=== PATIENT | female | born 1950 | race Caucasian/White ===

== ENCOUNTER 2020-01-17 14:19 | Outpatient (REF) | payer MEDICARE, SELFPAY ==
--- NOTE | 2020-01-17 15:36 | XR_ITS ---
EXAMINATION: XR CHEST CLINICAL INFORMATION: Other specified symptoms and signs involving the circulatory and respiratory systems; R09.89 COMPARISON: Chest radiographs 05/10/2014, 06/09/2013 TECHNIQUE: 2 frontal views and a lateral projection are obtained for a total of 3 views. FINDINGS: The heart is normal in size. The costophrenic sulci are clear. There is even distribution pulmonary vascularity which may suggest some elevated pulmonary venous pressures. There is coarsening of the bronchiolar markings. There is no lobar segmental airspace consolidation or groundglass opacity. The hilar and mediastinal contours and visualized bony structures show no acute abnormality. XR/XR chest 2V IMPRESSION: 1. Even distribution pulmonary vascularity which may suggest mild elevated pulmonary venous pressures. 2. Coarsening bronchiolar markings. No airspace consolidation or effusion.
[2020-01-17 16:37] LABS: MANUAL DIFF FLAG NO
[2020-01-17 16:42] LABS: Basophils Absolute Auto 0.1 X10*3/uL (0.0-0.2); Basophils Percent Auto 0.7 % (0-2); Eosinophils Absolute Auto 0.1 X10*3/uL (0.0-0.4); Eosinophils Percent Auto 0.9 % (0-4); Hematocrit 40.1 % (37-47); Hemoglobin 12.9 g/dl (12.0-16.0); Imm Gran Abs Auto 0.03 X10*3/uL (0.00-0.03); Imm Gran Pct Auto 0.4 % (0.0-0.4); Mean Corpuscular HGB Conc 32.2 g/dl (31.0-35.0); Mean Corpuscular Hemoglobin 31.4 pg (27.0-33.0); Mean Corpuscular Volume 97.6 fL (80-98); Mean Platelet Volume 11.7 fL (9.4-12.3); Monocytes Absolute Auto 0.5 X10*3/uL (0.1-1.2); Monocytes Percent Auto 6.1 % (2-11); Neutrophils Absolute Auto 3.8 X10*3/uL (2.0-8.3); Neutrophils Percent Auto 51.9 % (45-73); Platelet Count 264 X10*3/uL (160-400); Red Blood Count 4.11 X10*6/uL (4.20-5.50); Red Cell Distribution Width 12.8 % (11.0-16.0); White Blood Count 7.4 X10*3/uL (4.8-10.8)
[2020-01-17 16:52] LABS: D Dimer 200 NG/ML
[2020-01-17 17:04] LABS: Anion Gap 14 (12-20); Blood Urea Nitrogen 14 mg/dL (9-16); Calcium 9.6 mg/dL (8.4-10.2); Carbon Dioxide 30 mmol/L (22-29); Chloride 102 mmol/L (96-108); Estimated Glomerular Filt Rate > 60; Glucose Random 90 mg/dL (60-115); Potassium 4.2 mmol/l (3.3-5.1); Sodium 142 mmol/L (135-145)
[2020-01-17 17:29] LABS: Erythrocyte Sedimentation Rate 36 MM/HR (0-20)
[2020-01-18 12:32] LABS: Scleroderma 70 Antibody <1.0 NEG AI (<1.0 NEG)
[2020-01-19 13:56] LABS: Anti Nuclear Antibody Screen NEGATIVE (NEGATIVE)
[2020-01-21 20:31] LABS: Angiotensin Converting Enzyme 30 U/L (9-67)
== END 2020-01-17 14:20 | disposition home or self-care (01) ==
LOC: HO.LAB 14:19
PROVIDERS: PCP Emergency Medicine; Visit Provider Hospitalist
DX: I27.21 Secondary pulmonary arterial hypertension (principal); R09.89 Other specified symptoms and signs involving the circulatory and respiratory systems; R06.00 Dyspnea, unspecified; G47.33 Obstructive sleep apnea (adult) (pediatric); G47.00 Insomnia, unspecified; Z79.899 Other long term (current) drug therapy; Z79.82 Long term (current) use of aspirin
CPT/HCPCS: 36415; 71046; 80048; 82164; 85025; 85379; 85652; 86038; 86039; 86235; 99204; 99212

== ENCOUNTER → 2020-01-24 10:57 | Outpatient (REF) | payer MEDICARE, SELFPAY ==
[2020-01-24 12:28] LABS: Estimated Average Glucose 123 mg/dL; Hemoglobin A1c % 5.9 %
[2020-01-24 12:45] LABS: Alanine Aminotransferase 20 U/L (0-31); Albumin Level 4.2 g/dL (3.5-5.0); Alkaline Phosphatase 75 U/L (39-117); Anion Gap 14 (12-20); Aspartate Amino Transferase 17 U/L (5-31); Bilirubin Total 0.4 mg/dL (0.0-1.0); Blood Urea Nitrogen 15 mg/dL (9-16); Calcium 8.7 mg/dL (8.4-10.2); Carbon Dioxide 30 mmol/L (22-29); Chloride 102 mmol/L (96-108); Cholesterol 140 mg/dL; Estimated Glomerular Filt Rate > 60; Glucose Random 134 mg/dL (60-115); HDL Cholesterol 48 mg/dL; LDL Cholesterol Calculated 75 mg/dl; Potassium 4.2 mmol/l (3.3-5.1); Sodium 142 mmol/L (135-145); Total Protein 7.5 g/dL (6.5-8.0); Triglycerides 85 mg/dL
== END ==
LOC: HO.SL 10:57
PROVIDERS: PCP Emergency Medicine; Visit Provider Hospitalist
DX: E11.9 Type 2 diabetes mellitus without complications (principal); E78.2 Mixed hyperlipidemia; I11.0 Hypertensive heart disease with heart failure; I50.32 Chronic diastolic (congestive) heart failure; G47.33 Obstructive sleep apnea (adult) (pediatric)
CPT/HCPCS: 80053; 80061; 83036; 95806

== ENCOUNTER → 2020-03-21 14:26 | Outpatient (BNVA) | payer MEDICARE, SELFPAY | PROVIDERS: PCP Emergency Medicine; Visit Provider Hospitalist | DX: I27.21 Secondary pulmonary arterial hypertension (principal); G47.33 Obstructive sleep apnea (adult) (pediatric); R09.89 Other specified symptoms and signs involving the circulatory and respiratory systems; R06.00 Dyspnea, unspecified | CPT/HCPCS: 99212 ==

== ENCOUNTER 2020-03-29 10:11 | Outpatient (REF) | payer MEDICARE, SELFPAY | END 2020-03-29 10:12 | disposition home or self-care (01) | LOC: HO.LAB 10:11 | PROVIDERS: Visit Provider Internal Medicine | DX: Z20.828 Contact with and (suspected) exposure to other viral communicable diseases (principal) | CPT/HCPCS: 36415; C9803; U0003 ==

== ENCOUNTER → 2020-05-19 14:05 | Outpatient (BNVA) | payer MEDICARE, SELFPAY | PROVIDERS: Visit Provider Hospitalist | DX: G47.33 Obstructive sleep apnea (adult) (pediatric) (principal); I27.21 Secondary pulmonary arterial hypertension | CPT/HCPCS: 99212 ==

== ENCOUNTER 2020-07-11 10:36 | Outpatient (REF) | payer MEDICARE, SELFPAY ==
--- NOTE | 2020-07-11 16:46 | PFT_ITS ---
FLOWS: FEV1 of 59% of predicted at 1.16 L. FVC 46% of predicted at 1.19 L. FEV1 to FVC ratio of 0.98. No bronchodilator response. LUNG VOLUMES: Total lung capacity 49% of predicted at 2.20 L. Residual volume 47% of predicted at 0.93 L. Slow vital capacity 50% of predicted at 1.27 L. Expiratory reserve volume 35% of predicted at 0.20 L. Diffusion capacity is moderately decreased, diffusion capacity adjust to normal after correction for alveolar ventilation. IMPRESSION: Moderate to severe restrictive ventilatory defect with no bronchodilator response. Cirilo Steiner MD AP/MODL / [id number]
== END 2020-07-11 10:37 | disposition home or self-care (01) ==
LOC: HO.RESP 10:36
PROVIDERS: Visit Provider Hospitalist
DX: R06.00 Dyspnea, unspecified (principal)
CPT/HCPCS: 94060; 94727; 94729

== ENCOUNTER 2020-07-18 08:44 | Outpatient (REF) | payer MEDICARE, SELFPAY ==
--- NOTE | ~2020-07-18 | US_ITS ---
EXAMINATION: US ABDOMEN LIMITED CLINICAL INFORMATION: Fatty change of liver. COMPARISON: Ultrasound abdomen 08/12/2019. Ultrasound renals 03/29/2019. X-ray KUB 09/09/2018. CT abdomen pelvis 09/08/2018. Exam is limited due to patient body habitus. TECHNIQUE: Real-time imaging of the right upper quadrant abdominal viscera. FINDINGS: PANCREAS: Normal. LIVER: The liver is normal in size. The liver contour is normal. Liver echotexture is increased. No focal hepatic lesion. There is no intrahepatic biliary duct dilatation seen. GALLBLADDER: Surgically absent. COMMON BILE DUCT: The common bile duct is slightly dilated and measures 1.2 cm in diameter. This may be normal postcholecystectomy. This is unchanged from previous exam. RIGHT KIDNEY: There is a 1 x 0.7 x 0.9 cm cyst in the upper pole. No hydronephrosis or renal calculi. The kidney measures 13.0 cm in maximum dimension. FREE FLUID: None. US/US abdomen limited IMPRESSION: Limited exam. Slightly echogenic liver probably representing fatty infiltration. Postcholecystectomy. Slightly dilated common bile duct similar to previous exam. This may be normal postcholecystectomy. Small right renal cyst.
== END 2020-07-18 08:45 | disposition home or self-care (01) ==
LOC: HO.US 08:44
PROVIDERS: Visit Provider Nurse Practitioner
DX: K76.0 Fatty (change of) liver, not elsewhere classified (principal)
CPT/HCPCS: 76705

== ENCOUNTER → 2020-07-24 09:01 | Outpatient (BNVA) | payer MEDICARE, SELFPAY | PROVIDERS: Visit Provider Nurse Practitioner | DX: Z13.89 Encounter for screening for other disorder (principal) | CPT/HCPCS: Q3014 ==

== ENCOUNTER 2020-10-19 13:20 | Outpatient (REF) | payer MEDICARE, SELFPAY ==
--- NOTE | ~2020-10-19 | US_ITS ---
EXAMINATION: US RETROPERITONEAL LIMITED (RENAL ONLY) CLINICAL INFORMATION: Renal stone. COMPARISON: Ultrasound abdomen limited dated 07/18/2020. Ultrasound abdomen complete dated 08/12/2019. KUB dated 09/09/2018. CT abdomen and pelvis without contrast dated 09/08/2018. TECHNIQUE: Real-time imaging of the kidneys. FINDINGS: RIGHT KIDNEY: 12.9 x 5.2 x 5.7 cm (SAG x AP x TRV). The kidney is normal in size, contour, and echogenicity. Renal cortical thickness is normal. No renal calculi or hydronephrosis. There is an anechoic midpole cyst measuring 0.9 x 0.9 x 1.1 cm. LEFT KIDNEY: 12.4 x 4.8 x 4.5 cm (SAG x AP x TRV). The kidney is normal in size, contour, and echogenicity. Renal cortical thickness is normal. No renal calculi or hydronephrosis. There is an anechoic midpole cyst measuring 1.5 x 1.0 x 0.9 cm. US/US renal BI IMPRESSION: Bilateral renal cysts. Bilateral renal cysts were visualized on the previous ultrasound exam 08/12/2019. No echogenic stones or hydronephrosis.
== END 2020-10-19 13:21 | disposition home or self-care (01) ==
LOC: HO.US 13:20
PROVIDERS: Visit Provider Urology
DX: N20.0 Calculus of kidney (principal)
CPT/HCPCS: 76775

== ENCOUNTER 2020-10-30 06:33 | Day surgery (SDC) | payer MEDICARE, SELFPAY ==
[2020-10-23 12:35] VITALS: BMI 35.9
[2020-10-30 06:53] VITALS: BP 148/57; PULSE 67; RESP 16; TEMP 36.4; O2SAT 95
--- NOTE | 2020-10-30 07:08 | MHC.SHP ---
Pre-Procedural Eval Section A Date of Service: 10/30/20 The patient is an INPATIENT: No The History & Physical has been completed within 30 days and I have reviewed it.: No Section B Chief Complaint: colon cancer screening, GERD Details of Present Illness: Colon cancer screening, diarrhea, constipation, abdominal, GERD Relevant Family History (Specify if Yes): No Relevant Social History: None Present Medications: see Short Stay Collaborative assessment Medical History: Significant History (Bibasilar crackles Dyspnea Insomnia JAREK (obstructive sleep apnea) Pulmonary arterial hypertension) History of Previous Operations: Relevant previous surgery/procedure and date(s) (H/O esophagogastroduodenoscopy History of colonoscopy History of hernia repair) Allergies: Allergies Allergy/AdvReac Type Severity Reaction Status Date / Time morphine [MORPHINE] Allergy Mild NAUSEA, Verified 07/24/20 09:01 VOMITING, DIZZINESS, HOT FLASHES lactose Allergy Mild GI Upset Uncoded 05/19/20 14:45 Review of Systems Sugical H&P ROS: Negative: Constitution, Cardiovascular and Respiratory and Yes, Specify: Gastrointestinal (diarrhea and constipation) Exam Surgical H&P Exam: Normal: Heart, Normal: Lungs, Normal: Extremities and Normal: Abdomen Plan Diagnosis/Plan: Unchanged I have reviewed the history and physical and performed a pertinent physical examination on my patient. No changes have occurred unless specified.
[2020-10-30 07:10] LABS: Glucose, Whole Blood 154 mg/dL (60-115)
--- NOTE | 2020-10-30 07:15 | P.CONAN_ITS ---
[facility] Active Problems Active Problems: All Active Problems (Updated 10/23/20 @ 12:33 by Enedina warner) Hepatic steatosis (Acute) GERD (gastroesophageal reflux disease) (Acute) Abdominal bloating (Acute) Colon cancer screening (Acute) JAREK (obstructive sleep apnea) (Acute) Insomnia (Acute) JAREK (obstructive sleep apnea) (Acute) Pulmonary arterial hypertension (Acute) Bibasilar crackles (Acute) Dyspnea (Acute) Past Medical History Medical History Bibasilar crackles Diabetes Dyspnea History of postoperative nausea and vomiting Insomnia JAREK (obstructive sleep apnea) Pulmonary arterial hypertension Family History Family History Father Hx of diabetes insipidus Mother Hx of diabetes insipidus Surgical History Surgical History H/O esophagogastroduodenoscopy History of colonoscopy History of hernia repair History of Problems with Anesthesia: No Social History Social History Alcohol intake: never Patient Tobacco Use Status: Never used Tobacco Advance Directives Information Provided: No Meds Allergies Allergy/AdvReac Type Severity Reaction Status Date / Time morphine [MORPHINE] Allergy Mild NAUSEA, Verified 07/24/20 09:01 VOMITING, DIZZINESS, HOT FLASHES lactose Allergy Mild GI Upset Uncoded 05/19/20 14:45 Home Medications Medication Instructions Recorded Confirmed Last Taken Type albuterol sulfate 90 mcg/actuation 2 puff INHALATION Q4-6H PRN 01/17/20 10/23/20 Unknown History aerosol inhaler amlodipine 10 mg tablet 10 mg PO DAILY 01/17/20 10/23/20 10/30/20 History aspirin 81 mg tablet,delayed 81 mg PO DAILY 01/17/20 10/23/20 Unknown History release atorvastatin 40 mg tablet 40 mg PO BEDTIME 01/17/20 10/23/20 Unknown History cholecalciferol (vitamin D3) 50 50 mcg PO DAILY 01/17/20 10/23/20 Unknown History mcg (2,000 unit) tablet cyanocobalamin (vitamin B-12) 1,000 mcg PO DAILY 01/17/20 10/23/20 Unknown History 1,000 mcg tablet flu vacc [id number](65yr up)-PF 240 ml IM 01/17/20 05/19/20 Unknown History mcg/0.7 mL intramuscular syringe furosemide 20 mg tablet 20 mg PO DAILY 01/17/20 10/23/20 Unknown History losartan 100 mg tablet 100 mg PO DAILY 01/17/20 10/23/20 Unknown History melatonin 5 mg tablet 10 mg PO BEDTIME 01/17/20 10/23/20 Unknown History metoprolol succinate 200 mg 200 mg PO DAILY 01/17/20 10/23/20 10/30/20 History tablet,extended release 24 hr oxycodone-acetaminophen 5 mg-325 1 tab PO TID PRN 01/17/20 10/23/20 Unknown History mg tablet sitagliptin 50 mg tablet 50 mg PO QAM 01/17/20 10/23/20 Unknown History blood sugar diagnostic #10 ea 07/24/20 Unknown History lancets 33 gauge #100 ea 07/24/20 Unknown History metformin 500 mg tablet,extended 1,000 mg PO BID 07/24/20 10/23/20 Unknown History release 24 hr Exam Exam Date and Time: October 30, 2020 0715 Height,Weight and Vital Signs: Height 5 ft Weight 83.461 kg Last Vital Signs Temp 97.5 F 10/30/20 06:53 Pulse 67 10/30/20 06:53 Resp 16 10/30/20 06:53 BP 148/57 H 10/30/20 06:53 Pulse Ox 95 10/30/20 06:53 Pertinent Lab Results Pertinent Lab Results: Laboratory Tests 10/30/20 06:59 POC Glucose 154 H Airway Mallampati Class: II TM Dist: >3cm Neck ROM: Full Loose/Missing/Broken Teeth: No Heart: RRR Lungs: bibasilar cerackles Assessment and Plan Assessment Anesthesia Assessment: Anesthesia Plan Discussed and Chart Reviewed Final Anesthetic Review History of Problems with Anesthesia: No NPO: Yes ASA Class: III Final Preanesthetic Review: Meds/Allgs Chart Reviewed, Consent Obtained/Reviewed and Anes Risks/Benef Reviewed Patient Risk: Intermediate Procedure Risk: Low Anesthetic Plan Anesthetic Plan: MAC: Disposition: Standard PACU
--- NOTE | 2020-10-30 07:40 | P.BOP_ITS ---
Brief Operative Note Date of Service: 10/30/20 Pre-op diagnosis: Colon cancer screening, abdominal pain, diarrhea, constipation Post-op diagnosis: other (Colon polyps, diverticulosis) Procedure: COLONOSCOPY TILL CECUM WITH BIOPSIES AND SNARE POLYPECTOMY Consent: Indications for the procedure and potential complications of bleeding, perforation, reaction to medications and missed diagnosis were discussed with the patient and informed consent was obtained. Instrument: Olympus CF HQ 190 L variable stiffness adult colonoscope Monitoring: Vital signs and clinical assessment, intermittent blood pressure monitoring, continuous EKG monitoring, Pulse oximetry and Carbon Dioxide monitoring were done throughout the procedure. Colon withdrawl time was 16 minutes. Procedure: The patient was placed in the left lateral decubitis position and pre-procedure medications were administered. After a digital rectal examination of the ano-rectum, the video colonoscope was inserted into the rectum and advanced through the colon to the cecum. The colonoscope was slowly withdrawn in a retrograde panoramic fashion and the colon mucosa was carefully examined including a retroflexed view of the rectum. Findings and interventions are described below. Procedure Difficulty: LLQ pressure applied to intubate the cecum Findings: Terminal Ileum: Not evaluated Cecum: Normal Ascending Colon: A 3-4 mm sessile polyp removed with a cold bx Transverse Colon: Two 10-12 mm sessile polyps removed with a cold snare Descending Colon: Moderate diverticulosis Sigmoid Colon: Severe diverticulosis Rectum: Normal Ano-rectum: Moderate internal hemorrhoids Colon preparation: Good Impression and Post Procedure Diagnosis: Colonoscopy Findings: Three small to medium sized polyps removed Moderate to severe diverticulosis seen in the left colon Plan: Await pathology results Patient has an appointment on 11/13/20 in the GI Clinic with Jeannine Rendon NP . Repeat Colonoscopy interval based on path results - in 3-5 years if polyps are adenomatous and 10 years if polyps are hyperplastic. Above findings were reviewed with the patient and colon polyps and diverticulosis handouts were given in the discharge area Surgeon: Pooja Irving MD Anesthesia: MAC (Leora Johnson CRNA) Was an Freight Forwarder used for this Procedure?: Yes Freight Forwarder: Gil Valadez Estimated blood loss (mL): 0 Pathology: other (A- ACSENDING COLON POLYP B- RANDOM COLON BXS R/O MICROSCOPIC COLITIS. C- POLYPS TRANSVERSE COLON) Condition: stable Disposition: PACU
[2020-10-30] MEDS: Lactated Ringers 1,000 ML 50 ML IVCONT (07:56)
[2020-10-30 08:29] VITALS: BP 97/51; PULSE 78; RESP 14; TEMP 36.2; O2SAT 96
[2020-10-30 08:44] VITALS: BP 118/64; PULSE 70; RESP 16; TEMP 36.2; O2SAT 97
--- NOTE | 2020-11-02 18:55 | P.OP_ITS ---
Operative Note Operative Note Date of Service: 10/30/20 Narrative: Pre-op diagnosis:?Colon cancer screening, abdominal pain, diarrhea, constipation Post-op diagnosis:?other (Colon polyps, diverticulosis) Procedure:? COLONOSCOPY TILL CECUM WITH BIOPSIES AND SNARE POLYPECTOMY Consent: Indications for the procedure and potential complications of bleeding, perforation, reaction to medications and missed diagnosis were discussed with the patient and informed consent was obtained. Instrument: Olympus CF HQ 190 L variable stiffness adult colonoscope Monitoring: Vital signs and clinical assessment, intermittent blood pressure monitoring, continuous EKG monitoring, Pulse oximetry and Carbon Dioxide monitoring were done throughout the procedure. Colon withdrawl time was 16 minutes. Procedure: The patient was placed in the left lateral decubitis position and pre-procedure medications were administered. After a digital rectal examination of the ano-rectum, the video colonoscope was inserted into the rectum and advanced through the colon to the cecum. The colonoscope was slowly withdrawn in a retrograde panoramic fashion and the colon mucosa was carefully examined including a retroflexed view of the rectum. Findings and interventions are described below. Procedure Difficulty:? LLQ pressure applied to intubate the cecum Findings: Terminal Ileum: Not evaluated Cecum:? Normal Ascending Colon:? A 3-4 mm sessile polyp removed with a cold bx Transverse Colon:? Two 10-12 mm sessile polyps removed with a cold snare Descending Colon:? Moderate diverticulosis Sigmoid Colon:? Severe diverticulosis Rectum:? Normal Ano-rectum:? Moderate internal hemorrhoids Colon preparation:? Good? Impression and Post Procedure Diagnosis: Colonoscopy Findings: Three small to medium sized polyps removed Moderate to severe diverticulosis seen in the left colon Plan: Await pathology results Patient has an appointment on 11/13/20 in the GI Clinic with? Jeannine Rendon NP . Repeat Colonoscopy interval based on path results - in 3-5 years if polyps are adenomatous and 10 years if polyps are hyperplastic. Above findings were reviewed with the patient and colon polyps and diverticulosis handouts were given in the discharge area Surgeon:?Pooja Irving MD Anesthesia:?MAC (Leora Johnson CRNA) Was an Washing Machine Repairer used for this Procedure?:?Yes Washing Machine Repairer:?Gil Valadez Estimated blood loss (mL):?0 Pathology:?other (A- ACSENDING COLON POLYP? B- RANDOM COLON BXS ? R/O MICROSCOPIC COLITIS.? C- POLYPS TRANSVERSE COLON) Condition:?stable Disposition:?PACU
== END 2020-10-30 09:36 ==
PROVIDERS: Visit Provider Internal Medicine Gastroenterology
PROC: 0DJD8ZZ Inspection of Lower Intestinal Tract, Via Natural or Artificial Opening Endoscopic (ICD-10-PCS; CPT 45378; principal; 2020-10-30 07:30)
DX: Z12.11 Encounter for screening for malignant neoplasm of colon (principal); D12.2 Benign neoplasm of ascending colon; D12.3 Benign neoplasm of transverse colon; K57.30 Diverticulosis of large intestine without perforation or abscess without bleeding; K52.9 Noninfective gastroenteritis and colitis, unspecified; K21.9 Gastro-esophageal reflux disease without esophagitis; E11.9 Type 2 diabetes mellitus without complications; I27.21 Secondary pulmonary arterial hypertension; G47.33 Obstructive sleep apnea (adult) (pediatric); Z79.84 Long term (current) use of oral hypoglycemic drugs; Z79.82 Long term (current) use of aspirin; Z79.899 Other long term (current) drug therapy; Z88.8 Allergy status to other drugs, medicaments and biological substances
CPT/HCPCS: 45385; 45380; 82947; 88305

== ENCOUNTER → 2020-11-03 09:45 | Outpatient (BNVA) | payer MEDICARE, SELFPAY | DX: N32.81 Overactive bladder (principal); N28.1 Cyst of kidney, acquired | CPT/HCPCS: 99212 ==

== ENCOUNTER 2020-11-13 10:44 | Outpatient (REF) | payer MEDICARE, SELFPAY ==
--- NOTE | ~2020-11-13 | XR_ITS ---
EXAMINATION: XR THORACOLUMBAR SPINE CLINICAL INFORMATION: Radicular pain. COMPARISON: Chest x-ray January 17, 2020 TECHNIQUE: 2 views FINDINGS: Thoracic vertebrae have normal height and alignment. No fracture or bone destruction. There is multilevel degenerative spondylosis. There is [id number] multilevel disc height narrowing and bridging and nonbridging endplate spurs of the vertebrae. No paraspinal mass. XR/XR thoracic spine 2V IMPRESSION: Moderate to marked multilevel degenerative spondylosis of the spine. There is no acute abnormality of the spine.
[2020-11-13 11:52] LABS: MANUAL DIFF FLAG NO
[2020-11-13 12:01] LABS: Basophils Percent Auto 0.6 % (0-2); Eosinophils Absolute Auto 0.1 X10*3/uL (0.0-0.4); Eosinophils Percent Auto 1.2 % (0-4); Hemoglobin 12.7 g/dl (12.0-16.0); Imm Gran Abs Auto 0.02 X10*3/uL (0.00-0.03); Imm Gran Pct Auto 0.3 % (0.0-0.4); Lymphocytes Percent Auto 31.4 % (20-40); Mean Corpuscular HGB Conc 32.6 g/dl (31.0-35.0); Mean Corpuscular Hemoglobin 31.4 pg (27.0-33.0); Mean Corpuscular Volume 96.3 fL (80-98); Mean Platelet Volume 12.1 fL (9.4-12.3); Monocytes Absolute Auto 0.3 X10*3/uL (0.1-1.2); Monocytes Percent Auto 5.3 % (2-11); Neutrophils Absolute Auto 3.9 X10*3/uL (2.0-8.3); Neutrophils Percent Auto 61.2 % (45-73); Platelet Count 196 X10*3/uL (160-400); Red Blood Count 4.05 X10*6/uL (4.20-5.50); Red Cell Distribution Width 12.6 % (11.0-16.0); White Blood Count 6.4 X10*3/uL (4.8-10.8)
[2020-11-13 12:26] LABS: Alanine Aminotransferase 23 U/L (0-31); Albumin Level 4.2 g/dL (3.5-5.0); Alkaline Phosphatase 86 U/L (39-117); Anion Gap 10 (12-20); Aspartate Amino Transferase 18 U/L (5-31); Bilirubin Total 0.5 mg/dL (0.0-1.0); Blood Urea Nitrogen 14 mg/dL (9-16); Calcium 9.5 mg/dL (8.4-10.2); Carbon Dioxide 32 mmol/L (22-29); Chloride 102 mmol/L (96-108); Estimated Glomerular Filt Rate > 60; Glucose Random 223 mg/dL (60-115); Potassium 4.3 mmol/L (3.3-5.1); Sodium 140 mmol/L (135-145); Total Protein 7.5 g/dL (6.5-8.0)
[2020-11-15 11:48] LABS: Alpha Fetoprotein 1.9 ng/mL
== END 2020-11-13 10:45 | disposition home or self-care (01) ==
LOC: HO.LAB 10:44
PROVIDERS: Visit Provider Nurse Practitioner
DX: R10.9 Unspecified abdominal pain (principal); G89.29 Other chronic pain; K21.9 Gastro-esophageal reflux disease without esophagitis; K76.0 Fatty (change of) liver, not elsewhere classified; I27.21 Secondary pulmonary arterial hypertension
CPT/HCPCS: 36415; 72070; 80053; 82105; 85025; 99212

== ENCOUNTER → 2020-11-24 09:15 | Outpatient (BNVA) | payer MEDICARE, SELFPAY | CPT/HCPCS: Q3014 ==

== ENCOUNTER → 2021-02-13 13:33 | Outpatient (BNVA) | payer MEDICARE, SELFPAY | PROVIDERS: Visit Provider Nurse Practitioner | DX: K21.9 Gastro-esophageal reflux disease without esophagitis (principal); M47.814 Spondylosis without myelopathy or radiculopathy, thoracic region; R14.0 Abdominal distension (gaseous) | CPT/HCPCS: 99212 ==

== ENCOUNTER 2021-08-14 13:06 | Outpatient (REF) | payer OTHER, SELFPAY ==
--- NOTE | ~2021-08-14 | MM_ITS ---
EXAMINATION: MM SCREENING DIGITAL BREAST TOMOSYNTHESIS, BILATERAL CLINICAL INFORMATION: Screening. Asymptomatic. The lifetime risk of breast cancer based on the Tyrer-Cuzick Model is 3%. COMPARISON: Mammography: 01/20/2019, 09/16/2016, 05/15/2015 TECHNIQUE: Digital breast tomosynthesis is performed in both the craniocaudal and mediolateral oblique views along with computer-aided detection (CAD). Synthesized 2D images are generated from the tomosynthesis. FINDINGS: There are scattered areas of fibroglandular density (ACR BI-RADS breast composition Category b). There are no significant masses, abnormal calcifications, or other abnormalities. No developing density or architectural abnormality. The axilla are unremarkable. MM/MM tomosynthesis screening BI IMPRESSION: No mammographic evidence of malignancy. ASSESSMENT: BI-RADS 1: Negative RECOMMENDATION: Routine annual mammography screening. This patient's information was entered into a reminder system with a target due date for their next mammogram.
== END 2021-08-14 13:07 | disposition home or self-care (01) ==
LOC: HO.MAMMO 13:06
PROVIDERS: PCP General Practice; Visit Provider General Practice
DX: Z12.31 Encounter for screening mammogram for malignant neoplasm of breast (principal)
CPT/HCPCS: 77063; 77067

== ENCOUNTER → 2021-08-16 13:15 | Outpatient (BNVA) | payer OTHER, SELFPAY | PROVIDERS: PCP General Practice; Referring Provider General Practice; Visit Provider Nurse Practitioner | DX: K21.9 Gastro-esophageal reflux disease without esophagitis (principal); R14.0 Abdominal distension (gaseous); R10.30 Lower abdominal pain, unspecified; M47.814 Spondylosis without myelopathy or radiculopathy, thoracic region | CPT/HCPCS: 99212 ==

== ENCOUNTER 2021-09-25 08:59 | Outpatient (REF) | payer OTHER, SELFPAY ==
--- NOTE | ~2021-09-25 | CT_ITS ---
EXAMINATION: CT ABDOMEN AND PELVIS WITHOUT CONTRAST CLINICAL INFORMATION: Lower abdominal pain COMPARISON: Previous CT of the abdomen and pelvis August 2018, abdominal ultrasound June 2020 TECHNIQUE: Multidetector volumetric imaging was performed from the superior aspect of the liver through the pubic symphysis. Sagittal and coronal reformatted images were obtained on the technologist's workstation. This CT examination was performed using dose optimization techniques as appropriate, variously including the following: *Automated exposure control *Adjustment of mA and/or kV according to patient size (this includes techniques or standardized protocols for targeted exams where dose is matched to indication/reason for exam; i.e. extremities or head) *Use of iterative reconstruction technique DLP: 720 mGy-cm FINDINGS: LUNG BASES: The visualized lung bases are unremarkable. LIVER, GALLBLADDER, AND BILIARY TREE: The liver is normal in size, shape, and attenuation. No focal hepatic lesion. The gallbladder is not seen and has presumably been removed. There is no intrahepatic biliary duct dilatation. There is mild dilatation of the common bile duct measuring up to 1 cm. This may be normal postcholecystectomy and is similar to previous exam. PANCREAS: There is fatty filtration of the pancreas. SPLEEN: Unremarkable. ADRENAL GLANDS: Unremarkable. KIDNEYS AND URETERS: The kidneys are normal in size, shape, and attenuation. No hydronephrosis, hydroureter, or calculi seen. No perinephric stranding. BLADDER: Not optimally distended. GASTROINTESTINAL TRACT: There is mild diverticulosis of the colon. No evidence of diverticulitis is seen. There is mild wall thickening of the distal duodenum and proximal jejunum. Small and large bowel is otherwise normal. The appendix is unremarkable. There is abnormal appearance of the distal stomach questionable for ulcer for example axial image 19 and coronal reconstructed image 66 and sagittal reconstructed image 121. ABDOMINAL WALL: Postsurgical changes to the abdominal wall. LYMPH NODES: Normal. VASCULAR: Unremarkable. PELVIC VISCERA: The uterus appears to have been removed. No pelvic mass. OSSEOUS STRUCTURES: Degenerative changes of the spine. CT/CT abdomen pelvis wo con IMPRESSION: Abnormal appearance to the distal stomach questionable for ulcer. Correlation with endoscopy recommended. Mild wall thickening of the distal duodenum and proximal jejunum. Mild diverticulosis of the colon. No evidence of diverticulitis. Fleischner guidelines were followed.
== END 2021-09-25 09:00 | disposition home or self-care (01) ==
LOC: HO.CT 08:59
PROVIDERS: Visit Provider Nurse Practitioner
DX: R10.30 Lower abdominal pain, unspecified (principal)
CPT/HCPCS: 74176

== ENCOUNTER 2021-10-16 12:47 | Outpatient (REF) | payer OTHER, SELFPAY ==
--- NOTE | ~2021-10-16 | US_ITS ---
EXAMINATION: US RETROPERITONEAL LIMITED (RENAL ONLY) CLINICAL INFORMATION: Cyst of kidney, acquired. COMPARISON: CT abdomen and pelvis 09/25/2021. Renal ultrasound 10/19/2020. Limited abdominal ultrasound 07/18/2020. X-ray abdomen KUB 09/09/2018. TECHNIQUE: Real-time imaging of the kidneys. FINDINGS: RIGHT KIDNEY: 12.2 x 4.9 x 5.1 cm (SAG x AP x TRV). The kidney is normal in size, contour, and echogenicity. Renal cortical thickness is normal. No renal calculi or hydronephrosis. There is a midpole 0.9 cm simple cyst. No follow-up imaging recommended. LEFT KIDNEY: 12.8 x 4.2 x 4.1 cm (SAG x AP x TRV). The kidney is normal in size, contour, and echogenicity. Renal cortical thickness is normal. No renal calculi or hydronephrosis. There is a 1 cm midpole simple cyst. No follow-up imaging recommended. US/US renal BI IMPRESSION: Small simple cysts of the kidneys, similar to previous. No follow-up imaging is recommended. No suspicious findings.
== END 2021-10-16 12:48 | disposition home or self-care (01) ==
LOC: HO.US 12:47
DX: N28.1 Cyst of kidney, acquired (principal)
CPT/HCPCS: 76775

== ENCOUNTER → 2021-10-26 11:31 | Outpatient (BNVA) | payer OTHER, SELFPAY | PROVIDERS: PCP General Practice; Visit Provider Nurse Practitioner | DX: R10.30 Lower abdominal pain, unspecified (principal); K21.9 Gastro-esophageal reflux disease without esophagitis; R14.0 Abdominal distension (gaseous) | CPT/HCPCS: 99212 ==

== ENCOUNTER 2021-11-02 13:54 | Outpatient (REF) | payer OTHER, SELFPAY ==
--- NOTE | ~2021-11-02 | XR_ITS ---
EXAMINATION: XR CHEST CLINICAL INFORMATION: Other specified symptoms and signs involving the circulatory and respiratory systems COMPARISON: Previous chest x-ray December 2019 TECHNIQUE: 2 views of the chest FINDINGS: The cardiac and mediastinal contours are unremarkable. The lung volumes are low. There are coarse lung markings. There is no pleural effusion or pneumothorax. There are degenerative changes of the spine. XR/XR chest 2V IMPRESSION: Low lung volumes and coarse lung markings.
== END 2021-11-02 13:55 | disposition home or self-care (01) ==
LOC: HO.XRAY 13:54
PROVIDERS: Visit Provider Hospitalist
DX: I27.21 Secondary pulmonary arterial hypertension (principal); J44.9 Chronic obstructive pulmonary disease, unspecified; R09.89 Other specified symptoms and signs involving the circulatory and respiratory systems
CPT/HCPCS: 71046; 99212

== ENCOUNTER → 2021-12-24 13:29 | Outpatient (BNVA) | payer OTHER, SELFPAY | PROVIDERS: PCP General Practice; Visit Provider Hospitalist | DX: J44.9 Chronic obstructive pulmonary disease, unspecified (principal); I27.21 Secondary pulmonary arterial hypertension; J84.9 Interstitial pulmonary disease, unspecified; R41.3 Other amnesia; R93.89 Abnormal findings on diagnostic imaging of other specified body structures; G47.33 Obstructive sleep apnea (adult) (pediatric) | CPT/HCPCS: 99212 ==

== ENCOUNTER 2022-01-04 14:54 | Outpatient (REF) | payer OTHER, SELFPAY ==
--- NOTE | ~2022-01-04 | CT_ITS ---
EXAMINATION: CT CHEST WITHOUT CONTRAST CLINICAL INFORMATION: Interstitial lung disease COMPARISON: Previous chest x-ray most recent October 2021 TECHNIQUE: Multidetector volumetric CT imaging of the chest was done. Axial MIP volume rendering provided. Sagittal and coronal reformatted images were obtained. This CT examination was performed using dose optimization techniques as appropriate, variously including the following: *Automated exposure control *Adjustment of mA and/or kV according to patient size (this includes techniques or standardized protocols for targeted exams where dose is matched to indication/reason for exam; i.e. extremities or head) *Use of iterative reconstruction technique DLP: 160 mGy-cm FINDINGS: FORK TRUCK DRIVER: Low lung volumes and increased interstitial markings. LUNGS: The lung volumes are low. There are are increased peripheral or subpleural reticular markings and some increased groundglass attenuation. This is seen diffusely throughout the lungs but greatest at the lung bases. There is mild traction bronchiolectasis in the right lower lobe. No honeycombing. No pulmonary nodule. No endobronchial or endotracheal lesion. MEDIASTINUM: The mediastinum is normal. CORONARY ARTERY CALCIFICATION: Moderate. PLEURA: There is no pleural effusion. No pleural mass or thickening. AXILLA: No lymphadenopathy. UPPER ABDOMEN: Unremarkable. OSSEOUS STRUCTURES: There are degenerative changes of the spine. CT/CT chest wo IV con IMPRESSION: Low lung volumes and increased peripheral reticular markings and groundglass attenuation. Findings are suggestive of interstitial lung disease. Findings are nonspecific but would be consistent with IPF/UIP. Coronary artery calcification. Fleischner guidelines were followed.
== END 2022-01-04 14:55 | disposition home or self-care (01) ==
LOC: HO.CT 14:54
PROVIDERS: Visit Provider Hospitalist
DX: J44.9 Chronic obstructive pulmonary disease, unspecified (principal); J84.9 Interstitial pulmonary disease, unspecified; R93.89 Abnormal findings on diagnostic imaging of other specified body structures
CPT/HCPCS: 71250

== ENCOUNTER 2022-01-18 12:55 | Outpatient (REF) | payer OTHER, SELFPAY ==
--- NOTE | 2022-01-18 15:00 | PFT_ITS ---
Forced vital capacity 48%, FEV1 of 60%, FEV1/FVC ratio is 96, FEF 25-75 is 173%, and MVV 86%. Post bronchodilator therapy, there is no change. Total lung capacity 49%. Residual volume 47%, and diffusion capacity is 56%. CONCLUSION: Severe restrictive pulmonary disorder. No evidence of obstructive airway disorder. No response to bronchodilator therapy. Nadine Vergara MD MSMaira/MODL / [phone]
== END 2022-01-18 12:56 | disposition home or self-care (01) ==
LOC: HO.RESP 12:55
PROVIDERS: PCP General Practice; Visit Provider Hospitalist
DX: J44.9 Chronic obstructive pulmonary disease, unspecified (principal); J84.9 Interstitial pulmonary disease, unspecified; R93.89 Abnormal findings on diagnostic imaging of other specified body structures
CPT/HCPCS: 94060; 94727; 94729

== ENCOUNTER → 2022-02-25 13:19 | Outpatient (BNVA) | payer OTHER, SELFPAY | PROVIDERS: PCP General Practice; Visit Provider Hospitalist | DX: I27.21 Secondary pulmonary arterial hypertension (principal); J44.9 Chronic obstructive pulmonary disease, unspecified; J84.9 Interstitial pulmonary disease, unspecified | CPT/HCPCS: 99212 ==

== ENCOUNTER 2022-04-07 16:07 | Emergency (ER) | payer OTHER, SELFPAY ==
--- NOTE | ~2022-04-07 | XR_ITS ---
EXAMINATION: XR CHEST CLINICAL INFORMATION: Right-sided chest pain. Pneumonia. COMPARISON: CT chest 01/04/2022. Chest radiograph 11/02/2021. TECHNIQUE: 2 views of the chest were obtained. FINDINGS: Low lung volumes are noted with the fourth anterior rib segments terminating projection with the lung bases. The cardiac silhouette is normal in size. No effusions or pneumothoraces identified. Biapical chronic appearing pleural parenchymal scarring of the lungs is noted. No focal pulmonary consolidation identified. Making allowances for low lung volumes, a grossly normal pattern of pulmonary vasculature is visualized. XR/XR chest 2V IMPRESSION: Low lung volumes; otherwise, no acute cardiopulmonary abnormalities identified. If clinical concern is present regarding possible right-sided pneumonia, consider repeat chest radiographs with deep inspiratory effort or CT of the thorax as clinically indicated which may better visualize acute right lung abnormalities.
[2022-04-07 16:12] VITALS: BP 133/97; PULSE 105; RESP 18; TEMP 36.8; O2SAT 97; BMI 29.2
--- NOTE | 2022-04-07 16:15 | ECG_ITS ---
Test Reason : CHEST PAIN Blood Pressure : / mmHG Vent. Rate : 102 BPM Atrial Rate : 102 BPM P-R Int : 136 ms QRS Dur : 074 ms QT Int : 334 ms P-R-T Axes : 046 001 022 degrees QTc Int : 435 ms Sinus tachycardia with occasional Premature ventricular complexes Otherwise normal ECG When compared with ECG of 09-SEP-2018 16:57, Nonspecific T wave abnormality, improved in Inferior leads Referred By: Talha Izaguirre Electronically Signed By:TERESA LEE MD
--- NOTE | 2022-04-07 16:17 | ED.CHESTPAIN ---
HPI - Chest Pain General Chief Complaint: Chest Pain <VLAD Vallejo - Last Filed: 04/07/22 20:03> Stated Complaint: chest pain/sob <VLAD Vallejo - Last Filed: 04/07/22 20:03> Time Seen by Provider: 04/07/22 17:55 <VLAD Vallejo - Last Filed: 04/07/22 20:03> Source: patient <Mitchel Cleaning MD - Last Filed: 04/07/22 20:07> Mode of arrival: ambulatory <Mitchel Cleaning MD - Last Filed: 04/07/22 20:07> Limitations: no limitations <Mitchel Cleaning MD - Last Filed: 04/07/22 20:07> History of Present Illness HPI narrative: Patient is 71 years old with history of COPD, interstitial lung fibrosis, pulmonary arterial hypertension, hypertension comes here for cough with bilateral chest pain for last 1 week patient been coughing with mucoid phlegm no fever no chills no palpitation leg swelling <Mitchel Cleaning MD - Last Filed: 04/07/22 20:07> Related Data Home Medications: Home Medications Medication Instructions Recorded Confirmed albuterol sulfate 90 mcg/actuation 2 puff inhalation Q4-6H PRN 01/17/20 11/24/20 aerosol inhaler Wheezing amlodipine 10 mg tablet 10 mg PO DAILY 01/17/20 11/24/20 aspirin 81 mg tablet,delayed 81 mg PO DAILY 01/17/20 11/24/20 release atorvastatin 40 mg tablet 40 mg PO BEDTIME 01/17/20 11/24/20 cholecalciferol (vitamin D3) 50 50 mcg PO DAILY 01/17/20 11/24/20 mcg (2,000 unit) tablet cyanocobalamin (vitamin B-12) 1,000 mcg PO DAILY 01/17/20 11/24/20 1,000 mcg tablet flu vacc [id number](65yr up)-PF 240 ml IM 01/17/20 11/24/20 mcg/0.7 mL intramuscular syringe furosemide 20 mg tablet 20 mg PO DAILY 01/17/20 11/24/20 losartan 100 mg tablet 100 mg PO DAILY 01/17/20 11/24/20 melatonin 5 mg tablet 10 mg PO BEDTIME 01/17/20 11/24/20 metoprolol succinate 200 mg 200 mg PO DAILY 01/17/20 11/24/20 tablet,extended release 24 hr oxycodone-acetaminophen 5 mg-325 1 tab PO TID PRN Pain 01/17/20 11/24/20 mg tablet sitagliptin phosphate 50 mg tablet 50 mg PO QAM 01/17/20 11/24/20 blood sugar diagnostic #10 ea 07/24/20 11/24/20 lancets 33 gauge #100 ea 07/24/20 11/24/20 metformin 500 mg tablet,extended 1,000 mg PO BID 07/24/20 11/24/20 release 24 hr alcohol swabs (Alcohol Prep Pads) 0 pad topical 11/03/20 11/24/20 Previous Rx's Medication Instructions Recorded budesonide-formoterol HFA 160 2 puff inhalation BID 30 days 11/02/21 mcg-4.5 mcg/actuation aerosol #10.2 grams inhaler (Symbicort) simethicone 180 mg capsule 180 mg PO BID #60 caps 12/17/21 oxybutynin chloride 10 mg 10 mg PO DAILY OAB 90 days #90 tabs 12/25/21 tablet,extended release 24 hr trazodone 50 mg tablet 100 mg PO BEDTIME #60 tabs 01/14/22 [id number] 1 cap PO QID 30 days #120 caps 03/22/22 24,000-76,000-120,000 unit capsule,delayed rel (Creon) omeprazole 20 mg capsule,delayed 20 mg PO BID #60 caps 03/22/22 release <VLAD Vallejo - Last Filed: 04/07/22 20:03> Allergies/Adverse Reactions: Allergies Allergy/AdvReac Type Severity Reaction Status Date / Time morphine [MORPHINE] Allergy Mild NAUSEA, Verified 04/07/22 16:11 VOMITING, DIZZINESS, HOT FLASHES lactose Allergy Mild GI Upset Uncoded 02/25/22 13:34 <VLAD Vallejo - Last Filed: 04/07/22 20:03> Review of Systems Review of Systems: Yes all other systems are reviewed and are negative <Mitchel Cleaning MD - Last Filed: 04/07/22 20:07> [facility] Past Medical History Medical History: Medical History (Updated 04/07/22 @ 20:00 by Mitchel Cleaning MD) Abnormal chest x-ray Bibasilar crackles COPD (chronic obstructive pulmonary disease) Diabetes Dyspnea History of postoperative nausea and vomiting ILD (interstitial lung disease) Insomnia Memory loss OAB (overactive bladder) JAREK (obstructive sleep apnea) Pulmonary arterial hypertension Renal cyst <VLAD Vallejo - Last Filed: 04/07/22 20:03> Surgical History: Surgical History H/O esophagogastroduodenoscopy History of colonoscopy History of hernia repair <VLAD Vallejo - Last Filed: 04/07/22 20:03> Family History Family History: Family History Father Hx of diabetes insipidus Mother Hx of diabetes insipidus <VLAD Vallejo - Last Filed: 04/07/22 20:03> Social History Social History: Social History Alcohol intake: never Patient Tobacco Use Status: Never used Tobacco Smoked in Last 30 Days: No Use of substances other than those prescribed or required for medical reasons: No Advance Directives: No Advance Directives Information Provided: Yes <VLAD Vallejo - Last Filed: 04/07/22 20:03> Physical Exam Vital Signs: Vital Signs: Last Vital Signs Temp 98.3 F 04/07/22 17:52 Pulse 94 04/07/22 18:40 Resp 18 04/07/22 18:40 BP 176/95 H 04/07/22 17:52 Pulse Ox 97 04/07/22 17:52 O2 Del Method 04/07/22 17:52 BMI result Body Mass Index 29.2 <VLAD Vallejo - Last Filed: 04/07/22 20:03> Vital Signs: Last Vital Signs Temp 98.3 F 04/07/22 17:52 Pulse 94 04/07/22 18:40 Resp 18 04/07/22 18:40 BP 176/95 H 04/07/22 17:52 Pulse Ox 97 04/07/22 17:52 O2 Del Method 04/07/22 17:52 BMI result Body Mass Index 29.2 <Mitchel Cleaning MD - Last Filed: 04/07/22 20:07> Appearance: Alert. Oriented X3. No acute distress. Eyes: PERRLA, No Nystagmus ENT: Pharynx normal. Oral Mucosa moist Neck: Normal inspection. Neck supple. CVS: Normal heart rate and rhythm. Pulses normal. Respiratory: No respiratory distress. Equal air entry bilateral, bilateral fine crackles at the bases Abdomen: Soft and nontender. Bowel sounds are present, no mass palpable, no CVA tenderness Skin: Skin warm and dry. Normal skin color. Normal skin turgor. Extremities: No lower extremity edema. No calf tenderness Neuro: Oriented X 3. No motor deficit. <Mitchel Cleaning MD - Last Filed: 04/07/22 20:07> Course Course Course Narrative: RME: Patient presents to the ED for coughing, chills, right sided chest pain, SoB and fatigue for the past 4 days. patient denies pleurisy or legs swelling labs and chest xray ordered <VLAD Vallejo - Last Filed: 04/07/22 20:03> Medications Administered Discontinued Medications Generic Name Dose Route Start Last Admin Trade Name Freq PRN Reason Stop Dose Admin Albuterol Sulfate 2.5 mg/ 5 mg 04/07/22 18:28 04/07/22 18:39 Albuterol Sulfate 2.5 mg INHALE 04/07/22 18:29 5 mg ONCE ONE Administration Albuterol Sulfate 2.5 mg/ 0 mg 04/07/22 18:28 04/07/22 18:39 Ipratropium [place] 0.5 mg INHALE 04/07/22 18:29 1 each ONCE ONE Administration Dexamethasone 10 mg 04/07/22 18:37 04/07/22 18:44 Dexamethasone 2 Mg Tablet PO 04/07/22 18:38 10 mg ONCE ONE Administration <VLAD Vallejo - Last Filed: 04/07/22 20:03> Medications Administered Discontinued Medications Generic Name Dose Route Start Last Admin Trade Name Freq PRN Reason Stop Dose Admin Albuterol Sulfate 2.5 mg/ 5 mg 04/07/22 18:28 04/07/22 18:39 Albuterol Sulfate 2.5 mg INHALE 04/07/22 18:29 5 mg ONCE ONE Administration Albuterol Sulfate 2.5 mg/ 0 mg 04/07/22 18:28 04/07/22 18:39 Ipratropium [place] 0.5 mg INHALE 04/07/22 18:29 1 each ONCE ONE Administration Dexamethasone 10 mg 04/07/22 18:37 04/07/22 18:44 Dexamethasone 2 Mg Tablet PO 04/07/22 18:38 10 mg ONCE ONE Administration <Mitchel Cleaning MD - Last Filed: 04/07/22 20:07> Medical Decision Making Medical Decision Making [facility] Narrative: Patient chronic lung disease with pulmonary fibrosis workup negative for any acute discharge patient on prednisone advised to continue inhaler 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 <Mitchel Cleaning MD - Last Filed: 04/07/22 20:07> Result Diagrams: 04/07/22 16:27 04/07/22 16:27 <VLAD Vallejo - Last Filed: 04/07/22 20:03> Labs: Lab Results 04/07/22 04/07/22 04/07/22 Range/Units 16:27 16:27 16:27 WBC 6.6 (4.8-10.8) X10*3/uL RBC 4.13 L (4.20-5.50) X10*6/uL Hgb 12.9 (12.0-16.0) g/dl Hct 39.6 (37.0-47.0) % MCV 95.9 (80.0-98.0) fL MCH 31.2 (27.0-33.0) pg MCHC 32.6 (31.0-35.0) g/dl RDW 12.3 (11.0-16.0) % Plt Count 262 (160-400) X10*3/uL MPV 10.9 (9.4-12.3) fL Immature Gran % (Auto) 0.3 (0.0-0.4) % Neut % (Auto) 59.4 (45-73) % Lymph % (Auto) 32.8 (20-40) % Clay % (Auto) 5.7 (2-11) % Eos % (Auto) 1.2 (0-4) % Baso % (Auto) 0.6 (0-2) % Lymph # (Auto) 2.2 (1.2-4.9) X10*3/uL Clay # (Auto) 0.4 (0.1-1.2) X10*3/uL Eos # (Auto) 0.1 (0.0-0.4) X10*3/uL Baso # (Auto) 0.0 (0.0-0.2) X10*3/uL Abs Immat Gran (auto) 0.02 (0.00-0.03) X10*3/uL Absolute Neuts (auto) 3.9 (2.0-8.3) x10*3/uL Absolute Nucleated RBC 0.000 (0.0-0.012) X10*3/uL Nucleated RBC % (auto) 0.0 (0.0-0.2) /100WBC PT 11.7 (10.0-13.1) SEC INR 1.0 (0.9-1.1) APTT 28.6 (26.0-36.4) SEC Sodium 141 (135-145) mmol/L Potassium 4.0 (3.3-5.1) mmol/L Chloride 104 (96-108) mmol/L Carbon Dioxide 26 (22-29) mmol/L Anion Gap 15 (12-20) BUN 13 (9-16) mg/dL Creatinine 0.75 (0.5-1.4) mg/dL Estim Creat Clear Calc 60.9 Estimated GFR > 60 Random Glucose 242 H (60-115) mg/dL Calcium 9.1 (8.4-10.2) mg/dL Total Bilirubin 0.4 (0.0-1.0) mg/dL AST 15 (5-31) U/L ALT 15 (0-31) U/L Alkaline Phosphatase 91 (39-117) U/L Troponin I High Sens (<3.5-17.0) ng/L B-Natriuretic Peptide (<100) pg/mL Total Protein 7.3 (6.5-8.0) g/dL Albumin 3.9 (3.5-5.0) g/dL Influenza Type A (PCR) (Negative) Influenza Type B (PCR) (Negative) RSV RNA Qual (PCR) (Negative) SARS-CoV-2 RNA (RT-PCR) (Negative) 04/07/22 04/07/22 04/07/22 Range/Units 16:27 16:27 16:27 WBC (4.8-10.8) X10*3/uL RBC (4.20-5.50) X10*6/uL Hgb (12.0-16.0) g/dl Hct (37.0-47.0) % MCV (80.0-98.0) fL MCH (27.0-33.0) pg MCHC (31.0-35.0) g/dl RDW (11.0-16.0) % Plt Count (160-400) X10*3/uL MPV (9.4-12.3) fL Immature Gran % (Auto) (0.0-0.4) % Neut % (Auto) (45-73) % Lymph % (Auto) (20-40) % Clay % (Auto) (2-11) % Eos % (Auto) (0-4) % Baso % (Auto) (0-2) % Lymph # (Auto) (1.2-4.9) X10*3/uL Clay # (Auto) (0.1-1.2) X10*3/uL Eos # (Auto) (0.0-0.4) X10*3/uL Baso # (Auto) (0.0-0.2) X10*3/uL Abs Immat Gran (auto) (0.00-0.03) X10*3/uL Absolute Neuts (auto) (2.0-8.3) x10*3/uL Absolute Nucleated RBC (0.0-0.012) X10*3/uL Nucleated RBC % (auto) (0.0-0.2) /100WBC PT (10.0-13.1) SEC INR (0.9-1.1) APTT (26.0-36.4) SEC Sodium (135-145) mmol/L Potassium (3.3-5.1) mmol/L Chloride (96-108) mmol/L Carbon Dioxide (22-29) mmol/L Anion Gap (12-20) BUN (9-16) mg/dL Creatinine (0.5-1.4) mg/dL Estim Creat Clear Calc Estimated GFR Random Glucose (60-115) mg/dL Calcium (8.4-10.2) mg/dL Total Bilirubin (0.0-1.0) mg/dL AST (5-31) U/L ALT (0-31) U/L Alkaline Phosphatase (39-117) U/L Troponin I High Sens < 3.5 (<3.5-17.0) ng/L B-Natriuretic Peptide 14 (<100) pg/mL Total Protein (6.5-8.0) g/dL Albumin (3.5-5.0) g/dL Influenza Type A (PCR) NEGATIVE (Negative) Influenza Type B (PCR) NEGATIVE (Negative) RSV RNA Qual (PCR) NEGATIVE (Negative) SARS-CoV-2 RNA (RT-PCR) NEGATIVE (Negative) <VLAD Vallejo - Last Filed: 04/07/22 20:03> Lab Results 04/07/22 04/07/22 04/07/22 Range/Units 16:27 16:27 16:27 WBC 6.6 (4.8-10.8) X10*3/uL RBC 4.13 L (4.20-5.50) X10*6/uL Hgb 12.9 (12.0-16.0) g/dl Hct 39.6 (37.0-47.0) % MCV 95.9 (80.0-98.0) fL MCH 31.2 (27.0-33.0) pg MCHC 32.6 (31.0-35.0) g/dl RDW 12.3 (11.0-16.0) % Plt Count 262 (160-400) X10*3/uL MPV 10.9 (9.4-12.3) fL Immature Gran % (Auto) 0.3 (0.0-0.4) % Neut % (Auto) 59.4 (45-73) % Lymph % (Auto) 32.8 (20-40) % Clay % (Auto) 5.7 (2-11) % Eos % (Auto) 1.2 (0-4) % Baso % (Auto) 0.6 (0-2) % Lymph # (Auto) 2.2 (1.2-4.9) X10*3/uL Clay # (Auto) 0.4 (0.1-1.2) X10*3/uL Eos # (Auto) 0.1 (0.0-0.4) X10*3/uL Baso # (Auto) 0.0 (0.0-0.2) X10*3/uL Abs Immat Gran (auto) 0.02 (0.00-0.03) X10*3/uL Absolute Neuts (auto) 3.9 (2.0-8.3) x10*3/uL Absolute Nucleated RBC 0.000 (0.0-0.012) X10*3/uL Nucleated RBC % (auto) 0.0 (0.0-0.2) /100WBC PT 11.7 (10.0-13.1) SEC INR 1.0 (0.9-1.1) APTT 28.6 (26.0-36.4) SEC Sodium 141 (135-145) mmol/L Potassium 4.0 (3.3-5.1) mmol/L Chloride 104 (96-108) mmol/L Carbon Dioxide 26 (22-29) mmol/L Anion Gap 15 (12-20) BUN 13 (9-16) mg/dL Creatinine 0.75 (0.5-1.4) mg/dL Estim Creat Clear Calc 60.9 Estimated GFR > 60 Random Glucose 242 H (60-115) mg/dL Calcium 9.1 (8.4-10.2) mg/dL Total Bilirubin 0.4 (0.0-1.0) mg/dL AST 15 (5-31) U/L ALT 15 (0-31) U/L Alkaline Phosphatase 91 (39-117) U/L Troponin I High Sens (<3.5-17.0) ng/L B-Natriuretic Peptide (<100) pg/mL Total Protein 7.3 (6.5-8.0) g/dL Albumin 3.9 (3.5-5.0) g/dL Influenza Type A (PCR) (Negative) Influenza Type B (PCR) (Negative) RSV RNA Qual (PCR) (Negative) SARS-CoV-2 RNA (RT-PCR) (Negative) 04/07/22 04/07/22 04/07/22 Range/Units 16:27 16:27 16:27 WBC (4.8-10.8) X10*3/uL RBC (4.20-5.50) X10*6/uL Hgb (12.0-16.0) g/dl Hct (37.0-47.0) % MCV (80.0-98.0) fL MCH (27.0-33.0) pg MCHC (31.0-35.0) g/dl RDW (11.0-16.0) % Plt Count (160-400) X10*3/uL MPV (9.4-12.3) fL Immature Gran % (Auto) (0.0-0.4) % Neut % (Auto) (45-73) % Lymph % (Auto) (20-40) % Clay % (Auto) (2-11) % Eos % (Auto) (0-4) % Baso % (Auto) (0-2) % Lymph # (Auto) (1.2-4.9) X10*3/uL Clay # (Auto) (0.1-1.2) X10*3/uL Eos # (Auto) (0.0-0.4) X10*3/uL Baso # (Auto) (0.0-0.2) X10*3/uL Abs Immat Gran (auto) (0.00-0.03) X10*3/uL Absolute Neuts (auto) (2.0-8.3) x10*3/uL Absolute Nucleated RBC (0.0-0.012) X10*3/uL Nucleated RBC % (auto) (0.0-0.2) /100WBC PT (10.0-13.1) SEC INR (0.9-1.1) APTT (26.0-36.4) SEC Sodium (135-145) mmol/L Potassium (3.3-5.1) mmol/L Chloride (96-108) mmol/L Carbon Dioxide (22-29) mmol/L Anion Gap (12-20) BUN (9-16) mg/dL Creatinine (0.5-1.4) mg/dL Estim Creat Clear Calc Estimated GFR Random Glucose (60-115) mg/dL Calcium (8.4-10.2) mg/dL Total Bilirubin (0.0-1.0) mg/dL AST (5-31) U/L ALT (0-31) U/L Alkaline Phosphatase (39-117) U/L Troponin I High Sens < 3.5 (<3.5-17.0) ng/L B-Natriuretic Peptide 14 (<100) pg/mL Total Protein (6.5-8.0) g/dL Albumin (3.5-5.0) g/dL Influenza Type A (PCR) NEGATIVE (Negative) Influenza Type B (PCR) NEGATIVE (Negative) RSV RNA Qual (PCR) NEGATIVE (Negative) SARS-CoV-2 RNA (RT-PCR) NEGATIVE (Negative) <Mitchel Cleaning MD - Last Filed: 04/07/22 20:07> Independent Interpretation I performed an independent interpretation of an: EKG <Mitchel Cleaning MD - Last Filed: 04/07/22 20:07> Interpretation: Sinus tachycardia with heart rate 102 beats per minute occasional unifocal PVC no acute ST-T changes no acute ischemia <Mitchel Cleaning MD - Last Filed: 04/07/22 20:07> Discharge Plan Discharge Clinical Impression: Chronic lung disease <VLAD Vallejo - Last Filed: 04/07/22 20:03> Patient Disposition: Home, Self-Care <VLAD Vallejo - Last Filed: 04/07/22 20:03> Instructions: Pulmonary Fibrosis (ED) <VLAD Vallejo - Last Filed: 04/07/22 20:03> Additional Instructions: Use inhaler as advised Cough drops as prescribed Prednisone as prescribed Follow with lung specialist <VLAD Vallejo - Last Filed: 04/07/22 20:03> Prescriptions: No Action simethicone 180 mg capsule 180 mg PO BID Qty: 60 3RF oxybutynin chloride 10 mg tablet extended release 24hr 10 mg PO DAILY 90 Days Qty: 90 0RF trazodone 50 mg tablet 100 mg PO BEDTIME Qty: 60 11RF Creon 24,000-76,000 -120,000 unit capsule,delayed release(DR/EC) 1 cap PO QID 30 Days Qty: 120 1RF Rx Instructions: administer with meals and/or snacks omeprazole 20 mg capsule,delayed release(DR/EC) 20 mg PO BID Qty: 60 1RF oxycodone-acetaminophen 5-325 mg tablet 1 tab PO TID PRN (Reason: Pain) flu vacc [id number](65yr up)-PF 240 mcg/0.7 mL syringe IM metoprolol succinate 200 mg tablet extended release 24 hr 200 mg PO DAILY losartan 100 mg tablet 100 mg PO DAILY sitagliptin phosphate 50 mg tablet 50 mg PO QAM cholecalciferol (vitamin D3) 50 mcg (2,000 unit) tablet 50 mcg PO DAILY furosemide 20 mg tablet 20 mg PO DAILY cyanocobalamin (vitamin B-12) 1,000 mcg tablet 1,000 mcg PO DAILY atorvastatin 40 mg tablet 40 mg PO BEDTIME aspirin 81 mg tablet,delayed release (DR/EC) 81 mg PO DAILY amlodipine 10 mg tablet 10 mg PO DAILY melatonin 5 mg tablet 10 mg PO BEDTIME albuterol sulfate 90 mcg/actuation HFA aerosol inhaler 2 puff inhalation Q4-6H PRN (Reason: Wheezing) metformin 500 mg tablet extended release 24 hr 1,000 mg PO BID (DME) blood sugar diagnostic Strip See Rx Instructions Not Applicable BID Qty: 10 Rx Instructions: As directed (DME) lancets 33 gauge misc See Rx Instructions .ROUTE .MEDSUPPLY Qty: 100 Rx Instructions: As directed alcohol swabs [Alcohol Prep Pads] Pads, Medicated 0 pad topical budesonide-formoterol [Symbicort] 160-4.5 mcg/actuation HFA aerosol inhaler 2 puff inhalation BID 30 Days Qty: 10.2 11RF <VLAD Vallejo - Last Filed: 04/07/22 20:03>
[2022-04-07 16:34] LABS: MANUAL DIFF FLAG NO
[2022-04-07 16:37] LABS: Basophils Percent Auto 0.6 % (0-2); Eosinophils Absolute Auto 0.1 X10*3/uL (0.0-0.4); Eosinophils Percent Auto 1.2 % (0-4); Hematocrit 39.6 % (37.0-47.0); Hemoglobin 12.9 g/dl (12.0-16.0); Imm Gran Abs Auto 0.02 X10*3/uL (0.00-0.03); Imm Gran Pct Auto 0.3 % (0.0-0.4); Lymphocytes Absolute Auto 2.2 X10*3/uL (1.2-4.9); Lymphocytes Percent Auto 32.8 % (20-40); Mean Corpuscular HGB Conc 32.6 g/dl (31.0-35.0); Mean Corpuscular Hemoglobin 31.2 pg (27.0-33.0); Mean Corpuscular Volume 95.9 fL (80.0-98.0); Mean Platelet Volume 10.9 fL (9.4-12.3); Monocytes Absolute Auto 0.4 X10*3/uL (0.1-1.2); Monocytes Percent Auto 5.7 % (2-11); Neutrophils Absolute Auto 3.9 x10*3/uL (2.0-8.3); Neutrophils Percent Auto 59.4 % (45-73); Platelet Count 262 X10*3/uL (160-400); Red Blood Count 4.13 X10*6/uL (4.20-5.50); Red Cell Distribution Width 12.3 % (11.0-16.0); White Blood Count 6.6 X10*3/uL (4.8-10.8)
[2022-04-07 16:43] LABS: Prothrombin Time 11.7 SEC (10.0-13.1)
[2022-04-07 16:46] LABS: Partial Thromboplastin Time 28.6 SEC (26.0-36.4)
[2022-04-07 16:56] LABS: Alanine Aminotransferase 15 U/L (0-31); Albumin Level 3.9 g/dL (3.5-5.0); Alkaline Phosphatase 91 U/L (39-117); Anion Gap 15 (12-20); Aspartate Amino Transferase 15 U/L (5-31); Bilirubin Total 0.4 mg/dL (0.0-1.0); Blood Urea Nitrogen 13 mg/dL (9-16); Calcium 9.1 mg/dL (8.4-10.2); Carbon Dioxide 26 mmol/L (22-29); Chloride 104 mmol/L (96-108); Creatinine Clr Calc Pharmacy 60.9; Estimated Glomerular Filt Rate > 60; Glucose Random 242 mg/dL (60-115); Sodium 141 mmol/L (135-145); Total Protein 7.3 g/dL (6.5-8.0)
[2022-04-07 17:01] LABS: B Type Natriuretic Peptide 14 pg/mL (<100)
[2022-04-07 17:06] LABS: Troponin-I High Sensitivity < 3.5 ng/L (<3.5-17.0)
[2022-04-07 17:14] LABS: Influenza A PCR NEGATIVE (Negative); Influenza B PCR NEGATIVE (Negative); Resp Syncy Virus RNA Qual PCR NEGATIVE (Negative); SARS COV2 PCR INHOUSE NEGATIVE (Negative)
[2022-04-07 17:52] VITALS: BP 176/95; PULSE 108; RESP 20; TEMP 36.8; O2SAT 97
--- NOTE | 2022-04-07 18:02 | PC.NURSE ---
patient a&ox3, vss, pt c/o mid-sternal chest pain with coughing only, lungs are diminished in the upper, crackles bilateral bases, labs drawn, ekg performed, swab obtained, will continue to monitor.
[2022-04-07] MEDS: Albuterol Sulfate 2.5 MG, Albuterol Sulfate (0.083%) 2.5 MG 5 MG INHALE (18:39)
[2022-04-07 18:40] VITALS: PULSE 94; RESP 18; O2SAT 97
[2022-04-07] MEDS: dexAMETHasone 2 MG TABLET 10 MG PO (18:44)
--- NOTE | 2022-04-07 18:44 | PC.NURSE ---
pt medicated per order, rt at bedside doing updraft
[2022-04-07 20:00] VITALS: BP 107/70; PULSE 120; RESP 16; TEMP 36.9; O2SAT 98
== END 2022-04-07 20:55 | disposition home or self-care (01) ==
PROVIDERS: Physician Assistant; Emergency Provider Internal Medicine; PCP General Practice
DX: J98.4 Other disorders of lung (principal); R06.02 Shortness of breath; I10 Essential (primary) hypertension; Z20.828 Contact with and (suspected) exposure to other viral communicable diseases; Z20.822 Contact with and (suspected) exposure to COVID-19; Z79.899 Other long term (current) drug therapy
CPT/HCPCS: 0241U; 36415; 71046; 80053; 83880; 84484; 85025; 85610; 85730; 93005; 94640; 94664; 96374; 99285; J8540

== ENCOUNTER → 2022-04-16 11:49 | Outpatient (BNVA) | payer OTHER, SELFPAY | PROVIDERS: PCP General Practice; Referring Provider General Practice; Visit Provider Nurse Practitioner | DX: K21.9 Gastro-esophageal reflux disease without esophagitis (principal); R14.0 Abdominal distension (gaseous); Z79.899 Other long term (current) drug therapy | CPT/HCPCS: 99212 ==

== ENCOUNTER → 2022-04-29 15:32 | Outpatient (BNVA) | payer OTHER, SELFPAY | PROVIDERS: PCP General Practice; Visit Provider Hospitalist | DX: I27.21 Secondary pulmonary arterial hypertension (principal); J84.9 Interstitial pulmonary disease, unspecified; J20.9 Acute bronchitis, unspecified | CPT/HCPCS: 99212 ==

== ENCOUNTER 2022-05-09 14:14 | Outpatient (REF) | payer OTHER, SELFPAY ==
[2022-05-09 14:31] LABS: MANUAL DIFF FLAG NO
[2022-05-09 14:38] LABS: Basophils Absolute Auto 0.1 X10*3/uL (0.0-0.2); Basophils Percent Auto 0.5 % (0-2); Eosinophils Absolute Auto 0.1 X10*3/uL (0.0-0.4); Eosinophils Percent Auto 0.8 % (0-4); Hematocrit 40.7 % (37.0-47.0); Hemoglobin 13.3 g/dl (12.0-16.0); Imm Gran Abs Auto 0.03 X10*3/uL (0.00-0.03); Imm Gran Pct Auto 0.3 % (0.0-0.4); Lymphocytes Percent Auto 32.8 % (20-40); Mean Corpuscular HGB Conc 32.7 g/dl (31.0-35.0); Mean Corpuscular Hemoglobin 31.7 pg (27.0-33.0); Mean Corpuscular Volume 97.1 fL (80.0-98.0); Monocytes Absolute Auto 0.5 X10*3/uL (0.1-1.2); Neutrophils Absolute Auto 5.6 x10*3/uL (2.0-8.3); Neutrophils Percent Auto 60.6 % (45-73); Platelet Count 303 X10*3/uL (160-400); Red Blood Count 4.19 X10*6/uL (4.20-5.50); Red Cell Distribution Width 12.7 % (11.0-16.0); White Blood Count 9.3 X10*3/uL (4.8-10.8)
[2022-05-09 18:31] LABS: Erythrocyte Sedimentation Rate 34 MM/HR (0-20)
[2022-05-11 02:43] LABS: Immunoglobulin E 67 kU/L (<OR=114)
[2022-05-12 14:53] LABS: Anti Nuclear Antibody Screen NEGATIVE (NEGATIVE)
[2022-05-13 14:03] LABS: Antibody to SS-A Antigen <1.0 NEG AI (<1.0 NEG); Antibody to SS-B Antigen <1.0 NEG AI (<1.0 NEG); Myeloperoxidase Antibody <1.0 AI; Proteinase 3 PR3 Antibodies <1.0 AI; Scleroderma 70 Antibody <1.0 NEG AI (<1.0 NEG)
[2022-05-14 06:48] LABS: Angiotensin Converting Enzyme 24.7 U/L (9-67)
[2022-05-14 13:09] LABS: Cyclic Citrullinated Peptide <16 UNITS
[2022-05-17 15:23] LABS: Asperg fumigatus Precip Abs NEGATIVE (NEGATIVE); Micropoly faeni Abs NEGATIVE (NEGATIVE); Pigeon serum Abs NEGATIVE (NEGATIVE); Saccharo pora viridis Abs NEGATIVE (NEGATIVE); Thermo candidus Abs NEGATIVE (NEGATIVE); Thermoa vulgaris #1 NEGATIVE (NEGATIVE)
== END 2022-05-09 14:15 | disposition home or self-care (01) ==
LOC: HO.LAB 14:14
PROVIDERS: PCP General Practice; Visit Provider Hospitalist
DX: J84.9 Interstitial pulmonary disease, unspecified (principal); R91.8 Other nonspecific abnormal finding of lung field
CPT/HCPCS: 36415; 82164; 82785; 85025; 85652; 86021; 86038; 86039; 86200; 86235; 86331; 86606; 86609

== ENCOUNTER → 2022-05-20 13:25 | Outpatient (BNVA) | payer OTHER, SELFPAY | PROVIDERS: PCP General Practice; Visit Provider Hospitalist | DX: I27.21 Secondary pulmonary arterial hypertension (principal); J84.9 Interstitial pulmonary disease, unspecified; J84.10 Pulmonary fibrosis, unspecified; J44.9 Chronic obstructive pulmonary disease, unspecified; Z79.52 Long term (current) use of systemic steroids | CPT/HCPCS: 99212 ==

== ENCOUNTER → 2022-06-18 12:55 | Outpatient (BNVA) | payer OTHER, SELFPAY | PROVIDERS: PCP General Practice; Visit Provider Hospitalist | DX: I27.21 Secondary pulmonary arterial hypertension (principal); J44.9 Chronic obstructive pulmonary disease, unspecified; J84.9 Interstitial pulmonary disease, unspecified; J98.4 Other disorders of lung | CPT/HCPCS: 99212 ==

== ENCOUNTER 2022-07-16 08:39 | Outpatient (REF) | payer OTHER, SELFPAY ==
--- NOTE | ~2022-07-16 | CT_ITS ---
EXAMINATION: CT CHEST WITHOUT CONTRAST CLINICAL INFORMATION: Interstitial pulmonary disease. COMPARISON: CT chest 01/04/2022. TECHNIQUE: Multidetector volumetric CT imaging of the chest was done. Axial MIP volume rendering provided. Sagittal and coronal reformatted images were obtained. This CT examination was performed using dose optimization techniques as appropriate, variously including the following: *Automated exposure control *Adjustment of mA and/or kV according to patient size (this includes techniques or standardized protocols for targeted exams where dose is matched to indication/reason for exam; i.e. extremities or head) *Use of iterative reconstruction technique DLP: 154 mGy-cm FINDINGS: GAMES DEALER: Well-expanded lungs. LUNGS: There is diffuse ground-glass attenuation and mild interstitial thickening throughout both lungs. Patchy ground-glass like consolidation is seen in the right middle lobe axial image 1/4. Mild traction bronchiectasis right lower lobe without bronchial debris or peribronchial wall thickening. Mild subpleural ground-glass attenuation is seen in the right middle lobe and posterior basal dependent segments of lower lobes, similar to previous study There is no honeycombing, pulmonary nodule, mass or calcification seen. The lungs are hypoexpanded. MEDIASTINUM: Heart size and the great vessels are normal caliber. There is no pericardial effusion. There is calcification of mitral valve. No abnormal-sized mediastinal or hilar lymph nodes. The central trachea and the bronchi are widely patent. The thyroid lobes are symmetrical. CORONARY ARTERY CALCIFICATION: Mild coronary artery calcifications are present. PLEURA: There is no pleural effusion. No pleural mass or thickening. AXILLA: No abnormal axillary lymph node seen. UPPER ABDOMEN: Visualized liver, spleen, pancreas and bilateral adrenal glands are unremarkable. OSSEOUS STRUCTURES: No aggressive lytic or sclerotic process seen. CT/CT chest wo IV con IMPRESSION: Hypoexpanded lungs with increased interstitial peripheral markings with ground-glass attenuation and minimal bronchiectasis right lower lobe. These above findings are similar to previous study. 01/04/2022. No abnormal mediastinal or hilar lymphadenopathy. Fleischner guidelines were followed.
== END 2022-07-16 08:40 | disposition home or self-care (01) ==
LOC: HO.CT 08:39
PROVIDERS: PCP General Practice; Visit Provider Hospitalist
DX: J84.9 Interstitial pulmonary disease, unspecified (principal)
CPT/HCPCS: 71250

== ENCOUNTER → 2022-07-29 14:09 | Outpatient (BNVA) | payer OTHER, SELFPAY | PROVIDERS: PCP General Practice; Visit Provider Hospitalist | DX: J44.9 Chronic obstructive pulmonary disease, unspecified (principal); J84.9 Interstitial pulmonary disease, unspecified; J98.4 Other disorders of lung; I27.21 Secondary pulmonary arterial hypertension; Z79.52 Long term (current) use of systemic steroids; Z79.899 Other long term (current) drug therapy | CPT/HCPCS: 99212 ==

== ENCOUNTER 2022-10-04 11:44 | Outpatient (REF) | payer OTHER, SELFPAY ==
--- NOTE | ~2022-10-04 | MM_ITS ---
EXAMINATION: MM SCREENING DIGITAL BREAST TOMOSYNTHESIS, BILATERAL CLINICAL INFORMATION: Screening. Asymptomatic. The lifetime risk of breast cancer based on the Tyrer-Cuzick Model is 5.0%. COMPARISON: Mammography: This study is compared with prior exams dating back to 2017. TECHNIQUE: Digital breast tomosynthesis is performed in both the craniocaudal and mediolateral oblique views along with computer-aided detection (CAD). Synthesized 2D images are generated from the tomosynthesis. FINDINGS: There are scattered areas of fibroglandular density (ACR BI-RADS breast composition Category b). There are no significant masses, abnormal calcifications, or other abnormalities. MM/MM tomosynthesis screening BI IMPRESSION: No mammographic evidence of malignancy. ASSESSMENT: BI-RADS BI-RADS 1 - Negative RECOMMENDATION: Routine annual mammography screening. 1 year F/U This examination should not preclude the clinical evaluation of a suspicious palpable abnormality. This patient's information was entered into a reminder system with a target due date for their next mammogram.
== END 2022-10-04 11:45 | disposition home or self-care (01) ==
LOC: HO.MAMMO 11:44
PROVIDERS: PCP General Practice; Visit Provider General Practice
DX: Z12.31 Encounter for screening mammogram for malignant neoplasm of breast (principal)
CPT/HCPCS: 77063; 77067

== ENCOUNTER → 2022-10-04 12:00 | Outpatient (BNV) | payer OTHER, SELFPAY | PROVIDERS: PCP General Practice; Visit Provider Radiology Diagnostic Radiology | DX: Z12.31 Encounter for screening mammogram for malignant neoplasm of breast (principal) | CPT/HCPCS: 77063; 77067 ==

== ENCOUNTER 2022-10-08 11:38 | Outpatient (AMB) | payer OTHER, SELFPAY ==
--- NOTE | 2022-10-08 11:40 | A.OFFVIS_ITS ---
Intake Vital Signs 10/08/22 11:42 Height 5 ft 1 in Weight 175 lb 0.752 oz BMI 33.1 BP 151/68 H Blood Pressure Location Lt brachial Position Sitting Pulse 68 Intake Visit Reasons: 6 month follow up Intake Note: Patient presents to in office visit today in 6 months follow up of GERD. Patient cc: Patient reports she is not taking Creon any longer because she feels is too much. She reports doing better from GERD. Denies any other GI issues. Secondary Connector Armature Required: Yes Accompanied by: Self / Same As Patient Allergies morphine [MORPHINE] Allergy (Mild, Verified 10/29/22 14:30) NAUSEA, VOMITING, DIZZINESS, HOT FLASHES lactose Allergy (Mild, Uncoded 10/29/22 14:30) GI Upset HPI 6 month follow up HPI Details Assessment & Plan (1) GERD (gastroesophageal reflux disease): ?Code(s): K21.9 - Gastro-esophageal reflux disease without esophagitis ?Plan: Indian #jennifer She has been ill with pneumonia!SHe is being treated with a cephalosporin and benzazonate and just completed a course of prednisone. Her GI sx seem to be stable however. She continues on omeprazole 20mg bid, simethicone and creon. ROV 6 mos (2) Abdominal bloating: ?Code(s): R14.0 - Abdominal distension (gaseous) ? ? ? Medications: Refilled simethicone 180 mg PO BID 60 c aps 3RF R14.0 - Abdominal distension (gaseou s) ? omeprazole 20 mg PO BID 60 ca ps 6RF K21.9 - Gastro-eso phageal reflux dis ease without esoph agitis ? wwnjfn-ovlipcvo-ax ylase 24,000-76,00 0 -120,000 unit (C reon) ?? administe r with meals and/o r snacks 1 cap PO QID 120 c aps 1RF 30 days K58.9 - Irritable bowel syndrome wit hout diarrhea ? TODAY'S VISIT Indian #Xiao Live She continues to do well, and has recovered well from her pneumonia. She continues on omeprazole 20mg bid, simethicone and creon. ROV 6 mos. [facility] Medical History (Updated 07/30/22 @ 09:07 by Van Hill MD) Abnormal chest x-ray Bibasilar crackles Chronic restrictive lung disease COPD (chronic obstructive pulmonary disease) Diabetes Dyspnea History of postoperative nausea and vomiting ILD (interstitial lung disease) Insomnia Memory loss OAB (overactive bladder) JAREK (obstructive sleep apnea) Pulmonary arterial hypertension Renal cyst Surgical History H/O esophagogastroduodenoscopy History of colonoscopy History of hernia repair Family History Father Hx of diabetes insipidus Mother Hx of diabetes insipidus Social History Household Members: Family Alcohol intake: never Patient Tobacco Use Status: Never used Tobacco Years Smoked: 1yr Second Hand Smoke Exposure: No Review of Systems Const Denies fatigue, Denies fever(s), Denies night sweats, Denies poor appetite and Denies weight loss Eyes Details: glasses Reports requires corrective lenses ENT Reports Normal hearing present, Denies dental pain, Denies dysphagia, Denies hearing loss, Denies mouth pain, Denies odynophagia, Denies throat swelling, Denies tongue swelling and Reports other (Dentition adequate) Card Reports no additional complaints Resp Reports no additional complaints GI Denies abdominal pain, Denies melena, Reports bloating, Denies hematochezia, Denies constipation, Denies GI cramping, Denies dysphagia, Denies excessive flatus, Denies early satiety, Reports heartburn, Denies diarrhea, Denies nausea, Denies odynophagia, Denies vomiting and Denies hematemesis Skin/Breast Denies pruritus, Denies lesions, Denies rash and Denies jaundice Neuro Reports Normal hearing present and Denies Abnormal speech present Endo Denies fatigue Aller/Immun Denies throat swelling and Denies tongue swelling Physical Exam Vital Signs: Last Vital Signs Pulse 68 10/08/22 11:42 BP 151/68 H 10/08/22 11:42 BMI result Body Mass Index 33.1 Const General: cooperative, no acute distress, well developed and well groomed Nutritional Appearance: well nourished and obese Orientation/consciousness: oriented to person, oriented to place and oriented to time Limitations: language barrier HEENT Head: Yes normocephalic and Yes atraumatic Eyes General: appearance normal, both eyes and all related structures Pupils: Equal, round and reactive pupils present Neck Neck: Yes normal visual inspection and Yes no lymphadenopathy Thyroid: Thyroid normal Resp Effort & Inspection: normal respiratory effort and able to speak in complete sentences Auscultation: clear to auscultation bilaterally Cardio Rate: regular rate Rhythm: regular rhythm Heart sounds: Normal, physiologic split S2 sound present Peripheral pulses: radial pulses present and posterior tibial pulses present GI Inspection: No distended, No Abdominal panniculus present and Yes obesity Palpation (GI): Soft to palpation, nontender, no guarding, not rigid and No hepatosplenomegaly present Percussion: Yes normal to percussion Auscultation: normal bowel sounds Rectal Exam - Female: deferred Skin General skin exam: no rashes or lesions noted, turgor normal, skin not dry, no jaundice, No spider nevi and no striae Rashes: no rashes Nails: normal Neuro General: oriented to person, oriented to place and oriented to time Cranial nerves: Yes Equal, round and reactive pupils present and Yes Normal hearing present Speech: No Abnormal speech present Extrem General: Yes normal to inspection, No clubbing, No cyanosis and No edema Psych Appearance: grossly normal and well kempt Mental Status: mental status grossly normal Speech and movement: Normal speech and movement present Affect: normal affect Attitude: cooperative Thought process: Normal thought process present and not confabulating Thought content: Normal thought content present Insight: Limited insight present (Psych) Judgement: Limited judgement present (Psych) Assessment & Plan Assessment & Plan (1) GERD (gastroesophageal reflux disease): Code(s): K21.9 - Gastro-esophageal reflux disease without esophagitis Plan: Indian #Xiao Live She continues to do well, and has recovered well from her pneumonia. She continues on omeprazole 20mg bid, simethicone and creon. ROV 6 mos. (2) Abdominal bloating: Code(s): R14.0 - Abdominal distension (gaseous) Medications: Refilled rxvxdc-zqduslly-mfpplpc 24,000-76,000 -120,000 unit (Creon) administer with meals and/or snacks 1 cap PO QID 120 caps 6RF 30 days K58.9 - Irritable bowel syndrome without diarrhea omeprazole 20 mg PO BID 60 caps 6RF K21.9 - Gastro-esophageal reflux disease without esophagitis simethicone 180 mg PO BID 60 caps 6RF R14.0 - Abdominal distension (gaseous) Coding Level of Care Code Est Pt Level 3 (70431) Diagnoses GERD (gastroesophageal reflux disease) K21.9 Abdominal bloating R14.0
[2022-10-08 11:42] VITALS: BP 151/68; PULSE 68; BMI 33.1
== END 2022-10-08 13:48 | disposition home or self-care (01) ==
PROVIDERS: Visit Provider Nurse Practitioner
DX: K21.9 Gastro-esophageal reflux disease without esophagitis (principal); R14.0 Abdominal distension (gaseous)
CPT/HCPCS: 99213

== ENCOUNTER → 2022-10-08 11:38 | Outpatient (BNVA) | payer OTHER, SELFPAY | PROVIDERS: Visit Provider Nurse Practitioner | DX: K21.9 Gastro-esophageal reflux disease without esophagitis (principal); R14.0 Abdominal distension (gaseous) | CPT/HCPCS: 99212 ==

== ENCOUNTER 2022-10-29 14:11 | Outpatient (AMB) | payer OTHER, SELFPAY ==
--- NOTE | 2022-10-29 14:28 | MHC.OFFVIS ---
Intake Vital Signs 10/29/22 14:29 Height 5 ft Weight 176 lb BMI 34.4 Pulse 62 Pulse Source Pulse Oximeter Pulse Oximetry (%) 95 Oxygen Delivery Method Room Air Intake Visit Reasons: pulmonary hypertension Screen Making Supervisor Required: No Allergies morphine [MORPHINE] Allergy (Mild, Verified 10/29/22 14:30) NAUSEA, VOMITING, DIZZINESS, HOT FLASHES lactose Allergy (Mild, Uncoded 10/29/22 14:30) GI Upset HPI HPI Comments History of Present Illness Details The patient is a 72-year-old woman with known pulmonary hypertension. She also has obstructive airway disease and has been on short-acting beta agonist. She has been having increasing shortness of breath. And she has been using her rescue inhaler with partial response. At this point will start her on a maintenance inhaler. In addition to that in view of her pulmonary hypertension will go ahead and request an overnight oximetry to assess her for nocturnal hypoxia. She does have any evidence of any nocturnal hypoxia will be imperative to start her on oxygen supplementation to treat her underlying pulmonary hypertension. 12/24/2021 the patient is here for a pulmonary follow-up visit. 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 She also did not have her blood work done. We did arrange for her to have an overnight oximetry but not clear, but she did not have it done. At this point the patient has been having issues with memory lapse. She states that she woke up this morning known she had an appointment then she went to the bank and she forget totally about the appointment. Explained to her that untreated sleep apnea can result in issues with memory loss. We did review her sleep study from 2019 demonstrating severe sleep apnea with an AHI of 27 events per hour. She also has significant desaturations. Therefore I did explain to her the importance of going back on PAP therapy. I will request an in-lab study in view of her hypoxia and significant daytime drowsiness. Her Arthur score is elevated 12/24. The patient also has cardiovascular risk factors including pulmonary hypertension in addition to that she did have her chest x-ray demonstrating coarse interstitial markings suggesting pulmonary fibrosis. Her examination also consistent with bilateral crackles which is concerning for pulmonary fibrosis. Will go ahead and request a CT scan at this time. The patient also on a PFTs. We did go over the Symbicort inhaler with her enough office. I also gave her a spacer. She was able to use admission mouth 2 is she feels more comfortable using it now will start using it. She does have diabetes starting her on prednisone will be very difficult. Will see how she response to the Symbicort and if she has any issues she always knows to call the office. At the end of the office visit we did go for brief Stroll and her oxygen maintain between 93-94% with activity. Her heart rate did increase to about 115-120. The patient does not qualify for oxygen at this time. However, if she has further progression of her underlying interstitial lung disease then this may become more likely. 02/25/2022 the patient is here for pulmonary follow-up visit. The patient continues to complaint of cough and shortness of breath. Gcmh-un-ulflbnif severity. We did review her CT scan of the chest demonstrating reticular changes primarily at the periphery and also at the bases. this consistent with pulmonary fibrosis and interstitial lung disease. Will go ahead and request blood work assessing for connective tissue conditions and inflammatory conditions that can result in this picture. Ultimately, we have to make sure followed closely to make sure it is not progressive in nature. If it is progressive then UIP pattern needs to be considered. Pulmonary function studies also suggestive of a moderate restriction consistent with significant restrictive lung disease secondary to the pulmonary fibrosis. At this point will go ahead and await her sleep study. She continues to have daytime drowsiness and also has an elevated Arthur score of 11/24. The patient also has underlying pulmonary hypertension. Therefore she undergo blood work and also undergo her sleep study and will follow-up in the next couple months. 04/29/2022 the patient is here for a pulmonary follow-up visit. Recently she went to the ER because of worsening respiratory symptoms and cough. There she had a chest x-ray without any significant changes show she does have the reticulonodular opacities her interstitial lung disease. Since we last spoke the patient was supposed to undergo blood work and she has not done as of yet. In addition to that the patient did not feel healthy enough to have a sleep study. Therefore she did not have that either. The patient is frustrated that she is no better. Although she also did not follow through with the recommendations. She was provided with prednisone in the hospital and did help her symptoms. She has completed the course at this time. She also finished a course of antibiotics. Again, she has significant interstitial lung disease. Her total lung capacity is decreased consistent with chronic restrictive lung disease from the interstitial lung disease. The etiologies still is unclear. Patient understands the blood work to help try to clear up the etiology of the fibrosis. Indeed, if this fibrosis is progressive then anti fibrotic agents will be warranted. Since the patient is developing significant cough and shortness of breath we did taken for brief walking oximetry in the patient was able to maintain a pulse ox in the low 90s. Therefore the patient does not qualify for oxygen. based on her ongoing symptoms will go ahead and put her on a small dose of prednisone to see if we can stabilize her condition as we move further. The patient understands the importance of the blood work that she needs to get prior to the next visit. In addition to that we briefly spoke about lung biopsies. The patient is reluctant to undergo any invasive or semi-invasive interventions at this time. 05/20/2022 the patient is here for a pulmonary follow-up visit. Overall the patient has been feeling a little better. She is tolerating the prednisone. We did review all her blood work. No evidence of any connective tissue conditions or hyper sensitivity reaction to we can identify. Therefore, no clear etiology for her interstitial lung disease. We talked about diagnostic interventions which is biopsies. However, explained to the patient that this may not necessarily change the overall treatment plan. Therefore will continue to assess the response to prednisone. I am hopeful that she response. we can better assess this will be repeating her imaging studies. In the meantime she continues to cough. The benzo night work great for her cough. Although the not covered. We did look for different alternatives including going with good Rx to see if she can get him on a lower walker. These probably be the best option. Also, we did talk about the if there is any evidence of any progression of her pulmonary fibrosis to suggest progressive idiopathic pulmonary fibrosis then we can consider antifibrotic therapies at that time. 06/18/2022 the patient is here for a pulmonary follow-up visit. The patient overall is feeling better. She is is bonding well to the prednisone. Only taking 10 mg. Her prescription for the Benzonate is with still that [employer] and she did take a very low walker which she is happy about. Her sugars are reasonable staying in the normal range. We did talk about if there is any worsening of the interstitial lung disease suggesting progressive pulmonary fibrosis then we will start Ofev. While give her some reading material in order for her to read up on it. I do believe that she will benefit from the medication if there is any evidence of progression of disease. She does continue to have issues with her sleep. She does wake up tired with headaches. Will perform an overnight oximetry to make sure that she does not need oxygen supplementation. In the meantime she continues with respiratory therapy with good effect. She does continue the Bentson eyes again with very good response improving her cough overall. 07/29/2022 the patient is here for pulmonary follow-up visit. She is feeling a little better on the prednisone and also continues on the Bentson eyes with good effect. Her cough is overall better. She still has some dyspnea on exertion with activity which is mild severity. We did review her last CT scan of the chest that she had in June 2022 demonstrating interval worsening of the interstitial lung disease as well as evidence of scarring and some evidence of ground-glass opacities. She therefore, based on the worsening disease I am concerned that she continued to have progressive symptoms. At the basilar progressive interstitial lung disease with pulmonary fibrosis I do believe that she will be a good candidate for Ofev. Will go ahead and request a prior approval from her insurance company. She is in the meantime she continues on the prednisone. She is concerned about the side effects of prednisone but I do believe that she needs additional anti-inflammatory effect due to her ongoing symptoms and findings. Therefore, will go ahead and start him on CellCept. We did talk about potential biopsy. The patient is going to think about it. Will try these medication changes at this time. However, if the patient is no better or there is any worsening of disease then will have to further consider a biopsy. If the patient does need a biopsy and wedge biopsy will be passed 10/29/2022 the patient is here for pulmonary follow-up visit. She continues to have cough and also shortness of breath with activity. I did had sent her prescription for mycophenolate when she was last here. 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 He has been now about 3 months. Explained to her that it appears that she has interval worsening of her interstitial lung disease. She also has diabetes was difficult to increase her prednisone. Mycophenolate will be a very good option in order to decrease the inflammation and hopefully decrease the risk of further scarring. The patient also reviewed the CT scan with me. I did show her the CT scan she had back in 2021 and a CAT scan of 2022 demonstrating worsening of disease. The patient will start the mycophenolate at this time. I did write it down for her so she can start with 1 daily and then increase it to twice a day. In November she is going to come in and get x-rays and also blood work and will follow-up with her at that time. Will plan to repeat her PFTs sometime in February. Also we talked about Ofev. This is a medication we have sent to the pharmacy. We did send a script but not clear what happened as far as the process. I did reach out to our staff in the office to try to get an update of what occurred with the medication Request. Again I reviewed the blood work that we did with her. No evidence of any connective tissue disease. No evidence of any hypersensitivity pneumonitis. Her scarring is primarily at the base suggesting the possibility of UIP versus I fibrotic NSIP. Will see her response to therapy. If the patient does not have any significant response to the therapy then will consider surgical biopsy. [facility] Medical History (Updated 07/30/22 @ 09:07 by Van Hill MD) Abnormal chest x-ray Bibasilar crackles Chronic restrictive lung disease COPD (chronic obstructive pulmonary disease) Diabetes Dyspnea History of postoperative nausea and vomiting ILD (interstitial lung disease) Insomnia Memory loss OAB (overactive bladder) JAREK (obstructive sleep apnea) Pulmonary arterial hypertension Renal cyst Surgical History H/O esophagogastroduodenoscopy History of colonoscopy History of hernia repair Family History Father Hx of diabetes insipidus Mother Hx of diabetes insipidus Social History Household Members: Family Alcohol intake: never Patient Tobacco Use Status: Never used Tobacco Years Smoked: 1yr Second Hand Smoke Exposure: No Review of Systems Const Denies fatigue, Denies fever(s), Denies night sweats, Denies poor appetite and Denies weight loss Eyes Details: glasses Reports requires corrective lenses ENT Reports Normal hearing present, Denies dental pain, Denies dysphagia, Denies hearing loss, Denies mouth pain, Denies odynophagia, Denies throat swelling, Denies tongue swelling and Reports other (Dentition adequate) Card Reports dyspnea on exertion Resp Reports cough and Reports dyspnea on exertion GI Denies abdominal pain, Denies melena, Denies bloating, Denies hematochezia, Denies constipation, Denies GI cramping, Denies dysphagia, Denies excessive flatus, Denies early satiety, Denies heartburn, Denies diarrhea, Denies nausea, Denies odynophagia, Denies vomiting and Denies hematemesis Skin/Breast Denies pruritus, Denies lesions, Denies rash and Denies jaundice Neuro Reports Normal hearing present and Denies Abnormal speech present Endo Denies fatigue Aller/Immun Denies throat swelling and Denies tongue swelling Physical Exam Vital Signs: Last Vital Signs Pulse 62 10/29/22 14:29 Pulse Ox 95 10/29/22 14:29 Oxygen Delivery Method Room Air 10/29/22 14:29 BMI result Body Mass Index 34.4 Const General: alert HEENT General nose exam: Abnormal external nose present and Nasal discharge present Neck Neck: Yes normal visual inspection, Yes full ROM and Yes no lymphadenopathy Chest Chest palpation & inspection: normal inspection of the chest Resp Auscultation: rales bilateral and diminished lung sounds Cardio Rate: regular rate Rhythm: regular rhythm Heart sounds: S1 normal heart sound present and S2 normal heart sound present GI Palpation (GI): Soft to palpation and nontender Auscultation: normal bowel sounds General: Yes no CVA tenderness Back/Spine/Pelvis Back: no CVA tenderness Skin General skin exam: rashes and/or lesions noted Neuro Cranial nerves: Yes Normal hearing present Speech: No Abnormal speech present Extrem General: No clubbing, No cyanosis and Yes edema Assessment & Plan Assessment & Plan (1) Pulmonary arterial hypertension: Comment: secondary Code(s): I27.21 - Secondary pulmonary arterial hypertension (2) COPD (chronic obstructive pulmonary disease): Code(s): J44.9 - Chronic obstructive pulmonary disease, unspecified (3) ILD (interstitial lung disease): Comment: progressively worsening based on CT chest Code(s): J84.9 - Interstitial pulmonary disease, unspecified (4) Chronic restrictive lung disease: Code(s): J98.4 - Other disorders of lung Plan continue symbicort WILFRIDO as needed continue Prednisone 10mg daily start cellcept, steroid sparring agent, will need to check labs while on medicine start OFEV for progressive fibrosis, not responding to prednisone cough medication: benzonates, rx with goodrx repeat CT chest to assess progression of disease 06/2022 PFTs 02/2022 Sleep with HOB elevated Additiional lasix x 3 days for her worsening LE edema F/U 2 months with CXR and labs Orders: Orders Basic Metabolic Panel Today J84.9 - Interstitial pulmonary disease, unspecified Liver Panel Today J84.9 - Interstitial pulmonary disease, unspecified Complete Blood Count Auto Diff Today J84.9 - Interstitial pulmonary disease, unspecified Erythrocyte Sedimentation Rate Today J84.9 - Interstitial pulmonary disease, unspecified XR chest 2V Today J98.4 - Other disorders of lung Medications: New furosemide (Lasix) 20 mg PO DAILY 30 days PRN 14 tabs 0RF edema Coding Level of Care Code Est Pt Level 4 (81906) Diagnoses Pulmonary arterial hypertension I27.21 COPD (chronic obstructive pulmonary disease) J44.9 ILD (interstitial lung disease) J84.9 Chronic restrictive lung disease J98.4 Time Spent (min) 20
[2022-10-29 14:29] VITALS: PULSE 62; O2SAT 95; BMI 34.4
== END 2022-10-29 14:53 | disposition home or self-care (01) ==
PROVIDERS: PCP General Practice; Visit Provider Hospitalist
DX: I27.21 Secondary pulmonary arterial hypertension (principal); J44.9 Chronic obstructive pulmonary disease, unspecified; J84.9 Interstitial pulmonary disease, unspecified; J98.4 Other disorders of lung
CPT/HCPCS: 99214

== ENCOUNTER → 2022-10-29 14:11 | Outpatient (BNVA) | payer OTHER, SELFPAY | PROVIDERS: PCP General Practice; Visit Provider Hospitalist | DX: I27.21 Secondary pulmonary arterial hypertension (principal); J44.9 Chronic obstructive pulmonary disease, unspecified; J84.9 Interstitial pulmonary disease, unspecified; J98.4 Other disorders of lung | CPT/HCPCS: 99212 ==

== ENCOUNTER 2022-11-13 08:44 | Outpatient (REF) | payer OTHER, SELFPAY ==
--- NOTE | ~2022-11-13 | US_ITS ---
EXAMINATION: US RETROPERITONEAL LIMITED (RENAL ONLY) CLINICAL INFORMATION: Cyst of kidney, acquired. COMPARISON: Renal ultrasound 10/16/2021 and 10/19/2020. CT abdomen and pelvis 09/25/2021. X-ray KUB 09/09/2018. TECHNIQUE: Real-time imaging of the kidneys. FINDINGS: RIGHT KIDNEY: 12.2 x 5.4 x 5.7 cm (SAG x AP x TRV). The kidney is normal in size, contour, and echogenicity. Renal cortical thickness is normal. No renal calculi. There is pelviectasis, without luis hydronephrosis. At the interpolar aspect laterally, an 8 mm benign, simple cyst is seen, for which no imaging follow-up is recommended. LEFT KIDNEY: 12.0 x 4.9 x 4.4 cm (SAG x AP x TRV). The kidney is normal in size, contour, and echogenicity. Renal cortical thickness is normal. No calculi or focal parenchymal lesions. No hydronephrosis. US/US renal BI IMPRESSION: Unremarkable examination. A previously seen left renal cyst is not presently identified. A benign, simple right renal cyst is seen, for which no imaging follow-up is recommended.
== END 2022-11-13 08:45 | disposition home or self-care (01) ==
LOC: HO.US 08:44
PROVIDERS: PCP General Practice; Visit Provider Urology
DX: N28.1 Cyst of kidney, acquired (principal)
CPT/HCPCS: 76775

== ENCOUNTER 2022-12-02 07:49 | Outpatient (REF) | payer OTHER, SELFPAY ==
--- NOTE | ~2022-12-02 | XR_ITS ---
EXAMINATION: XR CHEST CLINICAL INFORMATION: Reason for Exam J98.4 - Other disorders of lung COMPARISON: Chest radiograph 04/07/2022, CT chest 07/16/2022 TECHNIQUE: 2 views of the chest FINDINGS: Lines and tubes: None. Low lung volumes with similar background of increased reticular opacities which may reflect a degree of pulmonary fibrosis. No pleural effusion. No pneumothorax. Normal cardiomediastinal silhouette. XR/XR chest 2V IMPRESSION: Low lung volumes with similar background of increased reticular opacities which may reflect a degree of pulmonary fibrosis.
[2022-12-02 09:42] LABS: Basophils Absolute Auto 0.1 X10*3/uL (0.0-0.2); Basophils Percent Auto 0.8 % (0-2); Eosinophils Absolute Auto 0.1 X10*3/uL (0.0-0.4); Eosinophils Percent Auto 1.2 % (0-4); Hematocrit 38.8 % (37.0-47.0); Hemoglobin 12.7 g/dl (12.0-16.0); Imm Gran Abs Auto 0.01 X10*3/uL (0.00-0.03); Imm Gran Pct Auto 0.2 % (0.0-0.4); Lymphocytes Absolute Auto 2.1 X10*3/uL (1.2-4.9); Lymphocytes Percent Auto 31.8 % (20-40); MANUAL DIFF FLAG NO; Mean Corpuscular HGB Conc 32.7 g/dl (31.0-35.0); Mean Corpuscular Hemoglobin 31.7 pg (27.0-33.0); Mean Corpuscular Volume 96.8 fL (80.0-98.0); Mean Platelet Volume 11.8 fL (9.4-12.3); Monocytes Absolute Auto 0.4 X10*3/uL (0.1-1.2); Monocytes Percent Auto 6.2 % (2-11); Neutrophils Absolute Auto 3.9 x10*3/uL (2.0-8.3); Neutrophils Percent Auto 59.8 % (45-73); Platelet Count 220 X10*3/uL (160-400); Red Blood Count 4.01 X10*6/uL (4.20-5.50); Red Cell Distribution Width 12.5 % (11.0-16.0); White Blood Count 6.4 X10*3/uL (4.8-10.8)
[2022-12-02 10:39] LABS: Erythrocyte Sedimentation Rate 30 MM/HR (0-20)
[2022-12-02 11:36] LABS: Alanine Aminotransferase 11 U/L (0-31); Albumin Level 3.8 g/dL (3.5-5.0); Alkaline Phosphatase 60 U/L (39-117); Anion Gap 13 (12-20); Aspartate Amino Transferase 14 U/L (5-31); Bilirubin Direct 0.2 mg/dL (0.0-0.5); Bilirubin Total 0.5 mg/dL (0.0-1.0); Blood Urea Nitrogen 13 mg/dL (9-16); Calcium 9.7 mg/dL (8.4-10.2); Carbon Dioxide 30 mmol/L (22-29); Chloride 105 mmol/L (96-108); Estimated Glomerular Filt Rate > 60; Glucose Random 150 mg/dL (60-115); Potassium 4.5 mmol/L (3.3-5.1); Sodium 143 mmol/L (135-145); Total Protein 7.1 g/dL (6.5-8.0)
== END 2022-12-02 07:50 | disposition home or self-care (01) ==
LOC: HO.XRAY 07:49
PROVIDERS: PCP General Practice; Visit Provider Hospitalist
DX: J84.9 Interstitial pulmonary disease, unspecified (principal); J98.4 Other disorders of lung
CPT/HCPCS: 36415; 71046; 80048; 80076; 85025; 85652

== ENCOUNTER 2022-12-05 13:19 | Outpatient (AMB) | payer OTHER, SELFPAY ==
--- NOTE | 2022-12-05 13:20 | MHC.OFFVIS ---
Intake Intake Visit Reasons: US results(set) Intake Note: Patient presents for follow up renal cyst/OAB/ultrasound (imaging 11/13/22) Urology Medications: Oxybutynin Blood Thinner: Aspirin PVR: 0ml's Business Law Instructor Required: Yes Business Law Instructor Name: RL Accompanied by: Self / Same As Patient Allergies morphine [MORPHINE] Allergy (Mild, Verified 12/06/22 12:01) NAUSEA, VOMITING, DIZZINESS, HOT FLASHES lactose Allergy (Mild, Uncoded 12/06/22 12:01) GI Upset Medication List - Last Reconciled 12/06/22 by LIAT Jeffers- albuterol sulfate 90 mcg/actuation (ProAir HFA) 2 puffs inhalation Q4-6H PRN amlodipine 10 mg PO DAILY aspirin 81 mg PO DAILY atorvastatin 40 mg PO BEDTIME benzonatate 200 mg PO BID blood sugar diagnostic As directed budesonide-formoterol 160-4.5 mcg/actuation (Symbicort) 2 puffs PO BID cholecalciferol (vitamin D3) (Vitamin D3) 50 mcg PO DAILY cyanocobalamin (vitamin B-12) 1,000 mcg PO DAILY furosemide (Lasix) 20 mg PO DAILY PRN 30 days gabapentin 0 mg PO glipizide ER 5 mg PO QAM lancets As directed ilkusd-fkcwfqhj-uznbkgk 24,000-76,000 -120,000 unit (Creon) 1 cap PO QID 30 days losartan 100 mg PO DAILY melatonin 10 mg PO BEDTIME metformin ER 1,000 mg PO BID metoprolol succinate ER 100 mg PO DAILY mycophenolate mofetil TAKE 1 TABLET BY MOUTH TWICE A DAY nintedanib (Ofev) 150 mg PO Q12H 30 days omeprazole 20 mg PO BID oxybutynin chloride ER 10 mg PO DAILY 90 days oxycodone-acetaminophen 5-325 mg 1 tab PO TID PRN prednisone 10 mg PO DAILY 30 days simethicone 180 mg PO BID sitagliptin phosphate 50 mg PO QAM trazodone 100 mg (2 x 50 mg) PO BEDTIME HPI HPI Comments History of Present Illness Details Snehal is a very pleasant 72-year-old Swedish-speaking female patient of . She has a PMH of chronic restrictive lung disease, interstitial lung disease, memory loss, COPD, overactive bladder, renal cyst, insomnia, obstructive sleep apnea, and pulmonary arterial hypertension. She presents to the office today for follow-up of her renal cysts and lower urinary tract symptoms. In discussion with the patient today she reports to be doing and feeling well. Recent renal imaging results reviewed with the patient today. At the inter pole aspect laterally and 8 mm benign right renal cyst is seen. For which no imaging follow-up is recommended per radiology report. Left kidney with no calculi, lesions or hydronephrosis. When asked patient reports she continues with overactive bladder symptoms of urinary urgency, urinary frequency and episodes of incontinence if not near a bathroom however did not feel oxybutynin was working and has since stopped taking this medication. She otherwise denies hematuria, dysuria, foul smelling urine, changes to urinary stream, flank pain, fever, and or chills. Discussed at length importance of managing diabetes for improvement in lower urinary tract symptoms as well as overall health and well-being. Discussed trial of other overactive bladder medications as well as importance of pelvic floor therapy. In office urinalysis results reviewed with the patient today. PVR 0 mL. PFS Medical History Chronic restrictive lung disease Abnormal chest x-ray ILD (interstitial lung disease) Memory loss COPD (chronic obstructive pulmonary disease) OAB (overactive bladder) Renal cyst History of postoperative nausea and vomiting Diabetes Insomnia JAREK (obstructive sleep apnea) Pulmonary arterial hypertension Bibasilar crackles Dyspnea Surgical History H/O esophagogastroduodenoscopy History of hernia repair History of colonoscopy Family History Father Hx of diabetes insipidus Mother Hx of diabetes insipidus Social History Household Members: Family Alcohol intake: never Patient Tobacco Use Status: Never used Tobacco Years Smoked: 1yr Second Hand Smoke Exposure: No Review of Systems Const Reports as per HPI Eyes Reports no additional complaints ENT Reports as per HPI Card Reports as per HPI Resp Reports as per HPI GI Reports no additional complaints Reports as per HPI Musc Reports no additional complaints Neuro Reports no additional complaints Psych Reports no additional complaints Endo Reports as per HPI Geronimo/Lymph Reports no additional complaints Aller/Immun Reports no additional complaints Physical Exam Const General: cooperative, healthy appearing, comfortable, no acute distress, well developed, alert and awake Orientation/consciousness: patient oriented x3 Limitations: no limitations HEENT Head: Yes normal to inspection, Yes normocephalic and Yes atraumatic Ears: hearing grossly normal bilaterally Eyes General: appearance normal, both eyes and all related structures Neck Neck: Yes normal visual inspection and Yes trachea midline Chest Chest palpation & inspection: normal inspection of the chest Resp Effort & Inspection: normal respiratory effort and able to speak in complete sentences Cardio Rate: regular rate GI Inspection: Yes normal to inspection General: Yes no CVA tenderness Back/Spine/Pelvis Back: no CVA tenderness Skin General skin exam: no rashes or lesions noted Neuro General: patient oriented x3 Extrem General: Yes normal to inspection Psych Appearance: grossly normal and well kempt Mental Status: mental status grossly normal Speech and movement: Normal speech and movement present and Clear speech present Affect: normal affect Attitude: cooperative Thought process: Normal thought process present Thought content: Normal thought content present Insight: Good insight present (Psych) Judgement: Good judgement present (Psych) Office Procedures Post Void Residual Post Residual Void Post Void Residual (PVR): 0 [id number] Void Residual by ultrasound Results AMB Urinalysis, Automated UA Leukoctes 0 Gabriela/uL Last Edit by [employer] on 12/05/22 13:45 UA Nitrite Last Edit by [employer] on 12/05/22 13:45 UA Urobilinogen 0.2 mg/dL Last Edit by [employer] on 12/05/22 13:45 UA Protein 15 mg/dL Last Edit by [employer] on 12/05/22 13:45 UA pH 5.5 Last Edit by [employer] on 12/05/22 13:45 UA Blood 0 Neno/uL Last Edit by [employer] on 12/05/22 13:45 UA Specific Henderson 1.030 Last Edit by [employer] on 12/05/22 13:45 UA Ketone Positive Last Edit by [employer] on 12/05/22 13:45 UA Bilirubin 1 mg/dL Last Edit by [employer] on 12/05/22 13:45 UA Glucose 0 mg/dL Last Edit by [employer] on 12/05/22 13:45 Results Reviewed Results Reviewed: Laboratory Last Values Urine pH (Auto) 5.5 12/05/22 13:42 Specific Henderson (Auto) 1.030 12/05/22 13:42 Urine Protein (Auto) 15 mg/dL 12/05/22 13:42 Glucose (UA)(Auto) 0 mg/dL 12/05/22 13:42 Urine Ketones (Auto) Positive 12/05/22 13:42 Urine Blood (Auto) 0 Neno/uL 12/05/22 13:42 Urine Bilirubin (Auto) 1 mg/dL 12/05/22 13:42 Urine Urobilinogen (Auto) 0.2 mg/dL 12/05/22 13:42 Leukocyte Esterase (Auto) 0 Gabriela/uL 12/05/22 13:42 Date of Service: 11/13/22 EXAMINATION: US RETROPERITONEAL LIMITED (RENAL ONLY) FINDINGS: RIGHT KIDNEY: 12.2 x 5.4 x 5.7 cm (SAG x AP x TRV). The kidney is normal in size, contour, and echogenicity. Renal cortical thickness is normal. No renal calculi. There is pelviectasis, without luis hydronephrosis. At the interpolar aspect laterally, an 8 mm benign, simple cyst is seen, for which no imaging follow-up is recommended. LEFT KIDNEY: 12.0 x 4.9 x 4.4 cm (SAG x AP x TRV). The kidney is normal in size, contour, and echogenicity. Renal cortical thickness is normal. No calculi or focal parenchymal lesions. No hydronephrosis. IMPRESSION: Unremarkable examination. A previously seen left renal cyst is not presently identified. A benign, simple right renal cyst is seen, for which no imaging follow-up is recommended. Assessment & Plan Assessment & Plan (1) Renal cyst: Code(s): N28.1 - Cyst of kidney, acquired (2) OAB (overactive bladder): Code(s): N32.81 - Overactive bladder Plan In office urinalysis results reviewed with the patient today. Recent renal imaging results reviewed with the patient today; as noted above. Stop oxybutynin Start Myrbetriq as discussed and prescribed. Discussed at length importance of managing diabetes for improvement in lower urinary tract symptoms as well as for overall health and well-being. Discussed near future in office cystoscopy if symptoms persist and/or worsen. Discussed pelvic floor therapy Discussed, educated, encouraged to continue drinking plenty of water daily. Follow-up in 6 weeks with PVR; or sooner with any issues, concerns, and or questions. Orders: Orders AMB Urinalysis Automated 12/05/22 Z13.9 - Encounter for screening, unspecified AMB Post Void Residual by ultrasound 12/05/22 N32.81 - Overactive bladder Medications: New mirabegron ER (Myrbetriq) 25 mg PO DAILY 30 tabs 1RF 30 days N30.10 - Interstitial cystitis (chronic) without hematuria, N32.81 - Overactive bladder, R35.1 - Nocturia, R39.15 - Urgency of urination Patient Instructions: The patient had an opportunity to ask questions regarding the treatment plan. All questions were answered. Physical exam, labs, and imaging were discussed and reviewed in detail. As well as risks, benefits, and discussion of treatment choices. No major barriers to understanding were identified. The patient expressed understanding and agreement with the above treatment plan. The patient was made aware they should contact our office by phone for worsening of their current condition, the appearance of new symptoms, or with any questions or concerns. Compliance is encouraged with any medications and follow up testing that is ordered. It is a privilege to be allowed the opportunity to participate in? your urological care.? Again, if you have any questions or concerns If you have any questions or concerns please do not hesitate to contact me. The office is [phone]. This note is constructed using voice recognition software. While every effort has been made to ensure accuracy grain elevator clerk errors may have been included. Yours sincerely, ACE Jeffers Coding Level of Care Code Est Pt Level 4 (30467) Diagnoses Renal cyst N28.1 OAB (overactive bladder) N32.81 CPT Codes Post Residual Void - PVR CPT Code: 65064-Vlkl Void Residual by ultrasound ([id number])
== END 2022-12-05 14:04 | disposition home or self-care (01) ==
PROVIDERS: PCP General Practice; Visit Provider Nurse Practitioner Family
DX: N28.1 Cyst of kidney, acquired (principal); N32.81 Overactive bladder
CPT/HCPCS: 99214

== ENCOUNTER → 2022-12-05 13:19 | Outpatient (BNVA) | payer OTHER, SELFPAY | PROVIDERS: PCP General Practice; Visit Provider Nurse Practitioner Family | DX: N32.81 Overactive bladder (principal); N28.1 Cyst of kidney, acquired | CPT/HCPCS: 51798; 81003; 99212 ==

== ENCOUNTER 2022-12-20 14:03 | Outpatient (AMB) | payer OTHER, SELFPAY ==
[2022-12-20 14:08] VITALS: PULSE 73; O2SAT 95; BMI 34.4
--- NOTE | 2022-12-20 14:08 | A.OFFVIS_ITS ---
Intake Vital Signs 12/20/22 14:08 Height 5 ft Weight 176 lb BMI 34.4 Pulse 73 Pulse Source Pulse Oximeter Pulse Oximetry (%) 95 Oxygen Delivery Method Room Air Intake Visit Reasons: pulmonary hypertension Teleprinter Installer Required: No Allergies morphine [MORPHINE] Allergy (Mild, Verified 12/20/22 14:09) NAUSEA, VOMITING, DIZZINESS, HOT FLASHES lactose Allergy (Mild, Uncoded 12/20/22 14:09) GI Upset HPI HPI Comments History of Present Illness Details The patient is a 72-year-old woman with known pulmonary hypertension. She also has obstructive airway disease and has been on short-acting beta agonist. She has been having increasing shortness of breath. And she has been using her rescue inhaler with partial response. At this point will start her on a maintenance inhaler. In addition to that in view of her pulmonary hypertension will go ahead and request an overnight oximetry to assess her for nocturnal hypoxia. She does have any evidence of any nocturnal hypoxia will be imperative to start her on oxygen supplementation to treat her underlying pulmonary hypertension. 12/24/2021 the patient is here for a pulm onary follow-up visit. Since we last spoke the patient did picker and sorter load and unload the Symbicort inhaler but she has not used it. She also did not have her blood work done. We did arrange for her to have an overnight oximetry but not clear, but she did not have it done. At this point the patient has been having issues with memory lapse. She states that she woke up this morning known she had an appointment then she went to the bank and she forget totally about the appointment. Explained to her that untreated sleep apnea can result in issues with memory loss. We did review her sleep study from 2019 demonstrating severe sleep apnea with an AHI of 27 events per hour. She also has significant desaturations. Therefore I did explain to her the importance of going back on PAP therapy. I will request an in-lab study in view of her hypoxia and significant daytime drowsiness. Her Victor score is elevated 1224. The patient also has cardiovascular risk factors including pulmonary hypertension in addition to that she did have her chest x-ray demonstrating coarse interstitial markings suggesting pulmonary fibrosis. Her examination also consistent with bilateral crackles which is concerning for pulmonary fibrosis. Will go ahead and request a CT scan at this time. The patient also on a PFTs. We did go over the Symbicort inhaler with her enough office. I also gave her a spacer. She was able to use admission mouth 2 is she feels more comfortable using it now will start using it. She does have diabetes starting her on prednisone will be very difficult. Will see how she response to the Symbicort and if she has any issues she always knows to call the office. At the end of the office visit we did go for brief Stroll and her oxygen maintain between 93-94% with activity. Her heart rate did increase to about 115-120. The patient does not qualify for oxygen at this time. However, if she has further progression of her underlying interstitial lung disease then this may become more likely. 02/25/2022 the patient is here for pulmonary follow-up visit. The patient continues to complaint of cough and shortness of breath. Tfuk-dw-wlcwdbal altaf rity. We did review her CT scan of the chest demonstrating reticular changes primarily at the periphery and also at the bases. this consistent with pulmonary fibrosis and interstitial lung disease. Will go ahead and request blood work assessing for connective tissue conditions and inflammatory conditions that can result in this picture. Ultimately, we have to make sure followed closely to make sure it is not progressive in nature. If it is progressive then UIP pattern needs to be considered. Pulmonary function studies also suggestive of a moderate restriction consistent with significant restrictive lung disease secondary to the pulmonary fibrosis. At this point will go ahead and await her sleep study. She continues to have daytime drowsiness and also has an elevated Victor score of 11/24. The patient also has underlying pulmonary hypertension. Therefore she undergo blood work and also undergo her sleep study and will follow-up in the next couple months. 04/29/2022 the patient is here for a pulmonary follow-up visit. Recently she went to the ER because of worsening respiratory symptoms and cough. There she had a chest x-ray without any significant changes show she does have the reticulonodular opacities her interstitial lung disease. Since we last spoke the patient was supposed to undergo blood work and she has not done as of yet. In addition to that the patient did not feel healthy enough to have a sleep study. Therefore she did not have that either. The patient is frustrated that she is no better. Although she also did not follow through with the recom mendations. She was provided with prednisone in the hospital and did help her symptoms. She has completed the course at this time. She also finished a course of antibiotics. Again, she has significant interstitial lung disease. Her total lung capacity is decreased consistent with chronic restrictive lung disease from the interstitial lung disease. The etiologies still is unclear. Patient understands the blood work to help try to clear up the etiology of the fibrosis. Indeed, if this fibrosis is progressive then anti fibrotic agents will be warranted. Since the patient is developing significant cough and shortness of breath we did taken for brief walking oximetry in the patient was able to maintain a pulse ox in the low 90s. Therefore the patient does not qualify for oxygen. based on her ongoing symptoms will go ahead and put her on a small dose of prednisone to see if we can stabilize her condition as we move further. The patient understands the importance of the blood work that she needs to get prior to the next visit. In addition to that we briefly spoke about lung biopsies. The patient is reluctant to undergo any invasive or semi- invasive interventions at this time. 05/20/2022 the patient is here for a pulmonary follow-up visit. Overall the patient has been feeling a little better. She is tolerating the prednisone. We did review all her blood work. No evidence of any connective tissue conditions or hyper sensitivity reaction to we can identify. Therefore, no clear etiology for her interstitial lung disease. We talked about diagnostic interventions which is biopsies. However, explained to the patient that this may not necessarily change the overall treatment plan. Therefore will continue to assess the response to prednisone. I am hopeful that she response. we can better assess this will be repeating her imaging studies. In the meantime she continues to cough. The benzo night work great for her cough. Although the not covered. We did look for different alternatives including going with good Rx to see if she can get him on a lower walker. These probably be the best option. Also, we did talk about the if there is any evidence of any progression of her pulmonary fibrosis to suggest progressive idiopathic pulmonary fibrosis then we can consider antifibrotic therapies at that time. 06/18/2022 the patient is here for a pulm onary follow-up visit. The patient overall is feeling better. She is is bonding well to the prednisone. Only taking 10 mg. Her prescription for the Benzonate is with still that [employer] and she did take a very low walker which she is happy about. Her sugars are reasonable staying in the normal range. We did talk about if there is any worsening of the interstitial lung disease suggesting progressive pulmonary fibrosis then we will start Ofev. While give her some reading material in order for her to read up on it. I do believe that she will benefit from the medication if there is any evidence of progression of disease. She does continue to have issues with her sleep. She does wake up tired with headaches. Will perform an overnight oximetry to make sure that she does not need oxygen supplementation. In the meantime she continues with respiratory therapy with good effect. She does continue the Bentson eyes again with very good response improving her cough overall. 07/29/2022 the patient is here for pulmona ry follow-up visit. She is feeling a little better on the prednisone and also continues on the Bentson eyes with good effect. Her cough is overall better. She still has some dyspnea on exertion with activity which is mild severity. We did review her last CT scan of the chest that she had in June 2022 demonstrating interval worsening of the interstitial lung disease as well as evidence of scarring and some evidence of ground-glass opacities. She therefore, based on the worsening disease I am concerned that she continued to have progressive symptoms. At the caro centerssive interstitial lung disease with pulmonary fibrosis I do believe that she will be a good candidate for Ofev. Will go ahead and request a prior approval from her insurance company. She is in the meantime she continues on the prednisone. She is concerned about the side effects of prednisone but I do believe that she needs additional anti-inflammatory effect due to her ongoing symptoms and findings. Therefore, will go ahead and start him on CellCept. We did talk about potential biopsy. The patient is going to think about it. Will try these medication changes at this time. However, if the patient is no better or there is any worsening of disease then will have to further consider a biopsy. If the patient does need a biopsy and wedge biopsy will be passed 10/29/2022 the patient is here for pulmonary follow-up visit. She continues to have cough and also shortness of breath with activity. I did had sent her prescription for mycophenolate when she was last here. She did picker and sorter load and unload the medication but she has not taking it as of yet. He has been now about 3 months. Explained to her that it appears that she has interval worsening of her interstitial lung disease. She also has diabetes was difficult to increase her prednisone. Mycophenolate will be a very good option in order to decrease the inflammation and hopefully decrease the risk of further scarring. The patient also reviewed the CT scan with me. I did show her the CT scan she had back in 2021 and a CAT scan of 2022 demonstrating worsening of disease. The patient will start the mycophenolate at this time. I did write it down for her so she can start with 1 daily and then increase it to twice a day. In November she is going to come in and get x-rays and also blood work and will follow-up with her at that time. Will plan to repeat her PFTs sometime in February. Also we talked about Ofev. This is a medication we have sent to the pharmacy. We did send a script but not clear what happened as far as the process. I did reach out to our staff in the office to try to get an update of what occurred with the medication Request. Again I reviewed the blood work that we did with her. No evidence of any connective tissue disease. No evidence of any hypersensitivity pneumonitis. Her scarring is primarily at the base suggesting the possibility of UIP versus I fibrotic NSIP. Will see her response to therapy. If the patient does not have any significant response to the therapy then will consider surgical biopsy. 12/20/2022 the patient is here for a pulmonary follow-up visit. The patient c ontinues to be about the same. She does have the frequent constant cough. It is nonproductive in nature. Responds well to the current medications. She also has shortness of breath with activity. Does not feel like she is getting any worse from the last visit. The patient did have a repeat chest x-ray demonstrating some interval worsening though. Therefore she understands that this interstitial lung disease may indeed be progressive which is a concern. She has been on mycophenolate although she is only taking 1 tablet daily with which she was supposed to be taking more. Therefore I did write down the instructions on how she is to take the mycophenolate. She is going to titrate up to hopefully 2 tablets b.i.d.. Blood work was reassuring without any evidence of any organ toxicity. When she reaches she is the 2 g a day does she will go ahead and have additional blood work. When she is on 2 g the patient will also cut down on the prednisone. We did talk about Ofev has good option for her specially if indeed this appears to be a per aggressive interstitial fibrosis. Therefore, will see how she responds to this current increase medications she will have a repeat chest x-ray and if there is any worsening of symptoms and or imaging studies then will go ahead and start Ofev. [facility] Medical History Chronic restrictive lung disease Abnormal chest x-ray ILD (interstitial lung disease) Memory loss COPD (chronic obstructive pulmonary disease) OAB (overactive bladder) Renal cyst History of postoperative nausea and vomiting Diabetes Insomnia JAREK (obstructive sleep apnea) Pulmonary arterial hypertension Bibasilar crackles Dyspnea Surgical History H/O esophagogastroduodenoscopy History of hernia repair History of colonoscopy Family History Father Hx of diabetes insipidus Mother Hx of diabetes insipidus Social History Household Members: Family Alcohol intake: never Patient Tobacco Use Status: Never used Tobacco Years Smoked: 1yr Second Hand Smoke Exposure: No Review of Systems Const Denies fatigue, Denies fever(s), Denies night sweats, Denies poor appetite and Denies weight loss Eyes Details: glasses Reports requires corrective lenses ENT Reports Normal hearing present, Denies dental pain, Denies dysphagia, Denies hearing loss, Denies mouth pain, Denies odynophagia, Denies throat swelling, Denies tongue swelling and Reports other (Dentition adequate) Card Reports dyspnea on exertion Resp Reports cough and Reports dyspnea on exertion GI Denies abdominal pain, Denies melena, Denies bloating, Denies hematochezia, Denies constipation, Denies GI cramping, Denies dysphagia, Denies excessive flatus, Denies early satiety, Denies heartburn, Denies diarrhea, Denies nausea, Denies odynophagia, Denies vomiting and Denies hematemesis Skin/Breast Denies pruritus, Denies lesions, Denies rash and Denies jaundice Neuro Reports Normal hearing present and Denies Abnormal speech present Endo Denies fatigue Aller/Immun Denies throat swelling and Denies tongue swelling Physical Exam Vital Signs: Last Vital Signs Pulse 73 12/20/22 14:08 Pulse Ox 95 12/20/22 14:08 Oxygen Delivery Method Room Air 12/20/22 14:08 BMI result Body Mass Index 34.4 Const General: alert HEENT General nose exam: Abnormal external nose present and Nasal discharge present Neck Neck: Yes normal visual inspection, Yes full ROM and Yes no lymphadenopathy Chest Chest palpation & inspection: normal inspection of the chest Resp Auscultation: rales bilateral and diminished lung sounds Cardio Rate: regular rate Rhythm: regular rhythm Heart sounds: S1 normal heart sound present and S2 normal heart sound present GI Palpation (GI): Soft to palpation and nontender Auscultation: normal bowel sounds General: Yes no CVA tenderness Back/Spine/Pelvis Back: no CVA tenderness Skin General skin exam: rashes and/or lesions noted Neuro Cranial nerves: Yes Normal hearing present Speech: No Abnormal speech present Extrem General: No clubbing, No cyanosis and Yes edema Immunizations pneumoc 20-ida conj-dip cr(PF) 0.5 mL IM syringe Performing Provider: Van Hill MD Per[place] [facility] Administered by: Cat Craig LPN on 12/20/22 14:44 Dose Route Admin Location Dispensed Lot Number Expiration Date NDC [employer] Trainee 0.5 mL IM Left Deltoid 0.5 mL [id number] 01/22/24 [id number] [employer] VIS Given Date VIS Provided VIS Publication Date 12/20/22 Single Vaccine 22 Eligibility Eligibility Date Funding Source Not [facility] Eligible 12/20/22 Private Assessment & Plan Assessment & Plan (1) Pulmonary arterial hypertension: Comment: secondary Code(s): I27.21 - Secondary pulmonary arterial hypertension (2) COPD (chronic obstructive pulmonary disease): Code(s): J44.9 - Chronic obstructive pulmonary disease, unspecified Qualifiers: COPD type: chronic bronchitis Chronic bronchitis type: simple Qualified Code(s): J41.0 - Simple chronic bronchitis (3) ILD (interstitial lung disease): Comment: progressively worsening based on CT chest Code(s): J84.9 - Interstitial pulmonary disease, unspecified (4) Chronic restrictive lung disease: Code(s): J98.4 - Other disorders of lung Plan continue symbicort WILFRIDO as needed continue Prednisone 10mg daily, will decrease to 7.5mg daily once on 2gm of mycophenalate increase cellcept, up to 2gm/day start OFEV for progressive fibrosis, not responding to prednisone/mycophenalate. cough medication: benzonates, rx with goodrx CXR prior to next visit repeat CT chest to assess progression of disease 06/2022 Sleep with HOB elevated F/U 2 months with CXR and labs Orders: Orders Pneumococcal 20 Immunization 12/20/22 J44.9 - Chronic obstructive pulmonary disease, unspecified, J84.9 - Interstitial pulmonary disease, unspecified Complete Blood Count Auto Diff 12/20/22 J84.9 - Interstitial pulmonary disease, unspecified Liver Panel 12/20/22 J84.9 - Interstitial pulmonary disease, unspecified XR chest 2V 12/20/22 J84.9 - Interstitial pulmonary disease, unspecified Basic Metabolic Panel 12/20/22 J84.9 - Interstitial pulmonary disease, unspecified Erythrocyte Sedimentation Rate 12/20/22 J84.9 - Interstitial pulmonary disease, unspecified Medications: Changed From mycophenolate mofetil TAKE 1 TABLET BY MOUTH TWICE A DAY 60 tabs 6RF J84.9 - Interstitial pulmonary disease, unspecified To mycophenolate mofetil (2 x 500 mg) 1,000 mg; 30 days 60 tabs 6RF J84.9 - Interstitial pulmonary disease, unspecified Refilled albuterol sulfate 90 mcg/actuation (ProAir HFA) 2 puffs inhalation Q4-6H PRN 8.5 grams 6RF shortness of breath or wheezing Coding Level of Care Code Est Pt Level 4 (72495) Diagnoses Pulmonary arterial hypertension I27.21 Simple chronic bronchitis J41.0 COPD type: chronic bronchitis Chronic bronchitis type: simple ILD (interstitial lung disease) J84.9 Chronic restrictive lung disease J98.4 Time Spent (min) 18
== END 2022-12-20 14:31 | disposition home or self-care (01) ==
PROVIDERS: PCP General Practice; Visit Provider Hospitalist
DX: I27.21 Secondary pulmonary arterial hypertension (principal); J41.0 Simple chronic bronchitis; J84.9 Interstitial pulmonary disease, unspecified; J98.4 Other disorders of lung
CPT/HCPCS: 99214

== ENCOUNTER → 2022-12-20 14:03 | Outpatient (BNVA) | payer OTHER, SELFPAY | PROVIDERS: PCP General Practice; Visit Provider Hospitalist | DX: Z23 Encounter for immunization (principal); J84.9 Interstitial pulmonary disease, unspecified; J98.4 Other disorders of lung; I27.21 Secondary pulmonary arterial hypertension; J41.0 Simple chronic bronchitis | CPT/HCPCS: 90471; 90677; 99212 ==

== ENCOUNTER 2023-01-14 11:46 | Outpatient (AMB) | payer OTHER, SELFPAY ==
--- NOTE | 2023-01-14 11:50 | MHC.OFFVIS ---
Intake Intake Visit Reasons: 6w/PVR Intake Note: Patient presents for follow up OAB/renal cyst Urology Medications: D/C Oxybutynin, myrbetriq Blood Thinner: Aspirin PVR: 24ml's Distance Learning Coordinator Required: Yes Accompanied by: Self / Same As Patient Allergies morphine [MORPHINE] Allergy (Mild, Verified 01/14/23 12:12) NAUSEA, VOMITING, DIZZINESS, HOT FLASHES lactose Allergy (Mild, Uncoded 01/14/23 12:12) GI Upset Medication List - Last Reconciled 01/14/23 by LIAT Jeffers- albuterol sulfate 90 mcg/actuation (ProAir HFA) 2 puffs inhalation Q4-6H PRN amlodipine 10 mg PO DAILY aspirin 81 mg PO DAILY atorvastatin 40 mg PO BEDTIME benzonatate 200 mg PO BID blood sugar diagnostic As directed budesonide-formoterol 160-4.5 mcg/actuation (Symbicort) 2 puffs PO BID cholecalciferol (vitamin D3) (Vitamin D3) 50 mcg PO DAILY cyanocobalamin (vitamin B-12) 1,000 mcg PO DAILY furosemide (Lasix) 20 mg PO DAILY PRN 30 days gabapentin 0 mg PO glipizide ER 5 mg PO QAM lancets As directed ibbueq-bdcajuls-rvctupe 24,000-76,000 -120,000 unit (Creon) 1 cap PO QID 30 days losartan 100 mg PO DAILY melatonin 10 mg PO BEDTIME metformin ER 1,000 mg PO BID metoprolol succinate ER 100 mg PO DAILY mirabegron ER (Myrbetriq) 25 mg PO DAILY 90 days mycophenolate mofetil 1,000 mg; 30 days nintedanib (Ofev) 150 mg PO Q12H 30 days omeprazole 20 mg PO BID oxycodone-acetaminophen 5-325 mg 1 tab PO TID PRN prednisone 10 mg PO DAILY 30 days simethicone 180 mg PO BID sitagliptin phosphate 50 mg PO QAM trazodone 100 mg (2 x 50 mg) PO BEDTIME HPI HPI Comments History of Present Illness Details Snehal is a very pleasant 72-year-old Vietnamese-speaking female patient of Dr. Thacker. She has a PMH of chronic restrictive lung disease, interstitial lung disease, memory loss, COPD, overactive bladder, renal cyst, insomnia, obstructive sleep apnea, and pulmonary arterial hypertension. She presents to the office today for follow-up of her renal cyst and lower urinary tract symptoms. In discussion with the patient today she reports to be doing and feeling well. Of note, patient was seen approximately 6 weeks ago at which time she was started on Myrbetriq 25 mg daily for her reports of urinary urgency, urinary frequency, and episodes of incontinence if not near a bathroom. When asked she reports to be happy with current voiding parameters on Myrbetriq 25 mg daily and wishes to continue. She had previously trialed oxybutynin in did not feel this worked. Previous workup has included a renal ultrasound showing at the inter pole aspect laterally and 8 mm benign right renal cyst is seen. For which no imaging follow-up is recommended per radiology report. Left kidney with no calculi, lesions or hydronephrosis. When asked she denies hematuria, dysuria, foul smelling urine, changes to urinary stream, flank pain, fever, and or chills. Discussed at length importance of managing diabetes for improvement in lower urinary tract symptoms as well as overall health and well-being. In office urinalysis results reviewed with the patient today. PVR 24 mL. [facility] Medical History Chronic restrictive lung disease Abnormal chest x-ray ILD (interstitial lung disease) Memory loss COPD (chronic obstructive pulmonary disease) OAB (overactive bladder) Renal cyst History of postoperative nausea and vomiting Diabetes Insomnia JAREK (obstructive sleep apnea) Pulmonary arterial hypertension Bibasilar crackles Dyspnea Surgical History H/O esophagogastroduodenoscopy History of hernia repair History of colonoscopy Family History Father Hx of diabetes insipidus Mother Hx of diabetes insipidus Social History Household Members: Family Alcohol intake: never Patient Tobacco Use Status: Never used Tobacco Years Smoked: 1yr Second Hand Smoke Exposure: No Review of Systems Const Reports as per HPI Eyes Reports no additional complaints ENT Reports as per HPI Card Reports as per HPI Resp Reports as per HPI GI Reports no additional complaints Reports as per HPI Musc Reports no additional complaints Neuro Reports no additional complaints Psych Reports no additional complaints Endo Reports as per HPI Geronimo/Lymph Reports no additional complaints Aller/Immun Reports no additional complaints Physical Exam Const General: cooperative, healthy appearing, comfortable, no acute distress, well developed, alert and awake Orientation/consciousness: patient oriented x3 Limitations: no limitations HEENT Head: Yes normal to inspection, Yes normocephalic and Yes atraumatic Ears: hearing grossly normal bilaterally Eyes General: appearance normal, both eyes and all related structures Neck Neck: Yes normal visual inspection and Yes trachea midline Chest Chest palpation & inspection: normal inspection of the chest Resp Effort & Inspection: normal respiratory effort and able to speak in complete sentences Cardio Rate: regular rate GI Inspection: Yes normal to inspection General: Yes no CVA tenderness Back/Spine/Pelvis Back: no CVA tenderness Skin General skin exam: no rashes or lesions noted Neuro General: patient oriented x3 Extrem General: Yes normal to inspection Psych Appearance: grossly normal and well kempt Mental Status: mental status grossly normal Speech and movement: Normal speech and movement present and Clear speech present Affect: normal affect Attitude: cooperative Thought process: Normal thought process present Thought content: Normal thought content present Insight: Good insight present (Psych) Judgement: Good judgement present (Psych) Office Procedures Post Void Residual Post Residual Void Post Void Residual (PVR): 24 [id number] Void Residual by ultrasound Results AMB Urinalysis, Automated UA Leukoctes 0 Gabriela/uL Last Edit by [employer] on 01/14/23 12:08 UA Nitrite Negative Last Edit by [employer] on 01/14/23 12:08 UA Urobilinogen 0.2 mg/dL Last Edit by [employer] on 01/14/23 12:08 UA Protein 15 mg/dL Last Edit by [employer] on 01/14/23 12:08 UA pH 6.0 Last Edit by [employer] on 01/14/23 12:08 UA Blood 0 Neno/uL Last Edit by [employer] on 01/14/23 12:08 UA Specific [place] 1.030 Last Edit by [employer] on 01/14/23 12:08 UA Ketone Negative Last Edit by [employer] on 01/14/23 12:08 UA Bilirubin 2 mg/dL Last Edit by [employer] on 01/14/23 12:08 UA Glucose 0 mg/dL Last Edit by Oumou Campos on 01/14/23 12:08 Results Reviewed Results Reviewed: Laboratory Last Values Urine pH (Auto) 6.0 01/14/23 11:56 Specific [place] (Auto) 1.030 01/14/23 11:56 Urine Protein (Auto) 15 mg/dL 01/14/23 11:56 Glucose (UA)(Auto) 0 mg/dL 01/14/23 11:56 Urine Ketones (Auto) Negative 01/14/23 11:56 Urine Blood (Auto) 0 Neno/uL 01/14/23 11:56 Urine Nitrite (Auto) Negative 01/14/23 11:56 Urine Bilirubin (Auto) 2 mg/dL 01/14/23 11:56 Urine Urobilinogen (Auto) 0.2 mg/dL 01/14/23 11:56 Leukocyte Esterase (Auto) 0 Gabriela/uL 01/14/23 11:56 Assessment & Plan Assessment & Plan (1) Renal cyst: Code(s): N28.1 - Cyst of kidney, acquired (2) OAB (overactive bladder): Code(s): N32.81 - Overactive bladder Plan In office urinalysis results reviewed with the patient today; as noted above. PVR 24 mL. Patient reports be happy with current voiding parameters on 25 mg of Myrbetriq daily; will continue; refill provided. Discussed and stressed the importance of managing diabetes for improvement lower urinary tract symptoms as well as overall health and well-being. Discussed importance of continuing with pelvic floor exercises Educated, encouraged, in stressed the importance of drinking plenty of water daily. Will continue with surveillance monitoring of renal cyst Follow-up in 6 months with PVR; or sooner with any issues, concerns, and or questions. Orders: Orders AMB Urinalysis Automated Today Z13.9 - Encounter for screening, unspecified AMB Post Void Residual by ultrasound Today N32.81 - Overactive bladder Medications: Changed From mirabegron ER (Myrbetriq) 25 mg PO DAILY 30 days 30 tabs 1RF N30.10 - Interstitial cystitis (chronic) without hematuria, N32.81 - Overactive bladder, R35.1 - Nocturia, R39.15 - Urgency of urination To mirabegron ER (Myrbetriq) 25 mg PO DAILY 90 days 90 tabs 4RF N30.10 - Interstitial cystitis (chronic) without hematuria, N32.81 - Overactive bladder, R35.1 - Nocturia, R39.15 - Urgency of urination Patient Instructions: The patient had an opportunity to ask questions regarding the treatment plan. All questions were answered. Physical exam, labs, and imaging were discussed and reviewed in detail. As well as risks, benefits, and discussion of treatment choices. No major barriers to understanding were identified. The patient expressed understanding and agreement with the above treatment plan. The patient was made aware they should contact our office by phone for worsening of their current condition, the appearance of new symptoms, or with any questions or concerns. Compliance is encouraged with any medications and follow up testing that is ordered. It is a privilege to be allowed the opportunity to participate in? your urological care.? Again, if you have any questions or concerns If you have any questions or concerns please do not hesitate to contact me. The office is [phone]. This note is constructed using voice recognition software. While every effort has been made to ensure accuracy deputy district customs director errors may have been included. Yours sincerely, ACE Jeffers Coding Level of Care Code Est Pt Level 3 (32605) Diagnoses Renal cyst N28.1 OAB (overactive bladder) N32.81 CPT Codes Post Residual Void - PVR CPT Code: 43892-[place] Void Residual by ultrasound ([id number])
== END 2023-01-14 12:14 | disposition home or self-care (01) ==
PROVIDERS: PCP General Practice; Visit Provider Nurse Practitioner Family
DX: N28.1 Cyst of kidney, acquired (principal); N32.81 Overactive bladder; Z13.9 Encounter for screening, unspecified
CPT/HCPCS: 99213

== ENCOUNTER → 2023-01-14 11:46 | Outpatient (BNVA) | payer OTHER, SELFPAY | PROVIDERS: PCP General Practice; Visit Provider Nurse Practitioner Family | DX: N28.1 Cyst of kidney, acquired (principal); N32.81 Overactive bladder | CPT/HCPCS: 51798; 81003; 99212 ==

== ENCOUNTER 2023-02-07 10:53 | Outpatient (REF) | payer OTHER, SELFPAY ==
--- NOTE | ~2023-02-07 | MM_ITS ---
EXAMINATION: BONE DENSITOMETRY CLINICAL INDICATION: Menopause. Long-term use of systemic steroids. COMPARISON: This is the patient's baseline examination. TECHNIQUE: Using a Viewpoint DXA System (software version: 13.1) manufactured by [employer], dual-energy x-ray absorptiometry was performed of the lumbar spine and left hip. The images are of good technical quality. Summary results are attached. FINDINGS: LEFT FEMUR, NECK: BMD 0.830 g/cm2, Z-score 0.0, T-score -1.5, osteopenia. LEFT FEMUR, TOTAL: BMD 0.891 g/cm2, Z-score 0.4, T-score -0.9, normal. AP SPINE L1-L4: BMD 1.008 g/cm2, Z-score -0.1, T-score -1.4, osteopenia. IDENTIFIED RISK FACTORS: Menopause, hysterectomy, height loss, glucocorticoids (chronic), anticonvulsant, bilateral oophorectomy. HISTORY OF FRACTURE: None listed. MEDICATIONS: Vitamin D. MM/XR DEXA axial skeleton IMPRESSION: 1. DIAGNOSIS: Osteopenia based on the lowest T-score value of -1.5 in the femoral neck applying World Health Organization criteria. 2. 10-YEAR FRACTURE RISK PREDICTION, FRAX: Major osteoporotic fracture (clinical spine, forearm, hip or shoulder) 8.7%. Hip fracture 1.4%. 3. Treatment Recommendations: NOF guidelines recommend consideration for treatment in postmenopausal women and men age 50 and older presenting with the following: -A hip or vertebral (clinical or morphometric) fracture. -T-score less than or equal to -2.5 at the femoral neck or spine after appropriate evaluation to exclude secondary causes. -Low bone mass at the hip or spine and a 10-year fracture probability by FRAX of greater than or equal to 3% for hip fracture or greater than or equal to 20% for major osteoporotic fracture based on the [place] adapted WHO algorithm. 4. Other Recommendations: All treatment decisions require clinical judgment and consideration of individual patient factors, including patient preferences, comorbidities, previous drug use, risk factors not captured in the FRAX model (e.g. frailty, falls, vitamin D deficiency, increased bone turnover, interval significant decline in bone density) and possible under or overestimation of fracture risk by FRAX. Additional medical evaluation for secondary cause of low bone mineral density may be appropriate. FUTURE SCAN RECOMMENDATION: People with diagnosed cases of osteoporosis or at high risk for fracture should have regular bone mineral density tests. For patients eligible for Medicare, routine testing is allowed once every 2 years. The testing frequency can be increased to one year for patients who have rapidly progressing disease, those who are receiving or discontinuing medical therapy to restore bone mass, or have additional risk factors.
== END 2023-02-07 10:54 | disposition home or self-care (01) ==
LOC: HO.MAMMO 10:53
PROVIDERS: PCP General Practice; Visit Provider General Practice
DX: Z13.820 Encounter for screening for osteoporosis (principal); Z78.0 Asymptomatic menopausal state; Z79.52 Long term (current) use of systemic steroids
CPT/HCPCS: 77080

== ENCOUNTER 2023-03-14 10:51 | Outpatient (REF) | payer OTHER, SELFPAY ==
[2023-03-14 11:05] LABS: MANUAL DIFF FLAG NO
[2023-03-14 11:11] LABS: Basophils Absolute Auto 0.1 X10*3/uL (0.0-0.2); Basophils Percent Auto 0.6 % (0-2); Eosinophils Absolute Auto 0.1 X10*3/uL (0.0-0.4); Hematocrit 39.7 % (37.0-47.0); Imm Gran Abs Auto 0.04 X10*3/uL (0.00-0.03); Imm Gran Pct Auto 0.4 % (0.0-0.4); Lymphocytes Absolute Auto 2.6 X10*3/uL (1.2-4.9); Lymphocytes Percent Auto 27.7 % (20-40); Mean Corpuscular HGB Conc 32.7 g/dl (31.0-35.0); Mean Corpuscular Hemoglobin 32.4 pg (27.0-33.0); Mean Platelet Volume 11.4 fL (9.4-12.3); Monocytes Absolute Auto 0.6 X10*3/uL (0.1-1.2); Monocytes Percent Auto 6.3 % (2-11); Platelet Count 233 X10*3/uL (160-400); Red Blood Count 4.01 X10*6/uL (4.20-5.50); Red Cell Distribution Width 12.8 % (11.0-16.0); White Blood Count 9.4 X10*3/uL (4.8-10.8)
[2023-03-14 11:49] LABS: Erythrocyte Sedimentation Rate 16 MM/HR (0-20)
[2023-03-14 11:54] LABS: Alanine Aminotransferase 13 U/L (0-31); Alkaline Phosphatase 64 U/L (39-117); Anion Gap 12 (12-20); Aspartate Amino Transferase 16 U/L (5-31); Bilirubin Direct 0.2 mg/dL (0.0-0.5); Bilirubin Total 0.4 mg/dL (0.0-1.0); Blood Urea Nitrogen 16 mg/dL (9-16); Calcium 9.7 mg/dL (8.4-10.2); Carbon Dioxide 33 mmol/L (22-29); Chloride 102 mmol/L (96-108); Estimated Glomerular Filt Rate > 60; Glucose Random 120 mg/dL (60-115); Potassium 4.1 mmol/L (3.3-5.1); Sodium 143 mmol/L (135-145); Total Protein 7.2 g/dL (6.5-8.0)
== END 2023-03-14 10:52 | disposition home or self-care (01) ==
LOC: HO.XRAY 10:51
PROVIDERS: PCP General Practice; Visit Provider Hospitalist
DX: J84.9 Interstitial pulmonary disease, unspecified (principal)
CPT/HCPCS: 36415; 71046; 80048; 80076; 85025; 85652

== ENCOUNTER 2023-03-18 11:01 | Outpatient (AMB) | payer OTHER, SELFPAY ==
--- NOTE | 2023-03-18 11:17 | A.OFFVIS_ITS ---
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 She also has obstructive airway disease and has been on short-acting beta agonist. She has been having increasing shortness of breath. And she has been using her rescue inhaler with partial response. At this point will start her on a maintenance inhaler. In addition to that in view of her pulmonary hypertension will go ahead and request an overnight oximetry to assess her for nocturnal hypoxia. She does have any evidence of any nocturnal hypoxia will be imperative to start her on oxygen supplementation to treat her underlying pulmonary hypertension. 12/24/2021 the patient is here for a pulm onary follow-up visit. 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 She also did not have her blood work done. We did arrange for her to have an overnight oximetry but not clear, but she did not have it done. At this point the patient has been having issues with memory lapse. She states that she woke up this morning known she had an appointment then she went to the bank and she forget totally about the appointment. Explained to her that untreated sleep apnea can result in issues with memory loss. We did review her sleep study from 2018 demonstrating severe sleep apnea with an AHI of 27 events per hour. She also has significant desaturations. Therefore I did explain to her the importance of going back on PAP therapy. I will request an in-lab study in view of her hypoxia and significant daytime drowsiness. Her [place] score is elevated 03/16. The patient also has cardiovascular risk factors including pulmonary hypertension in addition to that she did have her chest x-ray demonstrating coarse interstitial markings suggesting pulmonary fibrosis. Her examination also consistent with bilateral crackles which is concerning for pulmonary fibrosis. Will go ahead and request a CT scan at this time. The patient also on a PFTs. We did go over the Symbicort inhaler with her enough office. I also gave her a spacer. She was able to use admission mouth 2 is she feels more comfortable using it now will start using it. She does have diabetes starting her on prednisone will be very difficult. Will see how she response to the Symbicort and if she has any issues she always knows to call the office. At the end of the office visit we did go for brief Stroll and her oxygen maintain between 93-94% with activity. Her heart rate did increase to about 115-120. The patient does not qualify for oxygen at this time. However, if she has further progression of her underlying interstitial lung disease then this may become more likely. 02/25/2022 the patient is here for pulmonary follow-up visit. The patient continues to complaint of cough and shortness of breath. [id number] altaf rity. We did review her CT scan of the chest demonstrating reticular changes primarily at the periphery and also at the bases. this consistent with pulmonary fibrosis and interstitial lung disease. Will go ahead and request blood work assessing for connective tissue conditions and inflammatory conditions that can result in this picture. Ultimately, we have to make sure followed closely to make sure it is not progressive in nature. If it is progressive then UIP pattern needs to be considered. Pulmonary function studies also suggestive of a moderate restriction consistent with significant restrictive lung disease secondary to the pulmonary fibrosis. At this point will go ahead and await her sleep study. She continues to have daytime drowsiness and also has an elevated [place] score of 11/24. The patient also has underlying pulmonary hypertension. Therefore she undergo blood work and also undergo her sleep study and will follow-up in the next couple months. 04/29/2022 the patient is here for a pulmonary follow-up visit. Recently she went to the ER because of worsening respiratory symptoms and cough. There she had a chest x-ray without any significant changes show she does have the reticulonodular opacities her interstitial lung disease. Since we last spoke the patient was supposed to undergo blood work and she has not done as of yet. In addition to that the patient did not feel healthy enough to have a sleep study. Therefore she did not have that either. The patient is frustrated that she is no better. Although she also did not follow through with the recom mendations. She was provided with prednisone in the hospital and did help her symptoms. She has completed the course at this time. She also finished a course of antibiotics. Again, she has significant interstitial lung disease. Her total lung capacity is decreased consistent with chronic restrictive lung disease from the interstitial lung disease. The etiologies still is unclear. Patient understands the blood work to help try to clear up the etiology of the fibrosis. Indeed, if this fibrosis is progressive then anti fibrotic agents will be warranted. Since the patient is developing significant cough and shortness of breath we did taken for brief walking oximetry in the patient was able to maintain a pulse ox in the low 90s. Therefore the patient does not qualify for oxygen. based on her ongoing symptoms will go ahead and put her on a small dose of prednisone to see if we can stabilize her condition as we move further. The patient understands the importance of the blood work that she needs to get prior to the next visit. In addition to that we briefly spoke about lung biopsies. The patient is reluctant to undergo any invasive or semi- invasive interventions at this time. 05/20/2022 the patient is here for a pulmonary follow-up visit. Overall the patient has been feeling a little better. She is tolerating the prednisone. We did review all her blood work. No evidence of any connective tissue conditions or hyper sensitivity reaction to we can identify. Therefore, no clear etiology for her interstitial lung disease. We talked about diagnostic interventions which is biopsies. However, explained to the patient that this may not necessarily change the overall treatment plan. Therefore will continue to assess the response to prednisone. I am hopeful that she response. we can better assess this will be repeating her imaging studies. In the meantime she continues to cough. The benzo night work great for her cough. Although the not covered. We did look for different alternatives including going with good Rx to see if she can get him on a lower walker. These probably be the best option. Also, we did talk about the if there is any evidence of any progression of her pulmonary fibrosis to suggest progressive idiopathic pulmonary fibrosis then we can consider antifibrotic therapies at that time. 06/18/2022 the patient is here for a pulm onary follow-up visit. The patient overall is feeling better. She is is bonding well to the prednisone. Only taking 10 mg. Her prescription for the Benzonate is with still that [employer] and she did take a very low walker which she is happy about. Her sugars are reasonable staying in the normal range. We did talk about if there is any worsening of the interstitial lung disease suggesting progressive pulmonary fibrosis then we will start Ofev. While give her some reading material in order for her to read up on it. I do believe that she will benefit from the medication if there is any evidence of progression of disease. She does continue to have issues with her sleep. She does wake up tired with headaches. Will perform an overnight oximetry to make sure that she does not need oxygen supplementation. In the meantime she continues with respiratory therapy with good effect. She does continue the Bentson eyes again with very good response improving her cough overall. 07/29/2022 the patient is here for pulmona ry follow-up visit. She is feeling a little better on the prednisone and also continues on the Bentson eyes with good effect. Her cough is overall better. She still has some dyspnea on exertion with activity which is mild severity. We did review her last CT scan of the chest that she had in June 2022 demonstrating interval worsening of the interstitial lung disease as well as evidence of scarring and some evidence of ground-glass opacities. She therefore, based on the worsening disease I am concerned that she continued to have progressive symptoms. At the [facility] health systemssive interstitial lung disease with pulmonary fibrosis I do believe that she will be a good candidate for Ofev. Will go ahead and request a prior approval from her insurance company. She is in the meantime she continues on the prednisone. She is concerned about the side effects of prednisone but I do believe that she needs additional anti-inflammatory effect due to her ongoing symptoms and findings. Therefore, will go ahead and start him on CellCept. We did talk about potential biopsy. The patient is going to think about it. Will try these medication changes at this time. However, if the patient is no better or there is any worsening of disease then will have to further consider a biopsy. If the patient does need a biopsy and wedge biopsy will be passed 10/29/2022 the patient is here for pulmonary follow-up visit. She continues to have cough and also shortness of breath with activity. I did had sent her prescription for mycophenolate when she was last here. 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 He has been now about 3 months. Explained to her that it appears that she has interval worsening of her interstitial lung disease. She also has diabetes was difficult to increase her prednisone. Mycophenolate will be a very good option in order to decrease the inflammation and hopefully decrease the risk of further scarring. The patient also reviewed the CT scan with me. I did show her the CT scan she had back in 2021 and a CAT scan of 2022 demonstrating worsening of disease. The patient will start the mycophenolate at this time. I did write it down for her so she can start with 1 daily and then increase it to twice a day. In November she is going to come in and get x-rays and also blood work and will follow-up with her at that time. Will plan to repeat her PFTs sometime in February. Also we talked about Ofev. This is a medication we have sent to the pharmacy. We did send a script but not clear what happened as far as the process. I did reach out to our staff in the office to try to get an update of what occurred with the medication Request. Again I reviewed the blood work that we did with her. No evidence of any connective tissue disease. No evidence of any hypersensitivity pneumonitis. Her scarring is primarily at the base suggesting the possibility of UIP versus I fibrotic NSIP. Will see her response to therapy. If the patient does not have any significant response to the therapy then will consider surgical biopsy. 12/20/2022 the patient is here for a pulmonary follow-up visit. The patient c ontinues to be about the same. She does have the frequent constant cough. It is nonproductive in nature. Responds well to the current medications. She also has shortness of breath with activity. Does not feel like she is getting any worse from the last visit. The patient did have a repeat chest x-ray demonstrating some interval worsening though. Therefore she understands that this interstitial lung disease may indeed be progressive which is a concern. She has been on mycophenolate although she is only taking 1 tablet daily with which she was supposed to be taking more. Therefore I did write down the instructions on how she is to take the mycophenolate. She is going to titrate up to hopefully 2 tablets b.i.d.. Blood work was reassuring without any evidence of any organ toxicity. When she reaches she is the 2 g a day does she will go ahead and have additional blood work. When she is on 2 g the patient will also cut down on the prednisone. We did talk about Ofev has good option for her specially if indeed this appears to be a per aggressive interstitial fibrosis. Therefore, will see how she responds to this current increase medications she will have a repeat chest x-ray and if there is any worsening of symptoms and or imaging studies then will go ahead and start Ofev. 03/18/2023 the patient is here for a pul monary follow-up visit. Overall the patient has been doing well. Her cough is overall better. She still has dyspnea on exertion mild in severity. She continues to take the prednisone 10 mg daily and also was able to increase the mycophenolate now taking 1000 mg in the morning and 500 mg at nighttime. She did have a chest x-ray which I personally reviewed. I will see any significant changes although which still waiting for the final read. The patient has not started the also bibasilar yet. I am unsure if it was not approved by the insurance. At this point will do is we will go ahead and maximize her mycophenolate to 1000 mg twice a day and also she can decrease the prednisone some because of her history of diabetes. Will plan to repeat a CT scan in June closer to her last CT scan to see if there is any progression of the interstitial lung disease. If there is any progression of the eye LD then starting her on Ofev will be very important. If the patient has any worsening symptoms prior to the next visit she will call the office for an earlier assessment. Otherwise will follow-up then. [facility] Medical History (Reviewed 01/14/23 @ 20:[address] [facility] [place]) Chronic restrictive lung disease Abnormal chest x-ray ILD (interstitial lung disease) Memory loss COPD (chronic obstructive pulmonary disease) OAB (overactive bladder) Renal cyst History of postoperative nausea and vomiting Diabetes Insomnia JAREK (obstructive sleep apnea) Pulmonary arterial hypertension Bibasilar crackles Dyspnea Surgical History H/O esophagogastroduodenoscopy History of hernia repair History of colonoscopy Family History Father Hx of diabetes insipidus Mother Hx of diabetes insipidus Social History Household Members: Family Alcohol intake: never Patient Tobacco Use Status: Never used Tobacco Years Smoked: 1yr Second Hand Smoke Exposure: No Review of Systems Const Denies fatigue, Denies fever(s), Denies night sweats, Denies poor appetite and Denies weight loss Eyes Details: glasses Reports requires corrective lenses ENT Reports Normal hearing present, Denies dental pain, Denies dysphagia, Denies hearing loss, Denies mouth pain, Denies odynophagia, Denies throat swelling, Denies tongue swelling and Reports other (Dentition adequate) Card Reports dyspnea on exertion Resp Reports cough and Reports dyspnea on exertion GI Denies abdominal pain, Denies melena, Denies bloating, Denies hematochezia, Denies constipation, Denies GI cramping, Denies dysphagia, Denies excessive flatus, Denies early satiety, Denies heartburn, Denies diarrhea, Denies nausea, Denies odynophagia, Denies vomiting and Denies hematemesis Skin/Breast Denies pruritus, Denies lesions, Denies rash and Denies jaundice Neuro Reports Normal hearing present and Denies Abnormal speech present Endo Denies fatigue Aller/Immun Denies throat swelling and Denies tongue swelling Physical Exam Vital Signs: Last Vital Signs Pulse 80 03/18/23 11:19 Pulse Ox 95 03/18/23 11:19 Oxygen Delivery Method Room Air 03/18/23 11:19 BMI result Body Mass Index 32.2 Const General: alert HEENT General nose exam: Abnormal external nose present and Nasal discharge present Neck Neck: Yes normal visual inspection, Yes full ROM and Yes no lymphadenopathy Chest Chest palpation & inspection: normal inspection of the chest Resp Auscultation: rales bilateral and diminished lung sounds Cardio Rate: regular rate Rhythm: regular rhythm Heart sounds: S1 normal heart sound present and S2 normal heart sound present GI Palpation (GI): Soft to palpation and nontender Auscultation: normal bowel sounds General: Yes no CVA tenderness Back/Spine/Pelvis Back: no CVA tenderness Skin General skin exam: rashes and/or lesions noted Neuro Cranial nerves: Yes Normal hearing present Speech: No Abnormal speech present Extrem General: No clubbing, No cyanosis and Yes edema Assessment & Plan Assessment & Plan (1) Pulmonary arterial hypertension: Comment: secondary Code(s): I27.21 - Secondary pulmonary arterial hypertension (2) COPD (chronic obstructive pulmonary disease): Code(s): J44.9 - Chronic obstructive pulmonary disease, unspecified Qualifiers: COPD type: chronic bronchitis Chronic bronchitis type: simple Qualified Code(s): J41.0 - Simple chronic bronchitis (3) ILD (interstitial lung disease): Comment: progressively worsening based on CT chest Code(s): J84.9 - Interstitial pulmonary disease, unspecified (4) Chronic restrictive lung disease: Code(s): J98.4 - Other disorders of lung Plan continue symbicort WILFRIDO as needed change Prednisone 10mg every other day increase cellcept, up to 2gm/day re-evaluate OFEV for progressive fibrosis, should start if worsening fibrosis on repeat CT chest cough medication: benzonates, rx with [facility]rx repeat CT chest to assess progression of disease 06/2022 Sleep with HOB elevated F/U 2 months with CXR and labs Orders: Orders CT chest wo IV con 06/20/23 J84.9 - Interstitial pulmonary disease, unspecified Coding Level of Care Code Est Pt Level 4 (89712) Diagnoses Pulmonary arterial hypertension I27.21 Simple chronic bronchitis J41.0 COPD type: chronic bronchitis Chronic bronchitis type: simple ILD (interstitial lung disease) J84.9 Chronic restrictive lung disease J98.4 Time Spent (min) 17
[2023-03-18 11:19] VITALS: PULSE 80; O2SAT 95; BMI 32.2
== END 2023-03-18 11:44 | disposition home or self-care (01) ==
PROVIDERS: PCP General Practice; Visit Provider Hospitalist
DX: I27.21 Secondary pulmonary arterial hypertension (principal); J41.0 Simple chronic bronchitis; J84.9 Interstitial pulmonary disease, unspecified; J98.4 Other disorders of lung
CPT/HCPCS: 99214

== ENCOUNTER → 2023-03-18 11:01 | Outpatient (BNVA) | payer OTHER, SELFPAY | PROVIDERS: PCP General Practice; Visit Provider Hospitalist | DX: J84.9 Interstitial pulmonary disease, unspecified (principal); J98.4 Other disorders of lung; J41.0 Simple chronic bronchitis; I27.21 Secondary pulmonary arterial hypertension | CPT/HCPCS: 99212 ==

== ENCOUNTER 2023-04-10 10:24 | Outpatient (AMB) | payer OTHER, SELFPAY ==
[2023-04-10 10:30] VITALS: BP 148/67; PULSE 72; BMI 33.6
--- NOTE | 2023-04-10 10:30 | MHC.OFFVIS ---
Intake Vital Signs 04/10/23 10:30 Height 5 ft Weight 171 lb 15.369 oz BMI 33.6 BP 148/67 H Blood Pressure Location Lt brachial Position Sitting Pulse 72 Intake Visit Reasons: 6 month follow up Intake Note: Patient presents to in office visit today in 6 months follow up abdominal pain. CC: Patient c/o diarrhea for about a week, left sided abdominal pain with radiation to her back. Denies other GI symptoms. 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 She continues on omeprazole 20mg bid, simethicone and creon. ROV 6 mos. (2) Abdominal bloating: Code(s): R14.0 - Abdominal distension (gaseous) Medications: Refilled wqgdel-byoqofma-qg ylase 24,000-76,00 0 -120,000 unit (C reon) administe r with meals and/o r snacks 1 cap PO QID 120 c aps 6RF 30 days K58.9 - Irritable bowel syndrome wit hout diarrhea omeprazole 20 mg PO BID 60 ca ps 6RF K21.9 - Gastro-eso phageal reflux dis ease without esoph agitis simethicone 180 mg PO BID 60 c aps 6RF R14.0 - Abdominal distension (gaseou s) TODAY'S VISIT Erich Beltran She tells me that she has been ?so-so. ? I ask her what is not going so well and she tells me that she has had frequent episodes of diarrhea. She has especially had diarrhea for the past week with pain that tends to start under the left ribcage radiates to the back and down the left side of the abdomen. I ask if this is a new onset of diarrhea with any fevers chills nausea vomiting and she denies this. She says she has had diarrhea ?ever since I had my gallbladder out. ? This is news to me! We did not have this anywhere in her medical history that she was status post cholecystectomy! With this I ask her if she still taking her Creon and she says ?sometimes. ? apparently the difficulty lives in the 4 times a day dosing regimen. I advised her that study showed that it can be just as effective taking 2 tablets twice a day and she agrees that this would work better for her. Because she is probably over producing bile will also add 1 Carafate at noon to isolate from her other medications. We can titrate the Carafate as needed. She continues on her omeprazole twice a day with good control of her GERD. She does admit to me that she likes to drink grapefruit juice usually 1 glass in the morning and ask if this is a problem. I explained to her that grapefruit juice has many good health benefits despite its high acidity. If she is tolerating it I do not have her problem with this. I would rather see patients cut out drinks that are high in citric acid that have no nutritional value such as soda and coffee. She does not drink soda and she only drinks 1 cup of coffee in the morning. I want to see her back in 2 weeks and if her diarrhea is not resolving then will consider stool studies for infectious etiology, but the patient does not feel that this is any different from the diarrhea she is experienced over the past 20 years. This is how long it has been since her gallbladder was removed. Return office visit in 2 weeks. [facility] Medical History (Updated 04/10/23 @ 10:52 by ERIC Ma) Chronic restrictive lung disease Abnormal chest x-ray ILD (interstitial lung disease) Memory loss COPD (chronic obstructive pulmonary disease) OAB (overactive bladder) Renal cyst History of postoperative nausea and vomiting Diabetes Insomnia JAREK (obstructive sleep apnea) Pulmonary arterial hypertension Bibasilar crackles Dyspnea Surgical History (Updated 04/10/23 @ 10:52 by ERIC Ma) History of cholecystectomy H/O esophagogastroduodenoscopy History of hernia repair History of colonoscopy Family History Father Hx of diabetes insipidus Mother Hx of diabetes insipidus Social History Household Members: Family Alcohol intake: never Patient Tobacco Use Status: Never used Tobacco Years Smoked: 1yr Second Hand Smoke Exposure: No Review of Systems Const Denies fatigue, Denies fever(s), Denies night sweats, Denies poor appetite and Denies weight loss Eyes Details: glasses Reports requires corrective lenses ENT Reports Normal hearing present, Denies dysphagia, Denies odynophagia, Denies throat swelling and Denies tongue swelling Card Reports no additional complaints Resp Reports no additional complaints GI Reports abdominal pain, Denies melena, Denies bloating, Denies hematochezia, Denies constipation, Reports GI cramping, Denies dysphagia, Denies excessive flatus, Denies early satiety, Reports heartburn, Reports diarrhea, Denies nausea, Denies odynophagia, Denies vomiting and Denies hematemesis Reports flank pain Musc Reports back pain Skin/Breast Denies pruritus, Denies lesions, Denies rash and Denies jaundice Neuro Reports Normal hearing present and Denies Abnormal speech present Endo Denies fatigue Aller/Immun Denies throat swelling and Denies tongue swelling Physical Exam Vital Signs: Last Vital Signs Pulse 72 04/10/23 10:30 BP 148/67 H 04/10/23 10:30 BMI result Body Mass Index 33.6 Const General: cooperative, no acute distress, well developed and well groomed Nutritional Appearance: well nourished and obese Orientation/consciousness: oriented to person, oriented to place and oriented to time Limitations: language barrier HEENT Head: Yes normocephalic and Yes atraumatic Eyes General: appearance normal, both eyes and all related structures Pupils: Equal, round and reactive pupils present Neck Neck: Yes normal visual inspection and Yes no lymphadenopathy Thyroid: Thyroid normal Resp Effort & Inspection: normal respiratory effort and able to speak in complete sentences Auscultation: clear to auscultation bilaterally Cardio Rate: regular rate Rhythm: regular rhythm Heart sounds: Normal, physiologic split S2 sound present Peripheral pulses: radial pulses present and posterior tibial pulses present GI Inspection: No distended, Yes Abdominal panniculus present and Yes obesity Palpation (GI): Soft to palpation, nontender, no guarding, not rigid and No hepatosplenomegaly present Percussion: Yes normal to percussion Auscultation: normal bowel sounds Rectal Exam - Female: deferred Skin General skin exam: no rashes or lesions noted, turgor normal, skin not dry, no jaundice, No spider nevi and no striae Rashes: no rashes Nails: normal Neuro General: oriented to person, oriented to place and oriented to time Cranial nerves: Yes Equal, round and reactive pupils present and Yes Normal hearing present Speech: No Abnormal speech present Extrem General: Yes normal to inspection, No clubbing, No cyanosis and No edema Psych Appearance: grossly normal and well kempt Mental Status: mental status grossly normal Speech and movement: Normal speech and movement present Affect: normal affect Attitude: cooperative Thought process: Normal thought process present and not confabulating Thought content: Normal thought content present Insight: Limited insight present (Psych) Judgement: Limited judgement present (Psych) Assessment & Plan Assessment & Plan (1) Post-cholecystectomy syndrome: 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 (2) GERD (gastroesophageal reflux disease): Code(s): K21.9 - Gastro-esophageal reflux disease without esophagitis Plan [place] #Grisel Live She tells me that she has been ?so-so. ? I ask her what is not going so well and she tells me that she has had frequent episodes of diarrhea. She has especially had diarrhea for the past week with pain that tends to start under the left ribcage radiates to the back and down the left side of the abdomen. I ask if this is a new onset of diarrhea with any fevers chills nausea vomiting and she denies this. She says she has had diarrhea ?ever since I had my gallbladder out. ? This is news to me! We did not have this anywhere in her medical history that she was status post cholecystectomy! With this I ask her if she still taking her Creon and she says ?sometimes. ? apparently the difficulty lives in the 4 times a day dosing regimen. I advised her that study showed that it can be just as effective taking 2 tablets twice a day and she agrees that this would work better for her. Because she is probably over producing bile will also add 1 Carafate at noon to isolate from her other medications. We can titrate the Carafate as needed. She continues on her omeprazole twice a day with good control of her GERD. She does admit to me that she likes to drink grapefruit juice usually 1 glass in the morning and ask if this is a problem. I explained to her that grapefruit juice has many good health benefits despite its high acidity. If she is tolerating it I do not have her problem with this. I would rather see patients cut out drinks that are high in citric acid that have no nutritional value such as soda and coffee. She does not drink soda and she only drinks 1 cup of coffee in the morning. I want to see her back in 2 weeks and if her diarrhea is not resolving then will consider stool studies for infectious etiology, but the patient does not feel that this is any different from the diarrhea she is experienced over the past 20 years. This is how long it has been since her gallbladder was removed. Return office visit in 2 week Medications: New sucralfate (Carafate) 1 g PO QNOON 30 tabs 6RF K21.9 - Gastro-esophageal reflux disease without esophagitis, K91.5 - Postcholecystectomy syndrome, Z90.49 - Acquired absence of other specified parts of digestive tract Changed From pdixuz-pvurrpjs-myrstuw 24,000-76,000 -120,000 unit (Creon) administer with meals and/or snacks 1 cap PO QID 30 days 120 caps 6RF K58.9 - Irritable bowel syndrome without diarrhea To axkzpl-ltfqbnfn-uctrfbi 24,000-76,000 -120,000 unit (Creon) administer with meals and/or snacks 2 caps PO BID 30 days 120 caps 6RF K58.9 - Irritable bowel syndrome without diarrhea Refilled omeprazole 20 mg PO BID 60 caps 6RF K21.9 - Gastro-esophageal reflux disease without esophagitis simethicone 180 mg PO BID 60 caps 6RF R14.0 - Abdominal distension (gaseous) Coding Level of Care Code Est Pt Level 3 (99727) Diagnoses Post-cholecystectomy syndrome K91.5 GERD (gastroesophageal reflux disease) K21.9
== END 2023-04-10 10:58 | disposition home or self-care (01) ==
PROVIDERS: PCP General Practice; Visit Provider Nurse Practitioner
DX: K91.5 Postcholecystectomy syndrome (principal); K21.9 Gastro-esophageal reflux disease without esophagitis
CPT/HCPCS: 99213

== ENCOUNTER → 2023-04-10 10:24 | Outpatient (BNVA) | payer OTHER, SELFPAY | PROVIDERS: PCP General Practice; Visit Provider Nurse Practitioner | DX: K91.5 Postcholecystectomy syndrome (principal); K21.9 Gastro-esophageal reflux disease without esophagitis | CPT/HCPCS: 99212 ==

== ENCOUNTER 2023-05-15 08:58 | Outpatient (REF) | payer OTHER, SELFPAY ==
--- NOTE | ~2023-05-15 | XR_ITS ---
EXAMINATION: XR THORACOLUMBAR SPINE CLINICAL INFORMATION: Pain COMPARISON: 11/13/2020 TECHNIQUE: 2 views of the thoracic spine FINDINGS: No acute fracture or dislocation. Vertebral body heights are preserved. Flowing anterior vertebral body osteophytes may reflect diffuse idiopathic skeletal hyperostosis. XR/XR thoracic spine 2V IMPRESSION: Flowing anterior vertebral body osteophytes may reflect diffuse idiopathic skeletal hyperostosis.
--- NOTE | ~2023-05-15 | XR_ITS ---
EXAMINATION: XR chest 2V CLINICAL INFORMATION: Reason for Exam M54.6 - Pain in thoracic spine COMPARISON: Chest radiograph 03/14/2023 TECHNIQUE: 2 views of the chest FINDINGS: Clear lungs. No pneumothorax or pleural effusion. Unchanged cardiomediastinal silhouette. Asymmetric elevation of the right hemidiaphragm, similar to prior study. XR/XR chest 2V Impression: Asymmetric elevation of the right hemidiaphragm, similar to prior study.
[2023-05-15 11:39] LABS: Appearance Urine Clear; Color Urine Dark Yellow; Glucose Urine UA Negative (Negative); Leukocyte Esterase Urine Negative (Negative); Nitrite Urine Negative (Negative); PH 5.5 (5.0-9.0); Specific Gravity - Urine 1.025 (1.005-1.025); Urine Blood Negative (Negative); Urine Ketones Trace mg/dL (Negative); Urine Protein Negative (Neg-Trace)
== END 2023-05-15 08:59 | disposition home or self-care (01) ==
LOC: HO.XRAY 08:58
PROVIDERS: PCP General Practice; Visit Provider Nurse Practitioner
DX: R10.32 Left lower quadrant pain (principal); R07.9 Chest pain, unspecified; M54.6 Pain in thoracic spine; K91.5 Postcholecystectomy syndrome; K21.9 Gastro-esophageal reflux disease without esophagitis; R14.0 Abdominal distension (gaseous)
CPT/HCPCS: 71046; 72070; 81003; 99212

== ENCOUNTER 2023-05-15 08:58 | Outpatient (AMB) | payer OTHER, SELFPAY ==
--- NOTE | 2023-05-15 09:27 | A.OFFVIS_ITS ---
Intake Vital Signs 05/15/23 09:35 Height 5 ft Weight 169 lb 5 oz BMI 33.1 BP 144/74 H Blood Pressure Location Lt brachial Position Sitting Pulse 84 Intake Visit Reasons: 2 Weeks Follow up Intake Note: Patient follow for abdominal pain. Patient cc: LLQ pain with bloating. Denies any other GI issues. Top Ironer Required: Yes Top Ironer Name: [facility] [place] Accompanied by: Self / Same As Patient Allergies morphine [MORPHINE] Allergy (Mild, Verified 05/30/23 10:13) NAUSEA, VOMITING, DIZZINESS, HOT FLASHES lactose Adverse Reaction (Unknown, Verified 05/30/23 10:13) GI upset HPI 2 Weeks Follow up HPI Details Assessment & Plan (1) Post-cholecystectomy syndrome: 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 (2) GERD (gastroesophageal reflux diseas e): Code(s): K21.9 - Gastro-esophageal reflux disease without esophagitis Plan [place] #Grisel Live She tells me that she has been ?so-so. ? I ask her what is not going so well and she tells me that she has had frequent episodes of diarrhea. She has especially had diarrhea for the past week with pain that tends to start under t he left ribcage radiates to the back and down the left side of the abdomen. I ask if this is a new onset of diarrhea with any fevers chills nausea vomiting and she denies this. She says she has had diarrhea ?ever since I had my gallbladder out. ? This is news to me! We did not have this anywhere in her medical history that she was status post cholecystectomy! With this I ask her if she still taking her Creon and she says ?sometimes. ? apparently the difficulty lives in the 4 times a day dosing regimen. I advised her that study showed that it can be just as effective taking 2 tablets twice a day and she agrees that this would work better for her. Because she is probably over producing bile will also add 1 Carafate at noon to isolate from her other medications. We can titrate the Carafate as needed. She continues on her omeprazole twice a day with good control of her GERD. She does admit to me that she likes to drink grapefruit juice usually 1 glass in the morning and ask if this is a problem. I explained to her that grapefruit juice has many good health benefits despite its high acidity. If she is tolerating it I do not have her problem with this. I would rather see patients cut out drinks that are high in citric acid that have no nutritional value such as soda and coffee. She does not drink soda and she only drinks 1 cup of coffee in the morning. I want to see her back in 2 weeks and if her diarrhea is not resolving then will consider stool studies for infectious etiology, but the patient does not feel that this is any different from the diarrhea she is experienced over the past 20 years. This is how long it has been since her gallbladder was removed. Return office visit in 2 week Medications: New sucralfate (Carafa te) 1 g PO QNOON 30 t abs 6RF K21.9 - Gastro-eso phageal reflux dis ease without esoph agitis, K91.5 - Po stcholecystectomy syndrome, Z90.49 - Acquired absence of other specified parts of digestiv e tract Changed From qmwkmv-hiuzthaa-eo ylase 24,000-76,00 0 -120,000 unit (Nic gallardo) administe r with meals and/o r snacks 1 cap PO QID 30 d ays 120 caps 6RF K58.9 - Irritable bowel syndrome wit hout diarrhea To vxnkqg-jfuxgyqd-tx ylase 24,000-76,00 0 -120,000 unit (C reon) administe r with meals and/o r snacks 2 caps PO BID 30 days 120 caps 6RF K58.9 - Irritable bowel syndrome wit hout diarrhea Refilled omeprazole 20 mg PO BID 60 c aps 6RF K21.9 - Gastro-eso phageal reflux dis ease without esoph agitis simethicone 180 mg PO BID 60 caps 6RF R14.0 - Abdominal distension (gaseou s) . TODAY'S VISIT [place] #Xiao Live She and her whole household had COVID, Her diarrhea is improved but she still has pain that tends to start under the left ribcage radiates to the back and down the left side of the abdomen. This is more effected by movement and the pain is sharp when she moves certain ways. It does not seem to be r/t eating or BM's. Given her recent COVID, I think CXR is prudent to r/o any occult lung infections and XR of thoracic spine. UA to try to see if renal calculus is a possibility as her sx don't correlate well with GI causes. So she is currently taking Carafate, omeprazole, and simethicone. ROV 2 weeks. [facility] Medical History (Updated 05/30/23 @ 10:45 by ERIC Ma) Left flank pain Thoracic spine pain Abnormal chest x-ray Lower abdominal pain Renal cyst JAREK (obstructive sleep apnea) Colon cancer screening Hepatic steatosis JAREK (obstructive sleep apnea) Bibasilar crackles Dyspnea Chronic restrictive lung disease ILD (interstitial lung disease) Memory loss COPD (chronic obstructive pulmonary disease) OAB (overactive bladder) History of postoperative nausea and vomiting Diabetes Insomnia Pulmonary arterial hypertension Surgical History History of cholecystectomy H/O esophagogastroduodenoscopy History of hernia repair History of colonoscopy Family History Father Hx of diabetes insipidus Mother Hx of diabetes insipidus Social History Household Members: Family Alcohol intake: never Patient Tobacco Use Status: Never used Tobacco Years Smoked: 1yr Second Hand Smoke Exposure: No Review of Systems Const Denies fatigue, Denies fever(s), Denies night sweats, Denies poor appetite and Denies weight loss Eyes Details: glasses Reports requires corrective lenses ENT Reports Normal hearing present, Denies dental pain, Denies dysphagia, Denies hearing loss, Denies mouth pain, Denies odynophagia, Denies throat swelling, Denies tongue swelling and Reports other (Dentition adequate) Card Reports no additional complaints Resp Reports no additional complaints GI Details: Reports abdominal pain, Denies melena, Reports bloating, Denies hematochezia, Denies constipation, Denies GI cramping, Denies dysphagia, Denies excessive flatus, Denies early satiety, Reports heartburn, Reports diarrhea, Denies nausea, Denies odynophagia, Denies vomiting and Denies hematemesis Musc Reports back pain Skin/Breast Denies pruritus, Denies lesions, Denies rash and Denies jaundice Neuro Reports Normal hearing present and Denies Abnormal speech present Endo Denies fatigue Aller/Immun Denies throat swelling and Denies tongue swelling Physical Exam Vital Signs: Last Vital Signs Pulse 84 05/15/23 09:35 BP 144/74 H 05/15/23 09:35 BMI result Body Mass Index 33.1 Const General: cooperative, no acute distress, well developed and well groomed Nutritional Appearance: well nourished and obese Orientation/consciousness: oriented to person, oriented to place and oriented to time Limitations: language barrier HEENT Head: Yes normocephalic and Yes atraumatic Eyes General: appearance normal, both eyes and all related structures Pupils: Equal, round and reactive pupils present Neck Neck: Yes normal visual inspection and Yes no lymphadenopathy Thyroid: Thyroid normal Resp Effort & Inspection: normal respiratory effort and able to speak in complete sentences Auscultation: clear to auscultation bilaterally Cardio Rate: regular rate Rhythm: regular rhythm Heart sounds: Normal, physiologic split S2 sound present Peripheral pulses: radial pulses present and posterior tibial pulses present GI Inspection: No distended, No Abdominal panniculus present and Yes obesity Palpation (GI): Soft to palpation, nontender, no guarding, not rigid and No hepatosplenomegaly present Percussion: Yes normal to percussion Auscultation: normal bowel sounds Rectal Exam - Female: deferred Skin General skin exam: no rashes or lesions noted, turgor normal, skin not dry, no jaundice, No spider nevi and no striae Rashes: no rashes Nails: normal Neuro General: oriented to person, oriented to place and oriented to time Cranial nerves: Yes Equal, round and reactive pupils present and Yes Normal hearing present Speech: No Abnormal speech present Extrem General: Yes normal to inspection, No clubbing, No cyanosis and No edema Psych Appearance: grossly normal and well kempt Mental Status: mental status grossly normal Speech and movement: Normal speech and movement present Affect: normal affect Attitude: cooperative Thought process: Normal thought process present and not confabulating Thought content: Normal thought content present Insight: Limited insight present (Psych) Judgement: Limited judgement present (Psych) Assessment & Plan Assessment & Plan (1) Post-cholecystectomy syndrome: 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 (2) GERD (gastroesophageal reflux disease): Code(s): K21.9 - Gastro-esophageal reflux disease without esophagitis (3) Abdominal bloating: Code(s): R14.0 - Abdominal distension (gaseous) (4) Thoracic spine pain: Code(s): M54.6 - Pain in thoracic spine (5) Left-sided chest pain: Code(s): R07.9 - Chest pain, unspecified (6) Left flank pain: Code(s): R10.9 - Unspecified abdominal pain Plan [place] #[employer] She and her whole household had COVID, Her diarrhea is improved but she still has pain that tends to start under the left ribcage radiates to the back and down the left side of the abdomen. This is more effected by movement and the pain is sharp when she moves certain ways. It does not seem to be r/t eating or BM's. Given her recent COVID, I think CXR is prudent to r/o any occult lung infections and XR of thoracic spine. UA to try to see if renal calculus is a possibility as her sx don't correlate well with GI causes. So she is currently taking Carafate, omeprazole, and simethicone. ROV 2 weeks. Orders: Orders XR chest 2V 05/15/23 M54.6 - Pain in thoracic spine, R07.9 - Chest pain, unspecified XR thoracic spine 2V 05/15/23 M54.6 - Pain in thoracic spine, R07.9 - Chest pain, unspecified UA CC w/rflx Micro + Cult 05/15/23 R10.9 - Unspecified abdominal pain Coding Level of Care Code Est Pt Level 3 (21833) Diagnoses Post-cholecystectomy syndrome K91.5 GERD (gastroesophageal reflux disease) K21.9 Abdominal bloating R14.0 Thoracic spine pain M54.6 Left-sided chest pain R07.9 Left flank pain R10.9
[2023-05-15 09:35] VITALS: BP 144/74; PULSE 84; BMI 33.1
== END 2023-05-15 10:00 | disposition home or self-care (01) ==
PROVIDERS: PCP General Practice; Visit Provider Nurse Practitioner
DX: K91.5 Postcholecystectomy syndrome (principal); K21.9 Gastro-esophageal reflux disease without esophagitis; R14.0 Abdominal distension (gaseous); M54.6 Pain in thoracic spine; R07.9 Chest pain, unspecified; R10.9 Unspecified abdominal pain
CPT/HCPCS: 99213

== ENCOUNTER 2023-05-30 10:02 | Outpatient (AMB) | payer OTHER, SELFPAY ==
--- NOTE | 2023-05-30 10:12 | A.OFFVIS_ITS ---
Intake Vital Signs 05/30/23 10:15 Height 5 ft Weight 167 lb 15.876 oz BMI 32.8 BP 114/73 Blood Pressure Location Lt brachial Position Sitting Pulse 73 Intake Visit Reasons: 2 week follow up left flank pain Intake Note: Snehal returns in follow up of left flank pain to discuss X-rays and UA results. CC: Patient c/o left flank pain with radiation to her back. Patient reports having heartburn recently after eating a [place] the day before. 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 ? I ask her what is not going so well and she tells me that she has had frequent episodes of diarrhea. She has especially had diarrhea for the past week with pain that tends to start under the left ribcage radiates to the back and down the left side of the abdomen. I ask if this is a new onset of diarrhea with any fevers chills nausea vomiting and she denies this. She says she has had diarrhea ?ever since I had my gallbladder out. ? This is news to me! We did not have this anywhere in her medical history that she was status post cholecystectomy! With this I ask her if she still taking her Creon and she says ?sometimes. ? apparently the difficulty lives in the 4 times a day dosing regimen. I advised her that study showed that it can be just as effective taking 2 tablets twice a day and she agrees that this would work better for her. Because she is probably over producing bile will also add 1 Carafate at noon to isolate from her other medications. We can titrate the Carafate as needed. She continues on her omeprazole twice a day with good control of her GERD. She does admit to me that she likes to drink grapefruit juice usually 1 glass in the morning and ask if this is a problem. I explained to her that grapefruit juice has many good health benefits despite its high acidity. If she is tolerating it I do not have her problem with this. I would rather see patients cut out drinks that are high in citric acid that have no nutritional value such as soda and coffee. She does not drink soda and she only drinks 1 cup of coffee in the morning. I want to see her back in 2 weeks and if her diarrhea is not resolving then will consider stool studies for infectious etiology, but the patient does not feel that this is any different from the diarrhea she is experienced over the past 20 years. This is how long it has been since her gallbladder was removed. Return office visit in 2 week Medications: New sucralfate (Carafate) 1 g PO QNOON 30 tabs 6RF K21.9 - Gastro-esophageal reflux disease without esophagitis, K91.5 - Postcholecystectomy syndrome, Z90.49 - Acquired absence of other specified parts of digestive tract Changed From ovcvuw-bhwgzrea-cptwshc 24,000-76,000 -120,000 unit (Creon) administer with meals and/or snacks 1 cap PO QID 30 days 120 caps 6RF K58.9 - Irritable bowel syndrome without diarrhea To hvbvlq-gwryibcb-uguqslb 24,000-76,000 -120,000 unit (Creon) administer with meals and/or snacks 2 caps PO BID 30 days 120 caps 6RF K58.9 - Irritable bowel syndrome without diarrhea Refilled omeprazole 20 mg PO BID 60 caps 6RF K21.9 - Gastro-esophageal reflux disease without esophagitis simethicone 180 mg PO BID 60 caps 6RF R14.0 - Abdominal distension (gaseous) THORACIC SPINE XRAY 05/16/23 IMPRESSION: Flowing anterior vertebral body osteophytes may reflect diffuse idiopathic skeletal hyperostosis. TODAY'S VISIT [place] Citizen #Kim Live She is taking 1 carafate a day but still has intermittent diarrhea. She is also taking the creon 2 tabs bid. We will increase the Carafate to 2 a day. She continues on her omeprazole with good control of her GERD. She complains that her left sided pain is still there. I do not know if this is of colon origin via spasm or from radicular back pain from her rather advanced thoracic spondylosis that may be DISH. She really should see a associate director of sales about this. She has severe back stiffness and pain katelyn in the am getting oob. She will be seeing her PCP next month and will consult with her about this. ROV 3 weeks. [facility] Medical History (Updated 05/30/23 @ 10:45 by ERIC Ma) Left flank pain Thoracic spine pain Abnormal chest x-ray Lower abdominal pain Renal cyst JAREK (obstructive sleep apnea) Colon cancer screening Hepatic steatosis JAREK (obstructive sleep apnea) Bibasilar crackles Dyspnea Chronic restrictive lung disease ILD (interstitial lung disease) Memory loss COPD (chronic obstructive pulmonary disease) OAB (overactive bladder) History of postoperative nausea and vomiting Diabetes Insomnia Pulmonary arterial hypertension Surgical History History of cholecystectomy H/O esophagogastroduodenoscopy History of hernia repair History of colonoscopy Family History Father Hx of diabetes insipidus Mother Hx of diabetes insipidus Social History Household Members: Family Alcohol intake: never Patient Tobacco Use Status: Never used Tobacco Years Smoked: 1yr Second Hand Smoke Exposure: No Review of Systems Const Denies fatigue, Denies fever(s), Denies night sweats, Denies poor appetite and Denies weight loss Eyes Details: glasses Reports requires corrective lenses ENT Reports Normal hearing present, Denies dental pain, Denies dysphagia, Denies hearing loss, Denies mouth pain, Denies odynophagia, Denies throat swelling, Denies tongue swelling and Reports other (Dentition adequate) Card Reports no additional complaints Resp Reports no additional complaints GI Details: Reports abdominal pain, Denies melena, Denies bloating, Denies hematochezia, Denies constipation, Denies GI cramping, Denies dysphagia, Denies excessive flatus, Denies early satiety, Reports heartburn, Reports diarrhea, Denies nausea, Denies odynophagia, Denies vomiting and Denies hematemesis Musc Reports back pain and Reports stiffness Skin/Breast Denies pruritus, Denies lesions, Denies rash and Denies jaundice Neuro Reports Normal hearing present and Denies Abnormal speech present Endo Denies fatigue Aller/Immun Denies throat swelling and Denies tongue swelling Physical Exam Vital Signs: Last Vital Signs Pulse 73 05/30/23 10:15 BP 114/73 05/30/23 10:15 BMI result Body Mass Index 32.8 Const General: cooperative, no acute distress, well developed and well groomed Nutritional Appearance: well nourished and obese Orientation/consciousness: oriented to person, oriented to place and oriented to time Limitations: language barrier HEENT Head: Yes normocephalic and Yes atraumatic Eyes General: appearance normal, both eyes and all related structures Pupils: Equal, round and reactive pupils present Neck Neck: Yes normal visual inspection and Yes no lymphadenopathy Thyroid: Thyroid normal Resp Effort & Inspection: normal respiratory effort and able to speak in complete sentences Auscultation: clear to auscultation bilaterally Cardio Rate: regular rate Rhythm: regular rhythm Heart sounds: Normal, physiologic split S2 sound present Peripheral pulses: radial pulses present and posterior tibial pulses present GI Inspection: No distended, No Abdominal panniculus present and Yes obesity Palpation (GI): Soft to palpation, nontender, no guarding, not rigid and No hepatosplenomegaly present Percussion: Yes normal to percussion Auscultation: normal bowel sounds Rectal Exam - Female: deferred Skin General skin exam: no rashes or lesions noted, turgor normal, skin not dry, no jaundice, No spider nevi and no striae Rashes: no rashes Nails: normal Neuro General: oriented to person, oriented to place and oriented to time Cranial nerves: Yes Equal, round and reactive pupils present and Yes Normal hearing present Speech: No Abnormal speech present Extrem General: Yes normal to inspection, No clubbing, No cyanosis and No edema Psych Appearance: grossly normal and well kempt Mental Status: mental status grossly normal Speech and movement: Normal speech and movement present Affect: normal affect Attitude: cooperative Thought process: Normal thought process present and not confabulating Thought content: Normal thought content present Insight: Fair insight present (Psych) Judgement: Fair judgement present (Psych) Assessment & Plan Assessment & Plan (1) GERD (gastroesophageal reflux disease): Code(s): K21.9 - Gastro-esophageal reflux disease without esophagitis (2) Abdominal bloating: Code(s): R14.0 - Abdominal distension (gaseous) (3) Post-cholecystectomy syndrome: 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 (4) DISH (diffuse idiopathic skeletal hyperostosis): Comment: of thoracic spine Code(s): M48.10 - Ankylosing hyperostosis [[place]st[place]], site unspecified Plan [place] Citizen #Kim Live She is taking 1 carafate a day but still has intermittent diarrhea. She is also taking the creon 2 tabs bid. We will increase the Carafate to 2 a day. She continues on her omeprazole with good control of her GERD. She complains that her left sided pain is still there. I do not know if this is of colon origin via spasm or from radicular back pain from her rather advanced thoracic spondylosis that may be DISH. She really should see a associate director of sales about this. She has severe back stiffness and pain katelyn in the am getting oob. She will be seeing her PCP next month and will consult with her about this. ROV 3 weeks. Medications: Changed From sucralfate (Carafate) 1 g PO QNOON 30 tabs 6RF K21.9 - Gastro-esophageal reflux disease without esophagitis, K91.5 - Postcholecystectomy syndrome, Z90.49 - Acquired absence of other specified parts of digestive tract To sucralfate (Carafate) 2 grams (2 x 1 gram) PO QNOON 30 tabs 6RF K21.9 - Gastro-esophageal reflux disease without esophagitis, K91.5 - Postcholecystectomy syndrome, Z90.49 - Acquired absence of other specified parts of digestive tract Coding Level of Care Code Est Pt Level 3 (51287) Diagnoses GERD (gastroesophageal reflux disease) K21.9 Abdominal bloating R14.0 Post-cholecystectomy syndrome K91.5 DISH (diffuse idiopathic skeletal hyperostosis) M48.10
[2023-05-30 10:15] VITALS: BP 114/73; PULSE 73; BMI 32.8
== END 2023-05-30 10:56 | disposition home or self-care (01) ==
PROVIDERS: PCP General Practice; Visit Provider Nurse Practitioner
DX: K21.9 Gastro-esophageal reflux disease without esophagitis (principal); R14.0 Abdominal distension (gaseous); K91.5 Postcholecystectomy syndrome; M48.10 Ankylosing hyperostosis [Forestier], site unspecified
CPT/HCPCS: 99213

== ENCOUNTER → 2023-05-30 10:02 | Outpatient (BNVA) | payer OTHER, SELFPAY | PROVIDERS: PCP General Practice; Visit Provider Nurse Practitioner | DX: K21.9 Gastro-esophageal reflux disease without esophagitis (principal); K91.5 Postcholecystectomy syndrome; R14.0 Abdominal distension (gaseous); M48.10 Ankylosing hyperostosis [Forestier], site unspecified | CPT/HCPCS: 99212 ==

== ENCOUNTER 2023-06-18 10:32 | Outpatient (AMB) | payer OTHER, SELFPAY ==
[2023-06-18 10:34] VITALS: BP 106/60; PULSE 72; BMI 32.7
--- NOTE | 2023-06-18 10:34 | MHC.OFFVIS ---
Intake Vital Signs 06/18/23 10:34 Height 5 ft Weight 167 lb 8.821 oz BMI 32.7 BP 106/60 Blood Pressure Location Lt brachial Position Sitting Pulse 72 Intake Visit Reasons: Follow up left flank pain Intake Note: Snehal returns in follow up of left flank pain. CC: Patient c/o left flank pain with radiation to her back. Patient reports that she continues feeling the same. 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 Accompanied by: Self / Same As Patient Allergies morphine [MORPHINE] Allergy (Mild, Verified 06/18/23 10:43) NAUSEA, VOMITING, DIZZINESS, HOT FLASHES lactose Adverse Reaction (Unknown, Verified 06/18/23 10:43) GI upset HPI Follow up left flank pain HPI Details Assessment & Plan (1) GERD (gastroesophageal reflux disease): Code(s): K21.9 - Gastro-esophageal reflux disease without esophagitis (2) Abdominal bloating: Code(s): R14.0 - Abdominal distension (gaseous) (3) Post-cholecystectomy syndrome: 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 (4) DISH (diffuse idiopathic skeletal hyperostosis): Comment: of thoracic spine Code(s): M48.10 - Ankylosing hyperostosis [[place]st[place]], site unspecified Plan [place] #Kim Live She is taking 1 carafate a day but still has intermittent diarrhea. She is also taking the creon 2 tabs bid. We will increase the Carafate to 2 a day. She continues on her omeprazole with good control of her GERD. She complains that her left sided pain is still there. I do not know if this is of colon origin via spasm or from radicular back pain from her rather advanced thoracic spondylosis that may be DISH. She really should see a energy conservation technician about this. She has severe back stiffness and pain katelyn in the am getting oob. She will be seeing her PCP next month and will consult with her about this. ROV 3 weeks. Medications: Changed From sucralfate (Carafa te) 1 g PO QNOON 30 t abs 6RF K21.9 - Gastro-eso phageal reflux dis ease without esoph agitis, K91.5 - Po stcholecystectomy syndrome, Z90.49 - Acquired absence of other specified parts of digestiv e tract To sucralfate (Carafa te) 2 grams (2 x 1 gra m) PO QNOON 30 tab s 6RF K21.9 - Gastro-eso phageal reflux dis ease without esoph agitis, K91.5 - Po stcholecystectomy syndrome, Z90.49 - Acquired absence of other specified parts of digestiv e tract TODAY'S VISIT [place] #Kim Live She continues with her carafate 2 tabs a day and her creon, yet she still has diarrhea at times, she feels this is r/t her metformin. She still has left sided pain that seems to start in her back and radiate to the abdomen, for which we have found not pathology so this is likely r/t her severe thoracic back problems. The pain is worse with lifting her left leg, like when she drives, so this is a big clue. She also continues on her omeprazole for her GERD. ROV 6 mos. PFSH Medical History Left flank pain Thoracic spine pain Abnormal chest x-ray Lower abdominal pain Renal cyst JAREK (obstructive sleep apnea) Colon cancer screening Hepatic steatosis JAREK (obstructive sleep apnea) Bibasilar crackles Dyspnea Chronic restrictive lung disease ILD (interstitial lung disease) Memory loss COPD (chronic obstructive pulmonary disease) OAB (overactive bladder) History of postoperative nausea and vomiting Diabetes Insomnia Pulmonary arterial hypertension Surgical History History of cholecystectomy H/O esophagogastroduodenoscopy History of hernia repair History of colonoscopy Family History Father Hx of diabetes insipidus Mother Hx of diabetes insipidus Social History Household Members: Family Alcohol intake: never Patient Tobacco Use Status: Never used Tobacco Years Smoked: 1yr Second Hand Smoke Exposure: No Review of Systems Const Denies fatigue, Denies fever(s), Denies night sweats, Denies poor appetite and Denies weight loss Eyes Details: glasses Reports requires corrective lenses ENT Reports Normal hearing present, Denies dental pain, Denies dysphagia, Denies hearing loss, Denies mouth pain, Denies odynophagia, Denies throat swelling, Denies tongue swelling and Reports other (Dentition adequate) Card Reports no additional complaints Resp Reports no additional complaints GI Details: Reports abdominal pain, Denies melena, Denies bloating, Denies hematochezia, Denies constipation, Denies GI cramping, Denies dysphagia, Denies excessive flatus, Denies early satiety, Reports heartburn, Reports diarrhea, Denies nausea, Denies odynophagia, Denies vomiting and Denies hematemesis Musc Reports back pain, Reports muscle weakness, Reports radiating pain into limb and Reports stiffness Skin/Breast Denies pruritus, Denies lesions, Denies rash and Denies jaundice Neuro Reports Normal hearing present and Denies Abnormal speech present Endo Denies fatigue Aller/Immun Denies throat swelling and Denies tongue swelling Physical Exam Vital Signs: Last Vital Signs Pulse 72 06/18/23 10:34 BP 106/60 06/18/23 10:34 BMI result Body Mass Index 32.7 Const General: cooperative, no acute distress, well developed and well groomed Nutritional Appearance: well nourished and obese Orientation/consciousness: oriented to person, oriented to place and oriented to time Limitations: language barrier HEENT Head: Yes normocephalic and Yes atraumatic Eyes General: appearance normal, both eyes and all related structures Pupils: Equal, round and reactive pupils present Neck Neck: Yes normal visual inspection and Yes no lymphadenopathy Thyroid: Thyroid normal Resp Effort & Inspection: normal respiratory effort and able to speak in complete sentences Auscultation: clear to auscultation bilaterally Cardio Rate: regular rate Rhythm: regular rhythm Heart sounds: Normal, physiologic split S2 sound present Peripheral pulses: radial pulses present and posterior tibial pulses present GI Inspection: No distended, Yes Abdominal panniculus present and Yes obesity Palpation (GI): Soft to palpation, nontender, no guarding, not rigid and No hepatosplenomegaly present Percussion: Yes normal to percussion Auscultation: normal bowel sounds Rectal Exam - Female: deferred Skin General skin exam: no rashes or lesions noted, turgor normal, skin not dry, no jaundice, No spider nevi and no striae Rashes: no rashes Nails: normal Neuro General: oriented to person, oriented to place and oriented to time Cranial nerves: Yes Equal, round and reactive pupils present and Yes Normal hearing present Speech: No Abnormal speech present Extrem General: Yes normal to inspection, No clubbing, No cyanosis and No edema Psych Appearance: grossly normal and well kempt Mental Status: mental status grossly normal Speech and movement: Normal speech and movement present Affect: normal affect Attitude: cooperative Thought process: Normal thought process present and not confabulating Thought content: Normal thought content present Insight: Limited insight present (Psych) Judgement: Limited judgement present (Psych) Assessment & Plan Assessment & Plan (1) Post-cholecystectomy syndrome: 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 (2) GERD (gastroesophageal reflux disease): Code(s): K21.9 - Gastro-esophageal reflux disease without esophagitis (3) Abdominal bloating: Code(s): R14.0 - Abdominal distension (gaseous) (4) DISH (diffuse idiopathic skeletal hyperostosis): Comment: of thoracic spine Code(s): M48.10 - Ankylosing hyperostosis [[place]stier], site unspecified Plan [place] #Kim Live She continues with her carafate 2 tabs a day and her creon, yet she still has diarrhea at times, she feels this is r/t her metformin. She still has left sided pain that seems to start in her back and radiate to the abdomen, for which we have found not pathology so this is likely r/t her severe thoracic back problems. The pain is worse with lifting her left leg, like when she drives, so this is a big clue. She also continues on her omeprazole for her GERD. ROV 6 mos. Coding Level of Care Code Est Pt Level 3 (76599) Diagnoses Post-cholecystectomy syndrome K91.5 GERD (gastroesophageal reflux disease) K21.9 Abdominal bloating R14.0 DISH (diffuse idiopathic skeletal hyperostosis) M48.10
== END 2023-06-18 11:04 | disposition home or self-care (01) ==
PROVIDERS: PCP General Practice; Visit Provider Nurse Practitioner
DX: K91.5 Postcholecystectomy syndrome (principal); K21.9 Gastro-esophageal reflux disease without esophagitis; R14.0 Abdominal distension (gaseous); M48.10 Ankylosing hyperostosis [Forestier], site unspecified
CPT/HCPCS: 99213

== ENCOUNTER → 2023-06-18 10:32 | Outpatient (BNVA) | payer OTHER, SELFPAY | PROVIDERS: PCP General Practice; Visit Provider Nurse Practitioner | DX: K21.9 Gastro-esophageal reflux disease without esophagitis (principal); R14.0 Abdominal distension (gaseous); K91.5 Postcholecystectomy syndrome; M48.10 Ankylosing hyperostosis [Forestier], site unspecified | CPT/HCPCS: 99212 ==

== ENCOUNTER 2023-06-23 08:50 | Outpatient (REF) | payer OTHER, SELFPAY ==
--- NOTE | ~2023-06-23 | CT_ITS ---
EXAMINATION: CT CHEST WITHOUT CONTRAST CLINICAL INFORMATION: Interstitial pulmonary disease. COMPARISON: CT chest 07/16/2022. TECHNIQUE: Multidetector volumetric CT imaging of the chest was done. Axial MIP volume rendering provided. Sagittal and coronal reformatted images were obtained. This CT examination was performed using dose optimization techniques as appropriate, variously including the following: *Automated exposure control *Adjustment of mA and/or kV according to patient size (this includes techniques or standardized protocols for targeted exams where dose is matched to indication/reason for exam; i.e. extremities or head) *Use of iterative reconstruction technique DLP: 118 mGy-cm FINDINGS: LUNGS: Again seen are changes of interstitial disease with subpleural reticulation. No gross honeycombing is seen. Some mild traction bronchiectasis is present at the lung bases. No suspicious lung mass is seen. Some scattered areas of ground-glass attenuation are present and similar to prior. MEDIASTINUM: The mediastinum is normal. CORONARY ARTERY CALCIFICATION: Present PLEURA: There is no pleural effusion. No pleural mass or thickening. AXILLA: No lymphadenopathy. UPPER ABDOMEN: Unremarkable. OSSEOUS STRUCTURES: Mild degenerative changes are present in the spine. CT/CT chest wo IV con IMPRESSION: Interstitial lung disease with subpleural reticulation and mild traction bronchiectasis. No gross honeycombing is seen. 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 Fleischner guidelines were followed.
== END 2023-06-23 08:51 | disposition home or self-care (01) ==
LOC: HO.CT 08:50
PROVIDERS: PCP General Practice; Visit Provider Hospitalist
DX: J84.9 Interstitial pulmonary disease, unspecified (principal)
CPT/HCPCS: 71250

== ENCOUNTER 2023-07-03 11:57 | Outpatient (REF) | payer OTHER, SELFPAY ==
[2023-07-03 13:53] LABS: Alanine Aminotransferase 17 U/L (0-31); Albumin Level 4.1 g/dL (3.5-5.0); Alkaline Phosphatase 81 U/L (39-117); Anion Gap 11 (12-20); Aspartate Amino Transferase 17 U/L (5-31); Bilirubin Total 0.4 mg/dL (0.0-1.0); Blood Urea Nitrogen 15 mg/dL (9-16); Calcium 9.3 mg/dL (8.4-10.2); Carbon Dioxide 30 mmol/L (22-29); Chloride 105 mmol/L (96-108); Cholesterol 146 mg/dL (<200); Estimated Glomerular Filt Rate > 60; Glucose Random 117 mg/dL (60-115); HDL Cholesterol 50 mg/dL (>40); LDL Cholesterol Calculated 80 mg/dL (<100); Potassium 3.8 mmol/L (3.3-5.1); Sodium 142 mmol/L (135-145); Total Protein 7.5 g/dL (6.5-8.0); Triglycerides 82 mg/dL (<150)
[2023-07-03 14:03] LABS: Creatinine Urine 29.87 mg/dL; Microalbumin Urine < 5.0 mg/L
[2023-07-04 03:43] LABS: ~Hepatitis C Antibody Nonreactive (Nonreactive)
== END 2023-07-03 11:58 | disposition home or self-care (01) ==
LOC: HO.HHCL 11:57
PROVIDERS: Visit Provider General Practice
DX: E11.65 Type 2 diabetes mellitus with hyperglycemia (principal)
CPT/HCPCS: 36415; 80053; 80061; 82043; 82570; 86803

== ENCOUNTER 2023-07-16 10:35 | Outpatient (AMB) | payer OTHER, SELFPAY ==
--- NOTE | 2023-07-16 10:47 | MHC.OFFVIS ---
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 Accompanied by: Self / Same As Patient Allergies morphine [MORPHINE] Allergy (Mild, Verified 07/16/23 14:57) NAUSEA, VOMITING, DIZZINESS, HOT FLASHES lactose Adverse Reaction (Unknown, Verified 07/16/23 14:57) GI upset Medication List - Last Reconciled 07/16/23 by LIAT Jeffers-KELLIE albuterol sulfate 90 mcg/actuation (ProAir HFA) 2 puffs inhalation Q4-6H PRN amlodipine 10 mg PO DAILY aspirin 81 mg PO DAILY atorvastatin 40 mg PO BEDTIME benzonatate 200 mg PO BID blood sugar diagnostic As directed budesonide-formoterol 160-4.5 mcg/actuation (Symbicort) 2 puffs PO BID cholecalciferol (vitamin D3) (Vitamin D3) 50 mcg PO DAILY cyanocobalamin (vitamin B-12) 1,000 mcg PO DAILY furosemide (Lasix) 20 mg PO DAILY PRN 30 days gabapentin 100 mg PO BID glipizide ER 5 mg PO QAM lancets As directed [id number]-[id number] 24,000-76,000 -120,000 unit (Creon) 2 caps PO BID 30 days losartan 100 mg PO DAILY melatonin 10 mg PO BEDTIME metformin ER 1,000 mg PO BID metoprolol succinate ER 100 mg PO DAILY mirabegron ER (Myrbetriq) 25 mg PO DAILY 90 days mycophenolate mofetil 1,000 mg PO BID omeprazole 20 mg PO BID oxycodone-acetaminophen 5-325 mg 1 tab PO TID PRN prednisone 10 mg PO DAILY simethicone 180 mg PO BID sitagliptin phosphate 50 mg PO QAM sucralfate (Carafate) 2 grams (2 x 1 gram) PO QNOON trazodone 100 mg (2 x 50 mg) PO BEDTIME HPI Comments Details: Snehal is a very pleasant 73-year-old Armenian-speaking female patient of Dr. Thacker. She has a PMH of chronic restrictive lung disease, interstitial lung disease, memory loss, COPD, overactive bladder, renal cyst, insomnia, obstructive sleep apnea, and pulmonary arterial hypertension. She presents to the office today for follow-up of her renal cyst and lower urinary tract symptoms. In discussion with the patient today she reports to be doing and feeling well. She reports having followed up with her PCP for ongoing abdominal pain she has been experiencing. She does report feeling at times it radiates to her flank area. No CVA tenderness noted bilaterally on exam today. When asked she reports be happy with current voiding parameters on 25 mg of Myrbetriq daily. In office urinalysis results reviewed with the patient today. PVR 16ml's. She had previously trialed oxybutynin in did not feel this was helpful. Previous workup has included a renal ultrasound showing at the inter pole aspect laterally and 8 mm benign right renal cyst is seen. For which no imaging follow-up is recommended per radiology report. Left kidney with no calculi, lesions or hydronephrosis. When asked she denies hematuria, dysuria, foul smelling urine, changes to urinary stream, flank pain, fever, and or chills. Discussed at length importance of managing diabetes for improvement in lower urinary tract symptoms as well as overall health and well-being. [facility] Medical History (Updated 07/16/23 @ 20:49 by Shireen Joiner [facility]) Renal cyst Left flank pain Thoracic spine pain Abnormal chest x-ray Lower abdominal pain JAREK (obstructive sleep apnea) Colon cancer screening Hepatic steatosis JAREK (obstructive sleep apnea) Bibasilar crackles Dyspnea Chronic restrictive lung disease ILD (interstitial lung disease) Memory loss COPD (chronic obstructive pulmonary disease) OAB (overactive bladder) History of postoperative nausea and vomiting Diabetes Insomnia Pulmonary arterial hypertension Surgical History History of cholecystectomy H/O esophagogastroduodenoscopy History of hernia repair History of colonoscopy Family History Father Hx of diabetes insipidus Mother Hx of diabetes insipidus Social History Household Members: Family Alcohol intake: never Patient Tobacco Use Status: Never used Tobacco Years Smoked: 1yr Second Hand Smoke Exposure: No Review of Systems Const Reports as per HPI Eyes Reports no additional complaints ENT Reports as per HPI Card Reports as per HPI Resp Reports as per HPI GI Reports no additional complaints Reports as per HPI Musc Reports no additional complaints Neuro Reports no additional complaints Psych Reports no additional complaints Endo Reports as per HPI Geronimo/Lymph Reports no additional complaints Aller/Immun Reports no additional complaints Physical Exam Const General: cooperative, healthy appearing, comfortable, no acute distress, well developed, alert and awake Orientation/consciousness: patient oriented x3 Limitations: no limitations HEENT Head: Yes normal to inspection, Yes normocephalic and Yes atraumatic Ears: hearing grossly normal bilaterally Eyes General: appearance normal, both eyes and all related structures Neck Neck: Yes normal visual inspection and Yes trachea midline Chest Chest palpation & inspection: normal inspection of the chest Resp Effort & Inspection: normal respiratory effort and able to speak in complete sentences Cardio Rate: regular rate GI Inspection: Yes normal to inspection General: Yes no CVA tenderness Back/Spine/Pelvis Back: no CVA tenderness Skin General skin exam: no rashes or lesions noted Neuro General: patient oriented x3 Extrem General: Yes normal to inspection Psych Appearance: grossly normal and well kempt Mental Status: mental status grossly normal Speech and movement: Normal speech and movement present and Clear speech present Affect: normal affect Attitude: cooperative Thought process: Normal thought process present Thought content: Normal thought content present Insight: Good insight present (Psych) Judgement: Good judgement present (Psych) Office Procedures Post Void Residual Post Residual Void Post Void Residual (PVR): 16 [id number] Void Residual by ultrasound Results AMB Urinalysis, Automated UA Leukoctes 0 Gabriela/uL Last Edit by [employer] on 07/16/23 11:04 UA Nitrite Negative Last Edit by [employer] on 07/16/23 11:04 UA Urobilinogen 0.2 mg/dL Last Edit by [employer] on 07/16/23 11:04 UA Protein 0 mg/dL Last Edit by [employer] on 07/16/23 11:04 UA pH 5.5 Last Edit by [employer] on 07/16/23 11:04 UA Blood 0 Neno/uL Last Edit by [employer] on 07/16/23 11:04 UA Specific [place] 1.025 Last Edit by [employer] on 07/16/23 11:04 UA Ketone Negative Last Edit by [employer] on 07/16/23 11:04 UA Bilirubin 0 mg/dL Last Edit by [employer] on 07/16/23 11:04 UA Glucose 0 mg/dL Last Edit by [employer] on 07/16/23 11:04 Results Reviewed Results Reviewed: Laboratory Last Values Urine pH (Auto) 5.5 07/16/23 10:51 Specific [place] (Auto) 1.025 07/16/23 10:51 Urine Protein (Auto) 0 mg/dL 07/16/23 10:51 Glucose (UA)(Auto) 0 mg/dL 07/16/23 10:51 Urine Ketones (Auto) Negative 07/16/23 10:51 Urine Blood (Auto) 0 Neno/uL 07/16/23 10:51 Urine Nitrite (Auto) Negative 07/16/23 10:51 Urine Bilirubin (Auto) 0 mg/dL 07/16/23 10:51 Urine Urobilinogen (Auto) 0.2 mg/dL 07/16/23 10:51 Leukocyte Esterase (Auto) 0 Gabriela/uL 07/16/23 10:51 Assessment & Plan Assessment & Plan (1) OAB (overactive bladder): Code(s): N32.81 - Overactive bladder Category: Medical (2) Renal cyst: Code(s): N28.1 - Cyst of kidney, acquired Category: Medical (3) Flank pain: Code(s): R10.9 - Unspecified abdominal pain Category: Medical Plan In office urinalysis results reviewed with the patient today; as noted above. PVR 16 mLs. Continue Myrbetriq 25 mg daily as discussed and prescribed; refill provided. Will obtain retroperitoneal ultrasound for further assessment evaluation. Discussed, educated, and stressed the importance of drinking water daily. Discussed and stressed the importance of managing diabetes for improvement in lower urinary tract symptoms as well as overall health and well-being. Follow-up in 1-3 months with imaging to be completed prior; or sooner with any issues, concerns, and or questions. Orders: Orders AMB Urinalysis Automated Today Z13.9 - Encounter for screening, unspecified AMB Post Void Residual by ultrasound Today N32.81 - Overactive bladder US retroperitoneal comp Today N32.81 - Overactive bladder Medications: Refilled mirabegron ER (Myrbetriq) 25 mg PO DAILY 90 days 90 tabs 4RF N30.10 - Interstitial cystitis (chronic) without hematuria, N32.81 - Overactive bladder, R35.1 - Nocturia, R39.15 - Urgency of urination Patient Instructions: The patient had an opportunity to ask questions regarding the treatment plan. All questions were answered. Physical exam, labs, and imaging were discussed and reviewed in detail. As well as risks, benefits, and discussion of treatment choices. No major barriers to understanding were identified. The patient expressed understanding and agreement with the above treatment plan. The patient was made aware they should contact our office by phone for worsening of their current condition, the appearance of new symptoms, or with any questions or concerns. Compliance is encouraged with any medications and follow up testing that is ordered. It is a privilege to be allowed the opportunity to participate in? your urological care.? Again, if you have any questions or concerns If you have any questions or concerns please do not hesitate to contact me. The office is [phone]. This note is constructed using voice recognition software. While every effort has been made to ensure accuracy hybrid corn breeder errors may have been included. Yours sincerely, ACE Jeffers Coding Level of Care Code Est Pt Level 3 (73008) Diagnoses OAB (overactive bladder) N32.81 Renal cyst N28.1 Flank pain R10.9 CPT Codes Post Residual Void - PVR CPT Code: 94615-Aumz Void Residual by ultrasound ([id number])
== END 2023-07-16 11:19 | disposition home or self-care (01) ==
PROVIDERS: PCP General Practice; Visit Provider Nurse Practitioner Family
DX: N32.81 Overactive bladder (principal); N28.1 Cyst of kidney, acquired; R10.9 Unspecified abdominal pain
CPT/HCPCS: 99213

== ENCOUNTER → 2023-07-16 10:35 | Outpatient (BNVA) | payer OTHER, SELFPAY | PROVIDERS: PCP General Practice; Visit Provider Nurse Practitioner Family | DX: N32.81 Overactive bladder (principal); N28.1 Cyst of kidney, acquired; R10.9 Unspecified abdominal pain | CPT/HCPCS: 51798; 81003; 99212 ==

== ENCOUNTER 2023-07-21 11:05 | Outpatient (AMB) | payer OTHER, SELFPAY ==
[2023-07-21 11:14] VITALS: BP 110/60; PULSE 67; O2SAT 96; BMI 33.8
--- NOTE | 2023-07-21 11:14 | A.OFFVIS_ITS ---
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 Chocolate Temperer: Chocolate Temperer offered & declined Accompanied by: Self / Same As Patient Allergies morphine [MORPHINE] Allergy (Mild, Verified 07/21/23 11:20) NAUSEA, VOMITING, DIZZINESS, HOT FLASHES lactose Adverse Reaction (Unknown, Verified 07/21/23 11:20) GI upset Medication List - Last Reconciled 07/21/23 by Cat Craig LPN albuterol sulfate 90 mcg/actuation (ProAir HFA) 2 puffs inhalation Q4-6H PRN amlodipine 10 mg PO DAILY aspirin 81 mg PO DAILY atorvastatin 40 mg PO BEDTIME benzonatate 200 mg PO BID blood sugar diagnostic As directed budesonide-formoterol 160-4.5 mcg/actuation (Symbicort) 2 puffs PO BID cholecalciferol (vitamin D3) (Vitamin D3) 50 mcg PO DAILY cyanocobalamin (vitamin B-12) 1,000 mcg PO DAILY furosemide (Lasix) 20 mg PO DAILY PRN 30 days gabapentin 100 mg PO BID glipizide ER 5 mg PO QAM lancets As directed [id number]-[id number] 24,000-76,000 -120,000 unit (Creon) 2 caps PO BID 30 days losartan 100 mg PO DAILY melatonin 10 mg PO BEDTIME metformin ER 1,000 mg PO BID metoprolol succinate ER 100 mg PO DAILY mirabegron ER (Myrbetriq) 25 mg PO DAILY 90 days mycophenolate mofetil 1,000 mg PO BID omeprazole 20 mg PO BID prednisone 10 mg PO DAILY simethicone 180 mg PO BID sitagliptin phosphate 50 mg PO QAM sucralfate (Carafate) 2 grams (2 x 1 gram) PO QNOON trazodone 100 mg (2 x 50 mg) PO BEDTIME HPI Comments Details: The patient is a 73-year-old woman with known pulmonary hypertension. She also has obstructive airway disease and has been on short-acting beta agonist. She has been having increasing shortness of breath. And she has been using her rescue inhaler with partial response. At this point will start her on a jessica ntenance inhaler. In addition to that in view of her pulmonary hypertension will go ahead and request an overnight oximetry to assess her for nocturnal hypoxia. She does have any evidence of any nocturnal hypoxia will be imperative to start her on oxygen supplementation to treat her underlying pulmonary hypertension. 04/29/2022 the patient is here for a pulmonary follow-up visit. Recently she went to the ER because of worsening respiratory symptoms and cough. There she had a chest x-ray without any significant changes show she does have the reticulonodular opacities her interstitial lung disease. Since we last spoke the patient was supposed to undergo blood work and she has not done as of yet. In addition to that the patient did not feel healthy enough to have a sleep study. Therefore she did not have that either. The patient is frustrated that she is no better. Although she also did not follow through with the recommendations. She was provided with prednisone in the hospital and did help her symptoms. She has completed the course at this time. She also finished a course of antibiotics. Again, she has significant interstitial lung disease. Her total lung capacity is decreased consistent with chronic restrictive lung disease from the interstitial lung disease. The etiologies still is unclear. Patient understands the blood work to help try to clear up the etiology of the fibrosis. Indeed, if this fibrosis is progressive then anti fibrotic agents will be warranted. Since the patient is developing significant cough and shortness of breath we did taken for brief walking oximetry in the patient was able to maintain a pulse ox in the low 90s. Therefore the patient does not qualify for oxygen. based on her ongoing symptoms will go ahead and put her on a small dose of prednisone to see if we can stabilize her condition as we move further. The patient understands the importance of the blood work that she needs to get prior to the next visit. In addition to that we briefly spoke about lung biopsies. The patient is reluctant to undergo any invasive or semi- invasive interventions at this time. 05/20/2022 the patient is here for a pulmonary follow-up visit. Overall the patient has been feeling a little better. She is tolerating the prednisone. We did review all her blood work. No evidence of any connective tissue conditions or hyper sensitivity reaction to we can identify. Therefore, no clear etiology for her interstitial lung disease. We talked about diagnostic interventions which is biopsies. However, explained to the patient that this may not necessarily change the overall treatment plan. Therefore will continue to assess the response to prednisone. I am hopeful that she response. we can better assess this will be repeating her imaging studies. In the meantime she continues to cough. The benzo night work great for her cough. Although the not covered. We did look for different alternatives including going with good Rx to see if she can get him on a lower walker. These probably be the best option. Also, we did talk about the if there is any evidence of any progression of her pulmonary fibrosis to suggest progressive idiopathic pulmonary fibrosis then we can consider antifibrotic therapies at that time. 06/18/2022 the patient is here for a pulmonary follow-up visit. The patient overall is feeling better. She is is bonding well to the prednisone. Only taking 10 mg. Her prescription for the Benzonate is with still that [employer] and she did take a very low walker which she is happy about. Her sugars are re asonable staying in the normal range. We did talk about if there is any worsening of the interstitial lung disease suggesting progressive pulmonary fibrosis then we will start Ofev. While give her some reading material in order for her to read up on it. I do believe that she will benefit from the medication if there is any evidence of progression of disease. She does continue to have issues with her sleep. She does wake up tired with headaches. Will perform an overnight oximetry to make sure that she does not need oxygen supplementation. In the meantime she continues with respiratory therapy with good effect. She does continue the Bentson eyes again with very good response improving her cough overall. 07/29/2022 the patient is here for pulmonary follow-up visit. She is feeling a li ttle better on the prednisone and also continues on the Bentson eyes with good effect. Her cough is overall better. She still has some dyspnea on exertion with activity which is mild severity. We did review her last CT scan of the chest that she had in June 2022 demonstrating interval worsening of the interstitial lung disease as well as evidence of scarring and some evidence of ground-glass opacities. She therefore, based on the worsening disease I am concerned that she continued to have progressive symptoms. At the basilar progressive interstitial lung disease with pulmonary fibrosis I do believe that she will be a good candidate for Ofev. Will go ahead and request a prior approval from her insurance company. She is in the meantime she continues on the prednisone. She is concerned about the side effects of prednisone but I do believe that she needs additional anti-inflammatory effect due to her ongoing symptoms and findings. Therefore, will go ahead and start him on CellCept. We did talk about potential biopsy. The patient is going to think about it. Will try these medication changes at this time. However, if the patient is no better or there is any worsening of disease then will have to further consider a biopsy. If the patient does need a biopsy and wedge biopsy will be passed 10/29/2022 the patient is here for pulmonary follow-up visit. She continues to have cough and also shortness of breath with activity. I did had sent her prescription for mycophenolate when she was last here. 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 He has been now about 3 months. Explained to her that it appears that she has interval worsening of her interstitial lung disease. She also has diabetes was difficult to increase her prednisone. Mycophenolate will be a very good option in order to decrease the inflammation and hopefully decrease the risk of further scarring. The patient also reviewed the CT scan with me. I did show her the CT scan she had back in 2021 and a CAT scan of 2022 demonstrating worsening of disease. The patient will start the mycophenolate at this time. I did write it down for her so she can start with 1 daily and then increase it to twice a day. In November she is going to come in and get x-rays and also blood work and will follow-up with her at that time. Will plan to repeat her PFTs sometime in February. Also we talked about Ofev. This is a medication we have sent to the pharmacy. We did send a script but not clear what happened as far as the process. I did reach out to our staff in the office to try to get an update of what occurred with the medication Request. Again I reviewed the blood work that we did with her. No evidence of any connective tissue disease. No evidence of any hypersensitivity pneumonitis. Her scarring is primarily at the base suggesting the possibility of UIP versus I fibrotic NSIP. Will see her response to therapy. If the patient does not have any significant response to the therapy then will consider surgical biopsy. 12/20/2022 the patient is here for a pulmonary follow-up visit. The patient continues to be about the same. She does have the frequent constant cough. It is nonproductive in nature. Responds well to the current medications. She also has shortness of breath with activity. Does not feel like she is getting any worse from the last visit. The patient did have a repeat chest x-ray demonstrating some interval worsening though. Therefore she understands that this interstitial lung disease may indeed be progressive which is a concern. She has been on mycophenolate although she is only taking 1 tablet daily with which she was supposed to be taking more. Therefore I did write down the instructions on how she is to take the mycophenolate. She is going to titrate up to hopefully 2 tablets b.i.d.. Blood work was reassuring without any evidence of any organ toxicity. When she reaches she is the 2 g a day does she will go ahead and have additional blood work. When she is on 2 g the patient will also cut down on the prednisone. We did talk about Ofev has good option for her specially if indeed this appears to be a per aggressive interstitial fibrosis. Therefore, will see how she responds to this current increase medications she will have a repeat chest x-ray and if there is any worsening of symptoms and or imaging studies then will go ahead and start Ofev. 03/18/2023 the patient is here for a pulmonary follow-up visit. Overall the patient has been doing well. Her cough is overall better. She still has dyspn ea on exertion mild in severity. She continues to take the prednisone 10 mg daily and also was able to increase the mycophenolate now taking 1000 mg in the morning and 500 mg at nighttime. She did have a chest x-ray which I personally reviewed. I will see any significant changes although which still waiting for the final read. The patient has not started the also bibasilar yet. I am unsure if it was not approved by the insurance. At this point will do is we will go ahead and maximize her mycophenolate to 1000 mg twice a day and also she can decrease the prednisone some because of her history of diabetes. Will plan to repeat a CT scan in June closer to her last CT scan to see if there is any progression of the interstitial lung disease. If there is any progression of the eye LD then starting her on Ofev will be very important. If the patient has any worsening symptoms prior to the next visit she will call the office for an earlier assessment. Otherwise will follow-up then. 07/21/2023 the patient is here for a pulmonary follow-up visit. She has been tolerating mycophenolate well. She is now up to 2 g a day. She is off the prednisone altogether which is reassuring. She continues shortness of breath with activities about the same. She is also complaining of left-sided flank discomfort. The etiology discomfort still not clear though is bothersome to her. She did have a CT scan of the chest beginning of the month June 2023 which I personally reviewed with her. She does have the evidence of the reticular changes primarily in the periphery of the bases which is very suspicious for UIP pattern or IPF. She has been on the mycophenolate and seems to be helping. She is off the prednisone which is reassuring. Still an antifibrotic agent will be helpful in decreasing the degree of progression. We did look at previous CT scans from 2019 to 2022 in 2023. Seems to be some slight progression from 2021 to now. Therefore will go ahead and request Ofev at this time. She understands about the side effects. In addition to that she will undergo blood work to make sure she is tolerating the medicine. Send try Lidoderm patch to the affected area regarding the abdominal discomfort. [facility] Medical History (Updated 07/21/23 @ 12:57 by Van Hill MD) Renal cyst Left flank pain Thoracic spine pain Abnormal chest x-ray Lower abdominal pain JAREK (obstructive sleep apnea) Colon cancer screening Hepatic steatosis JAREK (obstructive sleep apnea) Bibasilar crackles Dyspnea Chronic restrictive lung disease ILD (interstitial lung disease) Memory loss COPD (chronic obstructive pulmonary disease) OAB (overactive bladder) History of postoperative nausea and vomiting Diabetes Insomnia Pulmonary arterial hypertension Surgical History History of cholecystectomy H/O esophagogastroduodenoscopy History of hernia repair History of colonoscopy Family History Father Hx of diabetes insipidus Mother Hx of diabetes insipidus Social History (Updated 07/21/23 @ 11:22 by Cat Craig LPN) Household Members: Family Alcohol intake: never Patient Tobacco Use Status: Never used Tobacco Years Smoked: 1yr Second Hand Smoke Exposure: No Review of Systems Const Denies fatigue, Denies fever(s), Denies night sweats, Denies poor appetite and Denies weight loss Eyes Details: glasses Reports requires corrective lenses ENT Reports Normal hearing present, Denies dental pain, Denies dysphagia, Denies hearing loss, Denies mouth pain, Denies odynophagia, Denies throat swelling, Denies tongue swelling and Reports other (Dentition adequate) Card Reports dyspnea on exertion Resp Reports cough and Reports dyspnea on exertion GI Reports abdominal pain, Denies melena, Denies bloating, Denies hematochezia, Denies constipation, Denies GI cramping, Denies dysphagia, Denies excessive flatus, Denies early satiety, Denies heartburn, Reports diarrhea, Denies nausea, Denies odynophagia, Denies vomiting and Denies hematemesis Skin/Breast Denies pruritus, Denies lesions, Denies rash and Denies jaundice Neuro Reports Normal hearing present and Denies Abnormal speech present Endo Denies fatigue Aller/Immun Denies throat swelling and Denies tongue swelling Physical Exam Vital Signs: Last Vital Signs Pulse 67 07/21/23 11:14 BP 110/60 07/21/23 11:14 Pulse Ox 96 07/21/23 11:14 Oxygen Delivery Method Room Air 07/21/23 11:14 BMI result Body Mass Index 33.8 Const General: alert HEENT General nose exam: Abnormal external nose present and Nasal discharge present Neck Neck: Yes normal visual inspection, Yes full ROM and Yes no lymphadenopathy Chest Chest palpation & inspection: normal inspection of the chest Resp Auscultation: rales bilateral and diminished lung sounds Cardio Rate: regular rate Rhythm: regular rhythm Heart sounds: S1 normal heart sound present and S2 normal heart sound present GI Palpation (GI): Soft to palpation and nontender Auscultation: normal bowel sounds General: Yes no CVA tenderness Back/Spine/Pelvis Back: no CVA tenderness Skin General skin exam: rashes and/or lesions noted Neuro Cranial nerves: Yes Normal hearing present Speech: No Abnormal speech present Extrem General: No clubbing, No cyanosis and Yes edema Assessment & Plan Assessment & Plan (1) Pulmonary arterial hypertension: Comment: secondary Code(s): I27.21 - Secondary pulmonary arterial hypertension Category: Medical (2) COPD (chronic obstructive pulmonary disease): Code(s): J44.9 - Chronic obstructive pulmonary disease, unspecified Category: Medical Qualifiers: COPD type: chronic bronchitis Chronic bronchitis type: simple Qualified Code(s): J41.0 - Simple chronic bronchitis (3) ILD (interstitial lung disease): Comment: progressively worsening based on CT chest Code(s): J84.9 - Interstitial pulmonary disease, unspecified Category: Medical (4) Chronic restrictive lung disease: Code(s): J98.4 - Other disorders of lung Category: Medical Plan continue symbicort WILFRIDO as needed continue cellcept, up to 2gm/day bloodwork start OFEV for progressive fibrosis cough medication: benzonates, rx with goodrx repeat CT chest to assess progression of disease 06/2024 Sleep with HOB elevated F/U 4-6 months with PFTs Orders: Orders PFT pulmonary function test 4 Months J84.9 - Interstitial pulmonary disease, unspecified Medications: New lidocaine 5% (Lidoderm) leave on most painful area for up to 12 hrs 1 patch topical DAILY 30 days 30 ea 4RF B02.29 - Other postherpetic nervous system involvement Coding Level of Care Code Est Pt Level 4 (60215) Diagnoses Pulmonary arterial hypertension I27.21 Simple chronic bronchitis J41.0 COPD type: chronic bronchitis Chronic bronchitis type: simple ILD (interstitial lung disease) J84.9 Chronic restrictive lung disease J98.4 Time Spent (min) 18
== END 2023-07-21 11:48 | disposition home or self-care (01) ==
PROVIDERS: PCP General Practice; Visit Provider Hospitalist
DX: I27.21 Secondary pulmonary arterial hypertension (principal); J41.0 Simple chronic bronchitis; J84.9 Interstitial pulmonary disease, unspecified; J98.4 Other disorders of lung
CPT/HCPCS: 99214

== ENCOUNTER → 2023-07-21 11:05 | Outpatient (BNVA) | payer OTHER, SELFPAY | PROVIDERS: PCP General Practice; Visit Provider Hospitalist | DX: J84.9 Interstitial pulmonary disease, unspecified (principal); J98.4 Other disorders of lung; J41.0 Simple chronic bronchitis; I27.21 Secondary pulmonary arterial hypertension; B02.29 Other postherpetic nervous system involvement | CPT/HCPCS: 99212 ==

== ENCOUNTER 2023-08-01 08:24 | Outpatient (REF) | payer OTHER, SELFPAY ==
--- NOTE | ~2023-08-01 | US_ITS ---
EXAMINATION: US ABDOMEN COMPLETE CLINICAL INFORMATION: Cirrhosis screening. Left upper quadrant pain. Fatty liver. COMPARISON: Renal ultrasound 11/13/2022. CT abdomen and pelvis 09/25/2021. Limited abdominal ultrasound 07/18/2020. TECHNIQUE: Real-time imaging of the abdominal viscera. FINDINGS: PANCREAS: Normal. ABDOMINAL AORTA: The proximal, mid, and distal segments are normal in caliber. INFERIOR VENA CAVA: Visualized portions are normal. LIVER: The liver is normal in size. The liver contour is normal. Mildly increased hepatic echogenicity which can be seen in the setting of hepatic steatosis or underlying liver disease. No focal hepatic lesion. There is no intrahepatic biliary duct dilatation seen. GALLBLADDER: Surgically absent. COMMON BILE DUCT: Normal in caliber measuring 1.2 cm in diameter. RIGHT KIDNEY: No hydronephrosis or renal calculi. The kidney measures 12.3 cm in maximum dimension. Subcentimeter benign-appearing renal cyst, no follow-up imaging recommended. LEFT KIDNEY: Normal. No hydronephrosis. No renal calculi or focal parenchymal lesions. The kidney measures 12.8 cm in maximum dimension. SPLEEN: Normal. The spleen measures 10.6 cm in maximum dimension. FREE FLUID: None. US/US abdomen complete IMPRESSION: Mildly increased hepatic echogenicity which can be seen in the setting of hepatic steatosis or underlying liver disease. No discrete liver lesion.
== END 2023-08-01 08:25 | disposition home or self-care (01) ==
LOC: HO.US 08:24
PROVIDERS: PCP General Practice; Visit Provider General Practice
DX: K76.0 Fatty (change of) liver, not elsewhere classified (principal)
CPT/HCPCS: 76700

== ENCOUNTER 2023-09-03 09:54 | Outpatient (REF) | payer OTHER, SELFPAY ==
--- NOTE | ~2023-09-03 | US_ITS ---
EXAMINATION: US RETROPERITONEAL COMPLETE (RENAL) CLINICAL INFORMATION: Overactive bladder. COMPARISON: Ultrasound abdomen complete 08/01/2023. Renal ultrasound 11/13/2022. CT abdomen and pelvis 09/25/2021. X-ray abdomen KUB 09/09/2018. TECHNIQUE: Real-time imaging of the kidneys and bladder. FINDINGS: RIGHT KIDNEY: 13.3 x 5.9 x 5.1 cm (SAG x AP x TRV). The kidney is normal in size, contour, and echogenicity. Renal cortical thickness is normal. No renal calculi or hydronephrosis. A benign small 0.8 cm Bosniak class I mid renal cyst is noted which requires no additional imaging or follow up. No solid renal masses are seen. LEFT KIDNEY: 12.5 x 5.6 x 3.7 cm (SAG x AP x TRV). The kidney is normal in size, contour, and echogenicity. Renal cortical thickness is normal. No calculi or focal parenchymal lesions. No hydronephrosis. BLADDER: Well distended and normal. Bilateral ureteral jets are demonstrated. Prevoid bladder volume is 286 mL. Postvoid bladder volume is 70.7 mL. US/US retroperitoneal comp IMPRESSION: 1. Normal-appearing kidneys. 2. 70.7 mL postvoid residual.
== END 2023-09-03 09:55 | disposition home or self-care (01) ==
LOC: HO.US 09:54
PROVIDERS: PCP General Practice; Visit Provider Nurse Practitioner Family
DX: N32.81 Overactive bladder (principal)
CPT/HCPCS: 76770

== ENCOUNTER 2023-09-04 10:22 | Outpatient (REF) | payer OTHER, SELFPAY ==
--- NOTE | ~2023-09-04 | XR_ITS ---
EXAMINATION: XR LUMBAR SPINE XR SACROILIAC JOINTS XR HIP, BILATERAL CLINICAL INDICATION: Back pain, low back pain. COMPARISON: X-ray thoracic spine 05/15/2023, left hip 03/28/2016, CT abdomen and pelvis 09/25/2021. TECHNIQUE: 3 views of the sacroiliac joints. AP view of the pelvis as well as AP and lateral views of each hip. 3 views of the lumbar spine. FINDINGS: LUMBAR SPINE: Diffuse demineralization. Facet arthritis in the lower lumbar spine. Mild multilevel lumbar spondylosis. BILATERAL SACROILIAC JOINTS: Diffuse demineralization. Moderate degenerative changes in the bilateral sacroiliac joints with joint space narrowing and hypertrophic change. BILATERAL HIPS: Diffuse demineralization. Pubic symphysis maintained. Mild degenerative changes in the bilateral hips with joint space narrowing and hypertrophic change. Bilateral hip alignment preserved. Extensive vascular calcifications. XR/XR hips ADRIEN min 3V IMPRESSION: 1. Mild multilevel lumbar spondylosis. 2. Moderate degenerative changes bilateral sacroiliac joints. 3. Mild degenerative changes bilateral hips. 4. Diffuse demineralization. Additional imaging with CT scan or MRI should be considered for further evaluation if there is clinical concern for fracture or other underlying pathology..
--- NOTE | ~2023-09-04 | XR_ITS ---
EXAMINATION: XR LUMBAR SPINE XR SACROILIAC JOINTS XR HIP, BILATERAL CLINICAL INDICATION: Back pain, low back pain. COMPARISON: X-ray thoracic spine 05/15/2023, left hip 03/28/2016, CT abdomen and pelvis 09/25/2021. TECHNIQUE: 3 views of the sacroiliac joints. AP view of the pelvis as well as AP and lateral views of each hip. 3 views of the lumbar spine. FINDINGS: LUMBAR SPINE: Diffuse demineralization. Facet arthritis in the lower lumbar spine. Mild multilevel lumbar spondylosis. BILATERAL SACROILIAC JOINTS: Diffuse demineralization. Moderate degenerative changes in the bilateral sacroiliac joints with joint space narrowing and hypertrophic change. BILATERAL HIPS: Diffuse demineralization. Pubic symphysis maintained. Mild degenerative changes in the bilateral hips with joint space narrowing and hypertrophic change. Bilateral hip alignment preserved. Extensive vascular calcifications. XR/XR lumbar spine 2-3V IMPRESSION: 1. Mild multilevel lumbar spondylosis. 2. Moderate degenerative changes bilateral sacroiliac joints. 3. Mild degenerative changes bilateral hips. 4. Diffuse demineralization. Additional imaging with CT scan or MRI should be considered for further evaluation if there is clinical concern for fracture or other underlying pathology..
--- NOTE | ~2023-09-04 | XR_ITS ---
EXAMINATION: XR LUMBAR SPINE XR SACROILIAC JOINTS XR HIP, BILATERAL CLINICAL INDICATION: Back pain, low back pain. COMPARISON: X-ray thoracic spine 05/15/2023, left hip 03/28/2016, CT abdomen and pelvis 09/25/2021. TECHNIQUE: 3 views of the sacroiliac joints. AP view of the pelvis as well as AP and lateral views of each hip. 3 views of the lumbar spine. FINDINGS: LUMBAR SPINE: Diffuse demineralization. Facet arthritis in the lower lumbar spine. Mild multilevel lumbar spondylosis. BILATERAL SACROILIAC JOINTS: Diffuse demineralization. Moderate degenerative changes in the bilateral sacroiliac joints with joint space narrowing and hypertrophic change. BILATERAL HIPS: Diffuse demineralization. Pubic symphysis maintained. Mild degenerative changes in the bilateral hips with joint space narrowing and hypertrophic change. Bilateral hip alignment preserved. Extensive vascular calcifications. XR/XR sacroiliac joint min 3V IMPRESSION: 1. Mild multilevel lumbar spondylosis. 2. Moderate degenerative changes bilateral sacroiliac joints. 3. Mild degenerative changes bilateral hips. 4. Diffuse demineralization. Additional imaging with CT scan or MRI should be considered for further evaluation if there is clinical concern for fracture or other underlying pathology..
== END 2023-09-04 10:23 | disposition home or self-care (01) ==
LOC: HO.HOSX 10:22
PROVIDERS: PCP General Practice; Visit Provider Physical Medicine & Rehabilitation
DX: M54.50 Low back pain, unspecified (principal); R10.2 Pelvic and perineal pain
CPT/HCPCS: 72100; 72202; 73522; 99202

== ENCOUNTER 2023-09-04 10:22 | Outpatient (AMB) | payer OTHER, SELFPAY ==
[2023-09-04 10:26] VITALS: BMI 33.8
--- NOTE | 2023-09-04 10:26 | A.OFFVIS_ITS ---
Vital Signs 09/04/23 10:26 Height 5 ft Weight 173 lb BMI 33.8 Intake Visit Reasons: N/P T-spine pain Intake Note: Snehal is a 73 year old female who presents today as a new patient with complaints of thoracic back pain. She was referred by her PCP Dr Aarti Thacker. She was newly diagnosis of DISH. Patient reports her pain begins in her groin area and radiates to her back. She has been having this pain for about 4-5 months. She has discomfort when she is sitting, laying down and has difficulty getting up from laying down due to her pain. Architectural Technologist Required: Yes Architectural Technologist Language: Confidential Secretary Name: [id number] Allergies morphine [MORPHINE] Allergy (Mild, Verified 09/04/23 10:33) NAUSEA, VOMITING, DIZZINESS, HOT FLASHES lactose Adverse Reaction (Unknown, Verified 09/04/23 10:33) GI upset Medication List - Last Reconciled 09/04/23 by Katie Diaz MD albuterol sulfate 90 mcg/actuation (ProAir HFA) 2 puffs inhalation Q4-6H PRN amlodipine 10 mg PO DAILY aspirin 81 mg PO DAILY atorvastatin 40 mg PO BEDTIME blood sugar diagnostic As directed budesonide-formoterol 160-4.5 mcg/actuation (Symbicort) 2 puffs PO BID cholecalciferol (vitamin D3) (Vitamin D3) 50 mcg PO DAILY cyanocobalamin (vitamin B-12) 1,000 mcg PO DAILY furosemide (Lasix) 20 mg PO DAILY PRN 30 days gabapentin 100 mg PO BID glipizide ER 5 mg PO QAM lancets As directed lidocaine 5% (Lidoderm) 1 patch topical DAILY 30 days [id number]-gpsuego 24,000-76,000 -120,000 unit (Creon) 2 caps PO BID 30 days losartan 100 mg PO DAILY melatonin 10 mg PO BEDTIME metformin ER 1,000 mg PO BID metoprolol succinate ER 100 mg PO DAILY mirabegron ER (Myrbetriq) 25 mg PO DAILY 90 days mycophenolate mofetil 1,000 mg PO BID nintedanib (Ofev) 100 mg PO Q12H 30 days omeprazole 20 mg PO BID ondansetron 4 mg PO Q8H PRN 30 days simethicone 180 mg PO BID sitagliptin phosphate 50 mg PO QAM sucralfate (Carafate) 2 grams (2 x 1 gram) PO QNOON trazodone 100 mg (2 x 50 mg) PO BEDTIME HPI Comments Details: History of ILD, memory loss, DM. Back pain only started 4 months ago. She denies inciting injuries. She does not think she was doing anything to provoke. She says this is new, affecting her left abdomen going around the back. Then she has a separate left sided back that goes to leg pain. When we confirmed history further, these abdominal and back pain came together. When she lays down, it is hard for her to get up again. 1 Reports numbness, she has history of DM neuropathy. Denies weakness. No PT yet. On chronic percocet for back pain - she says that she has chronic left sided back pain which is now worse. Apparently, based on records review, she had a thoracic xray which reported possible DISH, therefore referred to us. She says pain is lower back and abdominal, not thoracic though. [facility] Medical History (Updated 09/04/23 @ 10:56 by Katie Diaz MD) Renal cyst Left flank pain Thoracic spine pain Abnormal chest x-ray Lower abdominal pain JAREK (obstructive sleep apnea) Colon cancer screening Hepatic steatosis JAREK (obstructive sleep apnea) Bibasilar crackles Dyspnea Chronic restrictive lung disease ILD (interstitial lung disease) Memory loss COPD (chronic obstructive pulmonary disease) OAB (overactive bladder) History of postoperative nausea and vomiting Diabetes Insomnia Pulmonary arterial hypertension Surgical History History of cholecystectomy H/O esophagogastroduodenoscopy History of hernia repair History of colonoscopy Family History Father Hx of diabetes insipidus Mother Hx of diabetes insipidus Social History (Updated 09/04/23 @ 10:33 by Bev Hill) Household Members: Family Alcohol intake: never Patient Tobacco Use Status: Never used Tobacco Years Smoked: 1yr Second Hand Smoke Exposure: No Current occupational status: retired Review of Systems Const All systems reviewed & are unremarkable except as noted in HPI and below Physical Exam Vital Signs: BMI result Body Mass Index 33.8 Constitutional: Patient appears to be in no acute distress, well nourished and well developed. Patient was appropriately conversant and oriented. Good historian. MSK: No specific abnormalities found on inspection of the spine and all extremities. Mild tenderness over lumbar paraspinals, and SI, left only. No tenderness over right side. No tenderness over spinous processes or facets. No GT tenderness. Abdomen is soft, no palpable mass. Lumbar ROM was full. Noted hip weakness, difficulty getting up on bed. Straight-leg raising test negative. FABERE test positive left-sided back pain. Hip flexion bilateral 4/5. Rest of strength testing 5/5. Neurological: Lawson?s negative bilaterally. Babinski was down going bilaterally. Clonus was negative. Gait is non-antalgic without loss of balance. Results Reviewed Results Reviewed: I independently reviewed the results of the following: Thoracic x-ray did show anterior endplate spurs but not all of vertebral levels had it. Does not look like bamboo spine. Ordering Physician: Jeannine Rendon Date of Service: 05/15/23 Procedure(s): XR thoracic spine 2V Accession Number(s): [id number] cc: Jeannine Rendon; Aarti Thacker~ EXAMINATION: XR THORACOLUMBAR SPINE CLINICAL INFORMATION: Pain COMPARISON: 11/13/2020 TECHNIQUE: 2 views of the thoracic spine FINDINGS: No acute fracture or dislocation. Vertebral body heights are preserved. Flowing anterior vertebral body osteophytes may reflect diffuse idiopathic skeletal hyperostosis. XR/XR thoracic spine 2V IMPRESSION: Flowing anterior vertebral body osteophytes may reflect diffuse idiopathic skeletal hyperostosis. I reviewed records from the following: Pulmonary Rheumatology [facility] Assessment & Plan Assessment & Plan (1) Lumbar pain: Code(s): M54.50 - Low back pain, unspecified Category: Medical (2) Pelvic pain: Code(s): R10.2 - Pelvic and perineal pain Category: Medical Plan Chronic back pain with exacerbation last 4 months. Complaining more of left- sided pain that goes down to the leg and abdominal pain that wraps around towards the back. Investigate whether this is lumbar/pelvic/hip related. We will start with plain x-rays today. As for the question of DISH, we will send for labs to test ARPIT and RF. Patient denies any past history of rheumatoid arthritis. Assessment and plan discussed with patient, and patient was agreeable. All questions were answered thoroughly. Follow up after results. Katie Diaz MD, SULEMA Board Certified, [place] [employer] and Rehabilitation (ABPMR) Board Certified, [place] Board [employer] Electrodiagnostic Medicine (ABEM) Orders: Orders XR lumbar spine 2-3V Today M54.50 - Low back pain, unspecified, M54.9 - Dorsalgia, unspecified, R10.2 - Pelvic and perineal pain XR sacroiliac joint min 3V Today M54.50 - Low back pain, unspecified, R10.2 - Pelvic and perineal pain ARPIT Reflex Titer and Pattern Today M54.50 - Low back pain, unspecified, R10.2 - Pelvic and perineal pain XR hips ADRIEN min 3V Today M54.50 - Low back pain, unspecified, R10.2 - Pelvic and perineal pain Rheumatoid Factor Today M54.50 - Low back pain, unspecified, R10.2 - Pelvic and perineal pain Coding Level of Care Code New Pt Level 4 (20050) Diagnoses Lumbar pain M54.50 Pelvic pain R10.2
== END 2023-09-04 13:01 | disposition home or self-care (01) ==
PROVIDERS: PCP General Practice; Visit Provider Physical Medicine & Rehabilitation
DX: M54.50 Low back pain, unspecified (principal); R10.2 Pelvic and perineal pain
CPT/HCPCS: 99204

== ENCOUNTER 2023-09-12 10:45 | Outpatient (AMB) | payer OTHER, SELFPAY ==
--- NOTE | 2023-09-12 10:54 | A.OFFVIS_ITS ---
Intake Visit Reasons: 2m/US(set) Intake Note: Patient presents for follow up OAB, renal cyst, ultrasound results Imagin09/03/23 Urology Medications: myrbetriq Blood Thinner: Aspirin PVR: 48ml;s Force Dispatcher Required: Yes Force Dispatcher Name: Ghanshyam [id number] Accompanied by: Self / Same As Patient Allergies morphine [MORPHINE] Allergy (Mild, Verified 09/13/23 16:24) NAUSEA, VOMITING, DIZZINESS, HOT FLASHES lactose Adverse Reaction (Unknown, Verified 09/13/23 16:24) GI upset Medication List - Last Reconciled 09/13/23 by LIAT Jeffers- albuterol sulfate 90 mcg/actuation (ProAir HFA) 2 puffs inhalation Q4-6H PRN amlodipine 10 mg PO DAILY aspirin 81 mg PO DAILY atorvastatin 40 mg PO BEDTIME blood sugar diagnostic As directed budesonide-formoterol 160-4.5 mcg/actuation (Symbicort) 2 puffs PO BID cholecalciferol (vitamin D3) (Vitamin D3) 50 mcg PO DAILY cyanocobalamin (vitamin B-12) 1,000 mcg PO DAILY furosemide (Lasix) 20 mg PO DAILY PRN 30 days gabapentin 100 mg PO BID glipizide ER 5 mg PO QAM lancets As directed lidocaine 5% (Lidoderm) 1 patch topical DAILY 30 days hfnpwf-nvwzkdyz-lmlykuz 24,000-76,000 -120,000 unit (Creon) 2 caps PO BID 30 days losartan 100 mg PO DAILY melatonin 10 mg PO BEDTIME metformin ER 1,000 mg PO BID metoprolol succinate ER 100 mg PO DAILY mirabegron ER (Myrbetriq) 25 mg PO DAILY 90 days mycophenolate mofetil 1,000 mg PO BID nintedanib (Ofev) 100 mg PO Q12H 30 days omeprazole 20 mg PO BID ondansetron 4 mg PO Q8H PRN 30 days simethicone 180 mg PO BID sitagliptin phosphate 50 mg PO QAM sucralfate (Carafate) 2 grams (2 x 1 gram) PO QNOON trazodone 100 mg (2 x 50 mg) PO BEDTIME HPI Comments Details: Snehal is a very pleasant 73-year-old Chadian-speaking female patient of Dr. Thacker. She has a PMH of chronic restrictive lung disease, interstitial lung disease, memory loss, COPD, overactive bladder, renal cyst, insomnia, obstructive sleep apnea, and pulmonary arterial hypertension. She presents to the office today for follow-up of her renal cyst and lower urinary tract symptoms. In discussion with the patient today she reports to be doing and feeling well. She reports significant improvement in lower urinary tract symptoms she had been experiencing. She reports compliance with 25 mg of Myrbetriq daily. She reports be happy with current voiding parameters with Myrbetriq. Recent retroperitoneal ultrasound results reviewed with the patient today. Bilateral kidneys with no hydronephrosis or renal calculi. A benign small 0.8 right-sided Bosniak class 1 cyst is noted that requires no additional follow-up per radiology report. The bladder is well distended and normal. Bilateral jets are demonstrated. Pre void bladder volume is approximately 290 mL. Postvoid bladder volume is approximately 70 mL. In office urinalysis results reviewed with the patient today. PVR 48 mL. She otherwise denies any bothersome urinary issues or concerns. She denies hematuria, dysuria, foul smelling urine, changes to urinary stream, flank pain, fever, and or chills. Dis cussed at length importance of managing diabetes for improvement in lower urinary tract symptoms as well as overall health and well-being. [facility] Medical History Renal cyst Left flank pain Thoracic spine pain Abnormal chest x-ray Lower abdominal pain JAREK (obstructive sleep apnea) Colon cancer screening Hepatic steatosis JAREK (obstructive sleep apnea) Bibasilar crackles Dyspnea Chronic restrictive lung disease ILD (interstitial lung disease) Memory loss COPD (chronic obstructive pulmonary disease) OAB (overactive bladder) History of postoperative nausea and vomiting Diabetes Insomnia Pulmonary arterial hypertension Surgical History History of cholecystectomy H/O esophagogastroduodenoscopy History of hernia repair History of colonoscopy Family History Father Hx of diabetes insipidus Mother Hx of diabetes insipidus Social History Household Members: Family Alcohol intake: never Patient Tobacco Use Status: Never used Tobacco Years Smoked: 1yr Second Hand Smoke Exposure: No Current occupational status: retired Review of Systems Const Reports as per HPI Eyes Reports no additional complaints ENT Reports as per HPI Card Reports as per HPI Resp Reports as per HPI GI Reports no additional complaints Reports as per HPI Musc Reports no additional complaints Neuro Reports no additional complaints Psych Reports no additional complaints Endo Reports as per HPI Geronimo/Lymph Reports no additional complaints Aller/Immun Reports no additional complaints Physical Exam Const General: cooperative, healthy appearing, comfortable, no acute distress, well developed, alert and awake Orientation/consciousness: patient oriented x3 Limitations: no limitations HEENT Head: Yes normal to inspection, Yes normocephalic and Yes atraumatic Ears: hearing grossly normal bilaterally Eyes General: appearance normal, both eyes and all related structures Neck Neck: Yes normal visual inspection and Yes trachea midline Chest Chest palpation & inspection: normal inspection of the chest Resp Effort & Inspection: normal respiratory effort and able to speak in complete sentences Cardio Rate: regular rate GI Inspection: Yes normal to inspection General: Yes no CVA tenderness Back/Spine/Pelvis Back: no CVA tenderness Skin General skin exam: no rashes or lesions noted Neuro General: patient oriented x3 Extrem General: Yes normal to inspection Psych Appearance: grossly normal and well kempt Mental Status: mental status grossly normal Speech and movement: Normal speech and movement present and Clear speech present Affect: normal affect Attitude: cooperative Thought process: Normal thought process present Thought content: Normal thought content present Insight: Good insight present (Psych) Judgement: Good judgement present (Psych) Office Procedures Post Void Residual Post Residual Void Post Void Residual (PVR): 48 [id number] Void Residual by ultrasound Results AMB Urinalysis, Automated UA Leukoctes 0 Gabriela/uL Last Edit by Sportskeeda Beth on 09/12/23 11:32 UA Nitrite Negative Last Edit by Individual Digital on 09/12/23 11:32 UA Urobilinogen 0.2 mg/dL Last Edit by Individual Digital on 09/12/23 11:32 UA Protein 15 mg/dL Last Edit by Keegyclemente on 09/12/23 11:32 UA pH 8.0 Last Edit by Individual Digital on 09/12/23 11:32 UA Blood 0 Neno/uL Last Edit by Individual Digital on 09/12/23 11:32 UA Specific Randall 1.010 Last Edit by Individual Digital on 09/12/23 11:32 UA Ketone Negative Last Edit by Oumou Phillipsclemente on 09/12/23 11:32 UA Bilirubin 0 mg/dL Last Edit by Oumou Phillipsclemente on 09/12/23 11:32 UA Glucose 0 mg/dL Last Edit by Oumou Phillipsclemente on 09/12/23 11:32 Results Reviewed Results Reviewed: Laboratory Last Values Urine pH (Auto) 8.0 09/12/23 11:06 Specific Randall (Auto) 1.010 09/12/23 11:06 Urine Protein (Auto) 15 mg/dL 09/12/23 11:06 Glucose (UA)(Auto) 0 mg/dL 09/12/23 11:06 Urine Ketones (Auto) Negative 09/12/23 11:06 Urine Blood (Auto) 0 Neno/uL 09/12/23 11:06 Urine Nitrite (Auto) Negative 09/12/23 11:06 Urine Bilirubin (Auto) 0 mg/dL 09/12/23 11:06 Urine Urobilinogen (Auto) 0.2 mg/dL 09/12/23 11:06 Leukocyte Esterase (Auto) 0 Gabriela/uL 09/12/23 11:06 Date of Service: 09/03/23 EXAMINATION: US RETROPERITONEAL COMPLETE (RENAL) FINDINGS: RIGHT KIDNEY: 13.3 x 5.9 x 5.1 cm (SAG x AP x TRV). The kidney is normal in size, contour, and echogenicity. Renal cortical thickness is normal. No renal calculi or hydronephrosis. A benign small 0.8 cm Bosniak class I mid renal cyst is noted which requires no additional imaging or follow up. No solid renal masses are seen. LEFT KIDNEY: 12.5 x 5.6 x 3.7 cm (SAG x AP x TRV). The kidney is normal in size, contour, and echogenicity. Renal cortical thickness is normal. No calculi or focal parenchymal lesions. No hydronephrosis. BLADDER: Well distended and normal. Bilateral ureteral jets are demonstrated. Prevoid bladder volume is 286 mL. Postvoid bladder volume is 70.7 mL. IMPRESSION: 1. Normal-appearing kidneys. 2. 70.7 mL postvoid residual. Assessment & Plan Assessment & Plan (1) Renal cyst: Code(s): N28.1 - Cyst of kidney, acquired Category: Medical (2) OAB (overactive bladder): Code(s): N32.81 - Overactive bladder Category: Medical Plan In office urinalysis results reviewed with the patient today; as noted above. PVR 48 mL. Continue Myrbetriq as patient reports significant improvement in overactive bladder symptoms she had been experiencing since taking this medication; refill provided. Recent retroperitoneal ultrasound results reviewed with the patient today; as noted above. Discussed bladder triggers/irritants. Patient currently denies any bothersome urinary issues or concerns. Discussed importance of continuing to manage diabetes for improvement in lower urinary tract symptoms as well as for overall health and well-being. Follow-up 6 months with PVR; or sooner with any issues, concerns, and or questions. Orders: Orders AMB Urinalysis Automated 09/12/23 Z13.9 - Encounter for screening, unspecified AMB Post Void Residual by ultrasound 09/12/23 Z13.9 - Encounter for screening, unspecified Patient Instructions: The patient had an opportunity to ask questions regarding the treatment plan. All questions were answered. Physical exam, labs, and imaging were discussed and reviewed in detail. As well as risks, benefits, and discussion of treatment choices. No major barriers to understanding were identified. The patient expressed understanding and agreement with the above treatment plan. The patient was made aware they should contact our office by phone for worsening of their current condition, the appearance of new symptoms, or with any questions or concerns. Compliance is encouraged with any medications and follow up testing that is ordered. It is a privilege to be allowed the opportunity to participate in? your urological care.? Again, if you have any questions or concerns If you have any questions or concerns please do not hesitate to contact me. The office is [phone]. This note is constructed using voice recognition software. While every effort has been made to ensure accuracy financial assistance advisor errors may have been included. Yours sincerely, ACE Jeffers Coding Level of Care Code Est Pt Level 3 (39586) Diagnoses Renal cyst N28.1 OAB (overactive bladder) N32.81 CPT Codes Post Residual Void - PVR CPT Code: 70163-Isdp Void Residual by ultrasound ([id number])
== END 2023-09-12 11:35 | disposition home or self-care (01) ==
PROVIDERS: PCP General Practice; Visit Provider Nurse Practitioner Family
DX: N28.1 Cyst of kidney, acquired (principal); N32.81 Overactive bladder
CPT/HCPCS: 99213

== ENCOUNTER → 2023-09-12 10:45 | Outpatient (BNVA) | payer OTHER, SELFPAY | PROVIDERS: PCP General Practice; Visit Provider Nurse Practitioner Family | DX: N28.1 Cyst of kidney, acquired (principal); N32.81 Overactive bladder | CPT/HCPCS: 51798; 81003; 99212 ==

== ENCOUNTER 2023-09-23 11:37 | Outpatient (REF) | payer OTHER, SELFPAY ==
[2023-09-23 12:43] LABS: Rheumatoid Factor < 13.0 IU/mL (<15.0)
[2023-09-29 15:28] LABS: Anti Nuclear Antibody Screen NEGATIVE (NEGATIVE)
== END 2023-09-23 11:38 | disposition home or self-care (01) ==
LOC: HO.LAB 11:37
PROVIDERS: PCP General Practice; Visit Provider Physical Medicine & Rehabilitation
DX: M54.50 Low back pain, unspecified (principal); R10.2 Pelvic and perineal pain
CPT/HCPCS: 36415; 86038; 86431

== ENCOUNTER 2023-10-02 09:06 | Outpatient (AMB) | payer OTHER, SELFPAY ==
--- NOTE | 2023-10-02 09:07 | MHC.OFFVIS ---
Vital Signs 10/02/23 09:13 Height 5 ft Weight 173 lb BMI 33.8 Intake Visit Reasons: OV-T-spine pain-Review lab and Xray-next available Intake Note: Snehal is a 73 year old female who presents to the office today for a review of her labs and x-rays for her thoracic back pain. Patient expressing she is doing okay today with no complaints of back pain, she says her pain is mainly in her abdomen region and radiates into her back. She states she has been seeing multiple doctors and they are unable to help her figure out why her abdomen pain is radiating to her back. Apartment Leasing Specialist Required: Yes Apartment Leasing Specialist Language: Senior Grants Officer Name: [id number] Allergies morphine [MORPHINE] Allergy (Mild, Verified 10/02/23 09:13) NAUSEA, VOMITING, DIZZINESS, HOT FLASHES lactose Adverse Reaction (Unknown, Verified 10/02/23 09:13) GI upset Medication List - Last Reconciled 10/02/23 by Katie Diaz MD albuterol sulfate 90 mcg/actuation (ProAir HFA) 2 puffs inhalation Q4-6H PRN amlodipine 10 mg PO DAILY aspirin 81 mg PO DAILY atorvastatin 40 mg PO BEDTIME blood sugar diagnostic As directed budesonide-formoterol 160-4.5 mcg/actuation (Symbicort) 2 puffs PO BID cholecalciferol (vitamin D3) (Vitamin D3) 50 mcg PO DAILY cyanocobalamin (vitamin B-12) 1,000 mcg PO DAILY furosemide (Lasix) 20 mg PO DAILY PRN 30 days gabapentin 100 mg PO BID glipizide ER 5 mg PO QAM lancets As directed lidocaine 5% (Lidoderm) 1 patch topical DAILY 30 days lczxlo-wzodilrr-mkuwykn 24,000-76,000 -120,000 unit (Creon) 2 caps PO BID 30 days losartan 100 mg PO DAILY melatonin 10 mg PO BEDTIME metformin ER 1,000 mg PO BID metoprolol succinate ER 100 mg PO DAILY mirabegron ER (Myrbetriq) 25 mg PO DAILY 90 days mycophenolate mofetil 1,000 mg PO BID nintedanib (Ofev) 100 mg PO Q12H 30 days omeprazole 20 mg PO BID ondansetron 4 mg PO Q8H PRN 30 days simethicone 180 mg PO BID sitagliptin phosphate 50 mg PO QAM sucralfate 2 grams (2 x 1 gram) PO DAILY trazodone 100 mg (2 x 50 mg) PO BEDTIME HPI Comments Details: 09/04/23 History of ILD, memory loss, DM. Back pain only started 4 months ago. She denies inciting injuries. She does not think she was doing anything to provoke. She says this is new, affecting her left abdomen going around the back. Then she has a separate left sided back that goes to leg pain. When we confirmed history further, these abdominal and back pain came together. When she lays down, it is hard for her to get up again. 1 Reports numbness, she has history of DM neuropathy. Denies weakness. No PT yet. On chronic percocet for back pain - she says that she has chronic left sided back pain which is now worse. Apparently, based on records review, she had a thoracic xray which reported possible DISH, therefore referred to us. She says pain is lower back and abdominal, not thoracic though. RF and ARPIT were negative. Saw that she actually saw Rheumatology Griselda Marcelo in July, and has a follow up on 10/21/23 scheduled. Xrays showed degenerative changes as below. Today she is here alone, seen with language interpreter. Denies any pain. Denies back pain. Denies groin pain. She does have some pain going down to left leg and says she has arthritis on right ankle. She has not seen GI since May 2023. She still says pain on left abdominal area. [facility] Medical History Renal cyst Left flank pain Thoracic spine pain Abnormal chest x-ray Lower abdominal pain JAREK (obstructive sleep apnea) Colon cancer screening Hepatic steatosis JAREK (obstructive sleep apnea) Bibasilar crackles Dyspnea Chronic restrictive lung disease ILD (interstitial lung disease) Memory loss COPD (chronic obstructive pulmonary disease) OAB (overactive bladder) History of postoperative nausea and vomiting Diabetes Insomnia Pulmonary arterial hypertension Surgical History History of cholecystectomy H/O esophagogastroduodenoscopy History of hernia repair History of colonoscopy Family History Father Hx of diabetes insipidus Mother Hx of diabetes insipidus Social History Household Members: Family Alcohol intake: never Patient Tobacco Use Status: Never used Tobacco Years Smoked: 1yr Second Hand Smoke Exposure: No Current occupational status: retired Physical Exam Vital Signs: BMI result Body Mass Index 33.8 Constitutional: Patient appears to be in no acute distress, well nourished and well developed. Patient was appropriately conversant and oriented. MSK: No specific abnormalities found on inspection of the spine and all extremities. Mild tenderness over lumbar paraspinals, and SI, left only. No tenderness over right side. No tenderness over spinous processes or facets. No GT tenderness. Abdomen is soft, no palpable mass. Lumbar ROM was full. Noted hip weakness, Left worse than right. Straight-leg raising test negative. FABERE test positive left-sided back pain. Hip flexion bilateral 4/5. Rest of strength testing 5/5. Neurological: Lawson?s negative bilaterally. Babinski was down going bilaterally. Clonus was negative. Gait is non-antalgic without loss of balance. Results Reviewed Results Reviewed: Ordering Physician: Katie Charles Date of Service: 09/04/23 Procedure(s): XR sacroiliac joint min 3V Accession Number(s): [id number] cc: Aarti Thacker; Katie Charles EXAMINATION: XR LUMBAR SPINE XR SACROILIAC JOINTS XR HIP, BILATERAL CLINICAL INDICATION: Back pain, low back pain. COMPARISON: X-ray thoracic spine 05/15/2023, left hip 03/28/2016, CT abdomen and pelvis 09/25/2021. TECHNIQUE: 3 views of the sacroiliac joints. AP view of the pelvis as well as AP and lateral views of each hip. 3 views of the lumbar spine. FINDINGS: LUMBAR SPINE: Diffuse demineralization. Facet arthritis in the lower lumbar spine. Mild multilevel lumbar spondylosis. BILATERAL SACROILIAC JOINTS: Diffuse demineralization. Moderate degenerative changes in the bilateral sacroiliac joints with joint space narrowing and hypertrophic change. BILATERAL HIPS: Diffuse demineralization. Pubic symphysis maintained. Mild degenerative changes in the bilateral hips with joint space narrowing and hypertrophic change. Bilateral hip alignment preserved. Extensive vascular calcifications. XR/XR sacroiliac joint min 3V IMPRESSION: 1. Mild multilevel lumbar spondylosis. 2. Moderate degenerative changes bilateral sacroiliac joints. 3. Mild degenerative changes bilateral hips. 4. Diffuse demineralization. Additional imaging with CT scan or MRI should be considered for further evaluation if there is clinical concern for fracture or other underlying pathology.. Assessment & Plan Assessment & Plan (1) Left flank pain, chronic: Code(s): R10.9 - Unspecified abdominal pain; G89.29 - Other chronic pain Category: Medical (2) DISH (diffuse idiopathic skeletal hyperostosis): Comment: of thoracic spine Code(s): M48.10 - Ankylosing hyperostosis [[place]], site unspecified Category: Medical (3) Lumbar radiculopathy: Code(s): M54.16 - Radiculopathy, lumbar region Category: Medical Plan Chronic abdominal pain that wraps around towards lower thoracic/upper lumbar. There is also radiation down to the left leg. X-ray findings as above. She has already seen Rheumatology and GI. She has not yet done any PT. No lumbar MRI yet. Referring her to PT. Patient had undergone adequate conservative management including [PT] without improvement of condition. It would be reasonable to obtain further imaging such as MRI. An MRI would help rule out any serious condition, guide treatment and assess prognosis for recovery. Specifically ruling out left L3-4 or L4-5 disc herniation that would explain her symptoms. Assessment and plan discussed with patient, and patient was agreeable. All questions were answered thoroughly. Follow up after MRI. Katie Diaz MD, SULEMA Board Certified, [place] [employer] and [employer] (ABPMR) Board Certified, [place] [employer] Electro[employer] (ABEM) Orders: Orders PT Evaluation and Treatment Today G89.29 - Other chronic pain, M48.10 - Ankylosing hyperostosis [[place]], site unspecified, M54.16 - Radiculopathy, lumbar region, R10.9 - Unspecified abdominal pain MR lumbar spine wo con Today G89.29 - Other chronic pain, M48.10 - Ankylosing hyperostosis [[place]], site unspecified, M54.16 - Radiculopathy, lumbar region, R10.9 - Unspecified abdominal pain Coding Level of Care Code Est Pt Level 4 (58763) Diagnoses Left flank pain, chronic R10.9; G89.29 DISH (diffuse idiopathic skeletal hyperostosis) M48.10 Lumbar radiculopathy M54.16
[2023-10-02 09:13] VITALS: BMI 33.8
== END 2023-10-02 09:34 | disposition home or self-care (01) ==
PROVIDERS: PCP General Practice; Visit Provider Physical Medicine & Rehabilitation
DX: M54.16 Radiculopathy, lumbar region (principal); R10.9 Unspecified abdominal pain; G89.29 Other chronic pain; M48.10 Ankylosing hyperostosis [Forestier], site unspecified
CPT/HCPCS: 99214

== ENCOUNTER → 2023-10-02 09:06 | Outpatient (BNVA) | payer OTHER, SELFPAY | PROVIDERS: PCP General Practice; Visit Provider Physical Medicine & Rehabilitation | DX: M48.10 Ankylosing hyperostosis [Forestier], site unspecified (principal); M54.16 Radiculopathy, lumbar region; R10.9 Unspecified abdominal pain; G89.29 Other chronic pain | CPT/HCPCS: 99212 ==

== ENCOUNTER 2023-10-16 08:44 | Outpatient (REF) | payer OTHER, SELFPAY | END 2023-10-16 08:45 | disposition home or self-care (01) | LOC: HO.MAMMO 08:44 | PROVIDERS: PCP General Practice; Visit Provider General Practice | DX: Z12.31 Encounter for screening mammogram for malignant neoplasm of breast (principal) | CPT/HCPCS: 77063; 77067 ==

== ENCOUNTER → 2023-10-16 08:45 | Outpatient (BNV) | payer OTHER, SELFPAY | PROVIDERS: PCP General Practice; Visit Provider Radiology Diagnostic Radiology | DX: Z12.31 Encounter for screening mammogram for malignant neoplasm of breast (principal) | CPT/HCPCS: 77063; 77067 ==

== ENCOUNTER 2023-11-04 18:59 | Outpatient (REF) | payer OTHER, SELFPAY ==
--- NOTE | ~2023-11-04 | MR_ITS ---
EXAMINATION: MR LUMBAR SPINE WITHOUT CONTRAST CLINICAL INFORMATION: Ankylosing hyperostosis. COMPARISON: Plain films of the lumbar spine 09/04/2023. TECHNIQUE: MRI of the lumbar spine was obtained without contrast. FINDINGS: VERTEBRAL BODIES AND PARASPINAL STRUCTURES: There is a mild grade 1 anterolisthesis of L4 on L5. There is disc desiccation at the levels of L3-L4 and L4-L5. Intervertebral disc heights are maintained. The vertebral bodies have normal height and contour, and no fractures are demonstrated. There are mild degenerative endplate signal changes anteriorly at L3-L4 and at L5-S1 towards the left. Overall, marrow signal is homogenous. The visualized retroperitoneal and pelvic structures are unremarkable. CONUS MEDULLARIS AND CAUDA EQUINA: Normal, terminating at the level of L1. The lower thoracic spinal cord appears normal. The cauda equina nerve roots and filum terminale appear normal. SPINAL LEVELS: L1-L2: There is mild bilateral facet arthropathy. There is a shallow left-sided disc protrusion without significant mass effect and there is no central stenosis. The neural foramina are patent bilaterally. L2-L3: There is mild bilateral facet arthropathy. Disc contour is normal. There is no central stenosis or foraminal narrowing. L3-L4: There is mild to moderate bilateral facet arthropathy. There is a small left-sided disc protrusion without mass effect on the thecal sac and there is no central stenosis. The neural foramina are patent bilaterally. L4-L5: There is moderate to severe bilateral facet arthropathy with ligamenta flava hypertrophy and small facet joint effusions. There is mild unroofing of the disc as a result of the anterolisthesis and is pressing the ventral thecal sac. There is no central stenosis. There is a left foraminal disc protrusion impinging on the exiting left L4 nerve root. L5-S1: There is moderate right and mild left facet arthropathy. There is a shallow posterior disc protrusion which mildly effaces the ventral thecal sac with no central stenosis. There are small inferior foraminal protrusions without exiting nerve root impingement. MR/MR lumbar spine wo con IMPRESSION: 1. At L4-L5 there is moderate to severe facet arthropathy and there is a grade 1 anterolisthesis. There is no central stenosis. There is a left foraminal disc protrusion impinging on the exiting left L4 nerve root. 2. At L5-S1 there is facet arthropathy and there is a shallow posterior disc protrusion. There is no central stenosis. There are small inferior foraminal protrusions without exiting nerve root impingement. 3. Milder spondylitic and facet arthropathic changes are demonstrated at other levels as described above. Electronically signed by: Manuel Rowe MD 11/29/2023 03:08 PM EDT
== END 2023-11-04 19:00 | disposition home or self-care (01) ==
LOC: HO.MRI 18:59
PROVIDERS: PCP General Practice; Visit Provider Physical Medicine & Rehabilitation
DX: M48.10 Ankylosing hyperostosis [Forestier], site unspecified (principal); R10.9 Unspecified abdominal pain; G89.29 Other chronic pain; M54.16 Radiculopathy, lumbar region
CPT/HCPCS: 72148

== ENCOUNTER 2023-11-06 10:00 | Outpatient (RCR) | payer OTHER, SELFPAY ==
--- NOTE | 2023-10-13 16:09 | MHC.PT.EP ---
[facility] [place] Office [place] Office [place] Office [address] Lauren Barroso [address] [phone] F: [phone] F: [phone] F: [phone] F: [phone] Physical Therapy Plan of Care Date of Evaluation: 10/13/23 Date of Surgery: N/A Diagnosis: ankylosing hyperotosis (RL) Assessment: pt is a 73 y/o female presenting to physical therapy w/ referring diagnosis of ankylosing hyperostosis; unspecified abdominal pain. pt's RUQ pain that radiates to the flank does not seem to have a musculoskeletal component. I am concerned she may have liver involvement. She started taking a new medication for her ILD around the time she started to get this pain. Questionable side effect. pt's pain also does not follow a specific enough pattern to have true MSK component. Her ankylosing hyperostosis is going to be the main focus of our treatment session. I advised her to call the provider who gave her the Ofev to discuss potential side effects. pt verbalized understanding. Impairments include pain, decreased range of motion, decreased strength, impaired functional mobility, impaired postural awareness, and altered ambulation mechanics. pt is a fair candidate for skilled PT due to age, potential remediation of impairments, typical disease/condition progression and prognosis, comorbidities, and motivation. pt would benefit from skilled PT intervention to provide a tailored strengthening and stretching exercise program, functional training, gait training, postural re-training, neuromuscular re-education, modalities as needed for pain, equipment safety demonstration. Frequency and Duration: The patient will be seen 2x/wk for 3 wks Short Term Goals: pt will be I w/ HEP to promote self-management of condition. pt will demo proper sitting posture w/ lumbar roll to promote neutral spine w/ seated ADLs. Overcoiler Goals: pt will report a statistically significant improvement in self-reported outcome measure, Selena, to promote return to PLOF. pt will improve lumbar flexion to at least 75% to promote ease in lower body ADLs. Treatment Plan: Modalities to reduce pain, spasms and effusion. Manual therapy to restore motion and function. Therapeutic exercise to improve strength and flexibility. Neuromuscular re-education for posture and balance. Therapeutic activities to return to functional activities of daily living. Electronically signed by: Babs Cortes PT, DPT Please sign and return to therapist. Thank you for your referral.
--- NOTE | 2023-11-12 16:31 | MHC.PT.DC ---
[facility] [place] Office [place] Office [place] Office [address] Lauren Barroso [address] [phone] F: [phone] F: [phone] F: [phone] F: [phone] Physical Therapy Discharge Report Diagnosis: ankylosing hyperotosis (RL) Date of Surgery: N/A Date of Evaluation: 10/13/23 Date of Discharge: 11/12/23 Treatments to Date: 6 Cancellations to Date: 2 No Shows to Date: 0 Discharge Status: Improved Function Independent with HEP Discharge Summary: pt appreciates an overall improvement in her pain. HEP provided and reviewed. Pt verbalized and demonstrated an understanding of all exercises. Pt is d/c from this PT POC. Electronically signed by: Babs Wern, PT, DPT Please sign and return to therapist. Thank you for your referral.
== END 2023-11-12 16:32 | disposition home or self-care (01) ==
LOC: HO.PT 10:00
PROVIDERS: PCP General Practice; Visit Provider Physical Medicine & Rehabilitation
DX: M48.10 Ankylosing hyperostosis [Forestier], site unspecified (principal); R10.9 Unspecified abdominal pain; G89.29 Other chronic pain
CPT/HCPCS: 97110; 97163

== ENCOUNTER 2023-11-07 07:33 | Outpatient (REF) | payer OTHER, SELFPAY ==
[2023-11-07 07:48] LABS: MANUAL DIFF FLAG NO
[2023-11-07 08:01] LABS: Basophils Absolute Auto 0.1 X10*3/uL (0.0-0.2); Basophils Percent Auto 0.9 % (0-2); Eosinophils Absolute Auto 0.1 X10*3/uL (0.0-0.4); Eosinophils Percent Auto 1.6 % (0-4); Hematocrit 40.3 % (37.0-47.0); Hemoglobin 13.7 g/dl (12.0-16.0); Imm Gran Abs Auto 0.01 X10*3/uL (0.00-0.03); Imm Gran Pct Auto 0.2 % (0.0-0.4); Lymphocytes Absolute Auto 2.9 X10*3/uL (1.2-4.9); Lymphocytes Percent Auto 45.6 % (20-40); Mean Corpuscular Hemoglobin 32.5 pg (27.0-33.0); Mean Corpuscular Volume 95.7 fL (80.0-98.0); Mean Platelet Volume 11.2 fL (9.4-12.3); Monocytes Absolute Auto 0.4 X10*3/uL (0.1-1.2); Monocytes Percent Auto 6.5 % (2-11); Neutrophils Absolute Auto 2.9 x10*3/uL (2.0-8.3); Neutrophils Percent Auto 45.2 % (45-73); Platelet Count 232 X10*3/uL (160-400); Red Blood Count 4.21 X10*6/uL (4.20-5.50); White Blood Count 6.3 X10*3/uL (4.8-10.8)
[2023-11-07 08:36] LABS: Alanine Aminotransferase 19 U/L (0-31); Albumin Level 4.1 g/dL (3.5-5.0); Alkaline Phosphatase 78 U/L (39-117); Anion Gap 10 (12-20); Aspartate Amino Transferase 18 U/L (5-31); Bilirubin Direct 0.1 mg/dL (0.0-0.5); Bilirubin Total 0.5 mg/dL (0.0-1.0); Blood Urea Nitrogen 12 mg/dL (9-16); Calcium 9.9 mg/dL (8.4-10.2); Carbon Dioxide 33 mmol/L (22-29); Chloride 105 mmol/L (96-108); Estimated Glomerular Filt Rate > 60; Glucose Random 126 mg/dL (60-115); Potassium 4.3 mmol/L (3.3-5.1); Sodium 144 mmol/L (135-145); Total Protein 7.6 g/dL (6.5-8.0)
[2023-11-07 08:45] LABS: Erythrocyte Sedimentation Rate 27 MM/HR (0-20)
[2023-11-07 08:54] LABS: Vitamin B12 497 pg/mL (200-900)
[2023-11-11 16:43] LABS: Anti Nuclear Antibody Screen NEGATIVE (NEGATIVE)
[2023-11-12 11:34] LABS: SARS COV2 IgG Positive (Negative)
== END 2023-11-07 07:34 | disposition home or self-care (01) ==
LOC: HO.LAB 07:33
PROVIDERS: PCP General Practice; Visit Provider Hospitalist
DX: U09.9 Post COVID-19 condition, unspecified (principal); J84.9 Interstitial pulmonary disease, unspecified; E11.65 Type 2 diabetes mellitus with hyperglycemia
CPT/HCPCS: 36415; 80048; 80076; 82607; 85025; 85652; 86038; 86769

== ENCOUNTER 2023-12-01 10:39 | Outpatient (AMB) | payer OTHER, SELFPAY ==
[2023-12-01 10:43] VITALS: BP 120/60; PULSE 69; O2SAT 97; BMI 32.6
--- NOTE | 2023-12-01 10:43 | MHC.OFFVIS ---
Vital Signs 12/01/23 10:43 Height 5 ft Weight 167 lb BMI 32.6 BP 120/60 Blood Pressure Location Lt brachial Position Sitting Pulse 69 Pulse Source Pulse Oximeter Pulse Oximetry (%) 97 Oxygen Delivery Method Room Air Intake Visit Reasons: Pulmonary Hypertension [employer] Required: No Allergies morphine [MORPHINE] Allergy (Mild, Verified 12/01/23 10:45) NAUSEA, VOMITING, DIZZINESS, HOT FLASHES lactose Adverse Reaction (Unknown, Verified 12/01/23 10:45) GI upset HPI Comments Details: The patient is a 73-year-old woman with known pulmonary hypertension. She also has obstructive airway disease and has been on short-acting beta agonist. She has been having increasing shortness of breath. And she has been using her rescue inhaler with partial response. At this point will start her on a maintenance inhaler. In addition to that in view of her pulmonary hypertension will go ahead and request an overnight oximetry to assess her for nocturnal hypoxia. She does have any evidence of any nocturnal hypoxia will be imperative to start her on oxygen supplementation to treat her underlying pulmonary hypertension. 04/29/2022 the patient is here for a pulmonary follow-up visit. Recently she went to the ER because of worsening respiratory symptoms and cough. There she had a chest x-ray without any significant changes show she does have the reticulonodular opacities her interstitial lung disease. Since we last spoke the patient was supposed to undergo blood work and she has not done as of yet. In addition to that the patient did not feel healthy enough to have a sleep study. Therefore she did not have that either. The patient is frustrated that she is no better. Although she also did not follow through with the recommendations. She was provided with prednisone in the hospital and did help her symptoms. She has completed the course at this time. She also finished a course of antibiotics. Again, she has significant interstitial lung disease. Her total lung capacity is decreased consistent with chronic restrictive lung disease from the interstitial lung disease. The etiologies still is unclear. Patient understands the blood work to help try to clear up the etiology of the fibrosis. Indeed, if this fibrosis is progressive then anti fibrotic agents will be warranted. Since the patient is developing significant cough and shortness of breath we did taken for brief walking oximetry in the patient was able to maintain a pulse ox in the low 90s. Therefore the patient does not qualify for oxygen. based on her ongoing symptoms will go ahead and put her on a small dose of prednisone to see if we can stabilize her condition as we move further. The patient understands the importance of the blood work that she needs to get prior to the next visit. In addition to that we briefly spoke about lung biopsies. The patient is reluctant to undergo any invasive or semi-invasive interventions at this time. 05/20/2022 the patient is here for a pulmonary follow-up visit. Overall the patient has been feeling a little better. She is tolerating the prednisone. We did review all her blood work. No evidence of any connective tissue conditions or hyper sensitivity reaction to we can identify. Therefore, no clear etiology for her interstitial lung disease. We talked about diagnostic interventions which is biopsies. However, explained to the patient that this may not necessarily change the overall treatment plan. Therefore will continue to assess the response to prednisone. I am hopeful that she response. we can better assess this will be repeating her imaging studies. In the meantime she continues to cough. The benzo night work great for her cough. Although the not covered. We did look for different alternatives including going with good Rx to see if she can get him on a lower walker. These probably be the best option. Also, we did talk about the if there is any evidence of any progression of her pulmonary fibrosis to suggest progressive idiopathic pulmonary fibrosis then we can consider antifibrotic therapies at that time. 06/18/2022 the patient is here for a pulmonary follow-up visit. The patient overall is feeling better. She is is bonding well to the prednisone. Only taking 10 mg. Her prescription for the Benzonate is with still that [employer] and she did take a very low walker which she is happy about. Her sugars are reasonable staying in the normal range. We did talk about if there is any worsening of the interstitial lung disease suggesting progressive pulmonary fibrosis then we will start Ofev. While give her some reading material in order for her to read up on it. I do believe that she will benefit from the medication if there is any evidence of progression of disease. She does continue to have issues with her sleep. She does wake up tired with headaches. Will perform an overnight oximetry to make sure that she does not need oxygen supplementation. In the meantime she continues with respiratory therapy with good effect. She does continue the Bentson eyes again with very good response improving her cough overall. 07/29/2022 the patient is here for pulmonary follow-up visit. She is feeling a little better on the prednisone and also continues on the Bentson eyes with good effect. Her cough is overall better. She still has some dyspnea on exertion with activity which is mild severity. We did review her last CT scan of the chest that she had in June 2022 demonstrating interval worsening of the interstitial lung disease as well as evidence of scarring and some evidence of ground-glass opacities. She therefore, based on the worsening disease I am concerned that she continued to have progressive symptoms. At the [facility] progressive interstitial lung disease with pulmonary fibrosis I do believe that she will be a good candidate for Ofev. Will go ahead and request a prior approval from her insurance company. She is in the meantime she continues on the prednisone. She is concerned about the side effects of prednisone but I do believe that she needs additional anti-inflammatory effect due to her ongoing symptoms and findings. Therefore, will go ahead and start him on CellCept. We did talk about potential biopsy. The patient is going to think about it. Will try these medication changes at this time. However, if the patient is no better or there is any worsening of disease then will have to further consider a biopsy. If the patient does need a biopsy and wedge biopsy will be passed 10/29/2022 the patient is here for pulmonary follow-up visit. She continues to have cough and also shortness of breath with activity. I did had sent her prescription for mycophenolate when she was last here. 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 He has been now about 3 months. Explained to her that it appears that she has interval worsening of her interstitial lung disease. She also has diabetes was difficult to increase her prednisone. Mycophenolate will be a very good option in order to decrease the inflammation and hopefully decrease the risk of further scarring. The patient also reviewed the CT scan with me. I did show her the CT scan she had back in 2021 and a CAT scan of 2022 demonstrating worsening of disease. The patient will start the mycophenolate at this time. I did write it down for her so she can start with 1 daily and then increase it to twice a day. In November she is going to come in and get x-rays and also blood work and will follow-up with her at that time. Will plan to repeat her PFTs sometime in February. Also we talked about Ofev. This is a medication we have sent to the pharmacy. We did send a script but not clear what happened as far as the process. I did reach out to our staff in the office to try to get an update of what occurred with the medication Request. Again I reviewed the blood work that we did with her. No evidence of any connective tissue disease. No evidence of any hypersensitivity pneumonitis. Her scarring is primarily at the base suggesting the possibility of UIP versus I fibrotic NSIP. Will see her response to therapy. If the patient does not have any significant response to the therapy then will consider surgical biopsy. 12/20/2022 the patient is here for a pulmonary follow-up visit. The patient continues to be about the same. She does have the frequent constant cough. It is nonproductive in nature. Responds well to the current medications. She also has shortness of breath with activity. Does not feel like she is getting any worse from the last visit. The patient did have a repeat chest x-ray demonstrating some interval worsening though. Therefore she understands that this interstitial lung disease may indeed be progressive which is a concern. She has been on mycophenolate although she is only taking 1 tablet daily with which she was supposed to be taking more. Therefore I did write down the instructions on how she is to take the mycophenolate. She is going to titrate up to hopefully 2 tablets b.i.d.. Blood work was reassuring without any evidence of any organ toxicity. When she reaches she is the 2 g a day does she will go ahead and have additional blood work. When she is on 2 g the patient will also cut down on the prednisone. We did talk about Ofev has good option for her specially if indeed this appears to be a per aggressive interstitial fibrosis. Therefore, will see how she responds to this current increase medications she will have a repeat chest x-ray and if there is any worsening of symptoms and or imaging studies then will go ahead and start Ofev. 03/18/2023 the patient is here for a pulmonary follow-up visit. Overall the patient has been doing well. Her cough is overall better. She still has dyspnea on exertion mild in severity. She continues to take the prednisone 10 mg daily and also was able to increase the mycophenolate now taking 1000 mg in the morning and 500 mg at nighttime. She did have a chest x-ray which I personally reviewed. I will see any significant changes although which still waiting for the final read. The patient has not started the also bibasilar yet. I am unsure if it was not approved by the insurance. At this point will do is we will go ahead and maximize her mycophenolate to 1000 mg twice a day and also she can decrease the prednisone some because of her history of diabetes. Will plan to repeat a CT scan in June closer to her last CT scan to see if there is any progression of the interstitial lung disease. If there is any progression of the eye LD then starting her on Ofev will be very important. If the patient has any worsening symptoms prior to the next visit she will call the office for an earlier assessment. Otherwise will follow-up then. 07/21/2023 the patient is here for a pulmonary follow-up visit. She has been tolerating mycophenolate well. She is now up to 2 g a day. She is off the prednisone altogether which is reassuring. She continues shortness of breath with activities about the same. She is also complaining of left-sided flank discomfort. The etiology discomfort still not clear though is bothersome to her. She did have a CT scan of the chest beginning of the month June 2023 which I personally reviewed with her. She does have the evidence of the reticular changes primarily in the periphery of the bases which is very suspicious for UIP pattern or IPF. She has been on the mycophenolate and seems to be helping. She is off the prednisone which is reassuring. Still an antifibrotic agent will be helpful in decreasing the degree of progression. We did look at previous CT scans from 2019 to 2022 in 2023. Seems to be some slight progression from 2021 to now. Therefore will go ahead and request Ofev at this time. She understands about the side effects. In addition to that she will undergo blood work to make sure she is tolerating the medicine. Send try Lidoderm patch to the affected area regarding the abdominal discomfort. 12/01/2023 the patient is here for a pulmonary follow-up visit. The patient has been doing fairly well with the medications. She is taking 2 g of mycophenolate daily in addition to the Ofev 100 mg daily. Seems to be tolerating well without any significant GI effects. She did have issues with 150 mg dose. In the meantime she continues exercise regularly. She does have shortness of breath with activity but she is usually able to walk for about a now our. Sometimes she has to stop because of more fatigue of her legs. The patient does not use any oxygen which is reassuring. She has not had any imaging studies in June. Will go ahead and plan to repeat her PFTs and chest x-ray within the next 3 months and will review. Hopefully we can decrease her mycophenolate dose some. The patient also will get vaccines. She is going to get her flu and her COVID booster. She knows to stop her mycophenolate several days before and several days after. The patient will also get her RSV vaccine as well she would do the same protocol. She does have a respiratory inhalers. Right now she is stable. 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 Renal cyst Left flank pain Thoracic spine pain Abnormal chest x-ray Lower abdominal pain JAREK (obstructive sleep apnea) Colon cancer screening Hepatic steatosis JAREK (obstructive sleep apnea) Bibasilar crackles Dyspnea Chronic restrictive lung disease ILD (interstitial lung disease) Memory loss COPD (chronic obstructive pulmonary disease) OAB (overactive bladder) History of postoperative nausea and vomiting Diabetes Insomnia Pulmonary arterial hypertension Surgical History History of cholecystectomy H/O esophagogastroduodenoscopy History of hernia repair History of colonoscopy Family History Father Hx of diabetes insipidus Mother Hx of diabetes insipidus Social History Household Members: Family Alcohol intake: never Patient Tobacco Use Status: Never used Tobacco Years Smoked: 1yr Second Hand Smoke Exposure: No Current occupational status: retired Review of Systems Const Denies fatigue, Denies fever(s), Denies night sweats, Denies poor appetite and Denies weight loss Eyes Details: glasses Reports requires corrective lenses ENT Reports Normal hearing present, Denies dental pain, Denies dysphagia, Denies hearing loss, Denies mouth pain, Denies odynophagia, Denies throat swelling, Denies tongue swelling and Reports other (Dentition adequate) Card Reports dyspnea on exertion Resp Reports cough and Reports dyspnea on exertion GI Reports abdominal pain, Denies melena, Denies bloating, Denies hematochezia, Denies constipation, Denies GI cramping, Denies dysphagia, Denies excessive flatus, Denies early satiety, Denies heartburn, Reports diarrhea, Denies nausea, Denies odynophagia, Denies vomiting and Denies hematemesis Skin/Breast Denies pruritus, Denies lesions, Denies rash and Denies jaundice Neuro Reports Normal hearing present and Denies Abnormal speech present Endo Denies fatigue Aller/Immun Denies throat swelling and Denies tongue swelling Physical Exam Vital Signs: Last Vital Signs Pulse 69 12/01/23 10:43 BP 120/60 12/01/23 10:43 Pulse Ox 97 12/01/23 10:43 Oxygen Delivery Method Room Air 12/01/23 10:43 BMI result Body Mass Index 32.6 Const General: alert HEENT General nose exam: Abnormal external nose present and Nasal discharge present Neck Neck: Yes normal visual inspection, Yes full ROM and Yes no lymphadenopathy Chest Chest palpation & inspection: normal inspection of the chest Resp Auscultation: rales bilateral and diminished lung sounds Cardio Rate: regular rate Rhythm: regular rhythm Heart sounds: S1 normal heart sound present and S2 normal heart sound present GI Palpation (GI): Soft to palpation and nontender Auscultation: normal bowel sounds General: Yes no CVA tenderness Back/Spine/Pelvis Back: no CVA tenderness Skin General skin exam: rashes and/or lesions noted Neuro Cranial nerves: Yes Normal hearing present Speech: No Abnormal speech present Extrem General: No clubbing, No cyanosis and Yes edema Assessment & Plan Assessment & Plan (1) Pulmonary arterial hypertension: Comment: secondary Code(s): I27.21 - Secondary pulmonary arterial hypertension Category: Medical (2) COPD (chronic obstructive pulmonary disease): Code(s): J44.9 - Chronic obstructive pulmonary disease, unspecified Category: Medical Qualifiers: COPD type: chronic bronchitis Chronic bronchitis type: simple Qualified Code(s): J41.0 - Simple chronic bronchitis (3) ILD (interstitial lung disease): Comment: progressively worsening based on CT chest Code(s): J84.9 - Interstitial pulmonary disease, unspecified Category: Medical (4) Chronic restrictive lung disease: Code(s): J98.4 - Other disorders of lung Category: Medical Plan continue symbicort WILFRIDO as needed continue cellcept, up to 2gm/day bloodwork continue OFEV 100mg cough medication: benzonates, rx with goodrx PFTs/CXR repeat CT chest to assess progression of disease 06/2024 Sleep with HOB elevated F/U 3 months with PFTs Orders: Orders XR chest 2V Today J41.0 - Simple chronic bronchitis, J84.9 - Interstitial pulmonary disease, unspecified PFT pulmonary function test Today J41.0 - Simple chronic bronchitis, J84.9 - Interstitial pulmonary disease, unspecified Coding Level of Care Code Est Pt Level 4 (56003) Complex EM visit Add On G2211 Diagnoses Pulmonary arterial hypertension I27.21 Simple chronic bronchitis J41.0 COPD type: chronic bronchitis Chronic bronchitis type: simple ILD (interstitial lung disease) J84.9 Chronic restrictive lung disease J98.4 Time Spent (min) 17
== END 2023-12-01 11:07 | disposition home or self-care (01) ==
PROVIDERS: PCP General Practice; Visit Provider Hospitalist
DX: I27.21 Secondary pulmonary arterial hypertension (principal); J41.0 Simple chronic bronchitis; J84.9 Interstitial pulmonary disease, unspecified; J98.4 Other disorders of lung
CPT/HCPCS: 99214; G2211

== ENCOUNTER → 2023-12-01 10:39 | Outpatient (BNVA) | payer OTHER, SELFPAY | PROVIDERS: PCP General Practice; Visit Provider Hospitalist | DX: J84.9 Interstitial pulmonary disease, unspecified (principal); J98.4 Other disorders of lung; J41.0 Simple chronic bronchitis; I27.21 Secondary pulmonary arterial hypertension; Z79.899 Other long term (current) drug therapy | CPT/HCPCS: 99212 ==

== ENCOUNTER 2023-12-03 08:58 | Outpatient (AMB) | payer OTHER, SELFPAY ==
--- NOTE | 2023-12-03 08:59 | MHC.OFFVIS ---
Intake Visit Reasons: OV-T-spine pain-two month follow up Intake Note: Snehal is a 73 year old female who presents to the office today for a T spine pain 2 month follow up. Pt states when she takes the oxycodone her pain is much better but if she doesn't take it she will get a lot of pain. Pt states she has pain all the time without pain medication. Pt has started PT and states it has helped a little. Pt here for MRI review as well. Stockroom Selector Required: Yes Stockroom Selector Language: Central Office Supervisor Name: Charly ([id number]) Allergies morphine [MORPHINE] Allergy (Mild, Verified 12/03/23 08:59) NAUSEA, VOMITING, DIZZINESS, HOT FLASHES lactose Adverse Reaction (Unknown, Verified 12/03/23 08:59) GI upset HPI Comments Details: 09/04/23 History of ILD, memory loss, DM. Back pain only started 4 months ago (prior to September). She denies inciting injuries. She does not think she was doing anything to provoke. She says this is new, affecting her left abdomen going around the back. Then she has a separate left sided back that goes to leg pain. When we confirmed history further, these abdominal and back pain came together. When she lays down, it is hard for her to get up again. 1 Reports numbness, she has history of DM neuropathy. Denies weakness. On chronic percocet for back pain - she says that she has chronic left sided back pain which is now worse. Apparently, based on records review, she had a thoracic xray which reported possible DISH. RF and ARPIT were negative. Saw that she actually saw Rheumatology Griselda Marcelo in July. She has follow up next week. She has not seen GI since May 2023. She still says pain on left abdominal area. Last seen in September, complaining of pain wrapping around abdomen/thoracic and radiating to left leg. Says today that still going to left leg/foot but not wrapping around abdoment as much anymore. She has gone to PT since September. MRI done, here to discuss. 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 Renal cyst Left flank pain Thoracic spine pain Abnormal chest x-ray Lower abdominal pain JAREK (obstructive sleep apnea) Colon cancer screening Hepatic steatosis JAREK (obstructive sleep apnea) Bibasilar crackles Dyspnea Chronic restrictive lung disease ILD (interstitial lung disease) Memory loss COPD (chronic obstructive pulmonary disease) OAB (overactive bladder) History of postoperative nausea and vomiting Diabetes Insomnia Pulmonary arterial hypertension Surgical History History of cholecystectomy H/O esophagogastroduodenoscopy History of hernia repair History of colonoscopy Family History Father Hx of diabetes insipidus Mother Hx of diabetes insipidus Social History Household Members: Family Alcohol intake: never Patient Tobacco Use Status: Never used Tobacco Years Smoked: 1yr Second Hand Smoke Exposure: No Current occupational status: retired Physical Exam Constitutional: Patient appears to be in no acute distress, well nourished and well developed. Patient was appropriately conversant and oriented. MSK: No specific abnormalities found on inspection of the spine and all extremities. Lumbar ROM was full. Neurological: Lawson?s negative bilaterally. Babinski was down going bilaterally. Clonus was negative. Gait is non-antalgic without loss of balance. Results Reviewed Results Reviewed: MRI reviewed images - showed shallow disc bulge at L4-5, going more to left than right, without impinging nerve root. No significant spinal stenosis seen. Ordering Physician: Katie Charles Date of Service: 11/04/23 Procedure(s): MR lumbar spine con Accession Number(s): [id number] cc: Aarti Thacker; Katie Charles~ EXAMINATION: MR LUMBAR SPINE WITHOUT CONTRAST CLINICAL INFORMATION: Ankylosing hyperostosis. COMPARISON: Plain films of the lumbar spine 09/04/2023. TECHNIQUE: MRI of the lumbar spine was obtained without contrast. FINDINGS: VERTEBRAL BODIES AND PARASPINAL STRUCTURES: There is a mild grade 1 anterolisthesis of L4 on L5. There is disc desiccation at the levels of L3-L4 and L4-L5. Intervertebral disc heights are maintained. The vertebral bodies have normal height and contour, and no fractures are demonstrated. There are mild degenerative endplate signal changes anteriorly at L3-L4 and at L5-S1 towards the left. Overall, marrow signal is homogenous. The visualized retroperitoneal and pelvic structures are unremarkable. CONUS MEDULLARIS AND CAUDA EQUINA: Normal, terminating at the level of L1. The lower thoracic spinal cord appears normal. The cauda equina nerve roots and filum terminale appear normal. SPINAL LEVELS: L1-L2: There is mild bilateral facet arthropathy. There is a shallow left-sided disc protrusion without significant mass effect and there is no central stenosis. The neural foramina are patent bilaterally. L2-L3: There is mild bilateral facet arthropathy. Disc contour is normal. There is no central stenosis or foraminal narrowing. L3-L4: There is mild to moderate bilateral facet arthropathy. There is a small left-sided disc protrusion without mass effect on the thecal sac and there is no central stenosis. The neural foramina are patent bilaterally. L4-L5: There is moderate to severe bilateral facet arthropathy with ligamenta flava hypertrophy and small facet joint effusions. There is mild unroofing of the disc as a result of the anterolisthesis and is pressing the ventral thecal sac. There is no central stenosis. There is a left foraminal disc protrusion impinging on the exiting left L4 nerve root. L5-S1: There is moderate right and mild left facet arthropathy. There is a shallow posterior disc protrusion which mildly effaces the ventral thecal sac with no central stenosis. There are small inferior foraminal protrusions without exiting nerve root impingement. MR/MR lumbar spine wo con IMPRESSION: 1. At L4-L5 there is moderate to severe facet arthropathy and there is a grade 1 anterolisthesis. There is no central stenosis. There is a left foraminal disc protrusion impinging on the exiting left L4 nerve root. 2. At L5-S1 there is facet arthropathy and there is a shallow posterior disc protrusion. There is no central stenosis. There are small inferior foraminal protrusions without exiting nerve root impingement. 3. Milder spondylitic and facet arthropathic changes are demonstrated at other levels as described above. Electronically signed by: Manuel Rowe MD 11/29/2023 03:08 PM EDT RP Assessment & Plan Assessment & Plan (1) Lumbar radiculopathy: Code(s): M54.16 - Radiculopathy, lumbar region Category: Medical (2) Lumbar disc herniation: Code(s): M51.26 - Other intervertebral disc displacement, lumbar region Category: Medical (3) Lumbar facet arthropathy: Code(s): M47.816 - Spondylosis without myelopathy or radiculopathy, lumbar region Category: Medical Plan Discussed MRI (results above). Offered referral to Pain Management for epidural injection but she defers, she does not want to have any injections. Offered referral back to PT but she says it was not helping her a lot. She will instead do the home exercises and continue medication prescribed by PCP. Assessment and plan discussed with patient, and patient was agreeable. All questions were answered thoroughly. Follow up 3 months. Katie Diaz MD, SULEMA Board Certified, [place] Board of [employer] Medicine and Rehabilitation (ABPMR) Board Certified, [place] Board of Electrodiagnostic Medicine (ABEM) Coding Level of Care Code Est Pt Level 3 (53516) Diagnoses Lumbar radiculopathy M54.16 Lumbar disc herniation M51.26 Lumbar facet arthropathy M47.816
== END 2023-12-03 09:22 | disposition home or self-care (01) ==
PROVIDERS: PCP General Practice; Visit Provider Physical Medicine & Rehabilitation
DX: M54.16 Radiculopathy, lumbar region (principal); M51.26 Other intervertebral disc displacement, lumbar region; M47.816 Spondylosis without myelopathy or radiculopathy, lumbar region
CPT/HCPCS: 99213

== ENCOUNTER → 2023-12-03 08:58 | Outpatient (BNVA) | payer OTHER, SELFPAY | PROVIDERS: PCP General Practice; Visit Provider Physical Medicine & Rehabilitation | DX: M47.26 Other spondylosis with radiculopathy, lumbar region (principal); M51.26 Other intervertebral disc displacement, lumbar region; E11.40 Type 2 diabetes mellitus with diabetic neuropathy, unspecified | CPT/HCPCS: 99212 ==

== ENCOUNTER 2023-12-16 08:32 | Outpatient (AMB) | payer OTHER, SELFPAY ==
--- NOTE | 2023-12-16 08:33 | MHC.OFFVIS ---
Vital Signs 12/16/23 08:48 Height 5 ft Weight 165 lb 5.547 oz BMI 32.3 BP 140/78 H Blood Pressure Location Rt brachial Position Sitting Pulse 81 Pulse Source Pulse Oximeter Pulse Oximetry (%) 98 Oxygen Delivery Method Room Air Intake Visit Reasons: LBP Intake Note: Patient presents for LBP. My back hurts, hand and fingers. Feel lots of pain from my hip to feet. I been feeling this pain for 5 years. I take Oxycodone 5 mg. It works for short time. Director Of Casino Required: Yes Director Of Casino Language: Burial Vault Setter Services: Director Of Casino Present Director Of Casino Name: Marge [id number] Information Interpreted: non-clinical & clinical Allergies morphine [MORPHINE] Allergy (Mild, Verified 12/16/23 08:43) NAUSEA, VOMITING, DIZZINESS, HOT FLASHES lactose Adverse Reaction (Unknown, Verified 12/16/23 08:43) GI upset Medication List - Last Reconciled 12/16/23 by Vishal Lange MD albuterol sulfate 90 mcg/actuation (ProAir HFA) 2 puffs inhalation Q4-6H PRN amlodipine 10 mg PO DAILY aspirin 81 mg PO DAILY atorvastatin 40 mg PO BEDTIME blood sugar diagnostic As directed budesonide-formoterol 160-4.5 mcg/actuation (Symbicort) 2 puffs PO BID cholecalciferol (vitamin D3) (Vitamin D3) 50 mcg PO DAILY cyanocobalamin (vitamin B-12) 1,000 mcg PO DAILY furosemide (Lasix) 20 mg PO DAILY PRN 30 days gabapentin 100 mg PO BID glipizide ER 5 mg PO QAM lancets As directed lidocaine 5% (Lidoderm) 1 patch topical DAILY 30 days sdfylb-xowbnbxy-xtqlamh 24,000-76,000 -120,000 unit (Creon) TAKE 2 CAPSULES BY MOUTH TWICE DAILY WITH MEALS OR SNACKS losartan 100 mg PO DAILY melatonin 10 mg PO BEDTIME metformin ER 1,000 mg PO BID metoprolol succinate ER 100 mg PO DAILY mirabegron ER (Myrbetriq) 25 mg PO DAILY 90 days mycophenolate mofetil 1,000 mg (2 x 500 mg) PO BID 30 days nintedanib (Ofev) 100 mg PO Q12H 30 days omeprazole 20 mg PO DAILY ondansetron 4 mg PO Q8H PRN 30 days oxycodone-acetaminophen 5-325 mg 1 tab PO TID PRN simethicone 180 mg PO BID sitagliptin phosphate 50 mg PO QAM sucralfate 2 grams (2 x 1 gram) PO DAILY trazodone 100 mg (2 x 50 mg) PO BEDTIME HPI Comments Details: This is a 73-year-old female who presents for evaluation of DISH. Patient has a history of interstitial lung disease, managed by Dr. Hill, she is on CellCept and Ofev. She states that she has had this low back pain for about 5 years. The pain starts in the upper lumbar area and shoots laterally and down words to heard her buttocks. She takes oxycodone but it only provides short term relief. She denies any swollen joints. [facility] Medical History Lumbar facet arthropathy Lumbar disc herniation [id number] syndrome Renal cyst Left flank pain Thoracic spine pain Abnormal chest x-ray Lower abdominal pain JAREK (obstructive sleep apnea) Colon cancer screening Hepatic steatosis JAREK (obstructive sleep apnea) Bibasilar crackles Dyspnea Chronic restrictive lung disease ILD (interstitial lung disease) Memory loss COPD (chronic obstructive pulmonary disease) OAB (overactive bladder) History of postoperative nausea and vomiting Diabetes Insomnia Pulmonary arterial hypertension Surgical History History of cholecystectomy H/O esophagogastroduodenoscopy History of hernia repair History of colonoscopy Family History Father Hx of diabetes insipidus Mother Hx of diabetes insipidus Social History Household Members: Family Alcohol intake: never Patient Tobacco Use Status: Never used Tobacco Years Smoked: 1yr Second Hand Smoke Exposure: No Current occupational status: retired Review of Systems [facility] [place] pain, Reports arthralgias and Reports radiating pain into limb Physical Exam Vital Signs: Last Vital Signs Pulse 81 12/16/23 08:48 BP 140/78 H 12/16/23 08:48 Pulse Ox 98 12/16/23 08:48 Oxygen Delivery Method Room Air 12/16/23 08:48 BMI result Body Mass Index 32.3 Const General: cooperative, healthy appearing and comfortable Nutritional Appearance: obese Orientation/consciousness: patient oriented x3 Limitations: no limitations HEENT Head: Yes normocephalic and Yes atraumatic Mouth: moist mucous membranes Resp Effort & Inspection: normal respiratory effort and able to speak in complete sentences Auscultation: crackles on the right at the base and in the mid lung whaley and on the left in the lower lung whaley Cardio Rate: regular rate Rhythm: regular rhythm Neuro General: patient oriented x3 Extrem Other: Mild osteoarthritic changes of both hands with prominent Heberden's nodes on both little fingers No active synovitis Normal nailfold capillaroscopy Normal range of motion of hands, wrists, elbows and shoulders without pain Positive straight leg raise test bilaterally Assessment & Plan Assessment & Plan (1) DISH (diffuse idiopathic skeletal hyperostosis): Comment: of thoracic spine Code(s): M48.10 - Ankylosing hyperostosis [[place]st[place]], site unspecified Category: Medical Plan: 73-year-old female who presents evaluation of DISH. Upon evaluation I do not see any signs suggestive of an autoimmune rheumatic disease. Patient has done physical therapy without much relief. I suggested pain management evaluation. Patient is not interested. I suggested trying an pyff-xrx-uabosow Salonpas patch. Follow-up with PCP (2) ILD (interstitial lung disease): Comment: progressively worsening based on CT chest Code(s): J84.9 - Interstitial pulmonary disease, unspecified Category: Medical Plan: No signs suggestive of an underlying autoimmune rheumatic disease. Patient has negative serologies. No active synovitis on exam, normal nailfold capillaroscopy Continue to follow-up with Dr. Hill Plan I spent 30 minutes reviewing patient's chart, evaluating patient,, counseling patient and documenting in the chart Coding Level of Care Code New Pt Level 3 (59316) Diagnoses DISH (diffuse idiopathic skeletal hyperostosis) M48.10 ILD (interstitial lung disease) J84.9
[2023-12-16 08:48] VITALS: BP 140/78; PULSE 81; O2SAT 98; BMI 32.3
== END 2023-12-16 09:10 | disposition home or self-care (01) ==
PROVIDERS: PCP General Practice; Visit Provider Student in an Organized Health Care Education/Training Program
DX: M48.10 Ankylosing hyperostosis [Forestier], site unspecified (principal); J84.9 Interstitial pulmonary disease, unspecified
CPT/HCPCS: 99203

== ENCOUNTER → 2023-12-16 08:32 | Outpatient (BNVA) | payer OTHER, SELFPAY | PROVIDERS: PCP General Practice; Visit Provider Student in an Organized Health Care Education/Training Program | DX: M48.10 Ankylosing hyperostosis [Forestier], site unspecified (principal); J84.9 Interstitial pulmonary disease, unspecified | CPT/HCPCS: 99202 ==

== ENCOUNTER 2023-12-17 09:56 | Outpatient (AMB) | payer OTHER, SELFPAY ==
--- NOTE | 2023-12-17 10:09 | MHC.OFFVIS ---
Vital Signs 12/17/23 10:12 Height 5 ft Weight 167 lb 8.821 oz BMI 32.7 BP 119/63 Blood Pressure Location Lt brachial Position Sitting Pulse 63 Intake Visit Reasons: 6 month follow up Intake Note: Snehal presents in office today 6 months follow up of GERD. CC: Patient reports doing well and denies having any concerns. Street Photographer Required: Yes Street Photographer Name: edith Accompanied by: Self / Same As Patient Allergies morphine [MORPHINE] Allergy (Mild, Verified 12/16/23 08:43) NAUSEA, VOMITING, DIZZINESS, HOT FLASHES lactose Adverse Reaction (Unknown, Verified 12/16/23 08:43) GI upset HPI HPI 6 month follow up: Details: Assessment & Plan (1) Post-cholecystectomy syndrome: 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 (2) GERD (gastroesophageal reflux disease): Code(s): K21.9 - Gastro-esophageal reflux disease without esophagitis (3) Abdominal bloating: Code(s): R14.0 - Abdominal distension (gaseous) (4) DISH (diffuse idiopathic skeletal hyperostosis): Comment: of thoracic spine Code(s): M48.10 - Ankylosing hyperostosis [Forestier], site unspecified Plan [place] #Kim Live She continues with her carafate 2 tabs a day and her creon, yet she still has diarrhea at times, she feels this is r/t her metformin. She still has left sided pain that seems to start in her back and radiate to the abdomen, for which we have found not pathology so this is likely r/t her severe thoracic back problems. The pain is worse with lifting her left leg, like when she drives, so this is a big clue. She also continues on her omeprazole for her GERD. ROV 6 mos. TODAY'S VISIT [place] #Edith Live She is doing well with her stomach and her GI regimen. She continues on her Carafate and Creon and although her gas is greatly reduced she does complain of it ?slipping out? when she walks. This has been especially a problem when she walks them all. I have encouraged her to try walking a bit after each meal to try to mobilize the gas better so it will not buildup. Now she is struggling with left back and flank pain that has reilly dx'ed as spinal radicular pain. She recently had an MRI and she has a L1-L2 left disc protrusion. She declines injections, but takes oxycodone. Return office visit in 6 months [facility] Medical History Lumbar facet arthropathy Lumbar disc herniation [id number] syndrome Renal cyst Left flank pain Thoracic spine pain Abnormal chest x-ray Lower abdominal pain JAREK (obstructive sleep apnea) Colon cancer screening Hepatic steatosis JAREK (obstructive sleep apnea) Bibasilar crackles Dyspnea Chronic restrictive lung disease ILD (interstitial lung disease) Memory loss COPD (chronic obstructive pulmonary disease) OAB (overactive bladder) History of postoperative nausea and vomiting Diabetes Insomnia Pulmonary arterial hypertension Surgical History History of cholecystectomy H/O esophagogastroduodenoscopy History of hernia repair History of colonoscopy Family History Father Hx of diabetes insipidus Mother Hx of diabetes insipidus Social History Household Members: Family Alcohol intake: never Patient Tobacco Use Status: Never used Tobacco Years Smoked: 1yr Second Hand Smoke Exposure: No Current occupational status: retired Review of Systems Const Denies fatigue, Denies fever(s), Denies night sweats, Denies poor appetite and Denies weight loss Eyes Details: glasses Reports requires corrective lenses ENT Reports Normal hearing present, Denies dental pain, Denies dysphagia, Denies hearing loss, Denies mouth pain, Denies odynophagia, Denies throat swelling, Denies tongue swelling and Reports other (Dentition adequate) Card Reports no additional complaints Resp Reports no additional complaints GI Details: Denies abdominal pain, Denies melena, Reports bloating, Denies hematochezia, Denies constipation, Denies GI cramping, Denies dysphagia, Reports excessive flatus, Denies early satiety, Reports heartburn, Denies diarrhea, Reports loose stools, Denies nausea, Denies odynophagia, Denies vomiting and Denies hematemesis Skin/Breast Denies pruritus, Denies lesions, Denies rash and Denies jaundice Neuro Reports Normal hearing present and Denies Abnormal speech present Endo Denies fatigue Aller/Immun Denies throat swelling and Denies tongue swelling Physical Exam Vital Signs: Last Vital Signs Pulse 63 12/17/23 10:12 BP 119/63 12/17/23 10:12 BMI result Body Mass Index 32.7 Const General: cooperative, no acute distress, well developed and well groomed Nutritional Appearance: well nourished and obese Orientation/consciousness: oriented to person, oriented to place and oriented to time Limitations: language barrier HEENT Head: Yes normocephalic and Yes atraumatic Eyes General: appearance normal, both eyes and all related structures Pupils: Equal, round and reactive pupils present Neck Neck: Yes normal visual inspection and Yes no lymphadenopathy Thyroid: Thyroid normal Resp Effort & Inspection: normal respiratory effort and able to speak in complete sentences Auscultation: clear to auscultation bilaterally Cardio Rate: regular rate Rhythm: regular rhythm Heart sounds: Normal, physiologic split S2 sound present Peripheral pulses: radial pulses present and posterior tibial pulses present GI Inspection: No distended, No Abdominal panniculus present and Yes obesity Palpation (GI): Soft to palpation, nontender, no guarding, not rigid and No hepatosplenomegaly present Percussion: Yes normal to percussion Auscultation: normal bowel sounds Rectal Exam - Female: deferred Skin General skin exam: no rashes or lesions noted, turgor normal, skin not dry, no jaundice, No spider nevi and no striae Rashes: no rashes Nails: normal Neuro General: oriented to person, oriented to place and oriented to time Cranial nerves: Yes Equal, round and reactive pupils present and Yes Normal hearing present Speech: No Abnormal speech present Extrem General: Yes normal to inspection, No clubbing, No cyanosis and No edema Psych Appearance: grossly normal and well kempt Mental Status: mental status grossly normal Speech and movement: Normal speech and movement present Affect: normal affect Attitude: cooperative Thought process: Normal thought process present and not confabulating Thought content: Normal thought content present Insight: Fair insight present (Psych) Judgement: Fair judgement present (Psych) Assessment & Plan Assessment & Plan (1) Post-cholecystectomy syndrome: 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 Category: Medical (2) GERD (gastroesophageal reflux disease): Code(s): K21.9 - Gastro-esophageal reflux disease without esophagitis Category: Medical Plan [place] #Edith Live She is doing well with her stomach and her GI regimen. She continues on her Carafate, omeprazole and Creon and although her gas is greatly reduced she does complain of it ?slipping out? when she walks. This has been especially a problem when she walks them all. I have encouraged her to try walking a bit after each meal to try to mobilize the gas better so it will not buildup. Now she is struggling with left back and flank pain that has reilly dx'ed as spinal radicular pain. She recently had an MRI and she has a L1-L2 left disc protrusion. She declines injections, but takes oxycodone. Return office visit in 6 months Medications: Changed From ilhkxh-ihstefvt-nuepgle 24,000-76,000 -120,000 unit (Creon) TAKE 2 CAPSULES BY MOUTH TWICE DAILY WITH MEALS OR SNACKS 120 caps 6RF K58.9 - Irritable bowel syndrome without diarrhea To bcljnp-prpsqnne-rmeyfcc 24,000-76,000 -120,000 unit (Creon) 2 caps PO BID 360 caps 1RF K58.9 - Irritable bowel syndrome without diarrhea Refilled omeprazole 20 mg PO DAILY 60 caps 6RF K21.9 - Gastro-esophageal reflux disease without esophagitis sucralfate 2 grams (2 x 1 gram) PO DAILY 180 tabs 1RF K21.9 - Gastro-esophageal reflux disease without esophagitis, K91.5 - Postcholecystectomy syndrome, Z90.49 - Acquired absence of other specified parts of digestive tract simethicone 180 mg PO BID 180 caps 1RF R14.0 - Abdominal distension (gaseous) Coding Level of Care Code Est Pt Level 3 (52167) Diagnoses Post-cholecystectomy syndrome K91.5 GERD (gastroesophageal reflux disease) K21.9
[2023-12-17 10:12] VITALS: BP 119/63; PULSE 63; BMI 32.7
== END 2023-12-17 10:31 | disposition home or self-care (01) ==
PROVIDERS: PCP General Practice; Visit Provider Nurse Practitioner
DX: K91.5 Postcholecystectomy syndrome (principal); K21.9 Gastro-esophageal reflux disease without esophagitis
CPT/HCPCS: 99213

== ENCOUNTER → 2023-12-17 09:56 | Outpatient (BNVA) | payer OTHER, SELFPAY | PROVIDERS: PCP General Practice; Visit Provider Nurse Practitioner | DX: K91.5 Postcholecystectomy syndrome (principal); K21.9 Gastro-esophageal reflux disease without esophagitis | CPT/HCPCS: 99212 ==

== ENCOUNTER 2024-01-20 10:46 | Outpatient (REF) | payer OTHER, SELFPAY ==
[2024-01-20 10:17] VITALS: PULSE 82; RESP 16; O2SAT 97
--- NOTE | 2024-01-20 11:22 | PFT_ITS ---
Indication: Pulmonary fibrosis Spirometry [FEV1 to FVC 88% with an FEV1 1.34 L 71% predicted; FVC 1.51 L 63% predicted. Bronchodilators were not used. Maximum voluntary ventilation is 56% predicted] Lung Volumes [Total lung capacity 63% predicted] Diffusion Capacity [DLCO 62% predicted when corrected for hemoglobin.] Comparisons [Not available at this time] Interpretation [There is a restrictive ventilatory defect consistent with moderate restrictive lung disease consistent with a history of pulmonary fibrosis. No evidence of any obstructive ventilatory defects. Bronchodilators were not used. This is a moderate decrease in maximum voluntary ventilation secondary to likely deconditioning. The patient has a jnem-tv-nhjdjiaf diffusion impairment secondary to the interstitial lung disease. Clinical correlation warranted.] MTDD
== END 2024-01-20 10:47 | disposition home or self-care (01) ==
LOC: HO.RESP 10:46
PROVIDERS: PCP General Practice; Visit Provider Hospitalist
DX: J84.9 Interstitial pulmonary disease, unspecified (principal); J41.0 Simple chronic bronchitis
CPT/HCPCS: 94010; 94640; 94727; 94729

== ENCOUNTER → 2024-01-20 11:22 | Outpatient (BNV) | payer OTHER, SELFPAY | PROVIDERS: PCP General Practice; Visit Provider Hospitalist | DX: J84.10 Pulmonary fibrosis, unspecified (principal) | CPT/HCPCS: 94060; 94727; 94729 ==

== ENCOUNTER 2024-03-04 12:39 | Inpatient (IN) | payer OTHER, SELFPAY ==
--- NOTE | 2024-03-04 | ECG_ITS ---
Test Reason : L SIDE PAIN INTO CHEST Blood Pressure : / mmHG Vent. Rate : 076 BPM Atrial Rate : 076 BPM P-R Int : 130 ms QRS Dur : 072 ms QT Int : 374 ms P-R-T Axes : 076 056 062 degrees QTc Int : 420 ms Normal sinus rhythm Normal ECG When compared to the previous EKG of Premature ventricular complexes is no longer Present Referred By: Generic ED Physician Electronically Signed By:TERESA LEE MD
--- NOTE | ~2024-03-04 | MR_ITS ---
EXAMINATION: MR ABDOMEN WITHOUT AND WITH CONTRAST CLINICAL INFORMATION: Rule out pancreatic malignancy COMPARISON: CT abdomen and pelvis 03/04/2024 TECHNIQUE: MR abdomen was performed without and with use of 7 mL intravenous Gadavist gadolinium contrast. Postcontrast images are performed in multiphase dynamic sequences. Imaging was performed in 3 planes. FINDINGS: LUNG BASES: Trace bilateral pleural effusions. LIVER, GALLBLADDER, AND BILIARY TREE: Liver demonstrates normal size, signal intensity and surface contour. No hepatic steatosis. No focal hepatic lesion. The gallbladder is surgically absent. Mild prominence of the central intrahepatic bile ducts. The common bile duct is dilated measuring 1.1 cm in diameter, similar to prior ultrasound. No filling defects in the course of CBD to suggest choledocholithiasis. Trace perihepatic fluid. PANCREAS: Mild interstitial edema of the distal body of the pancreas, 8:24 with mild surrounding fat stranding better evaluated on recent CT. No suspicious pancreatic mass. No ductal dilation. SPLEEN: Normal in size. No enhancing focal lesion. ADRENAL GLANDS: Unremarkable. KIDNEYS AND URETERS: Symmetric nephrograms. No hydronephrosis. Simple cyst in the lateral midpole of the right kidney, for which no dedicated follow-up imaging is required. GASTROINTESTINAL TRACT: Included bowel loops are nondilated. ABDOMINAL WALL: No significant hernia is appreciated. LYMPH NODES: No enlarged abdominal lymph nodes. VASCULAR: The abdominal aorta is normal in caliber. OSSEOUS STRUCTURES: No acute or suspicious osseous abnormality. Degenerative changes of the thoracic spine. MR/MR abdomen wo/w con IMPRESSION: 1. Mild edema involving the distal body of the pancreas with surrounding fat stranding again concerning for acute pancreatitis in the appropriate clinical context. No suspicious pancreatic mass. No pancreatic ductal dilation. If there is persistent clinical concern for an underlying mass, follow-up imaging can be considered after resolution of acute episode of pancreatitis. 2. Status post cholecystectomy. Stable chronic dilatation of the common bile duct. No findings to suggest choledocholithiasis. 3. Trace bilateral pleural effusions. Electronically signed by: Wolfgang Mahajan MD 03/09/2024 01:36 PM [facility] [place], [place]
--- NOTE | ~2024-03-04 | XR_ITS ---
EXAMINATION: XR CHEST CLINICAL INFORMATION: pain COMPARISON: None available. TECHNIQUE: 2 views of the chest were obtained. FINDINGS: The cardiac, hilar, and mediastinal contours are normal. Elevated right hemidiaphragm again noted. Low lung volumes, diffusely prominent finding interstitial markings suggesting underlying interstitial lung disease. There is no pneumothorax or pleural effusion. There is no focal osseous or soft tissue abnormality. XR/XR chest 2V IMPRESSION: 1. Low lung volumes with diffuse prominence of the interstitial markings, consistent with interstitial lung disease. Unchanged appearance. 2. Elevated right hemidiaphragm, unchanged. 3. No active superimposed disease. Electronically signed by: Olegario Best MD 03/04/2024 03:21 PM EST
--- NOTE | ~2024-03-04 | CT_ITS ---
EXAMINATION: CT ABDOMEN AND PELVIS WITHOUT CONTRAST CLINICAL INFORMATION: Left-sided abdominal pain. COMPARISON: Abdominal ultrasound from 08/01/2023. CT abdomen and pelvis from 09/25/2021. TECHNIQUE: Multidetector volumetric imaging was performed from the lung bases to the pubic without contrast. Sagittal and coronal reformatted images were obtained on the technologist workstation. This CT examination was performed using dose optimization techniques as appropriate, variously including the following: *Automated exposure control. *Adjustment of mA and/or kV according to patient size (this includes techniques or standardized protocols for targeted exams where dose is matched to indication/reason for exam; i.e. extremities or head). *Use of iterative reconstruction technique. DLP: 585 mGy-cm FINDINGS: LUNG BASES: Mildly increased subpleural reticulation in the visualized lung bases. Otherwise, no abnormalities of the visualized lung bases. Moderate coronary artery calcifications. No demonstrated abnormalities of the visualized cardiac structures. ABDOMEN/PELVIS: Liver, Biliary Ducts, and Gallbladder: The unenhanced liver is normal in size and attenuation without focal hepatic lesions or biliary ductal dilatation. The gallbladder is physiologically distended without radiopaque gallstones, pericholecystic fluid, or significant gallbladder wall thickening. Pancreas: Moderate fatty atrophy of the pancreatic head. Moderate fat stranding surrounding the pancreatic body and tail. No overtly demonstrated discrete collection or soft tissue mass. Adrenal Glands: The adrenal glands are normal in appearance. Spleen: The spleen is normal in appearance. Kidneys and Ureters: The unenhanced kidneys are normal in size without evidence of nephrolithiasis or hydronephrosis. No ureterolithiasis or hydroureter. Urinary Bladder: The urinary bladder is partially distended without focal wall thickening. No bladder calculi are demonstrated. Gastrointestinal System: The stomach is decompressed and therefore not well evaluated on this exam. The small bowel is of normal caliber. Moderate sigmoid diverticulosis without evidence of diverticulitis. Otherwise, the colon is normal in appearance without focal wall thickening or pericolonic inflammatory change. Normal appendix. Genitourinary: No demonstrated adnexal soft tissue masses. Intra-abdominal and Retroperitoneal Spaces: Prior lower anterior abdominal wall surgery. No intra-abdominal free fluid collections or gas. No mesenteric, retroperitoneal, or inguinal lymphadenopathy. VASCULATURE: The abdominal aorta is of normal contour and caliber with moderate calcific atherosclerotic disease. MUSCULOSKELETAL: Mild to moderate multilevel degenerative changes of the spine. No lytic or sclerotic osseous lesions demonstrated. No soft tissue masses demonstrated. CT/CT abdomen pelvis wo IV con IMPRESSION: 1. Moderate fat stranding surrounding the pancreatic body and tail potentially indicating acute interstitial edematous pancreatitis. No demonstrated peripancreatic fluid collection. Recommend correlation with pancreatic serum markers. 2. Diverticulosis without evidence of diverticulitis. Electronically signed by: Liam Mi DO 03/05/2024 02:20 AM [facility]
[2024-03-04 13:18] VITALS: BP 168/74; PULSE 88; RESP 18; TEMP 36.5; O2SAT 95; BMI 31.4
--- NOTE | 2024-03-04 13:23 | ED_ITS ---
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 Patient reports her pain started last night. She reports that she has had this pain many times in the past. She states that she had 2 small bowel movements this morning that were nonbloody and did not have any diarrhea. She reports a history of cholecystectomy, section Denies any fevers, chills. Her pain is an 8/10. She reports her pain radiates up into her chest. Denies any cough or shortness a breath Related Data Home Medications ?Medication ?Instructions ?Recorded ?Confirmed amlodipine 10 mg tablet 10 mg PO DAILY 01/17/20 12/16/23 aspirin 81 mg tablet,delayed 81 mg PO DAILY 01/17/20 12/16/23 release atorvastatin 40 mg tablet 40 mg PO BEDTIME 01/17/20 12/16/23 cyanocobalamin (vitamin B-12) 1,000 mcg PO DAILY 01/17/20 12/16/23 1,000 mcg tablet losartan 100 mg tablet 100 mg PO DAILY 01/17/20 12/16/23 melatonin 5 mg tablet 10 mg PO BEDTIME 01/17/20 12/16/23 sitagliptin phosphate 50 mg tablet 50 mg PO QAM 01/17/20 12/16/23 blood sugar diagnostic #10 ea 07/24/20 12/16/23 lancets 33 gauge #100 ea 07/24/20 12/16/23 metformin 500 mg tablet,extended 1,000 mg PO BID 07/24/20 12/16/23 release 24 hr glipizide 5 mg tablet, extended 5 mg PO QAM 10/08/22 12/16/23 release 24 hr metoprolol succinate 100 mg 100 mg PO DAILY 10/08/22 12/16/23 tablet,extended release 24 hr cholecalciferol (vitamin D3) 50 50 mcg PO DAILY 12/05/22 12/16/23 mcg (2,000 unit) capsule (Vitamin D3) gabapentin 100 mg capsule 100 mg PO BID 04/10/23 12/16/23 oxycodone-acetaminophen 5 mg-325 1 tab PO TID PRN 12/03/23 12/16/23 mg tablet Previous Rx's ?Medication ?Instructions ?Recorded furosemide 20 mg tablet (Lasix) 20 mg PO DAILY PRN edema 30 days 10/29/22 #14 tabs albuterol sulfate 90 mcg/actuation 2 puff inhalation Q4-6H PRN 12/20/22 aerosol inhaler (ProAir HFA) shortness of breath or wheezing #8.5 grams mirabegron 25 mg tablet,extended 25 mg PO DAILY 90 days #90 tabs 07/16/23 release 24 hr (Myrbetriq) lidocaine 5 % topical patch 1 patch topical DAILY 30 days #30 07/21/23 (Lidoderm) ea budesonide-formoterol HFA 160 2 puff PO BID #10.2 grams 10/02/23 mcg-4.5 mcg/actuation aerosol inhaler (Symbicort) mycophenolate mofetil 500 mg tablet 1,000 mg (2 x 500 mg) PO BID 30 10/14/23 days #120 tabs ondansetron 4 mg disintegrating 4 mg PO Q8H PRN nausea and 10/14/23 tablet vomiting 30 days #20 tabs nintedanib 100 mg capsule (Ofev) 100 mg PO Q12H 30 days #60 caps 10/15/23 bpbqnr-[id number] 2 cap PO BID #360 caps 12/17/23 24,000-76,000-120,000 unit capsule,delayed rel (Creon) omeprazole 20 mg capsule,delayed 20 mg PO DAILY #60 caps 12/17/23 release simethicone 180 mg capsule 180 mg PO BID #180 caps 12/17/23 trazodone 50 mg tablet 100 mg (2 x 50 mg) PO BEDTIME #60 12/29/23 tabs sucralfate 1 gram tablet 1 g PO DAILY #90 tabs 12/31/23 Allergies Allergy/AdvReac Type Severity Reaction Status Date / Time morphine [MORPHINE] Allergy Mild NAUSEA, Verified 03/04/24 13:22 VOMITING, DIZZINESS, HOT FLASHES lactose AdvReac Unknown GI upset Verified 03/04/24 13:22 Review of Systems Constitutional: Denies body ache(s), Denies chills and Denies headache(s) Eyes: Denies blurry vision Denies vertigo, Denies dizziness and Denies headache(s) Cardiovascular: Reports chest pain Respiratory: Denies cough Gastrointestinal: Reports abdominal pain, Denies nausea and Denies vomiting Genitourinary: Denies hematuria and Denies dysuria Musculoskeletal: Reports back pain Skin/Breast: Denies rash Denies vertigo, Denies dizziness and Denies headache(s) Psychiatric: Denies anxiety PMFSH Past Medical History Medical History Lumbar facet arthropathy Lumbar disc herniation 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 Renal cyst Left flank pain Thoracic spine pain Abnormal chest x-ray Lower abdominal pain JAREK (obstructive sleep apnea) Colon cancer screening Hepatic steatosis JAREK (obstructive sleep apnea) Bibasilar crackles Dyspnea Chronic restrictive lung disease ILD (interstitial lung disease) Memory loss COPD (chronic obstructive pulmonary disease) OAB (overactive bladder) History of postoperative nausea and vomiting Diabetes Insomnia Pulmonary arterial hypertension Surgical History History of cholecystectomy H/O esophagogastroduodenoscopy History of hernia repair History of colonoscopy Family History Family History Father Hx of diabetes insipidus Mother Hx of diabetes insipidus Social History Social History Household Members: Family Alcohol intake: never Patient Tobacco Use Status: Never used Tobacco Years Smoked: 1yr Second Hand Smoke Exposure: No Advance Directives: No Advance Directives Information Provided: Yes Do you have a plan to hurt others: No Plan Current occupational status: retired Physical Exam ED Vital Signs: Vital Signs - 24 hr 03/04/24 13:18 03/04/24 16:00 03/04/24 19:11 Temperature 97.7 F 98.2 F 98.6 F Pulse Rate 88 74 74 Respiratory Rate 18 16 16 Blood Pressure 168/74 H 168/68 H 158/64 H Pulse Oximetry 95 94 95 Oxygen Delivery Method Room Air Room Air Room Air BMI result Body Mass Index 31.4 Const General: healthy appearing, comfortable, no acute distress, alert and awake Nutritional Appearance: well nourished Orientation/consciousness: patient oriented x3 HENMT Head: Yes normocephalic and Yes atraumatic Eyes Eyelids: Yes eyelids normal Conjunctivae: conjunctivae normal Sclerae: sclerae normal Corneas: corneas normal Pupils: Equal, round and reactive pupils present EOM: EOMs intact bilaterally Neck Neck: Yes full ROM Resp Effort & Inspection: normal respiratory effort, able to speak in complete sentences and not labored Cardio Rate: regular rate Rhythm: regular rhythm GI Inspection: No distended Palpation (GI): Soft to palpation, not firm, Tenderness to palpation present (GI) in the LLQ and in the LUQ; not in the RLQ, not in the RUQ and not at McBurney's point, no guarding and not rigid Back/Spine/Pelvis Other: Tenderness to the left lumbar paraspinous muscles Thoracic/Lumbar Spine: thoracic and lumbar spine normal to inspection Skin General skin exam: elasticity normal Neuro General: patient oriented x3 Cranial nerves: Yes Equal, round and reactive pupils present and Yes Bilaterally intact EOM present Cognition (Neuro): normal cognition Extrem Other: Moving all extremities well without any obvious deformities Course Course Course Narrative: This is a rapid medical exam performed by Enedina Davis PA-C. The patient is a 73-year-old female with a history of COPD, pulmonary hypertension, obesity, GERD, status post cholecystectomy, arthritis, presents with left upper quadrant pain since yesterday. Pain over left upper quadrant radiates to the chest. Associated nausea vomiting. On exam, patient has palpable pain across entire upper abdomen, left greater than right, no objective guarding. We will screen basic labs, lipase LFTs, EKG obtained, adding a troponin to rule out atypical presentation for ACS, and a chest x-ray. The patient is hemodynamically stable and can return to the waiting room pending her full assessment. Reevaluation(s) Reevaluation #1: Patient signed out to overnight staff pending CT imaging Time: 21:21 Medical Decision Making Medical Decision Making MDM Narrative: 73-year-old female presents for evaluation of left-sided abdominal pain. She reports that her pain radiates to her chest. She reports similar pains in the past. She had 2 bowel movements earlier this morning, I have a lower suspicion for obstruction. She reports the pain radiates into her chest in his worse with inspiration. A cardiac workup was ordered including labs, EKG, chest x-ray. Differential Diagnosis Differential Diagnoses: The differential diagnosis associated with the presentation includes Acute abdominal pain Left flank pain Obstructive uropathy Constipation ACS less likely Pneumonia Colitis Diverticulitis Lab Data MDM Lab Attestation statement: I reviewed the patient's lab results. Mild leukocytosis to 11.2 with a left shift. Very mild anemia with a hematocrit it was just below normal at 36.8 and a hemoglobin 12.8. The patient's chemistries have no significant abnormalities. AST is just above normal but remainder of LFTs within normal limits 03/04/24 13:50 03/04/24 13:50 Labs: Lab Results 03/04/24 03/04/24 Range/Units 13:50 14:46 WBC 11.2 H (4.8-10.8) X10*3/uL RBC 3.88 L (4.20-5.50) X10*6/uL Hgb 12.8 (12.0-16.0) g/dl Hct 36.8 L (37.0-47.0) % MCV 94.8 (80.0-98.0) fL MCH 33.0 (27.0-33.0) pg MCHC 34.8 (31.0-35.0) g/dl RDW 12.3 (11.0-16.0) % Plt Count 206 (160-400) X10*3/uL MPV 11.4 (9.4-12.3) fL Immature Gran % (Auto) 0.4 (0.0-0.4) % Neut % (Auto) 73.6 H (45-73) % Lymph % (Auto) 19.1 L (20-40) % [place] % (Auto) 6.1 (2-11) % Eos % (Auto) 0.4 (0-4) % Baso % (Auto) 0.4 (0-2) % Lymph # (Auto) 2.1 (1.2-4.9) X10*3/uL [place] # (Auto) 0.7 (0.1-1.2) X10*3/uL Eos # (Auto) 0.1 (0.0-0.4) X10*3/uL Baso # (Auto) 0.0 (0.0-0.2) X10*3/uL Abs Immat Gran (auto) 0.05 H (0.00-0.03) X10*3/uL Absolute Neuts (auto) 8.2 (2.0-8.3) x10*3/uL Absolute Nucleated RBC 0.000 (0.0-0.012) X10*3/uL Nucleated RBC % (auto) 0.0 (0.0-0.2) /100WBC Hold Blue Top SEE NOTE Sodium 140 (135-145) mmol/L Potassium 4.1 (3.3-5.1) mmol/L Chloride 108 (96-108) mmol/L Carbon Dioxide 26 (22-29) mmol/L Anion Gap 10 L (12-20) BUN 9 (9-16) mg/dL Creatinine 0.61 (0.5-1.4) mg/dL Estim Creat Clear Calc 75.4 Estimated GFR > 60 Random Glucose 132 H (60-115) mg/dL Calcium 9.3 D (8.4-10.2) mg/dL Magnesium 1.6 (1.6-2.6) mg/dL Total Bilirubin 0.5 (0.0-1.0) mg/dL AST 39 H (5-31) U/L ALT 13 (0-31) U/L Alkaline Phosphatase 73 (39-117) U/L Troponin I High Sens < 2.7 (<3.5-17.0) ng/L Total Protein 7.8 (6.5-8.0) g/dL Albumin 3.9 (3.5-5.0) g/dL Lipase 14 (8-78) U/L Urine Color Yellow Urine Appearance Cloudy Urine pH 7.0 (5.0-9.0) Ur Specific [place] 1.020 (1.005-1.025) Urine Protein Negative (Neg-Trace) mg/dL Urine Glucose (UA) Negative (Negative) mg/dL Urine Ketones 15 (Negative) mg/dL Urine Blood Negative (Negative) Urine Nitrite Negative (Negative) Ur Leukocyte Esterase Negative (Negative) Independent Interpretation I performed an independent interpretation of an: EKG (Normal sinus rhythm with a rate of [address] segment elevations or depressions) Medications Administered Discontinued Medications Generic Name Dose Route Start Last Admin Trade Name Freq PRN Reason Stop Dose Admin Fentanyl 50 mcg 03/04/24 19:53 03/04/24 20:00 Fentanyl Citrate/Pf 100 Mcg/2 Ml Vial IVPUSH 03/04/24 19:54 50 mcg ONCE ONE Administration Protocol Ketorolac Tromethamine 30 mg 03/04/24 13:55 03/04/24 14:15 Ketorolac Tromethamine 30 Mg/Ml Vial IVPUSH 03/04/24 13:56 30 mg ONCE ONE Administration Ondansetron HCl 4 mg 03/04/24 13:54 03/04/24 14:15 Ondansetron Hcl 4 Mg/2 Ml Vial IVPUSH 03/04/24 13:55 4 mg ONCE ONE Administration Discharge Plan Discharge Clinical Impression: Abdominal pain Patient Disposition: Still a Patient Prescriptions: No Action budesonide-formoterol [Symbicort] 160-4.5 mcg/actuation HFA aerosol inhaler 2 puff PO BID Qty: 10.2 11RF mycophenolate mofetil 500 mg tablet 1,000 mg PO BID 30 Days Qty: 120 6RF ondansetron 4 mg tablet,disintegrating 4 mg PO Q8H PRN (Reason: nausea and vomiting) 30 Days Qty: 20 0RF Ofev 100 mg capsule 100 mg PO Q12H 30 Days Qty: 60 6RF trazodone 50 mg tablet 100 mg PO BEDTIME Qty: 60 11RF sucralfate 1 gram tablet 1 g PO DAILY Qty: 90 2RF losartan 100 mg tablet 100 mg PO DAILY sitagliptin phosphate 50 mg tablet 50 mg PO QAM cyanocobalamin (vitamin B-12) 1,000 mcg tablet 1,000 mcg PO DAILY atorvastatin 40 mg tablet 40 mg PO BEDTIME aspirin 81 mg tablet,delayed release (DR/EC) 81 mg PO DAILY amlodipine 10 mg tablet 10 mg PO DAILY melatonin 5 mg tablet 10 mg PO BEDTIME metformin 500 mg tablet extended release 24 hr 1,000 mg PO BID (DME) blood sugar diagnostic Strip See Rx Instructions Not Applicable BID Qty: 10 Rx Instructions: As directed (DME) lancets 33 gauge misc See Rx Instructions .ROUTE .MEDSUPPLY Qty: 100 Rx Instructions: As directed metoprolol succinate 100 mg tablet extended release 24 hr 100 mg PO DAILY glipizide 5 mg tablet extended release 24hr 5 mg PO QAM gabapentin 100 mg capsule 100 mg PO BID furosemide [Lasix] 20 mg tablet 20 mg PO DAILY PRN (Reason: edema) 30 Days Qty: 14 0RF Myrbetriq 25 mg tablet extended release 24 hr 25 mg PO DAILY 90 Days Qty: 90 4RF lidocaine [Lidoderm] 5 % adhesive patch,medicated 1 patch topical DAILY 30 Days Qty: 30 4RF Rx Instructions: leave on most painful area for up to 12 hrs omeprazole 20 mg capsule,delayed release(DR/EC) 20 mg PO DAILY Qty: 60 6RF simethicone 180 mg capsule 180 mg PO BID Qty: 180 1RF Creon 24,000-76,000 -120,000 unit capsule,delayed release(DR/EC) 2 cap PO BID Qty: 360 1RF albuterol sulfate [ProAir HFA] 90 mcg/actuation HFA aerosol inhaler 2 puff inhalation Q4-6H PRN (Reason: shortness of breath or wheezing) Qty: 8.5 6RF cholecalciferol (vitamin D3) [Vitamin D3] 50 mcg (2,000 unit) capsule 50 mcg PO DAILY oxycodone-acetaminophen 5-325 mg tablet 1 tab PO TID PRN Print Language: Indonesian
[2024-03-04 14:02] LABS: MANUAL DIFF FLAG NO
[2024-03-04 14:09] LABS: Basophils Percent Auto 0.4 % (0-2); Eosinophils Absolute Auto 0.1 X10*3/uL (0.0-0.4); Eosinophils Percent Auto 0.4 % (0-4); Hematocrit 36.8 % (37.0-47.0); Hemoglobin 12.8 g/dl (12.0-16.0); Imm Gran Abs Auto 0.05 X10*3/uL (0.00-0.03); Imm Gran Pct Auto 0.4 % (0.0-0.4); Lymphocytes Absolute Auto 2.1 X10*3/uL (1.2-4.9); Lymphocytes Percent Auto 19.1 % (20-40); Mean Corpuscular HGB Conc 34.8 g/dl (31.0-35.0); Mean Corpuscular Volume 94.8 fL (80.0-98.0); Mean Platelet Volume 11.4 fL (9.4-12.3); Monocytes Absolute Auto 0.7 X10*3/uL (0.1-1.2); Monocytes Percent Auto 6.1 % (2-11); Neutrophils Absolute Auto 8.2 x10*3/uL (2.0-8.3); Neutrophils Percent Auto 73.6 % (45-73); Platelet Count 206 X10*3/uL (160-400); Red Blood Count 3.88 X10*6/uL (4.20-5.50); Red Cell Distribution Width 12.3 % (11.0-16.0); White Blood Count 11.2 X10*3/uL (4.8-10.8)
[2024-03-04] MEDS: ondansetron HCL 4 MG/2 ML VIAL IVPUSH (14:15)
[2024-03-04] MEDS: Ketorolac Tromethamine 30 MG/ML VIAL IVPUSH (14:15)
[2024-03-04 14:20] LABS: Anion Gap 10 (12-20); Aspartate Amino Transferase 39 U/L (5-31); Bilirubin Total 0.5 mg/dL (0.0-1.0); Blood Urea Nitrogen 9 mg/dL (9-16); Calcium 9.3 mg/dL (8.4-10.2); Carbon Dioxide 26 mmol/L (22-29); Chloride 108 mmol/L (96-108); Creatinine Clr Calc Pharmacy 75.4; Estimated Glomerular Filt Rate > 60; Glucose Random 132 mg/dL (60-115); Magnesium 1.6 mg/dL (1.6-2.6); Potassium 4.1 mmol/L (3.3-5.1); Sodium 140 mmol/L (135-145)
[2024-03-04 14:21] LABS: Alanine Aminotransferase 13 U/L (0-31); Albumin Level 3.9 g/dL (3.5-5.0); Alkaline Phosphatase 73 U/L (39-117); Lipase 14 U/L (8-78); Total Protein 7.8 g/dL (6.5-8.0)
[2024-03-04 14:26] LABS: Troponin-I High Sensitivity < 2.7 ng/L (<3.5-17.0)
[2024-03-04 14:57] LABS: Appearance Urine Cloudy; Color Urine Yellow; Glucose Urine UA Negative (Negative); Leukocyte Esterase Urine Negative (Negative); Nitrite Urine Negative (Negative); Urine Blood Negative (Negative); Urine Ketones 15 mg/dL (Negative); Urine Protein Negative (Neg-Trace)
[2024-03-04 16:00] VITALS: BP 168/68; PULSE 74; RESP 16; TEMP 36.8; O2SAT 94
--- NOTE | 2024-03-04 17:51 | PC.NURSE ---
This rn took over care for pt at 1500. pt has been caox and in no dsitress. pt has ambulated t restroom during this time with a brisk steady gait and n difficulty. she has denies discomfort and has remained in nsr on monitor. pt was reevaluated by pac orgady and a abd ct has been ordered and completed. results are pending and pt has been updated as to plan of care. pt continues to deny discomfort.
[2024-03-04 19:11] VITALS: BP 158/64; PULSE 74; RESP 16; TEMP 37; O2SAT 95
[2024-03-04] MEDS: fentaNYL citrate/PF 100 MCG/2 ML VIAL 50 MCG IVPUSH (20:00)
[2024-03-04 22:24] VITALS: BP 123/51; PULSE 72; RESP 16; TEMP 37.1; O2SAT 96
--- NOTE | 2024-03-04 23:12 | MHC.EDTECH ---
this tech assumed care @ 2300, at this time the pt was witnessed sleeping in their stretcher w/ equal chest rise and unlabored respirations present, pt appeared to be in no apparent distress and no needs made present at this time
[2024-03-05] VITALS (9 sets, daily range): BP systolic 121–163; BP diastolic 60–75; PULSE 64–90; RESP 12–20; TEMP 36.1–37.1; O2SAT 93–98
--- NOTE | 2024-03-05 00:45 | MHC.EDTECH ---
this tech took over care @1203
[2024-03-05] MEDS: fentaNYL citrate/PF 100 MCG/2 ML VIAL 25 MCG IVPUSH (03:06)
--- NOTE | 2024-03-05 03:10 | PC.NURSE ---
pt medicated for 8/10 abd pain. hospitalist at bedside at this time.
--- NOTE | 2024-03-05 03:21 | P.HPHOSP_ITS ---
History of Present Illness Date of Service: 03/05/24 Attending physician on admission: Brianna Mckay Chief Complaint: Abdominal pain Snehal Bob is a 73 years old woman with past medical history significant for GERD, IBS, type 2 diabetes mellitus, COPD essential hypertension and hyperlipidemia presents to the emergency department complaining of left lower quadrant pain that started Friday night associated with nausea. She described the pain as a colicky and radiates to the left mid back. Intensity is 10/10. Associated symptoms she reported nausea. Denied vomiting, constipation, diarrhea, fevers or chills. Last bowel movement was yesterday and was normal. Her last meal before symptoms was a piece of pizza. She denied any acute cardiopulmonary or genitourinary symptoms. She mentioned that she has had had this pain before but the cause has not been identified. She denied alcohol abuse. Surgical history significant for cholecystectomy and TAHBSO. It looked like she takes Creon for IBS In the ED, she was found to have stable vital signs. Blood workup showed mild leukocytosis of 11.2. Hemoglobin and platelets are normal. There are no electrolyte imbalances. Renal function is normal. LFTs are unremarkable except for slight elevation of AST. Lipase is normal, 14. Troponin is less than 2.7. Urinalysis showed no evidence of UTI. Abdomen and pelvis CT scan showed finding consistent with acute interstitial edematous pancreatitis. ED tx: Toradol 30 mg IV, fentanyl 50 mcg, Zofran 4 mg IV Review of Systems 2 Review of Systems: All 12 systems were reviewed and normal except as noted in HPI. 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 Renal cyst Left flank pain Thoracic spine pain Abnormal chest x-ray Lower abdominal pain JAREK (obstructive sleep apnea) Colon cancer screening Hepatic steatosis JAREK (obstructive sleep apnea) Bibasilar crackles Dyspnea Chronic restrictive lung disease ILD (interstitial lung disease) Memory loss COPD (chronic obstructive pulmonary disease) OAB (overactive bladder) History of postoperative nausea and vomiting Diabetes Insomnia Pulmonary arterial hypertension Family History Father Hx of diabetes insipidus Mother Hx of diabetes insipidus Surgical History History of cholecystectomy H/O esophagogastroduodenoscopy History of hernia repair History of colonoscopy Social History Household Members: Family Alcohol intake: never Patient Tobacco Use Status: Never used Tobacco Years Smoked: 1yr Second Hand Smoke Exposure: No Advance Directives: No Advance Directives Information Provided: Yes Do you have a plan to hurt others: No Plan Current occupational status: retired Meds Allergies Allergy/AdvReac Type Severity Reaction Status Date / Time morphine [MORPHINE] Allergy Mild NAUSEA, Verified 03/04/24 13:22 VOMITING, DIZZINESS, HOT FLASHES lactose AdvReac Unknown GI upset Verified 03/04/24 13:22 Home Medications ?Medication ?Instructions ?Recorded ?Confirmed ?Last Taken ?Type amlodipine 10 mg tablet 10 mg PO DAILY 01/17/20 12/16/23 10/30/20 History aspirin 81 mg tablet,delayed 81 mg PO DAILY 01/17/20 12/16/23 Unknown History release atorvastatin 40 mg tablet 40 mg PO BEDTIME 01/17/20 12/16/23 Unknown History cyanocobalamin (vitamin B-12) 1,000 mcg PO DAILY 01/17/20 12/16/23 Unknown History 1,000 mcg tablet losartan 100 mg tablet 100 mg PO DAILY 01/17/20 12/16/23 Unknown History melatonin 5 mg tablet 10 mg PO BEDTIME 01/17/20 12/16/23 Unknown History sitagliptin phosphate 50 mg tablet 50 mg PO QAM 01/17/20 12/16/23 Unknown History blood sugar diagnostic #10 ea 07/24/20 12/16/23 Unknown History lancets 33 gauge #100 ea 07/24/20 12/16/23 Unknown History metformin 500 mg tablet,extended 1,000 mg PO BID 07/24/20 12/16/23 Unknown History release 24 hr glipizide 5 mg tablet, extended 5 mg PO QAM 10/08/22 12/16/23 Unknown History release 24 hr metoprolol succinate 100 mg 100 mg PO DAILY 10/08/22 12/16/23 Unknown History tablet,extended release 24 hr cholecalciferol (vitamin D3) 50 50 mcg PO DAILY 12/05/22 12/16/23 Unknown History mcg (2,000 unit) capsule (Vitamin D3) gabapentin 100 mg capsule 100 mg PO BID 04/10/23 12/16/23 Unknown History oxycodone-acetaminophen 5 mg-325 1 tab PO TID PRN 12/03/23 12/16/23 Unknown History mg tablet Physical Exam 2 Vital Signs and Narrative: Vital Signs: Last Vital Signs Temp 98.5 F 03/05/24 02:47 Pulse 67 03/05/24 02:47 Resp 16 03/05/24 03:06 BP 133/62 03/05/24 02:47 Pulse Ox 95 03/05/24 02:47 O2 Del Method Room Air 03/05/24 02:47 BMI result Body Mass Index 31.4 Constitutional - Awake and Alert, looks uncomfortable due to pain. Cooperative. Pleasant. HEENT - PER, EOMI. Normal sclerae. Dry oral mucosa. Heart - S1S2, RRR, No edema Lungs - Normal lung expansion, Normal respiratory effort, No respiratory distress, CTA bilaterally Abdomen - Nondistended, LUQ tenderness to palpation without rebound or guarding. Increased bowel sounds. Infraumbilical midline surgical scar noted. - No CVA tenderness Extremities - no calf tenderness bilaterally, no swelling Musculoskeletal - Normal inspection, normal ROM Skin - Warm/Dry Neurological - Alert & oriented x3. No focal weakness grossly noted. Normal speech. Psychological - Appropriate affect Results Labs 03/04/24 13:50 03/04/24 13:50 Labs: Laboratory Results - last 24 hr 03/04/24 03/04/24 13:50 14:46 MCV 94.8 MCH 33.0 MCHC 34.8 RDW 12.3 Plt Count 206 MPV 11.4 Immature Gran % (Auto) 0.4 Neut % (Auto) 73.6 H Lymph % (Auto) 19.1 L [place] % (Auto) 6.1 Eos % (Auto) 0.4 Baso % (Auto) 0.4 Lymph # (Auto) 2.1 [place] # (Auto) 0.7 Eos # (Auto) 0.1 Baso # (Auto) 0.0 Abs Immat Gran (auto) 0.05 H Absolute Neuts (auto) 8.2 Absolute Nucleated RBC 0.000 Nucleated RBC % (auto) 0.0 Hold Blue Top SEE NOTE Anion Gap 10 L Estim Creat Clear Calc 75.4 Estimated GFR > 60 Random Glucose 132 H Calcium 9.3 D Magnesium 1.6 Total Bilirubin 0.5 AST 39 H ALT 13 Alkaline Phosphatase 73 Troponin I High Sens < 2.7 Total Protein 7.8 Albumin 3.9 Lipase 14 Urine Color Yellow Urine Appearance Cloudy Urine pH 7.[address] [place] 1.020 Urine Protein Negative Urine Glucose (UA) Negative Urine Ketones 15 Urine Blood Negative Urine Nitrite Negative Ur Leukocyte Esterase Negative Assessment and Plan (1) Acute pancreatitis: Qualifiers: Pancreatitis type: unspecified pancreatitis type Acute pancreatitis complication: no infection or necrosis Qualified Code(s): K85.90 - Acute pancreatitis without necrosis or infection, unspecified Status: Acute (2) Abdominal pain: Qualifiers: Abdominal location: left upper quadrant Qualified Code(s): R10.12 - Left upper quadrant pain Status: Acute Plan Snehal Bob is a 73 y/o woman admitted with: * Acute pancreatitis without necrosis, pt has 2 of 3 criteria: Abdominal pain consistent with disease and findings on abdominal imaging. Lipase is normal. Admit to hospitalist service. NPO. IV fluids. Pain control with Dilaudid IV. Check CRP and amylase. * Type 2 diabetes mellitus. Hold oral hypoglycemic agents due to NPO status. BG checks every 6 hours while NPO. Insulin sliding scale. * Hyperlipidemia. Continue statin. * Essential hypertension. Continue losartan. * COPD/lung disease. Continue home inhalers. On Ofev. * GERD. Continue PPI. DVT prophylaxis: Lovenox Code status: Full Patient will need hospitalization for at least 2 midnight for acute pancreatitis treatment with IV pain meds, NPO status and IV fluids. Quality Stroke Does the patient have a stroke diagnosis?: No VTE Prior VTE?: No VTE Risk Level:: Medical - moderate - high VTE Device Contraindication: Treatment Not Indicated VTE Drug Contraindication: N/A - Med Ordered
[2024-03-05 03:41] LABS: C Reactive Protein 1.17 mg/dL (< or = 0.50)
[2024-03-05 04:07] LABS: Amylase 51 U/L (28-100)
[2024-03-05] MEDS: Lactated Ringers 1,000 ML 100 ML IVCONT (05:18)
[2024-03-05 06:58] LABS: MANUAL DIFF FLAG NO
[2024-03-05 07:00] LABS: Basophils Percent Auto 0.4 % (0-2); Eosinophils Percent Auto 0.5 % (0-4); Hematocrit 33.8 % (37.0-47.0); Hemoglobin 11.9 g/dl (12.0-16.0); Imm Gran Abs Auto 0.03 X10*3/uL (0.00-0.03); Imm Gran Pct Auto 0.4 % (0.0-0.4); Lymphocytes Absolute Auto 2.1 X10*3/uL (1.2-4.9); Lymphocytes Percent Auto 27.9 % (20-40); Mean Corpuscular HGB Conc 35.2 g/dl (31.0-35.0); Mean Corpuscular Hemoglobin 33.7 pg (27.0-33.0); Mean Corpuscular Volume 95.8 fL (80.0-98.0); Mean Platelet Volume 10.8 fL (9.4-12.3); Monocytes Absolute Auto 0.4 X10*3/uL (0.1-1.2); Monocytes Percent Auto 5.8 % (2-11); Platelet Count 174 X10*3/uL (160-400); Red Blood Count 3.53 X10*6/uL (4.20-5.50); Red Cell Distribution Width 12.4 % (11.0-16.0); White Blood Count 7.6 X10*3/uL (4.8-10.8)
[2024-03-05 07:13] LABS: Lipase 14 U/L (8-78)
[2024-03-05 07:15] LABS: Glucose, Whole Blood 98 mg/dL (60-115)
[2024-03-05 07:17] LABS: Alanine Aminotransferase 12 U/L (0-31); Albumin Level 3.6 g/dL (3.5-5.0); Alkaline Phosphatase 61 U/L (39-117); Anion Gap 13 (12-20); Aspartate Amino Transferase 23 U/L (5-31); Bilirubin Total 0.7 mg/dL (0.0-1.0); Blood Urea Nitrogen 8 mg/dL (9-16); Calcium 8.8 mg/dL (8.4-10.2); Carbon Dioxide 28 mmol/L (22-29); Chloride 105 mmol/L (96-108); Estimated Glomerular Filt Rate > 60; Glucose Random 97 mg/dL (60-115); Potassium 3.7 mmol/L (3.3-5.1); Sodium 142 mmol/L (135-145); Total Protein 6.8 g/dL (6.5-8.0)
[2024-03-05] MEDS: Pantoprazole Sodium 40 MG/10 ML VIAL IVPUSH (08:39)
[2024-03-05] MEDS: HYDROmorphone HCl 1 MG/ML SYRINGE IVPUSH (08:45)
--- NOTE | 2024-03-05 08:59 | PHA.MEDREC ---
Addendum entered by Monserrat Reeves RPh 03/05/24 10:29: Patient said she takes symbicort as needed. Med rec was reviewed by MARYJANE. Original Note: Pharmacy Consult ? Medication Reconciliation Pharmacy has completed the medication reconciliation. Spoke to patient to confirm med list. Patient was able to confirm all her medications. Patient states she is no longer taking Lidocaine 5 % patch, and Ondansertron 4 mg. patent states she last took all her medications Friday03/04/24.
--- NOTE | 2024-03-05 09:52 | PC.NURSE ---
patient resting quietly in bed, resp even and unlabored. patient medicated per MAY, patient given prn Dilaudid for 7/10 abd pain. patient has LR running 100ml/hr
--- NOTE | 2024-03-05 11:31 | PM.EVENT ---
Event Note Date of Service: 03/05/24 Event Note: This patient is seen and examined patient has abd pain ,no vomiting no fevers Physical exam and assessment and plan coordinated in APCs note, Agree with the plan in addition: Acute pancreatitis without necrosis, pt has 2 of 3 criteria: Abdominal pain consistent with disease and findings on abdominal imaging. Lipase is normal. Admit to hospitalist service. NPO. IV fluids. Pain control with Dilaudid IV. Time Spent With Patient Time: Total time managing care of this patient today ____ minutes.
[2024-03-05 13:16] LABS: Glucose, Whole Blood 82 mg/dL (60-115)
[2024-03-05] MEDS: Cyanocobalamin (Vitamin B-12) 1,000 MCG TABLET 1000 MCG PO (13:16)
[2024-03-05] MEDS: Acetaminophen 325 MG TABLET 975 MG PO (13:16)
[2024-03-05] MEDS: oxyCODONE HCl Immed Release 5 MG TABLET PO (13:16)
[2024-03-05] MEDS: Lipase/Prot/Amylase 24/76/120K 1 CAP CAPSULE.DR 2 CAP PO ×2 (13:16→21:30)
[2024-03-05] MEDS: Metoprolol Succinate ER 50 MG TAB.ER.24H 150 MG PO (13:17)
[2024-03-05] MEDS: Sucralfate 1 GM TABLET 2 GM PO (13:17)
[2024-03-05] MEDS: mycophenolate mofetiL 250 MG CAPSULE 1000 MG PO ×2 (13:17→21:30)
[2024-03-05] MEDS: Gabapentin 100 MG CAPSULE 200 MG PO ×2 (13:17→21:30)
--- NOTE | 2024-03-05 15:11 | MHC.CM.PN ---
PT LIVES W/DGTER AND GRANDF SON HAS A JEWELRY RACKER AND RN VISITS MONTHLY THR [facility] SHE HAS A RIDE HOME DC PLAN HOMEW/FAMILY AND JEWELRY RACKER
[2024-03-05 16:49] LABS: Glucose, Whole Blood 66 mg/dL (60-115)
[2024-03-05] MEDS: Lactated Ringers 1,000 ML 80 ML IVCONT (16:56)
[2024-03-05 19:32] LABS: Glucose, Whole Blood 99 mg/dL (60-115)
[2024-03-05 20:54] LABS: Glucose, Whole Blood 131 mg/dL (60-115)
[2024-03-05] MEDS: NINTEDANIB 100 MG 100 EACH PO (21:28)
[2024-03-05] MEDS: Simethicone 80 MG TAB.CHEW 160 MG PO (21:29)
[2024-03-05] MEDS: Melatonin 3 MG TABLET 9 MG PO (21:29)
[2024-03-05] MEDS: traZODone HCL 100 MG TABLET PO (21:30)
[2024-03-05] MEDS: Atorvastatin Calcium 40 MG TABLET PO (21:30)
[2024-03-06 04:00] VITALS: BP 134/61; PULSE 56; RESP 18; TEMP 37.2; O2SAT 95
[2024-03-06] MEDS: Lactated Ringers 1,000 ML 80 ML IVCONT ×2 (06:23→18:28)
[2024-03-06] MEDS: NINTEDANIB 100 MG 100 EACH PO ×2 (07:11→18:27)
[2024-03-06 07:13] VITALS: BP 176/77; PULSE 64; RESP 16; TEMP 36.8; O2SAT 94
[2024-03-06 07:15] LABS: Glucose, Whole Blood 81 mg/dL (60-115)
[2024-03-06] MEDS: mycophenolate mofetiL 250 MG CAPSULE 1000 MG PO (07:22)
[2024-03-06] MEDS: Metoprolol Succinate ER 50 MG TAB.ER.24H 150 MG PO (07:22)
[2024-03-06] MEDS: amLODIPine Besylate 10 MG TABLET PO (07:23)
[2024-03-06] MEDS: Lipase/Prot/Amylase 24/76/120K 1 CAP CAPSULE.DR 2 CAP PO (07:23)
[2024-03-06] MEDS: Losartan Potassium 50 MG TABLET 100 MG PO (07:23)
[2024-03-06] MEDS: Simethicone 80 MG TAB.CHEW 160 MG PO (07:24)
[2024-03-06] MEDS: Aspirin Enteric Coated 81 MG TABLET.DR PO (07:24)
[2024-03-06] MEDS: Sucralfate 1 GM TABLET 2 GM PO (07:24)
[2024-03-06] MEDS: Cholecalciferol (Vitamin D3) 25 MCG TABLET 50 MCG PO (07:24)
[2024-03-06] MEDS: Cyanocobalamin (Vitamin B-12) 1,000 MCG TABLET 1000 MCG PO (07:24)
[2024-03-06] MEDS: Enoxaparin Sodium 40 MG/0.4 ML SYRINGE SUBCUT (07:25)
[2024-03-06] MEDS: Pantoprazole Sodium 40 MG/10 ML VIAL IVPUSH (07:25)
[2024-03-06] MEDS: 0.9 % Sodium Chloride Flush 3 ML SYRINGE IVFLUSH (07:25)
[2024-03-06] MEDS: Gabapentin 100 MG CAPSULE 200 MG PO (07:28)
[2024-03-06 09:01] LABS: Anion Gap 13 (12-20); Blood Urea Nitrogen 9 mg/dL (9-16); Calcium 8.9 mg/dL (8.4-10.2); Carbon Dioxide 30 mmol/L (22-29); Chloride 102 mmol/L (96-108); Creatinine Clr Calc Pharmacy 80.7; Estimated Glomerular Filt Rate > 60; Glucose Random 125 mg/dL (60-115); Potassium 3.7 mmol/L (3.3-5.1); Sodium 141 mmol/L (135-145); Triglycerides 68 mg/dL (<150)
[2024-03-06] MEDS: HYDROmorphone HCl 1 MG/ML SYRINGE IVPUSH (09:56)
[2024-03-06] MEDS: ondansetron HCL 4 MG/2 ML VIAL IVPUSH (10:57)
--- NOTE | 2024-03-06 11:13 | PM.GICN ---
History of Present Illness Data of Consult Service Date: 03/06/24 Requesting physician: Keyur Alfred Primary Care Provider: Aarti Thacker MD HPI Reason for consult: Pancreatitis of unclear etiology 73 years old [place]an speaking female with GERD, IBS, type 2 diabetes mellitus, COPD, essential hypertension and hyperlipidemia seen at [facility] ED on 03/05/24 with nausea and 10/10 LLQ abd pain x 2 days [employer]. Hx obatined with the help of an [facility] windows architect, [place]. Pt described the pain as a colicky and radiated to the left mid back. Pt denied vomiting, constipation, diarrhea, fevers or chills - she had a BM on which was normal. Her last meal before onset of symptoms was a piece of pizza. Pt reports having similar pain intermittently in the past and never this severe and a cause has not been identified. She denied fever, chills, sweating or a hx of alcohol abuse. Pt takes 2 meals a day and denies recent change in appetite or wt. She gives a hx of constipation alternating with diarrhea. Pt is followed in GI by Jeannine Rendon NP for IBS and bloating and was prescibed Creon for abdominal bloating Pt denied any acute cardiopulmonary or genitourinary symptoms. Pt reports she was started on Ofev 4 months ago for pulmonary fibrosis and denies starting any other new medications Surgical history significant for cholecystectomy > 20 yrs ago and TAHBSO. Pt denies known family history of pancreatic disease, colon polyps or GI malignancy In the ED, she was found to have stable vital signs. Labs showed mild leukocytosis of 11.2. Hemoglobin and platelets are normal. There are no electrolyte imbalances. Renal function is normal. LFTs are unremarkable except for slight elevation of AST. Lipase is normal, 14. Troponin is less than 2.7. Urinalysis showed no evidence of UTI. ED tx: Toradol 30 mg IV, fentanyl 50 mcg, Zofran 4 mg IV 03/05/[address] SCAN SHOWED: 1. Moderate fat stranding surrounding the pancreatic body and tail potentially indicating acute interstitial edematous pancreatitis. No demonstrated peripancreatic fluid collection. Recommend correlation with pancreatic serum markers. 2. Diverticulosis without evidence of diverticulitis. Review of Systems Review of Systems: Yes all other systems are reviewed and are negative PMFSH Past Medical History Medical History Lumbar facet arthropathy Lumbar disc herniation [id number] syndrome Renal cyst Left flank pain Thoracic spine pain Abnormal chest x-ray Lower abdominal pain JAREK (obstructive sleep apnea) Colon cancer screening Hepatic steatosis JAREK (obstructive sleep apnea) Bibasilar crackles Dyspnea Chronic restrictive lung disease ILD (interstitial lung disease) Memory loss COPD (chronic obstructive pulmonary disease) OAB (overactive bladder) History of postoperative nausea and vomiting Diabetes Insomnia Pulmonary arterial hypertension Family History Family History Father Hx of diabetes insipidus Mother Hx of diabetes insipidus Surgical History Surgical History History of cholecystectomy H/O esophagogastroduodenoscopy History of hernia repair History of colonoscopy Social History Social History Household Members: Family Housing: Apartment Do you presently have visiting nurse or other home services: Yes Alcohol intake: never Patient Tobacco Use Status: Never used Tobacco Years Smoked: 1yr Second Hand Smoke Exposure: No service: No Current occupational status: retired [employer] Allergies Allergy/AdvReac Type Severity Reaction Status Date / Time morphine [MORPHINE] Allergy Mild NAUSEA, Verified 03/04/24 13:22 VOMITING, DIZZINESS, HOT FLASHES lactose AdvReac Unknown GI upset Verified 03/04/24 13:22 Active Medications: Current Medications Acetaminophen (Acetaminophen 325 Mg Tablet) 975 mg PO Q6H PRN PRN Reason: Pain, Mild (Pain Scale 1-3), fever or headache Last Admin: 03/05/24 13:16 Dose: 975 mg Albuterol Sulfate (Albuterol Sulfate 90 Mcg 8 Gm Inhaler) 2 puff INHALE Q4H PRN PRN Reason: Shortness Of Breath Or Wheezing Amlodipine Besylate (Amlodipine Besylate 10 Mg Tablet) 10 mg PO DAILY [facility]; Protocol Last Admin: 03/06/24 07:23 Dose: 10 mg Lipase/Protease/Amylase (Lipase/Prot/Amylase 24/76/120k 1 Cap Capsule.) 2 cap PO BID ROSA Last Admin: 03/06/24 07:23 Dose: 2 cap Aspirin (Aspirin Enteric Coated 81 Mg Tablet.) 81 mg PO DAILY [facility] Last Admin: 03/06/24 07:24 Dose: 81 mg Atorvastatin Calcium (Atorvastatin Calcium 40 Mg Tablet) 40 mg PO BEDTIME [facility] Last Admin: 03/05/24 21:30 Dose: 40 mg Calcium Carbonate (Calcium Carbonate 750 Mg Tab.Chew) 750 mg PO Q4H PRN PRN Reason: Heartburn Cyanocobalamin (Cyanocobalamin (Vitamin B-12) 1,000 Mcg Tablet) 1,000 mcg PO DAILY [facility] Last Admin: 03/06/24 07:24 Dose: 1,000 mcg Enoxaparin Sodium (Enoxaparin Sodium 40 Mg/0.4 Ml Syringe) 40 mg SUBCUT Q24H [facility] Last Admin: 03/06/24 07:25 Dose: 40 mg Fluticasone/Vilanterol (Fluticasone/Vilanterol 200/25 Blst.W.Dev) 1 puff INHALE RDAILY PRN PRN Reason: Shortness Of Breath Or Wheezing Furosemide (Furosemide 20 Mg Tablet) 20 mg PO DAILY PRN; Protocol PRN Reason: edema Gabapentin (Gabapentin 100 Mg Capsule) 200 mg PO BID [facility] Last Admin: 03/06/24 07:28 Dose: 100 mg Glucose (Glucose Gel 15 Gm Gel..Gram.) 15 gm PO Q15M PRN; Protocol PRN Reason: per Hypoglycemia Standing Ord. Hydromorphone HCl (Hydromorphone Hcl 1 Mg/Ml Syringe) 1 mg IVPUSH Q4H PRN; Protocol PRN Reason: Pain, Severe (Pain Scale 7-10) Last Admin: 03/06/24 09:56 Dose: 1 mg Dextrose (D10) 250 mls @ 750 mls/hr IV Q15M PRN; Protocol PRN Reason: per Hypoglycemia Standing Ord. Lactated Ringer's (Lr) 1,000 mls @ 80 mls/hr IVCONT .[id number] [facility] Last Admin: 03/06/24 06:23 Dose: 80 mls/hr Insulin Human Lispro (Insulin Lispro 100 Unit/Ml 3 Ml Vial) 0 unit SUBCUT QIDACHS [facility]; Protocol Last Admin: 03/06/24 07:12 Dose: Not Given Losartan Potassium (Losartan Potassium 50 Mg Tablet) 100 mg PO DAILY [facility]; Protocol Last Admin: 03/06/24 07:23 Dose: 100 mg Melatonin (Melatonin 3 Mg Tablet) 9 mg PO BEDTIME [facility] Last Admin: 03/05/24 21:29 Dose: 9 mg Metoprolol Succinate (Metoprolol Succinate Er 50 Mg Tab.Er.24h) 150 mg PO DAILY [facility]; Protocol Last Admin: 03/06/24 07:22 Dose: 150 mg Mirabegron (Mirabegron 25 Mg Tab.Er.24h) 25 mg PO DAILY [facility] Last Admin: 03/06/24 09:56 Dose: Not Given Mycophenolate Mofetil (Mycophenolate Mofetil 250 Mg Capsule) 1,000 mg PO BID [facility] Last Admin: 03/06/24 07:22 Dose: 1,000 mg Pt Own (Nintedanib [ Ofev] 100 Mg Capsule ) 100 mg PO Q12H [facility] Last Admin: 03/06/24 07:11 Dose: 100 mg Ondansetron HCl (Ondansetron Hcl 4 Mg/2 Ml Vial) 4 mg IVPUSH Q6H PRN PRN Reason: Nausea and Vomiting Last Admin: 03/06/24 10:57 Dose: 4 mg Oxycodone HCl (Oxycodone Hcl Immed Release 5 Mg Tablet) 5 mg PO TID PRN PRN Reason: Pain Last Admin: 03/05/24 13:16 Dose: 5 mg Pantoprazole Sodium (Pantoprazole Sodium 40 Mg/10 Ml Vial) 40 mg IVPUSH DAILY [facility] Last Admin: 03/06/24 07:25 Dose: 40 mg Simethicone (Simethicone 80 Mg Tab.Chew) 160 mg PO BID [facility] Last Admin: 03/06/24 07:24 Dose: 160 mg Sodium Chloride (0.9 % Sodium Chloride Flush 3 Ml Syringe) 3 ml IVFLUSH QSHIFT [facility] Last Admin: 03/06/24 07:25 Dose: 3 ml Sucralfate (Sucralfate 1 Gm Tablet) 2 gm PO DAILY [facility] Last Admin: 03/06/24 07:24 Dose: 2 gm Trazodone HCl (Trazodone Hcl 100 Mg Tablet) 100 mg PO BEDTIME [facility] Last Admin: 03/05/24 21:30 Dose: 100 mg Vitamin D (Cholecalciferol (Vitamin D3) 25 Mcg Tablet) 50 mcg PO DAILY [facility] Last Admin: 03/06/24 07:24 Dose: 50 mcg Home Medications ?Medication ?Instructions ?Recorded ?Confirmed ?Last Taken ?Type amlodipine 10 mg tablet 10 mg PO DAILY 01/17/20 03/05/24 03/03/24 History aspirin 81 mg tablet,delayed 81 mg PO DAILY 01/17/20 03/05/24 03/03/24 History release atorvastatin 40 mg tablet 40 mg PO BEDTIME 01/17/20 03/05/24 03/03/24 History cyanocobalamin (vitamin B-12) 1,000 mcg PO DAILY 01/17/20 03/05/24 03/03/24 History 1,000 mcg tablet losartan 100 mg tablet 100 mg PO DAILY 01/17/20 03/05/24 03/03/24 History melatonin 5 mg tablet 10 mg PO BEDTIME 01/17/20 03/05/24 03/03/24 History blood sugar diagnostic #10 ea 07/24/20 12/16/23 Unknown History lancets 33 gauge #100 ea 07/24/20 12/16/23 Unknown History metformin 500 mg tablet,extended 1,000 mg PO BID 07/24/20 03/05/24 03/03/24 History release 24 hr glipizide 5 mg tablet, extended 5 mg PO DAILY 10/08/22 03/05/24 03/03/24 History release 24 hr metoprolol succinate 100 mg 150 mg PO DAILY 10/08/22 03/05/24 03/03/24 History tablet,extended release 24 hr oxycodone-acetaminophen 5 mg-325 1 tab PO TID PRN Pain 12/03/23 03/05/24 Unknown History mg tablet albuterol sulfate 90 mcg/actuation 2 inh inhalation Q4-6H PRN 03/05/24 03/05/24 Unknown History aerosol inhaler (Ventolin HFA) Shortness Of Breath Or Wheezing budesonide-formoterol HFA 160 2 puff inhalation BID PRN 03/05/24 03/05/24 03/03/24 History mcg-4.5 mcg/actuation aerosol Shortness Of Breath Or Wheezing inhaler (Symbicort) cholecalciferol (vitamin D3) 50 50 mcg PO DAILY 03/05/24 03/05/24 03/03/24 History mcg (2,000 unit) capsule (Vitamin D3) gabapentin 100 mg capsule 200 mg PO BID 03/05/24 03/05/24 03/03/24 History [id number] 2 cap PO BID 03/05/24 03/05/24 03/03/24 History 24,000-76,000-120,000 unit capsule,delayed rel (Creon) mirabegron 25 mg tablet,extended 25 mg PO DAILY 03/05/24 03/05/24 03/03/24 History release 24 hr (Myrbetriq) nintedanib 100 mg capsule (Ofev) 100 mg PO Q12H 03/05/24 03/05/24 03/03/24 History omeprazole 20 mg capsule,delayed 20 mg PO DAILY@0630 03/05/24 03/05/24 03/03/24 History release sitagliptin phosphate 50 mg tablet 50 mg PO DAILY 03/05/24 03/05/24 Unknown History (Shivani) sucralfate 1 gram tablet 2 g PO DAILY 03/05/24 03/05/24 03/03/24 History Physical Exam Vital Signs: Vital Signs: Last Vital Signs Temp 98.3 F 03/06/24 07:13 Pulse 64 03/06/24 07:13 Resp 16 03/06/24 07:13 BP 176/77 H 03/06/24 07:13 Pulse Ox 94 03/06/24 07:13 O2 Del Method Room Air 03/06/24 07:13 BMI result Body Mass Index 31.4 Const: General: healthy appearing and no acute distress Nutritional Appearance: obese Orientation/consciousness: patient oriented x3 Limitations: language barrier HEENT: Head: Yes normal to inspection Ears: hearing grossly normal bilaterally Mouth: Normal oral and palatal mucosa present Eyes: Sclerae: sclerae normal Pupils: Equal, round and reactive pupils present Neck: Neck: Yes normal visual inspection Chest: Chest palpation & inspection: normal inspection of the chest Resp: Effort & Inspection: normal respiratory effort Auscultation: clear to auscultation bilaterally Cardio: Palpation: normal PMI Rate: regular rate Rhythm: regular rhythm Heart sounds: S1 normal heart sound present, S2 normal heart sound present and no murmurs GI: Palpation (GI): Soft to palpation, Tenderness to palpation present (GI) (mild epigastric tenderness without rebound) and No hepatosplenomegaly present Auscultation: normal bowel sounds Rectal Exam - Female: deferred Skin: General skin exam: no rashes or lesions noted Neuro: General: patient oriented x3, gait normal and moves all extremities Cranial nerves: Yes Equal, round and reactive pupils present Psych: Appearance: grossly normal Mental Status: mental status grossly normal Results Labs 03/05/24 06:52 03/07/24 05:15 Labs: BMP 03/06/24 08:22 Sodium 141 Potassium 3.7 Chloride 102 Carbon Dioxide 30 H BUN 9 Creatinine 0.57 Calcium 8.9 Assessment and Plan (1) Acute pancreatitis: Qualifiers: Acute pancreatitis complication: no infection or necrosis Pancreatitis type: unspecified pancreatitis type Qualified Code(s): K85.90 - Acute pancreatitis without necrosis or infection, unspecified Status: Acute (2) GERD (gastroesophageal reflux disease): Status: Acute (3) Abdominal pain: Qualifiers: Abdominal location: left upper quadrant Qualified Code(s): R10.12 - Left upper quadrant pain Status: Acute Plan 73 years old [place] speaking female with GERD, IBS, type 2 diabetes mellitus, COPD, essential hypertension and hyperlipidemia seen at [facility] ED on 03/05/24 with nausea and 10/10 LLQ abd pain x 2 days [employer]. Pt reports having similar pain intermittently in the past and never this severe and a cause has not been identified. Pt is followed in GI by Jeannine Rendon NP for IBS and bloating and was prescibed Creon for abdominal bloating Surgical history significant for cholecystectomy > 20 yrs ago and TAHBSO. Labs showed mild leukocytosis of 11.2. Hemoglobin and platelets are normal. There are no electrolyte imbalances. Renal function is normal. LFTs are unremarkable except for slight elevation of AST. Lipase is normal, 14. Troponin is less than 2.7. 03/05/[address] SCAN SHOWED: 1. Moderate fat stranding surrounding the pancreatic body and tail potentially indicating acute interstitial edematous pancreatitis. No demonstrated peripancreatic fluid collection. Recommend correlation with pancreatic serum markers. 2. Diverticulosis without evidence of diverticulitis. Acute pancreatitis of unclear etiology. No obvious risk factors for pancreatits Pt reports she was started on Ofev 4 months ago for pulmonary fibrosis and denies starting any other new medications (Pancreatitis has been reported as a side effect of Ofev) RECOMMENDATIONS: 1. Agree with IV fluids, antiemetics and pain medications 2. MR abdomen to rule out occult pancreatic malignancy 3. Clear liquid diet and advance diet as tolerated 3. CEA and CA 19-9 with am labs Pt can FU with Jeannine Rendon NP after discharge (has an appt on 06/16/24) Procedures Date of Service Date of Service: 03/07/24
[2024-03-06 11:53] LABS: Glucose, Whole Blood 113 mg/dL (60-115)
--- NOTE | 2024-03-06 12:52 | P.PNIM_ITS ---
Subjective Subjective Date of Service: 03/06/24 Interval History: acute pancreatitis Review of Systems abd pain seems similar unable to tolerate po yet feels nauseated Physical Exam 2 Vital Signs: Vital Signs: Last Vital Signs Temp 98.3 F 03/06/24 07:13 Pulse 64 03/06/24 07:13 Resp 16 03/06/24 07:13 BP 176/77 H 03/06/24 07:13 Pulse Ox 94 03/06/24 07:13 O2 Del Method Room Air 03/06/24 07:13 BMI result Body Mass Index 31.4 Appearance: Alert.? Oriented X3.? cvs: rrr, [id number] , no murmur res: clear to auscultation ,no rhonchii or wheezing abd: no rebound or guarding ,llq pain, bs present. ext pulses present , no cyanosis . neuro: axo3 , nonfocal. Objective Data Active Medications Acetaminophen (Acetaminophen 325 Mg Tablet) 975 mg PO Q6H PRN PRN Reason: Pain, Mild (Pain Scale 1-3), fever or headache Last Admin: 03/05/24 13:16 Dose: 975 mg Documented By: JILLIAN Albuterol Sulfate (Albuterol Sulfate 90 Mcg 8 Gm Inhaler) 2 puff INHALE Q4H PRN PRN Reason: Shortness Of Breath Or Wheezing Amlodipine Besylate (Amlodipine Besylate 10 Mg Tablet) 10 mg PO DAILY [facility]; Protocol Last Admin: 03/06/24 07:23 Dose: 10 mg Documented By: NANY Lipase/Protease/Amylase (Lipase/Prot/Amylase 24/76/120k 1 Cap Capsule.) 2 cap PO BID [facility] Last Admin: 03/06/24 07:23 Dose: 2 cap Documented By: NANY Aspirin (Aspirin Enteric Coated 81 Mg Tablet.) 81 mg PO DAILY [facility] Last Admin: 03/06/24 07:24 Dose: 81 mg Documented By: NANY Atorvastatin Calcium (Atorvastatin Calcium 40 Mg Tablet) 40 mg PO BEDTIME [facility] Last Admin: 03/05/24 21:30 Dose: 40 mg Documented By: CASTILMary Calcium Carbonate (Calcium Carbonate 750 Mg Tab.Chew) 750 mg PO Q4H PRN PRN Reason: Heartburn Cyanocobalamin (Cyanocobalamin (Vitamin B-12) 1,000 Mcg Tablet) 1,000 mcg PO DAILY [facility] Last Admin: 03/06/24 07:24 Dose: 1,000 mcg Documented By: NANY Enoxaparin Sodium (Enoxaparin Sodium 40 Mg/0.4 Ml Syringe) 40 mg SUBCUT Q24H [facility] Last Admin: 03/06/24 07:25 Dose: 40 mg Documented By: NANY Fluticasone/Vilanterol (Fluticasone/Vilanterol 200/25 Blst.W.Dev) 1 puff INHALE RDAILY PRN PRN Reason: Shortness Of Breath Or Wheezing Furosemide (Furosemide 20 Mg Tablet) 20 mg PO DAILY PRN; Protocol PRN Reason: edema Gabapentin (Gabapentin 100 Mg Capsule) 200 mg PO BID [facility] Last Admin: 03/06/24 07:28 Dose: 100 mg Documented By: NANY Comments: pt requested 100mg because 200 is too much and this is how she takes it at home Glucose (Glucose Gel 15 Gm Gel..Gram.) 15 gm PO Q15M PRN; Protocol PRN Reason: per Hypoglycemia Standing Ord. Hydromorphone HCl (Hydromorphone Hcl 1 Mg/Ml Syringe) 1 mg IVPUSH Q4H PRN; Protocol PRN Reason: Pain, Severe (Pain Scale 7-10) Last Admin: 03/06/24 09:56 Dose: 1 mg Documented By: NANY Dextrose (D10) 250 mls @ 750 mls/hr IV Q15M PRN; Protocol PRN Reason: per Hypoglycemia Standing Ord. Lactated Ringer's (Lr) 1,000 mls @ 80 mls/hr IVCONT .[id number] [facility] Last Admin: 03/06/24 06:23 Dose: 80 mls/hr Documented By: CARI Insulin Human Lispro (Insulin Lispro 100 Unit/Ml 3 Ml Vial) 0 unit SUBCUT QIDACHS [facility]; Protocol Last Admin: 03/06/24 12:02 Dose: Not Given Documented By: NANY Non-Admin Reason: No Insulin Coverage Losartan Potassium (Losartan Potassium 50 Mg Tablet) 100 mg PO DAILY [facility]; Protocol Last Admin: 03/06/24 07:23 Dose: 100 mg Documented By: NANY Melatonin (Melatonin 3 Mg Tablet) 9 mg PO BEDTIME [facility] Last Admin: 12/13/24 21:29 Dose: 9 mg Documented By: CASTILMary Metoprolol Succinate (Metoprolol Succinate Er 50 Mg Tab.Er.24h) 150 mg PO DAILY [facility]; Protocol Last Admin: 03/06/24 07:22 Dose: 150 mg Documented By: NANY Mirabegron (Mirabegron 25 Mg Tab.Er.24h) 25 mg PO DAILY [facility] Last Admin: 03/06/24 09:56 Dose: Not Given Documented By: NANY Non-Admin Reason: Patient Refused Mycophenolate Mofetil (Mycophenolate Mofetil 250 Mg Capsule) 1,000 mg PO BID [facility] Last Admin: 03/06/24 07:22 Dose: 1,000 mg Documented By: NANY Pt Own (Nintedanib [ Ofev] 100 Mg Capsule ) 100 mg PO Q12H [facility] Last Admin: 03/06/24 07:11 Dose: 100 mg Documented By: NANY Ondansetron HCl (Ondansetron Hcl 4 Mg/2 Ml Vial) 4 mg IVPUSH Q6H PRN PRN Reason: Nausea and Vomiting Last Admin: 03/06/24 10:57 Dose: 4 mg Documented By: NANY Oxycodone HCl (Oxycodone Hcl Immed Release 5 Mg Tablet) 5 mg PO TID PRN PRN Reason: Pain Last Admin: 03/05/24 13:16 Dose: 5 mg Documented By: JILLIAN Pantoprazole Sodium (Pantoprazole Sodium 40 Mg/10 Ml Vial) 40 mg IVPUSH DAILY [facility] Last Admin: 03/06/24 07:25 Dose: 40 mg Documented By: NANY Simethicone (Simethicone 80 Mg Tab.Chew) 160 mg PO BID [facility] Last Admin: 03/06/24 07:24 Dose: 160 mg Documented By: NANY Sodium Chloride (0.9 % Sodium Chloride Flush 3 Ml Syringe) 3 ml IVFLUSH QSHIFT [facility] Last Admin: 03/06/24 07:25 Dose: 3 ml Documented By: NANY Sucralfate (Sucralfate 1 Gm Tablet) 2 gm PO DAILY [facility] Last Admin: 03/06/24 07:24 Dose: 2 gm Documented By: NANY Trazodone HCl (Trazodone Hcl 100 Mg Tablet) 100 mg PO BEDTIME [facility] Last Admin: 03/05/24 21:30 Dose: 100 mg Documented By: SCOTT Vitamin D (Cholecalciferol (Vitamin D3) 25 Mcg Tablet) 50 mcg PO DAILY [facility] Last Admin: 03/06/24 07:24 Dose: 50 mcg Documented By: NANY Labs 03/05/24 06:52 03/06/24 08:22 Labs: Laboratory Results - last 24 hr 03/05/24 03/05/24 03/05/24 13:13 16:44 19:28 Anion Gap Estim Creat Clear Calc Estimated GFR POC Glucose 82 66 99 Random Glucose Calcium Triglycerides 03/05/24 03/06/24 03/06/24 20:48 07:11 08:22 Anion Gap 13 Estim Creat Clear Calc 80.7 Estimated GFR > 60 POC Glucose 131 H 81 Random Glucose 125 H Calcium 8.9 Triglycerides 68 03/06/24 11:48 Anion Gap Estim Creat Clear Calc Estimated GFR POC Glucose 113 Random Glucose Calcium Triglycerides Assessment and Plan (1) Acute pancreatitis: Status: Acute Assessment and Plan: 73 y/o woman admitted with: Acute pancreatitis Abdominal pain consistent with disease and findings on abdominal imaging. Lipase is normal. NPO. IV fluids. Pain control with Dilaudid IV. Type 2 diabetes mellitus. continue ivf , fs with sliding scale coverage -avoid coverage below 200 mg/dl. Hyperlipidemia. Continue statin. Essential hypertension. Continue losartan. COPD/lung disease. Continue home inhalers. On Ofev. GERD. Continue PPI. DVT prophylaxis: Lovenox. Code status: Full ongoing need for hospitalization ffor acute pancreatitis treatment with IV pain meds, NPO status and IV fluids. Quality Stroke Does the patient have a stroke diagnosis?: No VTE Prior VTE?: No VTE Risk Level:: Medical - moderate - high VTE Device Contraindication: Treatment Not Indicated VTE Drug Contraindication: N/A - Med Ordered
[2024-03-06 16:00] VITALS: BP 163/72; PULSE 57; RESP 18; TEMP 36.8; O2SAT 95
[2024-03-06 16:28] LABS: Glucose, Whole Blood 111 mg/dL (60-115)
[2024-03-06 17:33] VITALS: BP 141/65; PULSE 61
--- NOTE | 2024-03-06 18:18 | PC.NURSE ---
Pt stated that she will need anxiety medication before MRCP tomorrow. MD alerted.
[2024-03-06 19:16] VITALS: BP 149/71; PULSE 61; RESP 18; TEMP 36.5; O2SAT 93
[2024-03-06] MEDS: Acetaminophen 325 MG TABLET 975 MG PO (19:59)
[2024-03-06 20:00] LABS: Glucose, Whole Blood 118 mg/dL (60-115)
--- NOTE | 2024-03-06 21:50 | PC.NURSE ---
Pt seen in room ambulating ad adelaida, c/o MIKE, prn Tylenol given with good effect, POC 118, maintained on Clear Liquid diet, and IVF, pt is for MRCP tomorrow, NPO post MN instructed.
[2024-03-07 03:31] VITALS: BP 133/60; PULSE 53; RESP 14; TEMP 36.7; O2SAT 94
[2024-03-07] MEDS: Lactated Ringers 1,000 ML 80 ML IVCONT (06:06)
[2024-03-07 06:12] LABS: Alanine Aminotransferase 17 U/L (0-31); Albumin Level 3.5 g/dL (3.5-5.0); Alkaline Phosphatase 57 U/L (39-117); Anion Gap 9 (12-20); Aspartate Amino Transferase 22 U/L (5-31); Bilirubin Total 0.4 mg/dL (0.0-1.0); Blood Urea Nitrogen 7 mg/dL (9-16); Calcium 8.6 mg/dL (8.4-10.2); Carbon Dioxide 32 mmol/L (22-29); Chloride 106 mmol/L (96-108); Creatinine Clr Calc Pharmacy 69.7; Estimated Glomerular Filt Rate > 60; Glucose Random 86 mg/dL (60-115); Potassium 3.4 mmol/L (3.3-5.1); Sodium 144 mmol/L (135-145); Total Protein 6.5 g/dL (6.5-8.0)
[2024-03-07 07:17] VITALS: BP 164/75; PULSE 57; RESP 20; TEMP 36.2; O2SAT 96
[2024-03-07 07:17] LABS: Glucose, Whole Blood 89 mg/dL (60-115)
[2024-03-07] MEDS: HYDROmorphone HCl 1 MG/ML SYRINGE IVPUSH (07:26)
[2024-03-07] MEDS: Pantoprazole Sodium 40 MG/10 ML VIAL IVPUSH (08:25)
--- NOTE | 2024-03-07 08:28 | PC.NURSE ---
Advised by MD and technical communication teacher to hold all po meds. Consulted MD regarding elevated bp and MD advised to still hold all po meds. No new orders
[2024-03-07] MEDS: NINTEDANIB 100 MG 100 EACH PO ×2 (09:09→18:30)
[2024-03-07] MEDS: Gabapentin 100 MG CAPSULE 200 MG PO ×2 (09:10→21:34)
[2024-03-07] MEDS: amLODIPine Besylate 10 MG TABLET PO (09:11)
[2024-03-07] MEDS: Aspirin Enteric Coated 81 MG TABLET.DR PO (09:11)
[2024-03-07] MEDS: Metoprolol Succinate ER 50 MG TAB.ER.24H 150 MG PO (09:11)
[2024-03-07] MEDS: Losartan Potassium 50 MG TABLET 100 MG PO (09:11)
[2024-03-07] MEDS: Simethicone 80 MG TAB.CHEW 160 MG PO ×2 (09:12→21:34)
[2024-03-07] MEDS: LORazepam 2 MG/ML VIAL 1 MG IVPUSH (10:38)
[2024-03-07] MEDS: gadobutroL 10 ML VIAL IVPUSH (11:54)
[2024-03-07 12:19] LABS: Glucose, Whole Blood 92 mg/dL (60-115)
--- NOTE | 2024-03-07 12:47 | HO.PM.IMPN ---
Subjective Subjective Date of Service: 03/07/24 Interval History: acute pancreatitis Review of Systems abd pain improving denies any nausea or vomiting overnight Physical Exam Vital Signs: Vital Signs: Last Vital Signs Temp 97.2 F 03/07/24 07:17 Pulse 57 03/07/24 07:17 Resp 20 03/07/24 07:17 BP 164/75 H 03/07/24 07:17 Pulse Ox 96 03/07/24 07:17 O2 Del Method Room Air 03/07/24 07:17 BMI result Body Mass Index 31.4 Appearance: Alert.? Oriented X3.? cvs: rrr, [id number] . res: clear to auscultation ,no rhonchii or wheezing abd: no rebound or guarding ,llq pain, bs present. ext pulses present , no cyanosis . neuro: axo3 , nonfocal. Objective Data Active Medications Acetaminophen (Acetaminophen 325 Mg Tablet) 975 mg PO Q6H PRN PRN Reason: Pain, Mild (Pain Scale 1-3), fever or headache Last Admin: 03/06/24 19:59 Dose: 975 mg Documented By: SCOTT Albuterol Sulfate (Albuterol Sulfate 90 Mcg 8 Gm Inhaler) 2 puff INHALE Q4H PRN PRN Reason: Shortness Of Breath Or Wheezing Amlodipine Besylate (Amlodipine Besylate 10 Mg Tablet) 10 mg PO DAILY [facility]; Protocol Last Admin: 03/07/24 09:11 Dose: 10 mg Documented By: NANY Lipase/Protease/Amylase (Lipase/Prot/Amylase 24/76/120k 1 Cap Capsule.) 2 cap PO BID [facility] Last Admin: 03/07/24 08:22 Dose: Not Given Documented By: NANY Non-Admin Reason: Patient Refused Aspirin (Aspirin Enteric Coated 81 Mg Tablet.) 81 mg PO DAILY [facility] Last Admin: 03/07/24 09:11 Dose: 81 mg Documented By: NANY Atorvastatin Calcium (Atorvastatin Calcium 40 Mg Tablet) 40 mg PO BEDTIME [facility] Last Admin: 03/06/24 21:49 Dose: Not Given Documented By: SCOTT Non-Admin Reason: Patient Refused Calcium Carbonate (Calcium Carbonate 750 Mg Tab.Chew) 750 mg PO Q4H PRN PRN Reason: Heartburn Cyanocobalamin (Cyanocobalamin (Vitamin B-12) 1,000 Mcg Tablet) 1,000 mcg PO DAILY [facility] Last Admin: 03/07/24 08:21 Dose: Not Given Documented By: NANY Non-Admin Reason: Patient Refused Enoxaparin Sodium (Enoxaparin Sodium 40 Mg/0.4 Ml Syringe) 40 mg SUBCUT Q24H [facility] Last Admin: 03/07/24 08:22 Dose: Not Given Documented By: NANY Non-Admin Reason: Patient Refused Fluticasone/Vilanterol (Fluticasone/Vilanterol 200/25 Blst.W.Dev) 1 puff INHALE RDAILY PRN PRN Reason: Shortness Of Breath Or Wheezing Furosemide (Furosemide 20 Mg Tablet) 20 mg PO DAILY PRN; Protocol PRN Reason: edema Gabapentin (Gabapentin 100 Mg Capsule) 200 mg PO BID [facility] Last Admin: 03/07/24 09:10 Dose: 100 mg Documented By: NANY Comments: pt requested 100mg vs the ordered 200mg Glucose (Glucose Gel 15 Gm Gel..Gram.) 15 gm PO Q15M PRN; Protocol PRN Reason: per Hypoglycemia Standing Ord. Hydromorphone HCl (Hydromorphone Hcl 1 Mg/Ml Syringe) 1 mg IVPUSH Q4H PRN; Protocol PRN Reason: Pain, Severe (Pain Scale 7-10) Last Admin: 03/07/24 07:26 Dose: 1 mg Documented By: NANY Dextrose (D10) 250 mls @ 750 mls/hr IV Q15M PRN; Protocol PRN Reason: per Hypoglycemia Standing Ord. Lactated Ringer's (Lr) 1,000 mls @ 80 mls/hr IVCONT .[id number] [facility] Last Admin: 03/07/24 06:06 Dose: 80 mls/hr Documented By: BENITOILMary Insulin Human Lispro (Insulin Lispro 100 Unit/Ml 3 Ml Vial) 0 unit SUBCUT QIDACHS [facility]; Protocol Last Admin: 03/07/24 12:25 Dose: Not Given Documented By: NANY Non-Admin Reason: No Insulin Coverage Losartan Potassium (Losartan Potassium 50 Mg Tablet) 100 mg PO DAILY [facility]; Protocol Last Admin: 03/07/24 09:11 Dose: 100 mg Documented By: NAYN Melatonin (Melatonin 3 Mg Tablet) 9 mg PO BEDTIME [facility] Last Admin: 03/06/24 21:50 Dose: Not Given Documented By: SCOTT Non-Admin Reason: Patient Refused Metoprolol Succinate (Metoprolol Succinate Er 50 Mg Tab.Er.24h) 150 mg PO DAILY [facility]; Protocol Last Admin: 03/07/24 09:11 Dose: 150 mg Documented By: NANY Mirabegron (Mirabegron 25 Mg Tab.Er.24h) 25 mg PO DAILY [facility] Last Admin: 03/07/24 08:22 Dose: Not Given Documented By: NANY Non-Admin Reason: Patient Refused Mycophenolate Mofetil (Mycophenolate Mofetil 250 Mg Capsule) 1,000 mg PO BID [facility] Last Admin: 03/07/24 08:22 Dose: Not Given Documented By: NANY Non-Admin Reason: Patient Refused Pt Own (Nintedanib [ Ofev] 100 Mg Capsule ) 100 mg PO Q12H [facility] Last Admin: 03/07/24 09:09 Dose: 100 mg Documented By: NANY Ondansetron HCl (Ondansetron Hcl 4 Mg/2 Ml Vial) 4 mg IVPUSH Q6H PRN PRN Reason: Nausea and Vomiting Last Admin: 03/06/24 10:57 Dose: 4 mg Documented By: NANY Oxycodone HCl (Oxycodone Hcl Immed Release 5 Mg Tablet) 5 mg PO TID PRN PRN Reason: Pain Last Admin: 03/05/24 13:16 Dose: 5 mg Documented By: JILLIAN Pantoprazole Sodium (Pantoprazole Sodium 40 Mg/10 Ml Vial) 40 mg IVPUSH DAILY [facility] Last Admin: 03/07/24 08:25 Dose: 40 mg Documented By: NANY Simethicone (Simethicone 80 Mg Tab.Chew) 160 mg PO BID [facility] Last Admin: 03/07/24 09:12 Dose: 160 mg Documented By: NANY Sodium Chloride (0.9 % Sodium Chloride Flush 3 Ml Syringe) 3 ml IVFLUSH QSHIFT [facility] Last Admin: 03/07/24 06:59 Dose: Not Given Documented By: NANY Non-Admin Reason: IV Running Sucralfate (Sucralfate 1 Gm Tablet) 2 gm PO DAILY [facility] Last Admin: 03/07/24 08:23 Dose: Not Given Documented By: NANY Non-Admin Reason: Patient Refused Trazodone HCl (Trazodone Hcl 100 Mg Tablet) 100 mg PO BEDTIME [facility] Last Admin: 03/06/24 21:50 Dose: Not Given Documented By: SCOTT Non-Admin Reason: Patient Refused Vitamin D (Cholecalciferol (Vitamin D3) 25 Mcg Tablet) 50 mcg PO DAILY [facility] Last Admin: 03/07/24 08:21 Dose: Not Given Documented By: NANY Non-Admin Reason: Patient Refused Labs 03/05/24 06:52 03/07/24 05:15 Labs: Laboratory Results - last 24 hr 03/06/24 03/06/24 03/07/24 16:11 19:57 05:15 Hold Purple Top SEE NOTE Anion Gap 9 L Estim Creat Clear Calc 69.7 Estimated GFR > 60 POC Glucose 111 118 H Random Glucose 86 Calcium 8.6 Total Bilirubin 0.4 AST 22 ALT 17 Alkaline Phosphatase 57 Total Protein 6.5 Albumin 3.5 Carcinoembryonic Ag 4.00 03/07/24 03/07/24 07:12 12:17 Hold Purple Top Anion Gap Estim Creat Clear Calc Estimated GFR POC Glucose 89 92 Random Glucose Calcium Total Bilirubin AST ALT Alkaline Phosphatase Total Protein Albumin Carcinoembryonic Ag Assessment and Plan (1) Acute pancreatitis: Status: Acute Plan 73 y/o woman admitted with: Acute pancreatitis without necrosis, pt has 2 of 3 criteria: Abdominal pain consistent with disease and findings on abdominal imaging. Lipase is normal. Tg normal ,IgG subclasses pending Gi eval noted -cea and mri added -due to unclear etiology of pancreatitis IV fluids. Pain control with Dilaudid IV. Type 2 diabetes mellitus. fs with coverage -avoid coverage below 200 mg/dl. Hyperlipidemia. Continue statin. Essential hypertension. Continue losartan. COPD/lung disease. Continue home inhalers. On Ofev. GERD. Continue PPI. DVT prophylaxis: Lovenox ongoing need for hospitalization - acute pancreatitis treatment with IV pain meds, and IV fluids, trial of po ,as well as workup for pancreatitis ,Gi followup as above. Quality Stroke Does the patient have a stroke diagnosis?: No VTE Prior VTE?: No VTE Risk Level:: Medical - moderate - high VTE Device Contraindication: Treatment Not Indicated VTE Drug Contraindication: N/A - Med Ordered
[2024-03-07 15:13] VITALS: BP 142/63; PULSE 58; RESP 20; TEMP 37.2; O2SAT 96
[2024-03-07 16:17] LABS: Glucose, Whole Blood 90 mg/dL (60-115)
[2024-03-07 19:59] LABS: Glucose, Whole Blood 133 mg/dL (60-115)
[2024-03-07 20:00] VITALS: BP 142/60; PULSE 62; RESP 20; TEMP 36.3; O2SAT 96
[2024-03-07] MEDS: Lipase/Prot/Amylase 24/76/120K 1 CAP CAPSULE.DR 2 CAP PO (21:33)
[2024-03-07] MEDS: mycophenolate mofetiL 250 MG CAPSULE 1000 MG PO (21:33)
[2024-03-07] MEDS: Atorvastatin Calcium 40 MG TABLET PO (21:34)
[2024-03-07] MEDS: Melatonin 3 MG TABLET 9 MG PO (21:34)
[2024-03-07] MEDS: traZODone HCL 100 MG TABLET PO (21:34)
[2024-03-07] MEDS: 0.9 % Sodium Chloride Flush 3 ML SYRINGE IVFLUSH (21:46)
[2024-03-07 23:43] VITALS: BP 105/53; PULSE 57; RESP 18; TEMP 36.2; O2SAT 95
[2024-03-08 07:33] VITALS: BP 122/60; PULSE 59; RESP 16; TEMP 36.7; O2SAT 97
[2024-03-08 07:40] LABS: Glucose, Whole Blood 89 mg/dL (60-115)
[2024-03-08] MEDS: NINTEDANIB 100 MG 100 EACH PO ×2 (08:42→18:36)
[2024-03-08] MEDS: Pantoprazole Sodium 40 MG/10 ML VIAL IVPUSH (08:44)
[2024-03-08] MEDS: Gabapentin 100 MG CAPSULE 200 MG PO ×2 (08:45→21:01)
[2024-03-08] MEDS: 0.9 % Sodium Chloride Flush 3 ML SYRINGE IVFLUSH ×2 (08:46→21:10)
[2024-03-08] MEDS: Simethicone 80 MG TAB.CHEW 160 MG PO ×2 (09:53→21:01)
[2024-03-08] MEDS: Losartan Potassium 50 MG TABLET 100 MG PO (09:53)
[2024-03-08] MEDS: Sucralfate 1 GM TABLET 2 GM PO (09:53)
[2024-03-08] MEDS: Mirabegron 25 MG TAB.ER.24H PO (09:53)
[2024-03-08] MEDS: amLODIPine Besylate 10 MG TABLET PO (09:53)
[2024-03-08] MEDS: mycophenolate mofetiL 250 MG CAPSULE 1000 MG PO ×2 (09:53→21:01)
[2024-03-08] MEDS: Cholecalciferol (Vitamin D3) 25 MCG TABLET 50 MCG PO (09:53)
[2024-03-08] MEDS: Cyanocobalamin (Vitamin B-12) 1,000 MCG TABLET 1000 MCG PO (09:54)
[2024-03-08] MEDS: Aspirin Enteric Coated 81 MG TABLET.DR PO (09:54)
[2024-03-08] MEDS: Lipase/Prot/Amylase 24/76/120K 1 CAP CAPSULE.DR 2 CAP PO ×2 (09:54→21:01)
[2024-03-08] MEDS: Metoprolol Succinate ER 50 MG TAB.ER.24H 150 MG PO (09:58)
[2024-03-08 11:30] LABS: Glucose, Whole Blood 244 mg/dL (60-115)
[2024-03-08] MEDS: Insulin Lispro 100 UNIT/ML 3 ML VIAL SUBCUT (11:38)
[2024-03-08 12:00] VITALS: BP 155/72; PULSE 62; RESP 20; TEMP 36.4; O2SAT 98
--- NOTE | 2024-03-08 12:20 | MHC.CM.PN ---
IMM 03/08/24 Patient is discharged to home with resumption of [employer] and monthly RN visit thru [facility]. Patient will arrange for transportation home.
--- NOTE | 2024-03-08 14:44 | P.PNIM_ITS ---
Subjective Subjective Date of Service: 03/08/24 Interval History: abd pain Review of Systems seems improving Physical Exam 2 Vital Signs: Vital Signs: Last Vital Signs Temp 97.6 F 03/08/24 12:00 Pulse 62 03/08/24 12:00 Resp 20 03/08/24 12:00 BP 155/72 H 03/08/24 12:00 Pulse Ox 98 03/08/24 12:00 O2 Del Method Room Air 03/08/24 12:00 BMI result Body Mass Index 31.4 Appearance: Alert.? Oriented X3.? cvs: rrr, [id number] . res: clear to auscultation ,no rhonchii or wheezing abd: no rebound or guarding ,llq pain, bs present. ext pulses present , no cyanosis . neuro: axo3 , nonfocal. Objective Data Active Medications Acetaminophen (Acetaminophen 325 Mg Tablet) 975 mg PO Q6H PRN PRN Reason: Pain, Mild (Pain Scale 1-3), fever or headache Last Admin: 03/06/24 19:59 Dose: 975 mg Documented By: SCOTT Albuterol Sulfate (Albuterol Sulfate 90 Mcg 8 Gm Inhaler) 2 puff INHALE Q4H PRN PRN Reason: Shortness Of Breath Or Wheezing Amlodipine Besylate (Amlodipine Besylate 10 Mg Tablet) 10 mg PO DAILY [facility]; Protocol Last Admin: 03/08/24 09:53 Dose: 10 mg Documented By: BITA Lipase/Protease/Amylase (Lipase/Prot/Amylase 24/76/120k 1 Cap Capsule.) 2 cap PO BID [facility] Last Admin: 03/08/24 09:54 Dose: 2 cap Documented By: BITA Aspirin (Aspirin Enteric Coated 81 Mg Tablet.) 81 mg PO DAILY [facility] Last Admin: 03/08/24 09:54 Dose: 81 mg Documented By: BITA Atorvastatin Calcium (Atorvastatin Calcium 40 Mg Tablet) 40 mg PO BEDTIME [facility] Last Admin: 03/07/24 21:34 Dose: 40 mg Documented By: JOSE Calcium Carbonate (Calcium Carbonate 750 Mg Tab.Chew) 750 mg PO Q4H PRN PRN Reason: Heartburn Cyanocobalamin (Cyanocobalamin (Vitamin B-12) 1,000 Mcg Tablet) 1,000 mcg PO DAILY [facility] Last Admin: 03/08/24 09:54 Dose: 1,000 mcg Documented By: BITA Enoxaparin Sodium (Enoxaparin Sodium 40 Mg/0.4 Ml Syringe) 40 mg SUBCUT Q24H [facility] Last Admin: 03/08/24 08:44 Dose: Not Given Documented By: BITA Non-Admin Reason: Patient Refused Fluticasone/Vilanterol (Fluticasone/Vilanterol 200/25 Blst.W.Dev) 1 puff INHALE RDAILY PRN PRN Reason: Shortness Of Breath Or Wheezing Furosemide (Furosemide 20 Mg Tablet) 20 mg PO DAILY PRN; Protocol PRN Reason: edema Gabapentin (Gabapentin 100 Mg Capsule) 200 mg PO BID [facility] Last Admin: 03/08/24 08:45 Dose: 200 mg Documented By: BITA Glucose (Glucose Gel 15 Gm Gel..Gram.) 15 gm PO Q15M PRN; Protocol PRN Reason: per Hypoglycemia Standing Ord. Dextrose (D10) 250 mls @ 750 mls/hr IV Q15M PRN; Protocol PRN Reason: per Hypoglycemia Standing Ord. Insulin Human Lispro (Insulin Lispro 100 Unit/Ml 3 Ml Vial) 0 unit SUBCUT QIDACHS [facility]; Protocol Last Admin: 03/08/24 11:38 Dose: 2 unit Documented By: BITA Losartan Potassium (Losartan Potassium 50 Mg Tablet) 100 mg PO DAILY [facility]; Protocol Last Admin: 03/08/24 09:53 Dose: 100 mg Documented By: BITA Melatonin (Melatonin 3 Mg Tablet) 9 mg PO BEDTIME [facility] Last Admin: 03/07/24 21:34 Dose: 9 mg Documented By: JOSE Metoprolol Succinate (Metoprolol Succinate Er 50 Mg Tab.Er.24h) 150 mg PO DAILY [facility]; Protocol Last Admin: 03/08/24 09:58 Dose: 150 mg Documented By: BITA Mirabegron (Mirabegron 25 Mg Tab.Er.24h) 25 mg PO DAILY [facility] Last Admin: 03/08/24 09:53 Dose: 25 mg Documented By: BITA Mycophenolate Mofetil (Mycophenolate Mofetil 250 Mg Capsule) 1,000 mg PO BID [facility] Last Admin: 03/08/24 09:53 Dose: 1,000 mg Documented By: BITA Pt Own (Nintedanib [ Ofev] 100 Mg Capsule ) 100 mg PO Q12H [facility] Last Admin: 03/08/24 08:42 Dose: 100 mg Documented By: BITA Ondansetron HCl (Ondansetron Hcl 4 Mg/2 Ml Vial) 4 mg IVPUSH Q6H PRN PRN Reason: Nausea and Vomiting Last Admin: 03/06/24 10:57 Dose: 4 mg Documented By: NANY Oxycodone HCl (Oxycodone Hcl Immed Release 5 Mg Tablet) 5 mg PO TID PRN PRN Reason: Pain Last Admin: 03/05/24 13:16 Dose: 5 mg Documented By: JILLIAN Simethicone (Simethicone 80 Mg Tab.Chew) 160 mg PO BID [facility] Last Admin: 03/08/24 09:53 Dose: 160 mg Documented By: BITA Sodium Chloride (0.9 % Sodium Chloride Flush 3 Ml Syringe) 3 ml IVFLUSH QSHIFT [facility] Last Admin: 03/08/24 08:46 Dose: 3 ml Documented By: BITA Sucralfate (Sucralfate 1 Gm Tablet) 2 gm PO DAILY [facility] Last Admin: 03/08/24 09:53 Dose: 2 gm Documented By: BITA Trazodone HCl (Trazodone Hcl 100 Mg Tablet) 100 mg PO BEDTIME [facility] Last Admin: 03/07/24 21:34 Dose: 100 mg Documented By: JOSE Vitamin D (Cholecalciferol (Vitamin D3) 25 Mcg Tablet) 50 mcg PO DAILY [facility] Last Admin: 03/08/24 09:53 Dose: 50 mcg Documented By: BITA Labs 03/05/24 06:52 03/07/24 05:15 Labs: Laboratory Results - last 24 hr 03/07/24 03/07/24 03/08/24 16:13 19:49 07:35 POC Glucose 90 133 H 89 03/08/24 11:21 POC Glucose 244 H Assessment and Plan (1) Acute pancreatitis: Status: Acute Plan 73 y/o woman admitted with: Acute pancreatitis without necrosis, pt has 2 of 3 criteria: Abdominal pain consistent with disease and findings on abdominal imaging. Lipase is normal. Tg normal ,IgG subclasses pending Gi eval noted -cea and mri added -due to unclear etiology of pancreatitis cea: 4 , Ca19.9 pending abd pain somewhat improivng mri abd pending foe question of pancreatic malignancy ,IV fluids. Pain control with Dilaudid IV. also added trial of diet Gi following Type 2 diabetes mellitus. fs with coverage -avoid coverage below 200 mg/dl. Hyperlipidemia. Continue statin. Essential hypertension. Continue losartan. COPD/lung disease. Continue home inhalers. On Ofev. GERD. Continue PPI. DVT prophylaxis: Lovenox ongoing need for hospitalization - acute pancreatitis treatment with IV pain meds, and IV fluids, trial of po ,as well as workup for pancreatitis ,Gi followup/mri as above. Quality Stroke Does the patient have a stroke diagnosis?: No VTE Prior VTE?: No VTE Risk Level:: Medical - moderate - high VTE Device Contraindication: Treatment Not Indicated VTE Drug Contraindication: N/A - Med Ordered
[2024-03-08 15:18] VITALS: BP 152/68; PULSE 61; RESP 20; TEMP 37; O2SAT 96
[2024-03-08 15:34] LABS: Immunoglobulin G Subclass 1 582 mg/dL (382-929); Immunoglobulin G Subclass 2 210 mg/dL (241-700); Immunoglobulin G Subclass 3 15 mg/dL (22-178); Immunoglobulin G Subclass 4 2.3 mg/dL (4-86); Immunoglobulin G Total 892 mg/dL (600-1540)
[2024-03-08 16:26] LABS: Glucose, Whole Blood 168 mg/dL (60-115)
--- NOTE | 2024-03-08 16:57 | PC.NURSE ---
Continue to wait for MRI results to be read prior to patient being discharged home.
[2024-03-08 19:57] VITALS: BP 141/64; PULSE 61; RESP 20; TEMP 37.1; O2SAT 98
[2024-03-08] MEDS: Atorvastatin Calcium 40 MG TABLET PO (21:01)
[2024-03-08] MEDS: Melatonin 3 MG TABLET 9 MG PO (21:01)
[2024-03-08] MEDS: traZODone HCL 100 MG TABLET PO (21:01)
[2024-03-08 21:05] LABS: Glucose, Whole Blood 129 mg/dL (60-115)
[2024-03-08 23:23] VITALS: BP 118/58; PULSE 55; RESP 18; TEMP 36.8; O2SAT 95
[2024-03-09 03:26] VITALS: BP 122/60; PULSE 57; RESP 18; TEMP 36.9; O2SAT 94
[2024-03-09 07:18] VITALS: BP 156/73; PULSE 60; RESP 16; TEMP 36.8; O2SAT 98
[2024-03-09 07:21] LABS: Glucose, Whole Blood 115 mg/dL (60-115)
--- NOTE | 2024-03-09 07:51 | P.PNIM_ITS ---
Subjective Subjective Date of Service: 03/09/24 Interval History: f/u acute pancreatitis feeling better Physical Exam 2 Vital Signs: Vital Signs: Last Vital Signs Temp 98.2 F 03/09/24 07:18 Pulse 60 03/09/24 07:18 Resp 16 03/09/24 07:18 BP 156/73 H 03/09/24 07:18 Pulse Ox 98 03/09/24 07:18 O2 Del Method Room Air 03/09/24 07:18 BMI result Body Mass Index 31.4 Const: Other: General: AO X 3, no acute distress Resp: CTA bilateral CVS: S1,S2,RRR GI: +BS, NT, no distention Skin: No rash Neuro: motor grossly intact Psych: appropriate affect Objective Data Active Medications Acetaminophen (Acetaminophen 325 Mg Tablet) 975 mg PO Q6H PRN PRN Reason: Pain, Mild (Pain Scale 1-3), fever or headache Last Admin: 03/06/24 19:59 Dose: 975 mg Documented By: SCOTT Albuterol Sulfate (Albuterol Sulfate 90 Mcg 8 Gm Inhaler) 2 puff INHALE Q4H PRN PRN Reason: Shortness Of Breath Or Wheezing Amlodipine Besylate (Amlodipine Besylate 10 Mg Tablet) 10 mg PO DAILY [facility]; Protocol Last Admin: 03/08/24 09:53 Dose: 10 mg Documented By: BITA Lipase/Protease/Amylase (Lipase/Prot/Amylase 24/76/120k 1 Cap Capsule.) 2 cap PO BID [facility] Last Admin: 03/08/24 21:01 Dose: 2 cap Documented By: JOSE Aspirin (Aspirin Enteric Coated 81 Mg Tablet.) 81 mg PO DAILY [facility] Last Admin: 03/08/24 09:54 Dose: 81 mg Documented By: BITA Atorvastatin Calcium (Atorvastatin Calcium 40 Mg Tablet) 40 mg PO BEDTIME [facility] Last Admin: 03/08/24 21:01 Dose: 40 mg Documented By: JOSE Calcium Carbonate (Calcium Carbonate 750 Mg Tab.Chew) 750 mg PO Q4H PRN PRN Reason: Heartburn Cyanocobalamin (Cyanocobalamin (Vitamin B-12) 1,000 Mcg Tablet) 1,000 mcg PO DAILY [facility] Last Admin: 03/08/24 09:54 Dose: 1,000 mcg Documented By: BITA Enoxaparin Sodium (Enoxaparin Sodium 40 Mg/0.4 Ml Syringe) 40 mg SUBCUT Q24H [facility] Last Admin: 03/08/24 08:44 Dose: Not Given Documented By: BITA Non-Admin Reason: Patient Refused Fluticasone/Vilanterol (Fluticasone/Vilanterol 200/25 Blst.W.Dev) 1 puff INHALE RDAILY PRN PRN Reason: Shortness Of Breath Or Wheezing Furosemide (Furosemide 20 Mg Tablet) 20 mg PO DAILY PRN; Protocol PRN Reason: edema Gabapentin (Gabapentin 100 Mg Capsule) 200 mg PO BID [facility] Last Admin: 03/08/24 21:01 Dose: 200 mg Documented By: JOSE Glucose (Glucose Gel 15 Gm Gel..Gram.) 15 gm PO Q15M PRN; Protocol PRN Reason: per Hypoglycemia Standing Ord. Dextrose (D10) 250 mls @ 750 mls/hr IV Q15M PRN; Protocol PRN Reason: per Hypoglycemia Standing Ord. Insulin Human Lispro (Insulin Lispro 100 Unit/Ml 3 Ml Vial) 0 unit SUBCUT QIDACHS [facility]; Protocol Last Admin: 03/08/24 21:10 Dose: Not Given Documented By: JOSE Non-Admin Reason: No Insulin Coverage Losartan Potassium (Losartan Potassium 50 Mg Tablet) 100 mg PO DAILY [facility]; Protocol Last Admin: 03/08/24 09:53 Dose: 100 mg Documented By: BITA Melatonin (Melatonin 3 Mg Tablet) 9 mg PO BEDTIME [facility] Last Admin: 03/08/24 21:01 Dose: 9 mg Documented By: JOSE Metoprolol Succinate (Metoprolol Succinate Er 50 Mg Tab.Er.24h) 150 mg PO DAILY [facility]; Protocol Last Admin: 03/08/24 09:58 Dose: 150 mg Documented By: BITA Mirabegron (Mirabegron 25 Mg Tab.Er.24h) 25 mg PO DAILY [facility] Last Admin: 03/08/24 09:53 Dose: 25 mg Documented By: BITA Mycophenolate Mofetil (Mycophenolate Mofetil 250 Mg Capsule) 1,000 mg PO BID [facility] Last Admin: 03/08/24 21:01 Dose: 1,000 mg Documented By: JOSE Pt Own (Nintedanib [ Ofev] 100 Mg Capsule ) 100 mg PO Q12H [facility] Last Admin: 03/08/24 18:36 Dose: 100 mg Documented By: BITA Ondansetron HCl (Ondansetron Hcl 4 Mg/2 Ml Vial) 4 mg IVPUSH Q6H PRN PRN Reason: Nausea and Vomiting Last Admin: 03/06/24 10:57 Dose: 4 mg Documented By: NANY Oxycodone HCl (Oxycodone Hcl Immed Release 5 Mg Tablet) 5 mg PO TID PRN PRN Reason: Pain Last Admin: 03/05/24 13:16 Dose: 5 mg Documented By: JILLIAN Simethicone (Simethicone 80 Mg Tab.Chew) 160 mg PO BID [facility] Last Admin: 03/08/24 21:01 Dose: 160 mg Documented By: JOSE Sodium Chloride (0.9 % Sodium Chloride Flush 3 Ml Syringe) 3 ml IVFLUSH QSHIFT [facility] Last Admin: 03/08/24 21:10 Dose: 3 ml Documented By: JOSE Sucralfate (Sucralfate 1 Gm Tablet) 2 gm PO DAILY [facility] Last Admin: 03/08/24 09:53 Dose: 2 gm Documented By: BITA Trazodone HCl (Trazodone Hcl 100 Mg Tablet) 100 mg PO BEDTIME [facility] Last Admin: 03/08/24 21:01 Dose: 100 mg Documented By: JOSE Vitamin D (Cholecalciferol (Vitamin D3) 25 Mcg Tablet) 50 mcg PO DAILY [facility] Last Admin: 03/08/24 09:53 Dose: 50 mcg Documented By: BITA Labs 03/05/24 06:52 03/07/24 05:15 Labs: Laboratory Results - last 24 hr 03/06/24 03/08/24 03/08/24 08:22 11:21 16:15 POC Glucose 244 H 168 H IgG Total 892 IgG Subclass 1 582 IgG Subclass 2 210 L IgG Subclass 3 15 L IgG Subclass 4 2.3 L 03/08/24 03/09/24 20:02 07:17 POC Glucose 129 H 115 IgG Total IgG Subclass 1 IgG Subclass 2 IgG Subclass 3 IgG Subclass 4 Assessment and Plan (1) Acute pancreatitis: Status: Acute Plan 73 y/o woman admitted with: Acute pancreatitis without necrosis, unclear etiology Lipase is normal. Tg normal ,IgG subclasses pending CEA 4, MRI result pending advance diet as tomasa gi following pain meds with dilaudid on regular diet Type 2 diabetes mellitus. fs with coverage -avoid coverage below 200 mg/dl. Hyperlipidemia. Continue statin. Essential hypertension. Continue losartan. COPD/lung disease. Continue home inhalers. On Ofev. GERD. Continue PPI. DVT prophylaxis: Lovenox ongoing need for hospitalization - acute pancreatitis treatment with IV pain meds, and IV fluids, trial of po ,as well as workup for pancreatitis ,Gi followup/mri as above. Quality Stroke Does the patient have a stroke diagnosis?: No VTE Prior VTE?: No VTE Risk Level:: Medical - moderate - high VTE Device Contraindication: Treatment Not Indicated VTE Drug Contraindication: N/A - Med Ordered
[2024-03-09] MEDS: NINTEDANIB 100 MG 100 EACH PO (08:25)
[2024-03-09] MEDS: 0.9 % Sodium Chloride Flush 3 ML SYRINGE IVFLUSH (08:26)
[2024-03-09] MEDS: Simethicone 80 MG TAB.CHEW 160 MG PO (08:31)
[2024-03-09] MEDS: Losartan Potassium 50 MG TABLET 100 MG PO (08:31)
[2024-03-09] MEDS: Gabapentin 100 MG CAPSULE 200 MG PO (08:32)
[2024-03-09] MEDS: mycophenolate mofetiL 250 MG CAPSULE 1000 MG PO (08:33)
[2024-03-09] MEDS: Sucralfate 1 GM TABLET 2 GM PO (08:34)
[2024-03-09] MEDS: Cyanocobalamin (Vitamin B-12) 1,000 MCG TABLET 1000 MCG PO (08:34)
[2024-03-09] MEDS: amLODIPine Besylate 10 MG TABLET PO (08:35)
[2024-03-09] MEDS: Metoprolol Succinate ER 50 MG TAB.ER.24H 150 MG PO (08:35)
[2024-03-09] MEDS: Aspirin Enteric Coated 81 MG TABLET.DR PO (08:36)
[2024-03-09] MEDS: Mirabegron 25 MG TAB.ER.24H PO (10:57)
[2024-03-09 11:22] LABS: Glucose, Whole Blood 238 mg/dL (60-115)
[2024-03-09] MEDS: Insulin Lispro 100 UNIT/ML 3 ML VIAL SUBCUT (11:58)
--- NOTE | 2024-03-09 13:16 | P.DS_ITS ---
DS: Providers Provider Date of Service: 03/09/24 Date of admission: 03/05/24 03:19 Primary care physician: Aarti Thacker MD Consults: 03/06/24 08:14 Consult to Gastroenterology Routine Consulting Provider: [facility] Reason for consultation: Pancreatitis unclear etiology Has provider been notified: No DS: Diagnosis Discharge Diagnosis (1) Acute pancreatitis: Status: Acute DS: Summary Hospital Course Hospital Course: admission hpi Chief Complaint: Abdominal pain Snehal Bob is a 73 years old woman with past medical history significant for GERD, IBS, type 2 diabetes mellitus, COPD essential hypertension and hyperlipidemia presents to the emergency department complaining of left lower quadrant pain that started Friday night associated with nausea. She described the pain as a colicky and radiates to the left mid back. Intensity is 10/10. Associated symptoms she reported nausea. Denied vomiting, constipation, diarrhea, fevers or chills. Last bowel movement was yesterday and was normal. Her last meal before symptoms was a piece of pizza. She denied any acute cardiopulmonary or genitourinary symptoms. She mentioned that she has had had this pain before but the cause has not been identified. She denied alcohol abuse. Surgical history significant for cholecystectomy and TAHBSO. It looked like she takes Creon for IBS In the ED, she was found to have stable vital signs. Blood workup showed mild leukocytosis of 11.2. Hemoglobin and platelets are normal. There are no electrolyte imbalances. Renal function is normal. LFTs are unremarkable except for slight elevation of AST. Lipase is normal, 14. Troponin is less than 2.7. Urinalysis showed no evidence of UTI. Abdomen and pelvis CT scan showed finding consistent with acute interstitial edematous pancreatitis. ED tx: Toradol 30 mg IV, fentanyl 50 mcg, Zofran 4 mg IV Hospital course: Acute pancreatitis without necrosis, unclear etiology Lipase is normal. Tg normal ,IgG subclasses pending CEA 4, carcinoambryonic ag is pending MRI show 1. Mild edema involving the distal body of the pancreas with surrounding fat stranding again concerning for acute pancreatitis in the appropriate clinical context. No suspicious pancreatic mass. No pancreatic ductal dilation. If there is persistent clinical concern for an underlying mass, follow-up imaging can be considered after resolution of acute episode of pancreatitis. 2. Status post cholecystectomy. Stable chronic dilatation of the common bile duct. No findings to suggest choledocholithiasis. 3. Trace bilateral pleural effusions. now tolerating regularid to follow up with Dr. Irving Type 2 diabetes mellitus. fs with coverage -avoid coverage below 200 mg/dl. Hyperlipidemia. Continue statin. Essential hypertension. Continue losartan. COPD/lung disease. Continue home inhalers. On Ofev. GERD. Continue PPI. Quality: Safe Use of Opioids Does Pt have an Active Cancer Diagnosis on the Problem List?: No Quality: Stroke Does the patient have a stroke diagnosis?: No Physical Exam Vital Signs: Vital Signs: Last Vital Signs Temp 98.2 F 03/09/24 07:18 Pulse 60 03/09/24 07:18 Resp 16 03/09/24 07:18 BP 156/73 H 03/09/24 07:18 Pulse Ox 98 03/09/24 07:18 O2 Del Method Room Air 03/09/24 07:18 BMI result Body Mass Index 31.4 Const: Other: General: AO X 3, no acute distress Resp: CTA bilateral CVS: S1,S2,RRR GI: +BS, NT, no distention Skin: No rash Neuro: motor grossly intact Psych: appropriate affect DS: Data Data Completed and Pending Labs on day of discharge: Laboratory Results - last 24 hr 03/06/24 03/08/24 03/08/24 08:22 16:15 20:02 POC Glucose 168 H 129 H IgG Total 892 IgG Subclass 1 582 IgG Subclass 2 210 L IgG Subclass 3 15 L IgG Subclass 4 2.3 L 03/09/24 03/09/24 07:17 11:19 POC Glucose 115 238 H IgG Total IgG Subclass 1 IgG Subclass 2 IgG Subclass 3 IgG Subclass 4 Discharge Plan Discharge Anticipated Discharge Date/Time: 03/09/24 13:50 Patient Disposition: Home, Self-Care Discharge Diagnosis: acute pancreatitis Referrals: Aarti Thacker MD [Primary Care Provider] - 1 Week Pooja Irving MD [Physician] - 1 Week Discharge Medications: Continued mycophenolate mofetil 500 mg tablet 1,000 mg PO BID 30 Days Qty: 120 6RF trazodone 50 mg tablet 100 mg PO BEDTIME Qty: 60 11RF Januvia 50 mg tablet 50 mg PO DAILY budesonide-formoterol [Symbicort] 160-4.5 mcg/actuation HFA aerosol inhaler 2 puff INHALATION BID PRN (Reason: Shortness Of Breath Or Wheezing) cholecalciferol (vitamin D3) [Vitamin D3] 50 mcg (2,000 unit) capsule 50 mcg PO DAILY Creon 24,000-76,000 -120,000 unit capsule,delayed release(DR/EC) 2 cap PO BID mirabegron [Myrbetriq] 25 mg tablet extended release 24 hr 25 mg PO DAILY Ofev 100 mg capsule 100 mg PO Q12H omeprazole 20 mg capsule,delayed release(DR/EC) 20 mg PO DAILY@0630 albuterol sulfate [Ventolin HFA] 90 mcg/actuation Hfa Aerosol Inhaler 2 inh INHALATION Q4-6H PRN (Reason: Shortness Of Breath Or Wheezing) gabapentin 100 mg capsule 200 mg PO BID sucralfate 1 gram tablet 2 g PO DAILY losartan 100 mg tablet 100 mg PO DAILY cyanocobalamin (vitamin B-12) 1,000 mcg tablet 1,000 mcg PO DAILY atorvastatin 40 mg tablet 40 mg PO BEDTIME aspirin 81 mg tablet,delayed release (DR/EC) 81 mg PO DAILY amlodipine 10 mg tablet 10 mg PO DAILY melatonin 5 mg tablet 10 mg PO BEDTIME metformin 500 mg tablet extended release 24 hr 1,000 mg PO BID (DME) blood sugar diagnostic Strip See Rx Instructions Not Applicable BID Qty: 10 Rx Instructions: As directed (DME) lancets 33 gauge misc See Rx Instructions .ROUTE .MEDSUPPLY Qty: 100 Rx Instructions: As directed metoprolol succinate 100 mg tablet extended release 24 hr 150 mg PO DAILY glipizide 5 mg tablet extended release 24hr 5 mg PO DAILY furosemide [Lasix] 20 mg tablet 20 mg PO DAILY PRN (Reason: edema) 30 Days Qty: 14 0RF simethicone 180 mg capsule 180 mg PO BID Qty: 180 1RF oxycodone-acetaminophen 5-325 mg tablet 1 tab PO TID PRN (Reason: Pain) Discharge Orders: Discharge Order (Routine); Ordered 03/08/24 Ordered By: Keyur Alfred Diet: Advance to usual diet Activity on Discharge: As tolerated Stand Alone Forms: Patient Portal Discharge page Print Language: Bur[place]ian Care Plan Goals: recovery from pancreatitis Health Concerns: pancreatitis Plan of Treatment: avoid fatty food follow up with DR. Irving Assessment: see above
--- NOTE | 2024-03-09 15:33 | MHC.CM.PN ---
IMM 03/09/24 Patient is discharged today to home. PASTEURIZER services will resume. Patient arranged for a ride home.
[2024-03-10 11:03] LABS: Carbohydrate Antigen 19-9 <3 U/mL (<34)
== END 2024-03-09 14:55 | disposition home or self-care (01) | DRG 440 ==
LOC: HO.ED 14:32 → HO.EDOVER 03-05 03:25 → HO.S3 03-05 11:21
PROVIDERS: Internal Medicine; Internal Medicine Gastroenterology; Physician Assistant Medical; Admitting Provider Internal Medicine; Emergency Provider Student in an Organized Health Care Education/Training Program; PCP General Practice; Visit Provider Internal Medicine
DX: K85.90 Acute pancreatitis without necrosis or infection, unspecified (principal); G47.33 Obstructive sleep apnea (adult) (pediatric); E78.5 Hyperlipidemia, unspecified; K21.9 Gastro-esophageal reflux disease without esophagitis; J44.9 Chronic obstructive pulmonary disease, unspecified; I27.21 Secondary pulmonary arterial hypertension; Z79.82 Long term (current) use of aspirin; Z79.84 Long term (current) use of oral hypoglycemic drugs; Z79.899 Other long term (current) drug therapy
CPT/HCPCS: 36415; 71046; 74176; 74183; 80048; 80053; 81003; 82150; 82378; 82784; 82947; 83690; 83735; 84478; 84484; 85025; 86140; 86301; 93005; 99285; A9585; J1171; J1650; J1885; J2060; J2405; J2470; J3010; J7120

== ENCOUNTER → 2024-03-04 12:47 | Outpatient (BNV) | payer OTHER, SELFPAY | PROVIDERS: Admitting Provider Internal Medicine; Emergency Provider Student in an Organized Health Care Education/Training Program; PCP General Practice; Visit Provider Internal Medicine Cardiovascular Disease | DX: R07.9 Chest pain, unspecified (principal) | CPT/HCPCS: 93010 ==

== ENCOUNTER → 2024-03-04 13:22 | Outpatient (BNV) | payer OTHER, SELFPAY | PROVIDERS: Emergency Provider Student in an Organized Health Care Education/Training Program; PCP General Practice; Visit Provider Radiology Diagnostic Radiology | DX: R07.9 Chest pain, unspecified (principal) | CPT/HCPCS: 71046 ==

== ENCOUNTER → 2024-03-05 03:19 | Outpatient (BNV) | payer OTHER, SELFPAY | PROVIDERS: Admitting Provider Internal Medicine; Emergency Provider Student in an Organized Health Care Education/Training Program; PCP General Practice; Visit Provider Internal Medicine Gastroenterology | DX: K85.90 Acute pancreatitis without necrosis or infection, unspecified (principal); K21.9 Gastro-esophageal reflux disease without esophagitis; R10.12 Left upper quadrant pain | CPT/HCPCS: 99499 ==

== ENCOUNTER → 2024-03-05 03:19 | Outpatient (BNV) | payer OTHER, SELFPAY | PROVIDERS: Admitting Provider Internal Medicine; Emergency Provider Student in an Organized Health Care Education/Training Program; PCP General Practice; Visit Provider Internal Medicine | DX: K85.90 Acute pancreatitis without necrosis or infection, unspecified (principal) | CPT/HCPCS: 99223; 99231; 99232; 99499 ==

== ENCOUNTER 2024-03-11 10:31 | Outpatient (AMB) | payer OTHER, SELFPAY ==
--- NOTE | 2024-03-11 11:04 | MHC.OFFVIS ---
Intake Visit Reasons: OV - T-spine pain Intake Note: Snehal 73 yr old urdu speaking female presents today for her follow up visit for her lumbar pain. States she is doing well, she has good and bad days. She continues to do her home exercise but not frequently. She mentioned she had a fall about 1 month, fell and landed on her right side. States she did not seek medical attention and is not having pain in her right knee. Stream Control Officer Required: Yes Stream Control Officer Services: Stream Control Officer Present Allergies morphine [MORPHINE] Allergy (Mild, Verified 03/11/24 11:09) NAUSEA, VOMITING, DIZZINESS, HOT FLASHES Medication List - Last Reconciled 03/11/24 by Katie Diaz MD albuterol sulfate 90 mcg/actuation (Ventolin HFA) 2 inhalations inhalation Q4-6H PRN amlodipine 10 mg PO DAILY aspirin 81 mg PO DAILY atorvastatin 40 mg PO BEDTIME blood sugar diagnostic As directed budesonide-formoterol 160-4.5 mcg/actuation (Symbicort) 2 puffs inhalation BID PRN cholecalciferol (vitamin D3) (Vitamin D3) 50 mcg PO DAILY cyanocobalamin (vitamin B-12) 1,000 mcg PO DAILY furosemide (Lasix) 20 mg PO DAILY PRN 30 days gabapentin 200 mg PO BID glipizide ER 5 mg PO DAILY lancets As directed [id number] 24,000-76,000 -120,000 unit (Creon) 2 caps PO BID losartan 100 mg PO DAILY melatonin 10 mg PO BEDTIME metformin ER 1,000 mg PO BID metoprolol succinate ER 150 mg PO DAILY mirabegron ER (Myrbetriq) 25 mg PO DAILY mycophenolate mofetil 1,000 mg (2 x 500 mg) PO BID 30 days nintedanib (Ofev) 100 mg PO Q12H omeprazole 20 mg PO DAILY@0630 oxycodone-acetaminophen 5-325 mg 1 tab PO TID PRN simethicone 180 mg PO BID sitagliptin phosphate (Januvia) 50 mg PO DAILY sucralfate 2 grams PO DAILY trazodone 100 mg (2 x 50 mg) PO BEDTIME HPI Comments Details: History of ILD, memory loss, DM. Back pain started earlier this year. She denies inciting injuries. Reports numbness, she has history of DM neuropathy. Denies weakness. On chronic percocet for back pain - she says that she has chronic left sided back pain which is now worse. Apparently, based on records review, she had a thoracic xray which reported possible DISH. RF and ARPIT were negative. Saw that she actually saw Rheumatology Griselda Marcelo in July. She has recently seen Dr. Lange. She has gone to PT since September. MRI done and discussed. She says today she is feeling much better. Then she says pain is daily but better with oxycodone. Sometimes she needs physical assistance with putting her socks, walking. Fell 1 month ago, did not seek medical care. Now having more right sided leg pain since the fall. She was just discharged from hospital, admitted for acute pancreatitis. 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 Renal cyst Left flank pain Thoracic spine pain Abnormal chest x-ray Lower abdominal pain JAREK (obstructive sleep apnea) Colon cancer screening Hepatic steatosis JAREK (obstructive sleep apnea) Bibasilar crackles Dyspnea Chronic restrictive lung disease ILD (interstitial lung disease) Memory loss COPD (chronic obstructive pulmonary disease) OAB (overactive bladder) History of postoperative nausea and vomiting Diabetes Insomnia Pulmonary arterial hypertension Surgical History History of cholecystectomy H/O esophagogastroduodenoscopy History of hernia repair History of colonoscopy Family History Father Hx of diabetes insipidus Mother Hx of diabetes insipidus Social History Household Members: Family Housing: Apartment Do you presently have visiting nurse or other home services: Yes Alcohol intake: never Comment: tp refusing bed alarm Patient Tobacco Use Status: Never used Tobacco Years Smoked: 1yr Second Hand Smoke Exposure: No service: No Current occupational status: retired Physical Exam Constitutional: Patient appears to be in no acute distress, well nourished and well developed. Patient was appropriately conversant and oriented. MSK: No specific abnormalities found on inspection of the spine and all extremities. Lumbar ROM was full. No point tenderness. Neurological: Lawson?s negative bilaterally. Babinski was down going bilaterally. Clonus was negative. Gait is antalgic. Results Reviewed Results Reviewed: Ordering Physician: Katie Charles Date of Service: 11/04/23 Procedure(s): MR lumbar spine wo con Accession Number(s): [id number] cc: Aarti Thacker; Katie Charles~ EXAMINATION: MR LUMBAR SPINE WITHOUT CONTRAST CLINICAL INFORMATION: Ankylosing hyperostosis. COMPARISON: Plain films of the lumbar spine 09/04/2023. TECHNIQUE: MRI of the lumbar spine was obtained without contrast. FINDINGS: VERTEBRAL BODIES AND PARASPINAL STRUCTURES: There is a mild grade 1 anterolisthesis of L4 on L5. There is disc desiccation at the levels of L3-L4 and L4-L5. Intervertebral disc heights are maintained. The vertebral bodies have normal height and contour, and no fractures are demonstrated. There are mild degenerative endplate signal changes anteriorly at L3-L4 and at L5-S1 towards the left. Overall, marrow signal is homogenous. The visualized retroperitoneal and pelvic structures are unremarkable. CONUS MEDULLARIS AND CAUDA EQUINA: Normal, terminating at the level of L1. The lower thoracic spinal cord appears normal. The cauda equina nerve roots and filum terminale appear normal. SPINAL LEVELS: L1-L2: There is mild bilateral facet arthropathy. There is a shallow left-sided disc protrusion without significant mass effect and there is no central stenosis. The neural foramina are patent bilaterally. L2-L3: There is mild bilateral facet arthropathy. Disc contour is normal. There is no central stenosis or foraminal narrowing. L3-L4: There is mild to moderate bilateral facet arthropathy. There is a small left-sided disc protrusion without mass effect on the thecal sac and there is no central stenosis. The neural foramina are patent bilaterally. L4-L5: There is moderate to severe bilateral facet arthropathy with ligamenta flava hypertrophy and small facet joint effusions. There is mild unroofing of the disc as a result of the anterolisthesis and is pressing the ventral thecal sac. There is no central stenosis. There is a left foraminal disc protrusion impinging on the exiting left L4 nerve root. L5-S1: There is moderate right and mild left facet arthropathy. There is a shallow posterior disc protrusion which mildly effaces the ventral thecal sac with no central stenosis. There are small inferior foraminal protrusions without exiting nerve root impingement. MR/MR lumbar spine wo con IMPRESSION: 1. At L4-L5 there is moderate to severe facet arthropathy and there is a grade 1 anterolisthesis. There is no central stenosis. There is a left foraminal disc protrusion impinging on the exiting left L4 nerve root. 2. At L5-S1 there is facet arthropathy and there is a shallow posterior disc protrusion. There is no central stenosis. There are small inferior foraminal protrusions without exiting nerve root impingement. 3. Milder spondylitic and facet arthropathic changes are demonstrated at other levels as described above. Electronically signed by: Manuel Rowe MD 11/29/2023 03:08 PM EDT RP Assessment & Plan Assessment & Plan (1) Lumbar radiculopathy: Code(s): M54.16 - Radiculopathy, lumbar region Category: Medical (2) Lumbar disc herniation: Code(s): M51.26 - Other intervertebral disc displacement, lumbar region Category: Medical (3) Lumbar facet arthropathy: Code(s): M47.816 - Spondylosis without myelopathy or radiculopathy, lumbar region Category: Medical Plan Chronic back. No point tenderness today. Offered referral to PT or injection, patient defers. Patient to continue pain medications under PCP. Assessment and plan discussed with patient, and patient was agreeable. All questions were answered thoroughly. Follow up as needed. Katie Diaz MD, SULEMA Board Certified, [place] [employer] and [employer] (ABPMR) Board Certified, [place] [employer] Electro[employer] (ABEM) Coding Level of Care Code Est Pt Level 3 (71309) Diagnoses Lumbar radiculopathy M54.16 Lumbar disc herniation M51.26 Lumbar facet arthropathy M47.816
== END 2024-03-11 11:31 | disposition home or self-care (01) ==
PROVIDERS: PCP General Practice; Visit Provider Physical Medicine & Rehabilitation
DX: M54.16 Radiculopathy, lumbar region (principal); M51.26 Other intervertebral disc displacement, lumbar region; M47.816 Spondylosis without myelopathy or radiculopathy, lumbar region
CPT/HCPCS: 99213

== ENCOUNTER → 2024-03-11 10:31 | Outpatient (BNVA) | payer OTHER, SELFPAY | PROVIDERS: PCP General Practice; Visit Provider Physical Medicine & Rehabilitation | DX: M47.26 Other spondylosis with radiculopathy, lumbar region (principal); M51.26 Other intervertebral disc displacement, lumbar region; E11.40 Type 2 diabetes mellitus with diabetic neuropathy, unspecified; Z79.891 Long term (current) use of opiate analgesic | CPT/HCPCS: 99212 ==

== ENCOUNTER 2024-03-22 14:14 | Outpatient (AMB) | payer OTHER, SELFPAY ==
--- NOTE | 2024-03-22 14:39 | A.OFFVIS_ITS ---
Vital Signs 03/22/24 14:40 Height 5 ft Weight 158 lb 11.725 oz BMI 31.0 BP 102/60 Blood Pressure Location Lt brachial Position Sitting Pulse 83 Pulse Source Pulse Oximeter Pulse Oximetry (%) 96 Oxygen Delivery Method Room Air Intake Visit Reasons: Pulmonary Hypertension/PFT Follow Up Allergies morphine [MORPHINE] Allergy (Mild, Verified 03/22/24 14:43) NAUSEA, VOMITING, DIZZINESS, HOT FLASHES HPI Comments Details: The patient is a 73-year-old woman with known pulmonary hypertension. She also has obstructive airway disease and has been on short-acting beta agonist. She has been having increasing shortness of breath. And she has been using her rescue inhaler with partial response. At this point will start her on a maintenance inhaler. In addition to that in view of her pulmonary hypertension will go ahead and request an overnight oximetry to assess her for nocturnal hypoxia. She does have any evidence of any nocturnal hypoxia will be imperative to start her on oxygen supplementation to treat her underlying pulmonary hypertension. 04/29/2022 the patient is here for a pulmonary follow-up visit. Recently she went to the ER because of worsening respiratory symptoms and cough. There she had a chest x-ray without any significant changes show she does have the reticulonodular opacities her interstitial lung disease. Since we last spoke the patient was supposed to undergo blood work and she has not done as of yet. In addition to that the patient did not feel healthy enough to have a sleep study. Therefore she did not have that either. The patient is frustrated that she is no better. Although she also did not follow through with the recommendations. She was provided with prednisone in the hospital and did help her symptoms. She has completed the course at this time. She also finished a course of antibiotics. Again, she has significant interstitial lung disease. Her total lung capacity is decreased consistent with chronic restrictive lung disease from the interstitial lung disease. The etiologies still is unclear. Patient understands the blood work to help try to clear up the etiology of the fibrosis. Indeed, if this fibrosis is progressive then anti fibrotic agents will be warranted. Since the patient is developing significant cough and shortness of breath we did taken for brief walking oximetry in the patient was able to maintain a pulse ox in the low 90s. Therefore the patient does not qualify for oxygen. based on her ongoing symptoms will go ahead and put her on a small dose of prednisone to see if we can stabilize her condition as we move further. The patient understands the importance of the blood work that she needs to get prior to the next visit. In addition to that we briefly spoke about lung biopsies. The patient is reluctant to undergo any invasive or semi- invasive interventions at this time. 05/20/2022 the patient is here for a pulmonary follow-up visit. Overall the patient has been feeling a little better. She is tolerating the prednisone. We did review all her blood work. No evidence of any connective tissue conditions or hyper sensitivity reaction to we can identify. Therefore, no clear etiology for her interstitial lung disease. We talked about diagnostic interventions which is biopsies. However, explained to the patient that this may not necessarily change the overall treatment plan. Therefore will continue to assess the response to prednisone. I am hopeful that she response. we can better assess this will be repeating her imaging studies. In the meantime she continues to cough. The benzo night work great for her cough. Although the not covered. We did look for different alternatives including going with good Rx to see if she can get him on a lower walker. These probably be the best option. Also, we did talk about the if there is any evidence of any progression of her pulmonary fibrosis to suggest progressive idiopathic pulmonary fibrosis then we can consider antifibrotic therapies at that time. 06/18/2022 the patient is here for a pulmonary follow-up visit. The patient overall is feeling better. She is is bonding well to the prednisone. Only taking 10 mg. Her prescription for the Benzonate is with still that [employer] and she did take a very low walker which she is happy about. Her sugars are reasonable staying in the normal range. We did talk about if there is any worsening of the interstitial lung disease suggesting progressive pulmonary fibrosis then we will start Ofev. While give her some reading material in order for her to read up on it. I do believe that she will benefit from the medication if there is any evidence of progression of disease. She does continue to have issues with her sleep. She does wake up tired with headaches. Will perform an overnight oximetry to make sure that she does not need oxygen supplementation. In the meantime she continues with respiratory therapy with good effect. She does continue the Bentson eyes again with very good response improving her cough overall. 07/29/2022 the patient is here for pulmonary follow-up visit. She is feeling a little better on the prednisone and also continues on the Bentson eyes with good effect. Her cough is overall better. She still has some dyspnea on exertion with activity which is mild severity. We did review her last CT scan of the chest that she had in June 2022 demonstrating interval worsening of the interstitial lung disease as well as evidence of scarring and some evidence of ground-glass opacities. She therefore, based on the worsening disease I am concerned that she continued to have progressive symptoms. At the basilar progressive interstitial lung disease with pulmonary fibrosis I do believe that she will be a good candidate for Ofev. Will go ahead and request a prior approval from her insurance company. She is in the meantime she continues on the prednisone. She is concerned about the side effects of prednisone but I do believe that she needs additional anti-inflammatory effect due to her ongoing symptoms and findings. Therefore, will go ahead and start him on CellCept. We did talk about potential biopsy. The patient is going to think about it. Will try these medication changes at this time. However, if the patient is no better or there is any worsening of disease then will have to further consider a biopsy. If the patient does need a biopsy and wedge biopsy will be passed 10/29/2022 the patient is here for pulmonary follow-up visit. She continues to have cough and also shortness of breath with activity. I did had sent her prescription for mycophenolate when she was last here. She did bulk picker the medication but she has not taking it as of yet. He has been now about 3 months. Explained to her that it appears that she has interval worsening of her interstitial lung disease. She also has diabetes was difficult to increase her prednisone. Mycophenolate will be a very good option in order to decrease the inflammation and hopefully decrease the risk of further scarring. The patient also reviewed the CT scan with me. I did show her the CT scan she had back in 2021 and a CAT scan of 2022 demonstrating worsening of disease. The patient will start the mycophenolate at this time. I did write it down for her so she can start with 1 daily and then increase it to twice a day. In November she is going to come in and get x-rays and also blood work and will follow-up with her at that time. Will plan to repeat her PFTs sometime in February. Also we talked about Ofev. This is a medication we have sent to the pharmacy. We did send a script but not clear what happened as far as the process. I did reach out to our staff in the office to try to get an update of what occurred with the medication Request. Again I reviewed the blood work that we did with her. No evidence of any connective tissue disease. No evidence of any hypersensitivity pneumonitis. Her scarring is primarily at the base suggesting the possibility of UIP versus I fibrotic NSIP. Will see her response to therapy. If the patient does not have any significant response to the therapy then will consider surgical biopsy. 12/20/2022 the patient is here for a pulmonary follow-up visit. The patient continues to be about the same. She does have the frequent constant cough. It is nonproductive in nature. Responds well to the current medications. She also has shortness of breath with activity. Does not feel like she is getting any worse from the last visit. The patient did have a repeat chest x-ray demonstrating some interval worsening though. Therefore she understands that this interstitial lung disease may indeed be progressive which is a concern. She has been on mycophenolate although she is only taking 1 tablet daily with which she was supposed to be taking more. Therefore I did write down the instructions on how she is to take the mycophenolate. She is going to titrate up to hopefully 2 tablets b.i.d.. Blood work was reassuring without any evidence of any organ toxicity. When she reaches she is the 2 g a day does she will go ahead and have additional blood work. When she is on 2 g the patient will also cut down on the prednisone. We did talk about Ofev has good option for her specially if indeed this appears to be a per aggressive interstitial fibrosis. Therefore, will see how she responds to this current increase medications she will have a repeat chest x-ray and if there is any worsening of symptoms and or imaging studies then will go ahead and start Ofev. 03/18/2023 the patient is here for a pulmonary follow-up visit. Overall the patient has been doing well. Her cough is overall better. She still has dyspnea on exertion mild in severity. She continues to take the prednisone 10 mg daily and also was able to increase the mycophenolate now taking 1000 mg in the morning and 500 mg at nighttime. She did have a chest x-ray which I personally reviewed. I will see any significant changes although which still waiting for the final read. The patient has not started the also bibasilar yet. I am unsure if it was not approved by the insurance. At this point will do is we will go ahead and maximize her mycophenolate to 1000 mg twice a day and also she can decrease the prednisone some because of her history of diabetes. Will plan to repeat a CT scan in June closer to her last CT scan to see if there is any progression of the interstitial lung disease. If there is any progression of the eye LD then starting her on Ofev will be very important. If the patient has any worsening symptoms prior to the next visit she will call the office for an earlier assessment. Otherwise will follow-up then. 07/21/2023 the patient is here for a pulmonary follow-up visit. She has been tolerating mycophenolate well. She is now up to 2 g a day. She is off the prednisone altogether which is reassuring. She continues shortness of breath with activities about the same. She is also complaining of left-sided flank discomfort. The etiology discomfort still not clear though is bothersome to her. She did have a CT scan of the chest beginning of the month June 2023 which I personally reviewed with her. She does have the evidence of the reticular changes primarily in the periphery of the bases which is very suspicious for UIP pattern or IPF. She has been on the mycophenolate and seems to be helping. She is off the prednisone which is reassuring. Still an antifibrotic agent will be helpful in decreasing the degree of progression. We did look at previous CT scans from 2019 to 2022 in 2023. Seems to be some slight progression from 2021 to now. Therefore will go ahead and request Ofev at this time. She understands about the side effects. In addition to that she will undergo blood work to make sure she is tolerating the medicine. Send try Lidoderm patch to the affected area regarding the abdominal discomfort. 12/01/2023 the patient is here for a pulmonary follow-up visit. The patient has been doing fairly well with the medications. She is taking 2 g of mycophenolate daily in addition to the Ofev 100 mg daily. Seems to be tolerating well without any significant GI effects. She did have issues with 150 mg dose. In the meantime she continues exercise regularly. She does have shortness of breath with activity but she is usually able to walk for about a now our. Sometimes she has to stop because of more fatigue of her legs. The patient does not use any oxygen which is reassuring. She has not had any imaging studies in June. Will go ahead and plan to repeat her PFTs and chest x-ray within the next 3 months and will review. Hopefully we can decrease her mycophenolate dose some. The patient also will get vaccines. She is going to get her flu and her COVID booster. She knows to stop her mycophenolate several days before and several days after. The patient will also get her RSV vaccine as well she would do the same protocol. She does have a respiratory inhalers. Right now she is stable. 03/22/2024 the patient is here for a pulmonary follow-up visit. Since we last spoke the patient developed severe abdominal discomfort. She was having discomfort before but not as bad. She went to the hospital there she was diagnosed with acute pancreatitis. Although the etiology is not clear. She did have an MRI of the abdomen demonstrating no evidence of any anatomical obstructions to the biliary duct. She is status post cholecystectomy already. Therefore, need to consider other etiologies including medications. She has been Ofev which is did new medication. Will continue for now it can cause hepatitis but no evidence of any significant hepatitis at this time for her. She is also on mycophenolate that is also been shown to cause pancreatitis. Therefore will go ahead and decrease that 1 from 2 g a day to 1 g a day and will can not reassess her condition is here we can decrease it further. For now her abdominal pain is better. Will go ahead and request a repeat blood work in the coming weeks. She is also going to follow-up closely with GI to further address any other etiologies. I did review her CT scan of the abdomen at least the lung cuts we can see that her interstitial lung disease appears to be fairly stable right now. 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 Renal cyst Left flank pain Thoracic spine pain Abnormal chest x-ray Lower abdominal pain JAREK (obstructive sleep apnea) Colon cancer screening Hepatic steatosis JAREK (obstructive sleep apnea) Bibasilar crackles Dyspnea Chronic restrictive lung disease ILD (interstitial lung disease) Memory loss COPD (chronic obstructive pulmonary disease) OAB (overactive bladder) History of postoperative nausea and vomiting Diabetes Insomnia Pulmonary arterial hypertension Surgical History History of cholecystectomy H/O esophagogastroduodenoscopy History of hernia repair History of colonoscopy Family History Father Hx of diabetes insipidus Mother Hx of diabetes insipidus Social History Household Members: Family Housing: Apartment Do you presently have visiting nurse or other home services: Yes Alcohol intake: never Comment: tp refusing bed alarm Patient Tobacco Use Status: Never used Tobacco Years Smoked: 1yr Second Hand Smoke Exposure: No service: No Current occupational status: retired Review of Systems Const Denies fatigue, Denies fever(s), Denies night sweats, Denies poor appetite and Denies weight loss Eyes Details: glasses Reports requires corrective lenses ENT Reports Normal hearing present, Denies dental pain, Denies dysphagia, Denies hearing loss, Denies mouth pain, Denies odynophagia, Denies throat swelling, Denies tongue swelling and Reports other (Dentition adequate) Card Reports dyspnea on exertion Resp Reports cough and Reports dyspnea on exertion GI Reports abdominal pain, Denies melena, Denies bloating, Denies hematochezia, Denies constipation, Denies GI cramping, Denies dysphagia, Denies excessive flatus, Denies early satiety, Denies heartburn, Reports diarrhea, Denies nausea, Denies odynophagia, Denies vomiting and Denies hematemesis Skin/Breast Denies pruritus, Denies lesions, Denies rash and Denies jaundice Neuro Reports Normal hearing present and Denies Abnormal speech present Endo Denies fatigue Aller/Immun Denies throat swelling and Denies tongue swelling Physical Exam Vital Signs: Last Vital Signs Pulse 83 03/22/24 14:40 BP 102/60 03/22/24 14:40 Pulse Ox 96 03/22/24 14:40 Oxygen Delivery Method Room Air 03/22/24 14:40 BMI result Body Mass Index 31.0 Const General: alert HEENT General nose exam: Abnormal external nose present and Nasal discharge present Neck Neck: Yes normal visual inspection, Yes full ROM and Yes no lymphadenopathy Chest Chest palpation & inspection: normal inspection of the chest Resp Auscultation: rales bilateral and diminished lung sounds Cardio Rate: regular rate Rhythm: regular rhythm Heart sounds: S1 normal heart sound present and S2 normal heart sound present GI Palpation (GI): Soft to palpation and nontender Auscultation: normal bowel sounds General: Yes no CVA tenderness Back/Spine/Pelvis Back: no CVA tenderness Skin General skin exam: rashes and/or lesions noted Neuro Cranial nerves: Yes Normal hearing present Speech: No Abnormal speech present Extrem General: No clubbing, No cyanosis and Yes edema Assessment & Plan Assessment & Plan (1) Pulmonary arterial hypertension: Comment: secondary Code(s): I27.21 - Secondary pulmonary arterial hypertension Category: Medical (2) COPD (chronic obstructive pulmonary disease): Code(s): J44.9 - Chronic obstructive pulmonary disease, unspecified Category: Medical Qualifiers: COPD type: chronic bronchitis Chronic bronchitis type: simple Qualified Code(s): J41.0 - Simple chronic bronchitis (3) ILD (interstitial lung disease): Comment: progressively worsening based on CT chest Code(s): J84.9 - Interstitial pulmonary disease, unspecified Category: Medical (4) Chronic restrictive lung disease: Code(s): J98.4 - Other disorders of lung Category: Medical (5) Acute pancreatitis: Code(s): K85.90 - Acute pancreatitis without necrosis or infection, unspecified Category: Medical Qualifiers: Pancreatitis type: unspecified pancreatitis type Acute pancreatitis complication: no infection or necrosis Qualified Code(s): K85.90 - Acute pancreatitis without necrosis or infection, unspecified Plan continue symbicort WILFRIDO as needed decrease cellcept, 2gm/day-->1gm/day continue OFEV cough medication: benzonates, rx with [facility] repeat CT chest to assess progression of disease 06/2024 Sleep with HOB elevated bloodwork F/U 3 months Orders: Orders Liver Panel Today K85.90 - Acute pancreatitis without necrosis or infection, unspecified, R10.12 - Left upper quadrant pain Lipase Today K85.90 - Acute pancreatitis without necrosis or infection, unspecified, R10.12 - Left upper quadrant pain Complete Blood Count Auto Diff Today K85.90 - Acute pancreatitis without necrosis or infection, unspecified, R10.12 - Left upper quadrant pain Basic Metabolic Panel Today K85.90 - Acute pancreatitis without necrosis or in fection, unspecified, R10.12 - Left upper quadrant pain Coding Level of Care Code Est Pt Level 4 (94697) Complex EM visit Add On G2211 Diagnoses Pulmonary arterial hypertension I27.21 Simple chronic bronchitis J41.0 COPD type: chronic bronchitis Chronic bronchitis type: simple ILD (interstitial lung disease) J84.9 Chronic restrictive lung disease J98.4 Acute pancreatitis without infection or necrosis, unspecified pancreatitis type K85.90 Pancreatitis type: unspecified pancreatitis type Acute pancreatitis complication: no infection or necrosis Time Spent (min) 17
[2024-03-22 14:40] VITALS: BP 102/60; PULSE 83; O2SAT 96; BMI 31.0
== END 2024-03-22 15:10 | disposition home or self-care (01) ==
PROVIDERS: PCP General Practice; Visit Provider Hospitalist
DX: I27.21 Secondary pulmonary arterial hypertension (principal); J41.0 Simple chronic bronchitis; J84.9 Interstitial pulmonary disease, unspecified; J98.4 Other disorders of lung; K85.90 Acute pancreatitis without necrosis or infection, unspecified
CPT/HCPCS: 99214; G2211

== ENCOUNTER → 2024-03-22 14:14 | Outpatient (BNVA) | payer OTHER, SELFPAY | PROVIDERS: PCP General Practice; Visit Provider Hospitalist | DX: I27.21 Secondary pulmonary arterial hypertension (principal); J41.0 Simple chronic bronchitis; J84.9 Interstitial pulmonary disease, unspecified; J98.4 Other disorders of lung | CPT/HCPCS: 99212 ==

== ENCOUNTER 2024-04-20 11:09 | Outpatient (AMB) | payer OTHER, SELFPAY ==
--- NOTE | 2024-04-20 11:56 | MHC.OFFVIS ---
Intake Visit Reasons: 6M PVR Intake Note: Patient presents for follow up on: OAB Urology Medications: myrbetriq Blood Thinner: Aspirin PVR: 88ml's Sustainability Project Coordinator Required: Yes Sustainability Project Coordinator Name: [id number] Accompanied by: Self / Same As Patient Allergies morphine [MORPHINE] Allergy (Mild, Verified 04/20/24 12:15) NAUSEA, VOMITING, DIZZINESS, HOT FLASHES Medication List - Last Reconciled 04/20/24 by CAL JeffersP- albuterol sulfate 90 mcg/actuation (Ventolin HFA) 2 inhalations inhalation Q4-6H PRN amlodipine 10 mg PO DAILY aspirin 81 mg PO DAILY atorvastatin 40 mg PO BEDTIME blood sugar diagnostic As directed budesonide-formoterol 160-4.5 mcg/actuation (Symbicort) 2 puffs inhalation BID PRN cholecalciferol (vitamin D3) (Vitamin D3) 50 mcg PO DAILY cyanocobalamin (vitamin B-12) 1,000 mcg PO DAILY furosemide (Lasix) 20 mg PO DAILY PRN 30 days gabapentin 200 mg PO BID glipizide ER 5 mg PO DAILY lancets As directed [id number] 24,000-76,000 -120,000 unit (Creon) 2 caps PO BID losartan 100 mg PO DAILY melatonin 10 mg PO BEDTIME metformin ER 1,000 mg PO BID metoprolol succinate ER 150 mg PO DAILY mirabegron ER (Myrbetriq) 25 mg PO DAILY mycophenolate mofetil 1,000 mg (2 x 500 mg) PO BID 30 days nintedanib (Ofev) 100 mg PO Q12H omeprazole 20 mg PO DAILY@0630 oxycodone-acetaminophen 5-325 mg 1 tab PO TID PRN simethicone 180 mg PO BID sitagliptin phosphate (Januvia) 50 mg PO DAILY sucralfate 2 grams PO DAILY trazodone 100 mg (2 x 50 mg) PO BEDTIME HPI Comments Details: Snehal is a very pleasant 73-year-old Bulgarian-speaking female patient of Dr. Thacker. She has a PMH of chronic restrictive lung disease, interstitial lung disease, memory loss, COPD, overactive bladder, renal cyst, insomnia, obstructive sleep apnea, and pulmonary arterial hypertension. She presents to the office today for follow-up of her renal cyst and lower urinary tract symptoms. In discussion with the patient today she reports to be doing and feeling well. She discusses having been hospitalized since her last office visit here 6 months ago for pancreatitis. She discusses following up with GI and her upcoming appointment in April. She currently denies any bothersome urinary issues or concerns. She reports feeling Myrbetriq has been extremely helpful in lower urinary tract symptoms she had been experiencing. In office urinalysis results reviewed with the patient today. PVR 88 mL. Previous workup has included a retroperitoneal ultrasound 09/14 noting bilateral kidneys with no hydronephrosis or renal calculi. A benign small 0.8 right-sided Bosniak class 1 cyst is noted that requires no additional follow-up per radiology report. The bladder is well distended and normal. Bilateral jets are demonstrated. Pre void bladder volume is approximately 290 mL. Postvoid bladder volume is approximately 70 mL. In office urinalysis results reviewed with the patient today. She denies hematuria, dysuria, foul smelling urine, changes to urinary stream, flank pain, fever, and or chills. Discussed at length importance of managing diabetes for improvement in lower urinary tract symptoms as well as overall health and well-being. 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 Renal cyst Left flank pain Thoracic spine pain Abnormal chest x-ray Lower abdominal pain AJREK (obstructive sleep apnea) Colon cancer screening Hepatic steatosis JAREK (obstructive sleep apnea) Bibasilar crackles Dyspnea Chronic restrictive lung disease ILD (interstitial lung disease) Memory loss COPD (chronic obstructive pulmonary disease) OAB (overactive bladder) History of postoperative nausea and vomiting Diabetes Insomnia Pulmonary arterial hypertension Surgical History History of cholecystectomy H/O esophagogastroduodenoscopy History of hernia repair History of colonoscopy Family History Father Hx of diabetes insipidus Mother Hx of diabetes insipidus Social History Household Members: Family Housing: Apartment Do you presently have visiting nurse or other home services: Yes Alcohol intake: never Comment: tp refusing bed alarm Patient Tobacco Use Status: Never used Tobacco Years Smoked: 1yr Second Hand Smoke Exposure: No service: No Current occupational status: retired Review of Systems Const Reports as per HPI Eyes Reports no additional complaints ENT Reports as per HPI Card Reports as per HPI Resp Reports as per HPI GI Reports as per HPI Reports as per HPI Musc Reports no additional complaints Neuro Reports no additional complaints Psych Reports no additional complaints Endo Reports as per HPI Geronimo/Lymph Reports no additional complaints Aller/Immun Reports no additional complaints Physical Exam Const General: cooperative, healthy appearing, comfortable, no acute distress, well developed, alert and awake Orientation/consciousness: patient oriented x3 Limitations: no limitations HEENT Head: Yes normal to inspection, Yes normocephalic and Yes atraumatic Ears: hearing grossly normal bilaterally Eyes General: appearance normal, both eyes and all related structures Neck Neck: Yes normal visual inspection and Yes trachea midline Chest Chest palpation & inspection: normal inspection of the chest Resp Effort & Inspection: normal respiratory effort and able to speak in complete sentences Cardio Rate: regular rate GI Inspection: Yes normal to inspection General: Yes no CVA tenderness Back/Spine/Pelvis Back: no CVA tenderness Skin General skin exam: no rashes or lesions noted Neuro General: patient oriented x3 Extrem General: Yes normal to inspection Psych Appearance: grossly normal and well kempt Mental Status: mental status grossly normal Speech and movement: Normal speech and movement present and Clear speech present Affect: normal affect Attitude: cooperative Thought process: Normal thought process present Thought content: Normal thought content present Insight: Fair insight present (Psych) Judgement: Fair judgement present (Psych) Office Procedures Post Void Residual Post Residual Void Post Void Residual (PVR): 88 [id number] Void Residual by ultrasound Results AMB Urinalysis, Automated UA Leukoctes 0 Gabriela/uL Last Edit by [employer] Beth on 04/20/24 14:12 UA Nitrite Last Edit by [employer] on 04/20/24 14:12 UA Urobilinogen 0.2 mg/dL Last Edit by [employer] on 04/20/24 14:12 UA Protein 15 mg/dL Last Edit by [employer] Beth on 04/20/24 14:12 UA pH 5.5 Last Edit by [employer] JacquelineaCon on 04/20/24 14:12 UA Blood 0 Neno/uL Last Edit by [employer] on 04/20/24 14:12 UA Specific [place] 1.030 Last Edit by Oumou Phillipsclemente on 04/20/24 14:12 UA Ketone Last Edit by Oumou Phillipsclemente on 04/20/24 14:12 UA Bilirubin 1 mg/dL Last Edit by [employer]um[employer] Jacquelineclemente on 04/20/24 14:12 UA Glucose 0 mg/dL Last Edit by Oum[employer] Jacquelineclemente on 04/20/24 14:12 Results Reviewed Results Reviewed: Laboratory Last Values Urine pH (Auto) 5.5 04/20/24 14:10 Specific [place] (Auto) 1.030 04/20/24 14:10 Urine Protein (Auto) 15 mg/dL 04/20/24 14:10 Glucose (UA)(Auto) 0 mg/dL 04/20/24 14:10 Urine Blood (Auto) 0 Neno/uL 04/20/24 14:10 Urine Bilirubin (Auto) 1 mg/dL 04/20/24 14:10 Urine Urobilinogen (Auto) 0.2 mg/dL 04/20/24 14:10 Leukocyte Esterase (Auto) 0 Gabriela/uL 04/20/24 14:10 Assessment & Plan Assessment & Plan (1) Renal cyst: Code(s): N28.1 - Cyst of kidney, acquired Category: Medical (2) OAB (overactive bladder): Code(s): N32.81 - Overactive bladder Category: Medical Plan In office urinalysis results reviewed with the patient today; as noted above. PVR 88 mL. Continue Myrbetriq as patient reports significant improvement in overactive bladder symptoms she had been experiencing since taking this medication; refill provided. Patient currently denies any bothersome urinary issues or concerns. Patient reports be happy with current voiding parameters Discussed importance of continuing to manage diabetes for improvement in lower urinary tract symptoms as well as for overall health and well-being. Follow-up 6 months with PVR; or sooner with any issues, concerns, and or questions. Orders: Orders AMB Post Void Residual by ultrasound Today N32.81 - Overactive bladder AMB Urinalysis Automated Today Z13.9 - Encounter for screening, unspecified Patient Instructions: The patient had an opportunity to ask questions regarding the treatment plan. All questions were answered. Physical exam, labs, and imaging were discussed and reviewed in detail. As well as risks, benefits, and discussion of treatment choices. No major barriers to understanding were identified. The patient expressed understanding and agreement with the above treatment plan. The patient was made aware they should contact our office by phone for worsening of their current condition, the appearance of new symptoms, or with any questions or concerns. Compliance is encouraged with any medications and follow up testing that is ordered. It is a privilege to be allowed the opportunity to participate in? your urological care.? Again, if you have any questions or concerns If you have any questions or concerns please do not hesitate to contact me. The office is [phone]. This note is constructed using voice recognition software. While every effort has been made to ensure accuracy dining room tables set up attendant errors may have been included. Yours sincerely, LIAT Jeffers-KELLIE Coding Level of Care Code Est Pt Level 3 (98095) Diagnoses Renal cyst N28.1 OAB (overactive bladder) N32.81 CPT Codes Post Residual Void - PVR CPT Code: 09262-Erfr Void Residual by ultrasound ([id number])
--- OUTSIDE RECORDS SUMMARY | 2024-04-20 12:25 | XMS_ITS | Encounter Summary ---
Author Organization [employer] Address [address] [place] [address] Care Team Providers Care Chain Mender Name Role Phone Aarti hTacker MD Primary Care Provider [phone] Reason for Visit * Reason Comments [employer] WORK[employer] Renewal [employer] Renewal Encounter Details Date Type Department Care Team (Late st Contact Info) Description 04/09/2024 9:00 AM EST Telemedicine [facility] [address], [place] [id number] Tyesha Lock RN Chronic pain syndrome Social History Tobacco Use Types Packs/Day Years Used Date Smoking Tobacco: Never Smokeless Tobacco: Never Alcohol Use Standard Drinks/Week Comments Never 0 (1 standard drink = 0.6 oz pur e alcohol) Alcohol Answer Date Recorded Frequency of Alcohol Consumption Not on file 07/03/2023 Average Number of Drinks Not on file 024 Frequency of Binge Drinking Not on file 06/22 Score 0 07/03/2023 Depression Answer Date Recorded Patient Health Questionnaire-9 Score 0 07/03/2023 Patient Health Questionnaire-9 Score 0 07/03/2023 Last PHQ-9: Questionnaire Data Not on file 0 07/03/2023 Housing Stability Answer Date Recorded What is your housing situation today? I have myrandasuzie howell 01/08/[address] you li ve. Do you have problems with any of the following? None of the above 01/08/2023 Food Insecurity Answer Date Recorded Within the past 12 months, y ou worried that your food would run out before you got money to buy more: Never True 01/08/2023 Within the past 12 months,th e food you bought just didn't last and you didn't have enough money to get more: Never True Transportation Answer Date Recorded In the past 12 months, has l ack of transportation kept you from medical appts, meetings, work or from getting things needed for daily living? Yes, it has kept me from medical appointments or getting medications. 07/03/2023 Utilities Answer Date Recorded In the past 12 months, has t he electric, gas, oil or water company threatened to shut off services in your home? No 01/08/2023 Depression Answer Date Recorded Patient Health Questionnaire-2 Score 0 07/03/2023 Comments Unknown Sex and Gender Information Value Date Recorded Sex Assigned at Female 01/21/2022 10:17 AM EDT Legal Sex Female 10:17 AM EDT Gender Identity Female 01/21/2022 10:17 AM EDT Sexual Orientation Straight 01/21/2022 10 :17 AM EDT documented as of this encounter Progress Notes * Tyesha Lock RN - 04/09/2024 9:00 AM EST S: Pt called for Tele [employer] Renewal Visit. Prescribed Percocet 5mg Q8hr PRN. States she has been taking as prescribed, last dose taken this morning. Continues to deny smoking cigarettes, ETOH use, Illicit drug use and marijuana use. Currently rates her pain an 4 and states medication is 80% effectiveat alleviating her pain. Current pain sites are her lower back and her legs, left side more than right side. Denies any alternative pain relief techniques. O: F[employer] SERVICE WORK[employer] Tele Tier 2. Pt currently prescribed Percocet 5mg Q8hr PRN. [employer] TRA[employer]ING IN[employer] verified today. Rx last filled on 03/15/24. Pill count performed over the phone. Pt reports having 8 pills at this time, 8 at least expected. Medication is not overused by patient. BPI updated, see scanned documents from this date. Pain severity score of 4.8, activity interference score of 5.3. Previous BPI completed 09/05/23 with pain severity score of 6.8, activity interference score of 8.3. Narcan medication reviewed, how it's administered and when it's used. Pt stated she understood and has it available. Will update PCPwith BPI scoring. Last PCP visit was 11/30/33, scheduled next 04/13/24. A: F[employer]OR SERVICE WORK[employer] Contract Renewal Visit: Chronic Opioid use related to pain. 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 Pt to continue taking medication only as prescribed; Next Tele FLOOR SERVICE WORKER [employer] RV appointment scheduled for 06/25/24 @ 9:30a F/U sooner PRN. Appointment reminder mailed. Pt verbalized understanding and agreed to plan. documented in this encounter Plan of Treatment Upcoming Encounters Date Type Department Care Team (Late st Contact Info) Description 06/25/2024 9:30 AM EDT Telemedicine [facility] [address] [place] [address] Tyesha Lock, RN documented as of this encounter Goals Goal Patient Goal Type Associated Problems Recent Progress Patient-Stated? Author Patient will adhere to medication regimen General No Genoveva Jones, PharmD Hemoglobin A1c < 7.5 Result Component 6.3( 1:32 PM EST) No Genoveva Jones PharmD documented as of this encounter Visit Diagnoses Diagnosis Chronic pain syndrome documented in this encounter Additional Health Concerns Assessment Noted Time PHQ-9 Depression Total Score: 0 07/03/19 24 10:52 AM EDT documented as of this encounter Care Teams Chain Mender Relationship Specialty Start Date End Date Aarti Thacker MD [address] [place] [id number] PCP - General Family Medicine 02/04/20 documented as of this encounter
--- OUTSIDE RECORDS SUMMARY | 2024-04-20 12:25 | XMS_ITS | Encounter Summary ---
Author Organization [employer] Address [address] [place] [address] Care Team Providers Care Dry Heat Cabinet Attendant Name Role Phone Aarti Thacker MD Primary Care Provider [phone] Reason for Visit * Reason Comments Med Refill Encounter Details Date Type Department Care Team (Late st Contact Info) Description 11/14/2023 Refill [facility] [address] [place], [place] [phone] Aarti Thacker MD [address] [place], [place] [phone] Social History Tobacco Use Types Packs/Day Years [...] is your housing situation today? I have myranda howell 01/08/[address] you [...] AM EDT documented as of this encounter Plan of Treatment Upcoming Encounters Date Type Department Care Team (Late st Contact Info) Description 06/25/2024 9:30 AM EDT Telemedicine [facility] [address] [place] [id number] Tyesha Lock, RN documented as of this encounter Goals Goal Patient Goal Type Associated Problems Recent Progress Patient-Stated? Author Patient will adhere to medication regimen General No Yossis-Genoveva Keller, PharmD Hemoglobin A1c < 7.5 Result Component 6.3( 5 1:32 PM EST) No YossisGenoveva Polo PharmD documented as of this encounter Visit Diagnoses Not on filedocumented in this encounter Additional Health Concerns Assessment Noted Time PHQ-9 Depression Total Score: 0 07/03/19 24 10:52 AM EDT documented as of this encounter Care Teams Dry Heat Cabinet Attendant Relationship Specialty Start Date End Date Aarti Thacker MD [address] [place] [id number] PCP - General Family Medicine 02/04/20 documented as of this encounter
--- OUTSIDE RECORDS SUMMARY | 2024-04-20 12:25 | XMS_ITS | Encounter Summary ---
Author Organization [employer] [facility] Address [address] [place] [address] Care Team Providers Care Lap Winder Name Role Phone Aarti Thacker MD Primary Care Provider [phone] Encounter Details Date Type Department Care Team (Latest Contact Info) Description 08/03/2018 Abstract [facility] CONVERSIONS Dental, Provider, DDS Social History Tobacco Use Types Packs/Day Years Used Date Smoking Tobacco: Never Assessed Comments Unknown Sex and Gender Information Value Date Recorded Sex Assigned at Female 01/21/2022 10:17 AM EDT Legal Sex Female 10:17 AM EDT Gender Identity Female 01/21/2022 10:17 AM EDT Sexual Orientation Straight 01/21/2022 10 :17 AM EDT documented as of this encounter Plan of Treatment Upcoming Encounters Date Type Department Care Team (Late st Contact Info) Description 06/25/2024 9:30 AM EDT Telemedicine [facility] [address] [place] [address] Tyesha Lock, RASHAUN documented as of this encounter Visit Diagnoses Not on filedocumented in this encounter Care Teams Lap Winder Relationship Specialty Start Date End Date Aarti Thacker MD [address] [place] [address] PCP - General Family Medicine 02/04/20 documented as of this encounter
--- OUTSIDE RECORDS SUMMARY | 2024-04-20 12:25 | XMS_ITS | Encounter Summary ---
Author Organization [employer] Address [address] [facility] 7[address] [place] [address] Care Team Providers Care Paper Wrapping Machine Operator Name Role Phone Aarti Thacker MD Primary Care Provider [phone] Reason for Visit * Reason Comments [facility] follow up Encounter Details Date Type Department Care Team (Late st Contact Info) Description 03/30/2024 1:15 PM EST Office Visit [facility] [address] [place], [place] [phone] Renae Sandhu MD [address] [place] [address] Acute pancreatitis without infection or necrosis, unspecified pancreatitis type (Primary Dx); Type 2 diabetes mellitus with hyperglycemia, without long-term current use of insulin ([facility]); Essential hypertension Social History Tobacco Use Types Packs/Day Years Used Date Smoking Tobacco: Never Smokeless Tobacco: Never Tobacco Cessation:Counseling Given: Not Answered Alcohol Use Standard Drinks/Week Comments Never 0 [...] AM EDT documented as of this encounter Last Filed Vital Signs Vital Sign Reading Time Taken Comments Blood Pressure 151/81 03/30/2024 1:29 PM EST Pulse 77 03/30/2024 1:29 PM EST Temperature 36.6 ??C (97.8 ??F) 03/30/2024 1:29 PM ES T Respiratory Rate 20 03/30/2024 1:29 PM EST Oxygen Saturation 98% 03/30/2024 1:29 PM EST Inhaled Oxygen Concentration - - Weight 72.4 kg (159 lb 9.6 oz) 03/30/2024 1:29 P M EST Height 152.4 cm (5') 03/30/2024 1:29 PM EST Body Mass Index 31.17 03/30/2024 1:29 PM EST documented in this encounter Progress Notes * Renae Fuller MD - 03/30/2024 1:15 PM EST SUBJECTIVE: Snehal Plasencia is a 73 y.o. year old female who presents for HDF . [facility] (03/05/24-03/09/24) - draft Patient presented for evaluation of left lower quadrant pain associated with nausea. CT scan showedfinding consistent with acute interstitial edematous pancreatitis. Received Toradol, Fentanyl and Zofran in the ED. Patient discharged home to follow up with Dr. Irving. No medication changes occurred at this hospitalization Acute Concerns: Patient reports she feels much better since hospitalization, she tells me she still has some nausea, but she has being able to eat and drink, se can not tell if this nausea sometimes vomiting is due to cellcept side effect or because of her recent pancreatitis diagnose Social History Social History Narrative Not on file Patient Active Problem List Diagnosis Tricuspid valve incompetence, non-rheumatic Abdominal pain Abnormal colonoscopy Abnormal mammogram Adjustment disorder Essential hypertension Chronic diastolic heart failure (CMS/HCC) Coronary arteriosclerosis Type 2 diabetes mellitus with hyperglycemia, without long-term current use of insulin (CMS/HCC) Dizziness Female stress incontinence Gastroesophageal reflux disease Hypercholesterolemia Left ventricular hypertrophy Onychomycosis Peripheral venous insufficiency Proteinuria Pulmonary arterial hypertension (CMS/HCC) Renal cyst Tinea pedis Trigger finger Interstitial lung disease (CMS/HCC) Obstructive sleep apnea Obesity Acute pain of right shoulder Post menopausal syndrome Chronic bilateral low back pain with left-sided sciatica DISH (diffuse idiopathic skeletal hyperostosis) Fatty liver Acute pancreatitis No family history on file. Review of Systems Constitutional: Negative. HENT: Negative. Respiratory: Negative. Cardiovascular: Negative. Gastrointestinal: Positive for abdominal distention, nausea and vomiting. Negative for abdominal pain, anal bleeding, blood in stool, constipation, diarrhea and rectal pain. OBJECTIVE: Vitals: 03/30/24 1329 BP: (!) 151/81 BP Location: Left arm Patient Position: Sitting BP Cuff Size: Large adult Pulse: 77 Resp: 20 Temp: 97.8 ??F (36.6 ??C) TempSrc: Temporal SpO2: 98% Weight: 159 lb 9.6 oz (72.4 kg) Height: 5' (1.524 m) Physical Exam Constitutional: Appearance: Normal appearance. Cardiovascular: Rate and Rhythm: Normal rate and regular rhythm. Pulmonary: Effort: Pulmonary effort is normal. Breath sounds: Normal breath sounds. Abdominal: General: Abdomen is flat. Palpations: Abdomen is soft. Tenderness: There is no abdominal tenderness. Musculoskeletal: Right lower leg: No edema. Left lower leg: No edema. Neurological: Mental Status: She is alert. Follow Up: No follow-ups on file. Current Outpatient Medications on File Prior to Visit Medication Sig Dispense Refill albuterol 108 (90 Base) MCG/ACT inhaler Inhale 2 puffs every 4 (four) hours if needed for wheezing.18 g 11 amLODIPine (Norvasc) 10 MG tablet TAKE 1 TABLET BY MOUTH EVERY MORNING 90 tablet 3 aspirin (Aspirin Low Dose) 81 MG EC tablet TAKE 1 TABLET BY MOUTH EVERY EVENING 90 tablet 3 atorvastatin (Lipitor) 40 MG tablet Take 1 tablet by mouth at bed time. benzonatate (Tessalon) 100 MG capsule TAKE 1 CAPSULE BY MOUTH TWICE DAILY IN THE MORNING AND AT BEDTIME NEEDED FOR COUGH. DO NOT BREAK, CRUSH, DISSOLVE OR CHEW 60 capsule 3 Blood Glucose Monitoring Suppl (FreeStyle Lite) device Inject 1 each under the skin 2 times daily. 1 each 0 Blood Pressure Monitoring (Blood Pressure Cuff) misc Use to check your blood pressure daily 1 each 0 cyanocobalamin (Vitamin B-12) 1000 MCG tablet TAKE 1 TABLET BY MOUTH EVERY MORNING 90 tablet 3 D3 Super Strength 50 MCG (2000 UT) capsule TAKE 1 CAPSULE BY MOUTH EVERY MORNING 90 capsule 3 FREESTYLE LITE test strip TEST BLOOD SUGAR TWICE DAILY 100 strip 11 furosemide (Lasix) 20 MG tablet Take 1 tablet by mouth 1 (one) time each day. gabapentin (Neurontin) 100 MG capsule Take 2 capsules (200 mg) by mouth 2 times daily. 120 capsule 11 glipiZIDE XL (Glucotrol XL) 5 MG 24 hr tablet TAKE 1 TABLET BY MOUTH EVERY MORNING (IF FASTING GLUCOSE IS >120) 90 tablet 3 ibuprofen 800 MG tablet TAKE 1 TABLET BY MOUTH THREE TIMES DAILY 90 tablet 1 losartan (Cozaar) 100 MG tablet Take 1 tablet by mouth 1 (one) time each day. melatonin 5 MG tablet TAKE 2 TABLETS BY MOUTH EVERY DAY AT BEDTIME 180 tablet 1 metFORMIN XR (Glucophage-XR) 500 MG 24 hr tablet TAKE 2 TABLETS BY MOUTH TWICE DAILY IN THE MORNINGAND EVENING WITH MEALS 360 tablet 3 metoprolol succinate XL (Toprol-XL) 100 MG 24 hr tablet TAKE 1 AND 1/2 TABLETS BY MOUTH IN THE MORNING mycophenolate (Cellcept) 500 MG tablet Take 500 mg by mouth 2 times daily. Myrbetriq 25 MG 24 hr tablet Take 25 mg by mouth in the morning. naloxone (Narcan) 4 mg/0.1 mL nasal spray Administer 1 spray (4 mg) into affected nostril(s) if needed for opioid reversal. In 1 nostril, may repeat dose every 2-3 minutes as needed alternating nostrils with each dose 2 each 2 Ofev 100 MG capsule Take 1 capsule by mouth every 12 (twelve) hours. omeprazole (PriLOSEC) [address] capsule TAKE 1 CAPSULE BY MOUTH TWICE DAILY IN THE MORNING AND IN THE EVENING ondansetron ODT (Zofran-ODT) 4 MG disintegrating tablet 4 MG ORALLY EVERY 8 HOURS NEEDED FOR NAUSEA AND VOMITING FOR 30 DAYS oxyCODONE-acetaminophen (Percocet) 5-325 MG tablet Take 1 tablet by mouth every 8 (eight) hours if needed for severe pain for up to 28 days. Do not start before March 12, 2024. 84 tablet 0 pancrelipase, Iyr-Btnr-Aocz, (Creon) 09005-59979 units capsule Take 2 capsules by mouth 2 times daily. Simethicone Ultra Strength 180 MG capsule Take 180 mg by mouth in the morning and at bedtime. sucralfate (Carafate) 1 g tablet TAKE 2 TABLETS BY MOUTH EVERY DAY AT NOON Symbicort 160-4.5 MCG/ACT inhaler traZODone (Desyrel) 50 MG tablet TRUEplus Lancets 33G misc TEST BLOOD SUGAR TWICE DAILY 100 each 11 [DISCONTINUED] Blood Glucose Monitoring Suppl (FreeStyle Crumpler Lite) w/Device kit USE DIRECTEDTO TEST BLOOD SUGAR TWICE DAILY [DISCONTINUED] Januvia 50 MG tablet TAKE 1 TABLET BY MOUTH EVERY MORNING 90 tablet 3 [DISCONTINUED] Ofev 150 MG capsule No current facility-administered medications on file prior to visit. Problem List Items Addressed This Visit Type 2 diabetes mellitus with hyperglycemia, without long-term current use of insulin ([facility]) Today I discontinue her januvia C/w metformin A1c is 6.3%, I did not add for now another medication, f/u with PCP for further decisions Relevant Orders POCT Glucose (Completed) POCT HGB A1C (Completed) Acute pancreatitis - Primary Improving physical exam is benign Extensive counseling about slowly progressing her diet done ED precautions reviewed with patient (if pain persist or worse, if not tolerating PO call EMS or goASAP to emergency room) Essential hypertension Patient forgot to take her blood pressure medication today , I advise not to miss any dose f/u withPCP documented in this encounter Miscellaneous Notes * Assessment & Plan Note - Renae Fuller MD - 03/30/2024 2:21 PM EST Associated Problem(s): Type 2 diabetes mellitus with hyperglycemia, without long-term current use of insulin ([facility]) Today I discontinue her januvia C/w metformin A1c is 6.3%, I did not add for now another medication, f/u with PCP for further decisions * Assessment & Plan Note - Renae Fuller MD - 03/30/2024 2:19 PM EST Associated Problem(s): Acute pancreatitis Improving physical exam is benign Extensive counseling about slowly progressing her diet done ED precautions reviewed with patient (if pain persist or worse, if not tolerating PO call EMS or goASAP to emergency room) * Assessment & Plan Note - Renae Fuller MD - 03/30/2024 2:18 PM EST Associated Problem(s): Essential hypertension Patient forgot to take her blood pressure medication today , I advise not to miss any dose f/u withPCP documented in this encounter Plan of Treatment Upcoming Encounters Date Type Department Care Team (Late st Contact Info) Description 06/25/2024 9:30 AM EDT Telemedicine [facility] [address] [place] [phone] Tyesha Lock RN documented as of this encounter Goals Goal Patient Goal Type Associated Problems Recent Progress Patient-Stated? Author Patient will adhere to medication regimen General Genoveva Judge PharmD Hemoglobin A1c < 7.5 Result Component 6.3( 1:32 PM EST) No Genoveva Jones PharmD documented as of this encounter Procedures Procedure Name Priority Date/Time Associated Diagnosis Comments POCT GLYCATED HEMOGLOBIN, TOTAL Routine 03/30/2024 1:32 PM EST Type 2 diabetes mellitus with hyperglycemia, without long-term current use of insulin ([facility]) POCT GLUCOSE Routine 03/30/2024 1:32 PM EST Type 2 diabetes mellitus with hyperglycemia, without long-term current use of insulin ([facility]) documented in this encounter Results * (ABNORMAL) POCT HGB A1C (03/30/2024 1:32 PM EST) Hemoglobin A1C 6.3(A) 4.0 - 6.0 % QC Media Lot # [id number] Lot# Expiration Date 7 Blood 03/30/2024 1:32 PM EST Renae Fuller MD POINT OF CARE TEST EN TER/EDIT ORDERABLES Final Result * POCT Glucose (03/30/2024 1:32 PM EST) Glucose Blood, POC 88 60 - 200 mg/dL Blood Capillary blood specimen / Unknown 03/30/2024 1:32 PM EST Renae Fuller MD POINT OF CARE TEST EN TER/EDIT ORDERABLES Final Result documented in this encounter Visit Diagnoses Diagnosis Acute pancreatitis without infection or necrosis, unspecified pancreatitis type- Primary Type 2 diabetes mellitus with hyperglycemia, without long-term current use of insulin ([facility]) Essential hypertension Unspecified essential hypertension documented in this encounter Additional Health Concerns Assessment Noted Time PHQ-9 Depression Total Score: 0 07/03/19 24 10:52 AM EDT documented as of this encounter Care Teams Paper Wrapping Machine Operator Relationship Specialty Start Date End Date Aarti Thacker MD [address] [place] [phone] PCP - General Family Medicine 02/04/20 documented as of this encounter
--- OUTSIDE RECORDS SUMMARY | 2024-04-20 12:25 | XMS_ITS ---
Author Organization [employer] [facility] Address [address] [facility] 7t [place] [address] Care Team Providers Care Manager Advertising Name Role Phone Aarti Thacker MD Primary Care Provider [phone] EDUCATION SITE MANAGER Status:Enrolled (Active) Start date:05/07/2022 Enrollment date:05/07/2022 Enrollment reason:Identified using pharmacy data Current support & services provided:Tier 4 (EDUCATION SITE MANAGER) Case Team Name Relationship Phone Tyesha Lock RN Registered Nurse(Responsible Sta ff) Continued Care and Services Coordination
--- OUTSIDE RECORDS SUMMARY | 2024-04-20 12:25 | XMS_ITS | Encounter Summary ---
Author Organization [employer] [facility] Address [address] [facility] 7t [place] [address] Care Team Providers Care Tying Machine Operator Lumber Name Role Phone Aarti Thacker MD Primary Care Provider [phone] Reason for Visit * Reason Comments Med Refill Encounter Details Date Type Department Care Team (Late Contact Info) Description 10/20/2022 Refill [facility] [address] [place] [phone] Cristina Mcginnis FNP [address] [place], [place] [phone] Social History Tobacco Use Types Packs/Day Years Used Date Smoking Tobacco: Never Smokeless Tobacco: Never Alcohol Use Standard Drinks/Week Comments Never 0 (1 standard drink = 0.6 oz pur e alcohol) PHQ-2 Answer Date Recorded Patient Health Questionnaire-2 Score 1 06/07/2022 Depression Answer Date Recorded Patient Health Questionnaire-2 Score 1 06/07/2022 Comments Unknown Sex and Gender Information Value [...] [facility] [address] [place] [phone] Tyehsa Lock RN documented as of this encounter Visit Diagnoses Not on filedocumented in this encounter Care Teams Tying Machine Operator Lumber Relationship Specialty Start Date End Date Aarti Thacker MD [address] [place] [address] PCP - General Family Medicine 02/04/20 documented as of this encounter
--- OUTSIDE RECORDS SUMMARY | 2024-04-20 12:25 | XMS_ITS | Encounter Summary ---
Author Organization [employer] [facility] Address [address] [facility] 7t [place] [address] Care Team Providers Care Electrical Wiring Lineman Name Role Phone Aarti Thacker MD Primary Care Provider [phone] Reason for Visit * Reason Comments Med Refill Encounter Details Date Type Department Care Team (Late st Contact Info) Description 06/11/2022 Refill [facility] [address] [place] [address] [phone] Aarti Thacker MD [address] [place] [address] [phone] Other chronic pain Social History Tobacco Use Types Packs/Day Years [...] Orientation Straight 01/21/2022 10 :17 AM EDT COVID-19 Exposure Response Date Recorded In the last 10 days, have yo u been in contact with someone who was confirmed or suspected to have Coronavirus/COVID-19? No / Unsure 06/07/2022 9:14 AM EDT documented as of this encounter Plan of Treatment Upcoming Encounters Date Type Department Care Team (Late st Contact Info) Description 06/25/2024 9:30 AM EDT Telemedicine [facility] [address] [place] [address] Tyesha Lock, RN documented as of this encounter Visit Diagnoses Diagnosis Other chronic pain documented in this encounter Care Teams Electrical Wiring Lineman Relationship Specialty Start Date End Date Aarti Thacker MD [address] [place] [address] PCP - General Family Medicine 02/04/20 documented as of this encounter
--- OUTSIDE RECORDS SUMMARY | 2024-04-20 12:25 | XMS_ITS | Encounter Summary ---
Author Organization [employer] [facility] Address [address] [facility] [address]t [place] [address] Care Team Providers Care Director Of Assessing Name Role Phone Aarti Thacker MD Primary Care Provider [phone] Encounter Details Date Type Department Care Team (Late st Contact Info) Description 11/19/2022 Abstract [facility] [address] [place] [phone] Aarti Thacker MD [address] [place] [address] [phone] Social History Tobacco Use Types Packs/Day Years [...] Info) Description 06/25/2024 9:30 AM EDT Telemedicine [facility] [address] [place] [address] [phone] Tyesha Lokc RN documented as of this encounter Visit Diagnoses Not on filedocumented in this encounter Care Teams Director Of Assessing Relationship Specialty Start Date End Date Aarti Thacker MD [address] [place] [address] PCP - General Family Medicine 02/04/20 documented as of this encounter
--- OUTSIDE RECORDS SUMMARY | 2024-04-20 12:25 | XMS_ITS | Encounter Summary ---
Author Organization [employer] Address [address] [facility] [address] [place] [address] Care Team Providers Care Manager Recovery Name Role Phone Aarti Thacker MD Primary Care Provider [phone] Encounter Details Date Type Department Care Team (Latest Contact Info) Description 03/30/2024 Travel Social History Tobacco Use Types Packs/Day Years [...] EDT Telemedicine [facility] [address] [place] [address] Tyesha Lock RN documented as of this encounter Goals Goal Patient Goal Type Associated Problems Recent Progress Patient-Stated? Author Patient will adhere to medication regimen General No Yossis-Genoveva Keller, PharmD Hemoglobin A1c < 7.5 Result Component 6.3( 5 1:32 PM EST) No Yossis-Gambl elizabeth, Genoveva, PharmD documented as of this encounter Visit Diagnoses Not on filedocumented in this encounter Additional Health Concerns Assessment Noted Time PHQ-9 Depression Total Score: 0 07/03/19 24 10:52 AM EDT documented as of this encounter Care Teams Manager Recovery Relationship Specialty Start Date End Date Aarti Thacker MD [address] [place] [phone] PCP - General Family Medicine 02/04/20 documented as of this encounter
--- OUTSIDE RECORDS SUMMARY | 2024-04-20 12:25 | XMS_ITS | Encounter Summary ---
Author Organization [employer] Address [address] [facility] 7t [place] [address] Care Team Providers Care Electronic Sensing Equipment Assembler Name Role Phone Aarti Thacker MD Primary Care Provider [phone] Reason for Visit * Reason Onset Date Comments Med Refill 04/08/2024 Encounter Details Date Type Department Care Team (Late st Contact Info) Description 04/08/2024 Refill [facility] [address] [place], [place] [phone] Aarti Thacker MD [address] [place], [place] [phone] Social History Tobacco Use Types Packs/Day Years [...] AM EDT documented as of this encounter Miscellaneous Notes * Telephone Encounter - Carmelo Arreola - 04/08/2024 11:23 AM EST TC from pt requesting medication refill. Medications needing refill : Ofev 100 MG capsule To be sent to: [facility] documented in this encounter Plan of Treatment Upcoming Encounters Date Type Department Care Team (Late st Contact Info) Description 06/25/2024 9:30 AM EDT Telemedicine [facility] [address] [place] [phone] Tyesha Lock, RN documented as of this encounter Goals Goal Patient Goal Type Associated Problems Recent Progress Patient-Stated? Author Patient will adhere to medication regimen General No Piers-Gambl e, Genoveva, PharmD Hemoglobin A1c < 7.5 Result Component 6.3( 1:32 PM EST) No Piers-Gambl e, Genoveva, PharmD documented as of this encounter Visit Diagnoses Not on filedocumented in this encounter Additional Health Concerns Assessment Noted Time PHQ-9 Depression Total Score: 0 07/03/19 24 10:52 AM EDT documented as of this encounter Care Teams Electronic Sensing Equipment Assembler Relationship Specialty Start Date End Date Aarti Thacker MD [address] [place] [address] PCP - General Family Medicine 02/04/20 documented as of this encounter
--- OUTSIDE RECORDS SUMMARY | 2024-04-20 12:25 | XMS_ITS | Encounter Summary ---
Author Organization [employer] Address [address] [facility] [address] [place] [address] Care Team Providers Care Roll Weigher Name Role Phone Aarti Thacker MD Primary Care Provider [phone] Reason for Visit * Reason Comments Follow-up Encounter Details Date Type Department Care Team (Latest Contact Info) Description 04/13/2024 11:00 AM EST Office Visit [facility] [address] [place], [place] [phone] Aarti Thacker MD [address] [place], [place] [phone] Diabetic polyneuropathy associated with type 2 diabetes mellitus (CMS/HCC) (Primary Dx); Chronic diastolic heart failure (CMS/HCC); Interstitial lung disease (CMS/HCC); Acute pancreatitis, unspecified complication status, unspecified pancreatitis type Social History Tobacco Use Types Packs/Day Years [...] Sign Reading Time Taken Comments Blood Pressure 146/82 04/13/2024 10:42 AM EST Pulse 76 04/13/2024 10:42 AM EST Temperature 36.3 ??C (97.3 ??F) 04/13/2024 10:[address] Respiratory Rate 16 04/13/2024 10:42 AM EST Oxygen Saturation - - Inhaled Oxygen Concentration - - Weight 72.6 kg (160 lb) 04/13/2024 10:42 AM EST Height 152.4 cm (5') 04/13/2024 10:42 AM EST Body Mass Index 31.25 04/13/2024 10:42 AM EST documented in this encounter Progress Notes * Aarti Thacker MD - 04/13/2024 11:00 AM EST SUBJECTIVE: Snehal Plasencia is a 73 y.o. year old female who presents for chronic disease management. Denies recent illness, ER visit, or hospitalization. Acute Concerns: Xrays show diffuse demineralization, lumbar spondylosis, degenerative changes héctor hips 09/2023 OAB, cyst of kidney Seen rheum, GI, physical med for DISH? MTM: prescription for a home BP monitor 11/2023 physical med- continue home exercises, oxycodone 11/2023 get check xray and PFT, decrease mycophenolate if studies are good, cont Ofev 100mg, rheum says not autoimmune, offer Salonpas 03/04/24 ER for abd/chest pain IMPRESSION: 1. Moderate fat stranding surrounding the pancreatic body and tail potentially indicating acute interstitial edematous pancreatitis. No demonstrated peripancreatic fluid collection. Recommend correlation with pancreatic serum markers. Lipase 14 at this time 2. Diverticulosis without evidence of diverticulitis. 03/22/[address] Hill, decreasing mycophenolate (Cellcept) due to pancreatitis her abdominal pain has largely resolved, but not completely. Question ongoing pancreatitis Interim Updates: DISH, causing pain throughout her skeleton. Increased Gabapentin dose and Percocet and rheum. 08/2023 physical med: Complaining more of left-sided pain that goes down to the leg and abdominal pain that wraps around towards the back. Investigate whether this is lumbar/pelvic/hip related. We will start with plain x-rays today. As for the question of DISH, we will send for labs to test ARPIT and RF. Patient denies any past history of rheumatoid arthritis. Xrays show diffuse demineralization, lumbar spondylosis, degenerative changes héctor hips ILD- dx 2021, sees Dr Hill at [facility] on Cellcept 500mg BID and Ofev 100mg BID Uses Tessalon for cough twice a day Labs negative for underlying connective tissue disorder Serial CT scans to assess for progression and need for anti-fibrotic therapy getting PAP study so that she can use her machine again to treat her JAREK Pulm HTN: sees Dr Sergio sumner, 12/24/21 taking Symbicort Memory loss, has been on Percocet and statins x 10 years takes Percocet three times a day for pains in feet DM2: taking Januvia and Metformin regularly A1C is 6.4 (11/2023) and her fasting blood sugars <180 HTN: on Amlodipine 10, Lasix 20, Losartan 100, Metoprolol 100 At goal at home <140/90 Chronic pain (back, feet, hands) Percocet 5/325 three times daily WAGON WASHER agreement in place Fatty liver: seeing Dr Almodovar/Jeannine Rendon at [facility]. Labs done 11/13/21 AFP 1.9, normal liver panel Cirrhosis screening 09/2021 GI- carafate, creon, omeprazole CT ABDOMEN PELVIS 09/26/21 IMPRESSION: Abnormal appearance to the distal stomach questionable for ulcer. Correlation with endoscopy recommended. Mild wall thickening of the distal duodenum and proximal jejunum. Mild diverticulosis of the colon. No evidence of diverticulitis. ULTRASOUND OF THE ABDOMEN 07/18/20 IMPRESSION: Limited exam. Slightly echogenic liver probably representing fatty infiltration. Postcholecystectomy. Slightly dilated common bile duct similar to previous exam. This may be normal postcholecystectomy. Small right renal cyst. COLONOSCOPY 11/13/20 Colonoscopy Findings: Three small to medium sized polyps removed Moderate to severe diverticulosis seen in the left colon Plan: Repeat Colonoscopy interval based on path results - in 3-5 years if polyps are adenomatous and 10 years if polyps are hyperplastic. Urology 09/2023 OAB, cyst of kidney Health maintenance: Mammogram- 08/2021, Birads 1 Colon cancer screening- Had colonoscopy, polyps Oct 2020 Imms- due for zoster and RSV DEXA- 01/2023 osteopenia -1.5 in femoral neck Latest Reference Range & Units 03/04/24 13:50 Glucose 60 - 115 mg/dL 132 (H) Urea Nitrogen (BUN) 9 - 16 mg/dL 9 Creatinine, Serum 0.5 - 1.4 mg/dL 0.61 Sodium 135 - 145 mmol/L 140 Potassium 3.3 - 5.1 mmol/L 4.1 Chloride 96 - 108 mmol/L 108 Carbon Dioxide 22 - 29 mmol/L 26 Calcium 8.4 - 10.2 mg/dL 9.3 Albumin Level 3.5 - 5.0 g/dL 3.9 Bilirubin, Total 0.0 - 1.0 mg/dL 0.5 AST 5 - 31 U/L 39 (H) ALT 0 - 31 U/L 13 Anion Gap 12 - 20 10 (L) Magnesium 1.6 - 2.6 mg/dL 1.6 Total Protein 6.5 - 8.0 g/dL 7.8 Lipase 8 - 78 U/L 14 Red Blood Count 4.20 - 5.50 X10*6/uL 3.88 (L) Hemoglobin 12.0 - 16.0 g/dl 12.8 Hematocrit 37.0 - 47.0 % 36.8 (L) Mean Corpuscular Volume 80.0 - 98.0 fL 94.8 Mean Corpuscular Hemoglobin 27.0 - 33.0 pg 33.0 Mean Corpuscular HGB Conc 31.0 - 35.0 g/dl 34.8 Red Cell Distribution Width 11.0 - 16.0 % 12.3 Platelet Count 160 - 400 X10*3/uL 206 Eosinophils Percent Auto 0 - 4 % 0.4 Lymphocytes Absolute Auto 1.2 - 4.9 X10*3/uL 2.1 Basophils Absolute Auto 0.0 - 0.2 X10*3/uL 0.0 Monocytes Absolute Auto 0.1 - 1.2 X10*3/uL 0.7 Neutrophils Absolute Auto 2.0 - 8.3 x10*3/uL 8.2 Neutrophils Percent Auto 45 - 73 % 73.6 (H) Basophils Percent Auto 0 - 2 % 0.4 Eosinophils Absolute Auto 0.0 - 0.4 X10*3/uL 0.1 Lymphocytes Percent Auto 20 - 40 % 19.1 (L) Monocytes Percent Auto 2 - 11 % 6.1 Imm Gran Abs Auto 0.00 - 0.03 X10*3/uL 0.05 (H) Imm Gran Pct Auto 0.0 - 0.4 % 0.4 Alkaline Phosphatase 39 - 117 U/L 73 Creatinine Clr Calc Pharmacy 75.4 Estimated Glomerular Filt Rate >60 Mean Platelet Volume 9.4 - 12.3 fL 11.4 NRBC Abs Auto 0.0 - 0.012 X10*3/uL 0.000 NRBC Pct Auto 0.0 - 0.2 /100WBC 0.0 TROPONIN I HIGH SENSITIVITY <3.5 - 17.0 ng/L <2.7 White Blood Count 4.8 - 10.8 X10*3/uL 11.2 (H) Patient Active Problem List Diagnosis Tricuspid valve [...] idiopathic skeletal hyperostosis) Fatty liver Acute pancreatitis Diabetic polyneuropathy associated with type 2 diabetes mellitus (CMS/HCC) History reviewed. No pertinent surgical history. No family history on file. Social History Social History Narrative Not on file Review of Systems Constitutional: Negative. Respiratory: Negative. Cardiovascular: Negative. Gastrointestinal: Positive for abdominal pain. Musculoskeletal: Positive for arthralgias. Negative for joint swelling. Skin: Negative. OBJECTIVE: Vitals: 04/13/24 1042 BP: (!) 146/82 BP Location: Left arm Patient Position: Sitting BP Cuff Size: Adult Pulse: 76 Resp: 16 Temp: 97.3 ??F (36.3 ??C) TempSrc: Oral Weight: 160 lb (72.6 kg) Height: 5' (1.524 m) Physical Exam Vitals and nursing note reviewed. Constitutional: Appearance: Normal appearance. HENT: Head: Normocephalic and atraumatic. Cardiovascular: Rate and Rhythm: Normal rate and regular rhythm. Pulses: Normal pulses. Heart sounds: Normal heart sounds. Pulmonary: Effort: Pulmonary effort is normal. Breath sounds: Normal breath sounds. Abdominal: General: Abdomen is flat. Bowel sounds are normal. There is no distension. Palpations: Abdomen is soft. There is no mass. Tenderness: There is abdominal tenderness. There is no right CVA tenderness, left CVA tenderness, guarding or rebound. Skin: General: Skin is warm and dry. Neurological: General: No focal deficit present. Mental Status: She is alert and oriented to person, place, and time. Psychiatric: Mood and Affect: Mood normal. Behavior: Behavior normal. ASSESSMENT/PLAN Problem List Items Addressed This Visit Chronic diastolic heart failure (CMS/HCC) Interstitial lung disease (CMS/HCC) Acute pancreatitis Diabetic polyneuropathy associated with type 2 diabetes mellitus (CMS/HCC) - Primary Follow Up: 3 months or sooner prn Allergies Allergen Reactions Lisinopril Cough Morphine Current Outpatient Medications: albuterol 108 (90 Base) MCG/ACT inhaler, Inhale 2 puffs every 4 (four) hours if needed for wheezing., Disp: 18 g, Rfl: 11 amLODIPine (Norvasc) 10 MG tablet, TAKE 1 TABLET BY MOUTH EVERY MORNING, Disp: 90 tablet, Rfl: 3 aspirin (Aspirin Low Dose) 81 MG EC tablet, TAKE 1 TABLET BY MOUTH EVERY EVENING, Disp: 90 tablet, Rfl: 3 atorvastatin (Lipitor) 40 MG tablet, Take 1 tablet by mouth at bed time., Disp: , Rfl: benzonatate (Tessalon) 100 MG capsule, TAKE 1 CAPSULE BY MOUTH TWICE DAILY IN THE MORNING AND AT BEDTIME NEEDED FOR COUGH. DO NOT BREAK, CRUSH, DISSOLVE OR CHEW, Disp: 60 capsule, Rfl: 3 Blood Glucose Monitoring Suppl (FreeStyle Lite) device, Inject 1 each under the skin 2 times daily., Disp: 1 each, Rfl: 0 Blood Pressure Monitoring (Blood Pressure Cuff) [facility], Use to check your blood pressure daily, Disp:1 each, Rfl: 0 cyanocobalamin (Vitamin B-12) 1000 MCG tablet, TAKE 1 TABLET BY MOUTH EVERY MORNING, Disp: 90 tablet, Rfl: 3 D3 Super Strength 50 MCG (2000 UT) capsule, TAKE 1 CAPSULE BY MOUTH EVERY MORNING, Disp: 90 capsule, Rfl: 3 FREESTYLE LITE test strip, TEST BLOOD SUGAR TWICE DAILY, Disp: 100 strip, Rfl: 11 furosemide (Lasix) 20 MG tablet, Take 1 tablet by mouth 1 (one) time each day., Disp: , Rfl: gabapentin (Neurontin) 100 MG capsule, Take 2 capsules (200 mg) by mouth 2 times daily., Disp: 120 capsule, Rfl: 11 glipiZIDE XL (Glucotrol XL) 5 MG 24 hr tablet, TAKE 1 TABLET BY MOUTH EVERY MORNING (IF FASTING GLUCOSE IS >120), Disp: 90 tablet, Rfl: 3 ibuprofen 800 MG tablet, TAKE 1 TABLET BY MOUTH THREE TIMES DAILY, Disp: 90 tablet, Rfl: 1 losartan (Cozaar) 100 MG tablet, Take 1 tablet by mouth 1 (one) time each day., Disp: , Rfl: melatonin 5 MG tablet, TAKE 2 TABLETS BY MOUTH EVERY DAY AT BEDTIME, Disp: 180 tablet, Rfl: 1 metFORMIN XR (Glucophage-XR) 500 MG 24 hr tablet, TAKE 2 TABLETS BY MOUTH TWICE DAILY IN THE MORNING AND EVENING WITH MEALS, Disp: 360 tablet, Rfl: 3 metoprolol succinate XL (Toprol-XL) 100 MG 24 hr tablet, TAKE 1 AND 1/2 TABLETS BY MOUTH IN THE MORNING, Disp: , Rfl: mycophenolate (Cellcept) 500 MG tablet, Take 500 mg by mouth 2 times daily., Disp: , Rfl: Myrbetriq 25 MG 24 hr tablet, Take 25 mg by mouth in the morning., Disp: , Rfl: naloxone (Narcan) 4 mg/0.1 mL nasal spray, Administer 1 spray (4 mg) into affected nostril(s) if needed for opioid reversal. In 1 nostril, may repeat dose every 2-3 minutes as needed alternating nostrils with each dose, Disp: 2 each, Rfl: 2 Ofev 100 MG capsule, Take 1 capsule by mouth every 12 (twelve) hours., Disp: 60 capsule, Rfl: 0 omeprazole (PriLOSEC) [address] capsule, TAKE 1 CAPSULE BY MOUTH TWICE DAILY IN THE MORNING AND IN THE EVENING, Disp: , Rfl: ondansetron ODT (Zofran-ODT) 4 MG disintegrating tablet, 4 MG ORALLY EVERY 8 HOURS NEEDED FOR NAUSEA AND VOMITING FOR 30 DAYS, Disp: , Rfl: oxyCODONE-acetaminophen (Percocet) 5-325 MG tablet, Take 1 tablet by mouth every 8 (eight) hours ifneeded for severe pain for up to 28 days., Disp: 84 tablet, Rfl: 0 pancrelipase, Imb-Rsnm-Seiu, (Creon) 33283-26823 units capsule, Take 2 capsules by mouth 2 times daily., Disp: , Rfl: Simethicone Ultra Strength 180 MG capsule, Take 180 mg by mouth in the morning and at bedtime., Disp: , Rfl: sucralfate (Carafate) 1 g tablet, TAKE 2 TABLETS BY MOUTH EVERY DAY AT NOON, Disp: , Rfl: Symbicort 160-4.5 MCG/ACT inhaler, , Disp: , Rfl: traZODone (Desyrel) 50 MG tablet, , Disp: , Rfl: TRUEplus Lancets 33G misc, TEST BLOOD SUGAR TWICE DAILY, Disp: 100 each, Rfl: 11 Kinyarwanda Translation: Provided by [facility] staff member ALON Faulkner documented in this encounter Plan of Treatment Upcoming Encounters Date Type Department Care Team (Late st Contact Info) Description 06/25/2024 9:30 AM EDT Telemedicine [facility] [address] [place] [address] yTesha Lock RN documented as of this encounter Goals Goal Patient Goal Type Associated Problems Recent Progress Patient-Stated? Author Patient will adhere to medication regimen General No Genoveva Jones, BartD Hemoglobin A1c < 7.5 Result Component 6.3( 1:32 PM EST) No Genoveva Jones PharmD documented as of this encounter Visit Diagnoses Diagnosis Diabetic polyneuropathy associated with type 2 diabetes mellitus (CMS/HCC)- Primary Chronic diastolic heart failure (CMS/HCC) Chronic diastolic heart failure Interstitial lung disease (CMS/HCC) Postinflammatory pulmonary fibrosis Acute pancreatitis, unspecified complication status, unspecified pancreatitis type documented in this encounter Additional Health Concerns Assessment Noted Time PHQ-9 Depression Total Score: 0 07/03/19 24 10:52 AM EDT documented as of this encounter Care Teams Roll Weigher Relationship Specialty Start Date End Date Aarti Thacker MD [address] [place] [address] PCP - General Family Medicine 02/04/20 documented as of this encounter
--- OUTSIDE RECORDS SUMMARY | 2024-04-20 12:25 | XMS_ITS | Encounter Summary ---
Author Organization [employer] Address [address] [facility] [facility] [address] [place] [address] Care Team Providers Care Hydroelectric Operator Name Role Phone Aarti Thacker MD Primary Care Provider [phone] Encounter Details Date Type Department Care Team ([facility] st Contact Info) Description 04/05/2024 Telephone [facility] [address] [place], [place] [phone] Aarti Thacker MD [address] [place], [place] [phone] Social History Tobacco Use Types Packs/Day Years [...] Info) Description 06/25/2024 9:30 AM EDT Telemedicine [facility] [address] [place] [address] Tyesha Lock, RASHAUN documented as of this encounter Goals Goal Patient Goal Type Associated Problems Recent Progress Patient-Stated? Author Patient will adhere to medication regimen General No Yossis-Gambl Genoveva johnson, PharmD Hemoglobin A1c < 7.5 Result Component 6.3( 5 1:32 PM EST) No Yossis-Gambl Genoveva johnson, PharmD documented as of this encounter Visit Diagnoses Not on filedocumented in this encounter Additional Health Concerns Assessment Noted Time PHQ-9 Depression Total Score: 0 07/03/19 24 10:52 AM EDT documented as of this encounter Care Teams Hydroelectric Operator Relationship Specialty Start Date End Date Aarti Thacker MD [address] [place] [address] PCP - General Family Medicine 02/04/20 documented as of this encounter
--- OUTSIDE RECORDS SUMMARY | 2024-04-20 12:25 | XMS_ITS | Encounter Summary ---
Author Organization [employer] Address [address] [facility] [address] [place] [address] Care Team Providers Care Database Security Administrator Name Role Phone Aarti Thacker MD Primary Care Provider [phone] Reason for Visit * Reason Onset Date Comments Recommend SHREDDED FILLER CUTTER OPERATOR Tele Tier 2 04/09/2024 Encounter Details Date Type Department Care Team ([facility] st Contact Info) Description 04/09/2024 Telephone [facility] [address] [place], [place] [phone] Tyesha Lock RN Recommend SHREDDED FILLER CUTTER OPERATOR Tele Tier 2 Social History Tobacco Use Types Packs/Day Years [...] encounter Miscellaneous Notes * Telephone Encounter - Tyesha Lock RN - 04/09/2024 7:26 AM EST What SHREDDED FILLER CUTTER OPERATOR Tier would you like this patient to be? I recommend Tele Tier 2, please let me know if you agree or would rather patient be in another SHREDDED FILLER CUTTER OPERATOR Tier. Tier 1 = HIGH RISK, Monthly SHREDDED FILLER CUTTER OPERATOR visits Tier 2 = MODerate RISK, Q3 Month visits Tier 3 = LOW RISK = Q4-6 month visits documented in this encounter Plan of Treatment Upcoming Encounters Date Type Department Care Team (Late st Contact Info) Description 06/25/2024 9:30 AM EDT Telemedicine [facility] [address] [place] [id number] Tyesha Lock, RN documented as of this encounter Goals Goal Patient Goal Type Associated Problems Recent Progress Patient-Stated? Author Patient will adhere to medication regimen General No Piers-Gambl e, Genoveva, PharmD Hemoglobin A1c < 7.5 Result Component 6.3( 1:32 PM EST) No Yossis-Gambl eGenoveva, PharmD documented as of this encounter Visit Diagnoses Not on filedocumented in this encounter Additional Health Concerns Assessment Noted Time PHQ-9 Depression Total Score: 0 07/03/19 24 10:52 AM EDT documented as of this encounter Care Teams Database Security Administrator Relationship Specialty Start Date End Date Aarti Thacker MD [address] [place] [address] PCP - General Family Medicine 02/04/20 documented as of this encounter
--- OUTSIDE RECORDS SUMMARY | 2024-04-20 12:25 | XMS_ITS | Encounter Summary ---
Author Organization [employer] Address [address] [facility] [address] [place] [address] Care Team Providers Care Maintenance Planning Clerk Name Role Phone Aarti Thacker MD Primary Care Provider [phone] Reason for Visit * Reason Onset Date Comments Hospital Follow-up 03/11/2024 Encounter Details Date Type Department Care Team ([facility] st Contact Info) Description 03/11/2024 Telephone [facility]INE [address] [place], [place] [phone] Aarti Thacker MD [address] [place], [place] [phone] Hospital Follow-up Social History Tobacco Use Types Packs/Day Years [...] encounter Miscellaneous Notes * Telephone Encounter - Shin Hill - 03/11/2024 11:46 AM EST Tc from pt requesting a HDF appt. Hospital: [facility] Date of admission: 03/04/24 Discharge date: 03/09/24 Diagnosed: Pancarditis *Send message to [facility] Clinical Care Coordinators documented in this encounter Plan of Treatment Upcoming Encounters Date Type Department Care Team (Late st Contact Info) Description 06/25/2024 9:30 AM EDT Telemedicine [facility] MED[facility]INE [address] [place] [phone] Tyesha Lock, RN documented as of this encounter Goals Goal Patient Goal Type Associated Problems Recent Progress Patient-Stated? Author Patient will adhere to medication regimen General No Neto-Genoveva Keller, PharmD Hemoglobin A1c < 7.5 Result Component 6.3( 1:32 PM EST) No Genoveva Jones PharmD documented as of this encounter Visit Diagnoses Not on filedocumented in this encounter Additional Health Concerns Assessment Noted Time PHQ-9 Depression Total Score: 0 07/03/19 24 10:52 AM EDT documented as of this encounter Care Teams Maintenance Planning Clerk Relationship Specialty Start Date End Date Aarti Thacker MD [address] [place] [address] PCP - General Family Medicine 02/04/20 documented as of this encounter
--- OUTSIDE RECORDS SUMMARY | 2024-04-20 12:25 | XMS_ITS | Clinical Summary ---
Author Organization [employer] Address [address] [facility] [address] [place] [address] Care Team Providers Care Storage Management Consultant Name Role Phone Aarti Thacker MD Primary Care Provider [phone] Allergies Active Allergy Reactions Criticality Noted Date Comments Lisinopril Cough 09/05/2010 Morphine 02/07/2012 Medications atorvastatin (Lipitor) 40 MG tablet Take 1 tablet by mouth at bed time. Active furosemide (Lasix) 20 MG tablet Take 1 tablet by mouth 1 (one) time each day. Active losartan (Cozaar) 100 MG tablet Take 1 tablet by mouth 1 (one) time each day. Active albuterol 108 (90 Base) MCG/ACT inhalerIndication s:Interstitial lung disease (CMS/HCC) Inhale 2 puffs every 4 (four) hours if needed for wheezing. 18 g 11 Active Blood Pressure Monitoring (Blood Pressure Cuff) miscIndications:B enign hypertension Use to check your blood pressure daily 1 each Active Symbicort 160-4.5 MCG/ACT inhaler Active omeprazole (PriLOSEC) [address] capsule TAKE 1 CAPSULE BY MOUTH TWICE DAILY IN THE MORNING AND IN THE EVENING Active Simethicone Ultra Strength 180 MG capsule Take 180 mg by mouth in the morning and at bedtime. Active traZODone (Desyrel) 50 MG tablet Active mycophenolate (Cellcept) 500 MG tablet Take 500 mg by mouth 2 times daily. Active Blood Glucose Monitoring Suppl (FreeStyle Lite) device Inject 1 each under the skin 2 times daily. 1 each 023 Active naloxone (Narcan) 4 mg/0.1 mL nasal sprayIndications: Chronic pain syndrome Administer 1 spray (4 mg) into affected nostril(s) if needed for opioid reversal. In 1 nostril, may repeat dose every 2-3 minutes as needed alternating nostrils with each dose 2 each 2 023 Active Myrbetriq 25 MG 24 hr tablet Take 25 mg by mouth in the morning. 023 Active metoprolol succinate XL (Toprol-XL) 100 MG 24 hr tablet TAKE 1 AND 1/2 TABLETS BY MOUTH IN THE MORNING 023 Active FREESTYLE LITE test stripIndications: Type 2 diabetes mellitus with hyperglycemia, without long-term current use of insulin ([facility]) TEST BLOOD SUGAR TWICE DAILY 100 strip 11 Active TRUEplus Lancets 33G miscIndications:T ype 2 diabetes mellitus with hyperglycemia, without long-term current use of insulin ([facility]) TEST BLOOD SUGAR TWICE DAILY 100 each 11 024 Active amLODIPine (Norvasc) 10 MG tabletIndications :Essential (primary) hypertension TAKE 1 TABLET BY MOUTH EVERY MORNING 90 tablet 3 024 Active sucralfate (Carafate) 1 g tablet TAKE 2 TABLETS BY MOUTH EVERY DAY AT NOON 024 Active glipiZIDE XL (Glucotrol XL) 5 MG 24 hr tabletIndications :Type 2 diabetes mellitus with hyperglycemia, without long-term current use of insulin ([facility]) TAKE 1 TABLET BY MOUTH EVERY MORNING (IF FASTING GLUCOSE IS >120) 90 tablet 3 024 Active benzonatate (Tessalon) 100 MG capsule TAKE 1 CAPSULE BY MOUTH TWICE DAILY IN THE MORNING AND AT BEDTIME NEEDED FOR COUGH. DO NOT BREAK, CRUSH, DISSOLVE OR CHEW 60 capsule 3 024 Active D3 Super Strength 50 MCG (2000 UT) capsule TAKE 1 CAPSULE BY MOUTH EVERY MORNING 90 capsule 3 024 Active metFORMIN XR (Glucophage-XR) 500 MG 24 hr tablet TAKE 2 TABLETS BY MOUTH TWICE DAILY IN THE MORNING AND EVENING WITH MEALS 360 tablet 3 024 Active ondansetron ODT (Zofran-ODT) 4 MG disintegrating tablet 4 MG ORALLY EVERY 8 HOURS NEEDED FOR NAUSEA AND VOMITING FOR 30 DAYS Active pancrelipase, Aqo-Slwn-Thov, (Creon) 55021-38348 units capsule Take 2 capsules by mouth 2 times daily. Active ibuprofen 800 MG tablet TAKE 1 TABLET BY MOUTH THREE TIMES DAILY 90 tablet 1 Active cyanocobalamin (Vitamin B-12) 1000 MCG tablet TAKE 1 TABLET BY MOUTH EVERY MORNING 90 tablet 3 024 Active gabapentin (Neurontin) 100 MG capsuleIndication s:Diabetic polyneuropathy associated with type 2 diabetes mellitus (CMS/HCC) Take 2 capsules (200 mg) by mouth 2 times daily. 120 capsule 11 024 2024 Active aspirin (Aspirin Low Dose) 81 MG EC tablet TAKE 1 TABLET BY MOUTH EVERY EVENING 90 tablet 3 024 Active melatonin 5 MG tablet TAKE 2 TABLETS BY MOUTH EVERY DAY AT BEDTIME 180 tablet 1 Active Ofev 100 MG capsule Take 1 capsule by mouth every 12 (twelve) hours. 60 capsule 025 Active oxyCODONE-acetami nophen (Percocet) 5-325 MG tabletIndications :DISH (diffuse idiopathic skeletal hyperostosis) Take 1 tablet by mouth every 8 (eight) hours if needed for severe pain for up to 28 days. 84 tablet 025 2024 Active Blood Glucose Monitoring Suppl (FreeStyle [place] Lite) w/Device kit USE DIRECTED TO TEST BLOOD SUGAR TWICE DAILY 023 2024 Discontinued(M ed list cleanup (will not trigger notification to Pharmacy)) Januvia 50 MG tabletIndications :Type 2 diabetes mellitus with hyperglycemia (CMS/HCC) TAKE 1 TABLET BY MOUTH EVERY MORNING 90 tablet 3 024 2024 Discontinued Ofev 150 MG capsule 024 2024 Discontinued(M ed list cleanup (will not trigger notification to Pharmacy)) oxyCODONE-acetami nophen (Percocet) 5-325 MG tabletIndications :DISH (diffuse idiopathic skeletal hyperostosis) Take 1 tablet by mouth every 8 (eight) hours if needed for severe pain for up to 28 days. Do not start before March 12, 2024. 84 tablet 024 2024 Discontinued(R eorder (will not trigger notification to Pharmacy)) Ofev 100 MG capsule Take 1 capsule by mouth every 12 (twelve) hours. 024 2024 Discontinued(R eorder (will not trigger notification to Pharmacy)) oxyCODONE-acetami nophen (Percocet) 5-325 MG tabletIndications :DISH (diffuse idiopathic skeletal hyperostosis) Take 1 tablet by mouth every 8 (eight) hours if needed for severe pain for up to 28 days. Do not start before April 12, 2024. 84 tablet 025 2024 Discontinued(R eorder (will not trigger notification to Pharmacy)) Active Problems Problem Noted Date Diagnosed Date Diabetic polyneuropathy asso ciated with type 2 diabetes mellitus 04/13/2024 Acute pancreatitis 03/30/2024 Assessment & Plan (03/30/2024 2:19 PM EST): Improving physical exam is benign Extensive counseling about slowly progressing her diet done ED precautions reviewed with patient (if pain persist or worse, if not tolerating PO call EMS or go [facility] to emergency room) Fatty liver 07/16/2023 Assessment & Plan (07/16/2023 10:54 AM EDT): Last monitoring for cirrhosis 05/[address], will do US DISH (diffuse idiopathic skeletal hyperostosis) 07/06/2023 Assessment & Plan (12/03/2023 2:12 PM EDT): Follow-up after seeing ortho rheum Consider discussion of changing opioids meds after she meets with all of her specialists Continue Percocet three times daily for now Assessment & Plan (07/16/2023 10:55 AM EDT): Increase Gabapentin Increase Percocet to four times daily instead of three times daily Will refer to ortho and rheum for treatment recommendations Post menopausal syndrome 01/10/2023 Assessment & Plan (01/10/2023 11:49 AM EDT): DEXA ordered Chronic bilateral low back pain with left-sided sciatica 01/10/2023 Assessment & Plan (01/10/2023 11:52 AM EDT): On Percocet 5/325 three times daily K[facility] FEEDER agreement in place and pt understands risks and benefits of medication Feels back pain is worsening, and radiating into hip and down leg Will obtain DEXA (age > 65, post menopause, and retirement steroid use) and disposition to rheum/ortho after those results Acute pain of right shoulder 06/07/2022 Assessment & Plan (06/07/2022 9:53 AM EDT): Naproxen twice a day as needed Interstitial lung disease 03/18/2022 Assessment & Plan (07/06/2023 5:27 PM EDT): Labs for connective tissue disease all negative Taking prednsione 10mg daily and Cellcept 1000mg daily Continue Cellcept 1000mg BID, then decrease prednisone Consider OFEV if disease is worsening Tessalon for cough CT scans q 6months to monitor for disease progression and need for anti-fibrotic agents followup with pulmonology PAP study ordered Assessment & Plan (01/10/2023 11:48 AM EDT): Labs for connective tissue disease all negative Taking prednsione 10mg daily and Cellcept 1000mg daily INCREASE Cellcept to BID 1000mg, then decrease prednisone Consider OFEV if disease is worsening Tessalon for cough CT scans q 6months to monitor for disease progression and need for anti-fibrotic agents followup with pulmonology PAP study ordered Assessment & Plan (09/03/2022 9:32 AM EDT): Labs for connective tissue disease all negative Taking prednsione 10mg daily and Cellcept 500mg BID Tessalon for cough CT scans q 6months to monitor for disease progression and need for anti-fibrotic agents followup with pulmonology Night-time oxygen study Assessment & Plan (06/07/2022 9:51 AM EDT): Labs for connective tissue disease all negative Taking prednsione 10mg daily Repeat CT chest in 3 months to watch for progression of disease Doing pulm rehab twice a week followup with pulmonology Night-time oxygen study Assessment & Plan (03/18/2022 5:48 PM EST): Labs for connective tissue disease followup with pulmonology Night-time oxygen study Obstructive sleep apnea 03/18/2022 Obesity 03/18/2022 Renal cyst 02/05/2022 Abnormal colonoscopy 12/08/2020 Assessment & Plan (06/07/2022 9:54 AM EDT): In 10/2020 Due for repeat in 5 years Pulmonary arterial hypertension 02/01/2020 Assessment & Plan (06/07/2022 9:51 AM EDT): Monitored by pulm and cards Doing cardiopulm rehab right now Chronic diastolic heart failure 10/29/2019 Assessment & Plan (07/06/2023 5:27 PM EDT): Continue diuretics Coronary arteriosclerosis 10/29/2019 Peripheral venous insufficiency 10/29/2019 Tricuspid valve incompetence, non-rheumatic 09/22 Abdominal pain 07/22/2016 Female stress incontinence 07/22/2016 Assessment & Plan (06/07/2022 9:52 AM EDT): Need incontinence pads and wipes Trigger finger 08/21/2012 Adjustment disorder 07/24/2012 Onychomycosis 06/02/2012 Dizziness 04/24/2012 Tinea pedis 02/07/2012 Abnormal mammogram 01/17/2012 Hypercholesterolemia 09/17/2010 Gastroesophageal reflux disease 01/28/2010 Left ventricular hypertrophy 05/28/2009 Essential hypertension 02/27/2005 Assessment & Plan (03/30/2024 2:18 PM EST): Patient forgot to take her blood pressure medication today , I advise not to miss any dose f/u with PCP Assessment & Plan (01/10/2023 11:53 AM EDT): Continue current medication regimen Check BP daily Low NA diet, less than 2gm daily 30 minutes of moderate exercise most days of the week Assessment & Plan (09/03/2022 9:31 AM EDT): Continue current medication regimen Check BP daily Low NA diet, less than 2gm daily 30 minutes of moderate exercise most days of the week Assessment & Plan (03/18/2022 5:48 PM EST): Continue current medication regimen Check BP daily Low NA diet 30 minutes of moderate exercise most days of the week Proteinuria 10/28/2004 Type 2 diabetes mellitus wit h hyperglycemia, without long-term current use of insulin Assessment & Plan (03/30/2024 2:21 PM EST): Today I discontinue her januvia C/w metformin A1c is 6.3%, I did not add for now another medication, f/u with PCP for further decisions Assessment & Plan (12/03/2023 2:11 PM EDT): DM2 controlled - Meeting goal A1C of <7% recommended by ADA 2018 standards of care - A1C 6.4 - ASCVD: > 10% - Last monofilament exam: 01/2022 _ Last eye exam: due - Screening labs: UTD - Preventative visits needed: dilated eye exam (annually), dental (annually). - Vaccines needed: RSV, zoster, Td - Medication changes: none - Side effects of meds: none noted Assessment & Plan (07/06/2023 5:28 PM EDT): DM2 controlled - Meeting goal A1C of <7% recommended by ADA 2018 standards of care - A1C 6.1 - ASCVD: > 10% - Last monofilament exam: 01/2022 _ Last eye exam: due - Screening labs: UTD - Preventative visits needed: dilated eye exam (annually), dental (annually). - Vaccines needed: RSV, zoster, Td - Medication changes: none - Side effects of meds: none noted Assessment & Plan (01/10/2023 11:51 AM EDT): DM2 controlled - Meeting goal A1C of <7% recommended by ADA 2018 standards of care - A1C 6.6 - ASCVD: > 10% - Last monofilament exam: 01/2022 _ Last eye exam: overdue, recommend calling to schedule independently - Screening labs: A1C (3-6 months), BMP (albumin to creatinine ratio annually), Urine microalbumin, ordered - Preventative visits needed: dilated eye exam (annually), dental (annually). - Vaccines needed: Flu, Td, zoster - Medication changes: none - Side effects of meds: none noted ? Assessment & Plan (09/03/2022 9:31 AM EDT): DM2 controlled - Meeting goal A1C of <7% recommended by ADA 2018 standards of care - A1C 7.0 - ASCVD: > 10% - Last monofilament exam: 01/2022 _ Last eye exam: overdue - Screening labs: A1C (3-6 months), BMP (albumin to creatinine ratio annually), Urine microalbumin, ordered - Preventative visits needed: dilated eye exam (annually), dental (annually). - Vaccines needed: PCV23, zoster - Medication changes: none - Side effects of meds: none noted - F/u in 3 months ? Assessment & Plan (06/07/2022 9:54 AM EDT): DM2 not controlled - Not meeting goal A1C of <7% recommended by ADA 2018 standards of care - A1C 7.7 - ASCVD: > 10% - Last monofilament exam: 01/2022 _ Last eye exam: overdue - Screening labs: A1C (3-6 months), BMP (albumin to creatinine ratio annually), Urine microalbumin, ordered - Preventative visits needed: dilated eye exam (annually), dental (annually). - Vaccines needed: PCV23, zoster - Medication changes: restart Glipizide, continue Januvia and Metformin - Side effects of meds: none noted - F/u in 3 ? Assessment & Plan (03/18/2022 5:47 PM EST): DM2 not controlled - Not meeting goal A1C of <7% recommended by ADA 2018 standards of care - A1C 68.0 - ASCVD: > 10% - Last monofilament exam: today, normal _ Last eye exam: overdue - Screening labs: A1C (3-6 months), BMP (albumin to creatinine ratio annually), Urine microalbumin, ordered - Preventative visits needed: dilated eye exam (annually), dental (annually). - Vaccines needed: flu, PCV13, zoster - Medication changes: continue Januvia and Metformin, restart Glipizide if continued increase - Side effects of meds: none noted - F/u in 3-6 months. ? Encounters Date Type Department Care Team Description 04/13/2024 11:00 AM EST Office Visit [facility] [address] [place] [address] Aarti Thacker MD Diabetic polyneuropathy associated with type 2 diabetes mellitus (CMS/HCC) (Primary Dx); Chronic diastolic heart failure (CMS/HCC); Interstitial lung disease (CMS/HCC); Acute pancreatitis, unspecified complication status, unspecified pancreatitis type 04/13/2024 Travel 04/09/2024 9:00 AM EST Telemedicine [facility] [place] [address] Tyesha Lock RN Chronic pain syndrome 04/09/2024 Refill [facility] [address] [place] [phone] Tyesha Lock RN DISH (diffuse idiopathic skeletal hyperostosis) 04/09/2024 Travel 04/09/2024 Telephone [facility] [place] [address] Tyesha Lock RN Recommend [facility] Tele Tier 2 04/08/2024 Refill [facility] [address] [place] [address] Aarti Thacker MD 04/08/2024 Refill [facility] [address] [place] [address] Aarti Thacker MD DISH (diffuse idiopathic skeletal hyperostosis) 04/05/2024 Telephone [facility] [address] [place] [phone] Aarti Thacker MD 03/30/2024 1:15 PM EST Office Visit [facility] [address] [place] [address] Renae Sandhu MD Acute pancreatitis without infection or necrosis, unspecified pancreatitis type (Primary Dx); Type 2 diabetes mellitus with hyperglycemia, without long-term current use of insulin ([facility]/HCC); Essential hypertension 03/30/2024 Travel 03/11/2024 Patient Outreach [facility] [address] [place] [phone] Aarti Thacker MD Transition Of Care (Tcm) (HDF- scheduled and SDOH screening on 07/03/2023) 03/11/[address] [address] Aarti Thacker MD Hospital Follow-up 03/11/2024 Refill [facility] [address] [place] [phone] Aarti Thacker MD DISH (diffuse idiopathic skeletal hyperostosis) 03/04/2024 Orders Only GENERIC EXTERNAL DATA DEPARTMENT Provider, Generic External Data 02/25/2024 Refill [facility] [address] [place], [place] [phone] Aarti Thacker MD 02/13/2024 Patient Outreach [address] [address] Aarti Thacker MD Pre-visit Planning (SDOH screening completed on 07/03/2023) 02/12/2024 Refill [facility] [address] [place], [place] [phone] Aarti Thacker MD DISH (diffuse idiopathic skeletal hyperostosis) 01/23/2024 10:00 AM EDT Telemedicine [address] [address] Tyesha Lock RN Chronic pain syndrome 01/23/2024 Travel from Last 3 Months Immunizations Name Administration Dates Next Due Hep B, adult 12/21/2002,07/16/2002,06/16/2002 Influenza High-dose Quadriva lent Preservative Free 12/24/2021 Influenza injectable quadriv alent IIV4 with preservative 01/24/2017,04/05/2016 Influenza injectable quadriv alent preservative free 12/30/2018,03/10/2018,02/06/2015 Influenza, IIV3, injectable 01/21/2014, 5 Influenza, Split (incl. emily fied surface antigen) 12/24/2012,02/07/2012 Influenza, trivalent, adjuvanted 12/17/2023 MMR 12/21/2002 Moderna Covid-19 Vaccine 12+ 02/14/2021,06/16/19 21,05/18/2020 Pneumococcal Conjugate PCV 20 12/20/2022 Pneumococcal Polysaccharide PPSV23 03/08/2005 TD (adult), 2 Lf tetanus tox oid, preservative free, adsorbed 11/12/2002 Tdap 04/08/2012 Zoster, live 02/06/2015 Social History Tobacco Use Types Packs/Day Years [...] Orientation Straight 01/21/2022 10 :17 AM EDT Last Filed Vital Signs Vital Sign Reading Time Taken Comments Blood Pressure 146/82 04/13/2024 10:42 AM EST Pulse 76 04/13/2024 10:42 AM EST Temperature 36.3 ??C (97.3 ??F) 04/13/2024 10:[address] Respiratory Rate 16 04/13/2024 10:42 AM EST Oxygen Saturation 98% 03/30/2024 1:29 PM EST Inhaled Oxygen Concentration - - Weight 72.6 kg (160 lb) 04/13/2024 10:42 AM EST Height 152.4 cm (5') 04/13/2024 10:42 AM EST Body Mass Index 31.25 04/13/2024 10:42 AM EST Plan of Treatment Upcoming Encounters Date Type Department Care Team (Late st Contact Info) Description 06/25/2024 9:30 AM EDT Telemedicine [facility] [address] [place] [phone] Tyesha Lock, RN Health Maintenance Due Date Last Done Comments CT Colonography 1950 FIT DNA/Cologuard 1950 FIT 1950 FOBT 1950 Sigmoidoscopy 1950 Diabetes: Foot Exam 1962 Eye Exam 1962 Hepatitis A Vaccines (1 of 2 - Risk 2-dose series) 1971 RSV Patients and Patients Aged 60 years or older (1 - Risk 60-74 years 1-dose series) 2012 Zoster Vaccines (1 of 2) 04/03/2015 02/06/2015 DTaP/Tdap/Td Vaccines (2 - Td or Tdap) 04/08/2022 04/08/2012, 11/12/2002 COVID-19 Vaccine ( season) 2024 12/17/2023, 12/24/2021, 02/14/2021, Additional history exists Alcohol/Substance Use Screening 07/02/2024 07/03/2023 Depression Screening 07/02/2024 07/03/2023, 07/03/19 Diabetes: Urine Protein Screening 07/02/2024 07/03/2023, 03/26/2021 Lipid Panel 07/02/2024 07/03/2023, 03/26/2021 SDOH Screening 07/02/2024 07/03/2023 Diabetes: Hemoglobin A1C 09/27/2024 025, 12/01/2023, 07/03/2023, Additional history exists Mammogram 10/15/2024 10/16/2023, 09/21, 08/14/2021, Additional history exists Tobacco Screening 04/13/2025 04/13/2024 Colonoscopy 12/22/2025 12/22/2020 Colorectal Cancer Screening 12/22/2025 Hepatitis B Vaccines Completed 12/21/2002, 07/16/2002, 06/16/2002 Pneumococcal Vaccine: 65+ Years Completed 12/20/2022, 03/08/2005 Hepatitis C Screening Completed 07/03/2023 Influenza Vaccine Completed 12/17/2023, , 12/30/2018, Additional history exists HIB Vaccines Aged Out No longer eligi ble based on patient's age to complete this topic HPV Vaccines Aged Out No longer eligi ble based on patient's age to complete this topic IPV Vaccines Aged Out No longer eligi ble based on patient's age to complete this topic Meningococcal Vaccine Aged Out No denise hanna eligible based on patient's age to complete this topic RSV under 20 months Aged Out No longe r eligible based on patient's age to complete this topic Rotavirus Vaccines Aged Out No longer eligible based on patient's age to complete this topic Goals Goal Patient Goal Type Associated Problems Recent Progress Patient-Stated? Author Patient will adhere to medication regimen General No Genoveva Jones PharmD Hemoglobin A1c < 7.5 Result Component 6.3( 1:32 PM EST) No Genoveva Jones PharmD Procedures Procedure Name Priority Date/Time Associated Diagnosis Comments POCT GLYCATED HEMOGLOBIN, TOTAL Routine 03/30/2024 1:32 PM EST Type 2 diabetes mellitus with hyperglycemia, without long-term current use of insulin (CMS/HCC) POCT GLUCOSE Routine 03/30/2024 1:32 PM EST Type 2 diabetes mellitus with hyperglycemia, without long-term current use of insulin (CMS/HCC) MR ABDOMEN W AND WO CONTRAST Routine 03/07/2024 11:[address] ABDOMEN PELVIS WO CONTRAST Routine 03/04/2024 7:02 PM EST URINALYSIS WITH REFLEX MICROSCOPIC Routine 03/04/2024 2:46 PM EST XR CHEST 2 VIEWS Routine 03/04/2024 2:25 PM EST HIGH SENSITIVITY TROPONIN I Routine 03/04/2024 1:50 PM EST LIPASE Routine 03/04/2024 1:50 PM EST MAGNESIUM Routine 03/04/2024 1:50 PM EST COMPREHENSIVE METABOLIC PANEL Routine 03/04/2024 1:50 PM EST CBC WITH AUTO DIFFERENTIAL Routine 03/04/2024 1:50 PM EST HOLD LT BLUE - POSSIBLE COAG Routine 03/04/2024 1:50 PM EST BI MAMMOGRAM SCREENING TOMOSYNTHESIS BILATERAL Routine 10/16/2023 9:14 AM EDT HEPATITIS C AB W/REFL TO HCV RNA, QN, PCR Routine 07/03/2023 12:00 PM EDT Type 2 diabetes mellitus with hyperglycemia, without long-term current use of insulin (CMS/HCC) ALBUMIN, RANDOM URINE W/CREATININE Routine 07/03/2023 12:00 PM EDT Type 2 diabetes mellitus with hyperglycemia, without long-term current use of insulin (CMS/HCC) LIPID PANEL, STANDARD Routine 07/03/2023 12:00 PM EDT Type 2 diabetes mellitus with hyperglycemia, without long-term current use of insulin ([facility]) COLONOSCOPY Routine 12/22/2020 from Last 3 Months or Most Recently Relevant to Health Maintenance Results * (ABNORMAL) POCT HGB A1C (03/30/2024 1:32 PM EST) Hemoglobin A1C 6.3(A) 4.0 - 6.0 % QC Media Lot # [id number] Lot# Expiration Date [id number] Blood 03/30/2024 1:32 PM EST Renae Fuller MD POINT OF CARE TEST EN TER/EDIT ORDERABLES Final Result * POCT Glucose (03/30/2024 1:32 PM EST) Glucose Blood, POC 88 60 - 200 mg/dL Blood Capillary blood specimen / Unknown 03/30/2024 1:32 PM EST Renae Fuller MD POINT OF CARE TEST EN TER/EDIT ORDERABLES Final Result * MR Abdomen w/ and w/o Contrast (03/07/2024 11:31 AM EST) Anatomical Region Laterality Modality Abdomen Magnetic Resonan ce 03/07/2024 11:3 1 AM EST Narrative 03/09/2024 1:39 PM EST ? [facility] ?[address] ?[place] [address] ? Magnetic Resonance Report ? Signed ? Patient: Luis Angel Lisbeth,Snehal L ?MR#: ?? [id number] ? : 1950 ?Acct:[id number] ? Age/Sex: 73 / F ?ADM Date: 12/13/24 ? Loc: HO.S3 ?360-1 ? Attending Dr: Earle Gan MD ? Ordering Physician: Keyur Alfred MD ?? Date of Service: 03/07/24 ?? Procedure(s): MR abdomen wo/w con ?? Accession Number(s): [id number] ? cc: Aarti Thacker; Keyur Alfred MD ? EXAMINATION: ?? MR ABDOMEN WITHOUT AND WITH CONTRAST ? CLINICAL INFORMATION: ?? Rule out pancreatic malignancy ? COMPARISON: ?? CT abdomen and pelvis 03/04/2024 ? TECHNIQUE: ?? MR abdomen was performed without and with use of 7 mL intravenous ?? Gadavist gadolinium contrast. Postcontrast images are performed in ?? multiphase dynamic sequences. ??Imaging was performed in 3 planes. ? FINDINGS: ? LUNG BASES: Trace bilateral pleural effusions. ? LIVER, GALLBLADDER, AND BILIARY TREE: Liver demonstrates normal size, ?? signal intensity and surface contour. No hepatic steatosis. No focal ?? hepatic lesion. The gallbladder is surgically absent. Mild prominence ?? of the central intrahepatic bile ducts. The common bile duct is dilated ?? measuring 1.1 cm in diameter, similar to prior ultrasound. No filling ?? defects in the course of CBD to suggest choledocholithiasis. Trace ?? perihepatic fluid. ? PANCREAS: Mild interstitial edema of the distal body of the pancreas, ?? 8:24 with mild surrounding fat stranding better evaluated on recent CT. ?? No suspicious pancreatic mass. No ductal dilation. ? SPLEEN: Normal in size. No enhancing focal lesion. ? ADRENAL GLANDS: Unremarkable. ? KIDNEYS AND URETERS: Symmetric nephrograms. No hydronephrosis. Simple ?? cyst in the lateral midpole of the right kidney, for which no dedicated ?? follow-up imaging is required. ? GASTROINTESTINAL TRACT: Included bowel loops are nondilated. ? ABDOMINAL WALL: No significant hernia is appreciated. ? LYMPH NODES: No enlarged abdominal lymph nodes. ? VASCULAR: The abdominal aorta is normal in caliber. ? OSSEOUS STRUCTURES: No acute or suspicious osseous abnormality. ?? Degenerative changes of the thoracic spine. ? MR/MR abdomen wo/w con ?? IMPRESSION: ?? 1. ??Mild edema involving the distal body of the pancreas with ?? surrounding fat stranding again concerning for acute pancreatitis in ?? the appropriate clinical context. No suspicious pancreatic mass. No ?? pancreatic ductal dilation. If there is persistent clinical concern for ?? an underlying mass, follow-up imaging can be considered after ?? resolution of acute episode of pancreatitis. ?? 2. ??Status post cholecystectomy. Stable chronic dilatation of the ?? common bile duct. No findings to suggest choledocholithiasis. ?? 3. ??Trace bilateral pleural effusions. ? Electronically signed by: ??Wolfgang Zaina MD ??03/09/2024 01:36 PM EST ? Dictated By: ?Achanaril,Wolfgang ? Signed By: ?<Electronically signed by Wolfgang Achabrahanritere in OV> ?03/09/24 1336 ? DD/ 1131 ? TD/TT: 03/07/24 1151 ? Popcorn Machine Operator: ? Procedure Note Donotclaireinterpreter, Image - 03/09/2024 [place] [address] Magnetic Resonance Report Signed Patient: Snehal Ryan LMR#: [id number] : 1950cct:[id number] Age/Sex: 73 / FADM Date: 03/05/24 Loc: .S3 360-[address]: Earle Gan MD Ordering Physician: Keyur Alfred MD Date of Service: 03/07/24 Procedure(s): MR abdomen wo/w con Accession Number(s): [id number] cc: Aarti Thacker; Keyur Alfred MD EXAMINATION: MR ABDOMEN WITHOUT AND WITH CONTRAST CLINICAL INFORMATION: Rule out pancreatic malignancy COMPARISON: CT abdomen and pelvis 03/04/2024 TECHNIQUE: MR abdomen was performed without and with use of 7 mL intravenous Gadavist gadolinium contrast. Postcontrast images are performed in multiphase dynamic sequences. Imaging was performed in 3 planes. FINDINGS: LUNG BASES: Trace bilateral pleural effusions. LIVER, GALLBLADDER, AND BILIARY TREE: Liver demonstrates normal size, signal intensity and surface contour. No hepatic steatosis. No focal hepatic lesion. The gallbladder is surgically absent. Mild prominence of the central intrahepatic bile ducts. The common bile duct is dilated measuring 1.1 cm in diameter, similar to prior ultrasound. No filling defects in the course of CBD to suggest choledocholithiasis. Trace perihepatic fluid. PANCREAS: Mild interstitial edema of the distal body of the pancreas, 8:24 with mild surrounding fat stranding better evaluated on recent CT. No suspicious pancreatic mass. No ductal dilation. SPLEEN: Normal in size. No enhancing focal lesion. ADRENAL GLANDS: Unremarkable. KIDNEYS AND URETERS: Symmetric nephrograms. No hydronephrosis. Simple cyst in the lateral midpole of the right kidney, for which no dedicated follow-up imaging is required. GASTROINTESTINAL TRACT: Included bowel loops are nondilated. ABDOMINAL WALL: No significant hernia is appreciated. LYMPH NODES: No enlarged abdominal lymph nodes. VASCULAR: The abdominal aorta is normal in caliber. OSSEOUS STRUCTURES: No acute or suspicious osseous abnormality. Degenerative changes of the thoracic spine. MR/MR abdomen wo/w con IMPRESSION: 1. Mild edema involving the distal body of the pancreas with surrounding fat stranding again concerning for acute pancreatitis in the appropriate clinical context. No suspicious pancreatic mass. No pancreatic ductal dilation. If there is persistent clinical concern for an underlying mass, follow-up imaging can be considered after resolution of acute episode of pancreatitis. 2. Status post cholecystectomy. Stable chronic dilatation of the common bile duct. No findings to suggest choledocholithiasis. 3. Trace bilateral pleural effusions. Electronically signed by: Wolfgang Mahajan MD 03/09/2024 01:36 PM EST Dictated By: Wolfgang Mahajan Signed By: <Electronically signed by Wolfgang Mahajan in OV> 03/09/24 1336 DD/ 1131 TD/TT: 03/07/24 1151 Popcorn Machine Operator: [facility] External Provider IMG MRI PROCEDURES Final Result * CT Abdomen Pelvis w/o Contrast (03/04/2024 7:02 PM EST) Anatomical Region Laterality Modality Body, Pelvis, Abdomen Computed T omography 03/04/2024 7:02 PM EST Narrative 03/05/2024 2:24 AM EST ? [facility] ?[address] ?[place] [address] ? CT Scan Report ? Signed ? Patient: Luis Angel Lisbeth,Snehal L ?MR#: ?? [id number] ? : 1950 ?Acct:[id number] ? Age/Sex: 73 / F ?ADM Date: 03/05/24 ? Loc: HO.S3 ?360-1 ? Attending Dr: Keyur Alfred MD ? Ordering Physician: Omar Mast ?? Date of Service: 03/04/24 ?? Procedure(s): CT abdomen pelvis wo IV con ?? Accession Number(s): [id number] ? cc: Aarti Thacker; Omar Mast ? EXAMINATION: ?? CT ABDOMEN AND PELVIS WITHOUT CONTRAST ? CLINICAL INFORMATION: ?? Left-sided abdominal pain. ? COMPARISON: ?? Abdominal ultrasound from 08/01/2023. CT abdomen and pelvis from ?? 09/25/2021. ? TECHNIQUE: ?? Multidetector volumetric imaging was performed from the lung bases to ?? the pubic without contrast. Sagittal and coronal reformatted images ?? were obtained on the technologist workstation. ? This CT examination was performed using dose optimization techniques as ?? appropriate, variously including the following: ?? *Automated exposure control. ?? *Adjustment of mA and/or kV according to patient size (this includes ?? techniques or standardized protocols for targeted exams where dose is ?? matched to indication/reason for exam; i.e. extremities or head). ?? *Use of iterative reconstruction technique. ? DLP: 585 mGy-cm ? FINDINGS: ?? LUNG BASES: ?? Mildly increased subpleural reticulation in the visualized lung bases. ?? Otherwise, no abnormalities of the visualized lung bases. Moderate ?? coronary artery calcifications. No demonstrated abnormalities of the ?? visualized cardiac structures. ? ABDOMEN/PELVIS: ?? Liver, Biliary Ducts, and Gallbladder: ?? The unenhanced liver is normal in size and attenuation without focal ?? hepatic lesions or biliary ductal dilatation. The gallbladder is ?? physiologically distended without radiopaque gallstones, ?? pericholecystic fluid, or significant gallbladder wall thickening. ? Pancreas: ?? Moderate fatty atrophy of the pancreatic head. Moderate fat stranding ?? surrounding the pancreatic body and tail. No overtly demonstrated ?? discrete collection or soft tissue mass. ? Adrenal Glands: ?? The adrenal glands are normal in appearance. ? Spleen: ?? The spleen is normal in appearance. ? Kidneys and Ureters: ?? The unenhanced kidneys are normal in size without evidence of ?? nephrolithiasis or hydronephrosis. No ureterolithiasis or hydroureter. ? Urinary Bladder: ?? The urinary bladder is partially distended without focal wall ?? thickening. No bladder calculi are demonstrated. ? Gastrointestinal System: ?? The stomach is decompressed and therefore not well evaluated on this ?? exam. The small bowel is of normal caliber. Moderate sigmoid ?? diverticulosis without evidence of diverticulitis. Otherwise, the colon ?? is normal in appearance without focal wall thickening or pericolonic ?? inflammatory change. Normal appendix. ? Genitourinary: ?? No demonstrated adnexal soft tissue masses. ? Intra-abdominal and Retroperitoneal Spaces: ?? Prior lower anterior abdominal wall surgery. No intra-abdominal free ?? fluid collections or gas. No mesenteric, retroperitoneal, or inguinal ?? lymphadenopathy. ? VASCULATURE: ?? The abdominal aorta is of normal contour and caliber with moderate ?? calcific atherosclerotic disease. ? MUSCULOSKELETAL: ?? Mild to moderate multilevel degenerative changes of the spine. No lytic ?? or sclerotic osseous lesions demonstrated. No soft tissue masses ?? demonstrated. ? CT/CT abdomen pelvis wo IV con ?? IMPRESSION: ?? 1. ??Moderate fat stranding surrounding the pancreatic body and tail ?? potentially indicating acute interstitial edematous pancreatitis. No ?? demonstrated peripancreatic fluid collection. Recommend correlation ?? with pancreatic serum markers. ?? 2. ??Diverticulosis without evidence of diverticulitis. ? Electronically signed by: ??Liam Mi DO ??03/05/2024 02:20 AM EST RP ? Dictated By: ?Chapincito Mi DO ? Signed By: ?<Electronically signed by Chapincito Mi DO in OV> ? 03/05/24 0220 ? DD/ 01 ? TD/TT: 03/04/24 190 ? Popcorn Machine Operator: JL ? Procedure Note Marcie, Pooja - 03/05/[address] [address] [address] Scan Report Signed Patient: Snehal Ryan LMR#: [id number] : 3Acct:[id number] Age/Sex: 73 / FADM Date: 03/05/24 Loc: HO.S3 360-[address]: Keyur Alfred MD Ordering Physician: Omar Mast Date of Service: 03/04/24 Procedure(s): CT abdomen pelvis wo IV con Accession Number(s): [id number] cc: Aarti Thacker; Omar Mast EXAMINATION: CT ABDOMEN AND PELVIS WITHOUT CONTRAST CLINICAL INFORMATION: Left-sided abdominal pain. COMPARISON: Abdominal ultrasound from 08/01/2023. CT abdomen and pelvis from 09/25/2021. TECHNIQUE: Multidetector volumetric imaging was performed from the lung bases to the pubic without contrast. Sagittal and coronal reformatted images were obtained on the technologist workstation. This CT examination was performed using dose optimization techniques as appropriate, variously including the following: *Automated exposure control. *Adjustment of mA and/or kV according to patient size (this includes techniques or standardized protocols for targeted exams where dose is matched to indication/reason for exam; i.e. extremities or head). *Use of iterative reconstruction technique. DLP: 585 mGy-cm FINDINGS: LUNG BASES: Mildly increased subpleural reticulation in the visualized lung bases. Otherwise, no abnormalities of the visualized lung bases. Moderate coronary artery calcifications. No demonstrated abnormalities of the visualized cardiac structures. ABDOMEN/PELVIS: Liver, Biliary Ducts, and Gallbladder: The unenhanced liver is normal in size and attenuation without focal hepatic lesions or biliary ductal dilatation. The gallbladder is physiologically distended without radiopaque gallstones, pericholecystic fluid, or significant gallbladder wall thickening. Pancreas: Moderate fatty atrophy of the pancreatic head. Moderate fat stranding surrounding the pancreatic body and tail. No overtly demonstrated discrete collection or soft tissue mass. Adrenal Glands: The adrenal glands are normal in appearance. Spleen: The spleen is normal in appearance. Kidneys and Ureters: The unenhanced kidneys are normal in size without evidence of nephrolithiasis or hydronephrosis. No ureterolithiasis or hydroureter. Urinary Bladder: The urinary bladder is partially distended without focal wall thickening. No bladder calculi are demonstrated. Gastrointestinal System: The stomach is decompressed and therefore not well evaluated on this exam. The small bowel is of normal caliber. Moderate sigmoid diverticulosis without evidence of diverticulitis. Otherwise, the colon is normal in appearance without focal wall thickening or pericolonic inflammatory change. Normal appendix. Genitourinary: No demonstrated adnexal soft tissue masses. Intra-abdominal and Retroperitoneal Spaces: Prior lower anterior abdominal wall surgery. No intra-abdominal free fluid collections or gas. No mesenteric, retroperitoneal, or inguinal lymphadenopathy. VASCULATURE: The abdominal aorta is of normal contour and caliber with moderate calcific atherosclerotic disease. MUSCULOSKELETAL: Mild to moderate multilevel degenerative changes of the spine. No lytic or sclerotic osseous lesions demonstrated. No soft tissue masses demonstrated. CT/CT abdomen pelvis wo IV con IMPRESSION: 1. Moderate fat stranding surrounding the pancreatic body and tail potentially indicating acute interstitial edematous pancreatitis. No demonstrated peripancreatic fluid collection. Recommend correlation with pancreatic serum markers. 2. Diverticulosis without evidence of diverticulitis. Electronically signed by: Liam Mi DO 03/05/2024 02:20 AM EST Dictated By: Chapincito Mi DO Signed By: <Electronically signed by Chapincito Mi DO in OV> 03/05/24 0220 DD/ 01 TD/TT: 03/04/241901 Popcorn Machine Operator: OLY [facility] External Provider IMG CT PROCEDURES Edited Result - Final * Urinalysis w/reflex microscopic (03/04/2024 2:46 PM EST) Color Urine Yellow [facility] Appearance Urine Cloudy [facility] PH 7.0 5.0 - 9.0 [facility] Glucose Urine UA Negative Negative mg/dL [facility] Urine Blood Negative Negative [facility] Specific [place] - Urine 1.020 1.005 - 1.025 [facility] Urine Protein Negative Neg-Trace mg/dL [facility] Urine Ketones 15 Negative mg/dL [facility] Nitrite Urine Negative Negative [facility] Leukocyte Esterase Urine Negative Negative [facility] 03/04/2024 2:46 PM EST 03/04/2024 2:51 PM EST Narrative [facility] - 03/04/2024 2:59 PM EST Urine, Clean Catch us Generic External Data Provider LAB URINE ORDERAB LES Final Result [facility] [address] [facility] [place] [address] [phone] * XR Chest 2 Views (03/04/2024 2:25 PM EST) Anatomical Region Laterality Modality Chest Radiographic Mayte ging 03/04/2024 2:25 PM EST Narrative 03/04/2024 3:25 PM EST ? [facility] ?[address] ?[place] [address] ?XRay Report ? Signed ? Patient: Luis Angel Lisbeth,Snehal L ?MR#: ?? [id number] ? : 1950 ?Acct:[id number] ? Age/Sex: 73 / F ?ADM Date: 03/05/24 ? Loc: HO.S3 ?360-1 ? Attending Dr: Keyur Alfred MD ? Ordering Physician: Enedina Davis ?? Date of Service: 03/04/24 ?? Procedure(s): XR chest 2V ?? Accession Number(s): [id number] ? cc: Enedina Davis; Aarti Thacker ? EXAMINATION: ?? XR CHEST ? CLINICAL INFORMATION: ?? pain ? COMPARISON: ?? None available. ? TECHNIQUE: ?? 2 views of the chest were obtained. ? FINDINGS: ?? The cardiac, hilar, and mediastinal contours are normal. ?? Elevated right hemidiaphragm again noted. ? Low lung volumes, diffusely prominent finding interstitial markings ?? suggesting underlying interstitial lung disease. There is no ?? pneumothorax or pleural effusion. ? There is no focal osseous or soft tissue abnormality. ? XR/XR chest 2V ?? IMPRESSION: ?? 1. Low lung volumes with diffuse prominence of the interstitial ?? markings, consistent with interstitial lung disease. Unchanged ?? appearance. ?? 2. Elevated right hemidiaphragm, unchanged. ?? 3. No active superimposed disease. ? Electronically signed by: ??Olegario Best MD ??03/04/2024 03:21 PM EST RP ? Dictated By: ?Olegario Best MD ? Signed By: ?<Electronically signed by Olegario Best MD in OV> ?03/04/24 1521 ? DD/ 1425 ? TD/TT: 03/04/24 1430 ? Popcorn Machine Operator: ? Procedure Note Donotuseinterpreter, Image - 03/05/[address] [address] XRay Report Signed Patient: Snehal Ryan LMR#: [id number] : 1950cct:[id number] Age/Sex: 73 / FADM Date: 03/05/24 Loc: HO.S3 360-[address]: Keyur Alfred MD Ordering Physician: Enedina Davis Date of Service: 03/04/24 Procedure(s): XR chest 2V Accession Number(s): [id number] cc: Enedina Davis; Aarti Thacker EXAMINATION: XR CHEST CLINICAL INFORMATION: pain COMPARISON: None available. TECHNIQUE: 2 views of the chest were obtained. FINDINGS: The cardiac, hilar, and mediastinal contours are normal. Elevated right hemidiaphragm again noted. Low lung volumes, diffusely prominent finding interstitial markings suggesting underlying interstitial lung disease. There is no pneumothorax or pleural effusion. There is no focal osseous or soft tissue abnormality. XR/XR chest 2V IMPRESSION: 1. Low lung volumes with diffuse prominence of the interstitial markings, consistent with interstitial lung disease. Unchanged appearance. 2. Elevated right hemidiaphragm, unchanged. 3. No active superimposed disease. Electronically signed by: Olegario Best MD 03/04/2024 03:21 PM [facility] Dictated By: Olegario Best MD Signed By: <Electronically signed by Olegario Best MD in OV> 03/04/24 1521 DD/ 1425 TD/TT: 03/04/24 1430 Popcorn Machine Operator: [facility] External Provider IMG XR PROCEDURES Edited Result - Final * High Sensitivity Troponin I (03/04/2024 1:50 PM EST) [facility] TROPONIN I HIGH SENSITIVITY <2.7 <3.5 - 17.0 ng/L [facility] Comment:The [place] high sens itivity Troponin-I results should beused in conjunction with other diagnostic information suchas ECG, clinical observations and information, and patientsymptoms to aid in the diagnosis of ID. 03/04/2024 1:50 PM EST 03/04/2024 2:01 PM EST Generic External Data Provider LAB BLOOD ORDERAB LES Final Result Performing Organization Address [facility]/ZIP Co de Phone Number [facility] [address] [place] [phone] * HOLD LT BLUE - POSSIBLE COAG (03/04/2024 1:50 PM EST) [facility] Hold Lt Blue - Possible Coag SEE NOTE [facility] Comment:Specimen will be hel d untested for 4 hours. Call Hematologyif testing is desired. 03/04/2024 1:50 PM EST 03/04/2024 2:02 PM EST Generic External Data Provider LAB BLOOD ORDERAB LES Final Result Performing Organization Address [facility]/ZIP Co de Phone Number [facility] [address] [place] [phone] * (ABNORMAL) CBC auto differential (03/04/2024 1:50 PM EST) [facility] White Blood Count 11.2(H) 4.8 - 10.8 X10*3/uL [facility] Red Blood Count 3.88(L) 4.20 - 5.50 X10*6/uL [facility] Hemoglobin 12.8 12.0 - 16.0 g/dl [facility] Hematocrit 36.8(L) 37.0 - 47.0 % [facility] Mean Corpuscular Volume 94.8 80.0 - 98.0 fL [facility] Mean Corpuscular Hemoglobin 33.0 27.0 - 33.0 pg [facility] Mean Corpuscular HGB Conc 34.8 31.0 - 35.0 g/dl [facility] Red Cell Distribution Width 12.3 11.0 - 16.0 % [facility] Platelet Count 206 160 - 400 X10*3/uL [facility] Mean Platelet Volume 11.4 9.4 - 12.3 fL [facility] Neutrophils Percent Auto 73.6(H) 45 - 73 % [facility] Imm Gran Pct Auto 0.4 0.0 - 0.4 % [facility] Lymphocytes Percent Auto 19.1(L) 20 - 40 % [facility] Monocytes Percent Auto 6.1 2 - 11 % [facility] Eosinophils Percent Auto 0.4 0 - 4 % [facility] Basophils Percent Auto 0.4 0 - 2 % [facility] NRBC Pct Auto 0.0 0.0 - 0.2 /100WBC [facility] Neutrophils Absolute Auto 8.2 2.0 - 8.3 x10*3/uL [facility] Imm Gran Abs Auto 0.05(H) 0.00 - 0.03 X10*3/uL [facility] Lymphocytes Absolute Auto 2.1 1.2 - 4.9 X10*3/uL [facility] Monocytes Absolute Auto 0.7 0.1 - 1.2 X10*3/uL [facility] Eosinophils Absolute Auto 0.1 0.0 - 0.4 X10*3/uL [facility] Basophils Absolute Auto 0.0 0.0 - 0.2 X10*3/uL [facility] NRBC Abs Auto 0.000 0.0 - 0.012 X10*3/uL [facility] 03/04/2024 1:50 PM EST 03/04/2024 2:01 PM EST us Generic External Data Provider LAB BLOOD ORDERAB LES Final Result Performing Organization Address City/State/[facility] de Phone Number [facility] [address] [place] [phone] * Magnesium (03/04/2024 1:50 PM EST) [facility] Magnesium 1.6 1.6 - 2.6 mg/dL [facility] 03/04/2024 1:50 PM EST 03/04/2024 2:01 PM EST Generic External Data Provider LAB BLOOD ORDERAB LES Final Result Performing Organization Address [facility] de Phone Number [facility] [address] [place] [phone] * Lipase (03/04/2024 1:50 PM EST) [facility] Lipase 14 8 - 78 U/L [facility] 03/04/2024 1:50 PM EST 03/04/2024 2:01 PM EST Generic External Data Provider LAB BLOOD ORDERAB LES Final Result Performing Organization Address [facility] de Phone Number [facility] [address] [place] [phone] * (ABNORMAL) Comprehensive Metabolic Panel (03/04/2024 1:50 PM EST) [facility] Sodium 140 135 - 145 mmol/L [facility] Potassium 4.1 3.3 - 5.1 mmol/L [facility] Comment:Mild Hemolysis.Inter pret result with caution Chloride 108 96 - 108 mmol/L [facility] Carbon Dioxide 26 22 - 29 mmol/L [facility] Anion Gap 10(L) 12 - 20 [facility] Urea Nitrogen (BUN) 9 9 - 16 mg/dL [facility] Creatinine, Serum 0.61 0.5 - 1.4 mg/dL [facility] Creatinine Clr Calc Pharmacy 75.4 [facility] Comment:Provided height and weight: 152.4 cm,73 kg.eGFR (calculated from the MDRD study equation) and eCrCl(calculated from the Cockcroft-Gault equation) are based ondifferent parameters and may not yield comparable results.If eCrCl result is absurd, please check patient'sheight/weight. Estimated Glomerular Filt Rate >60 [facility] Comment:Chronic Kidney Disea se: Estimated GFR < 60 mL/min/1.67x9Gljyzk Kidney Disease: Estimated GFR < 15 mL/min/1.73m2 Glucose 132(H) 60 - 115 mg/dL [facility] Calcium 9.3 8.4 - 10.2 mg/dL [facility] Bilirubin, Total 0.5 0.0 - 1.0 mg/dL [facility] Aspartate Amino Transferase 39(H) 5 - 31 U/L [facility] Comment:Mild Hemolysis.Inter pret result with caution Alanine Aminotransferase 13 0 - 31 U/L [facility] Total Protein 7.8 6.5 - 8.0 g/dL [facility] Comment:Mild Hemolysis.Inter pret result with caution Albumin Level 3.9 3.5 - 5.0 g/dL [facility] Alkaline Phosphatase 73 39 - 117 U/L [facility] 03/04/2024 1:50 PM EST 03/04/2024 2:01 PM EST us Generic External Data Provider LAB BLOOD ORDERAB LES Final Result Performing Organization Address [facility]/State/[facility] Co de Phone Number [facility] [address] [place] [phone] * BI Mammogram Screening Tomosynthesis Bilateral (10/16/2023 9:14 AM EDT) Anatomical Region Laterality Modality Breast Bilateral Mammography 10/16/2023 9:14 AM EDT Narrative 11/05/2023 9:00 PM EDT ? [facility] ? [address] ?[place] [address] ? Mammography Report ? Signed ? Patient: Luis Angel Lisbeth,Snehal L ?MR#: ?? [id number] ? : 1950 ?Acct:[id number] ? Age/Sex: 73 / F ?ADM Date: 10/16/23 ? Loc: HO.MAMMO ? Attending Dr: Aarti Thacker MD ? Ordering Physician: Aarti Thacker ?Results: 1Negative ? Date of Service: 10/16/23 ?Follow Up: 1 Year From Orig ?? inal Mammogram ? Procedure(s): MM tomosynthesis screening BI ?? Accession Number(s): [id number] ? cc: Aarti Thacker ? EXAMINATION: ?? MM SCREENING DIGITAL BREAST TOMOSYNTHESIS, BILATERAL ? CLINICAL INFORMATION: ? Screening. Asymptomatic. ? COMPARISON: ?? Mammography: This study is compared with prior exams dating back to ?? 2017. ? TECHNIQUE: ?? Digital breast tomosynthesis is performed in both the craniocaudal and ?? mediolateral oblique views along with computer-aided detection (CAD). ?? Synthesized 2D images are generated from the tomosynthesis. ? FINDINGS: ?? There are scattered areas of fibroglandular density (ACR BI-RADS breast ?? composition Category b). ? There are no significant masses, abnormal calcifications, or other ?? abnormalities. ? MM/MM tomosynthesis screening BI ?? IMPRESSION: ?? No mammographic evidence of malignancy. ? ASSESSMENT: ? BI-RADS BI-RADS 1 - Negative ? RECOMMENDATION: ?? Routine annual mammography screening. ? 1 year F/U ? This examination should not preclude the clinical evaluation of a ?? suspicious palpable abnormality. ? This patient's information was entered into a reminder system with a ?? target due date for their next mammogram. ? Dictated By: ?Alicia Alva MD ? Signed By: ?<Electronically signed by Alicia Alva MD in OV> ? 11/05/232056 ? DD/ 0914 ? TD/TT: ? Popcorn Machine Operator: ? Procedure Note Donotclaireinterpreter, Image - 11/05/2023 [facility] [address] [place], [place] [address] Mammography Report Signed Patient: Snehal Ryan LMR#: [id number] : 3Acct:[id number] Age/Sex: 73 / FADM Date: 10/16/23 Loc: HO.MAMMO Attending Dr: Aarti Thacker MD Ordering Physician: Mercy Thackerults: 1Negative Date of Service: 10/16/23Follow Up: 1 Year From Orig inal Mammogram Procedure(s): MM tomosynthesis screening BI Accession Number(s): [id number] cc: Aarti Thackre EXAMINATION: MM SCREENING DIGITAL BREAST TOMOSYNTHESIS, BILATERAL CLINICAL INFORMATION: Screening. Asymptomatic. COMPARISON: Mammography: This study is compared with prior exams dating back to 2017. TECHNIQUE: Digital breast tomosynthesis is performed in both the craniocaudal and mediolateral oblique views along with computer-aided detection (CAD). Synthesized 2D images are generated from the tomosynthesis. FINDINGS: There are scattered areas of fibroglandular density (ACR BI-RADS breast composition Category b). There are no significant masses, abnormal calcifications, or other abnormalities. MM/MM tomosynthesis screening BI IMPRESSION: No mammographic evidence of malignancy. ASSESSMENT: BI-RADS BI-RADS 1 - Negative RECOMMENDATION: Routine annual mammography screening. 1 year F/U This examination should not preclude the clinical evaluation of a suspicious palpable abnormality. This patient's information was entered into a reminder system with a target due date for their next mammogram. Dictated By: Aliica Alva MD Signed By: <Electronically signed by Alicia Alva MD in OV> 11/05/232056 DD/ 3 TD/TT: Popcorn Machine Operator: Result [facility] Aarti Thacker MD IMG BI PROCEDURES Final Result * Albumin, Random Urine W/Creatinine (07/03/2023 12:00 PM EDT) Creatinine, Urine 29.87 mg/dL [facility] Microalbumin Urine <5.0 mg/L [facility] Microalbum Creatinine Ratio Ur TNP <30 ug/mg cr [facility] Comment:Unable to calculate albumin/creatinine ratio due to lowmicroalbumin or creatinine result. Urine (Urine, Random) 07/03/2023 12:00 PM EDT 07/03/2023 1:10 PM EDT Result [facility] Aarti Thacker MD LAB URINE ORDERABLES Final Res ult Performing Organization Address [facility]/ZIP Co de Phone Number [facility] [address] [place] [phone] * Hepatitis C Antibody with Reflex to HCV, RNA, Quantitative, Real-Time PCR (07/03/2023 12:00 PM EDT) Hepatitis C Antibody Nonreactive Nonreactive [facility] Comment:Antibodies to HCV no t detected; does not exclude early acuteHCV infection. Blood Venous blood specimen / Unknown 07/03/2023 12:00 PM EDT 07/03/2023 1:16 PM EDT Aarti Thacker MD LAB BLOOD ORDERABLES Final Res ult Performing Organization Address City/[facility]/ZIP Co de Phone Number [facility] [address] [place] [address] [phone] * Lipid Panel, Standard (07/03/2023 12:00 PM EDT) Triglycerides 82 <150 mg/dL [facility] Comment:Desirable Triglyceri de: less than 150 mg/dLBorderline High Triglyceride 150-199 mg/dLHigh Triglyceride: 200-499 mg/dLVery High Triglyceride: greater than or equal to 5OO mg/dL Cholesterol 146 <200 mg/dL [facility] Comment:Desirable Cholestero l: less than 200 mg/dLBorderline High Cholesterol: 200-239 mg/dLHigh Cholesterol: greater than 239 mg/dL LDL Cholesterol Calculated 80 <100 mg/dL [facility] Comment:Desirable LDL: less than 100 mg/dLNear Optimal/Above Optimal LDL: 110- 129 mg/dLBorderline High LDL: 130-159 mg/dLHigh LDL: 160-189 mg/dLVery High LDL: greater than or equal to 190 mg/dL HDL Cholesterol 50 >40 mg/dL [facility] Comment:Desirable HDL: great er than 40 mg/dL Note: This HDL assay may give artificially low results in patients with liver disease. Blood Venous blood specimen / Unknown 07/03/2023 12:00 PM EDT 07/03/2023 1:16 PM EDT Aarti Thacker MD LAB BLOOD ORDERABLES Final Res ult [facility] [address] [place] [address] [phone] * (ABNORMAL) Colonoscopy (12/22/2020) Colonoscopy Abnormal(A ) Normal Historical Provider HEALTH MAINTENANCE Edited Result - Final from Last 3 Months or Most Recently Relevant to Health Maintenance Insurance [facility] Care Teams Storage Management Consultant Relationship Specialty Start Date End Date Aarti Thacker MD [address] [place] [address] [place] [address] PCP - General Family Medicine 02/04/20
--- OUTSIDE RECORDS SUMMARY | 2024-04-20 12:25 | XMS_ITS | Encounter Summary ---
Author Organization [employer] Address [address] [facility] [address] [place] [address] Care Team Providers Care Heel Sprayer Name Role Phone Aarti Thacker MD Primary Care Provider [phone] Reason for Visit * Reason Onset Date Comments Med Refill 04/08/2024 Encounter Details Date Type Department Care Team (Late st Contact Info) Description 04/08/2024 Refill [facility] [address] [place], [place] [phone] Aarti Thacker MD [address], [place] [phone] DISH (diffuse idiopathic skeletal hyperostosis) Social History Tobacco Use Types Packs/Day Years [...] the past 12 months, has t he [employer], gas, oil or water company threatened to [...] Telephone Encounter - Carmelo Arreola - 04/08/2024 11:21 AM EST TC from pt requesting medication refill. Medications needing refill : oxyCODONE-acetaminophen (Percocet) 5-325 MG tablet To be sent to: [facility] documented in this encounter Plan of Treatment Upcoming Encounters Date Type Department Care Team (Late st Contact Info) Description 06/25/2024 9:30 AM EDT Telemedicine [facility] [address] [place] [phone] Tyesha Lock, RASHAUN documented as of this encounter Goals Goal Patient Goal Type Associated Problems Recent Progress Patient-Stated? Author Patient will adhere to medication regimen General No Piers-GambGenoveva martínez, PharmD Hemoglobin A1c < 7.5 Result Component 6.3( 1:32 PM EST) No Yossis-GambGenoveva martínez, PharmD documented as of this encounter Visit Diagnoses Diagnosis DISH (diffuse idiopathic skeletal hyperostosis) Ankylosing vertebral hyperostosis documented in this encounter Additional Health Concerns Assessment Noted Time PHQ-9 Depression Total Score: 0 07/03/19 24 10:52 AM EDT documented as of this encounter Care Teams Heel Sprayer Relationship Specialty Start Date End Date Aarti Thacker MD [address] [place] [address] PCP - General Family Medicine 02/04/20 documented as of this encounter
--- OUTSIDE RECORDS SUMMARY | 2024-04-20 12:25 | XMS_ITS | Encounter Summary ---
Author Organization [employer] Address [address] [facility] [address] [place] [address] Care Team Providers Care Refrigeration Specialist Name Role Phone Aarti Thacker MD Primary Care Provider [phone] Encounter Details Date Type Department Care Team (Latest Contact Info) Description 04/09/2024 Travel Social History Tobacco Use Types Packs/Day [...] is your housing situation today? I have myarnda howell 01/08/[address] you [...] Info) Description 06/25/2024 9:30 AM EDT Telemedicine [facility] [address] [place] [address] Tyesha Lock RN documented as of this encounter Goals Goal Patient Goal Type Associated Problems Recent Progress Patient-Stated? Author Patient will adhere to medication regimen General No Yossis-Genoveva Keller, PharmD Hemoglobin A1c < 7.5 Result Component 6.3( 5 1:32 PM EST) No oYssis-Gambl elizabeth, Genoveva, PharmD documented as of this encounter Visit Diagnoses Not on filedocumented in this encounter Additional Health Concerns Assessment Noted Time PHQ-9 Depression Total Score: 0 07/03/19 24 10:52 AM EDT documented as of this encounter Care Teams Refrigeration Specialist Relationship Specialty Start Date End Date Aarti Thacker MD [address] [place] [phone] PCP - General Family Medicine 02/04/20 documented as of this encounter
--- OUTSIDE RECORDS SUMMARY | 2024-04-20 12:25 | XMS_ITS | Encounter Summary ---
Author Organization [employer] Address [address] [facility] [address] [place] [address] Care Team Providers Care Make Up Editor Name Role Phone Aarti Thacker MD Primary Care Provider [phone] Reason for Visit * Reason Onset Date Comments Med Refill 04/09/2024 BPI Scoring 04/09/2024 Encounter Details Date Type Department Care Team (Late st Contact Info) Description 04/09/2024 Refill [facility] [address] [place] [address] Tyesha Lock, RN DISH (diffuse idiopathic skeletal hyperostosis) Social History [...] Encounter - Tyesha Lock RN - 04/09/2024 9:04 AM EST Pt had Tele FLOW NURSE RV today BPI updated Pain severity score of 4.8, activity interference score of 5.3. Previous BPI completed 09/05/23 with pain severity score of 6.8, activity interference score of 8.3. * Telephone Encounter - Tyesha Lock RN - 04/09/2024 9:00 AM EST TC to [facility], spoke with [facility] for 04/12/24 was cancelled. documented in this encounter Plan of Treatment Upcoming Encounters Date Type Department Care Team (Late st Contact Info) Description 06/25/2024 9:30 AM EDT Telemedicine [facility] [address] [place] [phone] Tyesha Lock, RASHAUN documented as of this encounter Goals Goal Patient Goal Type Associated Problems Recent Progress Patient-Stated? Author Patient will adhere to medication regimen General No Piers-Gambl e, Genoveva, PharmD Hemoglobin A1c < 7.5 Result Component 6.3( 5 1:32 PM EST) No Genoveva Jones PharmD documented as of this encounter Visit Diagnoses Diagnosis DISH (diffuse idiopathic skeletal hyperostosis) Ankylosing vertebral hyperostosis documented in this encounter Additional Health Concerns Assessment Noted Time PHQ-9 Depression Total Score: 0 07/03/19 24 10:52 AM EDT documented as of this encounter Care Teams Make Up Editor Relationship Specialty Start Date End Date Aarti Thacker MD [address] [place] [phone] PCP - General Family Medicine 02/04/20 documented as of this encounter
--- OUTSIDE RECORDS SUMMARY | 2024-04-20 12:25 | XMS_ITS | Encounter Summary ---
Author Organization [employer] Address [address] [facility] [address] [place] [address] Care Team Providers Care Painter And Body Mechanic Apprentice Name Role Phone Aarti Thacker MD Primary Care Provider [phone] Encounter Details Date Type Department Care Team (Latest Contact Info) Description 04/13/2024 Travel Social History Tobacco Use Types Packs/Day [...] Info) Description 06/25/2024 9:30 AM EDT Telemedicine [facility] [address] [place] [address] Tyesha Lock RN documented as of this [...] documented as of this encounter Care Teams Painter And Body Mechanic Apprentice Relationship Specialty Start Date End Date Aarti Thacker MD [address] [place] [phone] PCP - General Family Medicine 02/04/20 documented as of this encounter
== END 2024-04-20 12:19 | disposition home or self-care (01) ==
PROVIDERS: PCP General Practice; Visit Provider Nurse Practitioner Family
DX: N28.1 Cyst of kidney, acquired (principal); N32.81 Overactive bladder; Z13.9 Encounter for screening, unspecified
CPT/HCPCS: 99213

== ENCOUNTER → 2024-04-20 11:09 | Outpatient (BNVA) | payer OTHER, SELFPAY | PROVIDERS: PCP General Practice; Visit Provider Nurse Practitioner Family | DX: N28.1 Cyst of kidney, acquired (principal); N32.81 Overactive bladder | CPT/HCPCS: 51798; 81003; 99212 ==

== ENCOUNTER 2024-05-16 15:11 | Emergency (ER) | payer OTHER, SELFPAY ==
--- NOTE | ~2024-05-16 | XR_ITS ---
CLINICAL HISTORY: sob, cough 2 view chest x-ray Comparison: None Findings: Mild patchy bilateral perihilar opacity. Normal size heart. No acute fracture. IMPRESSION: Mild atypical pneumonia. This document has been electronically signed by: Rd Ladd MD on 05/16/2024 16:25:42
[2024-05-16 15:27] VITALS: BP 184/86; PULSE 94; RESP 18; TEMP 37.7; O2SAT 97; BMI 30.7
--- NOTE | 2024-05-16 15:27 | ED_ITS ---
HPI - URI/Sore Throat General Chief Complaint: Upper Respiratory Symptoms Stated Complaint: ? flu Time Seen by Provider: 05/16/24 17:14 Source: patient Mode of arrival: ambulatory Limitations: no limitations History of Present Illness ED Provider: jennifer crandall np HPI Narrative: Patient is a 74-year-old female who presents emergency department for evaluation, has known flu, has been taking Tamiflu since symptom onset was Friday. Continues to have progressively worsening shortness of breath, coughing, fevers and chills, inability to sleep at night. Denies using her inhalers. Denies headache, dizziness, neck pain, neck stiffness, chest pain, sore throat, nausea, vomiting, abdominal pain, numbness or tingling of the extremities, genitourinary symptoms. Related Data Home Medications ?Medication ?Instructions ?Recorded ?Confirmed amlodipine 10 mg tablet 10 mg PO DAILY 01/17/20 04/20/24 aspirin 81 mg tablet,delayed 81 mg PO DAILY 01/17/20 04/20/24 release atorvastatin 40 mg tablet 40 mg PO BEDTIME 01/17/20 04/20/24 cyanocobalamin (vitamin B-12) 1,000 mcg PO DAILY 01/17/20 04/20/24 1,000 mcg tablet losartan 100 mg tablet 100 mg PO DAILY 01/17/20 04/20/24 melatonin 5 mg tablet 10 mg PO BEDTIME 01/17/20 04/20/24 blood sugar diagnostic #10 ea 07/24/20 04/20/24 lancets 33 gauge #100 ea 07/24/20 04/20/24 metformin 500 mg tablet,extended 1,000 mg PO BID 07/24/20 04/20/24 release 24 hr glipizide 5 mg tablet, extended 5 mg PO DAILY 10/08/22 04/20/24 release 24 hr metoprolol succinate 100 mg 150 mg PO DAILY 10/08/22 04/20/24 tablet,extended release 24 hr oxycodone-acetaminophen 5 mg-325 1 tab PO TID PRN Pain 12/03/23 04/20/24 mg tablet albuterol sulfate 90 mcg/actuation 2 inh inhalation Q4-6H PRN 03/05/24 04/20/24 aerosol inhaler (Ventolin HFA) Shortness Of Breath Or Wheezing budesonide-formoterol HFA 160 2 puff inhalation BID PRN 03/05/24 04/20/24 mcg-4.5 mcg/actuation aerosol Shortness Of Breath Or Wheezing inhaler (Symbicort) cholecalciferol (vitamin D3) 50 50 mcg PO DAILY 03/05/24 04/20/24 mcg (2,000 unit) capsule (Vitamin D3) gabapentin 100 mg capsule 200 mg PO BID 03/05/24 04/20/24 npqmwm-injmmflu-xmnnwgw 2 cap PO BID 03/05/24 04/20/24 24,000-76,000-120,000 unit capsule,delayed rel (Creon) mirabegron 25 mg tablet,extended 25 mg PO DAILY 03/05/24 04/20/24 release 24 hr (Myrbetriq) nintedanib 100 mg capsule (Ofev) 100 mg PO Q12H 03/05/24 04/20/24 omeprazole 20 mg capsule,delayed 20 mg PO DAILY@0630 03/05/24 04/20/24 release sitagliptin phosphate 50 mg tablet 50 mg PO DAILY 03/05/24 04/20/24 (Januvia) sucralfate 1 gram tablet 2 g PO DAILY 03/05/24 04/20/24 Previous Rx's ?Medication ?Instructions ?Recorded furosemide 20 mg tablet (Lasix) 20 mg PO DAILY PRN edema 30 days 10/29/22 #14 tabs mycophenolate mofetil 500 mg tablet 1,000 mg (2 x 500 mg) PO BID 30 10/14/23 days #120 tabs simethicone 180 mg capsule 180 mg PO BID #180 caps 12/17/23 trazodone 50 mg tablet 100 mg (2 x 50 mg) PO BEDTIME #60 12/29/23 tabs amoxicillin 875 mg-potassium 1 tab PO BID #13 tabs 05/16/24 clavulanate 125 mg tablet doxycycline hyclate 100 mg capsule 100 mg PO BID #9 caps 05/16/24 Allergies Allergy/AdvReac Type Severity Reaction Status Date / Time morphine [MORPHINE] Allergy Mild NAUSEA, Verified 05/16/24 15:32 VOMITING, DIZZINESS, HOT FLASHES Review of Systems 2 Review of Systems: Yes all other systems are reviewed and are negative PMFSH Past Medical History Attestation statement: The following information was validated with the patient. 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 Renal cyst Left flank pain Thoracic spine pain Abnormal chest x-ray Lower abdominal pain JAREK (obstructive sleep apnea) Colon cancer screening Hepatic steatosis JAREK (obstructive sleep apnea) Bibasilar crackles Dyspnea Chronic restrictive lung disease ILD (interstitial lung disease) Memory loss COPD (chronic obstructive pulmonary disease) OAB (overactive bladder) History of postoperative nausea and vomiting Diabetes Insomnia Pulmonary arterial hypertension Surgical History History of cholecystectomy H/O esophagogastroduodenoscopy History of hernia repair History of colonoscopy Family History Family History Father Hx of diabetes insipidus Mother Hx of diabetes insipidus Social History Social History Household Members: Family Housing: Apartment Do you presently have visiting nurse or other home services: Yes Alcohol intake: never Comment: tp refusing bed alarm Patient Tobacco Use Status: Never used Tobacco Years Smoked: 1yr Second Hand Smoke Exposure: No service: No Current occupational status: retired Physical Exam 2 Vital Signs: Vital Signs: Last Vital Signs Temp 99.8 F 05/16/24 15:27 Pulse 94 05/16/24 15:27 Resp 18 05/16/24 15:27 BP 184/86 H 05/16/24 15:27 Pulse Ox 97 05/16/24 15:27 O2 Del Method Room Air 05/16/24 15:27 BMI result Body Mass Index 30.7 Appearance: Alert.?Oriented to person, place and time. No acute distress.?Normal affect. Eyes: Pupils equal, round and reactive to light.? ENT: TM normal bilaterally. Pharynx normal.?? Neck: Normal inspection.? Neck supple.??No cervical adenopathy CVS: Heart sounds normal. Normal heart rate and rhythm.? Pulses normal.?? Respiratory: No respiratory distress.? Lung sounds clear to auscultation bilaterally?? Abdomen: Soft and non-tender. Normoactive bowel sounds. Skin: Skin warm and dry.? Normal skin color.? ? Extremities: No lower extremity edema.? Neuro: Moves all extremities spontaneously. Sensation intact bilaterally. No motor deficits. Ambulates with normal steady gait. Medical Decision Making Medical Decision Making [facility] Narrative: Patient is a 74-year-old female with past medical history of GERD, JAREK, interstitial lung disease, COPD, diabetes, pulmonary hypertension, presenting for evaluation of persistent flu-like symptoms as per HPI with cough, shortness of breath, fevers without improvement. Influenza a testing remains positive, negative COVID-19/RSV testing. Lung sounds are clear to auscultation bilaterally, mildly diminished in the bilateral lower bases, no rales. CXR revealing atypical pneumonia. Denies associated chest pain, lower suspicion for ACS, EKG was obtained revealing a sinus tachycardia with ventricular rate of 106, QTC 438, no ST elevation, no ST depression, T-wave inversion in lead III and aVR as seen on prior. High sensitive troponin below detectable limits, not consistent with ACS. Wells score low risk, not consistent with pulmonary embolism. CBC is without leukocytosis, anemia, thrombocytopenia. She is mildly hypokalemic 3.1 for which he will receive potassium chloride 40 mEq orally, and instructed on diet with potassium rich food, no further electrolyte derangement. No CARI. Speaking clear full sentences, ambulatory with steady gait. Discussed conservative treatment including rest, hydration, Tylenol/ibuprofen as needed for fever and body aches, saline nasal spray, humidifier, cwrx-kdc-[id number] cold medication. Advised to follow-up with primary care provider as needed, discussed reasons to return back to the emergency department. All questions were answered. Patient discharged home in stable condition. Differential Diagnosis Differential Diagnoses: The differential diagnosis associated with the presentation includes ( See narrative above) Admission/Observation Consideration of admission/observation: Escalation of care including admission/observation considered ( see narrative above) Lab Data [facility] Lab Attestation statement: I reviewed the patient's lab results. ( see narrative above) 05/16/24 15:55 05/16/24 15:55 Labs: Lab Results 05/16/24 Range/Units 15:55 WBC 6.0 (4.8-10.8) X10*3/uL RBC 3.98 L (4.20-5.50) X10*6/uL Hgb 13.3 (12.0-16.0) g/dl Hct 37.3 (37.0-47.0) % MCV 93.7 (80.0-98.0) fL MCH 33.4 H (27.0-33.0) pg MCHC 35.7 H (31.0-35.0) g/dl RDW 12.4 (11.0-16.0) % Plt Count 204 (160-400) X10*3/uL MPV 11.5 (9.4-12.3) fL Immature Gran % (Auto) 0.2 (0.0-0.4) % Neut % (Auto) 61.7 (45-73) % Lymph % (Auto) 29.4 (20-40) % [place] % (Auto) 5.9 (2-11) % Eos % (Auto) 2.5 (0-4) % Baso % (Auto) 0.3 (0-2) % Lymph # (Auto) 1.8 (1.2-4.9) X10*3/uL [place] # (Auto) 0.4 (0.1-1.2) X10*3/uL Eos # (Auto) 0.2 (0.0-0.4) X10*3/uL Baso # (Auto) 0.0 (0.0-0.2) X10*3/uL Abs Immat Gran (auto) 0.01 (0.00-0.03) X10*3/uL Absolute Neuts (auto) 3.7 (2.0-8.3) x10*3/uL Absolute Nucleated RBC 0.000 (0.0-0.012) X10*3/uL Nucleated RBC % (auto) 0.0 (0.0-0.2) /100WBC PT 11.9 (10.9-12.4) SEC INR 1.0 (0.9-1.1) Sodium 141 (135-145) mmol/L Potassium 3.1 L (3.3-5.1) mmol/L Chloride 102 (96-108) mmol/L Carbon Dioxide 27 (22-29) mmol/L Anion Gap 15 (12-20) BUN 10 (9-16) mg/dL Creatinine 0.60 (0.5-1.4) mg/dL Estim Creat Clear Calc 74.6 Estimated GFR > 60 Random Glucose 123 H (60-115) mg/dL Calcium 9.2 D (8.4-10.2) mg/dL Magnesium 1.8 (1.6-2.6) mg/dL Total Bilirubin 0.4 (0.0-1.0) mg/dL AST 35 H (5-31) U/L ALT 16 (0-31) U/L Troponin I High Sens 7.7 D (<3.5-17.0) ng/L B-Natriuretic Peptide 31 (<100) pg/mL Total Protein 8.1 H (6.5-8.0) g/dL Albumin 3.9 (3.5-5.0) g/dL Influenza Type A (PCR) POSITIVE A (Negative) Influenza Type B (PCR) NEGATIVE (Negative) RSV RNA Qual (PCR) NEGATIVE (Negative) SARS-CoV-2 RNA (RT-PCR) NEGATIVE (Negative) Independent Interpretation I performed an independent interpretation of an: EKG (See narrative above) and Plain X-Ray (See narrative above) Radiology Impression Discussion of test interpretation with radiology: I have reviewed the radiologist's reading. Radiologist Impression: 2 view chest x-ray Comparison: None Findings: Mild patchy bilateral perihilar opacity. Normal size heart. No acute fracture. IMPRESSION: Mild atypical pneumonia. External Record Review External record reviewed: Outpatient record Prescription Management I considered prescription management with: Pain Medication ( acetaminophen/ibuprofen) and Antibiotic Discharge Plan Discharge Clinical Impression: Pneumonia, Influenza, Hypokalemia Patient Disposition: Home, Self-Care Instructions: Influenza (ED), Pneumonia (ED) Additional Instructions: Chest x-ray today does show evidence of a mild case of pneumonia, in the setting of recently being ill with influenza. For this a prescription for antibiotics are being sent to the pharmacy. Ear potassium was also a little low today, you were given supplementation in the emergency department. Please be sure that you are consuming a good amount of potassium rich foods which include bananas, oranges, avocados, potatoes, tomato, green leafy vegetables Be sure to rest, stay well hydrated drinking plenty of fluids, eat small frequent meals. Tylenol/ibuprofen can be used as needed for fever/pain. Oetb-pya-uhdetwg cold medications may be helpful as well for symptoms. Saline nasal spray, humidifier may be helpful for nasal congestion. You may return to the emergency department with any new or worsening symptoms or concerns. Follow-up with your primary care provider as needed. Should remain out of school/ work until symptoms have resolved and have been without a fever for 24 hours without the use of Tylenol or ibuprofen. Prescriptions: New amoxicillin-pot clavulanate 875-125 mg tablet 1 tab PO BID Qty: 13 0RF doxycycline hyclate 100 mg capsule 100 mg PO BID Qty: 9 0RF No Action mycophenolate mofetil 500 mg tablet 1,000 mg PO BID 30 Days Qty: 120 6RF trazodone 50 mg tablet 100 mg PO BEDTIME Qty: 60 11RF Januvia 50 mg tablet 50 mg PO DAILY budesonide-formoterol [Symbicort] 160-4.5 mcg/actuation HFA aerosol inhaler 2 puff INHALATION BID PRN (Reason: Shortness Of Breath Or Wheezing) cholecalciferol (vitamin D3) [Vitamin D3] 50 mcg (2,000 unit) capsule 50 mcg PO DAILY Creon 24,000-76,000 -120,000 unit capsule,delayed release(DR/EC) 2 cap PO BID mirabegron [Myrbetriq] 25 mg tablet extended release 24 hr 25 mg PO DAILY Ofev 100 mg capsule 100 mg PO Q12H omeprazole 20 mg capsule,delayed release(DR/EC) 20 mg PO DAILY@0630 albuterol sulfate [Ventolin HFA] 90 mcg/actuation Hfa Aerosol Inhaler 2 inh INHALATION Q4-6H PRN (Reason: Shortness Of Breath Or Wheezing) gabapentin 100 mg capsule 200 mg PO BID sucralfate 1 gram tablet 2 g PO DAILY losartan 100 mg tablet 100 mg PO DAILY cyanocobalamin (vitamin B-12) 1,000 mcg tablet 1,000 mcg PO DAILY atorvastatin 40 mg tablet 40 mg PO BEDTIME aspirin 81 mg tablet,delayed release (DR/EC) 81 mg PO DAILY amlodipine 10 mg tablet 10 mg PO DAILY melatonin 5 mg tablet 10 mg PO BEDTIME metformin 500 mg tablet extended release 24 hr 1,000 mg PO BID (DME) blood sugar diagnostic Strip See Rx Instructions Not Applicable BID Qty: 10 Rx Instructions: As directed (DME) lancets 33 gauge misc See Rx Instructions .ROUTE .MEDSUPPLY Qty: 100 Rx Instructions: As directed metoprolol succinate 100 mg tablet extended release 24 hr 150 mg PO DAILY glipizide 5 mg tablet extended release 24hr 5 mg PO DAILY furosemide [Lasix] 20 mg tablet 20 mg PO DAILY PRN (Reason: edema) 30 Days Qty: 14 0RF simethicone 180 mg capsule 180 mg PO BID Qty: 180 1RF oxycodone-acetaminophen 5-325 mg tablet 1 tab PO TID PRN (Reason: Pain) Referrals: Aarti Thacker MD [Primary Care Provider] - Print Language: Grenadian
--- NOTE | 2024-05-16 15:31 | ECG_ITS ---
Test Reason : SOB Blood Pressure : */* mmHG Vent. Rate : 106 BPM Atrial Rate : 106 BPM P-R Int : 148 ms QRS Dur : 76 ms QT Int : 330 ms P-R-T Axes : 8 4 4 degrees QTcB Int : 438 ms Sinus tachycardia Otherwise normal ECG When compared with ECG of 04-Mar-2024 12:47, Nonspecific ST and T wave abnormality infeior leads Referred By: Kalina Causey Electronically Signed By: LOKESH MARCOS
[2024-05-16 16:02] LABS: MANUAL DIFF FLAG NO
[2024-05-16 16:18] LABS: Basophils Percent Auto 0.3 % (0-2); Eosinophils Absolute Auto 0.2 X10*3/uL (0.0-0.4); Eosinophils Percent Auto 2.5 % (0-4); Hematocrit 37.3 % (37.0-47.0); Hemoglobin 13.3 g/dl (12.0-16.0); Imm Gran Abs Auto 0.01 X10*3/uL (0.00-0.03); Imm Gran Pct Auto 0.2 % (0.0-0.4); Lymphocytes Absolute Auto 1.8 X10*3/uL (1.2-4.9); Lymphocytes Percent Auto 29.4 % (20-40); Mean Corpuscular HGB Conc 35.7 g/dl (31.0-35.0); Mean Corpuscular Hemoglobin 33.4 pg (27.0-33.0); Mean Corpuscular Volume 93.7 fL (80.0-98.0); Mean Platelet Volume 11.5 fL (9.4-12.3); Monocytes Absolute Auto 0.4 X10*3/uL (0.1-1.2); Monocytes Percent Auto 5.9 % (2-11); Neutrophils Absolute Auto 3.7 x10*3/uL (2.0-8.3); Neutrophils Percent Auto 61.7 % (45-73); Platelet Count 204 X10*3/uL (160-400); Red Blood Count 3.98 X10*6/uL (4.20-5.50); Red Cell Distribution Width 12.4 % (11.0-16.0)
[2024-05-16 16:22] LABS: Prothrombin Time 11.9 SEC (10.9-12.4)
[2024-05-16 16:47] LABS: B Type Natriuretic Peptide 31 pg/mL (<100)
[2024-05-16 16:48] LABS: Alanine Aminotransferase 16 U/L (0-31); Albumin Level 3.9 g/dL (3.5-5.0); Anion Gap 15 (12-20); Aspartate Amino Transferase 35 U/L (5-31); Bilirubin Total 0.4 mg/dL (0.0-1.0); Blood Urea Nitrogen 10 mg/dL (9-16); Calcium 9.2 mg/dL (8.4-10.2); Carbon Dioxide 27 mmol/L (22-29); Chloride 102 mmol/L (96-108); Creatinine Clr Calc Pharmacy 74.6; Estimated Glomerular Filt Rate > 60; Glucose Random 123 mg/dL (60-115); Magnesium 1.8 mg/dL (1.6-2.6); Potassium 3.1 mmol/L (3.3-5.1); Sodium 141 mmol/L (135-145); Total Protein 8.1 g/dL (6.5-8.0); Troponin-I High Sensitivity 7.7 ng/L (<3.5-17.0)
[2024-05-16 17:03] LABS: Influenza A PCR POSITIVE (Negative); Influenza B PCR NEGATIVE (Negative); Resp Syncy Virus RNA Qual PCR NEGATIVE (Negative); SARS COV2 PCR INHOUSE NEGATIVE (Negative)
[2024-05-16 17:20] LABS: Alkaline Phosphatase 62 U/L (39-117)
[2024-05-16] MEDS: Amoxicillin/Potassium Clav 875 MG TABLET PO (17:23)
[2024-05-16] MEDS: Doxycycline Monohydrate 100 MG CAPSULE PO (17:23)
--- OUTSIDE RECORDS SUMMARY | 2024-05-16 17:23 | XMS_ITS | Encounter Summary ---
Author Organization [employer] Address [address] [place] [address] Care Team Providers Care Veneer Stacker Name Role Phone Aarti Thacker MD Primary Care Provider [phone] Reason for Visit * Reason Comments Med Refill Encounter Details Date Type Department Care Team (Late st Contact Info) Description 11/14/2023 Refill [facility] MEDICINE [address] [place], [place] [phone] Aarti Thacker MD [address] [place], [place] [phone] Social History Tobacco Use Types Packs/Day Years [...] 06/25/2024 9:30 AM EDT Telemedicine [facility] MEDICINE [address] [place] [phone] Tyesha Lock, RN documented as of this [...] documented as of this encounter Care Teams Veneer Stacker Relationship Specialty Start Date End Date Aarti Thacker MD [address] [place] [phone] PCP - General Family Medicine 02/04/20 documented as of this encounter
--- OUTSIDE RECORDS SUMMARY | 2024-05-16 17:23 | XMS_ITS | Encounter Summary ---
Author Organization [employer] Address [address] [facility] 7t [place] [address] Care Team Providers Care Director Physical Therapy Name Role Phone Aarti Thacker MD Primary Care Provider [phone] Encounter Details Date Type Department Care Team (Late st Contact Info) Description 05/16/2024 Orders Only GENERIC EXTERNAL DATA DEPARTMENT Provider, Generic External Data Social History Tobacco Use Types Packs/Day Years [...] Info) Description 06/25/2024 9:30 AM EDT Telemedicine [facility] MEDICINE [address] [place] [address] Tyesha Lock RN documented as of this encounter Goals Goal Patient Goal Type Associated Problems Recent Progress Patient-Stated? Author Patient will adhere to medication regimen General No Genoveva Jones, PharmJamie Hemoglobin A1c < 7.5 Result Component 6.3( 1:32 PM EST) No Genoveva Jones PharmD documented as of this encounter Procedures Procedure Name Priority Date/Time Associated Diagnosis Comments XR CHEST 2 VIEWS Routine 05/16/2024 4:25 PM EST HIGH SENSITIVITY TROPONIN I Routine 05/16/2024 3:55 PM EST SARS COV2/INFLUENZA A/B AND RSV RNA QL NAAT Routine 05/16/2024 3:55 PM EST CBC WITH AUTO DIFFERENTIAL Routine 05/16/2024 3:55 PM EST PROTHROMBIN TIME-INR Routine 05/16/2024 3:55 PM EST B TYPE NATRIURETIC PEPTIDE (BNP) Routine 05/16/2024 3:55 PM EST MAGNESIUM Routine 05/16/2024 3:55 PM EST COMPREHENSIVE METABOLIC PANEL Routine 05/16/2024 3:55 PM EST documented in this encounter Results * XR Chest 2 Views (05/16/2024 4:25 PM EST) Anatomical Region Laterality Modality Chest Radiographic Mayte ging 05/16/2024 4:25 PM EST Narrative 05/16/2024 4:27 PM EST ? [facility] ?[address] ?[place] [address] ?XRay Report ? Signed ? Patient: Luis Angel Robertsa,Snehal L ?MR#: ?? [id number] ? : 1950 ?Acct:[id number] ? Age/Sex: 74 / F ?ADM Date: 05/16/24 ? Loc: HO.ED ? Attending Dr: ? Ordering Physician: Kalina Causey CNP ?? Date of Service: 05/16/24 ?? Procedure(s): XR chest 2V ?? Accession Number(s): [id number] ? cc: Kalina Causey CNP; Aarti Thacker ? CLINICAL HISTORY: sob, cough ? 2 view chest x-ray ? Comparison: None ? Findings: ?? Mild patchy bilateral perihilar opacity. ?? Normal size heart. ?? No acute fracture. ? IMPRESSION: ?? Mild atypical pneumonia. ? This document has been electronically signed by: Rd Ladd MD on ?? 05/16/2024 16:25:42 ? Dictated By: ?Rd Ladd MD ? Signed By: ?<Electronically signed by Rd Ladd MD in OV> ? 05/16/24 1626 ? DD/ 24 ? TD/TT: 05/16/241624 ? Dancing Instructor: ? Procedure Note Pooja Jack - 05/16/[address] [address] XRay Report Signed Patient: Snehal Ryan LMR#: [id number] : 3Acct:[id number] Age/Sex: 74 / FADM Date: 05/16/24 Loc: HO.ED Attending Dr: Ordering Physician: Kalina Causey CNP Date of Service: 05/16/24 Procedure(s): XR chest 2V Accession Number(s): [id number] cc: Kalina Causey CNP; Aarti Thacker CLINICAL HISTORY: sob, cough 2 view chest x-ray Comparison: None Findings: Mild patchy bilateral perihilar opacity. Normal size heart. No acute fracture. IMPRESSION: Mild atypical pneumonia. This document has been electronically signed by: Rd Ladd MD on 05/16/2024 16:25:42 Dictated By: Rd Ladd MD Signed By: <Electronically signed by Rd Ladd MD in OV> 05/16/246 DD/ 24 TD/TT: 05/16/241624 Dancing Instructor: [facility] External Provider IMG XR PROCEDURES Final Result * (ABNORMAL) SARS-CoV-2 RNA, Influenza A/B, and RSV RNA, Ql NAAT (05/16/2024 3:55 PM EST) Influenza A PCR POSITIVE(A) Negative [facility] Influenza B PCR NEGATIVE Negative [facility] Resp Syncy Virus RNA Qual PCR NEGATIVE Negative [facility] SARS COV2 PCR NEGATIVE Negative [facility] Comment:All test results mus t be correlated with clinical findings.Negative results do not preclude SARS-CoV2, influenza Avirus, influenza B virus and/or RSV infectionand should not be used as the sole basis for treatment orother patient management decisions. Negative results must becombined with clinical observations, patient history, andepidemiological information.This test has not been evaluated for monitoring treatment ofinfection.This test has been authorized by the FDA under an EmergencyUse Authorization (EUA) for use by authorized laboratories.Testing performed on the [employer] GeneXpert utilizingreal-time RT-PCR.All SARS CoV2 and positive influenza A/B results arereported to [facility]. 05/16/2024 3:55 PM EST 05/16/2024 4:00 PM EST Generic External Data Provider LAB MICROBIOLOGY - GENERAL ORDERABLES Final Result Performing Organization Address [facility] de Phone Number [facility] [address] [place] [phone] * High Sensitivity Troponin I (05/16/2024 3:55 PM EST) [facility] TROPONIN I HIGH SENSITIVITY 7.7 <3.5 - 17.0 ng/L [facility] Comment:The [place] high sens itivity Troponin-I results should beused in conjunction with other diagnostic information suchas ECG, clinical observations and information, and patientsymptoms to aid in the diagnosis of [place]. 05/16/2024 3:55 PM EST 05/16/2024 4:00 PM EST Generic External Data Provider LAB BLOOD ORDERAB LES Final Result Performing Organization Address [facility] Phone Number [facility] [address] [place] [phone] * Magnesium (05/16/2024 3:55 PM EST) [facility] Magnesium 1.8 1.6 - 2.6 mg/dL [facility] 05/16/2024 3:55 PM EST 05/16/2024 4:00 PM EST Generic External Data Provider LAB BLOOD ORDERAB LES Final Result Performing Organization Address [facility] Phone Number [facility] [address] [place] [phone] * (ABNORMAL) Comprehensive Metabolic Panel (05/16/2024 3:55 PM EST) [facility] Sodium 141 135 - 145 mmol/L [facility] Potassium 3.1(L) 3.3 - 5.1 mmol/L [facility] Chloride 102 96 - 108 mmol/L [facility] Carbon Dioxide 27 22 - 29 mmol/L [facility] Anion Gap 15 12 - 20 [facility] Urea Nitrogen (BUN) 10 9 - 16 mg/dL [facility] Creatinine, Serum 0.60 0.5 - 1.4 mg/dL [facility] Creatinine Clr Calc Pharmacy 74.6 [facility] Comment:Provided height and weight: 152.4 cm,71.2 kg.eGFR (calculated from the MDRD study equation) and eCrCl(calculated from the Cockcroft-Gault equation) are based ondifferent parameters and may not yield comparable results.If eCrCl result is absurd, please check patient'sheight/weight. Estimated Glomerular Filt Rate >60 [facility] Comment:Chronic Kidney Disea se: Estimated GFR < 60 mL/min/1.83v7Xsfnhr Kidney Disease: Estimated GFR < 15 mL/min/1.73m2 Glucose 123(H) 60 - 115 mg/dL [facility] Calcium 9.2 8.4 - 10.2 mg/dL [facility] Bilirubin, Total 0.4 0.0 - 1.0 mg/dL [facility] Aspartate Amino Transferase 35(H) 5 - 31 U/L [facility] Alanine Aminotransferase 16 0 - 31 U/L [facility] Total Protein 8.1(H) 6.5 - 8.0 g/dL [facility] Albumin Level 3.9 3.5 - 5.0 g/dL [facility] Alkaline Phosphatase 62 39 - 117 U/L [facility] 05/16/2024 3:55 PM EST 05/16/2024 4:00 PM EST us Generic External Data Provider LAB BLOOD ORDERAB LES Final Result [facility] [address], [place] [phone] * B Type Natriuretic Peptide (BNP) (05/16/2024 3:55 PM EST) B Type Natriuretic Peptide 31 <100 pg/mL [facility] Comment:For those patients w ho are being treated with Natrecor(nesiritide, recombinant BNP), BNP testing should beperformed at least two hours post treatment in order toensure that only endogenous levels of BNP are detected. 05/16/2024 3:55 PM EST 05/16/2024 4:00 PM EST Generic External Data Provider LAB BLOOD ORDERAB LES Final Result Performing Organization Address [facility] de Phone Number [facility] [address] [place] [phone] * Prothrombin Time-INR (05/16/2024 3:55 PM EST) Prothrombin Time 11.9 10.9 - 12.4 SEC [facility] INTERNATIONAL NORM RATIO 1.0 0.9 - 1.1 [facility] Comment:INTERNATIONAL NORMAL IZED RATIO (INR) REFERENCE RANGES Reference RangeFor patients not on anticoagulant therapy: 0.9 - 1.1INR ranges for oral anticoagulanttherapy:For prevention and treatment of venous thrombosis and pulmonary embolism: 2.0 - 3.0For acute myocardial infarction with aspirin therapy: 2.0 - 3.0For acute myocardial infarction without aspirin therapy: 3.0 - 4.0For patients with mechanical prosthetic heart valves: 2.5 - 3.5 05/16/2024 3:55 PM EST 05/16/2024 4:00 PM EST Generic External Data Provider LAB BLOOD ORDERAB LES Final Result Performing Organization Address [facility] de Phone Number [facility] [address] [place] [phone] * (ABNORMAL) CBC auto differential (05/16/2024 3:55 PM EST) White Blood Count 6.0 4.8 - 10.8 X10*3/uL [facility] Red Blood Count 3.98(L) 4.20 - 5.50 X10*6/uL [facility] Hemoglobin 13.3 12.0 - 16.0 g/dl [facility] Hematocrit 37.3 37.0 - 47.0 % [facility] Mean Corpuscular Volume 93.7 80.0 - 98.0 fL [facility] Mean Corpuscular Hemoglobin 33.4(H) 27.0 - 33.0 pg [facility] Mean Corpuscular HGB Conc 35.7(H) 31.0 - 35.0 g/dl [facility] Red Cell Distribution Width 12.4 11.0 - 16.0 % [facility] Platelet Count 204 160 - 400 X10*3/uL [facility] Mean Platelet Volume 11.5 9.4 - 12.3 fL [facility] Neutrophils Percent Auto 61.7 45 - 73 % [facility] Imm Gran Pct Auto 0.2 0.0 - 0.4 % [facility] Lymphocytes Percent Auto 29.4 20 - 40 % [facility] Monocytes Percent Auto 5.9 2 - 11 % [facility] Eosinophils Percent Auto 2.5 0 - 4 % [facility] Basophils Percent Auto 0.3 0 - 2 % [facility] NRBC Pct Auto 0.0 0.0 - 0.2 /100WBC [facility] Neutrophils Absolute Auto 3.7 2.0 - 8.3 x10*3/uL [facility] Imm Gran Abs Auto 0.01 0.00 - 0.03 X10*3/uL [facility] Lymphocytes Absolute Auto 1.8 1.2 - 4.9 X10*3/uL [facility] Monocytes Absolute Auto 0.4 0.1 - 1.2 X10*3/uL [facility] Eosinophils Absolute Auto 0.2 0.0 - 0.4 X10*3/uL [facility] Basophils Absolute Auto 0.0 0.0 - 0.2 X10*3/uL [facility] NRBC Abs Auto 0.000 0.0 - 0.012 X10*3/uL [facility] 05/16/2024 3:55 PM EST 05/16/2024 4:00 PM EST us Generic External Data Provider LAB BLOOD ORDERAB LES Final Result [facility] [address] [place] [phone] documented in this encounter Visit Diagnoses Not on filedocumented in this encounter Additional Health Concerns Assessment Noted Time PHQ-9 Depression Total Score: 0 07/03/19 24 10:52 AM EDT documented as of this encounter Care Teams Director Physical Therapy Relationship Specialty Start Date End Date Aarti Thacker MD [address] [place] [phone] PCP - General Family Medicine 02/04/20 documented as of this encounter
--- OUTSIDE RECORDS SUMMARY | 2024-05-16 17:23 | XMS_ITS | Encounter Summary ---
Author Organization [employer] Address [address] [facility] 7t [place] [address] Care Team Providers Care Cigar Bander Hand Name Role Phone Aarti Thacker MD Primary Care Provider [phone] Reason for Visit * Reason Onset Date Comments Med Refill 05/06/2024 Encounter Details Date Type Department Care Team (Late st Contact Info) Description 05/06/2024 Refill [facility] MEDICINE [address] [place], [place] [phone] Aarti Thacker MD [address] [place], [place] [phone] DISH (diffuse idiopathic skeletal hyperostosis) Social History [...] encounter Miscellaneous Notes * Telephone Encounter - Annabelle Zelaya - 05/06/2024 3:51 PM EST TC from pt requesting medication refill. Medications needing refill : oxyCODONE-acetaminophen (Percocet) 5-325 MG tablet To be sent to: [facility] Pharm[facility] documented in this encounter Plan of Treatment Upcoming Encounters Date Type Department Care Team (Late st Contact Info) Description 06/25/2024 9:30 AM EDT Telemedicine [facility] MEDICINE [address] [place] [phone] Tyesha Lock, RASHAUN documented as of this [...] documented as of this encounter Care Teams Cigar Bander Hand Relationship Specialty Start Date End Date Aarti Thacker MD [address] [place] [address] PCP - General Family Medicine 02/04/20 documented as of this encounter
--- OUTSIDE RECORDS SUMMARY | 2024-05-16 17:23 | XMS_ITS | Encounter Summary ---
Author Organization [employer] Address [address] [facility] 7t [place] [address] Care Team Providers Care Cigarette Tipper Name Role Phone Aarti Thacker MD Primary Care Provider [phone] Reason for Visit * Reason Onset Date Comments Durable Medical Equipment 04/30/2024 L&C Fo rm: Foot Stool/Cane Encounter Details Date Type Department Care Team (Late st Contact Info) Description 04/30/2024 Telephone [facility] MEDICINE [address] [place] [address] Aarti Thacker MD [address] [place] [address] Durable Medical Equipment (L&C Form: Foot Stool/Cane) Social History Tobacco Use Types Packs/Day Years [...] the past 12 months, has t he [employer], gas, oil or water [employer] threatened to shut off services in your [...] encounter Miscellaneous Notes * Telephone Encounter - Tawana Hill - 04/30/2024 3:03 PM EST Confirmation of order for Foot Stool and Cane from Andrea and jose placed on PCP desk for signature. documented in this encounter Plan of Treatment Upcoming Encounters Date Type Department Care Team (Late st Contact Info) Description 06/25/2024 9:30 AM EDT Telemedicine [facility] MEDICINE [address] [place] [phone] Tyesha Lock, RASHAUN documented as of this [...] documented as of this encounter Care Teams Cigarette Tipper Relationship Specialty Start Date End Date Aarti Thacker MD [address] [place] [address] PCP - General Family Medicine 02/04/20 documented as of this encounter
--- OUTSIDE RECORDS SUMMARY | 2024-05-16 17:23 | XMS_ITS | Encounter Summary ---
Author Organization [facility] Address [address] [facility] 7t [place] [address] Care Team Providers Care Pediatric Hospitalist Name Role Phone Aarti Thacker MD Primary Care Provider [phone] Encounter Details Date Type Department Care Team (Late st Contact Info) Description 11/19/2022 Abstract [facility] MEDICINE [address] [place] [phone] Aarti Thacker MD [address] [place] [address] [phone] Social History Tobacco Use Types Packs/Day Years [...] Info) Description 06/25/2024 9:30 AM EDT Telemedicine [facility] MEDICINE [address] [place] [address] [phone] Tyesha Lock RN documented as of this encounter Visit Diagnoses Not on filedocumented in this encounter Care Teams Pediatric Hospitalist Relationship Specialty Start Date End Date Aarti Thacker MD [address] [place] [address] PCP - General Family Medicine 02/04/20 documented as of this encounter
--- OUTSIDE RECORDS SUMMARY | 2024-05-16 17:23 | XMS_ITS | Encounter Summary ---
Author Organization [employer] [facility] Address [address] [facility] 7t [place] [address] Care Team Providers Care Licensed Land Surveyor Name Role Phone Aarti Thacker MD Primary Care Provider [phone] Reason for Visit * Reason Comments Med Refill Encounter Details Date Type Department Care Team (Late Contact Info) Description 10/20/2022 Refill [facility] [address] [place] [phone] Cristina Mcginnis FNP [address] [place], [place] [phone] Social History Tobacco Use Types Packs/Day Years [...] Description 06/25/2024 9:30 AM EDT Telemedicine [facility] [address] [place] [phone] Tyesha Lock RN documented as of this encounter Visit Diagnoses Not on filedocumented in this encounter Care Teams Licensed Land Surveyor Relationship Specialty Start Date End Date Aarti Thacker MD [address] [place] [address] PCP - General Family Medicine 02/04/20 documented as of this encounter
--- OUTSIDE RECORDS SUMMARY | 2024-05-16 17:23 | XMS_ITS | Encounter Summary ---
Author Organization [facility] Address [address] [facility] 7t [place] [address] Care Team Providers Care Community Service Coordinator Name Role Phone Aarti Thacker MD Primary Care Provider [phone] Reason for Visit * Reason Comments Med Refill Encounter Details Date Type Department Care Team (Late st Contact Info) Description 06/11/2022 Refill [facility] MEDICINE [address] [place] [address] [phone] Aarti Thacker MD [address] [place] [address] [phone] Other chronic pain Social History Tobacco Use [...] Description 06/25/2024 9:30 AM EDT Telemedicine [facility] [address] [place] [address] Tyesha Lock, RN documented as of this encounter Visit Diagnoses Diagnosis Other chronic pain documented in this encounter Care Teams Community Service Coordinator Relationship Specialty Start Date End Date Aarti Thacker MD [address] [place] [address] PCP - General Family Medicine 02/04/20 documented as of this encounter
--- OUTSIDE RECORDS SUMMARY | 2024-05-16 17:23 | XMS_ITS | Encounter Summary ---
Author Organization [employer] Address [address] [facility] [address] 7[address] [place] [address] Care Team Providers Care Pipe Setter Name Role Phone Aarti Thacker MD Primary Care Provider [phone] Encounter Details Date Type Department Care Team ([facility] st Contact Info) Description 05/05/[address] [facility] MEDICINE [address] [place], [place] [phone] Aarti Thacker MD [address] [place], [place] [phone] Social History Tobacco Use Types Packs/Day Years [...] encounter Miscellaneous Notes * Telephone Encounter - Clarice Weiss MA - 05/06/2024 2:34 PM EST Medical necessity form has been signed by PCP and faxed. Form is sent in for scanning. * Telephone Encounter - Clarice Weiss MA - 05/05/2024 10:03 AM EST Received medical necessity form from [employer] for Cane, and foot stool. Form has been filledout and placed on PCP's desk for signature. documented in this encounter Plan of Treatment Upcoming Encounters Date Type Department Care Team (Late st Contact Info) Description 06/25/2024 9:[address] [facility] MEDICINE [address] [place] [address] [phone] Tyesha Lock RN documented as of this encounter Goals Goal Patient Goal Type Associated Problems Recent Progress Patient-Stated? Author Patient will adhere to medication regimen General No Genoveva Jones PharmD Hemoglobin A1c < 7.5 Result Component 6.3( 1:32 PM EST) No Genoveva Jones, BartD documented as of this encounter Visit Diagnoses Not on filedocumented in this encounter Additional Health Concerns Assessment Noted Time PHQ-9 Depression Total Score: 0 07/03/19 24 10:52 AM EDT documented as of this encounter Care Teams Pipe Setter Relationship Specialty Start Date End Date Aarti Thacker MD [address] [place] [phone] PCP - General Family Medicine 02/04/20 documented as of this encounter
--- OUTSIDE RECORDS SUMMARY | 2024-05-16 17:23 | XMS_ITS | Encounter Summary ---
Author Organization [employer] Address [address] [facility] 7t [place] [address] Care Team Providers Care Credit Professional Name Role Phone Aarti Thacker MD Primary Care Provider [phone] Reason for Visit * Reason Onset Date Comments Med Refill 05/06/2024 Encounter Details Date Type Department Care Team (Late st Contact Info) Description 05/06/2024 Refill [facility] MEDICINE [address] [place], [place] [phone] Aarti Thacker MD [address] [place], [place] [phone] Social History Tobacco Use Types Packs/Day Years [...] encounter Miscellaneous Notes * Telephone Encounter - Rachael Carlton LPN - 05/06/2024 3:56 PM EST Last seen 04/13/24. * Telephone Encounter - Annabelle Zelaya - 05/06/2024 3:52 PM EST TC from pt requesting medication refill. Medications needing refill : Ofev 100 MG capsule To be sent to: [facility] Pharmacy documented in this encounter Plan of Treatment Upcoming Encounters Date Type Department Care Team (Late st Contact Info) Description 06/25/2024 9:30 AM EDT Telemedicine [facility] MEDICINE [address] [place] [phone] Tyesha Lock RN documented as of this encounter Goals Goal Patient Goal Type Associated Problems Recent Progress Patient-Stated? Author Patient will adhere to medication regimen General No Genoveva Jones, PharmJamie Hemoglobin A1c < 7.5 Result Component 6.3(01/07/202 5 1:32 PM EST) No Genoveva Jones, PharmD documented as of this encounter Visit Diagnoses Not on filedocumented in this encounter Additional Health Concerns Assessment Noted Time PHQ-9 Depression Total Score: 0 07/03/19 24 10:52 AM EDT documented as of this encounter Care Teams Credit Professional Relationship Specialty Start Date End Date Aarti Thacker MD [address] [place] [address] PCP - General Family Medicine 02/04/20 documented as of this encounter
--- OUTSIDE RECORDS SUMMARY | 2024-05-16 17:23 | XMS_ITS ---
Author Organization [employer] [facility] Address [address] [facility] 7t [place] [address] Care Team Providers Care Meterman Name Role Phone Aarti Thacker MD Primary Care Provider [phone] PNEUMATIC DEICER INSPECTOR Status:Enrolled (Active) Start date:05/07/2022 Enrollment date:05/07/2022 Enrollment reason:Identified using pharmacy data Current support & services provided:Tier 4 (PNEUMATIC DEICER INSPECTOR) Case Team Name Relationship Phone Tyesha Lock RN Registered Nurse(Responsible Sta ff) Continued Care and Services Coordination
--- OUTSIDE RECORDS SUMMARY | 2024-05-16 17:23 | XMS_ITS | Encounter Summary ---
Author Organization [email or web address] [facility] Address [address] [facility] 7t [place] [address] Care Team Providers Care Motorized Squad Commanding Officer Name Role Phone Aarti Thacker MD Primary Care Provider [phone] Encounter Details Date Type Department Care Team (Latest Contact Info) Description 08/03/2018 Abstract [facility] CONVERSIONS Dental, Provider, DDS Social History [...] Info) Description 06/25/2024 9:30 AM EDT Telemedicine [facility] MEDICINE [address] [place] [address] Tyesha Lock, RASHAUN documented as of this encounter Visit Diagnoses Not on filedocumented in this encounter Care Teams Motorized Squad Commanding Officer Relationship Specialty Start Date End Date Aarti Thacker MD [address] [place] [address] PCP - General Family Medicine 02/04/20 documented as of this encounter
--- OUTSIDE RECORDS SUMMARY | 2024-05-16 17:23 | XMS_ITS | Encounter Summary ---
Author Organization [employer] Address [address] [facility] [address] [place] [address] Care Team Providers Care Industrial Gas Fitter Name Role Phone Aarti Thacker MD Primary Care Provider [phone] Reason for Visit * Reason Onset Date Comments Hospital Follow-up 03/11/2024 Encounter Details Date Type Department Care Team ([facility] st Contact Info) Description 03/11/2024 Telephone [facility] MEDICINE [address] [place], [place] [phone] Aarti Thacker MD [address] [place], [place] [phone] Hospital Follow-up Social History Tobacco Use Types [...] from pt requesting a HDF appt. Hospital: [facility] Date of admission: 03/04/24 Discharge date: 03/09/24 Diagnosed: Pancarditis *Send message to [facility] Clinical Care Coordinators documented in this encounter Plan of Treatment Upcoming Encounters Date Type Department Care Team (Late st Contact Info) Description 06/25/2024 9:30 AM EDT Telemedicine [facility] MEDICINE [address] [place] [phone] Tyesha Lock, RN documented as of this [...] documented as of this encounter Care Teams Industrial Gas Fitter Relationship Specialty Start Date End Date Aarti Thacker MD [address] [place] [address] PCP - General Family Medicine 02/04/20 documented as of this encounter
--- OUTSIDE RECORDS SUMMARY | 2024-05-16 17:23 | XMS_ITS | Encounter Summary ---
Author Organization [employer] Address [address] [place] [address] Care Team Providers Care Mobile Sales Technician Name Role Phone Aarti Thacker MD Primary Care Provider [phone] Encounter Details Date Type Department Care Team ([facility] st Contact Info) Description 04/05/2024 Telephone [facility] MEDICINE [address] [place], [place] [phone] Aarti Thacker MD [address] [place], [place] [phone] Social History Tobacco Use Types Packs/Day Years [...] EDT Telemedicine [facility] MEDICINE [address] [place] [address] Tyesha Lock, RASHAUN documented as of this [...] documented as of this encounter Care Teams Mobile Sales Technician Relationship Specialty Start Date End Date Aarti Thacker MD [address] [place] [address] PCP - General Family Medicine 02/04/20 documented as of this encounter
--- OUTSIDE RECORDS SUMMARY | 2024-05-16 17:23 | XMS_ITS | Clinical Summary ---
Author Organization [employer] Address [address] [facility] [address] [place] [address] Care Team Providers Care Bowling Floor Desk Clerk Name Role Phone Aarti Thacker MD Primary Care Provider [phone] Allergies Active Allergy Reactions Criticality Noted Date [...] hyperglycemia, without long-term current use of insulin ([facility]) TEST BLOOD SUGAR TWICE DAILY 100 strip 11 Active TRUEplus Lancets 33G miscIndications:T ype 2 diabetes mellitus with hyperglycemia, without long-term current use of insulin ([facility]) TEST BLOOD SUGAR TWICE DAILY 100 each [...] hyperglycemia, without long-term current use of insulin ([facility]) TAKE 1 TABLET BY MOUTH EVERY MORNING [...] AND VOMITING FOR 30 DAYS Active pancrelipase, Nhq-Eglf-Pvrm, (Creon) 49438-86092 units capsule Take 2 capsules by mouth 2 times daily. Active ibuprofen 800 MG tablet TAKE 1 TABLET BY MOUTH THREE TIMES DAILY 90 tablet 1 Active cyanocobalamin (Vitamin B-12) 1000 MCG tablet TAKE 1 TABLET BY MOUTH EVERY MORNING 90 tablet 3 Active gabapentin (Neurontin) 100 MG capsuleIndication s:Diabetic polyneuropathy associated with type 2 diabetes mellitus (CMS/HCC) Take 2 capsules (200 mg) by mouth 2 times daily. 120 capsule 11 024 2024 Active aspirin (Aspirin Low Dose) 81 MG EC tablet TAKE 1 TABLET BY MOUTH EVERY EVENING 90 tablet 3 Active melatonin 5 MG tablet TAKE 2 TABLETS BY MOUTH EVERY DAY AT BEDTIME 180 tablet 1 Active Ofev 100 MG capsule TAKE 1 CAPSULE BY MOUTH EVERY 12 HOURS 60 capsule Active oxyCODONE-acetami nophen (Percocet) 5-325 MG tabletIndications :DISH (diffuse idiopathic skeletal hyperostosis) Take 1 tablet by mouth every 8 (eight) hours if needed for severe pain for up to 28 days. 84 tablet 025 2024 Active oseltamivir (Tamiflu) 75 MG capsuleIndication s:Influenza A Take 1 capsule (75 mg) by mouth 2 times daily for 5 days. 10 capsule 025 2024 Active Ofev 100 MG capsule Take 1 capsule by mouth every 12 (twelve) hours. 60 capsule 025 2024 Discontinued(R eorder (will not trigger notification to Pharmacy)) oxyCODONE-acetami nophen (Percocet) 5-325 MG tabletIndications :DISH (diffuse idiopathic skeletal hyperostosis) Take 1 tablet by mouth every 8 (eight) hours if needed for severe pain for up to 28 days. 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 and pt understands risks and benefits of medication Feels back pain is worsening, and radiating into hip and down leg Will obtain DEXA (age > 65, post menopause, and snf steroid use) and disposition to rheum/ortho after [...] Encounters Date Type Department Care Team Description 05/16/2024 Orders Only GENERIC EXTERNAL DATA DEPARTMENT Provider, Generic External Data 05/13/2024 11:20 AM EST Office Visit [facility] [address] [place] [address] Renae Sandhu MD Influenza A (Primary Dx); Cough in adult patient 05/06/2024 Refill [facility] [address] [place] [address] Aarti Thacker MD 05/06/2024 Refill [facility] [address] [place] [phone] Aarti Thacker MD DISH (diffuse idiopathic skeletal hyperostosis) 05/05/2024 Telephone [facility] [address] [place] [phone] Aarti Thacker MD 04/30/[address] [address] Aarti Thacker MD Durable Medical Equipment (L&C Form: Foot Stool/Cane) 04/13/2024 11:00 AM EST Office Visit [facility] [address] [place] [phone] Aarti Thacker MD Diabetic polyneuropathy associated with type 2 diabetes mellitus (CMS/HCC) (Primary Dx); Chronic diastolic heart failure (CMS/HCC); Interstitial lung disease (CMS/HCC); Acute pancreatitis, unspecified complication status, unspecified pancreatitis type 04/13/2024 Travel 04/09/2024 9:00 AM EST Telemedicine [facility] [address] [place] [phone] Tyesha Lock RN Chronic pain syndrome 04/09/2024 Refill [facility] [address] [place] [phone] Tyesha Lock RN DISH (diffuse idiopathic skeletal hyperostosis) 04/09/2024 Travel 04/09/2024 Telephone [facility] [address] [place] [phone] Tyesha Lock RN Recommend HEEL BUILDER Tele Tier 2 04/08/2024 Refill [facility] [address] [place] [phone] Aarti Thacker MD 04/08/2024 Refill [facility] [address] [place] [phone] Aarti Thacker MD DISH (diffuse idiopathic skeletal hyperostosis) 04/05/[address] [address] Aarti Thacker MD 03/30/2024 1:15 PM EST Office Visit [address] [address] Renae Sandhu MD Acute pancreatitis without infection or necrosis, unspecified pancreatitis type (Primary Dx); Type 2 diabetes mellitus with hyperglycemia, without long-term current use of insulin ([facility]); Essential hypertension 03/30/2024 Travel 03/11/2024 Patient Outreach [address] [address] Aarti Thacker MD Transition Of Care (Tcm) (HDF- scheduled and SDOH screening on 07/03/2023) 03/11/[address] [address] Aarti Thacker MD Hospital Follow-up 03/11/[address] [address] Aarti Thacker MD DISH (diffuse idiopathic skeletal hyperostosis) 03/04/2024 Orders Only GENERIC EXTERNAL DATA DEPARTMENT Provider, Generic External Data 02/25/2024 Refill [facility] [address] [place] [address] Aarti Thacker MD from Last 3 Months Immunizations Name Administration [...] Sign Reading Time Taken Comments Blood Pressure 150/90 05/13/2024 11:11 AM EST Pulse 90 05/13/2024 11:11 AM EST Temperature 38.2 ??C (100.8 ??F) 05/13/2024 11:11 AM EST Respiratory Rate 18 05/13/2024 11:11 AM EST Oxygen Saturation 98% 03/30/2024 1:29 PM EST Inhaled Oxygen Concentration - - Weight 72.3 kg (159 lb 6.4 oz) 05/13/2024 11:11 AM EST Height 152.4 cm (5') 05/13/2024 11:11 AM EST Body Mass Index 31.13 05/13/2024 11:11 AM EST Plan of Treatment Upcoming Encounters Date Type Department Care Team (Late st Contact Info) Description 06/25/2024 9:30 AM EDT Telemedicine [facility] [address] [place] [phone] Tyesha Lock, RN Health Maintenance Due Date [...] 2024 12/17/2023, 12/24/2021, 02/14/2021, Additional history exists Diabetes: Hemoglobin A1C 06/28/2024 025, 12/01/2023, 07/03/2023, Additional history exists Alcohol/Substance Use Screening 07/02/2024 07/03/2023 Depression Screening 07/02/2024 07/03/2023, 07/03/19 Diabetes: Urine Protein Screening 07/02/2024 07/03/2023, 03/26/2021 Lipid Panel 07/02/2024 07/03/2023, 03/26/2021 SDOH Screening 07/02/2024 07/03/2023 Mammogram 10/15/2024 10/16/2023, 09/21, 08/14/2021, Additional history exists Tobacco Screening 04/13/2025 04/13/2024 Colonoscopy 12/22/2025 12/22/2020 Colorectal Cancer Screening 12/22/2025 Hepatitis B Vaccines Completed 12/21/2002, 07/16/2002, 06/16/2002 Pneumococcal Vaccine: 50+ Years Completed 12/20/2022, 03/08/2005 Hepatitis C Screening [...] TROPONIN I Routine 05/16/2024 3:55 PM EST MAGNESIUM Routine 05/16/2024 3:55 PM EST COMPREHENSIVE METABOLIC PANEL Routine 05/16/2024 3:55 PM EST B TYPE NATRIURETIC PEPTIDE (BNP) Routine 05/16/2024 3:55 PM EST PROTHROMBIN TIME-INR Routine 05/16/2024 3:55 PM EST CBC WITH AUTO DIFFERENTIAL Routine 05/16/2024 3:55 PM EST SARS COV2/INFLUENZA A/B AND RSV RNA QL NAAT Routine 05/16/2024 3:55 PM EST POCT RAPID COVID ANTIGEN Routine 05/13/2024 11:18 AM EST Cough in adult patient POCT INFLUENZA B (ID NOW RAPID MOLECULAR) Routine 05/13/2024 11:17 AM EST Cough in adult patient POCT INFLUENZA A (ID NOW RAPID MOLECULAR) Routine 05/13/2024 11:17 AM EST Cough in adult patient POCT GLYCATED HEMOGLOBIN, TOTAL Routine 03/30/2024 1:32 [...] without long-term current use of insulin (CMS/HCC) HM COLONOSCOPY Routine 12/22/2020 from Last 3 Months or Most Recently Relevant to Health Maintenance Results * XR Chest 2 Views (05/16/2024 4:25 PM EST) Only the most recent of2 resultswithin the time period is included. Anatomical Region Laterality Modality Chest Radiographic Mayte ging 05/16/2024 4:25 PM EST Narrative 05/16/2024 4:27 PM EST ? [facility] ?[address] ?[place] [address] ?XRay Report ? Signed ? Patient: Luis Angel Lisbeth,Snehal L ?MR#: ?? [id number] ? : 1950 ?Acct:[id number] ? Age/Sex: 74 / F ?ADM Date: 05/16/24 ? Loc: HO.ED ? Attending Dr: ? Ordering Physician: Kalina Causey CNP ?? Date of Service: 05/16/24 ?? Procedure(s): XR chest 2V ?? Accession Number(s): [id number] ? cc: Kalina Causey CNP; Aarti Thacker [...] in OV> ? 05/16/24 1626 ? DD/ 1625 ? TD/TT: 05/16/24 1625 ? Sign Maintenance: ? Procedure Note Marcie, Image - 05/16/2024 [place] [address] XRay Report Signed Patient: Snehal Ryan LMR#: [id number] : 1950cct:[id number] Age/Sex: 74 / FADM Date: 05/16/24 Loc: HO.ED Attending Dr: Ordering Physician: Kalina Causey CNP Date of Service: 05/16/24 Procedure(s): XR chest 2V Accession Number(s): [id number] cc: Kalina Causey CNP; Aarti Thacker CLINICAL HISTORY: sob, cough 2 view chest x-ray Comparison: None Findings: Mild patchy bilateral perihilar opacity. Normal size heart. No acute fracture. IMPRESSION: Mild atypical pneumonia. This document has been electronically signed by: Rd Ladd MD on 05/16/2024 16:25:42 Dictated By: Rd Ladd MD Signed By: <Electronically signed by Rd Ladd MD in OV> 05/16/24 1626 DD/ 1625 TD/TT: 05/16/24 162 Sign Maintenance: [facility] External Provider IMG XR PROCEDURES Final Result * High Sensitivity Troponin I (05/16/2024 3:55 PM EST) Only the most recent of2 resultswithin the time period is included. Pathologist [facility] TROPONIN I HIGH SENSITIVITY 7.7 <3.5 - 17.0 ng/L [facility] Comment:The Benitez high sens itivity Troponin-I results should beused in conjunction with other diagnostic information suchas ECG, clinical observations and information, and patientsymptoms to aid in the diagnosis of NM. 05/16/2024 3:55 PM EST 05/16/2024 4:00 PM EST Generic External Data Provider LAB BLOOD ORDERAB LES Final Result [facility] [address] [place] [phone] * (ABNORMAL) SARS-CoV-2 RNA, Influenza A/B, and RSV RNA, Ql NAAT (05/16/2024 3:55 PM EST) [facility] Influenza A PCR POSITIVE(A) Negative [facility] Influenza B PCR NEGATIVE Negative [facility] Resp Syncy Virus RNA Qual PCR NEGATIVE Negative [facility] SARS COV2 PCR NEGATIVE Negative [facility] Comment:All test results mus t [...] use by authorized laboratories.Testing performed on the Cepheid GeneXpert utilizingreal-time RT-PCR.All SARS CoV2 and positive influenza A/B results arereported to [facility]. 05/16/2024 3:55 PM EST 05/16/2024 4:00 PM EST us Generic External Data Provider LAB MICROBIOLOGY - GENERAL ORDERABLES Final Result [facility] [address] [place] [address] [phone] * (ABNORMAL) CBC auto differential (05/16/2024 3:55 PM EST) Only the most recent of2 resultswithin the time period is included. White Blood Count 6.0 4.8 - 10.8 X10*3/uL [facility] Red Blood Count 3.98(L) 4.20 - 5.50 X10*6/uL [facility] Hemoglobin 13.3 12.0 - 16.0 g/dl [facility] Hematocrit 37.3 37.0 - 47.0 % [facility] Mean Corpuscular Volume 93.7 80.0 - 98.0 fL [facility] Mean Corpuscular Hemoglobin 33.4(H) 27.0 - 33.0 pg [facility] Mean Corpuscular HGB Conc 35.7(H) 31.0 - 35.0 g/dl [facility] Red Cell Distribution Width 12.4 11.0 - 16.0 % [facility] Platelet Count 204 160 - 400 X10*3/uL [facility] Mean Platelet Volume 11.5 9.4 - 12.3 fL [facility] Neutrophils Percent Auto 61.7 45 - 73 % [facility] Imm Gran Pct Auto 0.2 0.0 - 0.4 % [facility] Lymphocytes Percent Auto 29.4 20 - 40 % [facility] Monocytes Percent Auto 5.9 2 - 11 % [facility] Eosinophils Percent Auto 2.5 0 - 4 % [facility] Basophils Percent Auto 0.3 0 - 2 % [facility] NRBC Pct Auto 0.0 0.0 - 0.2 /100WBC [facility] Neutrophils Absolute Auto 3.7 2.0 - 8.3 x10*3/uL [facility] Imm Gran Abs Auto 0.01 0.00 - 0.03 X10*3/uL [facility] Lymphocytes Absolute Auto 1.8 1.2 - 4.9 X10*3/uL [facility] Monocytes Absolute Auto 0.4 0.1 - 1.2 X10*3/uL [facility] Eosinophils Absolute Auto 0.2 0.0 - 0.4 X10*3/uL [facility] Basophils Absolute Auto 0.0 0.0 - 0.2 X10*3/uL [facility] NRBC Abs Auto 0.000 0.0 - 0.012 X10*3/uL [facility] 05/16/2024 3:55 PM EST 05/16/2024 4:00 PM EST us Generic External Data Provider LAB BLOOD ORDERAB LES Final Result [facility] [address] [place] [phone] * Prothrombin Time-INR (05/16/2024 3:55 PM EST) Prothrombin Time 11.9 10.9 - 12.4 SEC [facility] INTERNATIONAL NORM RATIO 1.0 0.9 - 1.1 [facility] Comment:INTERNATIONAL NORMAL IZED RATIO (INR) REFERENCE [...] ORDERAB LES Final Result Performing Organization Address [facility] Co de Phone Number [facility] [address] [place] [phone] * B Type Natriuretic Peptide (BNP) (05/16/2024 3:55 PM EST) [facility] B Type Natriuretic Peptide 31 <100 pg/mL [facility] Comment:For those patients w ho are being treated with Natrecor(nesiritide, recombinant BNP), BNP testing should beperformed at least two hours post treatment in order toensure that only endogenous levels of BNP are detected. 05/16/2024 3:55 PM EST 05/16/2024 4:00 PM EST Generic External Data Provider LAB BLOOD ORDERAB LES Final Result Performing Organization Address [facility] Co de Phone Number [facility] [address] [place] [phone] * Magnesium (05/16/2024 3:55 PM EST) Only the most recent of2 resultswithin the time period is included. [facility] Magnesium 1.8 1.6 - 2.6 mg/dL [facility] 05/16/2024 3:55 PM EST 05/16/2024 4:00 PM EST Generic External Data Provider LAB BLOOD ORDERAB LES Final Result Performing Organization Address [facility] de Phone Number [facility] [address] [place] [phone] * (ABNORMAL) Comprehensive Metabolic Panel (05/16/2024 3:55 PM EST) Only the most recent of2 resultswithin the time period is included. [facility] Sodium 141 135 - 145 mmol/L [facility] Potassium 3.1(L) 3.3 - 5.1 mmol/L [facility] Chloride 102 96 - 108 mmol/L [facility] Carbon Dioxide 27 22 - 29 mmol/L [facility] Anion Gap 15 12 - 20 [facility] Urea Nitrogen (BUN) 10 9 - 16 mg/dL [facility] Creatinine, Serum 0.60 0.5 - 1.4 mg/dL [facility] Creatinine Clr Calc Pharmacy 74.6 [facility] Comment:Provided height and weight: 152.4 cm,71.2 kg.eGFR (calculated from the MDRD study equation) and eCrCl(calculated from the Cockcroft-Gault equation) are based ondifferent parameters and may not yield comparable results.If eCrCl result is absurd, please check patient'sheight/weight. Estimated Glomerular Filt Rate >60 [facility] Comment:Chronic Kidney Disea se: Estimated GFR < 60 mL/min/1.45l4Jkhwsl Kidney Disease: Estimated GFR < 15 mL/min/1.73m2 Glucose 123(H) 60 - 115 mg/dL [facility] Calcium 9.2 8.4 - 10.2 mg/dL [facility] Bilirubin, Total 0.4 0.0 - 1.0 mg/dL [facility] Aspartate Amino Transferase 35(H) 5 - 31 U/L [facility] Alanine Aminotransferase 16 0 - 31 U/L [facility] Total Protein 8.1(H) 6.5 - 8.0 g/dL [facility] Albumin Level 3.9 3.5 - 5.0 g/dL [facility] Alkaline Phosphatase 62 39 - 117 U/L [facility] 05/16/2024 3:55 PM EST 05/16/2024 4:00 PM EST us Generic External Data Provider LAB BLOOD ORDERAB LES Final Result [facility] [address] [place] [address] [phone] * POCT Rapid Covid-19 BinaxNOW (05/13/2024 11:18 AM EST) Rapid COVID Ag Negative Swab 05/13/2024 11:1 8 AM EST us Renae Fuller MD POINT OF CARE TEST EN TER/EDIT ORDERABLES Final Result * POCT Rapid Influenza B BENITEZ ID NOW (05/13/2024 11:17 AM EST) Pathologist [facility] Influenza B Negative Negative, Indeterminate [facility] Swab 05/13/2024 11:1 7 AM EST Result Nicole Fuller MD POINT OF CARE TEST EN TER/EDIT ORDERABLES Final Result Performing Organization Address [facility]/ZIP Co de Phone Number [facility] [address] [place] [phone] * (ABNORMAL) POCT Rapid Influenza A BENITEZ ID NOW (05/13/2024 11:17 AM EST) Pathologist [facility] Influenza A Positive( A) Negative, Indeterminate [facility] Swab 05/13/2024 11:1 7 AM EST us Renae Fuller MD POINT OF CARE TEST EN TER/EDIT ORDERABLES Final Result Performing Organization Address City/[facility]/ZIP Co de Phone Number [facility] [address] [place] [phone] * (ABNORMAL) POCT HGB A1C (03/30/2024 1:32 PM EST) [facility] Hemoglobin A1C 6.3(A) 4.0 - 6.0 % QC Media Lot # [id number] Lot# Expiration Date Blood 03/30/2024 1:32 PM EST Result Nicole Fuller MD POINT OF CARE TEST EN TER/EDIT ORDERABLES Final Result * POCT Glucose (03/30/2024 1:32 PM EST) Glucose Blood, POC 88 60 - 200 mg/dL Blood Capillary blood specimen / Unknown 03/30/2024 1:32 PM EST us Viola Param Fuller MD POINT OF CARE TEST EN TER/EDIT ORDERABLES Final Result * MR Abdomen w/ and w/o Contrast (03/07/2024 11:31 AM EST) Anatomical Region Laterality Modality Abdomen Magnetic Resonan ce 03/07/2024 11:3 1 AM EST Narrative 03/09/2024 1:39 PM EST ? [facility] ?[address] ?[place] [address] ? Magnetic Resonance Report ? Signed ? Patient: Luis Angel Lisbeth,Snehal L ?MR#: ?? [id number] ? : 1950 ?Acct:[id number] ? Age/Sex: 73 / F ?ADM Date: 03/05/24 ? Loc: HO.S3 ?360-1 ? Attending Dr: Earle Gan MD ? Ordering Physician: Keyur Alfred MD ?? Date of Service: 03/07/24 ?? Procedure(s): MR abdomen wo/w con ?? Accession Number(s): [id number] ? cc: Aarti Thacker; Keyur Alfred MD [...] effusions. ? Electronically signed by: ??Wolfgang Zaina LEMUS ??03/09/2024 01:36 PM EST ?? RP ? Dictated By: ?Achanaril,Wolfgang ? Signed By: ?<Electronically signed by Wolfgang Achanaril in OV> ?03/09/24 1336 ? DD/ 1131 ? TD/TT: 03/07/24 1151 ? Sign Maintenance: ? Procedure Note Marcie, Pooja - 03/09/[address] [place] [address] Magnetic Resonance Report Signed Patient: Snehal Ryan LMR#: [id number] : 3Acct:[id number] Age/Sex: 73 / FADM Date: 03/05/24 Loc: HO.S3 360-[address]: Earle Gan MD Ordering Physician: Keyur Alfred MD Date of Service: 03/07/24 Procedure(s): MR abdomen wo/w con Accession Number(s): [id number] cc: Aarti Thacker; Keyur Alfred MD EXAMINATION: [...] Wolfgang Mahajan MD 03/09/2024 01:36 PM EST RP Dictated By: Wolfgang Mahajan Signed By: <Electronically signed by Wolfgang Mahajan in OV> 03/09/24 1336 DD/ 1131 TD/TT: 03/07/24 1151 Sign Maintenance: [facility] External Provider IMG MRI PROCEDURES Final Result * CT Abdomen Pelvis w/o Contrast (03/04/2024 7:02 PM EST) Anatomical Region Laterality Modality Body, Pelvis, Abdomen Computed T omography 03/04/2024 7:02 PM EST Narrative 03/05/2024 2:24 AM EST ? [facility] ?[address] ?[place] [address] ? CT Scan Report ? Signed ? Patient: Snehal Ryan ?MR#: ?? [id number] ? : 1950 ?Acct:[id number] ? Age/Sex: 73 / F ?ADM Date: 03/05/24 ? Loc: HO.S3 ?360-1 ? Attending Dr: Keyur Alfred MD ? Ordering Physician: Omar Mast ?? Date of Service: 03/04/24 ?? Procedure(s): CT abdomen pelvis wo IV con ?? Accession Number(s): [id number] ? cc: Aarti Thacker; Omar Mast ? [...] 03/05/24 0220 ? DD/ 01 ? TD/TT: 03/04/241901 ? Sign Maintenance: JL ? Procedure Note Marcie, Pooja - 03/05/[address] [place] [address] [address] Scan Report Signed Patient: Snehal Ryan LMR#: [id number] : 3Acct:[id number] Age/Sex: 73 / FADM Date: 03/05/24 Loc: .S3 360-[address]: Keyur Alfred MD Ordering Physician: Omar Mast Date of Service: 03/04/24 Procedure(s): CT abdomen pelvis wo IV con Accession Number(s): [id number] cc: Aarti Thacker; Omar Mast EXAMINATION: CT [...] signed by [place] Mi DO in OV> 03/05/24219 DD/ 01 TD/TT: 03/04/241901 Sign Maintenance: OLY us [facility] External Provider IMG CT PROCEDURES Edited Result - Final * Urinalysis w/reflex microscopic (03/04/2024 2:46 PM EST) Color Urine Yellow [facility] Appearance Urine Cloudy [facility] PH 7.0 5.0 - 9.0 [facility] Glucose Urine UA Negative Negative mg/dL [facility] Urine Blood Negative Negative [facility] Specific [place] - Urine 1.020 1.005 - 1.025 [facility] Urine Protein Negative Neg-Trace mg/dL [facility] Urine Ketones 15 Negative mg/dL [facility] Nitrite Urine Negative Negative [facility] Leukocyte Esterase Urine Negative Negative [facility] 03/04/2024 2:46 PM EST 03/04/2024 2:51 PM EST Narrative [facility] - 03/04/2024 2:59 PM EST Urine, Clean Catch Generic External Data Provider LAB URINE ORDERAB LES Final Result [facility] [address] [place] [phone] * HOLD LT BLUE - POSSIBLE COAG (03/04/2024 1:50 PM EST) Hold Lt Blue - Possible Coag SEE NOTE [facility] Comment:Specimen will be hel d untested for 4 hours. Call Hematologyif testing is desired. 03/04/2024 1:50 PM EST 03/04/2024 2:02 PM EST us Generic External Data Provider LAB BLOOD ORDERAB LES Final Result Performing Organization Address [facility] de Phone Number [facility] [address] [place] [phone] * Lipase (03/04/2024 1:50 PM EST) Lipase 14 8 - 78 U/L [facility] 03/04/2024 1:50 PM EST 03/04/2024 2:01 PM EST Generic External Data Provider LAB BLOOD ORDERAB LES Final Result Performing Organization Address [facility] de Phone Number [facility] [address] [place] [phone] * BI Mammogram Screening Tomosynthesis Bilateral (10/16/2023 9:14 AM EDT) Anatomical Region Laterality Modality Breast Bilateral Mammography 10/16/2023 9:14 AM EDT Narrative 11/05/2023 9:00 PM EDT ? [facility] ? [address] ?[place] [address] ? Mammography Report ? Signed ? Patient: Luis Angel Lisbeth,Snehal L ?MR#: ?? [id number] ? : 1950 ?Acct:[id number] ? Age/Sex: 73 / F ?ADM Date: 07/25/24 ? Loc: HO.MAMMO ? Attending Dr: Aarti Thacker MD ? Ordering Physician: Aarti Thacker ?Results: 1Negative ? Date of Service: 10/16/23 ?Follow Up: 1 Year From Orig ?? inal Mammogram ? Procedure(s): MM tomosynthesis screening BI ?? Accession Number(s): [id number] ? cc: Aarti Thacker ? EXAMINATION: ?? [...] MD in OV> ? 11/05/232056 ? DD/ 3 ? TD/TT: ? Sign Maintenance: ? Procedure Note Marcie, Image - 11/05/2023 [facility] [address] [place] [address] [place] [address] Mammography Report Signed Patient: Snehal Ryan LMR#: [id number] : 3Acct:[id number] Age/Sex: 73 / FADM Date: 10/16/23 Loc: MAMMO Attending Dr: Aarti Thacker MD Ordering Physician: Mercy Thackerults: 1Negative Date of Service: 10/16/23Follow Up: 1 Year From [facility] ina Mammogram Procedure(s): MM tomosynthesis screening BI Accession Number(s): [id number] cc: Aarti Thacker EXAMINATION: MM SCREENING DIGITAL BREAST TOMOSYNTHESIS, BILATERAL [...] date for their next mammogram. Dictated By: Alicia Alva MD Signed By: <Electronically signed by Alicia Alva MD in OV> 11/05/232056 DD/ 3 TD/TT: Sign Maintenance: us Aarti Thacker MD IMG BI PROCEDURES Final Result * Albumin, Random Urine W/Creatinine (07/03/2023 12:00 PM EDT) Creatinine, Urine 29.87 mg/dL [facility] Microalbumin Urine <5.0 mg/L [facility] Microalbum Creatinine Ratio Ur TNP <30 ug/mg cr [facility] Comment:Unable to calculate albumin/creatinine ratio due to lowmicroalbumin or creatinine result. Urine (Urine, Random) 07/03/2023 12:00 PM EDT 07/03/2023 1:10 PM EDT Aarti Thacker MD LAB URINE ORDERABLES Final Res ult Performing Organization Address [facility]/ZIP Co de Phone Number [facility] [address] [place] [phone] * Hepatitis C Antibody with Reflex to HCV, RNA, Quantitative, Real-Time PCR (07/03/2023 12:00 PM EDT) Hepatitis C Antibody Nonreactive Nonreactive [facility] Comment:Antibodies to HCV no t detected; does not exclude early acuteHCV infection. Blood Venous blood specimen / Unknown 07/03/2023 12:00 PM EDT 07/03/2023 1:16 PM EDT us Aarti Thacker MD LAB BLOOD ORDERABLES Final Res ult Performing Organization Address [facility]/ZIP Co de Phone Number [facility] [address] [place] [address] [phone] * Lipid Panel, Standard (07/03/2023 12:00 PM EDT) Triglycerides 82 <150 mg/dL [facility] Comment:Desirable Triglyceri de: less than 150 mg/dLBorderline High Triglyceride 150-199 mg/dLHigh Triglyceride: 200-499 mg/dLVery High Triglyceride: greater than or equal to 5OO mg/dL Cholesterol 146 <200 mg/dL [facility] Comment:Desirable Cholestero l: less than 200 mg/dLBorderline High Cholesterol: 200-239 mg/dLHigh Cholesterol: greater than 239 mg/dL LDL Cholesterol Calculated 80 <100 mg/dL [facility] Comment:Desirable LDL: less than 100 mg/dLNear Optimal/Above Optimal LDL: 110- 129 mg/dLBorderline High LDL: 130-159 mg/dLHigh LDL: 160-189 mg/dLVery High LDL: greater than or equal to 190 mg/dL HDL Cholesterol 50 >40 mg/dL [facility] Comment:Desirable HDL: great er than 40 mg/dL Note: This HDL assay may give artificially low results in patients with liver disease. Blood Venous blood specimen / Unknown 07/03/2023 12:00 PM EDT 07/03/2023 1:16 PM EDT Aarti Thacker MD LAB BLOOD ORDERABLES Final Res ult [facility] [address] [place] [phone] * (ABNORMAL) Colonoscopy (12/22/2020) Colonoscopy Abnormal(A ) Normal Historical Provider HEALTH MAINTENANCE Edited Result - Final from Last 3 Months or Most Recently Relevant to Health Maintenance Insurance [facility] Care Teams Bowling Floor Desk Clerk Relationship Specialty Start Date End Date Aarti Thacker MD [address] [place] [address] PCP - General Family Medicine 02/04/20
--- NOTE | 2024-05-16 17:33 | PC.NURSE ---
pt was unable to swallow the potassium, provider to give liquid potassium instead
[2024-05-16] MEDS: Potassium Chloride Packet 20 MEQ PACKET 40 MEQ PO (17:41)
[2024-05-16 17:57] VITALS: BP 178/88; PULSE 92; RESP 18; TEMP 37.3; O2SAT 97
== END 2024-05-16 17:57 | disposition home or self-care (01) ==
PROVIDERS: Nurse Practitioner Family; Emergency Provider Emergency Medicine Emergency Medical Services; PCP General Practice
DX: J18.9 Pneumonia, unspecified organism (principal); J10.1 Influenza due to other identified influenza virus with other respiratory manifestations; E23.2 Diabetes insipidus; R06.02 Shortness of breath; R00.0 Tachycardia, unspecified; Z03.818 Encounter for observation for suspected exposure to other biological agents ruled out; Z79.899 Other long term (current) drug therapy
CPT/HCPCS: 0241U; 36415; 71046; 80053; 83735; 83880; 84484; 85025; 85610; 93005; 99283

== ENCOUNTER → 2024-05-16 15:31 | Outpatient (BNV) | payer OTHER, SELFPAY | PROVIDERS: Emergency Provider Emergency Medicine Emergency Medical Services; PCP General Practice; Visit Provider Internal Medicine | DX: R00.0 Tachycardia, unspecified (principal) | CPT/HCPCS: 93010 ==

== ENCOUNTER → 2024-05-16 15:31 | Outpatient (BNV) | payer OTHER, SELFPAY | PROVIDERS: PCP General Practice; Visit Provider Radiology Diagnostic Radiology | DX: R06.02 Shortness of breath (principal) | CPT/HCPCS: 71046 ==

== ENCOUNTER 2024-06-21 07:10 | Outpatient (AMB) | payer OTHER, SELFPAY ==
--- NOTE | 2024-06-21 07:17 | A.OFFVIS_ITS ---
Vital Signs 06/21/24 07:20 Height 5 ft Weight 151 lb BMI 29.5 BP 156/73 H Blood Pressure Location Lt brachial Position Sitting Pulse 90 Pulse Oximetry (%) 96 Oxygen Delivery Method Room Air Intake Visit Reasons: Hospitalization follow up r/s 05/21 Intake Note: Patient follow up after hospitalization for Pancreatitis. Patient cc: nauseas and vomiting due a medication from her lung, between diarrhea and constipation. Electron Beam Photo Mask Technician Required: Yes Electron Beam Photo Mask Technician Name: Ketty [id number] Allergies morphine (MORPHINE) Allergy (Mild, Verified 06/21/25 10:40) NAUSEA, VOMITING, DIZZINESS, HOT FLASHES Medication List - Last Reconciled 06/21/24 by Pooja Irving MD albuterol sulfate 90 mcg/actuation (Ventolin HFA) 2 inhalations inhalation Q4-6H PRN amlodipine 10 mg PO DAILY aspirin 81 mg PO DAILY atorvastatin 40 mg PO BEDTIME blood sugar diagnostic As directed budesonide-formoterol 160-4.5 mcg/actuation (Symbicort) 2 puffs inhalation BID PRN cholecalciferol (vitamin D3) (Vitamin D3) 50 mcg PO DAILY cyanocobalamin (vitamin B-12) 1,000 mcg PO DAILY furosemide (Lasix) 20 mg PO DAILY PRN 30 days gabapentin 200 mg PO BID lancets As directed lokmvh-rktfodtp-otcmdlo 24,000-76,000 -120,000 unit (Creon) 2 caps PO BID losartan 100 mg PO DAILY melatonin 10 mg PO BEDTIME metformin ER 1,000 mg PO BID metoprolol succinate ER 150 mg PO DAILY mirabegron ER (Myrbetriq) 25 mg PO DAILY nintedanib (Ofev) 100 mg PO Q12H omeprazole 20 mg PO DAILY@0630 oxycodone-acetaminophen 5-325 mg 1 tab PO TID PRN sitagliptin phosphate (Januvia) 50 mg PO DAILY sucralfate 2 grams PO DAILY trazodone 100 mg (2 x 50 mg) PO BEDTIME HPI HPI Hospitalization follow up r/s 05/21: Details: GI clinic visit for this 74 year old Com[place]an-speaking female for FU after hospitalization for acute pancreatitis of unclear etiology 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 Feeling regular, denies abdominal pain Sometimes I have diarrhea and sometimes normal BMs Intermittent nausea, vomting and diarrhea after she takes a medication for her lungs Patient denies symptoms of heartburn, dysphagia, nausea, vomiting, change in appetite or weight. Denies recent change in bowel habits, constipation, diarrhea, black stools or rectal bleeding. Patient denies major cardiac or pulmonary problems, loud snoring or sleep apnea Denies problems with anesthesia in the past. Denies being on chronic anticoagulation. Surgical history significant for cholecystectomy > 20 yrs ago and TAHBSO. Pt denies known family history of pancreatic disease, colon polyps or GI malignancy LABS IN Digital[employer] : Reviewed IMAGING STUDIES: 03/07/24 abd mri showed: 1. Mild edema involving the distal body of the pancreas with surrounding fat stranding again concerning for acute pancreatitis in the appropriate clinical context. No suspicious pancreatic mass. No pancreatic ductal dilation. If there is persistent clinical concern for an underlying mass, follow-up imaging can be considered after resolution of acute episode of pancreatitis. 2. Status post cholecystectomy. Stable chronic dilatation of the common bile duct. No findings to suggest choledocholithiasis. 3. Trace bilateral pleural effusions. 03/05/[address] SCAN SHOWED: 1. Moderate fat stranding surrounding the pancreatic body and tail potentially indicating acute interstitial edematous pancreatitis. No demonstrated peripancreatic fluid collection. Recommend correlation with pancreatic serum markers. 2. Diverticulosis without evidence of diverticulitis. Acute pancreatitis of unclear etiology. No obvious risk factors for pancreatits Pt reports she was started on Ofev 4 months ago for pulmonary fibrosis and denies starting any other new medications (Pancreatitis has been reported as a side effect of Ofev) ENDOSCOPIC STUDIES: 10/2020 COLONOSCOPY SHOWED: Three small to medium sized polyps removed Moderate to severe diverticulosis seen in the left colon Plan: Repeat Colonoscopy interval based on path results - in 3-5 years if polyps are adenomatous and 10 years if polyps are hyperplastic BIOPSIES SHOWED: A. Colon, ascending, polypectomy: Tubular adenoma; negative for high grade dysplasia and carcinoma. B. Colon, random, biopsies: Focal active colitis, nonspecific; negative for features of chronicity, granuloma formation, dysplasia, and carcinoma. C. Colon, transverse, polypectomies: Fragments of tubular adenoma(s); negative for high grade dysplasia and carcinoma. Separate fragments of colonic mucosa with loose granuloma formation; otherwise within normal limits. 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 Hx obtained with the help of an [facility] lang interpreter, Britton. Pt described the pain as a colicky and radiated to the left mid back. Pt denied vomiting, constipation, diarrhea, fevers or chills - she had a BM on which was normal. Her last meal before onset of symptoms was a piece of pizza. Pt reports having similar pain intermittently in the past and never this severe and a cause has not been identified. She denied fever, chills, sweating or a hx of alcohol abuse. Pt takes 2 meals a day and denies recent change in appetite or wt. She gives a hx of constipation alternating with diarrhea. Pt is followed in GI by Jeannine Rendon NP for IBS and bloating and was prescibed Creon for abdominal bloating Pt denied any acute cardiopulmonary or genitourinary symptoms. Pt reports she was started on Ofev 4 months ago for pulmonary fibrosis and denies starting any other new medications In the ED, she was found to have stable vital signs. Labs showed mild leukocytosis of 11.2. Hemoglobin and platelets are normal. There are no electrolyte imbalances. Renal function is normal. LFTs are unremarkable except for slight elevation of AST. Lipase is normal, 14. Troponin is less than 2.7. Urinalysis showed no evidence of UTI. 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 Pt reports having similar pain intermittently in the past and never this severe and a cause has not been identified. Pt is followed in GI by Jeannine Rendon NP for IBS and bloating and was prescibed Creon for abdominal bloating Surgical history significant for cholecystectomy > 20 yrs ago and TAHBSO. Labs showed mild leukocytosis of 11.2. Hemoglobin and platelets are normal. There are no electrolyte imbalances. Renal function is normal. LFTs are unremarkable except for slight elevation of AST. Lipase is normal, 14. Troponin is less than 2.7. RECOMMENDATIONS: 1. Agree with IV fluids, antiemetics and pain medications 2. MR abdomen to rule out occult pancreatic malignancy 3. Clear liquid diet and advance diet as tolerated 3. CEA and CA 19-9 with am labs Pt can FU with Jeannine Rendon NP after discharge (has an appt on 06/16/24) 03/05/[address] SCAN SHOWED: 1. Moderate fat stranding surrounding the pancreatic body and tail potentially indicating acute interstitial edematous pancreatitis. No demonstrated peripancreatic fluid collection. Recommend correlation with pancreatic serum markers. 2. 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 Renal cyst Left flank pain Thoracic spine pain Abnormal chest x-ray Lower abdominal pain JAREK (obstructive sleep apnea) Colon cancer screening Hepatic steatosis JAREK (obstructive sleep apnea) Bibasilar crackles Dyspnea Chronic restrictive lung disease ILD (interstitial lung disease) Memory loss COPD (chronic obstructive pulmonary disease) OAB (overactive bladder) History of postoperative nausea and vomiting Diabetes Insomnia Pulmonary arterial hypertension Surgical History History of cholecystectomy H/O esophagogastroduodenoscopy History of hernia repair History of colonoscopy Family History Father Hx of diabetes insipidus Mother Hx of diabetes insipidus Social History (Reviewed 06/21/25 @ 10:41 by Sherry Oates [facility]) Household Members: Family Housing: Apartment Do you presently have visiting nurse or other home services: Yes Alcohol intake: never Comment: tp refusing bed alarm Patient Tobacco Use Status: Never used Tobacco Years Smoked: 1yr Second Hand Smoke Exposure: No Use of substances other than those prescribed or required for medical reasons: No Are you DNR?: No Advance Directives: No Advance Directives Information Provided: Yes service: No Current occupational status: retired Review of Systems Const All systems reviewed & are unremarkable except as noted in HPI and below Physical Exam Vital Signs: Last Vital Signs Pulse 90 06/21/24 07:20 BP 156/73 H 06/21/24 07:20 Pulse Ox 96 06/21/24 07:20 Oxygen Delivery Method Room Air 06/21/24 07:20 BMI result Body Mass Index 29.5 Const General: healthy appearing and no acute distress Nutritional Appearance: average body habitus Orientation/consciousness: patient oriented x3 Limitations: no limitations HEENT Head: Yes normal to inspection Ears: hearing grossly normal bilaterally Mouth: Normal oral and palatal mucosa present Eyes Sclerae: sclerae normal Pupils: Equal, round and reactive pupils present Neck Neck: Yes normal visual inspection Chest Chest palpation & inspection: normal inspection of the chest Resp Effort & Inspection: normal respiratory effort Auscultation: clear to auscultation bilaterally Cardio Palpation: normal PMI Rate: regular rate Rhythm: regular rhythm Heart sounds: S1 normal heart sound present, S2 normal heart sound present and no murmurs GI Palpation (GI): Soft to palpation, nontender and No hepatosplenomegaly present Auscultation: normal bowel sounds Rectal Exam - Female: deferred Skin General skin exam: no rashes or lesions noted Neuro General: patient oriented x3, gait normal and moves all extremities Cranial nerves: Yes Equal, round and reactive pupils present Psych Appearance: grossly normal Mental Status: mental status grossly normal Assessment & Plan Assessment & Plan (1) Post-cholecystectomy syndrome: 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 Category: Medical (2) Acute pancreatitis: Code(s): K85.90 - Acute pancreatitis without necrosis or infection, unspecified Category: Medical Qualifiers: Pancreatitis type: unspecified pancreatitis type Acute pancreatitis complication: no infection or necrosis Qualified Code(s): K85.90 - Acute pancreatitis without necrosis or infection, unspecified (3) Chronic idiopathic constipation: Code(s): K59.04 - Chronic idiopathic constipation Category: Medical (4) Tubular adenoma of colon: Comment: 2020 scope repeat 5 years Code(s): D12.6 - Benign neoplasm of colon, unspecified Category: Medical (5) Abdominal bloating: Code(s): R14.0 - Abdominal distension (gaseous) Category: Medical Plan 74 year old [place]an-speaking female with GERD, IBS, type 2 diabetes mellitus, COPD, essential hypertension and hyperlipidemia seen in GI for FU after hospitalization in 02/2024 for acute pancreatitis of unclear etiology - likely drug induced, without obvious risk factors for pancreatits Pt reported she was started on Ofev for pulmonary fibrosis 4 months prior to episode of pancreatitis and denied starting any other new medications (Pancreatitis has been reported as a side effect of Ofev) Pt is followed in GI by Jeannine Rendon NP for IBS and bloating and was prescibed Creon for abdominal bloating Surgical history significant for cholecystectomy > 20 yrs ago and TAHBSO. Pt denies known family history of pancreatic disease, colon polyps or GI malignancy 06/21/24 Feeling regular, denies abdominal pain Sometimes I have diarrhea and sometimes normal BMs Intermittent nausea, vomting and diarrhea after she takes a medication for her lungs Patient denies symptoms of heartburn, dysphagia, nausea, vomiting, change in appetite or weight. Denies recent change in bowel habits, constipation, diarrhea, black stools or rectal bleeding. Patient denies major cardiac or pulmonary problems, loud snoring or sleep apnea Denies problems with anesthesia in the past. Denies being on chronic anticoagulation. Patient was advised to schedule an MRI for FU of pancreatitis. She is also due for a colonoscopy for follow-up of colon polyps. Follow-up in 4 months Coding Level of Care Code Est Pt Level 4 (52457) Diagnoses Post-cholecystectomy syndrome K91.5 Acute pancreatitis without infection or necrosis, unspecified pancreatitis type K85.90 Pancreatitis type: unspecified pancreatitis type Acute pancreatitis complication: no infection or necrosis Chronic idiopathic constipation K59.04 Tubular adenoma of colon D12.6 Abdominal bloating R14.0
[2024-06-21 07:20] VITALS: BP 156/73; PULSE 90; O2SAT 96; BMI 29.5
== END 2024-06-21 08:10 | disposition home or self-care (01) ==
LOC: HO.HGI 07:11
PROVIDERS: PCP General Practice; Visit Provider Internal Medicine Gastroenterology
DX: K91.5 Postcholecystectomy syndrome (principal); K85.90 Acute pancreatitis without necrosis or infection, unspecified; K59.04 Chronic idiopathic constipation; D12.6 Benign neoplasm of colon, unspecified; R14.0 Abdominal distension (gaseous)
CPT/HCPCS: 99499

== ENCOUNTER → 2024-06-21 07:10 | Outpatient (BNVA) | payer OTHER, SELFPAY | PROVIDERS: PCP General Practice; Visit Provider Internal Medicine Gastroenterology ==

== ENCOUNTER 2024-07-15 11:27 | Outpatient (REF) | payer OTHER, SELFPAY ==
--- NOTE | ~2024-07-15 | XR_ITS ---
EXAMINATION: XR CHEST CLINICAL INFORMATION: J84.9 - Interstitial pulmonary disease, unspecified COMPARISON: 05/16/2024, 03/04/2024, CT chest 06/23/2023. TECHNIQUE: 2 views of the chest were obtained. FINDINGS: Cardiac, hilar, and mediastinal contours are normal. Mild aortic calcification. Mild elevated right hemidiaphragm, unchanged. Increased interstitial markings throughout both lungs, most prominent in the right upper lung. This has a similar appearance to the prior exam. Chronic interstitial lung disease suspected. No pneumothorax or effusion. No focal osseous or soft tissue abnormality. XR/XR chest 2V IMPRESSION: Stable examination. Findings of chronic interstitial lung disease, most confluent in the right upper lung. Stable elevated right hemidiaphragm. Electronically signed by: Olegario Best MD 07/16/2024 03:04 PM EDT
[2024-07-15 11:39] LABS: MANUAL DIFF FLAG NO
[2024-07-15 12:06] LABS: Basophils Percent Auto 0.8 % (0-2); Eosinophils Absolute Auto 0.1 X10*3/uL (0.0-0.4); Hematocrit 37.2 % (37.0-47.0); Hemoglobin 12.3 g/dl (12.0-16.0); Imm Gran Abs Auto 0.01 X10*3/uL (0.00-0.03); Imm Gran Pct Auto 0.2 % (0.0-0.4); Lymphocytes Absolute Auto 1.8 X10*3/uL (1.2-4.9); Lymphocytes Percent Auto 36.2 % (20-40); Mean Corpuscular HGB Conc 33.1 g/dl (31.0-35.0); Mean Corpuscular Hemoglobin 32.5 pg (27.0-33.0); Mean Corpuscular Volume 98.2 fL (80.0-98.0); Mean Platelet Volume 11.6 fL (9.4-12.3); Monocytes Absolute Auto 0.3 X10*3/uL (0.1-1.2); Monocytes Percent Auto 5.1 % (2-11); Neutrophils Absolute Auto 2.8 x10*3/uL (2.0-8.3); Neutrophils Percent Auto 56.7 % (45-73); Platelet Count 203 X10*3/uL (160-400); Red Blood Count 3.79 X10*6/uL (4.20-5.50); White Blood Count 4.9 X10*3/uL (4.8-10.8)
[2024-07-15 12:39] LABS: Alanine Aminotransferase 17 U/L (0-31); Albumin Level 3.8 g/dL (3.5-5.0); Alkaline Phosphatase 75 U/L (39-117); Anion Gap 7 (12-20); Aspartate Amino Transferase 25 U/L (5-31); Bilirubin Direct 0.2 mg/dL (0.0-0.5); Bilirubin Total 0.4 mg/dL (0.0-1.0); Blood Urea Nitrogen 14 mg/dL (9-16); Calcium 9.2 mg/dL (8.4-10.2); Carbon Dioxide 33 mmol/L (22-29); Chloride 105 mmol/L (96-108); Estimated Glomerular Filt Rate > 60; Glucose Random 159 mg/dL (60-115); Lipase 10 U/L (8-78); Potassium 3.9 mmol/L (3.3-5.1); Sodium 141 mmol/L (135-145)
--- OUTSIDE RECORDS SUMMARY | 2024-07-15 13:46 | XMS_ITS | Encounter Summary ---
Author Organization [facility] Address [address] [facility] [address]t [place] [address] Care Team Providers Care Cell Geneticist Name Role Phone Aarti Thacker MD Primary Care Provider [phone] Encounter Details Date Type Department Care Team (Latest Contact Info) Description 08/03/2018 Abstract [facility] CONVERSIONS Dental, Provider, DDS Social History Tobacco [...] Care Team (Late st Contact Info) Description 08/23/2024 3:45 PM EDT Office Visit [facility] [address] [place] [phone] Aarti Thacker MD [address] [place] [phone] 09/03/2024 9:30 AM EDT Telemedicine [facility] [address] [place] [phone] Tyesha Lock, RASHAUN documented as of this encounter Visit Diagnoses Not on filedocumented in this encounter Care Teams Cell Geneticist Relationship Specialty Start Date End Date Aarti Thacker MD [address] [place] [address] [phone] PCP - General Family Medicine 02/04/20 documented as of this encounter
--- OUTSIDE RECORDS SUMMARY | 2024-07-15 13:46 | XMS_ITS | Encounter Summary ---
Author Organization [address] [facility] Address [address] [facility] [address] [place] [address] Care Team Providers Care Incubator Tender Name Role Phone Aarti Thacker MD Primary Care Provider [phone] Reason for Visit * Reason Comments Med Refill Encounter Details Date Type Department Care Team (Late Contact Info) Description 10/20/2022 Refill [facility] [address] [place] [phone] Cristina Mcginnis FNP [address] [place], [place] [phone] Social History Tobacco Use Types Packs/Day Years [...] Encounters Date Type Department Care Team (Late Contact Info) Description 08/23/2024 3:45 PM EDT Office Visit [facility] [address] [place] [phone] Aarti Thacker MD [address] [place], [place] [phone] 09/03/2024 9:30 AM EDT Telemedicine [facility] [address] [place] [address] Tyesha Lock RN documented as of this encounter Visit Diagnoses Not on filedocumented in this encounter Care Teams Incubator Tender Relationship Specialty Start Date End Date Aarti Thacker MD [address] [place] [address] PCP - General Family Medicine 02/04/20 documented as of this encounter
--- OUTSIDE RECORDS SUMMARY | 2024-07-15 13:46 | XMS_ITS ---
Author Organization [facility] Address [address] [facility] [address] [place] [address] Care Team Providers Care Armoured Car Escort Name Role Phone Aarti Thacekr MD Primary Care Provider [phone] INDUSTRIAL TECHNOLOGY TEACHER Status:Enrolled (Active) Start date:05/07/2022 Enrollment date:05/07/2022 Enrollment reason:Identified using pharmacy data Current support & services provided:Tier 4 (INDUSTRIAL TECHNOLOGY TEACHER) Case Team Name Relationship Phone Tyesha Lock RN Registered Nurse(Responsible Sta ff) Continued Care and Services Coordination
--- OUTSIDE RECORDS SUMMARY | 2024-07-15 13:46 | XMS_ITS | Encounter Summary ---
Author Organization [employer] Address [address] [facility] [address] [place] [address] Care Team Providers Care Cadence Specialists Name Role Phone Aarti Thacker MD Primary Care Provider [phone] Reason for Visit * Reason Onset Date Comments Hospital Follow-up 03/11/2024 Encounter Details Date Type Department Care Team ([facility] st Contact Info) Description 03/11/2024 Telephone [facility] [address] [place], [place] [phone] Aarti Thacker MD [address] [place], [place] [phone] Hospital Follow-up Social History Tobacco Use Types [...] from pt requesting a HDF appt. Hospital: [facility] Date of admission: 03/04/24 Discharge date: 03/09/24 Diagnosed: Pancarditis *Send message to [facility] Clinical Care Coordinators documented in this encounter Plan of Treatment Upcoming Encounters Date Type Department Care Team (Late st Contact Info) Description 08/23/2024 3:45 PM EDT Office Visit [facility] [address] [place] [phone] Aarti Thacker MD [address] [place] [phone] 09/03/2024 9:30 AM EDT Telemedicine [facility] [address] [place] [phone] Tyesha Lock, RN documented as of this [...] documented as of this encounter Care Teams Cadence Specialists Relationship Specialty Start Date End Date Aarti Thacker MD [address] [place] [phone] PCP - General Family Medicine 02/04/20 documented as of this encounter
--- OUTSIDE RECORDS SUMMARY | 2024-07-15 13:46 | XMS_ITS | Clinical Summary ---
Author Organization [employer] Address [address] [place] [address] Care Team Providers Care Manager Benefit Name Role Phone Aarti Thacker MD Primary Care Provider [phone] Allergies Active Allergy Reactions Criticality Noted Date [...] BY MOUTH IN THE MORNING 023 Active sucralfate (Carafate) 1 g tablet TAKE 2 TABLETS BY MOUTH EVERY DAY AT NOON 024 Active glipiZIDE XL (Glucotrol XL) 5 MG 24 hr tabletIndications :Type 2 diabetes mellitus with hyperglycemia, without long-term current use of insulin (CMS/HCC) TAKE 1 TABLET BY MOUTH EVERY [...] FOR NAUSEA AND VOMITING FOR 30 DAYS 024 Active pancrelipase, Adf-Csne-Lcfe, (Creon) 63436-89063 units capsule Take 2 capsules by mouth 2 times daily. Active ibuprofen 800 MG tablet TAKE 1 TABLET BY MOUTH THREE TIMES DAILY 90 tablet 1 024 Active cyanocobalamin (Vitamin B-12) 1000 MCG tablet [...] EVERY DAY AT BEDTIME 180 tablet 1 024 Active Ofev 100 MG capsule TAKE 1 CAPSULE BY MOUTH EVERY TWELVE HOURS 60 capsule 025 Active amLODIPine (Norvasc) 10 MG tabletIndications :Essential (primary) hypertension TAKE 1 TABLET BY MOUTH EVERY MORNING 90 tablet 3 025 Active TRUEplus Lancets 33G miscIndications:T ype 2 diabetes mellitus with hyperglycemia, without long-term current use of insulin [place] USE TO TEST BLOOD SUGAR TWICE DAILY 100 each 11 025 Active FREESTYLE LITE test stripIndications: Type 2 diabetes mellitus with hyperglycemia, without long-term current use of insulin ([facility] USE TO TEST BLOOD SUGAR TWICE DAILY 100 strip 11 025 Active oxyCODONE-acetami nophen (Percocet) 5-325 MG tabletIndications :DISH (diffuse idiopathic skeletal hyperostosis) Take 1 tablet by mouth every 8 (eight) hours if needed for severe pain. 84 tablet 025 Active FREESTYLE LITE test stripIndications: Type 2 diabetes mellitus with hyperglycemia, without long-term current use of insulin ([facility] TEST BLOOD SUGAR TWICE DAILY 100 strip 11 024 2024 Discontinued TRUEplus Lancets 33G miscIndications:T ype 2 diabetes mellitus with hyperglycemia, without long-term current use of insulin ([facility] TEST BLOOD SUGAR TWICE DAILY 100 each 11 024 2024 Discontinued amLODIPine (Norvasc) 10 MG tabletIndications :Essential (primary) hypertension TAKE 1 TABLET BY MOUTH EVERY MORNING 90 tablet 3 024 2024 Discontinued oxyCODONE-acetami nophen (Percocet) 5-325 MG tabletIndications :DISH (diffuse idiopathic skeletal hyperostosis) TAKE 1 TABLET BY MOUTH EVERY 8 HOURS NEEDED FOR SEVERE PAIN 84 tablet 025 2024 Discontinued(R eorder (will not trigger notification to Pharmacy)) Active Problems Problem Noted Date Diagnosed Date Long-term current use of opiate analgesic 2024 Overview (06/21/2024): Dx: Rx: Last [employer]CE [employer]ER agreement: Tier II (visit every 3 months) Additional considerations: Timeline: Persistent cough 05/28/2024 Assessment & Plan (05/28/2024 10:24 AM EST): Patient was reassuring, I advised for her plenty of fluids and rest I will prescribe for her cough syrup ED precautions were reviewed, I advised if she develops fever again night sweats, low appetite intolerance to p.o. 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 and pt understands risks and benefits of medication Feels back pain is worsening, and radiating into hip and down leg Will obtain DEXA (age > 65, post menopause, and jail steroid use) and disposition to rheum/ortho after [...] Encounters Date Type Department Care Team Description 07/15/2024 Orders Only GENERIC EXTERNAL DATA DEPARTMENT Provider, Generic External Data 07/07/2024 Refill [facility] [address], [place] [phone] Aarti Thacker MD DISH (diffuse idiopathic skeletal hyperostosis) 06/25/2024 Refill [facility] MEDICINE [address] [place] [address] Aarti Thacker MD Type 2 diabetes mellitus with hyperglycemia, without long-term current use of insulin ([facility]) 06/23/2024 Refill [facility] [address] [place] [address] Aarti Thacker MD Essential (primary) hypertension 06/17/2024 Telephone [facility] [address] [place] [address] Aarti Thacker MD 06/14/2024 Telephone [facility] [address] [place] [address] Aarti Thacker MD Appointment Request 06/03/2024 Refill [facility] [address] [place] [address] Aarti Thacker MD DISH (diffuse idiopathic skeletal hyperostosis) 06/03/2024 Telephone [facility] [address] [place] [address] Aarti Thacker MD telephone call 05/30/2024 Refill [facility] [address] [place] [address] Aarti Thacker MD 05/28/2024 9:40 AM EST Office Visit [facility] [address] [place] [address] Renae Sandhu MD Persistent cough (Primary Dx) 05/26/2024 Telephone [facility] [address] [place] [phone] Aarti Thacker MD [employer] (Attend wipes, pad, bladder control moderate) 05/26/[address] [address] Aarti Thacker MD [employer] (Foot stool w/handle and cane, quad base alum black) 05/20/2024 [place] [address] Aarti Thacker MD ER Follow-up 05/16/2024 Orders Only GENERIC EXTERNAL DATA DEPARTMENT Provider, Generic External Data 05/13/2024 11:20 AM EST Office Visit [facility] [address] [place] [address] Renae Sandhu MD Influenza A (Primary Dx); Cough in adult patient 05/06/2024 Refill [facility] [address] [place] [address] Aarti Thacker MD 05/06/2024 Refill [facility] [address] [place] [address] Aarti Thacker MD DISH (diffuse idiopathic skeletal hyperostosis) 05/05/[address] [address] Aarti Thacker MD 04/30/[address] [address] Aarti Thacker MD Durable Medical Equipment (L&C Form: Foot Stool/Cane) from Last 3 Months Immunizations Name Administration [...] Sign Reading Time Taken Comments Blood Pressure 136/63 05/28/2024 9:02 AM EST Pulse 68 05/28/2024 9:02 AM EST Temperature 36.6 ??C (97.8 ??F) 05/28/2024 9:02 AM ES T Respiratory Rate 16 05/28/2024 9:02 AM EST Oxygen Saturation 96% 05/28/2024 9:02 AM EST Inhaled Oxygen Concentration - - Weight 67.9 kg (149 lb 9.6 oz) 05/28/2024 9:02 A M EST Height 152.4 cm (5') 05/28/2024 9:02 AM EST Body Mass Index 29.22 05/28/2024 9:02 AM EST Plan of Treatment Upcoming Encounters Date Type Department Care Team (Late st Contact Info) Description 08/23/2024 3:45 PM EDT Office Visit [facility] [address] [place] [phone] Aarti Thacker MD [address] [place] [phone] 09/03/2024 9:30 AM EDT Telemedicine [facility] [address] [place] [address] Tyesha Lock, RASHAUN Health Maintenance Due Date Last Done Comments CT Colonography 1950 FIT DNA/Cologuard 1950 FIT 1950 FOBT 1950 Sigmoidoscopy 1950 Diabetes: Foot Exam 1962 Eye Exam 1962 Alcohol/Substance Use Screening 1964 Hepatitis A Vaccines (1 of 2 - Risk 2-dose series) 1971 RSV Patients and Patients Aged 60 years or older (1 - Risk 60-74 years 1-dose series) 2012 Zoster Vaccines (1 of 2) 04/03/2015 02/06/2015 DTaP/Tdap/Td Vaccines (2 - Td or Tdap) 04/08/2022 04/08/2012, 11/12/2002 COVID-19 Vaccine ( season) 2024 12/17/2023, 12/24/2021, 02/14/2021, Additional history exists Depression Screening 07/02/2024 07/03/2023, 07/03/19 Diabetes: Urine [...] Procedure Name Priority Date/Time Associated Diagnosis Comments LIPASE Routine 07/15/2024 11:37 AM EDT BASIC METABOLIC PANEL Routine 07/15/2024 11:37 AM EDT HEPATIC FUNCTION PANEL Routine 11:37 AM EDT CBC WITH AUTO DIFFERENTIAL Routine 07/15/2024 11:37 AM EDT XR CHEST 2 VIEWS Routine 05/16/2024 4:25 [...] without long-term current use of insulin (CMS/HCC) BI MAMMOGRAM SCREENING TOMOSYNTHESIS BILATERAL Routine 10/16/2023 [...] Relevant to Health Maintenance Results * (ABNORMAL) CBC auto differential (07/15/2024 11:37 AM EDT) Only the most recent of2 resultswithin the time period is included. White Blood Count 4.9 4.8 - 10.8 X10*3/uL [facility] Red Blood Count 3.79(L) 4.20 - 5.50 X10*6/uL [facility] Hemoglobin 12.3 12.0 - 16.0 g/dl [facility] Hematocrit 37.2 37.0 - 47.0 % [facility] Mean Corpuscular Volume 98.2(H) 80.0 - 98.0 fL [facility] Mean Corpuscular Hemoglobin 32.5 27.0 - 33.0 pg [facility] Mean Corpuscular HGB Conc 33.1 31.0 - 35.0 g/dl [facility] Red Cell Distribution Width 13.0 11.0 - 16.0 % [facility] Platelet Count 203 160 - 400 X10*3/uL [facility] Mean Platelet Volume 11.6 9.4 - 12.3 fL [facility] Neutrophils Percent Auto 56.7 45 - 73 % [facility] Imm Gran Pct Auto 0.2 0.0 - 0.4 % [facility] Lymphocytes Percent Auto 36.2 20 - 40 % [facility] Monocytes Percent Auto 5.1 2 - 11 % [facility] Eosinophils Percent Auto 1.0 0 - 4 % [facility] Basophils Percent Auto 0.8 0 - 2 % [facility] NRBC Pct Auto 0.0 0.0 - 0.2 /100WBC [facility] Neutrophils Absolute Auto 2.8 2.0 - 8.3 x10*3/uL [facility] Imm Gran Abs Auto 0.01 0.00 - 0.03 X10*3/uL [facility] Lymphocytes Absolute Auto 1.8 1.2 - 4.9 X10*3/uL [facility] Monocytes Absolute Auto 0.3 0.1 - 1.2 X10*3/uL [facility] Eosinophils Absolute Auto 0.1 0.0 - 0.4 X10*3/uL [facility] Basophils Absolute Auto 0.0 0.0 - 0.2 X10*3/uL [facility] NRBC Abs Auto 0.000 0.0 - 0.012 X10*3/uL [facility] 07/15/2024 11:3 7 AM EDT 07/15/2024 11:37 AM EDT us Generic External Data Provider LAB BLOOD ORDERAB LES Final Result [facility] [address] [place] [address] [phone] * Lipase (07/15/2024 11:37 AM EDT) Pathologist [facility] Lipase 10 8 - 78 U/L [facility] 07/15/2024 11:3 7 AM EDT 07/15/2024 11:37 AM EDT Generic External Data Provider LAB BLOOD ORDERAB LES Final Result Performing Organization Address [facility] Co de Phone Number [facility] [address] [place] [address] [phone] * Hepatic Function Panel (07/15/2024 11:37 AM EDT) [facility] Bilirubin, Total 0.4 0.0 - 1.0 mg/dL [facility] Bilirubin, Direct 0.2 0.0 - 0.5 mg/dL [facility] Aspartate Amino Transferase 25 5 - 31 U/L [facility] Alanine Aminotransferase 17 0 - 31 U/L [facility] Total Protein 7.0 6.5 - 8.0 g/dL [facility] Albumin Level 3.8 3.5 - 5.0 g/dL [facility] Alkaline Phosphatase 75 39 - 117 U/L [facility] 07/15/2024 11:3 7 AM EDT 07/15/2024 11:37 AM EDT [employer] External Data Provider LAB BLOOD ORDERAB LES Final Result Performing Organization Address [facility] Co de Phone Number [facility] [address] [place] [address] [phone] * (ABNORMAL) Basic Metabolic Panel (07/15/2024 11:37 AM EDT) [facility] Sodium 141 135 - 145 mmol/L [facility] Potassium 3.9 3.3 - 5.1 mmol/L [facility] Chloride 105 96 - 108 mmol/L [facility] Carbon Dioxide 33(H) 22 - 29 mmol/L [facility] Anion Gap 7(L) 12 - 20 [facility] Urea Nitrogen (BUN) 14 9 - 16 mg/dL [facility] Creatinine, Serum 0.59 0.5 - 1.4 mg/dL [facility] Estimated Glomerular Filt Rate >60 [facility] Comment:Chronic Kidney Disea se: Estimated GFR < 60 mL/min/1.46w0Jbdicf Kidney Disease: Estimated GFR < 15 mL/min/1.73m2 Glucose 159(H) 60 - 115 mg/dL [facility] Calcium 9.2 8.4 - 10.2 mg/dL [facility] 07/15/2024 11:3 7 AM EDT 07/15/2024 11:37 AM EDT us Generic External Data Provider LAB BLOOD ORDERAB LES Final Result Performing Organization Address City/State/[facility] Co de Phone Number [facility] [address] [place] [address] [phone] * XR Chest 2 Views (05/16/2024 4:25 PM EST) Anatomical Region Laterality Modality Chest Radiographic Mayte ging 05/16/2024 4:25 PM EST Narrative 05/16/2024 4:27 PM EST ? [facility] ?[address] ?[place] [address] ?XRay Report ? Signed ? Patient: Luis Angel Lisbeth,Snehal L ?MR#: ?? [id number] ? : 1950 ?Acct:[id number] ? Age/Sex: 74 / F ?ADM Date: 02/23/25 ? Loc: HO.ED ? Attending Dr: ? Ordering Physician: Kalina Causey CNP ?? Date of Service: 05/16/24 ?? Procedure(s): XR chest 2V ?? Accession Number(s): [id number] ? cc: Kalina Causey CNP; Aarti Thacker [...] by Rd Ladd MD in OV> ? 05/16/246 ? DD/ 1625 ? TD/TT: 05/16/24 1625 ? Digital Media Associate: ? Procedure Note Marcie, Image - 05/16/[address] [address] XRay Report Signed Patient: Snehal Ryan LMR#: [id number] : 1950cct:[id number] Age/Sex: 74 / FADM Date: 05/16/24 Loc: .ED Attending Dr: Ordering Physician: Kalina Causey CNP Date of Service: 05/16/24 Procedure(s): XR chest 2V Accession Number(s): [id number] cc: Kalina Causey CNP; Aarti Thacker CLINICAL HISTORY: sob, cough 2 view chest x-ray Comparison: None Findings: Mild patchy bilateral perihilar opacity. Normal size heart. No acute fracture. IMPRESSION: Mild atypical pneumonia. This document has been electronically signed by: Rd Ladd MD on 05/16/2024 16:25:42 Dictated By: Rd Ladd MD Signed By: <Electronically signed by Rd Ladd MD in OV> 05/16/24 1626 DD/ 162 TD/TT: 05/16/241624 Digital Media Associate: [facility] External Provider IMG XR PROCEDURES Final Result * High Sensitivity Troponin I (05/16/2024 3:55 PM EST) TROPONIN I HIGH SENSITIVITY 7.7 <3.5 - 17.0 ng/L [facility] Comment:The Benitez high sens itivity Troponin-I results should beused in conjunction with other diagnostic information suchas ECG, clinical observations and information, and patientsymptoms to aid in the diagnosis of IA. 05/16/2024 3:55 PM EST 05/16/2024 4:00 PM EST Generic External Data Provider LAB BLOOD ORDERAB LES Final Result Performing Organization Address [facility]/ZIP Co de Phone Number [facility] [address] [place] [phone] * (ABNORMAL) SARS-CoV-2 RNA, Influenza A/B, and RSV RNA, Ql NAAT (05/16/2024 3:55 PM EST) [facility] Influenza A PCR POSITIVE(A) Negative [facility] Influenza B PCR NEGATIVE Negative [facility] Resp Syncy Virus RNA Qual PCR NEGATIVE Negative [facility] SARS COV2 PCR NEGATIVE Negative [facility] Comment:All test results mus t [...] use by authorized laboratories.Testing performed on the Only-apartments GeneXpert utilizingreal-time RT-PCR.All SARS CoV2 and positive influenza A/B results arereported to [facility]. 05/16/2024 3:55 PM EST 05/16/2024 4:00 PM EST Generic External Data Provider LAB MICROBIOLOGY - GENERAL ORDERABLES Final Result Performing Organization Address [facility]/ZIP Co de Phone Number [facility] [address] [place] [phone] * Prothrombin Time-INR (05/16/2024 3:55 PM EST) [facility] Prothrombin Time 11.9 10.9 - 12.4 SEC [facility] INTERNATIONAL NORM RATIO 1.0 0.9 - 1.1 [facility] Comment:INTERNATIONAL NORMAL IZED RATIO (INR) [...] ORDERAB LES Final Result Performing Organization Address [facility] Co de Phone Number [facility] [address] [place] [phone] * B Type Natriuretic Peptide (BNP) (05/16/2024 3:55 PM EST) [facility] B Type Natriuretic Peptide 31 <100 pg/mL [facility] Comment:For those patients w ho are being treated with Natrecor(nesiritide, recombinant BNP), BNP testing should beperformed at least two hours post treatment in order toensure that only endogenous levels of BNP are detected. 05/16/2024 3:55 PM EST 05/16/2024 4:00 PM EST Generic External Data Provider LAB BLOOD ORDERAB LES Final Result Performing Organization Address [facility] Co de Phone Number [facility] [address] [place] [address] [phone] * Magnesium (05/16/2024 3:55 PM EST) [facility] Magnesium 1.8 1.6 - 2.6 mg/dL [facility] 05/16/2024 3:55 PM EST 05/16/2024 4:00 PM EST us Generic External Data Provider LAB BLOOD ORDERAB LES Final Result [facility] [address] [place] [address] [phone] * (ABNORMAL) Comprehensive Metabolic Panel (05/16/2024 3:55 PM EST) Sodium 141 135 - 145 mmol/L [facility] Potassium 3.1(L) 3.3 - 5.1 mmol/L [facility] Chloride 102 96 - 108 mmol/L [facility] Carbon Dioxide 27 22 - 29 mmol/L [facility] Anion Gap 15 12 - 20 [facility] Urea Nitrogen (BUN) 10 9 - 16 mg/dL [facility] Creatinine, Serum 0.60 0.5 - 1.4 mg/dL [facility] Creatinine Clr Calc Pharmacy 74.6 [facility] Comment:Provided height and weight: 152.4 cm,71.2 kg.eGFR (calculated from the MDRD study equation) and eCrCl(calculated from the Cockcroft-Gault equation) are based ondifferent parameters and may not yield comparable results.If eCrCl result is absurd, please check patient'sheight/weight. Estimated Glomerular Filt Rate >60 [facility] Comment:Chronic Kidney Disea se: Estimated GFR < 60 mL/min/1.58r7Cmklul Kidney Disease: Estimated GFR < 15 mL/min/1.73m2 Glucose 123(H) 60 - 115 mg/dL [facility] Calcium 9.2 8.4 - 10.2 mg/dL [facility] Bilirubin, Total 0.4 0.0 - 1.0 mg/dL [facility] Aspartate Amino Transferase 35(H) 5 - 31 U/L [facility] Alanine Aminotransferase 16 0 - 31 U/L [facility] Total Protein 8.1(H) 6.5 - 8.0 g/dL [facility] Albumin Level 3.9 3.5 - 5.0 g/dL [facility] Alkaline Phosphatase 62 39 - 117 U/L [facility] 05/16/2024 3:55 PM EST 05/16/2024 4:00 PM EST us Generic External Data Provider LAB BLOOD ORDERAB LES Final Result Performing Organization Address City/[facility]/ZIP Co de Phone Number [facility] [address] [place] [phone] * POCT Rapid Covid-19 BinaxNOW (05/13/2024 11:18 AM EST) Rapid COVID Ag Negative Swab 05/13/2024 11:1 8 AM EST us Renae Fuller MD POINT OF CARE TEST EN TER/EDIT ORDERABLES Final Result * POCT Rapid Influenza B BENITEZ ID NOW (05/13/2024 11:17 AM EST) [facility] Influenza B Negative Negative, Indeterminate [facility] Swab 05/13/2024 11:1 7 AM EST us Renae Fuller MD POINT OF CARE TEST EN TER/EDIT ORDERABLES Final Result Performing Organization Address [facility]/ZIP Co de Phone Number [facility] [address] [place] [phone] * (ABNORMAL) POCT Rapid Influenza A BENITEZ ID NOW (05/13/2024 11:17 AM EST) [facility] Influenza A Positive( A) Negative, Indeterminate [facility] Swab 05/13/2024 11:1 7 AM EST us Renae Fuller MD POINT OF CARE TEST EN TER/EDIT ORDERABLES Final Result Performing Organization Address City/[facility]/ZIP Co de Phone Number [facility] [address] [place] [address] [phone] * (ABNORMAL) POCT HGB A1C (03/30/2024 1:32 PM EST) Hemoglobin A1C 6.3(A) 4.0 - 6.0 % QC Media Lot # [id number] Lot# Expiration Date [id number] Blood 03/30/2024 1:32 PM EST us Renae Fuller MD POINT OF CARE TEST EN TER/EDIT ORDERABLES Final Result * BI Mammogram Screening Tomosynthesis Bilateral (10/16/2023 9:14 AM EDT) Anatomical Region Laterality Modality Breast Bilateral Mammography 10/16/2023 9:14 AM EDT Narrative 11/05/2023 9:00 PM EDT ? [facility] ? [address] ?[place] [address] ? Mammography Report ? Signed ? Patient: Luis Angel Lisbeth,Snehal L ?MR#: ?? [id number] ? : 1950 ?Acct:[id number] ? Age/Sex: 73 / F ?ADM Date: 07/25/24 ? Loc: HO.MAMMO ? Attending Dr: Aarti Thacker MD ? Ordering Physician: Aarti Thacker ?Results: 1Negative ? Date of Service: 07/25/24 ?Follow Up: 1 Year From Orig ?? inal Mammogram ? Procedure(s): MM tomosynthesis screening BI ?? Accession Number(s): [id number] ? cc: Aarti Thacker ? EXAMINATION: ?? [...] 11/05/232056 ? DD/ 3 ? TD/TT: ? Digital Media Associate: ? Procedure Note Marcie, Pooja - 11/05/2023 [facility] [address] [place] [address] Dr. [place], [place] [address] Mammography Report Signed Patient: Snehal Ryan LMR#: [id number] : 3Acct:[id number] Age/Sex: 73 / FADM Date: 10/16/23 Loc: HO.MAMMO Attending Dr: Aarti Thacker MD Ordering Physician: Mercy Thackerults: 1Negative Date of Service: 10/16/23Follow Up: 1 Year From Orig ina Mammogram Procedure(s): MM tomosynthesis screening BI Accession Number(s): [id number] cc: Aarti Thacker EXAMINATION: MM SCREENING DIGITAL [...] MD in OV> 11/05/232056 DD/ 3 TD/TT: Digital Media Associate: Aarti Thacker MD IMG BI PROCEDURES Final Result * Albumin, Random Urine W/Creatinine (07/03/2023 12:00 PM EDT) Creatinine, Urine 29.87 mg/dL [facility] Microalbumin Urine <5.0 mg/L [facility] Microalbum Creatinine Ratio Ur TNP <30 ug/mg cr [facility] Comment:Unable to calculate albumin/creatinine ratio due to lowmicroalbumin or creatinine result. Urine (Urine, Random) 07/03/2023 12:00 PM EDT 07/03/2023 1:10 PM EDT us Aarti Thacker MD LAB URINE ORDERABLES Final Res ult Performing Organization Address City/[facility]/ZIP Co de Phone Number [facility] [address] [place] [address] [phone] * Hepatitis C Antibody with Reflex to HCV, RNA, Quantitative, Real-Time PCR (07/03/2023 12:00 PM EDT) Hepatitis C Antibody Nonreactive Nonreactive [facility] Comment:Antibodies to HCV no t detected; does not exclude early acuteHCV infection. Blood Venous blood specimen / Unknown 07/03/2023 12:00 PM EDT 07/03/2023 1:16 PM EDT us Aarti Thacker MD LAB BLOOD ORDERABLES Final Res ult Performing Organization Address [facility] Co de Phone Number [facility] [address] [place] [address] [phone] * Lipid Panel, Standard (07/03/2023 12:00 PM EDT) Triglycerides 82 <150 mg/dL [facility] Comment:Desirable Triglyceri de: less than 150 mg/dLBorderline High Triglyceride 150-199 mg/dLHigh Triglyceride: 200-499 mg/dLVery High Triglyceride: greater than or equal to 5OO mg/dL Cholesterol 146 <200 mg/dL [facility] [facility] Comment:Desirable Cholestero l: less than 200 mg/dLBorderline High Cholesterol: 200-239 mg/dLHigh Cholesterol: greater than 239 mg/dL LDL Cholesterol Calculated 80 <100 mg/dL [facility] Comment:Desirable LDL: less than 100 mg/dLNear Optimal/Above Optimal LDL: 110- 129 mg/dLBorderline High LDL: 130-159 mg/dLHigh LDL: 160-189 mg/dLVery High LDL: greater than or equal to 190 mg/dL HDL Cholesterol 50 >40 mg/dL [facility] Comment:Desirable HDL: great er than 40 mg/dL Note: This HDL assay may give artificially low results in patients with liver disease. Blood Venous blood specimen / Unknown 07/03/2023 12:00 PM EDT 07/03/2023 1:16 PM EDT Aarti Thacker MD LAB BLOOD ORDERABLES Final Res ult [facility] [address] [place] [phone] * (ABNORMAL) Colonoscopy (12/22/2020) Colonoscopy Abnormal(A ) Normal Historical Provider HEALTH MAINTENANCE Edited Result - Final from Last 3 Months or Most Recently Relevant to Health Maintenance Insurance [facility] Care Teams Manager Benefit Relationship Specialty Start Date End Date Aarti Thacker MD [address] [place] [address] PCP - General Family Medicine 02/04/20
--- OUTSIDE RECORDS SUMMARY | 2024-07-15 13:46 | XMS_ITS | Encounter Summary ---
Author Organization [employer] Address [address] [facility] 7t [place] [address] Care Team Providers Care Metal Smelter Name Role Phone Aarti Thacker MD Primary Care Provider [phone] Encounter Details Date Type Department Care Team (Late st Contact Info) Description 07/15/2024 Orders Only GENERIC EXTERNAL DATA [...] Description 08/23/2024 3:45 PM EDT Office Visit [facility] MEDICINE [address] [place] [phone] Aarti Thacker MD [address] [place] [address] [phone] 09/03/2024 9:30 AM EDT Telemedicine [facility] MEDICINE [address] [place] [address] [phone] Tyesha Lock RN documented as of this encounter Goals Goal Patient Goal Type Associated Problems Recent Progress Patient-Stated? Author Patient will adhere to medication regimen General No Genoveva Jones, PharmD Hemoglobin A1c < 7.5 Result Component 6.3( 1:32 PM EST) No Genoveva Jones PharmD documented as of this encounter Procedures Procedure Name Priority Date/Time Associated Diagnosis Comments CBC WITH AUTO DIFFERENTIAL Routine 07/15/2024 11:37 AM EDT LIPASE Routine 07/15/2024 11:37 AM EDT HEPATIC FUNCTION PANEL Routine 07/15/2024 11:37 AM EDT BASIC METABOLIC PANEL Routine 07/15/2024 11:37 AM EDT documented in this encounter Results * Lipase (07/15/2024 11:37 AM EDT) Lipase 10 8 - 78 U/L [facility] 07/15/2024 11:3 7 AM EDT 07/15/2024 11:37 AM EDT Generic External Data Provider LAB BLOOD ORDERAB LES Final Result Performing Organization Address [facility] de Phone Number [facility] [address] [place] [phone] * (ABNORMAL) Basic Metabolic Panel (07/15/2024 11:37 AM EDT) [facility] Sodium 141 135 - 145 mmol/L [facility] Potassium 3.9 3.3 - 5.1 mmol/L [facility] Chloride 105 96 - 108 mmol/L [facility] Carbon Dioxide 33(H) 22 - 29 mmol/L [facility] Anion Gap 7(L) 12 - 20 [facility] Urea Nitrogen (BUN) 14 9 - 16 mg/dL [facility] Creatinine, Serum 0.59 0.5 - 1.4 mg/dL [facility] Estimated Glomerular Filt Rate >60 [facility] Comment:Chronic Kidney Disea se: Estimated GFR < 60 mL/min/1.98j1Hxhgms Kidney Disease: Estimated GFR < 15 mL/min/1.73m2 Glucose 159(H) 60 - 115 mg/dL [facility] Calcium 9.2 8.4 - 10.2 mg/dL [facility] 07/15/2024 11:3 7 AM EDT 07/15/2024 11:37 AM EDT Generic External Data Provider LAB BLOOD ORDERAB LES Final Result Performing Organization Address [facility] Co de Phone Number [facility] [address] [place] [phone] Hepatic Function Panel (07/15/2024 11:37 AM EDT) [facility] Bilirubin, Total 0.4 0.0 - 1.0 mg/dL [facility] Bilirubin, Direct 0.2 0.0 - 0.5 mg/dL [facility] Aspartate Amino Transferase 25 5 - 31 U/L [facility] Alanine Aminotransferase 17 0 - 31 U/L [facility] Total Protein 7.0 6.5 - 8.0 g/dL [facility] Albumin Level 3.8 3.5 - 5.0 g/dL [facility] Alkaline Phosphatase 75 39 - 117 U/L [facility] 07/15/2024 11:3 7 AM EDT 07/15/2024 11:37 AM EDT us Generic External Data Provider LAB BLOOD ORDERAB LES Final Result Performing Organization Address City/State/[facility] Co de Phone Number [facility] [address] [place] [phone] * (ABNORMAL) CBC auto differential (07/15/2024 11:37 AM EDT) [facility] White Blood Count 4.9 4.8 - 10.8 X10*3/uL [facility] Red Blood Count 3.79(L) 4.20 - 5.50 X10*6/uL [facility] Hemoglobin 12.3 12.0 - 16.0 g/dl [facility] Hematocrit 37.2 37.0 - 47.0 % [facility] Mean Corpuscular Volume 98.2(H) 80.0 - 98.0 fL [facility] Mean Corpuscular Hemoglobin 32.5 27.0 - 33.0 pg [facility] Mean Corpuscular HGB Conc 33.1 31.0 - 35.0 g/dl [facility] Red Cell Distribution Width 13.0 11.0 - 16.0 % [facility] Platelet Count 203 160 - 400 X10*3/uL [facility] Mean Platelet Volume 11.6 9.4 - 12.3 fL [facility] Neutrophils Percent Auto 56.7 45 - 73 % [facility] Imm Gran Pct Auto 0.2 0.0 - 0.4 % [facility] Lymphocytes Percent Auto 36.2 20 - 40 % [facility] Monocytes Percent Auto 5.1 2 - 11 % [facility] Eosinophils Percent Auto 1.0 0 - 4 % [facility] Basophils Percent Auto 0.8 0 - 2 % [facility] NRBC Pct Auto 0.0 0.0 - 0.2 /100WBC [facility] Neutrophils Absolute Auto 2.8 2.0 - 8.3 x10*3/uL [facility] Imm Gran Abs Auto 0.01 0.00 - 0.03 X10*3/uL [facility] Lymphocytes Absolute Auto 1.8 1.2 - 4.9 X10*3/uL [facility] Monocytes Absolute Auto 0.3 0.1 - 1.2 X10*3/uL [facility] Eosinophils Absolute Auto 0.1 0.0 - 0.4 X10*3/uL [facility] Basophils Absolute Auto 0.0 0.0 - 0.2 X10*3/uL [facility] NRBC Abs Auto 0.000 0.0 - 0.012 X10*3/uL [facility] 07/15/2024 11:3 7 AM EDT 07/15/2024 11:37 AM EDT us Generic External Data Provider LAB BLOOD ORDERAB LES Final Result Performing Organization Address City/State/[facility] Co de Phone Number [facility] [address] [place] [phone] [phone] documented in this encounter Visit Diagnoses Not on filedocumented in this encounter Additional Health Concerns Assessment Noted Time PHQ-9 Depression Total Score: 0 07/03/19 24 10:52 AM EDT documented as of this encounter Care Teams Metal Smelter Relationship Specialty Start Date End Date Aarti Thacker MD [address] [place] [phone] PCP - General Family Medicine 02/04/20 documented as of this encounter
--- OUTSIDE RECORDS SUMMARY | 2024-07-15 13:46 | XMS_ITS | Encounter Summary ---
Author Organization [facility] [facility] Address [address] [facility] 7t [place] [address] Care Team Providers Care Tape Machine Tailer Name Role Phone Aarti Thacker MD Primary Care Provider [phone] Reason for Visit * Reason Comments Med Refill Encounter Details Date Type Department Care Team (Late st Contact Info) Description 06/11/2022 Refill [facility] MEDICINE [address] [place] [address] [phone] Aarti Thacker MD [address] [place] [address] [phone] Other chronic pain Social History Tobacco Use [...] Description 08/23/2024 3:45 PM EDT Office Visit [facility] MEDICINE [address] [place] [address] Aarti Thacker MD [address] [place] [address] 09/03/2024 9:30 AM EDT Telemedicine [facility] MEDICINE [address] [place] [address] Tyesha Lock RN documented as of this encounter Visit Diagnoses Diagnosis Other chronic pain documented in this encounter Care Teams Tape Machine Tailer Relationship Specialty Start Date End Date Aarti Thacker MD [address] [place] [phone] PCP - General Family Medicine 02/04/20 documented as of this encounter
--- OUTSIDE RECORDS SUMMARY | 2024-07-15 13:46 | XMS_ITS | Encounter Summary ---
Author Organization [employer] Address [address] [facility] [address] 7[address] [place] [address] Care Team Providers Care Footwear Machinery Instructor Name Role Phone Aarti Thacker MD Primary Care Provider [phone] Encounter Details Date Type Department Care Team ([facility] st Contact Info) Description 04/05/2024 Telephone [facility] MEDICINE [address] [place], [place] [phone] Aarti Thacker MD [address] [place], [place] [phone] Social History Tobacco Use Types Packs/Day Years [...] Description 08/23/2024 3:45 PM EDT Office Visit [facility] MEDICINE [address] [place] [phone] Aarti Thacker MD [address] [place] [phone] 09/03/2024 9:30 AM EDT Telemedicine [address] [address] Tyesha Lock, RN documented as of this encounter Goals Goal Patient Goal Type Associated Problems Recent Progress Patient-Stated? Author Patient will adhere to medication regimen General No Yossis-Genoveva Keller, PharmD Hemoglobin A1c < 7.5 Result Component 6.3( 1:32 PM EST) No Yossis-Genoveva Keller, PharmD documented as of this encounter Visit Diagnoses Not on filedocumented in this encounter Additional Health Concerns Assessment Noted Time PHQ-9 Depression Total Score: 0 07/03/19 24 10:52 AM EDT documented as of this encounter Care Teams Footwear Machinery Instructor Relationship Specialty Start Date End Date Aarti Thacker MD [address] [place] [phone] PCP - General Family Medicine 02/04/20 documented as of this encounter
--- OUTSIDE RECORDS SUMMARY | 2024-07-15 13:46 | XMS_ITS | Encounter Summary ---
Author Organization [employer] [facility] Address [address] [facility] 7t [place] [address] Care Team Providers Care Weigher And Grader Name Role Phone Aarti Thacker MD Primary Care Provider Encounter Details Date Type Department Care Team (Late st Contact Info) Description 11/19/2022 Abstract [facility] MEDICINE [address] [place] [address] [phone] Aarti Thacker MD [address] [place] [address] [phone] Social History Tobacco Use Types Packs/Day Years [...] Description 08/23/2024 3:45 PM EDT Office Visit [facility] MEDICINE [address] [place] [address] [phone] Aarti Thacker MD [address] [place] [address] [phone] 09/03/2024 9:30 AM EDT Telemedicine [facility] MEDICINE [address] [place] [address] Tyesha Lock, RASHAUN documented as of this encounter Visit Diagnoses Not on filedocumented in this encounter Care Teams Weigher And Grader Relationship Specialty Start Date End Date Aarti Thacker MD [address] [place] [address] PCP - General Family Medicine 02/04/20 documented as of this encounter
--- OUTSIDE RECORDS SUMMARY | 2024-07-15 13:46 | XMS_ITS | Encounter Summary ---
Author Organization [employer] Address [address] [facility] 7t [place] [address] Care Team Providers Care Travel Registered Nurse Icu Name Role Phone Aarti Thacker MD Primary Care Provider [phone] Reason for Visit * Reason Comments Med Refill Encounter Details Date Type Department Care Team (Late st Contact Info) Description 11/14/2023 Refill [facility] MEDICINE [address] [place], [place] [phone] Aarti Thacker MD [address] [place], [place] [phone] Social History Tobacco Use Types Packs/Day Years [...] Description 08/23/2024 3:45 PM EDT Office Visit [facility] MEDICINE [address] [place] [phone] Aarti Thacker MD [address] [place] [phone] 09/03/2024 9:30 AM EDT Telemedicine [facility] MEDICINE [address] [place] [phone] Tyesha Lock RN documented as of this [...] documented as of this encounter Care Teams Travel Registered Nurse Icu Relationship Specialty Start Date End Date Aarti Thacker MD [address] [place] [phone] PCP - General Family Medicine 02/04/20 documented as of this encounter
== END 2024-07-15 11:28 | disposition home or self-care (01) ==
LOC: HO.XRAY 11:27
PROVIDERS: PCP General Practice; Visit Provider Hospitalist
DX: K85.90 Acute pancreatitis without necrosis or infection, unspecified (principal); R10.12 Left upper quadrant pain; J84.9 Interstitial pulmonary disease, unspecified; J41.0 Simple chronic bronchitis
CPT/HCPCS: 36415; 71046; 80048; 80076; 83690; 85025

== ENCOUNTER → 2024-07-15 11:39 | Outpatient (BNV) | payer OTHER, SELFPAY | PROVIDERS: PCP General Practice; Visit Provider Radiology Diagnostic Radiology | DX: J84.9 Interstitial pulmonary disease, unspecified (principal) | CPT/HCPCS: 71046 ==

== ENCOUNTER 2024-07-21 08:45 | Outpatient (AMB) | payer OTHER, SELFPAY ==
--- OUTSIDE RECORDS SUMMARY | 2024-07-21 09:03 | XMS_ITS | Encounter Summary ---
Author Organization [employer] [facility] Address [address] [facility] 7t [place] [address] Care Team Providers Care Veterinarian Poultry Name Role Phone Aarti Thacker MD Primary Care Provider [phone] Reason for Visit * Reason Comments Med Refill Encounter Details Date Type Department Care Team (Late st Contact Info) Description 06/11/2022 Refill [facility] MEDICINE [address] [place] [address] [phone] Aarti Thacker MD [address] [place] [address] [phone] Other chronic pain Social History Tobacco Use [...] Description 08/23/2024 3:45 PM EDT Office Visit [facility] MEDICINE [address] [place] [address] Aarti Thacker MD [address] [place] [address] 09/03/2024 9:30 AM EDT Telemedicine [facility] MEDICINE [address] [place] [address] Tyesha Lock RN documented as of this encounter Visit Diagnoses Diagnosis Other chronic pain documented in this encounter Care Teams Veterinarian Poultry Relationship Specialty Start Date End Date Aarti Thacker MD [address] [place] [phone] PCP - General Family Medicine 02/04/20 documented as of this encounter
--- OUTSIDE RECORDS SUMMARY | 2024-07-21 09:03 | XMS_ITS | Encounter Summary ---
Author Organization [employer] [facility] Address [address] [facility] 7t [place] [address] Care Team Providers Care Commander Police Reserves Name Role Phone Aarti Thacker MD Primary Care Provider [phone] Encounter Details Date Type Department Care Team (Late st Contact Info) Description 11/19/2022 Abstract [facility] MEDICINE [address] [place] [address] [phone] Aarti Thacker MD [address] [place] [address] [phone] Social History Tobacco Use Types Packs/Day Years [...] Description 08/23/2024 3:45 PM EDT Office Visit [facility] MEDICINE [address] [place] [address] [phone] Aarti Thacker MD [address] [place] [address] [phone] 09/03/2024 9:30 AM EDT Telemedicine [facility] MEDICINE [address] [place] [address] Tyesha Lock, RASHAUN documented as of this encounter Visit Diagnoses Not on filedocumented in this encounter Care Teams Commander Police Reserves Relationship Specialty Start Date End Date Aarti Thacker MD [address] [place] [address] PCP - General Family Medicine 02/04/20 documented as of this encounter
--- OUTSIDE RECORDS SUMMARY | 2024-07-21 09:03 | XMS_ITS | Clinical Summary ---
Author Organization [employer] Address [address] [facility] [address] [place] [address] Care Team Providers Care Paper Cleaner Name Role Phone Aarti Thacker MD Primary Care Provider [phone] Allergies Active Allergy Reactions Criticality Noted Date [...] VOMITING FOR 30 DAYS 024 Active pancrelipase, Fkp-Srgw-Ahkv, (Creon) 69707-14759 units capsule Take 2 capsules by mouth [...] hyperglycemia, without long-term current use of insulin ([facility]) USE TO TEST BLOOD SUGAR TWICE DAILY 100 each 11 025 Active FREESTYLE LITE test stripIndications: Type 2 diabetes mellitus with hyperglycemia, without long-term current use of insulin ([facility]) USE TO TEST BLOOD SUGAR TWICE DAILY 100 strip 11 025 Active oxyCODONE-acetami nophen (Percocet) 5-325 MG tabletIndications :DISH (diffuse idiopathic skeletal hyperostosis) Take 1 tablet by mouth every 8 (eight) hours if needed for severe pain. 84 tablet 025 Active FREESTYLE LITE test stripIndications: Type 2 diabetes mellitus with hyperglycemia, without long-term current use of insulin ([facility]) TEST BLOOD SUGAR TWICE DAILY 100 strip 11 024 2024 Discontinued TRUEplus Lancets 33G miscIndications:T ype 2 diabetes mellitus with hyperglycemia, without long-term current use of insulin ([facility]) TEST BLOOD SUGAR TWICE DAILY 100 each [...] 2024 Overview (06/21/2024): Dx: Rx: Last HEAD HOLDER agreement: Tier II (visit every 3 months) [...] On Percocet 5/325 three times daily HEAD HOLDER agreement in place and pt understands risks and benefits of medication Feels back pain is worsening, and radiating into hip and down leg Will obtain DEXA (age > 65, post menopause, and fdc steroid use) and disposition to rheum/ortho after [...] DEPARTMENT Provider, Generic External Data 07/07/2024 Refill [facility] [address] [place], [place] [phone] Aarti Thacker MD DISH (diffuse idiopathic skeletal hyperostosis) 06/25/2024 Refill [facility] MEDICINE [address] [place] [address] Aarti Thacker MD Type 2 diabetes mellitus with hyperglycemia, without long-term current use of insulin ([facility]) 06/23/2024 Refill [facility] [address] [place] [address] Aarti Thacker MD Essential (primary) hypertension 06/17/2024 Telephone [facility] [address] [place] [address] Aarti Thacker MD 06/14/2024 Telephone [facility] [address] [place] [address] Aarti Thacker MD Appointment Request 06/03/2024 Refill [facility] [address] [place] [address] Aarti Thacker MD DISH (diffuse idiopathic skeletal hyperostosis) 06/03/2024 Telephone [facility] [address] [place] [address] Aarti Thacker MD telephone call 05/30/2024 Refill [facility] [address] [place] [address] Aarti Thacker MD 05/28/2024 9:40 AM EST Office Visit [facility] [address] [place] [phone] Renae Sandhu MD Persistent cough (Primary Dx) 05/26/2024 Telephone [facility] [address] [place] [phone] Aarti Thacker MD [employer] (Attend wipes, pad, bladder control moderate) 05/26/[address] [address] Aarti Thacker MD [employer] (Foot stool w/handle and cane, quad base alum black) 05/20/2024 [place] [address] Aarti Thacker MD ER Follow-up 05/16/2024 Orders Only GENERIC EXTERNAL DATA DEPARTMENT Provider, Generic External Data 05/13/2024 11:20 AM EST Office Visit [facility] [address] [place] [address] Renae Sandhu MD Influenza A (Primary Dx); Cough in adult patient 05/06/2024 Refill [facility] [address] [place] [address] Aarti Thacker MD 05/06/2024 Refill [facility] [address] [place] [address] Aarti Thacker MD DISH (diffuse idiopathic skeletal hyperostosis) 05/05/[address] [address] Aarti Thacker MD 04/30/[address] [address] Aarti Thacker MD Durable Medical Equipment (L&C [...] Description 08/23/2024 3:45 PM EDT Office Visit [facility] MED[facility] [address] [place] [address] Aarti Thacker MD [address] [place] [phone] 09/03/2024 9:30 AM EDT Telemedicine [facility] [address] [place] [phone] Tyesha Lock, RASHAUN Health Maintenance Due Date [...] Diagnosis Comments XR CHEST 2 VIEWS Routine 07/15/2024 11:3 9 AM EDT LIPASE Routine 07/15/2024 11:37 AM EDT BASIC [...] Maintenance Results * XR Chest 2 Views (07/15/2024 11:39 AM EDT) Only the most recent of2 resultswithin the time period is included. Anatomical Region Laterality Modality Chest Radiographic Mayte ging 07/15/2024 11:3 9 AM EDT Narrative 07/16/2024 3:07 PM EDT ? [facility] ?[address] ?[place] [address] ?XRay Report ? Signed ? Patient: Luis Angel Lisbeth,Snehal L ?MR#: ?? [id number] ? : 1950 ?Acct:[id number] ? Age/Sex: 74 / F ?ADM Date: 07/15/24 ? Loc: HO.XRAY ? Attending Dr: Van Hill MD ? Ordering Physician: Van Hill MD ?? Date of Service: 07/15/24 ?? Procedure(s): XR chest 2V ?? Accession Number(s): [id number] ? cc: Aarti Thacker; Van Hill MD ? EXAMINATION: ?? XR CHEST ? CLINICAL INFORMATION: ?? J84.9 - Interstitial pulmonary disease, unspecified ? COMPARISON: ?? 05/16/2024, 03/04/2024, CT chest 06/23/2023. ? TECHNIQUE: ?? 2 views of the chest were obtained. ? FINDINGS: ?? Cardiac, hilar, and mediastinal contours are normal. Mild aortic ?? calcification. ?? Mild elevated right hemidiaphragm, unchanged. ? Increased interstitial markings throughout both lungs, most prominent ?? in the right upper lung. This has a similar appearance to the prior ?? exam. Chronic interstitial lung disease suspected. ?? No pneumothorax or effusion. ? No focal osseous or soft tissue abnormality. ? XR/XR chest 2V ?? IMPRESSION: ?? Stable examination. Findings of chronic interstitial lung disease, most ?? confluent in the right upper lung. ?? Stable elevated right hemidiaphragm. ? Electronically signed by: ??Olegario Best MD ??07/16/2024 03:04 PM EDT RP ? Dictated By: ?Olegario Best MD ? Signed By: ?<Electronically signed by Olegario Best MD in OV> ?07/16/24 1504 ? DD/ 1139 ? TD/TT: 07/15/24 1147 ? Photography Professor: ? Procedure Note Pooja Jack - 07/16/[address] [address] XRay Report Signed Patient: Snehal Ryan LMR#: [id number] : 3Acct:[id number] Age/Sex: 74 / FADM Date: 07/15/24 Loc: HO.XRAY Attending Dr: Van Hill MD Ordering Physician: Van Hill MD Date of Service: 07/15/24 Procedure(s): XR chest 2V Accession Number(s): [id number] cc: Aarti Thacker; Van Hill MD EXAMINATION: XR CHEST CLINICAL INFORMATION: J84.9 - Interstitial pulmonary disease, unspecified COMPARISON: 05/16/2024, 03/04/2024, CT chest 06/23/2023. TECHNIQUE: 2 views of the chest were obtained. FINDINGS: Cardiac, hilar, and mediastinal contours are normal. Mild aortic calcification. Mild elevated right hemidiaphragm, unchanged. Increased interstitial markings throughout both lungs, most prominent in the right upper lung. This has a similar appearance to the prior exam. Chronic interstitial lung disease suspected. No pneumothorax or effusion. No focal osseous or soft tissue abnormality. XR/XR chest 2V IMPRESSION: Stable examination. Findings of chronic interstitial lung disease, most confluent in the right upper lung. Stable elevated right hemidiaphragm. Electronically signed by: Olegario Best MD 07/16/2024 03:04 PM EDT RP Dictated By: Olegario Best MD Signed By: <Electronically signed by Olegario Best MD in OV> 07/16/24 1504 DD/ 1139 TD/TT: 07/15/24 1147 Photography Professor: [facility] External Provider IMG XR PROCEDURES Edited Result - Final * (ABNORMAL) CBC auto differential (07/15/2024 11:37 AM EDT) Only the most recent of2 resultswithin the time period is included. White Blood Count 4.9 4.8 - 10.8 X10*3/uL [facility] Red Blood Count 3.79(L) 4.20 - 5.50 X10*6/uL [facility] Hemoglobin 12.3 12.0 - 16.0 g/dl [facility] Hematocrit 37.2 37.0 - 47.0 % [facility] Mean Corpuscular Volume 98.2(H) 80.0 - 98.0 fL [facility] Mean Corpuscular Hemoglobin 32.5 27.0 - 33.0 pg [facility] Mean Corpuscular HGB Conc 33.1 31.0 - 35.0 g/dl [facility] Red Cell Distribution Width 13.0 11.0 - 16.0 % [facility] Platelet Count 203 160 - 400 X10*3/uL [facility] Mean Platelet Volume 11.6 9.4 - 12.3 fL [facility] Neutrophils Percent Auto 56.7 45 - 73 % [facility] Imm Gran Pct Auto 0.2 0.0 - 0.4 % [facility] Lymphocytes Percent Auto 36.2 20 - 40 % [facility] Monocytes Percent Auto 5.1 2 - 11 % [facility] Eosinophils Percent Auto 1.0 0 - 4 % [facility] Basophils Percent Auto 0.8 0 - 2 % [facility] NRBC Pct Auto 0.0 0.0 - 0.2 /100WBC [facility] Neutrophils Absolute Auto 2.8 2.0 - 8.3 x10*3/uL [facility] Imm Gran Abs Auto 0.01 0.00 - 0.03 X10*3/uL [facility] Lymphocytes Absolute Auto 1.8 1.2 - 4.9 X10*3/uL [facility] Monocytes Absolute Auto 0.3 0.1 - 1.2 X10*3/uL [facility] Eosinophils Absolute Auto 0.1 0.0 - 0.4 X10*3/uL [facility] Basophils Absolute Auto 0.0 0.0 - 0.2 X10*3/uL [facility] NRBC Abs Auto 0.000 0.0 - 0.012 X10*3/uL [facility] 07/15/2024 11:3 7 AM EDT 07/15/2024 11:37 AM EDT us Generic External Data Provider LAB BLOOD ORDERAB LES Final Result [facility] [address] [place] [address] [phone] * Lipase (07/15/2024 11:37 AM EDT) Pathologist [facility] Lipase 10 8 - 78 U/L [facility] 07/15/2024 11:3 7 AM EDT 07/15/2024 11:37 AM EDT Generic External Data Provider LAB BLOOD ORDERAB LES Final Result Performing Organization Address City/[facility] Co de Phone Number [facility] [address] [place] [address] [phone] * Hepatic Function Panel (07/15/2024 11:37 AM EDT) [facility] Bilirubin, Total 0.4 0.0 - 1.0 mg/dL [facility] Bilirubin, Direct 0.2 0.0 - 0.5 mg/dL [facility] Aspartate Amino Transferase 25 5 - 31 U/L [facility] Alanine Aminotransferase 17 0 - 31 U/L [facility] Total Protein 7.0 6.5 - 8.0 g/dL [facility] Albumin Level 3.8 3.5 - 5.0 g/dL [facility] Alkaline Phosphatase 75 39 - 117 U/L [facility] 07/15/2024 11:3 7 AM EDT 07/15/2024 11:37 AM EDT Generic External Data Provider LAB BLOOD ORDERAB LES Final Result Performing Organization Address City/[facility]/ZIP Co de Phone Number [facility] [address] [place] [address] [phone] * (ABNORMAL) Basic Metabolic Panel (07/15/2024 11:37 AM EDT) [facility] Sodium 141 135 - 145 mmol/L [facility] Potassium 3.9 3.3 - 5.1 mmol/L [facility] Chloride 105 96 - 108 mmol/L [facility] Carbon Dioxide 33(H) 22 - 29 mmol/L [facility] Anion Gap 7(L) 12 - 20 [facility] Urea Nitrogen (BUN) 14 9 - 16 mg/dL [facility] Creatinine, Serum 0.59 0.5 - 1.4 mg/dL [facility] Estimated Glomerular Filt Rate >60 [facility] Comment:Chronic Kidney Disea se: Estimated GFR < 60 mL/min/1.54s1Glfbmz Kidney Disease: Estimated GFR < 15 mL/min/1.73m2 Glucose 159(H) 60 - 115 mg/dL [facility] Calcium 9.2 8.4 - 10.2 mg/dL [facility] 07/15/2024 11:3 7 AM EDT 07/15/2024 11:37 AM EDT Generic External Data Provider LAB BLOOD ORDERAB LES Final Result Performing Organization Address [facility] Co de Phone Number [facility] [address] [place] [phone] * High Sensitivity Troponin I (05/16/2024 3:55 PM EST) TROPONIN I HIGH SENSITIVITY 7.7 <3.5 - 17.0 ng/L [facility] Comment:The Benitez high sens itivity Troponin-I results should beused in conjunction with other diagnostic information suchas ECG, clinical observations and information, and patientsymptoms to aid in the diagnosis of SD. 05/16/2024 3:55 PM EST 05/16/2024 4:00 PM EST us Generic External Data Provider LAB BLOOD ORDERAB LES Final Result Performing Organization Address [facility] Co de Phone Number [facility] [address] [place] [address] [phone] * (ABNORMAL) SARS-CoV-2 RNA, Influenza A/B, and RSV RNA, Ql NAAT (05/16/2024 3:55 PM EST) Influenza A PCR POSITIVE(A) Negative [facility] Influenza B PCR NEGATIVE Negative [facility] Resp Syncy Virus RNA Qual PCR NEGATIVE Negative [facility] SARS COV2 PCR NEGATIVE Negative [facility] Comment:All test results mus t be [...] use by authorized laboratories.Testing performed on the [employer] GeneXpert utilizingreal-time RT-PCR.All SARS CoV2 and positive influenza A/B results arereported to [facility]. 05/16/2024 3:55 PM EST 05/16/2024 4:00 PM EST us Generic External Data Provider LAB MICROBIOLOGY - GENERAL ORDERABLES Final Result Performing Organization Address City/State/[facility] Co de Phone Number [facility] [address] [place] [phone] * Prothrombin Time-INR (05/16/2024 3:55 PM EST) Prothrombin Time 11.9 10.9 - 12.4 SEC [facility] INTERNATIONAL NORM RATIO 1.0 0.9 - 1.1 [facility] Comment:INTERNATIONAL NORMAL IZED RATIO (INR) [...] ORDERAB LES Final Result Performing Organization Address [facility] de Phone Number [facility] [address] [place] [phone] * B Type Natriuretic Peptide (BNP) (05/16/2024 3:55 PM EST) [facility] B Type Natriuretic Peptide 31 <100 pg/mL [facility] Comment:For those patients w ho are being treated with Natrecor(nesiritide, recombinant BNP), BNP testing should beperformed at least two hours post treatment in order toensure that only endogenous levels of BNP are detected. 05/16/2024 3:55 PM EST 05/16/2024 4:00 PM EST Generic External Data Provider LAB BLOOD ORDERAB LES Final Result Performing Organization Address [facility] de Phone Number [facility] [address] [place] [phone] * Magnesium (05/16/2024 3:55 PM EST) [facility] Magnesium 1.8 1.6 - 2.6 mg/dL [facility] 05/16/2024 3:55 PM EST 05/16/2024 4:00 PM EST Generic External Data Provider LAB BLOOD ORDERAB LES Final Result Performing Organization Address [facility] de Phone Number [facility] [address] [place] [phone] * (ABNORMAL) Comprehensive Metabolic Panel (05/16/2024 3:55 PM EST) [facility] Sodium 141 135 - 145 mmol/L [facility] Potassium 3.1(L) 3.3 - 5.1 mmol/L [facility] Chloride 102 96 - 108 mmol/L [facility] Carbon Dioxide 27 22 - 29 mmol/L [facility] Anion Gap 15 12 - 20 [facility] Urea Nitrogen (BUN) 10 9 - 16 mg/dL [facility] Creatinine, Serum 0.60 0.5 - 1.4 mg/dL [facility] Creatinine Clr Calc Pharmacy 74.6 [facility] Comment:Provided height and weight: 152.4 cm,71.2 kg.eGFR (calculated from the MDRD study equation) and eCrCl(calculated from the Cockcroft-Gault equation) are based ondifferent parameters and may not yield comparable results.If eCrCl result is absurd, please check patient'sheight/weight. Estimated Glomerular Filt Rate >60 [facility] Comment:Chronic Kidney Disea se: Estimated GFR < 60 mL/min/1.24t1Ikhyum Kidney Disease: Estimated GFR < 15 mL/min/1.73m2 Glucose 123(H) 60 - 115 mg/dL [facility] Calcium 9.2 8.4 - 10.2 mg/dL [facility] Bilirubin, Total 0.4 0.0 - 1.0 mg/dL [facility] Aspartate Amino Transferase 35(H) 5 - 31 U/L [facility] Alanine Aminotransferase 16 0 - 31 U/L [facility] Total Protein 8.1(H) 6.5 - 8.0 g/dL [facility] Albumin Level 3.9 3.5 - 5.0 g/dL [facility] Alkaline Phosphatase 62 39 - 117 U/L [facility] 05/16/2024 3:55 PM EST 05/16/2024 4:00 PM EST us Generic External Data Provider LAB BLOOD ORDERAB LES Final Result [facility] [address] [place] [phone] * POCT Rapid Covid-19 BinaxNOW (05/13/2024 11:18 AM EST) Rapid COVID Ag Negative Swab 05/13/2024 11:1 8 AM EST Renae Fuller MD POINT OF CARE TEST EN TER/EDIT ORDERABLES Final Result * POCT Rapid Influenza B BENITEZ ID NOW (05/13/2024 11:17 AM EST) Influenza B Negative Negative, Indeterminate [facility] Swab 05/13/2024 11:1 7 AM EST Renae Fuller MD POINT OF CARE TEST EN TER/EDIT ORDERABLES Final Result Performing Organization Address [facility]/ZIP Co de Phone Number [facility] [address] [place] [phone] * (ABNORMAL) POCT Rapid Influenza A BENITEZ ID NOW (05/13/2024 11:17 AM EST) Influenza A Positive( A) Negative, Indeterminate [facility] Swab 05/13/2024 11:1 7 AM EST Renae Fuller MD POINT OF CARE TEST EN TER/EDIT ORDERABLES Final Result Performing Organization Address [facility] Co de Phone Number [facility] [address] [place] [phone] * (ABNORMAL) POCT HGB A1C (03/30/2024 1:32 PM EST) Hemoglobin A1C 6.3(A) 4.0 - 6.0 % QC Media Lot # [id number] Lot# Expiration Date [id number] Blood 03/30/2024 1:32 PM EST Renae Fuller MD POINT OF CARE TEST EN TER/EDIT ORDERABLES Final Result * BI Mammogram Screening Tomosynthesis Bilateral (10/16/2023 9:14 AM EDT) Anatomical Region Laterality Modality Breast Bilateral Mammography 10/16/2023 9:14 AM EDT Narrative 11/05/2023 9:00 PM EDT ? [facility] ? [address] ?[place] [address] ? Mammography Report ? Signed ? Patient: Luis Angel Lisbeth,Snehal L ?MR#: ?? [id number] ? : 1950 ?Acct:[id number] ? Age/Sex: 73 / F ?ADM Date: 10/16/23 ? Loc: HO.MAMMO ? Attending Dr: Aarti Thacker MD ? Ordering Physician: Aarti Thacker ?Results: 1Negative ? Date of Service: 10/16/23 ?Follow Up: 1 Year From Orig ?? inal Mammogram ? Procedure(s): MM tomosynthesis screening BI ?? Accession Number(s): [id number] ? cc: Aarti Thacker ? EXAMINATION: ?? [...] 11/05/232056 ? DD/ 0914 ? TD/TT: ? Photography Professor: ? Procedure Note Marcie, Image - [facility]05[facility] [address] [place] [address] Mammography Report Signed Patient: Snehal Ryan LMR#: [id number] : 3Acct:[id number] Age/Sex: 73 / FADM Date: 10/16/23 Loc: HO.MAMMO Attending Dr: Aarti Thacker MD Ordering Physician: Mercy Thackerults: 1Negative Date of Service: 10/16/23Follow Up: 1 Year From Orig inal Mammogram Procedure(s): MM tomosynthesis screening BI Accession Number(s): [id number] cc: Aarti Thacker EXAMINATION: MM SCREENING DIGITAL [...] MD in OV> 11/05/232056 DD/ 3 TD/TT: Photography Professor: Aarti Thacker MD IMG BI PROCEDURES Final Result * Albumin, Random Urine W/Creatinine (07/03/2023 12:00 PM EDT) Creatinine, Urine 29.87 mg/dL [facility] Microalbumin Urine <5.0 mg/L [facility] Microalbum Creatinine Ratio Ur TNP <30 ug/mg cr [facility] Comment:Unable to calculate albumin/creatinine ratio due to lowmicroalbumin or creatinine result. Urine (Urine, Random) 07/03/2023 12:00 PM EDT 07/03/2023 1:10 PM EDT Aarti Thacker MD LAB URINE ORDERABLES Final Res ult [facility] [address] [place] [phone] * Hepatitis C Antibody with Reflex to HCV, RNA, Quantitative, Real-Time PCR (07/03/2023 12:00 PM EDT) Hepatitis C Antibody Nonreactive Nonreactive [facility] Comment:Antibodies to HCV no t detected; does not exclude early acuteHCV infection. Blood Venous blood specimen / Unknown 07/03/2023 12:00 PM EDT 07/03/2023 1:16 PM EDT Aarti Thacker MD LAB BLOOD ORDERABLES Final Res ult Performing Organization Address [facility] Co de Phone Number [facility] [address] [place] [phone] * Lipid Panel, Standard (07/03/2023 12:00 PM EDT) Triglycerides 82 <150 mg/dL [facility] Comment:Desirable Triglyceri de: less than 150 mg/dLBorderline High Triglyceride 150-199 mg/dLHigh Triglyceride: 200-499 mg/dLVery High Triglyceride: greater than or equal to 5OO mg/dL Cholesterol 146 <200 mg/dL [facility] Comment:Desirable Cholestero l: less than 200 mg/dLBorderline High Cholesterol: 200-239 mg/dLHigh Cholesterol: greater than 239 mg/dL LDL Cholesterol Calculated 80 <100 mg/dL [facility] Comment:Desirable LDL: less than 100 mg/dLNear Optimal/Above Optimal LDL: 110- 129 mg/dLBorderline High LDL: 130-159 mg/dLHigh LDL: 160-189 mg/dLVery High LDL: greater than or equal to 190 mg/dL HDL Cholesterol 50 >40 mg/dL [facility] Comment:Desirable HDL: great er than 40 mg/dL Note: This HDL assay may give artificially low results in patients with liver disease. Blood Venous blood specimen / Unknown 07/03/2023 12:00 PM EDT 07/03/2023 1:16 PM EDT Aarti Thacker MD LAB BLOOD ORDERABLES Final Res ult Performing Organization Address [facility]/ZIP Co de Phone Number [facility] [address] [place] [address] [phone] * (ABNORMAL) Hm Colonoscopy (12/22/2020) Colonoscopy Abnormal(A ) Normal Historical Provider HEALTH MAINTENANCE Edited Result - Final from Last 3 Months or Most Recently Relevant to Health Maintenance Insurance [facility] [employer] (HMO D-SNP) [place]KS [id number] Care Teams Paper Cleaner Relationship Specialty Start Date End Date Aarti Thacker MD [address] [place] [address] [place] [address] PCP - General Family Medicine 02/04/20
--- OUTSIDE RECORDS SUMMARY | 2024-07-21 09:03 | XMS_ITS ---
Author Organization [employer] [facility] Address [address] [facility] [address] [place] [address] Care Team Providers Care Service Learning Coordinator Name Role Phone Aarti Thacker MD Primary Care Provider [phone] TOOL AND DIE INSPECTOR Status:Enrolled (Active) Start date:05/07/2022 Enrollment date:05/07/2022 Enrollment reason:Identified using pharmacy data Current support & services provided:Tier 4 (TOOL AND DIE INSPECTOR) Case Team Name Relationship Phone Tyesha Lock RN Registered Nurse(Responsible Sta ff) Continued Care and Services Coordination
--- OUTSIDE RECORDS SUMMARY | 2024-07-21 09:03 | XMS_ITS | Encounter Summary ---
Author Organization [employer] [facility] Address [address] [facility] 7t [place] [address] Care Team Providers Care Surgical Nurse Name Role Phone Aarti Thacker MD Primary Care Provider [phone] Encounter Details Date Type Department Care Team (Latest Contact Info) Description 08/03/2018 Abstract [facility] CONVERSIONS Dental, Provider, DDS Social History [...] Description 08/23/2024 3:45 PM EDT Office Visit [facility] MEDICINE [address] [place] [phone] Aarti Thacker MD [address] [place] [phone] 09/03/2024 9:30 AM EDT Telemedicine [facility] MEDICINE [address] [place] [phone] Tyesha Lock, RASHAUN documented as of this encounter Visit Diagnoses Not on filedocumented in this encounter Care Teams Surgical Nurse Relationship Specialty Start Date End Date Aarti Thacker MD [address] [place] [address] [phone] PCP - General Family Medicine 02/04/20 documented as of this encounter
--- OUTSIDE RECORDS SUMMARY | 2024-07-21 09:03 | XMS_ITS | Encounter Summary ---
Author Organization [facility] Address [address] [facility] 7t [place] [address] Care Team Providers Care Product Manager Medical Device Name Role Phone Aarti Thacker MD Primary Care Provider [phone] Reason for Visit * Reason Comments Med Refill Encounter Details Date Type Department Care Team (Late Contact Info) Description 10/20/2022 Refill [facility] MEDICINE [address] [place] [phone] Cristina Mcginnis FNP [address] [place], [place] [phone] Social History Tobacco Use Types Packs/Day Years [...] Description 08/23/2024 3:45 PM EDT Office Visit [facility] MEDICINE [address] [place] [phone] Aarti Thacker MD [address] [place], [place] [phone] 09/03/2024 9:30 AM EDT Telemedicine [facility] MEDICINE [address] [place] [address] Tyesha Lock RN documented as of this encounter Visit Diagnoses Not on filedocumented in this encounter Care Teams Product Manager Medical Device Relationship Specialty Start Date End Date Aarti Thacker MD [address] [place] [address] PCP - General Family Medicine 02/04/20 documented as of this encounter
--- OUTSIDE RECORDS SUMMARY | 2024-07-21 09:03 | XMS_ITS | Encounter Summary ---
Author Organization [employer] Address [address] [facility] 7t [place] [address] Care Team Providers Care Marine Mechanic Name Role Phone Aarti Thacker MD Primary Care Provider [phone] Reason for Visit * Reason Comments Med Refill Encounter Details Date Type Department Care Team (Late st Contact Info) Description 11/14/2023 Refill [facility] MEDICINE [address] [place], [place] [phone] Aarti Thacker MD [address] [place], [place] [phone] Social History Tobacco Use Types Packs/Day Years [...] Description 08/23/2024 3:45 PM EDT Office Visit [facility] MEDICINE [address] [place] [phone] Aarti Thacker MD [address] [place] [phone] 09/03/2024 9:30 AM EDT Telemedicine [facility] MEDICINE [address] [place] [phone] Tyesha Lock RN documented as of this [...] documented as of this encounter Care Teams Marine Mechanic Relationship Specialty Start Date End Date Aarti Thacker MD [address] [place] [phone] PCP - General Family Medicine 02/04/20 documented as of this encounter
--- OUTSIDE RECORDS SUMMARY | 2024-07-21 09:03 | XMS_ITS | Encounter Summary ---
Author Organization [employer] Address [address] [address] [facility] [address] 7[address] [place] [address] Care Team Providers Care Adult Secondary Education Instructor Name Role Phone Aarti Thacker MD Primary Care Provider [phone] Encounter Details Date Type Department Care Team ([facility] st Contact Info) Description 04/05/2024 Telephone [facility] MEDICINE [address] [place], [place] [phone] Aarti Thacker MD [address] [place], [place] [phone] Social History Tobacco Use Types Packs/Day Years [...] 3:45 PM EDT Office Visit [facility] MEDICINE [address] [place] [phone] Aarti Thacker MD [address] [place] [address] 09/03/2024 9:30 AM EDT Telemedicine [address] [address] Tyesha Lock, RN documented as of this [...] documented as of this encounter Care Teams Adult Secondary Education Instructor Relationship Specialty Start Date End Date Aarti Thacker MD [address] [place] [phone] PCP - General Family Medicine 02/04/20 documented as of this encounter
--- OUTSIDE RECORDS SUMMARY | 2024-07-21 09:03 | XMS_ITS | Encounter Summary ---
Author Organization [employer] Address [address] [facility] 7t [place] [address] Care Team Providers Care Garnett Machine Operator Helper Name Role Phone Aarti Thacker MD Primary Care Provider [phone] Reason for Visit * Reason Onset Date Comments Hospital Follow-up 03/11/2024 Encounter Details Date Type Department Care Team ([facility] st Contact Info) Description 03/11/2024 Telephone [facility] MEDICINE [address] [place], [place] [phone] Aarti Thacker MD [address] [place], [place] [phone] Hospital Follow-up Social History Tobacco Use Types [...] from pt requesting a HDF appt. Hospital: [facility] Date of admission: 03/04/24 Discharge date: 03/09/24 Diagnosed: Pancarditis *Send message to [facility] Clinical Care Coordinators documented in this encounter Plan of Treatment Upcoming Encounters Date Type Department Care Team (Late st Contact Info) Description 08/23/2024 3:45 PM EDT Office Visit [facility] MEDICINE [address] [place] [phone] Aarti Thacker MD [address] [place] [phone] 09/03/2024 9:30 AM EDT Telemedicine [facility] MEDICINE [address] [place] [phone] Tyesha Lock, RN documented as of this [...] documented as of this encounter Care Teams Garnett Machine Operator Helper Relationship Specialty Start Date End Date Aarti Thacker MD [address] [place] [phone] PCP - General Family Medicine 02/04/20 documented as of this encounter
[2024-07-21 09:05] VITALS: BP 140/72; PULSE 68; O2SAT 96; BMI 29.7
--- NOTE | 2024-07-21 09:05 | A.OFFVIS_ITS ---
Vital Signs 07/21/24 09:05 Height 5 ft Weight 152 lb 1.903 oz BMI 29.7 BP 140/72 H Blood Pressure Location Rt brachial Position Sitting Pulse 68 Pulse Source Pulse Oximeter Pulse Oximetry (%) 96 Oxygen Delivery Method Room Air Intake Visit Reasons: Pulmonary Hypertension/PFT Follow Up Allergies morphine [MORPHINE] Allergy (Mild, Verified 05/16/24 15:32) NAUSEA, VOMITING, DIZZINESS, HOT FLASHES HPI Comments Details: The patient is a 74-year-old woman with known pulmonary hypertension. She also has obstructive airway disease and has been on short-acting beta agonist. She has been having increasing shortness of breath. And she has been using her rescue inhaler with partial response. At this point will start her on a maintenance inhaler. In addition to that in view of her pulmonary hypertension will go ahead and request an overnight oximetry to assess her for nocturnal hypoxia. She does have any evidence of any nocturnal hypoxia will be imperative to start her on oxygen supplementation to treat her underlying pulmonary hypertension. 04/29/2022 the patient is here for a pulmonary follow-up visit. Recently she went to the ER because of worsening respiratory symptoms and cough. There she had a chest x-ray without any significant changes show she does have the reticulonodular opacities her interstitial lung disease. Since we last spoke the patient was supposed to undergo blood work and she has not done as of yet. In addition to that the patient did not feel healthy enough to have a sleep stud y. Therefore she did not have that either. The patient is frustrated that she is no better. Although she also did not follow through with the recommendations. She was provided with prednisone in the hospital and did help her symptoms. She has completed the course at this time. She also finished a course of antibiotics. Again, she has significant interstitial lung disease. Her total lung capacity is decreased consistent with chronic restrictive lung disease from the interstitial lung disease. The etiologies still is unclear. Patient understands the blood work to help try to clear up the etiology of the fibrosis. Indeed, if this fibrosis is progressive then anti fibrotic agents will be warranted. Since the patient is developing significant cough and shortness of breath we did taken for brief walking oximetry in the patient was able to maintain a pulse ox in the low 90s. Therefore the patient does not qualify for oxygen. based on her ongoing symptoms will go ahead and put her on a small dose of prednisone to see if we can stabilize her condition as we move further. The patient understands the importance of the blood work that she needs to get prior to the next visit. In addition to that we briefly spoke about lung biopsies. The patient is reluctant to undergo any invasive or semi- invasive interventions at this time. 05/20/2022 the patient is here for a pulmonary follow-up visit. Overall the patient has been feeling a little better. She is tolerating the prednisone. We did review all her blood work. No evidence of any connective tissue conditions or hyper sensitivity reaction to we can identify. Therefore, no clear etiology for her interstitial lung disease. We talked about diagnostic interventions which is biopsies. However, explained to the patient that this may not necessarily change the overall treatment plan. Therefore will continue to assess the response to prednisone. I am hopeful that she response. we can better assess this will be repeating her imaging studies. In the meantime she continues to cough. The benzo night work great for her cough. Although the not covered. We did look for different alternatives including going with good Rx to see if she can get him on a lower walker. These probably be the best option. Also, we did talk about the if there is any evidence of any progression of her pulmonary fibrosis to suggest progressive idiopathic pulmonary fibrosis then we can consider antifibrotic therapies at that time. 06/18/2022 the patient is here for a pulmonary follow-up visit. The patient overall is feeling better. She is is bonding well to the prednisone. Only taking 10 mg. Her prescription for the Benzonate is with still that [employer] and she did take a very low walker which she is happy about. Her sugars are reasonable staying in the normal range. We did talk about if there is any worsening of the interstitial lung disease suggesting progressive pulmonary fibrosis then we will start Ofev. While give her some reading material in order for her to read up on it. I do believe that she will benefit from the medication if there is any evidence of progression of disease. She does continue to have issues with her sleep. She does wake up tired with headaches. Will perform an overnight oximetry to make sure that she does not need oxygen supplementation. In the meantime she continues with respiratory therapy with good effect. She does continue the Bentson eyes again with very good response improving her cough overall. 07/29/2022 the patient is here for pulmonary follow-up visit. She is feeling a little better on the prednisone and also continues on the Bentson eyes with good effect. Her cough is overall better. She still has some dyspnea on exertion with activity which is mild severity. We did review her last CT scan of the chest that she had in June 2022 demonstrating interval worsening of the interstitial lung disease as well as evidence of scarring and some evidence of ground-glass opacities. She therefore, based on the worsening disease I am concerned that she continued to have progressive symptoms. At the basilar progressive interstitial lung disease with pulmonary fibrosis I do believe that she will be a good candidate for Ofev. Will go ahead and request a prior approval from her insurance company. She is in the meantime she continues on the prednisone. She is concerned about the side effects of prednisone but I do believe that she needs additional anti-inflammatory effect due to her ongoing symptoms and findings. Therefore, will go ahead and start him on CellCept. We did talk about potential biopsy. The patient is going to think about it. Will try these medication changes at this time. However, if the patient is no better or there is any worsening of disease then will have to further consider a biopsy. If the patient does need a biopsy and wedge biopsy will be passed 10/29/2022 the patient is here for pulmonary follow-up visit. She continues to have cough and also shortness of breath with activity. I did had sent her prescription for mycophenolate when she was last here. She did pick up driver the medication but she has not taking it as of yet. He has been now about 3 months. Explained to her that it appears that she has interval worsening of her interstitial lung disease. She also has diabetes was difficult to increase her prednisone. Mycophenolate will be a very good option in order to decrease the inflammation and hopefully decrease the risk of further scarring. The patient also reviewed the CT scan with me. I did show her the CT scan she had back in 2021 and a CAT scan of 2022 demonstrating worsening of disease. The patient will start the mycophenolate at this time. I did write it down for her so she can start with 1 daily and then increase it to twice a day. In November she is going to come in and get x-rays and also blood work and will follow-up with her at that time. Will plan to repeat her PFTs sometime in February. Also we talked about Ofev. This is a medication we have sent to the pharmacy. We did send a script but not clear what happened as far as the process. I did reach out to our staff in the office to try to get an update of what occurred with the medication Request. Again I reviewed the blood work that we did with her. No evidence of any connective tissue disease. No evidence of any hypersensitivity pneumonitis. Her scarring is primarily at the base suggesting the possibility of UIP versus I fibrotic NSIP. Will see her response to therapy. If the patient does not have any significant response to the therapy then will consider surgical biopsy. 12/20/2022 the patient is here for a pulmonary follow-up visit. The patient continues to be about the same. She does have the frequent constant cough. It is nonproductive in nature. Responds well to the current medications. She also has shortness of breath with activity. Does not feel like she is getting any worse from the last visit. The patient did have a repeat chest x-ray demonstrating some interval worsening though. Therefore she understands that this interstitial lung disease may indeed be progressive which is a concern. She has been on mycophenolate although she is only taking 1 tablet daily with which she was supposed to be taking more. Therefore I did write down the instructions on how she is to take the mycophenolate. She is going to titrate up to hopefully 2 tablets b.i.d.. Blood work was reassuring without any evidence of any organ toxicity. When she reaches she is the 2 g a day does she will go ahead and have additional blood work. When she is on 2 g the patient will also cut down on the prednisone. We did talk about Ofev has good option for her specially if indeed this appears to be a per aggressive interstitial fibrosis. Therefore, will see how she responds to this current increase medications she will have a repeat chest x-ray and if there is any worsening of symptoms and or imaging studies then will go ahead and start Ofev. 03/18/2023 the patient is here for a pulmonary follow-up visit. Overall the patient has been doing well. Her cough is overall better. She still has dyspnea on exertion mild in severity. She continues to take the prednisone 10 mg daily and also was able to increase the mycophenolate now taking 1000 mg in the morning and 500 mg at nighttime. She did have a chest x-ray which I personally reviewed. I will see any significant changes although which still waiting for the final read. The patient has not started the also bibasilar yet. I am unsure if it was not approved by the insurance. At this point will do is we will go ahead and maximize her mycophenolate to 1000 mg twice a day and also she can decrease the prednisone some because of her history of diabetes. Will plan to repeat a CT scan in June closer to her last CT scan to see if there is any progression of the interstitial lung disease. If there is any progression of the eye LD then starting her on Ofev will be very important. If the patient has any worsening symptoms prior to the next visit she will call the office for an earlier assessment. Otherwise will follow-up then. 07/21/2023 the patient is here for a pulmonary follow-up visit. She has been tolerating mycophenolate well. She is now up to 2 g a day. She is off the prednisone altogether which is reassuring. She continues shortness of breath with activities about the same. She is also complaining of left-sided flank discomfort. The etiology discomfort still not clear though is bothersome to her. She did have a CT scan of the chest beginning of the month June 2023 which I personally reviewed with her. She does have the evidence of the reticular changes primarily in the periphery of the bases which is very suspicious for UIP pattern or IPF. She has been on the mycophenolate and seems to be helping. She is off the prednisone which is reassuring. Still an antifibrotic agent will be helpful in decreasing the degree of progression. We did look at previous CT scans from 2019 to 2022 in 2023. Seems to be some slight progression from 2021 to now. Therefore will go ahead and request Ofev a t this time. She understands about the side effects. In addition to that she will undergo blood work to make sure she is tolerating the medicine. Send try Lidoderm patch to the affected area regarding the abdominal discomfort. 12/01/2023 the patient is here for a pulmonary follow-up visit. The patient has been doing fairly well with the medications. She is taking 2 g of mycophenolate daily in addition to the Ofev 100 mg daily. Seems to be tolerating well without any significant GI effects. She did have issues with 150 mg dose. In the meantime she continues exercise regularly. She does have shortness of breath with activity but she is usually able to walk for about a now our. Sometimes she has to stop because of more fatigue of her legs. The patient does not use any oxygen which is reassuring. She has not had any imaging studies in June. Will go ahead and plan to repeat her PFTs and chest x-ray within the next 3 months and will review. Hopefully we can decrease her mycophenolate dose some. The patient also will get vaccines. She is going to get her flu and her COVID booster. She knows to stop her mycophenolate several days before and several days after. The patient will also get her RSV vaccine as well she would do the same protocol. She does have a respiratory inhalers. Right now she is stable. 03/22/2024 the patient is here for a pulmonary follow-up visit. Since we last spoke the patient developed severe abdominal discomfort. She was having discomfort before but not as bad. She went to the hospital there she was diagnosed with acute pancreatitis. Although the etiology is not clear. She did have an MRI of the abdomen demonstrating no evidence of any anatomical obstructions to the biliary duct. She is status post cholecystectomy already. Therefore, need to consider other etiologies including medications. She has been Ofev which is did new medication. Will continue for now it can cause hepatitis but no evidence of any significant hepatitis at this time for her. She is also on mycophenolate that is also been shown to cause pancreatitis. Therefore will go ahead and decrease that 1 from 2 g a day to 1 g a day and will can not reassess her condition is here we can decrease it further. For now her abdominal pain is better. Will go ahead and request a repeat blood work in the coming weeks. She is also going to follow-up closely with GI to further address any other etiologies. I did review her CT scan of the abdomen at least the lung cuts we can see that her interstitial lung disease appears to be fairly stable right now. 07/21/2024 the patient is here for a pulmonary follow-up visit. Since we last spoke she did develop significant flu. This was back in April. In addition to that she is slowly stop the mycophenolate. She was supposed to decrease it down to 1 g daily. But, she stopped it completely. She continues in the office although she does not take it daily because it causes significant GI symptoms. She says already significant weight loss. She will have a colonoscopy soon and she has already had her mammogram. Will go ahead and request a repeat CT scan of the chest when she restarts the mycophenolate. She did have a chest x-ray which I personally reviewed. It appears that the interstitial disease seems to be worse, so therefore will have to look at the CT scan chest to see this is still the case. The patient is also having some muscle discomfort. Will go ahead and assess for antisynthetase syndrome. She will follow-up after the CAT scan a couple months. She has any issues prior to this she will call for an earlier assessment. 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 Renal cyst Left flank pain Thoracic spine pain Abnormal chest x-ray Lower abdominal pain JAREK (obstructive sleep apnea) Colon cancer screening Hepatic steatosis JAREK (obstructive sleep apnea) Bibasilar crackles Dyspnea Chronic restrictive lung disease ILD (interstitial lung disease) Memory loss COPD (chronic obstructive pulmonary disease) OAB (overactive bladder) History of postoperative nausea and vomiting Diabetes Insomnia Pulmonary arterial hypertension Surgical History History of cholecystectomy H/O esophagogastroduodenoscopy History of hernia repair History of colonoscopy Family History Father Hx of diabetes insipidus Mother Hx of diabetes insipidus Social History Household Members: Family Housing: Apartment Do you presently have visiting nurse or other home services: Yes Alcohol intake: never Comment: tp refusing bed alarm Patient Tobacco Use Status: Never used Tobacco Years Smoked: 1yr Second Hand Smoke Exposure: No service: No Current occupational status: retired Review of Systems Const Denies fatigue, Denies fever(s), Denies night sweats, Denies poor appetite and Reports weight loss Eyes Details: glasses Reports requires corrective lenses ENT Reports Normal hearing present, Denies dental pain, Denies dysphagia, Denies he aring loss, Denies mouth pain, Denies odynophagia, Denies throat swelling, Denies tongue swelling and Reports other (Dentition adequate) Card Reports dyspnea on exertion Resp Reports cough and Reports dyspnea on exertion GI Reports abdominal pain, Denies melena, Denies bloating, Denies hematochezia, Denies constipation, Denies GI cramping, Denies dysphagia, Denies excessive flatus, Denies early satiety, Denies heartburn, Reports diarrhea, Denies nausea, Denies odynophagia, Denies vomiting and Denies hematemesis Skin/Breast Denies pruritus, Denies lesions, Denies rash and Denies jaundice Neuro Reports Normal hearing present and Denies Abnormal speech present Endo Denies fatigue Aller/Immun Denies throat swelling and Denies tongue swelling Physical Exam Vital Signs: Last Vital Signs Pulse 68 07/21/24 09:05 BP 140/72 H 07/21/24 09:05 Pulse Ox 96 07/21/24 09:05 Oxygen Delivery Method Room Air 07/21/24 09:05 BMI result Body Mass Index 29.7 Const General: alert HEENT General nose exam: Abnormal external nose present and Nasal discharge present Neck Neck: Yes normal visual inspection, Yes full ROM and Yes no lymphadenopathy Chest Chest palpation & inspection: normal inspection of the chest Resp Auscultation: rales bilateral and diminished lung sounds Cardio Rate: regular rate Rhythm: regular rhythm Heart sounds: S1 normal heart sound present and S2 normal heart sound present GI Palpation (GI): Soft to palpation and nontender Auscultation: normal bowel sounds General: Yes no CVA tenderness Back/Spine/Pelvis Back: no CVA tenderness Skin General skin exam: rashes and/or lesions noted Neuro Cranial nerves: Yes Normal hearing present Speech: No Abnormal speech present Extrem General: No clubbing, No cyanosis and Yes edema Assessment & Plan Assessment & Plan (1) Pulmonary arterial hypertension: Comment: secondary Code(s): I27.21 - Secondary pulmonary arterial hypertension Category: Medical (2) COPD (chronic obstructive pulmonary disease): Code(s): J44.9 - Chronic obstructive pulmonary disease, unspecified Category: Medical Qualifiers: COPD type: chronic bronchitis Chronic bronchitis type: simple Qualified Code(s): J41.0 - Simple chronic bronchitis (3) ILD (interstitial lung disease): Comment: progressively worsening based on CT chest Code(s): J84.9 - Interstitial pulmonary disease, unspecified Category: Medical (4) Chronic restrictive lung disease: Code(s): J98.4 - Other disorders of lung Category: Medical (5) Acute pancreatitis: Code(s): K85.90 - Acute pancreatitis without necrosis or infection, unspecified Category: Medical Qualifiers: Acute pancreatitis complication: no infection or necrosis Pancreatitis type: unspecified pancreatitis type Qualified Code(s): K85.90 - Acute pancreatitis without necrosis or infection, unspecified Plan continue symbicort WILFRIDO as needed restart cellcept 1gm/day continue OFEV cough medication: benzonates, rx with goodrx repeat CT chest to assess progression of disease in 2 months Sleep with HOB elevated bloodwork F/U 3 months Orders: Orders GLEN 1 Antibody Today J84.9 - Interstitial pulmonary disease, unspecified Aldolase Today J84.9 - Interstitial pulmonary disease, unspecified Scleroderma 70 Antibody Today J84.9 - Interstitial pulmonary disease, unspecified Sjogren's Antibodies Today J84.9 - Interstitial pulmonary disease, unspecified Angiotensin Converting Enzyme Today J84.9 - Interstitial pulmonary disease, unspecified ARPIT Reflex Titer and Pattern Today J84.9 - Interstitial pulmonary disease, unspecified Erythrocyte Sedimentation Rate Today J84.9 - Interstitial pulmonary disease, unspecified CT chest wo IV con Today J84.9 - Interstitial pulmonary disease, unspecified Medications: New mycophenolate mofetil 500 mg PO BID 60 tabs 6RF 30 days Coding Level of Care Code Est Pt Level 5 (24356) Diagnoses Pulmonary arterial hypertension I27.21 Simple chronic bronchitis J41.0 COPD type: chronic bronchitis Chronic bronchitis type: simple ILD (interstitial lung disease) J84.9 Chronic restrictive lung disease J98.4 Acute pancreatitis without infection or necrosis, unspecified pancreatitis type K85.90 Acute pancreatitis complication: no infection or necrosis Pancreatitis type: unspecified pancreatitis type Time Spent (min) 30
== END 2024-07-21 09:35 | disposition home or self-care (01) ==
LOC: HO.HPS 08:45
PROVIDERS: PCP General Practice; Visit Provider Hospitalist
DX: I27.21 Secondary pulmonary arterial hypertension (principal); J41.0 Simple chronic bronchitis; J84.9 Interstitial pulmonary disease, unspecified; J98.4 Other disorders of lung; K85.90 Acute pancreatitis without necrosis or infection, unspecified
CPT/HCPCS: 99214

== ENCOUNTER → 2024-07-21 08:45 | Outpatient (BNVA) | payer OTHER, SELFPAY | PROVIDERS: PCP General Practice; Visit Provider Hospitalist | DX: I27.21 Secondary pulmonary arterial hypertension (principal); J41.0 Simple chronic bronchitis; J84.9 Interstitial pulmonary disease, unspecified; J98.4 Other disorders of lung; K85.90 Acute pancreatitis without necrosis or infection, unspecified | CPT/HCPCS: 99212 ==

== ENCOUNTER 2024-08-27 13:17 | Outpatient (REF) | payer OTHER, SELFPAY ==
--- NOTE | ~2024-08-27 | CT_ITS ---
EXAMINATION: CT CHEST WITHOUT CONTRAST CLINICAL INFORMATION: Interstitial pulmonary disease COMPARISON: June 23, 2023 TECHNIQUE: Multidetector volumetric CT imaging of the chest was done. Axial MIP volume rendering provided. Sagittal and coronal reformatted images were obtained. This CT examination was performed using dose optimization techniques as appropriate, variously including the following: *Automated exposure control *Adjustment of mA and/or kV according to patient size (this includes techniques or standardized protocols for targeted exams where dose is matched to indication/reason for exam; i.e. extremities or head) *Use of iterative reconstruction technique DLP: 136 mGY*cm FINDINGS: LUNGS: There is lobulated varicose type bronchiectasis in the right lower lobe greater than the left lower lobe. There is possible cystic type bronchiectasis involving the lateral segment right middle lobe bronchus versus pulmonary cyst or bulla. Coarse reticular densities are noted in the periphery of the right greater than left lung and groundglass densities that are slightly more prominent than on prior. MEDIASTINUM: Heart size is within normal limits. There is desiccation of the mitral annulus and aortic valve. Shotty mediastinal or hilar nodes are present CORONARY ARTERY CALCIFICATION: Present PLEURA: There is no pleural effusion or pleural thickening. AXILLA: No lymphadenopathy. UPPER ABDOMEN: The gallbladder is surgically absent. There is extra hepatic biliary ductal dilation. OSSEOUS STRUCTURES: Flowing anterior osteophytes are present in the thoracic spine with disc space narrowing and calcification. Calcific lesions are present adjacent the greater tuberosity of the right humerus in the soft tissues most consistent with calcific tendinitis CT/CT chest wo IV con IMPRESSION: Mild progression of chronic interstitial disease with subtle increased prominence of peripheral reticular and groundglass densities. There is also mild varicose type bronchiectasis in the right lower lobe and more cylindrical type in the left lower lobe. There is possible cystic bronchiectasis in the lateral segment right middle lobe bronchus versus pulmonary cysts. Calcific tendinitis, rotator cuff Coronary artery calcific lesions Fleischner guidelines were followed. Electronically signed by: David Cutler MD 08/27/2024 04:31 PM EDT
--- OUTSIDE RECORDS SUMMARY | 2024-08-27 13:19 | XMS_ITS | Encounter Summary ---
Author Organization [employer] Address [address] [facility] [address] [place] [address] Care Team Providers Care Assembler [employer]unglasses Name Role Phone Aarti Thacker MD Primary Care Provider [phone] Reason for Visit * Reason Comments Med Refill Encounter Details Date Type Department Care Team (Late st Contact Info) Description 08/25/2024 Refill [facility] [address] [place], [place] [phone] Aarti Thacker MD [address], [place] [phone] DISH (diffuse idiopathic skeletal hyperostosis) Social History [...] Answer Date Recorded Patient Health Questionnaire-9 Score 9 08/25/2024 Patient Health Questionnaire-9 Score 9 08/25/2024 Last PHQ-9: Questionnaire Data Not on file 0 08/25/2024 Housing Stability Answer Date Recorded What is your housing situation today? I have myranda howell 08/11/[address] you li ve. Do you have problems with any of the following? None of the above 08/11/2024 Food Insecurity Answer Date Recorded Within the past 12 months, y ou worried that your food would run out before you got money to buy more: Never True 08/11/2024 Within the past 12 months,th e food you bought just didn't last and you didn't have enough money to get more: Never True Transportation Answer Date Recorded In the past 12 months, has l ack of transportation kept you from medical appts, meetings, work or from getting things needed for daily living? No 08/11/2024 Intimate Partner Violence Answer Date R ecorded Within the last year, have y ou been afraid of your partner or ex-partner? 2 08/25/2024 Within the last year, have y ou been humiliated or emotionally abused in other ways by your partner or ex-partner? 2 Within the last year, have y ou been kicked, hit, slapped, or otherwise physically hurt by your partner or ex-partner? 2 08/25/2024 Within the last year, have y ou been raped or forced to have any kind of sexual activity by your partner or ex-partner? 2 08/25/2024 Utilities Answer Date Recorded In the past 12 months, has t he [employer], [employer], oil or water [employer] threatened to shut off services in your home? No 08/11/2024 Depression Answer Date Recorded Patient Health Questionnaire-2 Score 4 08/25/2024 Internet Access Answer Date Recorded Internet Access Q1 Yes 08/11/2024 Internet Access Q2 Not on file 08/11/2024 Comments Unknown Sex and Gender Information Value Date Recorded Sex Assigned at Female 01/21/2022 10:17 AM EDT Legal Sex Female 10:17 AM EDT Gender Identity Female 01/21/2022 10:17 AM EDT Sexual Orientation Straight 01/21/2022 10 :17 AM EDT documented as of this encounter Functional Status * Over the past 2 weeks, how often have you been bothered by any of the following problems? Question Answer Date of Assessment Author Patient Health Questionnaire -2 Score 4 08/25/2024 9:45 AM Aarti Campos MD * Little interest or pleasure in doing things Answer Date of Assessment Author More than half the days 08/25/2024 9:45 AM EDT Aarti Caba MD * Feeling down, depressed, or hopeless Answer Date of Assessment Author More than half the days 08/25/2024 9:45 AM EDT Aarti Caba MD * Trouble falling or staying asleep, or sleeping too much Answer Date of Assessment Author More than half the days 08/25/2024 9:45 AM EDT Aarti Caba MD * Feeling tired or having little energy Answer Date of Assessment Author More than half the days 08/25/2024 9:45 AM MYRIAMT Aarti Caba MD * Poor appetite or overeating Answer Date of Assessment Author Several days 08/25/2024 9:45 AM EDT Aarti Thacker MD * Feeling bad about yourself - or that you are a failure or have let yourself or your family down Answer Date of Assessment Author Not at all 08/25/2024 9:45 AM Aarti Campos MD * Trouble concentrating on things, such as reading the newspaper or watching television Answer Date of Assessment Author Not at all 08/25/2024 9:45 AM Aarti Campos MD * Moving or speaking so slowly that other people could have noticed? Or the opposite - being so fidgety or restless that you have been moving around a lot more than usual. Answer Date of Assessment Author Not at all 08/25/2024 9:45 AM Aarti Campos MD * Thoughts that you would be better off or hurting yourself in some way Answer Date of Assessment Author Not at all 08/25/2024 9:45 AM Aarti Campos MD * Patient Health Questionnaire-9 Score Answer Date of Assessment Author 9 08/25/2024 9:45 AM Aarti Campos MD documented as of this encounter Plan of Treatment Upcoming Encounters Date Type Department Care Team (Late st Contact Info) Description 09/03/2024 9:30 AM EDT Telemedicine [facility] [address] [place] [phone] Tyesha Lock RN documented as of this encounter Goals Goal Patient Goal Type Associated Problems Recent Progress Patient-Stated? Author Patient will adhere to medication regimen General No Genoveva Jones, PharmD Hemoglobin A1c < 7.5 Result Component 6(08/23/2024 4:09 PM EDT) No Genoveva Jones PharmD documented as of this encounter Visit Diagnoses Diagnosis DISH (diffuse idiopathic skeletal hyperostosis) Ankylosing vertebral hyperostosis documented in this encounter Additional Health Concerns Assessment Noted Time PHQ-9 Depression Total Score: 9 08/26/19 25 9:45 AM EDT documented as of this encounter Care Teams Assembler [employer] Sunglasses Relationship Specialty Start Date End Date Aarti Thacker MD [address] [place] [address] PCP - General Family Medicine 02/04/20 documented as of this encounter
== END 2024-08-27 13:18 | disposition home or self-care (01) ==
LOC: HO.CT 13:17
PROVIDERS: PCP General Practice; Visit Provider Hospitalist
DX: J84.9 Interstitial pulmonary disease, unspecified (principal)
CPT/HCPCS: 71250

== ENCOUNTER → 2024-08-27 13:19 | Outpatient (BNV) | payer OTHER, SELFPAY | PROVIDERS: PCP General Practice; Visit Provider Radiology Diagnostic Radiology | DX: J84.9 Interstitial pulmonary disease, unspecified (principal) | CPT/HCPCS: 71250 ==

== ENCOUNTER 2024-09-10 12:47 | Outpatient (REF) | payer OTHER, SELFPAY ==
--- OUTSIDE RECORDS SUMMARY | 2024-09-10 12:50 | XMS_ITS | Encounter Summary ---
Author Organization [employer] Address [address] [facility] [address] [place] [address] Care Team Providers Care Intermediate Manager Name Role Phone Aarti Thacker MD Primary Care Provider [phone] Reason for Visit * Reason Comments Med Refill Encounter Details Date Type Department Care Team (Late st Contact Info) Description 08/25/2024 Refill [facility] [address] [place], [place] [phone] Aarti Thacker MD [address], [place] [phone] DISH (diffuse idiopathic skeletal hyperostosis) Social History [...] the past 12 months, has t he [employer], [employer], oil or water [employer] threatened to shut off services in your [...] Care Team (Late st Contact Info) Description 12/10/2024 9:00 AM EDT Telemedicine [facility] [address] [place] [phone] Tyesha Lock RN documented as of this [...] documented as of this encounter Care Teams Intermediate Manager Relationship Specialty Start Date End Date Aarti Thacker MD [address] [place] [address] PCP - General Family Medicine 02/04/20 documented as of this encounter
[2024-09-10 13:51] LABS: C Reactive Protein 0.14 mg/dL (< or = 0.50); Cholesterol 193 mg/dL (<200); HDL Cholesterol 61 mg/dL (>40); LDL Cholesterol Calculated 107 mg/dL (<100); Lipase 13 U/L (8-78); Triglycerides 126 mg/dL (<150)
[2024-09-10 14:00] LABS: Erythrocyte Sedimentation Rate 29 MM/HR (0-20)
[2024-09-10 14:05] LABS: Creatinine Urine 51.38 mg/dL; Microalbum/Creatinine Ratio Ur 19.4 ug/mg cr (<30)
[2024-09-13 22:43] LABS: Antibody to SS-A Antigen <1.0 NEG AI (<1.0 NEG); Antibody to SS-B Antigen <1.0 NEG AI (<1.0 NEG); JO 1 Antibody <1.0 NEG AI (<1.0 NEG); Scleroderma 70 Antibody <1.0 NEG AI (<1.0 NEG)
[2024-09-14 13:09] LABS: Anti Nuclear Antibody Screen NEGATIVE (NEGATIVE)
[2024-09-14 17:34] LABS: Angiotensin Converting Enzyme 30 U/L (9-67)
[2024-09-15 15:04] LABS: Aldolase 5.1 U/L (<=8.1)
== END 2024-09-10 12:48 | disposition home or self-care (01) ==
LOC: HO.LAB 12:47
PROVIDERS: PCP General Practice; Visit Provider Hospitalist
DX: M48.10 Ankylosing hyperostosis [Forestier], site unspecified (principal); E11.65 Type 2 diabetes mellitus with hyperglycemia; J84.9 Interstitial pulmonary disease, unspecified
CPT/HCPCS: 36415; 80061; 82043; 82085; 82164; 82570; 83690; 85652; 86038; 86140; 86235

== ENCOUNTER 2024-10-18 11:02 | Outpatient (AMB) | payer OTHER, SELFPAY ==
--- NOTE | 2024-10-18 11:05 | MHC.OFFVIS ---
Intake Visit Reasons: 6m/PVR Intake Note: Patient is present for 6M/ PVR Urology Medication:MIRABEGRON Antibiotic Allergy:NONE Blood Thinner:ASPIRIN Last PVR:88ML'S Todays PVR:0ML'S Hazmat Cdl Driver Required: No Hazmat Cdl Driver Services: Hazmat Cdl Driver Present Hazmat Cdl Driver Name: Cinthya [id number] Allergies morphine (MORPHINE) Allergy (Mild, Verified 10/18/24 11:24) NAUSEA, VOMITING, DIZZINESS, HOT FLASHES Medication List - Last Reconciled 10/18/24 by LIAT Jeffers- albuterol sulfate 90 mcg/actuation (Ventolin HFA) 2 inhalations inhalation Q4-6H PRN amlodipine 10 mg PO DAILY aspirin 81 mg PO DAILY atorvastatin 40 mg PO BEDTIME blood sugar diagnostic As directed budesonide-formoterol 160-4.5 mcg/actuation (Symbicort) 2 puffs inhalation BID PRN cholecalciferol (vitamin D3) (Vitamin D3) 50 mcg PO DAILY cyanocobalamin (vitamin B-12) 1,000 mcg PO DAILY furosemide (Lasix) 20 mg PO DAILY PRN 30 days gabapentin 200 mg PO BID lancets As directed knmbvt-rrhrniaf-jllommz 24,000-76,000 -120,000 unit (Creon) 2 caps PO BID losartan 100 mg PO DAILY melatonin 10 mg PO BEDTIME metformin ER 1,000 mg PO BID metoprolol succinate ER 150 mg PO DAILY mirabegron ER (Myrbetriq) 25 mg PO DAILY 90 days mycophenolate mofetil 500 mg PO BID 30 days nintedanib (Ofev) 100 mg PO Q12H omeprazole 20 mg PO DAILY@0630 oxycodone-acetaminophen 5-325 mg 1 tab PO TID PRN sitagliptin phosphate (Januvia) 50 mg PO DAILY sucralfate 2 grams PO DAILY trazodone 100 mg (2 x 50 mg) PO BEDTIME HPI Comments Details: Snehal is a very pleasant 74-year-old Burmese-speaking female patient of Dr. Thacker. She has a PMH of chronic restrictive lung disease, interstitial lung disease, memory loss, COPD, overactive bladder, renal cyst, insomnia, obstructive sleep apnea, and pulmonary arterial hypertension. She presents to the office today for follow-up of her renal cyst and lower urinary tract symptoms. In discussion with the patient today she reports to be doing and feeling well. She denies having had any bothersome urinary issues or concerns since her last office visit here. She discusses feeling Myrbetriq has been extremely helpful in lower urinary tract symptoms she had been experiencing. In office urinalysis results reviewed with the patient today. PVR 0 mL. Previous workup has included a retroperitoneal ultrasound 09/14 noting bilateral kidneys with no hydronephrosis or renal calculi. A benign small 0.8 right-sided Bosniak class 1 cyst is noted that requires no additional follow-up per radiology report. The bladder is well distended and normal. Bilateral jets are demonstrated. Pre void bladder volume is approximately 290 mL. Postvoid bladder volume is approximately 70 mL. She denies hematuria, dysuria, foul smelling urine, changes to urinary stream, flank pain, fever, and or chills. Discussed at length importance of managing diabetes for improvement in lower urinary tract symptoms as well as overall health and well-being. 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 Renal cyst Left flank pain Thoracic spine pain Abnormal chest x-ray Lower abdominal pain JAREK (obstructive sleep apnea) Colon cancer screening Hepatic steatosis JAREK (obstructive sleep apnea) Bibasilar crackles Dyspnea Chronic restrictive lung disease ILD (interstitial lung disease) Memory loss COPD (chronic obstructive pulmonary disease) OAB (overactive bladder) History of postoperative nausea and vomiting Diabetes Insomnia Pulmonary arterial hypertension Surgical History History of cholecystectomy H/O esophagogastroduodenoscopy History of hernia repair History of colonoscopy Family History Father Hx of diabetes insipidus Mother Hx of diabetes insipidus Social History Household Members: Family Housing: Apartment Do you presently have visiting nurse or other home services: Yes Alcohol intake: never Comment: tp refusing bed alarm Patient Tobacco Use Status: Never used Tobacco Years Smoked: 1yr Second Hand Smoke Exposure: No service: No Current occupational status: retired Review of Systems Const Reports as per HPI Eyes Reports no additional complaints ENT Reports as per HPI Card Reports as per HPI Resp Reports as per HPI GI Reports as per HPI Reports as per HPI Musc Reports no additional complaints Neuro Reports no additional complaints Psych Reports no additional complaints Endo Reports as per HPI Geronimo/Lymph Reports no additional complaints Aller/Immun Reports no additional complaints Physical Exam Const General: cooperative, healthy appearing, comfortable, no acute distress, well developed, alert and awake Orientation/consciousness: patient oriented x3 Limitations: no limitations HEENT Head: Yes normal to inspection, Yes normocephalic and Yes atraumatic Ears: hearing grossly normal bilaterally Eyes General: appearance normal, both eyes and all related structures Neck Neck: Yes normal visual inspection and Yes trachea midline Chest Chest palpation & inspection: normal inspection of the chest Resp Effort & Inspection: normal respiratory effort and able to speak in complete sentences Cardio Rate: regular rate GI Inspection: Yes normal to inspection General: Yes no CVA tenderness Back/Spine/Pelvis Back: no CVA tenderness Skin General skin exam: no rashes or lesions noted Neuro General: patient oriented x3 Extrem General: Yes normal to inspection Psych Appearance: grossly normal and well kempt Mental Status: mental status grossly normal Speech and movement: Normal speech and movement present and Clear speech present Affect: normal affect Attitude: cooperative Thought process: Normal thought process present Thought content: Normal thought content present Insight: Fair insight present (Psych) Judgement: Fair judgement present (Psych) Office Procedures Post Void Residual Post Residual Void Post Void Residual (PVR): 0 [id number] Void Residual by ultrasound Results AMB Urinalysis, Automated UA Leukoctes 0 Gabriela/uL Last Edit by BHUPINDER Emerson on 10/18/24 11:30 UA Nitrite Negative Last Edit by BHUPINDER Emerson on 10/18/24 11:30 UA Urobilinogen 0.2 mg/dL Last Edit by BHUPINDER Emerson on 10/18/24 11:30 UA Protein 15 mg/dL Last Edit by BHUPINDER Emerson on 10/18/24 11:30 UA pH 6.0 Last Edit by BHUPINDER Emerson on 10/18/24 11:30 UA Blood 0 Neno/uL Last Edit by BHUPINDER Emerson on 10/18/24 11:30 UA Specific [place] 1.025 Last Edit by BHUPINDER Emerson on 10/18/24 11:30 UA Ketone Negative Last Edit by BHUPINDER Emerson on 10/18/24 11:30 UA Bilirubin 0 mg/dL Last Edit by BHUPINDER Emerson on 10/18/24 11:30 UA Glucose 0 mg/dL Last Edit by BHUPINDER Emerson on 10/18/24 11:30 Assessment & Plan Assessment & Plan (1) Renal cyst: Code(s): N28.1 - Cyst of kidney, acquired Category: Medical (2) OAB (overactive bladder): Code(s): N32.81 - Overactive bladder Category: Medical Plan In office urinalysis results reviewed with the patient today; as noted above. PVR 0 mL. Patient currently denies any bothersome urinary issues or concerns. She reports be happy with her current voiding parameters on Myrbetriq; will continue; refill provided Will continue with surveillance monitoring. Follow-up in 1 year with PVR; or sooner with any issues, concerns, and or questions. Orders: Orders AMB Urinalysis Automated Today Z13.9 - Encounter for screening, unspecified Medications: Refilled mirabegron ER (Myrbetriq) 25 mg PO DAILY 90 tabs 3RF 90 days Patient Instructions: The patient had an opportunity to ask questions regarding the treatment plan. All questions were answered. Physical exam, labs, and imaging were discussed and reviewed in detail. As well as risks, benefits, and discussion of treatment choices. No major barriers to understanding were identified. The patient expressed understanding and agreement with the above treatment plan. The patient was made aware they should contact our office by phone for worsening of their current condition, the appearance of new symptoms, or with any questions or concerns. Compliance is encouraged with any medications and follow up testing that is ordered. It is a privilege to be allowed the opportunity to participate in? your urological care.? Again, if you have any questions or concerns If you have any questions or concerns please do not hesitate to contact me. The office is [phone]. This note is constructed using voice recognition software. While every effort has been made to ensure accuracy yarn skeins examiner errors may have been included. Yours sincerely, ACE Jeffers Coding Level of Care Code Est Pt Level 3 (48089) Complex EM visit Add On G2211 Diagnoses Renal cyst N28.1 OAB (overactive bladder) N32.81 CPT Codes Post Residual Void - PVR CPT Code: 29464-Seal Void Residual by ultrasound ([id number])
== END 2024-10-18 11:32 | disposition home or self-care (01) ==
LOC: HO.HUSH 11:03
PROVIDERS: PCP General Practice; Visit Provider Nurse Practitioner Family
DX: N28.1 Cyst of kidney, acquired (principal); N32.81 Overactive bladder; Z13.9 Encounter for screening, unspecified
CPT/HCPCS: 99213; G2211

== ENCOUNTER → 2024-10-18 11:02 | Outpatient (BNVA) | payer OTHER, SELFPAY | PROVIDERS: PCP General Practice; Visit Provider Nurse Practitioner Family | DX: N32.81 Overactive bladder (principal); N28.1 Cyst of kidney, acquired | CPT/HCPCS: 51798; 81003; 99212 ==

== ENCOUNTER 2024-11-16 10:00 | Outpatient (AMB) | payer OTHER, SELFPAY ==
[2024-11-16 10:07] VITALS: BP 130/84; PULSE 78; O2SAT 97; BMI 32.1
--- NOTE | 2024-11-16 10:07 | MHC.OFFVIS ---
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 She also has obstructive airway disease and has been on short-acting beta agonist. She has been having increasing shortness of breath. And she has been using her rescue inhaler with partial response. At this point will start her on a maintenance inhaler. In addition to that in view of her pulmonary hypertension will go ahead and request an overnight oximetry to assess her for nocturnal hypoxia. She does have any evidence of any nocturnal hypoxia will be imperative to start her on oxygen supplementation to treat her underlying pulmonary hypertension. 04/29/2022 the patient is here for a pulmonary follow-up visit. Recently she went to the ER because of worsening respiratory symptoms and cough. There she had a chest x-ray without any significant changes show she does have the reticulonodular opacities her interstitial lung disease. Since we last spoke the patient was supposed to undergo blood work and she has not done as of yet. In addition to that the patient did not feel healthy enough to have a sleep study. Therefore she did not have that either. The patient is frustrated that she is no better. Although she also did not follow through with the recommendations. She was provided with prednisone in the hospital and did help her symptoms. She has completed the course at this time. She also finished a course of antibiotics. Again, she has significant interstitial lung disease. Her total lung capacity is decreased consistent with chronic restrictive lung disease from the interstitial lung disease. The etiologies still is unclear. Patient understands the blood work to help try to clear up the etiology of the fibrosis. Indeed, if this fibrosis is progressive then anti fibrotic agents will be warranted. Since the patient is developing significant cough and shortness of breath we did taken for brief walking oximetry in the patient was able to maintain a pulse ox in the low 90s. Therefore the patient does not qualify for oxygen. based on her ongoing symptoms will go ahead and put her on a small dose of prednisone to see if we can stabilize her condition as we move further. The patient understands the importance of the blood work that she needs to get prior to the next visit. In addition to that we briefly spoke about lung biopsies. The patient is reluctant to undergo any invasive or semi-invasive interventions at this time. 05/20/2022 the patient is here for a pulmonary follow-up visit. Overall the patient has been feeling a little better. She is tolerating the prednisone. We did review all her blood work. No evidence of any connective tissue conditions or hyper sensitivity reaction to we can identify. Therefore, no clear etiology for her interstitial lung disease. We talked about diagnostic interventions which is biopsies. However, explained to the patient that this may not necessarily change the overall treatment plan. Therefore will continue to assess the response to prednisone. I am hopeful that she response. we can better assess this will be repeating her imaging studies. In the meantime she continues to cough. The benzo night work great for her cough. Although the not covered. We did look for different alternatives including going with good Rx to see if she can get him on a lower walker. These probably be the best option. Also, we did talk about the if there is any evidence of any progression of her pulmonary fibrosis to suggest progressive idiopathic pulmonary fibrosis then we can consider antifibrotic therapies at that time. 06/18/2022 the patient is here for a pulmonary follow-up visit. The patient overall is feeling better. She is is bonding well to the prednisone. Only taking 10 mg. Her prescription for the Benzonate is with still that [employer] and she did take a very low walker which she is happy about. Her sugars are reasonable staying in the normal range. We did talk about if there is any worsening of the interstitial lung disease suggesting progressive pulmonary fibrosis then we will start Ofev. While give her some reading material in order for her to read up on it. I do believe that she will benefit from the medication if there is any evidence of progression of disease. She does continue to have issues with her sleep. She does wake up tired with headaches. Will perform an overnight oximetry to make sure that she does not need oxygen supplementation. In the meantime she continues with respiratory therapy with good effect. She does continue the Bentson eyes again with very good response improving her cough overall. 07/29/2022 the patient is here for pulmonary follow-up visit. She is feeling a little better on the prednisone and also continues on the Bentson eyes with good effect. Her cough is overall better. She still has some dyspnea on exertion with activity which is mild severity. We did review her last CT scan of the chest that she had in June 2022 demonstrating interval worsening of the interstitial lung disease as well as evidence of scarring and some evidence of ground-glass opacities. She therefore, based on the worsening disease I am concerned that she continued to have progressive symptoms. At the basilar progressive interstitial lung disease with pulmonary fibrosis I do believe that she will be a good candidate for Ofev. Will go ahead and request a prior approval from her insurance company. She is in the meantime she continues on the prednisone. She is concerned about the side effects of prednisone but I do believe that she needs additional anti-inflammatory effect due to her ongoing symptoms and findings. Therefore, will go ahead and start him on CellCept. We did talk about potential biopsy. The patient is going to think about it. Will try these medication changes at this time. However, if the patient is no better or there is any worsening of disease then will have to further consider a biopsy. If the patient does need a biopsy and wedge biopsy will be passed 10/29/2022 the patient is here for pulmonary follow-up visit. She continues to have cough and also shortness of breath with activity. I did had sent her prescription for mycophenolate when she was last here. 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 He has been now about 3 months. Explained to her that it appears that she has interval worsening of her interstitial lung disease. She also has diabetes was difficult to increase her prednisone. Mycophenolate will be a very good option in order to decrease the inflammation and hopefully decrease the risk of further scarring. The patient also reviewed the CT scan with me. I did show her the CT scan she had back in 2021 and a CAT scan of 2022 demonstrating worsening of disease. The patient will start the mycophenolate at this time. I did write it down for her so she can start with 1 daily and then increase it to twice a day. In November she is going to come in and get x-rays and also blood work and will follow-up with her at that time. Will plan to repeat her PFTs sometime in February. Also we talked about Ofev. This is a medication we have sent to the pharmacy. We did send a script but not clear what happened as far as the process. I did reach out to our staff in the office to try to get an update of what occurred with the medication Request. Again I reviewed the blood work that we did with her. No evidence of any connective tissue disease. No evidence of any hypersensitivity pneumonitis. Her scarring is primarily at the base suggesting the possibility of UIP versus I fibrotic NSIP. Will see her response to therapy. If the patient does not have any significant response to the therapy then will consider surgical biopsy. 12/20/2022 the patient is here for a pulmonary follow-up visit. The patient continues to be about the same. She does have the frequent constant cough. It is nonproductive in nature. Responds well to the current medications. She also has shortness of breath with activity. Does not feel like she is getting any worse from the last visit. The patient did have a repeat chest x-ray demonstrating some interval worsening though. Therefore she understands that this interstitial lung disease may indeed be progressive which is a concern. She has been on mycophenolate although she is only taking 1 tablet daily with which she was supposed to be taking more. Therefore I did write down the instructions on how she is to take the mycophenolate. She is going to titrate up to hopefully 2 tablets b.i.d.. Blood work was reassuring without any evidence of any organ toxicity. When she reaches she is the 2 g a day does she will go ahead and have additional blood work. When she is on 2 g the patient will also cut down on the prednisone. We did talk about Ofev has good option for her specially if indeed this appears to be a per aggressive interstitial fibrosis. Therefore, will see how she responds to this current increase medications she will have a repeat chest x-ray and if there is any worsening of symptoms and or imaging studies then will go ahead and start Ofev. 03/18/2023 the patient is here for a pulmonary follow-up visit. Overall the patient has been doing well. Her cough is overall better. She still has dyspnea on exertion mild in severity. She continues to take the prednisone 10 mg daily and also was able to increase the mycophenolate now taking 1000 mg in the morning and 500 mg at nighttime. She did have a chest x-ray which I personally reviewed. I will see any significant changes although which still waiting for the final read. The patient has not started the also bibasilar yet. I am unsure if it was not approved by the insurance. At this point will do is we will go ahead and maximize her mycophenolate to 1000 mg twice a day and also she can decrease the prednisone some because of her history of diabetes. Will plan to repeat a CT scan in June closer to her last CT scan to see if there is any progression of the interstitial lung disease. If there is any progression of the eye LD then starting her on Ofev will be very important. If the patient has any worsening symptoms prior to the next visit she will call the office for an earlier assessment. Otherwise will follow-up then. 07/21/2023 the patient is here for a pulmonary follow-up visit. She has been tolerating mycophenolate well. She is now up to 2 g a day. She is off the prednisone altogether which is reassuring. She continues shortness of breath with activities about the same. She is also complaining of left-sided flank discomfort. The etiology discomfort still not clear though is bothersome to her. She did have a CT scan of the chest beginning of the month June 2023 which I personally reviewed with her. She does have the evidence of the reticular changes primarily in the periphery of the bases which is very suspicious for UIP pattern or IPF. She has been on the mycophenolate and seems to be helping. She is off the prednisone which is reassuring. Still an antifibrotic agent will be helpful in decreasing the degree of progression. We did look at previous CT scans from 2019 to 2022 in 2023. Seems to be some slight progression from 2021 to now. Therefore will go ahead and request Ofev at this time. She understands about the side effects. In addition to that she will undergo blood work to make sure she is tolerating the medicine. Send try Lidoderm patch to the affected area regarding the abdominal discomfort. 12/01/2023 the patient is here for a pulmonary follow-up visit. The patient has been doing fairly well with the medications. She is taking 2 g of mycophenolate daily in addition to the Ofev 100 mg daily. Seems to be tolerating well without any significant GI effects. She did have issues with 150 mg dose. In the meantime she continues exercise regularly. She does have shortness of breath with activity but she is usually able to walk for about a now our. Sometimes she has to stop because of more fatigue of her legs. The patient does not use any oxygen which is reassuring. She has not had any imaging studies in June. Will go ahead and plan to repeat her PFTs and chest x-ray within the next 3 months and will review. Hopefully we can decrease her mycophenolate dose some. The patient also will get vaccines. She is going to get her flu and her COVID booster. She knows to stop her mycophenolate several days before and several days after. The patient will also get her RSV vaccine as well she would do the same protocol. She does have a respiratory inhalers. Right now she is stable. 03/22/2024 the patient is here for a pulmonary follow-up visit. Since we last spoke the patient developed severe abdominal discomfort. She was having discomfort before but not as bad. She went to the hospital there she was diagnosed with acute pancreatitis. Although the etiology is not clear. She did have an MRI of the abdomen demonstrating no evidence of any anatomical obstructions to the biliary duct. She is status post cholecystectomy already. Therefore, need to consider other etiologies including medications. She has been Ofev which is did new medication. Will continue for now it can cause hepatitis but no evidence of any significant hepatitis at this time for her. She is also on mycophenolate that is also been shown to cause pancreatitis. Therefore will go ahead and decrease that 1 from 2 g a day to 1 g a day and will can not reassess her condition is here we can decrease it further. For now her abdominal pain is better. Will go ahead and request a repeat blood work in the coming weeks. She is also going to follow-up closely with GI to further address any other etiologies. I did review her CT scan of the abdomen at least the lung cuts we can see that her interstitial lung disease appears to be fairly stable right now. 07/21/2024 the patient is here for a pulmonary follow-up visit. Since we last spoke she did develop significant flu. This was back in April. In addition to that she is slowly stop the mycophenolate. She was supposed to decrease it down to 1 g daily. But, she stopped it completely. She continues in the office although she does not take it daily because it causes significant GI symptoms. She says already significant weight loss. She will have a colonoscopy soon and she has already had her mammogram. Will go ahead and request a repeat CT scan of the chest when she restarts the mycophenolate. She did have a chest x-ray which I personally reviewed. It appears that the interstitial disease seems to be worse, so therefore will have to look at the CT scan chest to see this is still the case. The patient is also having some muscle discomfort. Will go ahead and assess for antisynthetase syndrome. She will follow-up after the CAT scan a couple months. She has any issues prior to this she will call for an earlier assessment. 11/16/2024 the patient is here for a pulmonary follow-up visit. Overall she is doing okay. She does complaint of worsening cough. Also some dyspnea on exertion. Moderate severity. The Tessalon Perles do help but sometimes they are not covered. She did have repeat CT scan of the chest which I personally reviewed. Appears that the patient has some slight progression of the interstitial changes bilaterally compared to the CAT scan from 2023. Therefore we talked about the importance of continuing medications. Seems like she does get nauseous and she has had some weight loss related to the Ofev. She is already on the lower dose. For now she can take a break for several days and see if she gets any relief. But based on the progression of disease will be important to try to continue some therapy. In addition to that we will try to increase the mycophenolate again. We did decrease it the last time because of the pancreatitis. Seems to be doing better so will slowly increase it to 1 g in the morning and 500 mg at nighttime. She seemed to have had stability of disease when she was not higher dose. The patient also has having cough likely some bronchospasms. Her cough appears to be more bronchospastic. She has not been using the Symbicort because she does not like the way it makes her feel. Will go ahead and switch over to Trelegy I do believe Trelegy will be more effective for her helping her symptoms with a longer duration of effectiveness. Will follow-up in 3-4 months. If she has any issues prior to this she will call for further recommendations. 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 Renal cyst Left flank pain Thoracic spine pain Abnormal chest x-ray Lower abdominal pain JAREK (obstructive sleep apnea) Colon cancer screening Hepatic steatosis JAREK (obstructive sleep apnea) Bibasilar crackles Dyspnea Chronic restrictive lung disease ILD (interstitial lung disease) Memory loss COPD (chronic obstructive pulmonary disease) OAB (overactive bladder) History of postoperative nausea and vomiting Diabetes Insomnia Pulmonary arterial hypertension Surgical History History of cholecystectomy H/O esophagogastroduodenoscopy History of hernia repair History of colonoscopy Family History Father Hx of diabetes insipidus Mother Hx of diabetes insipidus Social History Household Members: Family Housing: Apartment Do you presently have visiting nurse or other home services: Yes Alcohol intake: never Comment: tp refusing bed alarm Patient Tobacco Use Status: Never used Tobacco Years Smoked: 1yr Second Hand Smoke Exposure: No service: No Current occupational status: retired Review of Systems Const Denies fatigue, Denies fever(s), Denies night sweats, Denies poor appetite and Reports weight loss Eyes Details: glasses Reports requires corrective lenses ENT Reports Normal hearing present, Denies dental pain, Denies dysphagia, Denies hearing loss, Denies mouth pain, Denies odynophagia, Denies throat swelling, Denies tongue swelling and Reports other (Dentition adequate) Card Reports dyspnea on exertion Resp Reports cough and Reports dyspnea on exertion GI Reports abdominal pain, Denies melena, Denies bloating, Denies hematochezia, Denies constipation, Denies GI cramping, Denies dysphagia, Denies excessive flatus, Denies early satiety, Denies heartburn, Reports diarrhea, Denies nausea, Denies odynophagia, Denies vomiting and Denies hematemesis Skin/Breast Denies pruritus, Denies lesions, Denies rash and Denies jaundice Neuro Reports Normal hearing present and Denies Abnormal speech present Endo Denies fatigue Aller/Immun Denies throat swelling and Denies tongue swelling Physical Exam Vital Signs: Last Vital Signs Pulse 78 11/16/24 10:07 BP 130/84 11/16/24 10:07 Pulse Ox 97 11/16/24 10:07 Oxygen Delivery Method Room Air 11/16/24 10:07 BMI result Body Mass Index 32.1 Const General: alert HEENT General nose exam: Abnormal external nose present and Nasal discharge present Neck Neck: Yes normal visual inspection, Yes full ROM and Yes no lymphadenopathy Chest Chest palpation & inspection: normal inspection of the chest Resp Auscultation: rales bilateral and diminished lung sounds Cardio Rate: regular rate Rhythm: regular rhythm Heart sounds: S1 normal heart sound present and S2 normal heart sound present GI Palpation (GI): Soft to palpation and nontender Auscultation: normal bowel sounds General: Yes no CVA tenderness Back/Spine/Pelvis Back: no CVA tenderness Skin General skin exam: rashes and/or lesions noted Neuro Cranial nerves: Yes Normal hearing present Speech: No Abnormal speech present Extrem General: No clubbing, No cyanosis and Yes edema Results Reviewed Results Reviewed: [address] [address] [address] Scan Report Signed Patient: Snehal Ryan MR#: [id number] : 1950 Acct:[id number] Age/Sex: 74 / F ADM Date: 08/27/24 Loc: HO.CT Attending Dr: Van Hill MD Ordering Physician: Van Hill MD Date of Service: 08/27/24 Procedure(s): CT chest wo IV con Accession Number(s): [id number] cc: Aarti Thacker; Van Hill MD~ Report Number: [id number]: Total DLP = 136.00 mGy-cm EXAMINATION: CT CHEST WITHOUT CONTRAST CLINICAL INFORMATION: Interstitial pulmonary disease COMPARISON: June 23, 2023 TECHNIQUE: Multidetector volumetric CT imaging of the chest was done. Axial MIP volume rendering provided. Sagittal and coronal reformatted images were obtained. This CT examination was performed using dose optimization techniques as appropriate, variously including the following: *Automated exposure control *Adjustment of mA and/or kV according to patient size (this includes techniques or standardized protocols for targeted exams where dose is matched to indication/reason for exam; i.e. extremities or head) *Use of iterative reconstruction technique DLP: 136 mGY*cm FINDINGS: LUNGS: There is lobulated varicose type bronchiectasis in the right lower lobe greater than the left lower lobe. There is possible cystic type bronchiectasis involving the lateral segment right middle lobe bronchus versus pulmonary cyst or bulla. Coarse reticular densities are noted in the periphery of the right greater than left lung and groundglass densities that are slightly more prominent than on prior. MEDIASTINUM: Heart size is within normal limits. There is desiccation of the mitral annulus and aortic valve. Shotty mediastinal or hilar nodes are present CORONARY ARTERY CALCIFICATION: Present PLEURA: There is no pleural effusion or pleural thickening. AXILLA: No lymphadenopathy. UPPER ABDOMEN: The gallbladder is surgically absent. There is extra hepatic biliary ductal dilation. OSSEOUS STRUCTURES: Flowing anterior osteophytes are present in the thoracic spine with disc space narrowing and calcification. Calcific lesions are present adjacent the greater tuberosity of the right humerus in the soft tissues most consistent with calcific tendinitis CT/CT chest wo IV con IMPRESSION: Mild progression of chronic interstitial disease with subtle increased prominence of peripheral reticular and groundglass densities. There is also mild varicose type bronchiectasis in the right lower lobe and more cylindrical type in the left lower lobe. There is possible cystic bronchiectasis in the lateral segment right middle lobe bronchus versus pulmonary cysts. Calcific tendinitis, rotator cuff Coronary artery calcific lesions Fleischner guidelines were followed. Electronically signed by: David Cutler MD 08/27/2024 04:31 PM EDT RP Dictated By: David Cutler MD Signed By: <Electronically signed by David Cutler MD in OV> 08/27/24 1631 DD/ 1322 TD/TT: 08/27/24 1438 Special Projects Manager: Assessment & Plan Assessment & Plan (1) Pulmonary arterial hypertension: Comment: secondary Code(s): I27.21 - Secondary pulmonary arterial hypertension Category: Medical (2) COPD (chronic obstructive pulmonary disease): Code(s): J44.9 - Chronic obstructive pulmonary disease, unspecified Category: Medical Qualifiers: COPD type: chronic bronchitis Chronic bronchitis type: simple Qualified Code(s): J41.0 - Simple chronic bronchitis (3) ILD (interstitial lung disease): Comment: progressively worsening based on CT chest Code(s): J84.9 - Interstitial pulmonary disease, unspecified Category: Medical (4) Chronic restrictive lung disease: Code(s): J98.4 - Other disorders of lung Category: Medical Plan stop symbicort Start Trelegy WILFRIDO as needed Increase cellcept 1gm am, 500mg PM continue OFEV 100mg cough medication: benzonates, rx with goodrx Sleep with HOB elevated bloodwork F/U 3 months Orders: Orders Complete Blood Count Auto Diff Today J84.9 - Interstitial pulmonary disease, unspecified Basic Metabolic Panel Today J84.9 - Interstitial pulmonary disease, unspecified Liver Panel Today J84.9 - Interstitial pulmonary disease, unspecified Erythrocyte Sedimentation Rate Today J84.9 - Interstitial pulmonary disease, unspecified Lipase Today J84.9 - Interstitial pulmonary disease, unspecified Medications: New uqyhmojopsn-nnspdlcut-ypceyqwc 200-62.5-25 mcg (Trelegy Ellipta) 1 inh inhalation DAILY 60 ea 12RF 30 days benzonatate 200 mg PO BID 30 days PRN 30 caps 11RF cough benzonatate 200 mg PO BID PRN 60 caps 11RF cough 30 days Changed From mycophenolate mofetil 500 mg PO BID 30 days 60 tabs 6RF To mycophenolate mofetil orally 2 times a day; Take 2 tablets in AM, 1 tab in PM 90 tabs 6RF 30 days Coding Level of Care Code Est Pt Level 5 (91854) Complex EM visit Add On G2211 Diagnoses Pulmonary arterial hypertension I27.21 Simple chronic bronchitis J41.0 COPD type: chronic bronchitis Chronic bronchitis type: simple ILD (interstitial lung disease) J84.9 Chronic restrictive lung disease J98.4 Time Spent (min) 45
--- OUTSIDE RECORDS SUMMARY | 2024-11-16 10:43 | XMS_ITS ---
Author Organization [employer] [facility] Address [address] [place] [address] 7 [place] [address] Care Team Providers Care Milk Receiver Tank Truck Name Role Phone Aarti Thacker MD Primary Care Provider [phone] SUPERVISOR [employer] DEPARTMENT Status:Enrolled (Active) Start date:05/07/2022 Enrollment date:05/07/2022 Enrollment reason:Identified using pharmacy data Current support & services provided:Tier 4 (SUPERVISOR PAINT DEPARTMENT) Case Team Name Relationship Phone Tyesha Lock RN(Responsible Staff) Registered Nu rselizabeth Continued Care and Services Coordination
--- OUTSIDE RECORDS SUMMARY | 2024-11-16 10:43 | XMS_ITS | Encounter Summary ---
Author Organization [employer] Address [address] [place] [address] Care Team Providers Care Muffler Mechanic Name Role Phone Aarti Thacker MD Primary Care Provider [phone] Encounter Details Date Type Department Care Team ([facility] st Contact Info) Description 04/05/2024 Telephone [facility] [address] [place], [place] [phone] Aarti Thacker MD [address] [place], [place] [phone] Social History Tobacco Use Types Packs/Day Years [...] Info) Description 12/10/2024 9:00 AM EDT Telemedicine [facility] [address] [place] [address] Tyesha Lock, RASHAUN documented as of this encounter Goals Goal Patient Goal Type Associated Problems Recent Progress Patient-Stated? Author Patient will adhere to medication regimen General No Yossis-Gambl Genoveva johnson, PharmD Hemoglobin A1c < 7.5 Result Component 6(08/23/2024 4:09 PM EDT) No Yossis-Gambl Genoveva johnson, PharmD documented as of this encounter Visit Diagnoses Not on filedocumented in this encounter Additional Health Concerns Assessment Noted Time PHQ-9 Depression Total Score: 0 07/03/19 24 10:52 AM EDT documented as of this encounter Care Teams Muffler Mechanic Relationship Specialty Start Date End Date Aarti Thacker MD [address] [place] [address] PCP - General Family Medicine 02/04/20 documented as of this encounter
--- OUTSIDE RECORDS SUMMARY | 2024-11-16 10:43 | XMS_ITS | Encounter Summary ---
Author Organization [employer] Address [address] [facility] 7t [place] [address] Care Team Providers Care Progress Developer Name Role Phone Aarti Thacker MD Primary Care Provider [phone] Reason for Visit * Reason Comments Med Refill Encounter Details Date Type Department Care Team (Late st Contact Info) Description 08/25/2024 Refill [facility] [address] [place], [place] [phone] Aarti Thacker MD [address] [place], [place] [phone] DISH (diffuse idiopathic skeletal hyperostosis) Social History [...] the past 12 months, has t he [employer], oil or water [employer] threatened to shut off services in your [...] Info) Description 12/10/2024 9:00 AM EDT Telemedicine [facility] [address] [place] [phone] Tyesha Lock RN documented as of this [...] documented as of this encounter Care Teams Progress Developer Relationship Specialty Start Date End Date Aarti Thacker MD [address] [place] [address] PCP - General Family Medicine 02/04/20 documented as of this encounter
--- OUTSIDE RECORDS SUMMARY | 2024-11-16 10:43 | XMS_ITS | Encounter Summary ---
Author Organization [employer] Address [address] [facility] 7t [place] [address] Care Team Providers Care Manager Transport Name Role Phone Aarti Thacker MD Primary Care Provider [phone] Encounter Details Date Type Department Care Team (Late Contact Info) Description 11/19/2022 Abstract [facility] MED[facility]INE [address] [place] [phone] Aarti Thacker MD [address] [place] [address] [phone] Social History Tobacco Use Types Packs/Day Years [...] Info) Description 12/10/2024 9:00 AM EDT Telemedicine [facility] MED[facility]INE [address] [place] [phone] Tyesha Lock RN documented as of this encounter Visit Diagnoses Not on filedocumented in this encounter Care Teams Manager Transport Relationship Specialty Start Date End Date Aarti Thacker MD [address] [place] [address] PCP - General Family Medicine 02/04/20 documented as of this encounter
--- OUTSIDE RECORDS SUMMARY | 2024-11-16 10:43 | XMS_ITS | Encounter Summary ---
Author Organization [employer] Address [address] [facility] [address]t [place] [address] Care Team Providers Care Upholstery Cutter Name Role Phone Aarti Thacker MD Primary Care Provider [phone] Reason for Visit * Reason Comments Med Refill Encounter Details Date Type Department Care Team ([facility] st Contact Info) Description 11/14/2023 Refill [facility] [address] [place], [place] [phone] Aarti Thacker MD [address] [place], [place] [phone] Social History Tobacco Use Types Packs/Day Years [...] Info) Description 12/10/2024 9:00 AM EDT Telemedicine [facility]INE [address] [place] [phone] Tyesha Lock, RASHAUN documented as of this [...] documented as of this encounter Care Teams Upholstery Cutter Relationship Specialty Start Date End Date Aarti Thacker MD [address] [place] [address] PCP - General Family Medicine 02/04/20 documented as of this encounter
--- OUTSIDE RECORDS SUMMARY | 2024-11-16 10:43 | XMS_ITS | Encounter Summary ---
Author Organization [employer] Address [address] [place] [address] [address] [place] [address] Care Team Providers Care Western Philosophy Professor Name Role Phone Aarti Thacker MD Primary Care Provider [phone] Reason for Visit * Reason Comments Med Refill Encounter Details Date Type Department Care Team (Late Contact Info) Description 10/20/2022 Refill [facility] MEDICINE [address] [place] [phone] Cristina Mcginnis FNP [address] [place], [place] [phone] Social History Tobacco Use Types Packs/Day Years [...] Info) Description 12/10/2024 9:00 AM EDT Telemedicine [facility]INE [address] [place] [phone] Tyesha Lock RN documented as of this encounter Visit Diagnoses Not on filedocumented in this encounter Care Teams Western Philosophy Professor Relationship Specialty Start Date End Date Aarti Thacker MD [address] [place] [address] PCP - General Family Medicine 02/04/20 documented as of this encounter
--- OUTSIDE RECORDS SUMMARY | 2024-11-16 10:43 | XMS_ITS | Encounter Summary ---
Author Organization [employer] Address [address] [facility] 7t [place] [address] Care Team Providers Care Dependency Counselor Name Role Phone Aarti Thacker MD Primary Care Provider [phone] Encounter Details Date Type Department Care Team (Latest Contact Info) Description 08/03/2018 Abstract [facility] CONVERSIONS Dental, Provider, DDS Social [...] Info) Description 12/10/2024 9:00 AM EDT Telemedicine [facility] MEDICINE [address] [place] [address] Tyesha Lock, RN documented as of this encounter Visit Diagnoses Not on filedocumented in this encounter Care Teams Dependency Counselor Relationship Specialty Start Date End Date Aarti Thacker MD [address] [place] [address] PCP - General Family Medicine 02/04/20 documented as of this encounter
--- OUTSIDE RECORDS SUMMARY | 2024-11-16 10:43 | XMS_ITS | Clinical Summary ---
Author Organization [employer] Address [address] [facility] [address] [place] [address] Care Team Providers Care Pain Management Physician Name Role Phone Aarti Thacker MD Primary Care Provider [phone] Allergies Active Allergy Reactions Criticality Noted Date Comments Lisinopril Cough 09/05/2010 Morphine 02/07/2012 Medications atorvastatin (Lipitor) 40 MG tablet Take 1 tablet by mouth at bed time. Active furosemide (Lasix) 20 MG tablet Take 1 tablet by mouth 1 (one) time each day. Active losartan (Cozaar) 100 MG tablet Take 1 tablet by mouth 1 (one) time each day. Active Blood Pressure Monitoring (Blood Pressure Cuff) miscIndications:B enign hypertension Use to check your blood pressure daily 1 each Active Symbicort 160-4.5 MCG/ACT inhaler Active omeprazole (PriLOSEC) [address] capsule TAKE 1 CAPSULE BY MOUTH TWICE DAILY IN THE MORNING AND IN THE EVENING Active traZODone (Desyrel) 50 MG tablet Active Blood Glucose Monitoring Suppl (FreeStyle Lite) [...] BY MOUTH IN THE MORNING 023 Active pancrelipase, Qzb-Wzqa-Hppx, (Creon) 08687-38284 units capsule Take 2 capsules by mouth 2 times daily. Active cyanocobalamin (Vitamin B-12) 1000 MCG tablet TAKE 1 TABLET BY MOUTH EVERY MORNING 90 tablet 3 024 Active gabapentin (Neurontin) 100 MG capsuleIndication s:Diabetic polyneuropathy associated with type 2 diabetes mellitus ([facility]) Take 2 capsules (200 mg) by mouth 2 times daily. 120 capsule 11 024 2024 Active aspirin (Aspirin Low Dose) 81 MG EC tablet TAKE 1 TABLET BY MOUTH EVERY EVENING 90 tablet 3 024 Active amLODIPine (Norvasc) 10 MG tabletIndications :Essential (primary) hypertension TAKE 1 TABLET BY MOUTH EVERY MORNING 90 tablet 3 025 Active TRUEplus Lancets 33G miscIndications:T ype 2 diabetes mellitus with hyperglycemia, without long-term current use of insulin ([facility] USE TO TEST BLOOD SUGAR TWICE DAILY 100 each 11 025 Active FREESTYLE LITE test stripIndications: Type 2 diabetes mellitus with hyperglycemia, without long-term current use of insulin ([facility] USE TO TEST BLOOD SUGAR TWICE DAILY 100 strip 11 025 Active melatonin 5 MG tablet TAKE 2 TABLETS BY MOUTH EVERY DAY AT BEDTIME 180 tablet 1 025 Active metFORMIN XR (Glucophage-XR) 500 MG 24 hr tabletIndications :Type 2 diabetes mellitus with diabetic polyneuropathy, without long-term current use of insulin ([facility] Take 1 tablet (500 mg) by mouth 2 times daily. 180 tablet 3 025 Active albuterol 108 (90 Base) MCG/ACT inhalerIndication s:Interstitial lung disease ([facility]) Inhale 2 puffs every 4 (four) hours if needed for wheezing. 18 g 11 025 2025 Active D3 Super Strength 50 MCG (2000 UT) capsule TAKE 1 CAPSULE BY MOUTH EVERYDAY AT NOON 90 capsule 3 025 Active Ofev 100 MG capsule TAKE 1 CAPSULE BY MOUTH EVERY TWELVE HOURS 60 capsule 3 025 Active oxyCODONE-acetami nophen (Percocet) 5-325 MG tabletIndications :DISH (diffuse idiopathic skeletal hyperostosis) Take 1 tablet by mouth every 8 (eight) hours if needed for severe pain. Do not start before October 28, 2024. 84 tablet 025 Active oxyCODONE-acetami nophen (Percocet) 5-325 MG tabletIndications :DISH (diffuse idiopathic skeletal hyperostosis) Take 1 tablet by mouth every 8 (eight) hours if needed for severe pain. Do not start before September 30, 2024. 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 and pt understands risks and benefits of medication Feels back pain is worsening, and radiating into hip and down leg Will obtain DEXA (age > 65, post menopause, and correction steroid use) and disposition to rheum/ortho after [...] Night-time oxygen study Obstructive sleep apnea 03/18/2022 Renal cyst 02/05/2022 Abnormal colonoscopy 12/08/2020 [...] insufficiency 10/29/2019 Tricuspid valve incompetence, non-rheumatic 09/22 PLMD (periodic limb movement disorder) 9 Asthma 10/23/2018 Pulmonary hyperinflation 09/07/2018 Abdominal pain 07/22/2016 Female stress incontinence 07/22/2016 Assessment & Plan (06/07/2022 9:52 AM EDT): Need incontinence pads and wipes Trigger finger 08/21/2012 Adjustment disorder 07/24/2012 Assessment & Plan (08/25/2024 10:02 AM EDT): 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 Decliens medications or therapy Onychomycosis 06/02/2012 Dizziness 04/24/2012 Family history of cardiovascular disease 013 Diabetes mellitus type 2 with peripheral artery disease 03/30/2012 Abnormal mammogram 01/17/2012 Hypercholesterolemia 09/17/2010 Gastroesophageal reflux [...] moderate exercise most days of the week Type 2 diabetes mellitus wit h diabetic polyneuropathy, without long-term current use of insulin Assessment & Plan (08/25/2024 10:02 AM EDT): STOP Glipizide A1C 6.0 Continue Metformin Consider SGLT2 if need any additional oral medications Assessment & Plan (03/30/2024 2:21 PM EST): [...] of meds: none noted Assessment & Plan (09/03/2022 9:31 AM EDT): [...] none noted - F/u in 3 months Assessment & Plan (06/07/2022 9:54 AM EDT): [...] meds: none noted - F/u in 3 Assessment & Plan (03/18/2022 5:47 PM EST): [...] none noted - F/u in 3-6 months. Resolved Problems Problem Noted Date Diagnosed Date Resolved Date Influenza A 05/13/2024 08/25/2024 Assessment & Plan (05/13/2024 12:12 PM EST): Drink plenty of fluids and rest Acetaminophen as needed Tamiflu prescribed today for 5 days Obesity 03/18/2022 08/25/2024 Tinea pedis 02/07/2012 08/25/2024 Proteinuria 10/28/2004 08/25/2024 Encounters Date Type Department Care Team Description 10/26/2024 Refill [facility] [address] [place] [phone] Aarti Thacker MD DISH (diffuse idiopathic skeletal hyperostosis) 10/26/2024 Refill [facility] [address] [place] [address] Aarti Thacker MD DISH (diffuse idiopathic skeletal hyperostosis) 09/29/2024 Refill [facility] [address] [place] [phone] Aarti Thacker MD 09/29/2024 Refill [facility] [address] [place] [phone] Aarti Thacker MD DISH (diffuse idiopathic skeletal hyperostosis) 09/16/2024 Refill [facility] [address] [place] [phone] Aarti Thacker MD Type 2 diabetes mellitus with hyperglycemia, without long-term current use of insulin (CMS/HCC) 09/10/2024 Orders Only GENERIC EXTERNAL DATA DEPARTMENT Provider, Generic External Data 09/03/2024 9:30 AM EDT Telemedicine [address] [address] Tyesha Lock RN Long-term current use of opiate analgesic 09/03/2024 Travel 08/31/2024 Refill [facility] [address] [place] [phone] Aarti Thacker MD DISH (diffuse idiopathic skeletal hyperostosis) 08/27/2024 Orders Only [facility] External Provider, [facility] 08/25/2024 Refill [facility] [address] [place] [phone] Aarti Thacker MD DISH (diffuse idiopathic skeletal hyperostosis) 08/23/2024 3:45 PM EDT Office Visit [facility] [address] [place] [phone] Aarti Thacker MD Type 2 diabetes mellitus with diabetic polyneuropathy, without long-term current use of insulin (CMS/HCC) (Primary Dx); DISH (diffuse idiopathic skeletal hyperostosis); Dietary counseling; Exercise counseling; Overweight; Pharyngoesophageal dysphagia; Interstitial lung disease (CMS/HCC); Obstructive sleep apnea; Diabetic polyneuropathy associated with type 2 diabetes mellitus (CMS/HCC); Long-term current use of opiate analgesic; Abdominal pain, unspecified abdominal location; Female stress incontinence; Essential hypertension; Drug-induced acute pancreatitis without infection or necrosis; Adjustment disorder with depressed mood 08/23/2024 Travel 08/20/2024 Telephone [facility] [address], [place] [phone] Aarti Thacker MD chart prep 08/19/2024 Refill [facility] [address] [place] [address] Aarti Thacker MD from Last 3 Months Immunizations Immunization Administration Dates Next Due Hep B, adult [...] Sign Reading Time Taken Comments Blood Pressure 120/78 08/23/2024 4:07 PM EDT Pulse 60 08/23/2024 4:07 PM EDT Temperature 36.9 C (98.4 F) 08/23/2024 4:07 PM EDT Respiratory Rate 16 08/23/2024 4:07 PM EDT Oxygen Saturation 96% 05/28/2024 9:02 AM EST Inhaled Oxygen Concentration - - Weight 69.4 kg (153 lb) 08/23/2024 4:07 PM EDT Height 152.4 cm (5') 08/23/2024 4:07 PM EDT Body Mass Index 29.88 08/23/2024 4:07 PM EDT Plan of Treatment Upcoming Encounters Date Type Department Care Team (Late st Contact Info) Description 12/10/2024 9:00 AM EDT Telemedicine [facility] [address] [place] [phone] Tyesha Lcok, RN Health Maintenance Due Date Last Done Comments CT Colonography 1950 FIT DNA/Cologuard 1950 FIT 1950 FOBT 1950 Sigmoidoscopy 1950 Diabetes: Foot Exam 1962 Eye Exam 1962 Alcohol/Substance Use Screening 1964 Hepatitis A Vaccines (1 of 2 - Risk 2-dose series) 1971 RSV Patients and Patients Aged 60 years or older (1 - Risk 60-74 years 1-dose series) 2012 Zoster Vaccines (2 of 3) 04/03/2015 02/06/2015 DTaP/Tdap/Td Vaccines (2 - Td or Tdap) 04/08/2022 04/08/2012, 11/12/2002 COVID-19 Vaccine ( season) 2024 12/17/2023, 12/24/2021, 02/14/2021, Additional history exists Mammogram 10/15/2024 10/16/2023, 09/21, 08/14/2021, Additional history exists Influenza Vaccine (#1) 2024 , 12/24/2021, 12/30/2018, Additional history exists Diabetes: Hemoglobin A1C 02/22/2025 025, 03/30/2024, 12/01/2023, Additional history exists Depression Monitoring 02/24/2025 08/25/2024, 025 SDOH Screening 08/11/2025 08/11/2024 Tobacco Screening 08/23/2025 08/23/2024 Diabetes: Urine Protein Screening 09/10/2025 09/10/2024, 07/03/2023, 03/26/2021 Lipid Panel 09/10/2025 09/10/2024, 06/22, 03/26/2021 Colonoscopy 12/22/2025 12/22/2020 Colorectal Cancer Screening 12/22/2025 Hepatitis B Vaccines Completed 12/21/2002, 07/16/2002, 06/16/2002 Pneumococcal Vaccine: 50+ Years Completed 12/20/2022, 03/08/2005 Hepatitis C Screening Completed 07/03/2023 HIB Vaccines Aged Out No longer eligi ble based on patient's age to complete this topic HPV Vaccines Aged Out No longer eligi ble based on patient's age to complete this topic IPV Vaccines Aged Out No longer eligi ble based on patient's age to complete this topic Meningococcal B Vaccine Aged Out No l onger eligible based on patient's age to complete [...] PharmJamie Hemoglobin A1c < 7.5 Result Component 6(08/23/2024 4:09 PM EDT) No Genoveva Jones PharmD Procedures Procedure Name Priority Date/Time Associated Diagnosis Comments ALDOLASE Routine 09/10/2024 1:01 PM EDT [id number] ING ENZYME Routine 09/10/2024 1:01 PM EDT ARPIT SCREEN, IFA, W/REFL TITER AND PATTERN Routine 09/10/2024 1:01 PM EDT SCL-70 ANTIBODY Routine 09/10/2024 1:01 PM EDT SJOGREN'S ANTIBODIES (SS-A,SS-B) Routine 09/10/2024 1:01 PM EDT C-REACTIVE PROTEIN Routine 09/10/2024 1: 01 PM EDT DISH (diffuse idiopathic skeletal hyperostosis) SED RATE BY MODIFIED WESTERGREN Routine 09/10/2024 1:01 PM EDT DISH (diffuse idiopathic skeletal hyperostosis) LIPASE Routine 09/10/2024 1:01 PM EDT Drug-induced acute pancreatitis without infection or necrosis LIPID PANEL, STANDARD Routine 09/10/2024 1:01 PM EDT Type 2 diabetes mellitus with diabetic polyneuropathy, without long-term current use of insulin (CMS/HCC) ALBUMIN, RANDOM URINE W/CREATININE Routine 09/10/2024 12:53 PM EDT Type 2 diabetes mellitus with diabetic polyneuropathy, without long-term current use of insulin (CMS/HCC) CT CHEST WO CONTRAST Routine 08/27/2024 1:22 PM EDT POCT GLYCATED HEMOGLOBIN, TOTAL Routine 08/23/2024 4:09 PM EDT Type 2 diabetes mellitus with diabetic polyneuropathy, without long-term current use of insulin (CMS/HCC) POCT GLUCOSE Routine 08/23/2024 4:08 PM EDT Type 2 diabetes mellitus with diabetic polyneuropathy, without long-term current use of insulin (CMS/HCC) BI MAMMOGRAM SCREENING TOMOSYNTHESIS BILATERAL Routine 10/16/2023 9:14 AM EDT HEPATITIS C AB W/REFL TO HCV RNA, QN, PCR Routine 07/03/2023 12:00 PM EDT Type 2 diabetes mellitus with hyperglycemia, without long-term current use of insulin (CMS/HCC) HM COLONOSCOPY Routine 12/22/2020 from Last 3 Months or Most Recently Relevant to Health Maintenance Results * Sjogren's Antibodies (SS-A,SS-B) (09/10/2024 1:01 PM EDT) Sjogren's Antibody (SS-A) <1.0 NEG <1.0 NEG [facility] Sjogren's Antibody (SS-B) <1.0 NEG <1.0 NEG [facility] Comment:THIS TEST WAS PERFOR MED AT:[facility] [place] [phone] COLLAZO MD 09/10/2024 1:01 PM EDT 09/10/2024 1:01 PM EDT us Generic External Data Provider LAB BLOOD ORDERAB LES Final Result Performing Organization Address [facility]/ZIP Co de Phone Number [facility] [address] [place] [phone] * SCL-70 Antibody (09/10/2024 1:01 PM EDT) SCL-70 Antibody <1.0 NEG <1.0 NEG [facility] Comment:THIS TEST WAS PERFOR MED AT:[facility] [place] [phone] COLLAZO MD 09/10/2024 1:01 PM EDT 09/10/2024 1:01 PM EDT us Generic External Data Provider LAB BLOOD ORDERAB LES Final Result Performing Organization Address City/[facility]/ZIP Co de Phone Number [facility] [address] [place] [address] [phone] * Aldolase (09/10/2024 1:01 PM EDT) Aldolase 5.1 <=8.1 U/L [facility] Comment:THIS TEST WAS PERFOR MED AT:[id number] [place] [phone] FERNANDES MD,PHD 09/10/2024 1:01 PM EDT 09/10/2024 1:01 PM EDT us Generic External Data Provider LAB BLOOD ORDERAB LES Final Result Performing Organization Address [facility] Co de Phone Number [facility] [address] [place] [phone] * (ABNORMAL) Sed Rate by Modified Westergren (09/10/2024 1:01 PM EDT) Pathologist [facility] Erythrocyte Sedimentation Rate 29(H) 0 - 20 MM/HR [facility] Comment:Patients with polycy themia and many hemoglobin abnormalitiesmay have depressed sed rates whereas patients with anemiamay have elevated sed rates. Blood Venous blood specimen / Unknown 09/10/2024 1:01 PM EDT 09/10/2024 1:01 PM EDT us Aarti Thacker MD LAB BLOOD ORDERABLES Final Res ult Performing Organization Address [facility]/ZIP Co de Phone Number [facility] [address] [place] [phone] * Angiotensin -1- Converting Enzyme (09/10/2024 1:01 PM EDT) Angiotensin Converting Enzyme 30 9 - 67 U/L [facility] Comment:THIS TEST WAS PERFOR MED AT:[employer] [id number] [place] [address]LRJRLXBLANDEN FERNANDES MD,PHD 09/10/2024 1:01 PM EDT 09/10/2024 1:01 PM EDT us Generic External Data Provider LAB BLOOD ORDERAB LES Final Result Performing Organization Address [facility]/ZIP Co de Phone Number [facility] [address] [place] [phone] * C-reactive Protein (09/10/2024 1:01 PM EDT) C Reactive Protein 0.14 < or = 0.50 mg/dL [facility] Blood Venous blood specimen / Unknown 09/10/2024 1:01 PM EDT 09/10/2024 1:01 PM EDT us Aarti Thacker MD LAB BLOOD ORDERABLES Final Res ult Performing Organization Address [facility] Co de Phone Number [facility] [address] [place] [phone] * ARPIT Screen,IFA, with Reflex to Titer and Pattern (09/10/2024 1:01 PM EDT) Anti Nuclear Antibody Screen NEGATIVE NEGATIVE [facility] Comment:ARPIT IFA is a first l ine screen for detecting thepresence of up to approximately 150 autoantibodies invarious autoimmune diseases. A negative ARPIT IFA resultsuggests an ARPIT-associated autoimmune disease is notpresent at this time, but is not definitive. If thereis high clinical suspicion for Sjogren's syndrome,testing for anti-SS-A/Ro antibody should be considered.Anti-Alesha-1 antibody should be considered for clinicallysuspected inflammatory myopathies.AC-0: NegativeInternational Consensus on ARPIT Patterns(https://doi.org/10.1515/sutq-6107-0091)For additional information, please refer tohttp://education.9+/faq/FTF522(This link is being provided for informational/educational purposes only.)THIS TEST WAS PERFORMED AT:[facility] [place] [phone] COLLAZO MD ARPIT Titer [facility] ARPTI Pattern TNP [facility] ARPIT TITER 2 (REF LAB) [facility] ARPIT Pattern 2 TNP [facility] ARPIT TITER 3 [facility] ARPIT PATTERN 3 [facility] 09/10/2024 1:01 PM EDT 09/10/2024 1:01 PM EDT us Generic External Data Provider LAB BLOOD ORDERAB LES Final Result Performing Organization Address City/[facility]/ZIP Co de Phone Number [facility] [address] [place] [phone] * Lipase (09/10/2024 1:01 PM EDT) Pathologist [facility] Lipase 13 8 - 78 U/L [facility] Blood Venous blood specimen / Unknown 09/10/2024 1:01 PM EDT 09/10/2024 1:01 PM EDT us Aarti Thacker MD LAB BLOOD ORDERABLES Final Res ult Performing Organization Address City/[facility]/ZIP Co de Phone Number [facility] [address] [place] [phone] * (ABNORMAL) Lipid Panel, Standard (09/10/2024 1:01 PM EDT) Triglycerides 126 <150 mg/dL [facility] Comment:Desirable Triglyceri de: less than 150 mg/dLBorderline High Triglyceride 150-199 mg/dLHigh Triglyceride: 200-499 mg/dLVery High Triglyceride: greater than or equal to 5OO mg/dL Cholesterol 193 <200 mg/dL [facility] Comment:Desirable Cholestero l: less than 200 mg/dLBorderline High Cholesterol: 200-239 mg/dLHigh Cholesterol: greater than 239 mg/dL LDL Cholesterol Calculated 107(H) <100 mg/dL [facility] Comment:Desirable LDL: less than 100 mg/dLNear Optimal/Above Optimal LDL: 110- 129 mg/dLBorderline High LDL: 130-159 mg/dLHigh LDL: 160-189 mg/dLVery High LDL: greater than or equal to 190 mg/dL HDL Cholesterol 61 >40 mg/dL [facility] Comment:Desirable HDL: great er than 40 mg/dL Note: This HDL assay may give artificially low results in patients with liver disease. Blood Venous blood specimen / Unknown 09/10/2024 1:01 PM EDT 09/10/2024 1:01 PM EDT Aarit Thacker MD LAB BLOOD ORDERABLES Final Res ult Performing Organization Address [facility] de Phone Number [facility] [address] [place] [phone] * Albumin, Random Urine W/Creatinine (09/10/2024 12:53 PM EDT) Creatinine, Urine 51.38 mg/dL [facility] Microalbumin Urine 10.0 mg/L [facility] Microalbum Creatinine Ratio Ur 19.4 <30 ug/mg cr [facility] Comment:Albumin/Creatinine R atio Reference Ranges: Normal: < 30 ug/mg creatinine Microalbuminuria: 30 - 300 ug/mg creatinineClinical Albuminuria: > 300 ug/mg creatinine Urine (Urine, Random) 09/10/2024 12:53 PM EDT 09/10/2024 1:16 PM EDT Aarti Thacker MD LAB URINE ORDERABLES Final Res ult Performing Organization Address [facility] Co de Phone Number [facility] [address] [place] [phone] * CT Chest w/o Contrast (08/27/2024 1:22 PM EDT) Anatomical Region Laterality Modality Body, Chest Computed Tomogra phy 08/27/2024 1:22 PM EDT Narrative 08/27/2024 4:34 PM EDT [address] [address] [address] Scan Report Signed Patient: Snehal Ryan MR#: [id number] : 1950 Acct:[id number] Age/Sex: 74 / F ADM Date: 08/27/24 Loc: HO.CT Attending Dr: Van Hill MD Ordering Physician: Van Hill MD Date of Service: 08/27/24 Procedure(s): CT chest wo IV con Accession Number(s): [id number] cc: Aarti Thacker; Van Hill MD Report Number: [id number]: Total DLP = 136.00 mGy-cm EXAMINATION: CT CHEST WITHOUT CONTRAST CLINICAL INFORMATION: Interstitial pulmonary disease COMPARISON: June 23, 2023 TECHNIQUE: Multidetector volumetric CT imaging of the chest was done. Axial MIP volume rendering provided. Sagittal and coronal reformatted images were obtained. This CT examination was performed using dose optimization techniques as appropriate, variously including the following: *Automated exposure control *Adjustment of mA and/or kV according to patient size (this includes techniques or standardized protocols for targeted exams where dose is matched to indication/reason for exam; i.e. extremities or head) *Use of iterative reconstruction technique DLP: 136 mGY*cm FINDINGS: LUNGS: There is lobulated varicose type bronchiectasis in the right lower lobe greater than the left lower lobe. There is possible cystic type bronchiectasis involving the lateral segment right middle lobe bronchus versus pulmonary cyst or bulla. Coarse reticular densities are noted in the periphery of the right greater than left lung and groundglass densities that are slightly more prominent than on prior. MEDIASTINUM: Heart size is within normal limits. There is desiccation of the mitral annulus and aortic valve. Shotty mediastinal or hilar nodes are present CORONARY ARTERY CALCIFICATION: Present PLEURA: There is no pleural effusion or pleural thickening. AXILLA: No lymphadenopathy. UPPER ABDOMEN: The gallbladder is surgically absent. There is extra hepatic biliary ductal dilation. OSSEOUS STRUCTURES: Flowing anterior osteophytes are present in the thoracic spine with disc space narrowing and calcification. Calcific lesions are present adjacent the greater tuberosity of the right humerus in the soft tissues most consistent with calcific tendinitis CT/CT chest wo IV con IMPRESSION: Mild progression of chronic interstitial disease with subtle increased prominence of peripheral reticular and groundglass densities. There is also mild varicose type bronchiectasis in the right lower lobe and more cylindrical type in the left lower lobe. There is possible cystic bronchiectasis in the lateral segment right middle lobe bronchus versus pulmonary cysts. Calcific tendinitis, rotator cuff Coronary artery calcific lesions Fleischner guidelines were followed. Electronically signed by: David Cutler MD 08/27/2024 04:31 PM EDT RP Dictated By: David Cutler MD Signed By: <Electronically signed by David Cutler MD in OV> 08/27/24 1631 DD/ 1322 TD/TT: 08/27/24 1438 Clothing Manager: Procedure Note Donotuseinterpreter, Image - 08/27/[address] [place] [id number] [address] Scan Report Signed Patient: Snehal Ryan LMR#: [id number] : 1950cct:[id number] Age/Sex: 74 / FADM Date: 08/27/24 Loc: HO.CT Attending Dr: Van Hill MD Ordering Physician: Van Hill MD Date of Service: 08/27/24 Procedure(s): CT chest wo IV con Accession Number(s): [id number] cc: Aarti Thacker; Van Hill MD Report Number: [id number]: Total DLP = 136.00 mGy-cm EXAMINATION: CT CHEST WITHOUT CONTRAST CLINICAL INFORMATION: Interstitial pulmonary disease COMPARISON: June 23, 2023 TECHNIQUE: Multidetector volumetric CT imaging of the chest was done. Axial MIP volume rendering provided. Sagittal and coronal reformatted images were obtained. This CT examination was performed using dose optimization techniques as appropriate, variously including the following: *Automated exposure control *Adjustment of mA and/or kV according to patient size (this includes techniques or standardized protocols for targeted exams where dose is matched to indication/reason for exam; i.e. extremities or head) *Use of iterative reconstruction technique DLP: 136 mGY*cm FINDINGS: LUNGS: There is lobulated varicose type bronchiectasis in the right lower lobe greater than the left lower lobe. There is possible cystic type bronchiectasis involving the lateral segment right middle lobe bronchus versus pulmonary cyst or bulla. Coarse reticular densities are noted in the periphery of the right greater than left lung and groundglass densities that are slightly more prominent than on prior. MEDIASTINUM: Heart size is within normal limits. There is desiccation of the mitral annulus and aortic valve. Shotty mediastinal or hilar nodes are present CORONARY ARTERY CALCIFICATION: Present PLEURA: There is no pleural effusion or pleural thickening. AXILLA: No lymphadenopathy. UPPER ABDOMEN: The gallbladder is surgically absent. There is extra hepatic biliary ductal dilation. OSSEOUS STRUCTURES: Flowing anterior osteophytes are present in the thoracic spine with disc space narrowing and calcification. Calcific lesions are present adjacent the greater tuberosity of the right humerus in the soft tissues most consistent with calcific tendinitis CT/CT chest wo IV con IMPRESSION: Mild progression of chronic interstitial disease with subtle increased prominence of peripheral reticular and groundglass densities. There is also mild varicose type bronchiectasis in the right lower lobe and more cylindrical type in the left lower lobe. There is possible cystic bronchiectasis in the lateral segment right middle lobe bronchus versus pulmonary cysts. Calcific tendinitis, rotator cuff Coronary artery calcific lesions Fleischner guidelines were followed. Electronically signed by: David Cutler MD 08/27/2024 04:31 PM EDT Dictated By: David Cutler MD Signed By: <Electronically signed by David Cutler MD in OV> 08/27/24 1631 DD/ 1322 TD/TT: 08/27/24 1438 Clothing Manager: [facility] External Provider IMG CT PROCEDURES Final Result * POCT HGB A1C (08/23/2024 4:09 PM EDT) Hemoglobin A1C 6.0 4.0 - 6.0 % Blood 08/23/2024 4:09 PM EDT Aarti Thacker MD POINT OF CARE TEST ENTER/EDIT ORDERABLES Final Result * POCT Glucose (08/23/2024 4:08 PM EDT) Glucose Blood, POC 101 60 - 200 mg/dL Blood Capillary blood specimen / Unknown 08/23/2024 4:08 PM EDT Aarti Thacker MD POINT OF CARE TEST ENTER/EDIT ORDERABLES Final Result * BI Mammogram Screening Tomosynthesis Bilateral (10/16/2023 9:14 AM EDT) Anatomical Region Laterality Modality Breast Bilateral Mammography 10/16/2023 9:14 AM EDT Narrative 11/05/2023 9:00 PM EDT [facility] [address] [place], [place] [address] Mammography Report Signed Patient: Snehal Ryan MR#: [id number] : 1950 Acct:[id number] Age/Sex: 73 / F ADM Date: 10/16/23 Loc: HO.MAMMO Attending Dr: Aarti Thacker MD Ordering Physician: Aarti Thacker Results: 1Negative Date of Service: 10/16/23 Follow Up: 1 Year From Orig ina Mammogram Procedure(s): MM tomosynthesis screening BI Accession Number(s): [id number] cc: Aarti Thacker EXAMINATION: MM SCREENING DIGITAL [...] MD in OV> 11/05/232056 DD/ 3 TD/TT: Clothing Manager: Procedure Note Donotuseinterpreter, Image - [facility]/05/[facility] [address] [place] [address] Mammography Report Signed Patient: Snehal Ryan LMR#: [id number] : 3Acct:[id number] Age/Sex: 73 / FADM Date: 10/16/23 Loc: NIKIA Attending Dr: Aarti Thacker MD Ordering Physician: Mercy Thackerults: 1Negative Date of Service: 10/16/23Follow Up: 1 Year From Orig inal Mammogram Procedure(s): MM tomosynthesis screening BI Accession Number(s): [id number] cc: Aarti Thacker EXAMINATION: MM SCREENING DIGITAL [...] Alicia Alva MD in OV> 11/05/232056 DD/ 0914 TD/TT: Clothing Manager: Aarti Thacker MD IMG BI PROCEDURES Final Result * Hepatitis C Antibody with Reflex to HCV, RNA, Quantitative, Real-Time PCR (07/03/2023 12:00 PM EDT) Hepatitis C Antibody Nonreactive Nonreactive [facility] Comment:Antibodies to HCV no t detected; does not exclude early acuteHCV infection. Blood Venous blood specimen / Unknown 07/03/2023 12:00 PM EDT 07/03/2023 1:16 PM EDT Aarti Thacker MD LAB BLOOD ORDERABLES Final Res ult [facility] [address] [place] [address] [phone] * (ABNORMAL) Colonoscopy (12/22/2020) Colonoscopy Abnormal(A ) Normal Historical Provider HEALTH MAINTENANCE Edited Result - Final from Last 3 Months or Most Recently Relevant to Health Maintenance Insurance [facility] ALF OPTIONS (O D-SNP) [place] [id number] Care Teams Pain Management Physician Relationship Specialty Start Date End Date Aarti Thacker MD [address] [place] [phone] PCP - General Family Medicine 02/04/20
--- OUTSIDE RECORDS SUMMARY | 2024-11-16 10:43 | XMS_ITS | Encounter Summary ---
Author Organization [employer] Address [address] [facility] 7t [place] [address] Care Team Providers Care Manager Enterprise Content Management Name Role Phone Aarti Thacker MD Primary Care Provider [phone] Reason for Visit * Reason Comments Med Refill Encounter Details Date Type Department Care Team (Late st Contact Info) Description 06/11/2022 Refill [facility] [address] [place] [address] [phone] Aarti Thacker MD [address] [place] [address] [phone] Other chronic pain Social History Tobacco Use [...] Info) Description 12/10/2024 9:00 AM EDT Telemedicine [facility] [address] [place] [address] Tyesha Lock, RN documented as of this encounter Visit Diagnoses Diagnosis Other chronic pain documented in this encounter Care Teams Manager Enterprise Content Management Relationship Specialty Start Date End Date Aarti Thacker MD [address] [place] [address] PCP - General Family Medicine 02/04/20 documented as of this encounter
--- OUTSIDE RECORDS SUMMARY | 2024-11-16 10:43 | XMS_ITS | Encounter Summary ---
Author Organization [employer] Address [address] [facility] [address]t [place] [address] Care Team Providers Care Heel Trimmer Name Role Phone Aarti Thacker MD Primary Care Provider [phone] Reason for Visit * Reason Onset Date Comments Hospital Follow-up 03/11/2024 Encounter Details Date Type Department Care Team ([facility] st Contact Info) Description 03/11/2024 Telephone [facility] [address] [place], [place] [phone] Aarti Thacker MD [address] [place], [place] [phone] Hospital Follow-up Social History Tobacco Use Types [...] from pt requesting a HDF appt. Hospital: [facility] Date of admission: 03/04/24 Discharge date: 03/09/24 Diagnosed: Pancarditis *Send message to [place] Clinical Care Coordinators documented in this encounter Plan of Treatment Upcoming Encounters Date Type Department Care Team (Late st Contact Info) Description 12/10/2024 9:00 AM EDT Telemedicine [facility] [address] [place] [phone] Tyesha Lock, RN documented as of this encounter Goals Goal Patient Goal Type Associated Problems Recent Progress Patient-Stated? Author Patient will adhere to medication regimen General No Yossis-Genoveva Keller, PharmD Hemoglobin A1c < 7.5 Result Component 6(08/23/2024 4:09 PM EDT) No Yossis-GambGenoveva martínez, PharmD documented as of this encounter Visit Diagnoses Not on filedocumented in this encounter Additional Health Concerns Assessment Noted Time PHQ-9 Depression Total Score: 0 07/03/19 24 10:52 AM EDT documented as of this encounter Care Teams Heel Trimmer Relationship Specialty Start Date End Date Aarti Thacker MD [address] [place] [address] PCP - General Family Medicine 02/04/20 documented as of this encounter
== END 2024-11-16 10:47 | disposition home or self-care (01) ==
LOC: HO.HPS 10:01
PROVIDERS: PCP General Practice; Visit Provider Hospitalist
DX: I27.21 Secondary pulmonary arterial hypertension (principal); J41.0 Simple chronic bronchitis; J84.9 Interstitial pulmonary disease, unspecified; J98.4 Other disorders of lung
CPT/HCPCS: 99215; G2211

== ENCOUNTER → 2024-11-16 10:00 | Outpatient (BNVA) | payer OTHER, SELFPAY | PROVIDERS: PCP General Practice; Visit Provider Hospitalist | DX: I27.21 Secondary pulmonary arterial hypertension (principal); J84.9 Interstitial pulmonary disease, unspecified; J41.0 Simple chronic bronchitis; J98.4 Other disorders of lung | CPT/HCPCS: 99212 ==

== ENCOUNTER 2024-12-16 08:15 | Outpatient (REF) | payer OTHER, SELFPAY ==
--- NOTE | ~2024-12-16 | FL_ITS ---
EXAMINATION: XR BARIUM SWALLOW CLINICAL INFORMATION: Pain with swallowing COMPARISON: None available. TECHNIQUE: Routine barium swallow was performed in upright view with thick barium and barium coated saltine crackers and thin barium in prone lying position. FINDINGS: Following oral administration of thick barium in upright view in different positions there is normal propagation bolus from the oral cavity through the pharynx, esophagus into stomach without laryngeal penetration and aspiration. Occasional tertiary peristalsis was seen in the distal esophagus but no obstruction seen. The GE junction is widely patent. On oral administration of barium coated saltine crackers is normal oral mastication with propagation bolus from the oral cavity through the pharynx, esophagus into stomach without obstruction, narrowing or stricture. FLUOROSCOPY TIME: 2 minute 12 seconds DOSE AREA PRODUCT: 43.24 uGy-m2 (microgray-meter squared) FL/FL barium swallow IMPRESSION: Occasional tertiary peristalsis in the distal esophagus suggestive of presbyesophagus. No obstructive or constrictive lesion seen especially in left pharynx or upper esophagus where patient complains of pain. Electronically signed by: Raoul Perez MD 12/16/2024 11:10 AM EDT
--- OUTSIDE RECORDS SUMMARY | 2024-12-16 08:39 | XMS_ITS | Encounter Summary ---
Author Organization [employer] Address [address] [facility] 7t [place] [address] Care Team Providers Care Excavating Supervisor Name Role Phone Aarti Thacker MD Primary Care Provider [phone] Reason for Visit * Reason Onset Date Comments Hospital Follow-up 03/11/2024 Encounter Details Date Type Department Care Team ([facility] st Contact Info) Description 03/11/2024 Telephone [facility] [address] [place], [place] [phone] Aarti Thacker MD [address] [place], [place] [phone] Hospital Follow-up Social History Tobacco Use Types [...] from pt requesting a HDF appt. Hospital: [facility] Date of admission: 03/04/24 Discharge date: 03/09/24 Diagnosed: Pancarditis *Send message to [place] Clinical Care Coordinators documented in this encounter Plan of Treatment Upcoming Encounters Date Type Department Care Team (Late st Contact Info) Description 01/21/2025 3:30 PM EDT Office Visit [facility] [address] [place] [phone] Aarti Thacker MD [address] [place] [address] 03/04/2025 10:00 AM EST Telemedicine [facility] [address] [place] [phone] Tyesha Lock RN documented as of this [...] documented as of this encounter Care Teams Excavating Supervisor Relationship Specialty Start Date End Date Aarti Thacker MD [address] [place] [phone] PCP - General Family Medicine 02/04/20 documented as of this encounter
--- OUTSIDE RECORDS SUMMARY | 2024-12-16 08:39 | XMS_ITS | Encounter Summary ---
Author Organization [employer] Address [address] [facility] [address] [place] [address] Care Team Providers Care Grinder Set Up Operator Internal Name Role Phone Aarti Thacker MD Primary Care Provider [phone] Encounter Details Date Type Department Care Team ([facility] st Contact Info) Description 04/05/2024 Telephone [facility] [address] [place], [place] [phone] Aarti Thacker MD [address] [place], [place] [phone] Social History Tobacco Use Types Packs/Day Years [...] Description 01/21/2025 3:30 PM EDT Office Visit [facility] [address] [place] [phone] Aarti Thacker MD [address] [place] [phone] 03/04/2025 10:00 AM EST Telemedicine [facility] [address] [place] [phone] Tyesha Lock, RN documented as of this encounter Goals Goal Patient Goal Type Associated Problems Recent Progress Patient-Stated? Author Patient will adhere to medication regimen General No Piers-Gambl e, Genoveva, PharmD Hemoglobin A1c < 7.5 Result Component 6(08/23/2024 4:09 PM EDT) No Piers-Gambl eElenasa, PharmD documented as of this encounter Visit Diagnoses Not on filedocumented in this encounter Additional Health Concerns Assessment Noted Time PHQ-9 Depression Total Score: 0 07/03/19 24 10:52 AM EDT documented as of this encounter Care Teams Grinder Set Up Operator Internal Relationship Specialty Start Date End Date Aarti Thacker MD [address] [place] [address] PCP - General Family Medicine 02/04/20 documented as of this encounter
--- OUTSIDE RECORDS SUMMARY | 2024-12-16 08:39 | XMS_ITS | Encounter Summary ---
Author Organization [employer] Address [address] [facility] 7[address] [place] [address] Care Team Providers Care Linux Network Engineer Name Role Phone Aarti Thacker MD Primary Care Provider [phone] Reason for Visit * Reason Comments Med Refill Encounter Details Date Type Department Care Team ([facility] st Contact Info) Description 11/14/2023 Refill [facility] [address] [place], [place] [phone] Aarti Thacker MD [address] [place], [place] [phone] Social History Tobacco Use Types Packs/Day Years [...] Description 01/21/2025 3:30 PM EDT Office Visit [facility] [address] [place] [phone] Aarti Thacker MD [address] [place] [phone] 03/04/2025 10:00 AM EST Telemedicine [facility] [address] [place] [phone] Tyesha Lock, RASHAUN documented as of this encounter Goals Goal Patient Goal Type Associated Problems Recent Progress Patient-Stated? Author Patient will adhere to medication regimen General No Neto-Genoveva Keller, PharmD Hemoglobin A1c < 7.5 Result Component 6(08/23/2024 4:09 PM EDT) No YossisGenoveva Polo, PharmD documented as of this encounter Visit Diagnoses Not on filedocumented in this encounter Additional Health Concerns Assessment Noted Time PHQ-9 Depression Total Score: 0 07/03/19 24 10:52 AM EDT documented as of this encounter Care Teams Linux Network Engineer Relationship Specialty Start Date End Date Aarti Thacker MD [address] [place] [phone] PCP - General Family Medicine 02/04/20 documented as of this encounter
--- OUTSIDE RECORDS SUMMARY | 2024-12-16 08:39 | XMS_ITS | Clinical Summary ---
Author Organization [employer] Address [address] [facility] 7t [place] [address] Care Team Providers Care Admitting Counselor Name Role Phone Aarti Thacker MD Primary Care Provider [phone] Allergies Active Allergy Reactions Criticality Noted Date [...] 2 times daily. 1 each 023 Active Myrbetriq 25 MG 24 hr tablet Take 25 mg by mouth in the morning. 023 Active metoprolol succinate XL (Toprol-XL) 100 MG 24 hr tablet TAKE 1 AND 1/2 TABLETS BY MOUTH IN THE MORNING 023 Active pancrelipase, Qtt-Ujzt-Pven, (Creon) 79854-26420 units capsule Take 2 capsules by mouth 2 times daily. Active aspirin (Aspirin Low Dose) 81 MG EC tablet TAKE 1 TABLET BY MOUTH EVERY EVENING 90 tablet 3 024 Active amLODIPine (Norvasc) 10 MG tabletIndications :Essential (primary) hypertension TAKE 1 TABLET BY MOUTH EVERY MORNING 90 tablet 3 025 Active TRUEplus Lancets 33G miscIndications:T ype 2 diabetes mellitus with hyperglycemia, without long-term current use of insulin ([facility]) USE TO TEST BLOOD SUGAR TWICE DAILY 100 each 11 Active FREESTYLE LITE test stripIndications: Type 2 diabetes mellitus with hyperglycemia, without long-term current use of insulin ([facility]) USE TO TEST BLOOD SUGAR TWICE DAILY 100 strip Active melatonin 5 MG tablet TAKE 2 TABLETS BY MOUTH EVERY DAY AT BEDTIME 180 tablet 1 025 Active metFORMIN XR (Glucophage-XR) 500 MG 24 hr tabletIndications :Type 2 diabetes mellitus with diabetic polyneuropathy, without long-term current use of insulin ([facility]) Take 1 tablet (500 mg) by mouth 2 times daily. 180 tablet 3 025 Active albuterol 108 (90 Base) MCG/ACT inhalerIndication s:Interstitial lung disease ([facility]) Inhale 2 puffs every 4 (four) hours if needed for wheezing. 18 g 025 2025 Active D3 Super Strength 50 [...] for severe pain. 84 tablet 025 Active cyanocobalamin (Vitamin B-12) 1000 MCG tablet TAKE 1 TABLET BY MOUTH EVERYDAY AT NOON 90 tablet 3 025 Active gabapentin (Neurontin) 100 MG capsuleIndication s:Diabetic polyneuropathy associated with type 2 diabetes mellitus ([facility]) TAKE 2 CAPSULES BY MOUTH TWICE DAILY IN THE MORNING AND AT BEDTIME 120 capsule 11 025 Active naloxone (Narcan) 4 mg/0.1 mL nasal sprayIndications: Chronic pain syndrome Administer 1 spray (4 mg) into affected nostril(s) if needed for opioid reversal. In 1 nostril, may repeat dose every 2-3 minutes as needed alternating nostrils with each dose 2 each 2 025 Active naloxone (Narcan) 4 mg/0.1 mL nasal sprayIndications: Chronic pain syndrome Administer 1 spray (4 mg) into affected nostril(s) if needed for opioid reversal. In 1 nostril, may repeat dose every 2-3 minutes as needed alternating nostrils with each dose 2 each 2 023 2024 Discontinued(R eorder (will not trigger notification to Pharmacy)) cyanocobalamin (Vitamin B-12) 1000 MCG tablet TAKE 1 TABLET BY MOUTH EVERY MORNING 90 tablet 3 024 2024 Discontinued gabapentin (Neurontin) 100 MG capsuleIndication s:Diabetic polyneuropathy associated with type 2 diabetes mellitus (CMS/HCC) Take 2 capsules (200 mg) by mouth 2 times daily. 120 capsule 11 024 2024 Discontinued oxyCODONE-acetami nophen (Percocet) 5-325 MG tabletIndications :DISH (diffuse idiopathic skeletal hyperostosis) Take 1 tablet by mouth every 8 (eight) hours if needed for severe pain. Do not start before October 28, 2024. 84 tablet 025 2024 Discontinued(R eorder (will not trigger notification to Pharmacy)) Active Problems Problem Noted Date Diagnosed Date Overweight 08/25/2024 Pharyngoesophageal dysphagia 08/25/2024 Long-term current use of opiate analgesic 2024 Overview (08/25/2024): Dx: DISH Rx: Percocet 5/325mg TID Last FRONT END ASSISTANT agreement: Tier II (visit every 3 months) [...] EDT): On Percocet 5/325 three times daily FRONT END ASSISTANT agreement in place and pt understands risks and benefits of medication Feels back pain is worsening, and radiating into hip and down leg Will obtain DEXA (age > 65, post menopause, and assistant terminal manager steroid use) and disposition to rheum/ortho after [...] Encounters Date Type Department Care Team Description 12/10/2024 9:00 AM EDT Telemedicine [facility] [address] [place] [address] Tyesha Lock RN Long-term current use of opiate analgesic 12/10/2024 Refill [facility] [address] [place] [address] Tyesha Lock RN Chronic pain syndrome 12/10/2024 Travel 12/09/2024 Refill [facility] [address] [place] [address] Aarti Thacker MD Diabetic polyneuropathy associated with type 2 diabetes mellitus ([facility]) 11/28/2024 Refill [facility] [address] [place] [address] Aarti Thacker MD 11/25/2024 Refill [facility] [address] [place] [address] Aarti Thacker MD DISH (diffuse idiopathic skeletal hyperostosis) 10/26/2024 Refill [facility] [address] [place] [address] Aarti Thacker MD DISH (diffuse idiopathic skeletal hyperostosis) 10/26/2024 Refill [facility] [address] [place] [address] Aarti Thacker MD DISH (diffuse idiopathic skeletal hyperostosis) 09/29/2024 Refill [facility] [address] [place] [address] Aarti Thacker MD 09/29/2024 Refill [facility] [address] [place] [address] Aarti Thacker MD DISH (diffuse idiopathic skeletal hyperostosis) 09/16/2024 Refill [facility] [address] [place] [address] Aarti Thacker MD Type 2 diabetes mellitus with hyperglycemia, without long-term current use of insulin ([facility]) from Last 3 Months Immunizations Immunization Administration [...] Description 01/21/2025 3:30 PM EDT Office Visit [facility] [address] [place] [address] [phone] Aarti Thacker MD [address] [place] [phone] 03/04/2025 10:00 AM EST Telemedicine [address] [address] Tyesha Lock, RN Health Maintenance Due Date Last Done Comments CT Colonography 1950 FIT DNA/Cologuard 1950 FIT 1950 FOBT 1950 Sigmoidoscopy 1950 Diabetes: Foot Exam 1962 Eye Exam 1962 Alcohol/Substance Use Screening 1964 Hepatitis A Vaccines (1 of 2 - Risk 2-dose series) 1971 Zoster Vaccines (2 of 3) 04/03/2015 02/06/2015 DTaP/Tdap/Td Vaccines (2 - Td or Tdap) 04/08/2022 04/08/2012, 11/12/2002 Mammogram 10/15/2024 10/16/2023, 09/21, 08/14/2021, Additional history exists COVID-19 Vaccine ( season) 2024 12/17/2023, 12/24/2021, 02/14/2021, Additional history exists Diabetes: Hemoglobin A1C 02/22/2025 [...] C Screening Completed 07/03/2023 Influenza Vaccine Completed 11/16/2024, , 12/24/2021, Additional history exists RSV Patients and Patients Aged 60 years or older Completed 11/16/2024 HIB Vaccines Aged Out No longer eligi [...] Procedure Name Priority Date/Time Associated Diagnosis Comments LIPID PANEL, STANDARD Routine 09/10/2024 1:01 PM EDT Type 2 diabetes mellitus with diabetic polyneuropathy, without long-term current use of insulin ([facility]/HCC) ALBUMIN, RANDOM URINE W/CREATININE Routine 09/10/2024 12:53 PM EDT Type 2 diabetes mellitus with diabetic polyneuropathy, without long-term current use of insulin (CMS/HCC) POCT GLYCATED HEMOGLOBIN, TOTAL Routine 08/23/2024 4:09 [...] Relevant to Health Maintenance Results * (ABNORMAL) Lipid Panel, Standard (09/10/2024 1:01 PM EDT) Triglycerides 126 <150 mg/dL [facility] Comment:Desirable Triglyceri de: less than 150 mg/dLBorderline High Triglyceride 150-199 mg/dLHigh Triglyceride: 200-499 mg/dLVery High Triglyceride: greater than or equal to 5OO mg/dL Cholesterol 193 <200 mg/dL [facility] Comment:Desirable Cholestero l: less than 200 mg/dLBorderline High Cholesterol: 200-239 mg/dLHigh Cholesterol: greater than 239 mg/dL LDL Cholesterol Calculated 107(H) <100 mg/dL [facility] Comment:Desirable LDL: less than 100 mg/dLNear Optimal/Above Optimal LDL: 110- 129 mg/dLBorderline High LDL: 130-159 mg/dLHigh LDL: 160-189 mg/dLVery High LDL: greater than or equal to 190 mg/dL HDL Cholesterol 61 >40 mg/dL [facility] Comment:Desirable HDL: great er than 40 mg/dL Note: This HDL assay may give artificially low results in patients with liver disease. Blood Venous blood specimen / Unknown 09/10/2024 1:01 PM EDT 09/10/2024 1:01 PM EDT Aarti Thacker MD LAB BLOOD ORDERABLES Final Res ult Performing Organization Address [facility] Co de Phone Number [facility] [address] [place] [phone] * Albumin, Random Urine W/Creatinine (09/10/2024 12:53 PM EDT) Creatinine, Urine 51.38 mg/dL [facility] Microalbumin Urine 10.0 mg/L [facility] Microalbum Creatinine Ratio Ur 19.4 <30 ug/mg cr [facility] Comment:Albumin/Creatinine R atio Reference Ranges: Normal: < 30 ug/mg creatinine Microalbuminuria: 30 - 300 ug/mg creatinineClinical Albuminuria: > 300 ug/mg creatinine Urine (Urine, Random) 09/10/2024 12:53 PM EDT 09/10/2024 1:16 PM EDT Aarti Thacker MD LAB URINE ORDERABLES Final Res ult Performing Organization Address [facility] Co de Phone Number [facility] [address] [place] [phone] * POCT HGB A1C (08/23/2024 4:09 PM EDT) Hemoglobin A1C 6.0 4.0 - 6.0 % Blood 08/23/2024 4:09 PM EDT Result [facility] Aarti Thacker MD POINT OF CARE TEST ENTER/EDIT ORDERABLES Final Result * BI Mammogram Screening Tomosynthesis Bilateral (10/16/2023 9:14 AM EDT) Anatomical Region Laterality Modality Breast Bilateral Mammography 10/16/2023 9:14 AM EDT Narrative 11/05/2023 9:00 PM EDT [address] [place] [address] Mammography Report Signed Patient: Snehal Ryan MR#: [id number] : 1950 Acct:[id number] Age/Sex: 73 / F ADM Date: 10/16/23 Loc: HO.MAMMO Attending Dr: Aarti Thacker MD Ordering Physician: Aarti Thacker Results: 1Negative Date of Service: 10/16/23 Follow Up: 1 Year From Orig inal Mammogram Procedure(s): MM tomosynthesis screening BI Accession Number(s): [id number] cc: Aarti Thacker EXAMINATION: MM SCREENING DIGITAL [...] MD in OV> 11/05/232056 DD/ 3 TD/TT: Specialty Sales Consultant: Procedure Note Donotuseinterpreter, Image - 11/05/[address] [place] [address] Mammography Report Signed Patient: Snehal Ryan LMR#: [id number] : 1950cct:[id number] Age/Sex: 73 / FADM Date: 10/16/23 Loc: HO.MAMMO Attending Dr: Aarti Thacker MD Ordering Physician: Mercy Thackerults: 1Negative Date of Service: 10/16/23Follow Up: 1 Year From Orig ina Mammogram Procedure(s): MM tomosynthesis screening BI Accession Number(s): [id number] cc: Aarti Thacker EXAMINATION: MM SCREENING DIGITAL [...] MD in OV> 11/05/232056 DD/ 3 TD/TT: Specialty Sales Consultant: Aarti Thacker MD IM BI PROCEDURES Final Result * Hepatitis C Antibody with Reflex to HCV, RNA, Quantitative, Real-Time PCR (07/03/2023 12:00 PM EDT) Hepatitis C Antibody Nonreactive Nonreactive [facility] Comment:Antibodies to HCV no t detected; does not exclude early acuteHCV infection. Blood Venous blood specimen / Unknown 07/03/2023 12:00 PM EDT 07/03/2023 1:16 PM EDT Aarti Thacker MD LAB BLOOD ORDERABLES Final Res ult [facility] [address] [place] [phone] * (ABNORMAL) Colonoscopy (12/22/2020) Colonoscopy Abnormal(A ) Normal Historical Provider HEALTH MAINTENANCE Edited Result - Final from Last 3 Months or Most Recently Relevant to Health Maintenance [facility]O D-SNP) VLAD BROOKS [id number] Care Teams Admitting Counselor Relationship Specialty Start Date End Date Aarti Thacker MD [address] [place] [phone] PCP - General Family Medicine 02/04/20
--- OUTSIDE RECORDS SUMMARY | 2024-12-16 08:39 | XMS_ITS | Encounter Summary ---
Author Organization [employer] Address [address] [facility] 7t [place] [address] Care Team Providers Care Window/Distribution Clerk Name Role Phone Aarti Thacker MD Primary Care Provider [phone] Reason for Visit * Reason Comments Med Refill Encounter Details Date Type Department Care Team (Late st Contact Info) Description 08/25/2024 Refill [facility] [address] [place], [place] [phone] Aarti Thacker MD [address] [place], [place] [phone] DISH (diffuse idiopathic skeletal hyperostosis) Social History [...] the past 12 months, has t he [employer] oil or water [employer] threatened to shut off services in your [...] 9:45 AM MYRIAMT Aarti Caba MD * Feeling tired or [...] Description 01/21/2025 3:30 PM EDT Office Visit [facility] [address] [place] [phone] Aarti Thacker MD [address] [place] [phone] 03/04/2025 10:00 AM EST Telemedicine [facility] [address] [place] [phone] Tyesha Lock RN documented as of this [...] documented as of this encounter Care Teams Window/Distribution Clerk Relationship Specialty Start Date End Date Aarti Thacker MD [address] [place] [address] PCP - General Family Medicine 02/04/20 documented as of this encounter
--- OUTSIDE RECORDS SUMMARY | 2024-12-16 08:39 | XMS_ITS | Encounter Summary ---
Author Organization [employer] Address [address] [facility] 7t [place] [address] Care Team Providers Care Tool Crib Clerk Name Role Phone Aarti Thacker MD Primary Care Provider [phone] Reason for Visit * Reason Comments Med Refill Encounter Details Date Type Department Care Team (Late st Contact Info) Description 10/20/2022 Refill [facility] [address] [place] [phone] Cristina Mcginnis FNP [address] [place], [place] [phone] Social History Tobacco Use Types Packs/Day Years [...] Description 01/21/2025 3:30 PM EDT Office Visit [facility] [address] [place] [phone] Aarti Thacker MD [address] [place] [address] [phone] 03/04/2025 10:00 AM EST Telemedicine [facility] [address] [place] [address] Tyesha Lock, RASHAUN documented as of this encounter Visit Diagnoses Not on filedocumented in this encounter Care Teams Tool Crib Clerk Relationship Specialty Start Date End Date Aarti Thacker MD [address] [place] [address] PCP - General Family Medicine 02/04/20 documented as of this encounter
--- OUTSIDE RECORDS SUMMARY | 2024-12-16 08:39 | XMS_ITS | Encounter Summary ---
Author Organization [employer] Address [address] [facility] 7t [place] [address] Care Team Providers Care Ice Skating Teacher Name Role Phone Aarti Thacker MD Primary Care Provider [phone] Encounter Details Date Type Department Care Team (Late st Contact Info) Description 11/19/2022 Abstract [facility] [address] [place] [address] [phone] Aarti Thacker MD [address] [place] [address] [phone] Social History Tobacco Use Types Packs/Day Years [...] 3:30 PM EDT Office Visit [facility] [address] [place] [address] [phone] Aarti Thacker MD [address] [place] [address] [phone] 03/04/2025 10:00 AM EST Telemedicine [facility] [address] [place] [address] Tyesha Lock, RASHAUN documented as of this encounter Visit Diagnoses Not on filedocumented in this encounter Care Teams Ice Skating Teacher Relationship Specialty Start Date End Date Aarti Thacker MD [address] [place] [address] PCP - General Family Medicine 02/04/20 documented as of this encounter
--- OUTSIDE RECORDS SUMMARY | 2024-12-16 08:40 | XMS_ITS ---
Author Organization [employer] [facility] Address [address] [place] [address] 7 [place] [address] Care Team Providers Care Accounts Receivable Administrator Name Role Phone Aarti Thacker MD Primary Care Provider WHARF TENDER Status:Enrolled (Active) Start date:05/07/2022 Enrollment date:05/07/2022 Enrollment reason:Identified using pharmacy data Current support & services provided:Tier 4 (WHARF TENDER) Case Team Name Relationship Phone Tyesha Lock RN(Responsible Staff) Registered Nu rselizabeth Continued Care and Services Coordination
--- OUTSIDE RECORDS SUMMARY | 2024-12-16 08:40 | XMS_ITS | Encounter Summary ---
Author Organization [employer] Address [address] [facility] 7t [place] [address] Care Team Providers Care Country Printer Name Role Phone Aarti Thacker MD Primary Care Provider [phone] Reason for Visit * Reason Comments Med Refill Encounter Details Date Type Department Care Team (Late st Contact Info) Description 06/11/[address] [facility] [address] [place] [address] [phone] Aarti Thacker MD [address] [place] [address] [phone] Other chronic pain Social History Tobacco Use [...] Description 01/21/2025 3:30 PM EDT Office Visit [facility] [address] [place] [phone] Aarti Thacker MD [address] [place] [address] 03/04/2025 10:00 AM EST Telemedicine [facility] [address] [place] [phone] Tyesha Lock RN documented as of this encounter Visit Diagnoses Diagnosis Other chronic pain documented in this encounter Care Teams Country Printer Relationship Specialty Start Date End Date Aarti Thacker MD [address] [place] [phone] PCP - General Family Medicine 02/04/20 documented as of this encounter
--- OUTSIDE RECORDS SUMMARY | 2024-12-16 08:40 | XMS_ITS | Encounter Summary ---
Author Organization [employer] Address [address] [facility] 7t [place] [address] Care Team Providers Care Customer Care Team Coach Name Role Phone Aarti Thacker MD Primary Care Provider [phone] Encounter Details Date Type Department Care Team (Latest Contact Info) Description 08/03/2018 Abstract [facility] CONVERSIONS Dental, Provider, DDS Social History [...] 3:30 PM EDT Office Visit [facility] [address] [place] [phone] Aarti Thacker MD [address] [place] [phone] 03/04/2025 10:00 AM EST Telemedicine [facility] [address] [place] [phone] Tyesha Lock, RASHAUN documented as of this encounter Visit Diagnoses Not on filedocumented in this encounter Care Teams Customer Care Team Coach Relationship Specialty Start Date End Date Aarti Thacker MD [address] [place] [phone] PCP - General Family Medicine 02/04/20 documented as of this encounter
== END 2024-12-16 08:16 | disposition home or self-care (01) ==
LOC: HO.XRAY 08:15
PROVIDERS: PCP General Practice; Visit Provider General Practice
DX: R13.14 Dysphagia, pharyngoesophageal phase (principal)
CPT/HCPCS: 74220

== ENCOUNTER → 2024-12-16 08:56 | Outpatient (BNV) | payer OTHER, SELFPAY | PROVIDERS: PCP General Practice; Visit Provider Radiology Diagnostic Radiology | DX: R13.10 Dysphagia, unspecified (principal) | CPT/HCPCS: 74221 ==

== ENCOUNTER 2025-03-15 12:58 | Outpatient (AMB) | payer OTHER, SELFPAY ==
[2025-03-15 12:59] VITALS: BP 110/64; PULSE 79; O2SAT 98; BMI 32.1
--- NOTE | 2025-03-15 12:59 | A.OFFVIS_ITS ---
Vital Signs 03/15/25 12:59 Height 5 ft Weight 164 lb 3.91 oz BMI 32.1 BP 110/64 Blood Pressure Location Lt brachial Position Sitting Pulse 79 Pulse Source Pulse Oximeter Pulse Oximetry (%) 98 Oxygen Delivery Method Room Air Intake Visit Reasons: Pulmonary Hypertension/Pre Op Colonoscopy Neurological Surgeon Required: Yes Neurological Surgeon Services: Neurological Surgeon Offered & Declined Neurological Surgeon Name: MD speaks bahraini Living Skills Advisor: Living Skills Advisor offered & declined Accompanied by: Self / Same As Patient Allergies morphine (MORPHINE) Allergy (Mild, Verified 03/15/25 13:03) NAUSEA, VOMITING, DIZZINESS, HOT FLASHES HPI Comments Details: The patient is a 74-year-old woman with known pulmonary hypertension. She also has obstructive airway disease and has been on short-acting beta agonist. She has been having increasing shortness of breath. And she has been using her rescue inhaler with partial response. At this point will start her on a maintenance inhaler. In addition to that in view of her pulmonary hypertension will go ahead and request an overnight oximetry to assess her for nocturnal hypoxia. She does have any evidence of any nocturnal hypoxia will be imperative to start her on oxygen supplementation to treat her underlying pulmonary hypertension. 04/29/2022 the patient is here for a pulmonary follow-up visit. Recently she went to the ER because of worsening respiratory symptoms and cough. There she had a chest x-ray without any significant changes show she does have the reticulonodular opacities her interstitial lung disease. Since we last spoke the patient was supposed to undergo blood work and she has not done as of yet. In addition to that the patient did not feel healthy enough to have a sleep study. Therefore she did not have that either. The patient is frustrated that she is no better. Although she also did not follow through with the recommendations. She was provided with prednisone in the hospital and did help her symptoms. She has completed the course at this time. She also finished a course of antibiotics. Again, she has significant interstitial lung disease. Her total lung capacity is decreased consistent with chronic restrictive lung disease from the interstitial lung disease. The etiologies still is unclear. Patient understands the blood work to help try to clear up the etiology of the fibrosis. Indeed, if this fibrosis is progressive then anti fibrotic agents will be warranted. Since the patient is developing significant cough and shortness of breath we did taken for brief walking oximetry in the patient was able to maintain a pulse ox in the low 90s. Therefore the patient does not qualify for oxygen. based on her ongoing symptoms will go ahead and put her on a small dose of prednisone to see if we can stabilize her condition as we move further. The patient understands the importance of the blood work that she needs to get prior to the next visit. In addition to that we briefly spoke about lung biopsies. The patient is reluctant to undergo any invasive or semi- invasive interventions at this time. 05/20/2022 the patient is here for a pulmonary follow-up visit. Overall the patient has been feeling a little better. She is tolerating the prednisone. We did review all her blood work. No evidence of any connective tissue conditions or hyper sensitivity reaction to we can identify. Therefore, no clear etiology for her interstitial lung disease. We talked about diagnostic interventions which is biopsies. However, explained to the patient that this may not necessarily change the overall treatment plan. Therefore will continue to assess the response to prednisone. I am hopeful that she response. we can better assess this will be repeating her imaging studies. In the meantime she continues to cough. The benzo night work great for her cough. Although the not covered. We did look for different alternatives including going with good [facility] to see if she can get him on a lower walker. These probably be the best option. Also, we did talk about the if there is any evidence of any progression of her pulmonary fibrosis to suggest progressive idiopathic pulmonary fibrosis then we can consider antifibrotic therapies at that time. 06/18/2022 the patient is here for a pulmonary follow-up visit. The patient overall is feeling better. She is is bonding well to the prednisone. Only taking 10 mg. Her prescription for the Benzonate is with still that [employer] and she did take a very low walker which she is happy about. Her sugars are reasonable staying in the normal range. We did talk about if there is any wors ening of the interstitial lung disease suggesting progressive pulmonary fibrosis then we will start Ofev. While give her some reading material in order for her to read up on it. I do believe that she will benefit from the medication if there is any evidence of progression of disease. She does continue to have issues with her sleep. She does wake up tired with headaches. Will perform an overnight oximetry to make sure that she does not need oxygen supplementation. In the meantime she continues with respiratory therapy with good effect. She does continue the Bentson eyes again with very good response improving her cough overall. 07/29/2022 the patient is here for pulmonary follow-up visit. She is feeling a little better on the prednisone and also continues on the Bentson eyes with good effect. Her cough is overall better. She still has some dyspnea on exertion with activity which is mild severity. We did review her last CT scan of the chest that she had in June 2022 demonstrating interval worsening of the interstitial lung disease as well as evidence of scarring and some evidence of ground-glass opacities. She therefore, based on the worsening disease I am concerned that she continued to have progressive symptoms. At the [facility] progressive interstitial lung disease with pulmonary fibrosis I do believe that she will be a good candidate for Ofev. Will go ahead and request a prior approval from her insurance company. She is in the meantime she continues on the prednisone. She is concerned about the side effects of prednisone but I do believe that she needs additional anti-inflammatory effect due to her ongoing symptoms and findings. Therefore, will go ahead and start him on CellCept. We did talk about potential biopsy. The patient is going to think about it. Will try these medication changes at this time. However, if the patient is no better or there is any worsening of disease then will have to further consider a biopsy. If the patient does need a biopsy and wedge biopsy will be passed 10/29/2022 the patient is here for pulmonary follow-up visit. She continues to have cough and also shortness of breath with activity. I did had sent her prescription for mycophenolate when she was last here. 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 He has been now about 3 months. Explained to her that it appears that she has interval worsening of her interstitial lung disease. She also has diabetes was difficult to increase her prednisone. Mycophenolate will be a very good option in order to decrease the inflammation and hopefully decrease the risk of further scarring. The patient also reviewed the CT scan with me. I did show her the CT scan she had back in 2021 and a CAT scan of 2022 demonstrating worsening of disease. The patient will start the mycophenolate at this time. I did write it down for her so she can start with 1 daily and then increase it to twice a day. In November she is going to come in and get x-rays and also blood work and will follow-up with her at that time. Will plan to repeat her PFTs sometime in February. Also we talked about Ofev. This is a medication we have sent to the pharmacy. We did send a script but not clear what happened as far as the process. I did reach out to our staff in the office to try to get an update of what occurred with the medication Request. Again I reviewed the blood work that we did with her. No evidence of any connective tissue disease. No evidence of any hypersensitivity pneumonitis. Her scarring is primarily at the base suggesting the possibility of UIP versus I fibrotic NSIP. Will see her response to therapy. If the patient does not have any significant response to the therapy then will consider surgical biopsy. 12/20/2022 the patient is here for a pulmonary follow-up visit. The patient continues to be about the same. She does have the frequent constant cough. It is nonproductive in nature. Responds well to the current medications. She also has shortness of breath with activity. Does not feel like she is getting any worse from the last visit. The patient did have a repeat chest x-ray demonstrating some interval worsening though. Therefore she understands that this interstitial lung disease may indeed be progressive which is a concern. She has been on mycophenolate although she is only taking 1 tablet daily with which she was supposed to be taking more. Therefore I did write down the instructions on how she is to take the mycophenolate. She is going to titrate up to hopefully 2 tablets b.i.d.. Blood work was reassuring without any evidence of any organ toxicity. When she reaches she is the 2 g a day does she will go ahead and have additional blood work. When she is on 2 g the patient will also cut down on the prednisone. We did talk about Ofev has good option for her specially if indeed this appears to be a per aggressive interstitial fibrosis. Therefore, will see how she responds to this current increase medications she will have a repeat chest x-ray and if there is any worsening of symptoms and or imaging studies then will go ahead and start Ofev. 03/18/2023 the patient is here for a pulmonary follow-up visit. Overall the patient has been doing well. Her cough is overall better. She still has dyspnea on exertion mild in severity. She continues to take the prednisone 10 mg daily and also was able to increase the mycophenolate now taking 1000 mg in the morning and 500 mg at nighttime. She did have a chest x-ray which I personally reviewed. I will see any significant changes although which still waiting for the final read. The patient has not started the also bibasilar yet. I am unsure if it was not approved by the insurance. At this point will do is we will go ahead and maximize her mycophenolate to 1000 mg twice a day and also she can decrease the prednisone some because of her history of diabetes. Will plan to repeat a CT scan in June closer to her last CT scan to see if there is any progression of the interstitial lung disease. If there is any progression of the eye LD then starting her on Ofev will be very important. If the patient has any worsening symptoms prior to the next visit she will call the office for an earlier assessment. Otherwise will follow-up then. 07/21/2023 the patient is here for a pulmonary follow-up visit. She has been tomasa erating mycophenolate well. She is now up to 2 g a day. She is off the prednisone altogether which is reassuring. She continues shortness of breath with activities about the same. She is also complaining of left-sided flank discomfort. The etiology discomfort still not clear though is bothersome to her. She did have a CT scan of the chest beginning of the month June 2023 which I personally reviewed with her. She does have the evidence of the reticular changes primarily in the periphery of the bases which is very suspicious for UIP pattern or IPF. She has been on the mycophenolate and seems to be helping. She is off the prednisone which is reassuring. Still an antifibrotic agent will be helpful in decreasing the degree of progression. We did look at previous CT scans from 2019 to 2022 in 2023. Seems to be some slight progression from 2021 to now. Therefore will go ahead and request Ofev at this time. She understands about the side effects. In addition to that she will undergo blood work to make sure she is tolerating the medicine. Send try Lidoderm patch to the affected area regarding the abdominal discomfort. 12/01/2023 the patient is here for a pulmonary follow-up visit. The patient has been doing fairly well with the medications. She is taking 2 g of mycophenolate daily in addition to the Ofev 100 mg daily. Seems to be tolerating well without any significant GI effects. She did have issues with 150 mg dose. In the meantime she continues exercise regularly. She does have shortness of breath with activity but she is usually able to walk for about a now our. Sometimes she has to stop because of more fatigue of her legs. The patient does not use any oxygen which is reassuring. She has not had any imaging studies in June. Will go ahead and plan to repeat her PFTs and chest x-ray within the next 3 months and will review. Hopefully we can decrease her mycophenolate dose some. The patient also will get vaccines. She is going to get her flu and her COVID booster. She knows to stop her mycophenolate several days before and several days after. The patient will also get her RSV vaccine as well she would do the same protocol. She does have a respiratory inhalers. Right now she is stable. 03/22/2024 the patient is here for a pulmonary follow-up visit. Since we last spoke the patient developed severe abdominal discomfort. She was having discomfort before but not as bad. She went to the hospital there she was diagnosed with acute pancreatitis. Although the etiology is not clear. She did have an MRI of the abdomen demonstrating no evidence of any anatomical obstructions to the biliary duct. She is status post cholecystectomy already. Therefore, need to consider other etiologies including medications. She has been Ofev which is did new medication. Will continue for now it can cause hepatitis but no evidence of any significant hepatitis at this time for her. She is also on mycophenolate that is also been shown to cause pancreatitis. Therefore will go ahead and decrease that 1 from 2 g a day to 1 g a day and will can not reassess her condition is here we can decrease it further. For now her abdominal pain is better. Will go ahead and request a repeat blood work in the coming weeks. She is also going to follow-up closely with GI to further address any other etiologies. I did review her CT scan of the abdomen at least the lung cuts we can see that her interstitial lung disease appears to be fairly stable right now. 07/21/2024 the patient is here for a pulmonary follow-up visit. Since we last spoke she did develop significant flu. This was back in April. In addition to that she is slowly stop the mycophenolate. She was supposed to decrease it down to 1 g daily. But, she stopped it completely. She continues in the office although she does not take it daily because it causes significant GI symptoms. She says already significant weight loss. She will have a colonoscopy soon and she has already had her mammogram. Will go ahead and request a repeat CT scan of the chest when she restarts the mycophenolate. She did have a chest x-ray which I personally reviewed. It appears that the interstitial disease seems to be worse, so therefore will have to look at the CT scan chest to see this is still the case. The patient is also having some muscle discomfort. Will go ahead and assess for antisynthetase syndrome. She will follow-up after the CAT scan a couple months. She has any issues prior to this she will call for an earlier assessment. 11/16/2024 the patient is here for a pulmonary follow-up visit. Overall she is doing okay. She does complaint of worsening cough. Also some dyspnea on exertion. Moderate severity. The Tessalon Perles do help but sometimes they are not covered. She did have repeat CT scan of the chest which I personally reviewed. Appears that the patient has some slight progression of the interstitial changes bilaterally compared to the CAT scan from 2023. Therefore we talked about the importance of continuing medications. Seems like she does get nauseous and she has had some weight loss related to the Ofev. She is already on the lower dose. For now she can take a break for several days and see if she gets any relief. But based on the progression of disease will be important to try to continue some therapy. In addition to that we will try to increase the mycophenolate again. We did decrease it the last time because of the pancreatitis. Seems to be doing better so will slowly increase it to 1 g in the morning and 500 mg at nighttime. She seemed to have had stability of disease when she was not higher dose. The patient also has having cough likely some bronchospasms. Her cough appears to be more bronchospastic. She has not been using the Symbicort because she does not like the way it makes her feel. Will go ahead and switch over to Trelegy I do believe Trelegy will be more effective for her helping her symptoms with a longer duration of effectiveness. Will follow-up in 3-4 months. If she has any issues prior to this she will call for further recommendations. 03/15/2025 the patient is here for a pulmonary follow-up visit. The patient overall has been doing okay. She does complain of dyspnea on exertion. She has been taking the mycophenolate. We had increase it to 2 tablets in the morning 1 tablet at nighttime. She was also taking the Ofev. She had issues in the past with some adverse effects from the mycophenolate with pancreatitis. Although she does have significant pulmonary fibrosis. Hopefully we can increase the mycophenolate back to the 2 g a day. Will go ahead and increase it and she will have blood work in the coming weeks to make sure that her liver function studies and lipase levels are within normal limits. She also continues on the Ofev 100 mg. We did go for walking oximetry. She did well maintaining a pulse ox the lowest 92% with activity. Therefore she still has some qualify for oxygen. Will have her come back in about 3 months and have her undergo pulmonary function studies. 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 Renal cyst Left flank pain Thoracic spine pain Abnormal chest x-ray Lower abdominal pain JAREK (obstructive sleep apnea) Colon cancer screening Hepatic steatosis JAREK (obstructive sleep apnea) Bibasilar crackles Dyspnea Chronic restrictive lung disease ILD (interstitial lung disease) Memory loss COPD (chronic obstructive pulmonary disease) OAB (overactive bladder) History of postoperative nausea and vomiting Diabetes Insomnia Pulmonary arterial hypertension Surgical History History of cholecystectomy H/O esophagogastroduodenoscopy History of hernia repair History of colonoscopy Family History Father Hx of diabetes insipidus Mother Hx of diabetes insipidus Social History Household Members: Family Housing: Apartment Do you presently have visiting nurse or other home services: Yes Alcohol intake: never Comment: tp refusing bed alarm Patient Tobacco Use Status: Never used Tobacco Years Smoked: 1yr Second Hand Smoke Exposure: No service: No Current occupational status: retired Review of Systems Const Denies fatigue, Denies fever(s), Denies night sweats, Denies poor appetite and Reports weight loss Eyes Details: glasses Reports requires corrective lenses ENT Reports Normal hearing present, Denies dental pain, Denies dysphagia, Denies hearing loss, Denies mouth pain, Denies odynophagia, Denies throat swelling, Denies tongue swelling and Reports other (Dentition adequate) Card Reports dyspnea on exertion Resp Reports cough and Reports dyspnea on exertion GI Reports abdominal pain, Denies melena, Denies bloating, Denies hematochezia, Denies constipation, Denies GI cramping, Denies dysphagia, Denies excessive flatus, Denies early satiety, Denies heartburn, Reports diarrhea, Denies nausea, Denies odynophagia, Denies vomiting and Denies hematemesis Skin/Breast Denies pruritus, Denies lesions, Denies rash and Denies jaundice Neuro Reports Normal hearing present and Denies Abnormal speech present Endo Denies fatigue Aller/Immun Denies throat swelling and Denies tongue swelling Physical Exam Vital Signs: Last Vital Signs Pulse 79 03/15/25 12:59 BP 110/64 03/15/25 12:59 Pulse Ox 98 03/15/25 12:59 Oxygen Delivery Method Room Air 03/15/25 12:59 BMI result Body Mass Index 32.1 Const General: alert HEENT General nose exam: Abnormal external nose present and Nasal discharge present Neck Neck: Yes normal visual inspection, Yes full ROM and Yes no lymphadenopathy Chest Chest palpation & inspection: normal inspection of the chest Resp Auscultation: rales bilateral and diminished lung sounds Cardio Rate: regular rate Rhythm: regular rhythm Heart sounds: S1 normal heart sound present and S2 normal heart sound present GI Palpation (GI): Soft to palpation and nontender Auscultation: normal bowel sounds General: Yes no CVA tenderness Back/Spine/Pelvis Back: no CVA tenderness Skin General skin exam: rashes and/or lesions noted Neuro Cranial nerves: Yes Normal hearing present Speech: No Abnormal speech present Extrem General: No clubbing, No cyanosis and Yes edema Assessment & Plan Assessment & Plan (1) Pulmonary arterial hypertension: Comment: secondary Code(s): I27.21 - Secondary pulmonary arterial hypertension Category: Medical (2) COPD (chronic obstructive pulmonary disease): Code(s): J44.9 - Chronic obstructive pulmonary disease, unspecified Category: Medical Qualifiers: COPD type: chronic bronchitis Chronic bronchitis type: simple Qualified Code(s): J41.0 - Simple chronic bronchitis (3) ILD (interstitial lung disease): Comment: progressively worsening based on CT chest Code(s): J84.9 - Interstitial pulmonary disease, unspecified Category: Medical (4) Chronic restrictive lung disease: Code(s): J98.4 - Other disorders of lung Category: Medical Plan Trelegy WILFRIDO as needed Increase cellcept 1gm am, 1gm PM continue OFEV 100mg bloodwork cough medication: benzonates, rx with [facility] Sleep with HOB elevated PFTs Pulmonary rehab F/U 3 months Orders: Orders PFT pulmonary function test Today J41.0 - Simple chronic bronchitis, J84.9 - Interstitial pulmonary disease, unspecified, J98.4 - Other disorders of lung Pulmonary Rehab Today J84.9 - Interstitial pulmonary disease, unspecified Lipase Today J84.9 - Interstitial pulmonary disease, unspecified Coding Level of Care Code Est Pt Level 4 (43018) Diagnoses Pulmonary arterial hypertension I27.21 Simple chronic bronchitis J41.0 COPD type: chronic bronchitis Chronic bronchitis type: simple ILD (interstitial lung disease) J84.9 Chronic restrictive lung disease J98.4 Time Spent (min) 17
--- OUTSIDE RECORDS SUMMARY | 2025-03-15 14:03 | XMS_ITS | Encounter Summary ---
Author Organization [employer] Address [address] [place] [address] Care Team Providers Care Material Coordinator Name Role Phone Aarti Thacker MD Primary Care Provider [phone] Encounter Details Date Type Department Care Team (Late st Contact Info) Description 11/19/2022 Abstract [facility] [address] [place] [address] [phone] Aarti Thacker MD [address] [place] [address] [phone] Social History Tobacco Use Types Packs/Day Years [...] Care Team (Late st Contact Info) Description 04/22/2025 1:30 PM EST Office Visit [facility] [address] [place] [address] [phone] Aarti Thacker MD [address] [place] [address] [phone] 06/03/2025 11:00 AM EDT Telemedicine [facility] [address] [place] [phone] Tyesha Lock RN documented as of this encounter Visit Diagnoses Not on filedocumented in this encounter Care Teams Material Coordinator Relationship Specialty Start Date End Date Aarti Thacker MD [address] [place] [address] PCP - General Family Medicine 02/04/20 documented as of this encounter
--- OUTSIDE RECORDS SUMMARY | 2025-03-15 14:03 | XMS_ITS | Encounter Summary ---
Author Organization [employer] Address [address] [facility] 7t [place] [address] Care Team Providers Care Management Retail Intern Name Role Phone Aarti Thacker MD Primary Care Provider [phone] Reason for Visit * Reason Comments Med Refill Encounter Details Date Type Department Care Team (Late st Contact Info) Description 08/25/2024 Refill [facility] [address] [place], [place] [phone] Aarti Thacker MD [address] [place], [place] [phone] DISH (diffuse idiopathic skeletal hyperostosis) Social History [...] the past 12 months, has t he [employer], gas, oil or water company threatened to [...] Description 04/22/2025 1:30 PM EST Office Visit [facility] [address] [place] [address] Aarti Thacker MD [address] [place] [address] 06/03/2025 11:00 AM EDT Telemedicine [facility] [address] [place] [address] Tyesha Lock RN documented as of this [...] documented as of this encounter Care Teams Management Retail Intern Relationship Specialty Start Date End Date Aarti Thacker MD [address] [place] [address] PCP - General Family Medicine 02/04/20 documented as of this encounter
--- OUTSIDE RECORDS SUMMARY | 2025-03-15 14:03 | XMS_ITS | Encounter Summary ---
Author Organization [employer] Address 75 [facility] 7t [place] [address] Care Team Providers Care Education Rn Name Role Phone Aarti Thacker MD Primary Care Provider [phone] Reason for Visit * Reason Comments Med Refill Encounter Details Date Type Department Care Team (Late Contact Info) Description 10/20/[address] [facility] [address] [place] [phone] Cristina Mcginnis FNP [address] [place], [place] [phone] Social History Tobacco Use Types Packs/Day Years [...] Description 04/22/2025 1:30 PM EST Office Visit [facility] [address] [place] [address] Aarti Thacker MD [address] [place] [address] [phone] 06/03/2025 11:00 AM EDT Telemedicine [facility] 230 [place] [address] Tyesha Lock RN documented as of this encounter Visit Diagnoses Not on filedocumented in this encounter Care Teams Education Rn Relationship Specialty Start Date End Date Aarti Thacker MD 230 [place] [address] PCP - General Family Medicine 02/04/20 documented as of this encounter
--- OUTSIDE RECORDS SUMMARY | 2025-03-15 14:03 | XMS_ITS | Encounter Summary ---
Author Organization [employer] Address [address] [facility] [address] 7t [place] [address] Care Team Providers Care Frame Sample And Pattern Supervisor Name Role Phone Aarti Thacker MD Primary Care Provider [phone] Encounter Details Date Type Department Care Team ([facility] st Contact Info) Description 04/05/2024 Telephone [facility]INE [address] [place], [place] [phone] Aarti Thacker MD 230 [place], [place] [phone] Social History Tobacco Use Types Packs/Day Years [...] your housing situation today? I have myranda howlel 01/08/[address] you li [...] Description 04/22/2025 1:30 PM EST Office Visit [facility] [address] [place] [address] Aarti Thacker MD [address] [place] [address] 06/03/2025 11:00 AM EDT Telemedicine [address] [address] Tyesha Lock, RN documented as of this [...] documented as of this encounter Care Teams Frame Sample And Pattern Supervisor Relationship Specialty Start Date End Date Aarti Thacker MD [address] [place] [phone] PCP - General Family Medicine 02/04/20 documented as of this encounter
--- OUTSIDE RECORDS SUMMARY | 2025-03-15 14:04 | XMS_ITS | Encounter Summary ---
Author Organization [employer] Address 75 [facility] 7t [place] [address] Care Team Providers Care Volleyball Assistant Coach Name Role Phone Aarti Thacker MD Primary Care Provider [phone] Reason for Visit * Reason Comments Med Refill Encounter Details Date Type Department Care Team (Late st Contact Info) Description 12/23/2024 Refill [facility] 230 [place], [place] [phone] Bina Ross MD 230 [place] [address] DISH (diffuse idiopathic skeletal hyperostosis) Social History [...] the past 12 months, has t he [employer], gas, oil or water company threatened to [...] Description 04/22/2025 1:30 PM EST Office Visit [facility] [address] [place] [address] Aarti Thacker MD [address] [place] [address] 06/03/2025 11:00 AM EDT Telemedicine [facility] [address] [place] [phone] Hayde, Tyesha, RN documented as of this encounter Goals [...] documented as of this encounter Care Teams Volleyball Assistant Coach Relationship Specialty Start Date End Date Aarti Thacker MD [address] [place] [address] PCP - General Family Medicine 02/04/20 documented as of this encounter
--- OUTSIDE RECORDS SUMMARY | 2025-03-15 14:04 | XMS_ITS | Encounter Summary ---
Author Organization [employer] Address [address] [facility] 7t [place] [address] Care Team Providers Care Pipe Maker Name Role Phone Aarti Thacker MD Primary Care Provider [phone] Reason for Visit * Reason Comments Med Refill Encounter Details Date Type Department Care Team ([facility] st Contact Info) Description 11/14/2023 Refill [facility] MEDICINE 230 [place], [place] [phone] Aarti Thacker MD 230 [place], [place] [phone] Social History Tobacco Use Types Packs/Day Years [...] Description 04/22/2025 1:30 PM EST Office Visit [facility] MED[facility]INE [address] [place] [address] Aarti Thacker MD [address] [place] [address] 06/03/2025 11:00 AM EDT Telemedicine [address] [address] Tyesha Lock RN documented as of this [...] as of this encounter Care Teams Pipe Maker Relationship Specialty Start Date End Date Aarti Thacker MD [address] [place] [address] PCP - General Family Medicine 02/04/20 documented as of this encounter
--- OUTSIDE RECORDS SUMMARY | 2025-03-15 14:04 | XMS_ITS | Encounter Summary ---
Author Organization [employer] Address 75 [facility] 7t [place] [address] Care Team Providers Care Strategic Debriefing Specialist Name Role Phone Aarti Thacker MD Primary Care Provider [phone] Reason for Visit * Reason Onset Date Comments Hospital Follow-up 03/11/2024 Encounter Details Date Type Department Care Team ([facility] st Contact Info) Description 03/11/2024 Telephone [facility] 230 [place], [place] [phone] Aarti Thacker MD 230 [place], [place] [phone] Hospital Follow-up Social History Tobacco Use Types [...] from pt requesting a HDF appt. Hospital: [facility] Date of admission: 03/04/24 Discharge date: 03/09/24 Diagnosed: Pancarditis *Send message to [place] Clinical Care Coordinators documented in this encounter Plan of Treatment Upcoming Encounters Date Type Department Care Team (Late st Contact Info) Description 04/22/2025 1:30 PM EST Office Visit [facility] [address] [place] [phone] Aarti Thacker MD [address] [place] [address] 06/03/2025 11:00 AM EDT Telemedicine [facility] [address] [place] [address] Tyesha Lock, RASHAUN documented as of this [...] documented as of this encounter Care Teams Strategic Debriefing Specialist Relationship Specialty Start Date End Date Aarti Thacker MD [address] [place] [address] PCP - General Family Medicine 02/04/20 documented as of this encounter
--- OUTSIDE RECORDS SUMMARY | 2025-03-15 14:04 | XMS_ITS | Encounter Summary ---
Author Organization [employer] Address [address] [facility] 7t [place] [address] Care Team Providers Care Return Agent Name Role Phone Aarti Thacker MD Primary Care Provider [phone] Encounter Details Date Type Department Care Team ([facility] st Contact Info) Description 12/20/2024 Orders Only [facility] MEDICINE [address] [place], [place] [phone] Aarti Thacker MD [address] [place], [place] [phone] Social History Tobacco Use Types Packs/Day Years [...] Description 04/22/2025 1:30 PM EST Office Visit [facility] MED[facility]INE [address] [place] [address] Aarti Thacker MD [address] [place] [address] 06/03/2025 11:00 AM EDT Telemedicine [facility] MED[facility]INE [address] [place] [address] Tyesha Lock RN documented as of this [...] documented as of this encounter Care Teams Return Agent Relationship Specialty Start Date End Date Aarti Thacker MD [address] [place] [address] PCP - General Family Medicine 02/04/20 documented as of this encounter
--- OUTSIDE RECORDS SUMMARY | 2025-03-15 14:04 | XMS_ITS ---
Author Organization [employer] [facility] Address [address] [place] [address] 7 [place] [address] Care Team Providers Care [facility] Name Role Phone Aarti Thacker MD Primary Care Provider [phone] VISION THERAPIST Status:Enrolled (Active) Start date:05/07/2022 Enrollment date:05/07/2022 Enrollment reason:Identified using pharmacy data Current support & services provided:Tier 4 (VISION THERAPIST) Case Team Name Relationship Phone Tyesha Lock RN(Responsible Staff) Registered Nu r[facility] Continued Care and Services Coordination
--- OUTSIDE RECORDS SUMMARY | 2025-03-15 14:04 | XMS_ITS | Clinical Summary ---
Author Organization [employer] Address [address] [facility] [address] [place] [address] Care Team Providers Care Tanning Consultant Name Role Phone Aarti Thacker MD Primary Care Provider [phone] Allergies Active Allergy Reactions Criticality Noted Date Comments Lisinopril Cough 09/05/2010 Morphine 02/07/2012 Medications atorvastatin (Lipitor) 40 MG tablet Take 1 tablet by mouth at bed time. Active losartan (Cozaar) 100 MG tablet Take 1 tablet by mouth 1 (one) time each day. Active Blood Pressure Monitoring (Blood Pressure Cuff) miscIndications: Benign hypertension Use to check your blood pressure [...] MOUTH IN THE MORNING 023 Active pancrelipase, Sua-Wgqi-Chdy, (Creon) 89084-15837 units capsule Take 2 capsules by mouth 2 times daily. Active amLODIPine (Norvasc) 10 MG tabletIndication s:Essential (primary) hypertension TAKE 1 TABLET BY MOUTH EVERY MORNING 90 tablet 3 Active TRUEplus Lancets 33G miscIndications: Type 2 diabetes mellitus with hyperglycemia, without long-term current use of insulin ([facility]) USE TO TEST BLOOD SUGAR TWICE DAILY 100 each Active FREESTYLE LITE test stripIndications :Type 2 diabetes mellitus with hyperglycemia, without long-term current use of insulin ([facility]) USE TO TEST BLOOD SUGAR TWICE DAILY 100 strip Active melatonin 5 MG tablet TAKE 2 TABLETS BY MOUTH EVERY DAY AT BEDTIME 180 tablet 1 02/17/20 11:13 AM EST Active metFORMIN XR (Glucophage-XR) 500 MG 24 hr tabletIndication s:Type 2 diabetes mellitus with diabetic polyneuropathy, without long-term current use of insulin ([facility]) Take 1 tablet (500 mg) by mouth 2 times daily. 180 tablet 3 02/17/20 11:13 AM EST Active albuterol 108 (90 Base) MCG/ACT inhalerIndicatio ns:Interstitial lung disease (CMS/HCC) ([facility]) Inhale 2 puffs every 4 (four) hours if needed for wheezing. 18 g 2025 Active D3 Super Strength 50 MCG (2000 UT) capsule TAKE 1 CAPSULE BY MOUTH EVERYDAY AT NOON 90 capsule 3 025 Active cyanocobalamin (Vitamin B-12) 1000 MCG tablet TAKE 1 TABLET BY MOUTH EVERYDAY AT NOON 90 tablet 3 025 Active gabapentin (Neurontin) 100 MG capsuleIndicatio ns:Diabetic polyneuropathy associated with type 2 diabetes mellitus ([facility]) TAKE 2 CAPSULES BY MOUTH TWICE DAILY IN THE MORNING AND AT BEDTIME 120 capsule 11 02/17/20 11:13 AM EST 025 Active naloxone (Narcan) 4 mg/0.1 mL nasal sprayIndications :Chronic pain syndrome Administer 1 spray (4 mg) into affected nostril(s) if needed for opioid reversal. In 1 nostril, may repeat dose every 2-3 minutes as needed alternating nostrils with each dose 2 each 2 Active aspirin (Aspirin Low Dose) 81 MG EC tablet Take 1 tablet (81 mg) by mouth at bedtime. 90 tablet 3 02/17/20 11:13 AM EST Active furosemide (Lasix) 20 MG tablet Take 1 tablet (20 mg) by mouth Once per day. 30 tablet 1 02/17/20 11:13 AM EST Active benzonatate (Tessalon) 200 MG capsule TAKE 1 CAPSULE BY MOUTH TWICE DAILY NEEDED FOR COUGH Active Trelegy Ellipta 200-62.5-25 MCG/ACT aerosol powder INHALE 1 PUFF EVERY DAY Active mycophenolate (Cellcept) 500 MG tablet TAKE 2 TABLETS BY MOUTH IN AM, & 1 TABLET IN PM Active isosorbide mononitrate ER (Imdur) 30 MG 24 hr tabletIndication s:Presbyesophagu s Take 1 tablet (30 mg) by mouth Once per day. Do not crush or chew. 30 tablet 11 02/17/20 11:13 AM EST 2025 Active Ofev 100 MG capsule TAKE 1 CAPSULE BY MOUTH EVERY TWELVE HOURS 60 capsule 3 02/17/20 11:13 AM EST Active oxyCODONE-acetam inophen (Percocet) 10-325 MG tabletIndication s:DISH (diffuse idiopathic skeletal hyperostosis) Take 1 tablet by mouth if needed at bedtime for severe pain for up to 28 days. Do not start before March 16, 2025. 28 tablet 025 2025 Active oxyCODONE-acetam inophen (Percocet) 5-325 MG tabletIndication s:DISH (diffuse idiopathic skeletal hyperostosis) Take 1 tablet by mouth See administration instructions for 28 days. Take 1 tablet every morning & afternoon as needed for pain. Do not start before March 16, 2025. 56 tablet 025 2025 Active oxyCODONE-acetam inophen (Percocet) 5-325 MG tabletIndication s:DISH (diffuse idiopathic skeletal hyperostosis) Take 1 tablet by mouth every 8 (eight) hours if needed for severe pain. Do not start before January 21, 2025. 84 tablet 025 2024 Discontinued(R eorder (will not trigger notification to Pharmacy)) oxyCODONE-acetam inophen (Percocet) 5-325 MG tabletIndication s:DISH (diffuse idiopathic skeletal hyperostosis) Take 1 tablet by mouth See administration instructions for 28 days. Take 1 tablet every morning & afternoon as needed for pain. Do not start before February 16, 2025. 56 tablet 02/17/20 11:13 AM EST 025 2024 Discontinued(R eorder (will not trigger notification to Pharmacy)) oxyCODONE-acetam inophen (Percocet) 10-325 MG tabletIndication s:DISH (diffuse idiopathic skeletal hyperostosis) Take 1 tablet by mouth if needed at bedtime for severe pain for up to 28 days. Do not start before February 16, 2025. 28 tablet 02/17/20 11:13 AM EST 025 2024 Discontinued(R eorder (will not trigger notification to Pharmacy)) Hospital, Clinic, or Other Facility Administered Medication Ordered Dose Route Frequency Start Date End Date Status lidocaine (Xylocaine) 2 % injection 40 mgIndications:Gluteal abscess 40 mg IJ Once 01/21/2025 Active Active Problems Problem Noted Date Diagnosed Date Gluteal abscess 01/24/2025 Overweight 08/25/2024 Pharyngoesophageal dysphagia 08/25/2024 Long-term current use of opiate analgesic 2024 Overview (01/21/2025): Dx: DISH Rx: Percocet 5/325mg q am and qnoon and 10/650 at night Last [employer]EDIT [employer]LE[employer] SPECIALIST agreement: Tier II (visit every 3 months) [...] (12/03/2023 2:12 PM EDT): Follow-up after seeing wong rheum Consider discussion of changing opioids meds [...] EDT): On Percocet 5/325 three times daily CREDIT COLLECTIONS SPECIALIST agreement in place and pt understands risks and benefits of medication Feels back pain is worsening, and radiating into hip and down leg Will obtain DEXA (age > 65, post menopause, and detention steroid use) and disposition to rheum/ortho after those results Acute pain of right shoulder 06/07/2022 Assessment & Plan (06/07/2022 9:53 AM EDT): Naproxen twice a day as needed Interstitial lung disease (CMS/HCC) 03/18/2022 Assessment & Plan (07/06/2023 5:27 PM [...] (periodic limb movement disorder) 9 Asthma 10/23/2018 Abdominal pain 07/22/2016 Female stress incontinence 07/22/2016 [...] today for 5 days Obesity 03/18/2022 08/25/2024 Pulmonary hyperinflation 09/07/201805/2024 Tinea pedis 02/07/2012 08/25/2024 Proteinuria 10/28/2004 08/25/2024 Encounters Date Type Department Care Team Description 03/14/2025 Refill [facility] [address] [place] [address] Aarti Thacker MD DISH (diffuse idiopathic skeletal hyperostosis) 03/04/2025 10:00 AM EST Telemedicine [facility] [address] [place] [address] Tyesha Lock RN Long-term current use of opiate analgesic 03/04/[address] [address] Tyesha Lock RN BPI scoring 03/04/2025 Travel 02/14/2025 Refill [facility] [address] [place] [address] Aarti Thacker MD DISH (diffuse idiopathic skeletal hyperostosis) 01/21/2025 3:30 PM EDT Office Visit [facility] [address] [place] [address] Aarti Thacker MD Type 2 diabetes mellitus with diabetic polyneuropathy, without long-term current use of insulin (HCC) (Primary Dx); Long-term current use of opiate analgesic; Gluteal abscess; Pulmonary arterial hypertension (HCC); Hypercholesterolemia; Essential hypertension; Diabetes mellitus type 2 with peripheral artery disease (HCC); Fatty liver; Gastroesophageal reflux disease without esophagitis; DISH (diffuse idiopathic skeletal hyperostosis); Interstitial lung disease (CMS/HCC) (HCC); Obstructive sleep apnea 01/21/2025 Travel 01/20/2025 Refill [facility] [address] [place] [address] Aarti Thacker MD DISH (diffuse idiopathic skeletal hyperostosis) 01/20/2025 Telephone [facility] [address] [place] [address] Aarti Thacker MD chart prep 01/15/2025 Refill [facility] [address] [place] [phone] Aarti Thacker MD 01/14/2025 2:20 PM EDT Office Visit [facility] [address] [place] [phone] Adriana Blakely, ANP Abscess, gluteal (Primary Dx) 01/14/2025 Travel 01/13/2025 Patient Outreach [facility] [address] [place] [address] Aarti Thacker MD Pre-visit Planning (SDOH was already completed) 01/04/2025 Orders Only [facility] [address] [place] [phone] Aarti Thacker MD Presbyesophagus (Primary Dx) 12/31/2024 Refill [facility] [address] [place] [phone] Aarti Thacker MD 12/23/2024 Refill [facility] [address] [place] [phone] Bina Ross MD DISH (diffuse idiopathic skeletal hyperostosis) 12/23/2024 Refill [facility] [address] [place] [address] Aarti Thacker MD DISH (diffuse idiopathic skeletal hyperostosis) 12/20/2024 3:40 PM EDT Office Visit [facility] [address] [address] Bina Ross MD 12/20/2024 Travel 12/20/2024 Orders Only [facility] [address] [place] [phone] Aarti Thacker MD 12/17/2024 Results Follow-Up [facility] [address] [place] [phone] Aarti Thacker MD FL Esophagus Barium Swallow from Last 3 Months Immunizations Immunization Administration Dates Next Due Hep B, adult 12/21/2002,07/16/2002,06/16/2002 Influenza High-dose Quadriva lent Preservative Free 12/24/2021 Influenza injectable quadriv alent IIV4 with preservative 01/24/2017,04/05/2016 Influenza injectable quadriv alent preservative free 12/30/2018,03/10/2018,02/06/2015 Influenza, High Dose Seasona l, Preservative Free 11/16/2024 Influenza, IIV3, injectable 01/21/2014, 5 Influenza, Split (incl. emily [place] antigen) 12/24/2012,02/07/2012 Influenza, trivalent, adjuvanted 12/17/2023 MMR 12/21/2002 Moderna Covid-19 Vaccine 12+ 02/14/2021,06/16/19 21,05/18/2020 Pneumococcal Conjugate PCV 20 12/20/2022 Pneumococcal Polysaccharide PPSV23 03/08/2005 RSV Adjuvant 11/16/2024 TD (adult), 2 Lf tetanus tox oid, [...] your housing situation today? I have myranda lynda 08/11/[address] you li [...] Sign Reading Time Taken Comments Blood Pressure 142/80 01/21/2025 3:45 PM EDT Pulse 60 01/21/2025 3:45 PM EDT Temperature 36.1 C (97 F) 01/21/2025 3:45 PM EDT Respiratory Rate 16 01/21/2025 3:45 PM EDT Oxygen Saturation 95% 01/14/2025 2:24 PM EDT Inhaled Oxygen Concentration - - Weight 74.9 kg (165 lb 3.2 oz) 01/21/2025 3:45 P M EDT Height 152.4 cm (5') 01/21/2025 3:45 PM EDT Body Mass Index 32.26 01/21/2025 3:45 PM EDT Plan of Treatment Upcoming Encounters Date Type Department Care Team (Late st Contact Info) Description 04/22/2025 1:30 PM EST Office Visit [facility] [address] [place] [phone] Aarti Thacker MD [address] [place] [address] 06/03/2025 11:00 AM EDT Telemedicine [facility] [address] [place] [address] [phone] Tyesha Lock, RN Health Maintenance Due Date Last Done Comments CT Colonography 1950 FIT DNA/Cologuard 1950 FIT 1950 FOBT 1950 Sigmoidoscopy 1950 Diabetes: Foot Exam 1962 Eye Exam 1962 Alcohol/Substance Use Screening 1964 Hepatitis A Vaccines (1 of 2 - Risk 2-dose series) 1971 Zoster Vaccines (1 of 2) 04/03/2015 02/06/2015 DTaP/Tdap/Td Vaccines (2 - Td or Tdap) 04/08/2022 04/08/2012, 11/12/2002 Mammogram 10/15/2024 10/16/2023, 09/21, 08/14/2021, Additional history exists Diabetes: Hemoglobin A1C 02/22/2025 025, 03/30/2024, 12/01/2023, Additional history exists Depression Monitoring 02/24/2025 08/25/2024, 025 COVID-19 Vaccine (7 - Moderna risk season) 2025 01/24/2025, 12/17/2023, 12/24/2021, Additional history exists SDOH Screening 08/11/2025 08/11/2024 Diabetes: Urine Protein Screening 09/10/2025 09/10/2024, 07/03/2023, 03/26/2021 Lipid Panel 09/10/2025 09/10/2024, 06/22, 03/26/2021 Colonoscopy 12/22/2025 12/22/2020 Colorectal Cancer Screening 12/22/2025 Tobacco Screening 01/21/2026 01/21/2025 Hepatitis B Vaccines Completed 12/21/2002, 07/16/2002, 06/16/2002 [...] will adhere to medication regimen General Genoveva Beavers PharmD Hemoglobin A1c < 7.5 Result Component 6(08/23/2024 4:09 PM EDT) Genoveva Beavers PharmD Help patients manage their type 2 diabetes Care Plan Help patients manage their type 2 diabetes No Oumar Crum Weekly blood pressure task Care Plan Weekly blood pressure task No Oumar Crum Help patients manage their type 2 diabetes Care Plan Help patients manage their type 2 diabetes No Oumar Crum Patient has chronic kidney disease Care Plan Patient has chronic kidney disease No Oumar Crum Help patients manage their type 2 diabetes Care Plan Help patients manage their type 2 diabetes No Oumar Crum Patient has diabetic neuropathy Care Plan Patient has diabetic neuropathy No [place]umar [place] Weekly blood pressure task Care Plan Weekly blood pressure task No Oumar [place] Weekly blood pressure task Care Plan Weekly blood pressure task No Oumar Crum Patient has chronic kidney disease Care Plan Patient has chronic kidney disease No Oumar Crum Patient has chronic kidney disease Care Plan Patient has chronic kidney disease No Oumar Crum Patient has diabetic neuropathy Care Plan Patient has diabetic neuropathy No Oumar Crum Patient has diabetic neuropathy Care Plan Patient has diabetic neuropathy No Oumar Crum Weekly blood pressure task Care Plan Weekly blood pressure task No Tyesha Lock RN Weekly blood pressure task Care Plan Weekly blood pressure task No Tyesha Lock RN Weekly blood pressure task Care Plan Weekly blood pressure task No Tyesha Lock RN Patient has chronic kidney disease Care Plan Patient has chronic kidney disease No Tyesha Lock RN Patient has chronic kidney disease Care Plan Patient has chronic kidney disease No Tyesha Lock RN Patient has chronic kidney disease Care Plan Patient has chronic kidney disease No Tyesha Lock RN Patient has diabetic neuropathy Care Plan Patient has diabetic neuropathy No Tyesha Lock RN Patient has diabetic neuropathy Care Plan Patient has diabetic neuropathy No Tyesha Lock RN Patient has diabetic neuropathy Care Plan Patient has diabetic neuropathy No Tyesha Lock RN Weekly blood pressure task Care Plan Weekly blood pressure task No Tyesha Lock RN Weekly blood pressure task Care Plan Weekly blood pressure task No Tyesha Lock RN Weekly blood pressure task Care Plan Weekly blood pressure task No Tyesha Lock RN Patient has chronic kidney disease Care Plan Patient has chronic kidney disease No Tyesha Lock RN Patient has chronic kidney disease Care Plan Patient has chronic kidney disease No Tyesha Lock RN Patient has chronic kidney disease Care Plan Patient has chronic kidney disease No Tyesha Lock RN Patient has diabetic neuropathy Care Plan Patient has diabetic neuropathy No Tyesha Lock RN Patient has diabetic neuropathy Care Plan Patient has diabetic neuropathy No Tyesha Lock RN Patient has diabetic neuropathy Care Plan Patient has diabetic neuropathy No Tyesha Lock RN Weekly blood pressure task Care Plan Weekly blood pressure task No Katia [place] Weekly blood pressure task Care Plan Weekly blood pressure task No Katia Hill Weekly blood pressure task Care Plan Weekly blood pressure task No [place]ia [place] Patient has chronic kidney disease Care Plan Patient has chronic kidney disease No [place] Patient has chronic kidney disease Care Plan Patient has chronic kidney disease No [place] Patient has chronic kidney disease Care Plan Patient has chronic kidney disease No [place] Patient has diabetic neuropathy Care Plan Patient has diabetic neuropathy No [place] Patient has diabetic neuropathy Care Plan Patient has diabetic neuropathy No [place] Patient has diabetic neuropathy Care Plan Patient has diabetic neuropathy No Katia Hill Procedures Procedure Name Priority Date/Time Associated Diagnosis Comments INCISE AND DRAIN ABSCESS Routine 01/21/2025 4:00 PM EDT Gluteal abscess POCT GLUCOSE ([id number]) Routine 01/21/2025 3:47 PM EDT Type 2 diabetes mellitus with diabetic polyneuropathy, without long-term current use of insulin ([facility]) FL ESOPHAGUS BARIUM SWALLOW Routine 12/16/2024 8:31 AM EDT Pharyngoesophageal dysphagia LIPID PANEL, STANDARD Routine 09/10/2024 1:01 PM [...] Recently Relevant to Health Maintenance Results * Incise and drain abscess (01/21/2025 4:00 PM EDT) Aarti Pierce MD - 01/21/2025 4:00 PM EDT Aarti Thacker MD 01/24/2025 1:17 PM Incise and drain abscess Date/Time: 01/21/2025 4:00 PM Performed by: Aarti Thacker MD Authorized by: Aarti Thacker MD Confirmed correct patient, procedure, site, and patient consented: Yes Consent: Consent obtained: Written Consent given by: Patient Procedure risks and benefits discussed: Yes Patient questions answered: Yes Patient agrees, verbalizes understanding, and wants to proceed: Yes Instructions and paperwork completed: Yes [place] protocol: Procedure explained and questions answered to patient or proxy's satisfaction: yes Relevant documents present and verified: yes Test results available: yes Site/side marked: yes Immediately prior to procedure, a time out was called: yes Patient identity confirmed: Verbally with patient Indications: Indications: 3cm abscess R central glute Pre-procedure details: Skin preparation: Chlorhexidine with alcohol Sedation: Sedation type: None Anesthesia: Anesthesia method: Local infiltration Local anesthetic: Lidocaine 2% w/o epi Procedure specific details: Patient was prepped and anesthetized as described above. A single 1.5cm linear incision was made over the area of maximal fluctuance with good return of purulent and serosanginous fluid. Loculations in the mature abscess were broken up by expression of fluid and gentle probing with the scalpel tip. Post-procedure details: Procedure completion: Tolerated well, no immediate complications Aarti Thacker MD IN CLINIC/BEDSIDE ORDERABLES F inal Result * POCT Glucose (01/21/2025 3:47 PM EDT) Glucose Blood, POC 89 60 - 200 mg/dL QC Media Lot # [id number] Lot# Expiration Date 026 Blood Capillary blood specimen / Unknown 01/21/2025 3:47 PM EDT Aarti Thacker MD POINT OF CARE TEST ENTER/EDIT ORDERABLES Final Result * FL Esophagus Barium Swallow (12/16/2024 8:31 AM EDT) Anatomical Region Laterality Modality Head, Neck Radiographic Mayte ging 12/16/2024 8:31 AM EDT Narrative 12/16/2024 11:13 AM EDT [address] [address] Fluoroscopy Report Signed Patient: Snehal Ryan MR#: [id number] : 1950 Acct:[id number] Age/Sex: 74 / F ADM Date: 12/16/24 Loc: HO.XRAY Attending Dr: Aarti Thacker MD Ordering Physician: Aarti Thacker Date of Service: 12/16/24 Procedure(s): FL barium swallow Accession Number(s): [id number] cc: Aarti Thacker Reason for Exam: pain with swallowing EXAMINATION: XR BARIUM SWALLOW CLINICAL INFORMATION: Pain with swallowing COMPARISON: None available. TECHNIQUE: Routine barium swallow was performed in upright view with thick barium and barium coated saltine crackers and thin barium in prone lying position. FINDINGS: Following oral administration of thick barium in upright view in different positions there is normal propagation bolus from the oral cavity through the pharynx, esophagus into stomach without laryngeal penetration and aspiration. Occasional tertiary peristalsis was seen in the distal esophagus but no obstruction seen. The GE junction is widely patent. On oral administration of barium coated saltine crackers is normal oral mastication with propagation bolus from the oral cavity through the pharynx, esophagus into stomach without obstruction, narrowing or stricture. FLUOROSCOPY TIME: 2 minute 12 seconds DOSE AREA PRODUCT: 43.24 uGy-m2 (microgray-meter squared) FL/FL barium swallow IMPRESSION: Occasional tertiary peristalsis in the distal esophagus suggestive of presbyesophagus. No obstructive or constrictive lesion seen especially in left pharynx or upper esophagus where patient complains of pain. Electronically signed by: Raoul Perez MD 12/16/2024 11:10 AM EDT RP Dictated By: Raoul Perez MD Signed By: <Electronically signed by Raoul Perez MD in OV> 12/16/24 1110 DD/ 0 TD/TT: 12/16/24855 Auction Assistant: PETERSON Procedure Note Donotuseinterpreter, Image - 12/16/[address] [address] Fluoroscopy Report Signed Patient: Snehal Ryan LMR#: [id number] : 1950cct:[id number] Age/Sex: 74 / FADM Date: 12/16/24 Loc: HO.XRAY Attending Dr: Aarti Thacker MD Ordering Physician: Aarti Thacker Date of Service: 12/16/24 Procedure(s): FL barium swallow Accession Number(s): [id number] cc: Aarti Thacker Reason for Exam: pain with swallowing EXAMINATION: XR BARIUM SWALLOW CLINICAL INFORMATION: Pain with swallowing COMPARISON: None available. TECHNIQUE: Routine barium swallow was performed in upright view with thick barium and barium coated saltine crackers and thin barium in prone lying position. FINDINGS: Following oral administration of thick barium in upright view in different positions there is normal propagation bolus from the oral cavity through the pharynx, esophagus into stomach without laryngeal penetration and aspiration. Occasional tertiary peristalsis was seen in the distal esophagus but no obstruction seen. The GE junction is widely patent. On oral administration of barium coated saltine crackers is normal oral mastication with propagation bolus from the oral cavity through the pharynx, esophagus into stomach without obstruction, narrowing or stricture. FLUOROSCOPY TIME: 2 minute 12 seconds DOSE AREA PRODUCT: 43.24 uGy-m2 (microgray-meter squared) FL/FL barium swallow IMPRESSION: Occasional tertiary peristalsis in the distal esophagus suggestive of presbyesophagus. No obstructive or constrictive lesion seen especially in left pharynx or upper esophagus where patient complains of pain. Electronically signed by: Raoul Perez MD 12/16/2024 11:10 AM EDT Dictated By: Raoul Perez MD Signed By: <Electronically signed by Raoul Perez MD in [place]> 12/16/24 1110 DD/ 0 TD/TT: 12/16/24855 Auction Assistant: MSM us Aarti Thacker MD IMG FLUOROSCOPY PROCEDURES Fin al Result * (ABNORMAL) Lipid Panel, Standard (09/10/2024 1:01 PM EDT) Triglycerides 126 <150 mg/dL [facility] Comment:Desirable Triglyceri de: less than 150 mg/dLBorderline High Triglyceride 150-199 mg/dLHigh Triglyceride: 200-499 mg/dLVery High Triglyceride: greater than or equal to 5OO mg/dL Cholesterol 193 <200 mg/dL [facility] Comment:Desirable Cholestero l: less than 200 mg/dLBorderline High Cholesterol: 200-239 mg/dLHigh Cholesterol: greater than 239 mg/dL LDL Cholesterol Calculated 107(H) <100 mg/dL [facility] Comment:Desirable LDL: less than 100 mg/dLNear Optimal/Above Optimal LDL: 110- 129 mg/dLBorderline High LDL: 130-159 mg/dLHigh LDL: 160-189 mg/dLVery High LDL: greater than or equal to 190 mg/dL HDL Cholesterol 61 >40 mg/dL [facility] Comment:Desirable HDL: great er than 40 mg/dL Note: This HDL assay may give artificially low results in patients with liver disease. Blood Venous blood specimen / Unknown 09/10/2024 1:01 PM EDT 09/10/2024 1:01 PM EDT us Aarti Thacker MD LAB BLOOD ORDERABLES Final Res ult [facility] [address] [place] [phone] * Albumin, Random Urine W/Creatinine (09/10/2024 12:53 PM EDT) Creatinine, Urine 51.38 mg/dL [facility] Microalbumin Urine 10.0 mg/L [facility] Microalbum Creatinine Ratio Ur 19.4 <30 ug/mg cr [facility] Comment:Albumin/Creatinine R atio Reference Ranges: Normal: < 30 ug/mg creatinine Microalbuminuria: 30 - 300 ug/mg creatinineClinical Albuminuria: > 300 ug/mg creatinine Urine (Urine, Random) 09/10/2024 12:53 PM EDT 09/10/2024 1:16 PM EDT Aarti Thacker MD LAB URINE ORDERABLES Final Res ult [facility] [address] [place] [phone] * POCT HGB A1C (08/23/2024 4:09 PM EDT) Hemoglobin A1C 6.0 4.0 - 6.0 % Blood 08/23/2024 4:09 PM EDT Aarti Thacker MD POINT OF CARE TEST ENTER/EDIT ORDERABLES Final Result * BI Mammogram Screening Tomosynthesis Bilateral (10/16/2023 9:14 AM EDT) Anatomical Region Laterality Modality Breast Bilateral Mammography 10/16/2023 9:14 AM EDT Narrative 11/05/2023 9:00 PM EDT [address] [place] [address] Mammography Report Signed Patient: Snehal Ryan MR#: [id number] : 1950 Acct:[id number] Age/Sex: 73 / F ADM Date: 10/16/23 Loc: HO.MAMMO Attending Dr: Aarti Thacker MD Ordering Physician: Aarti Thacker Results: 1Negative Date of Service: 10/16/23 Follow Up: 1 Year From Orig inal Mammogram Procedure(s): MM tomosynthesis screening BI Accession Number(s): [id number] cc: Aarti Thacker EXAMINATION: MM SCREENING DIGITAL [...] MD in OV> 11/05/232056 DD/ 3 TD/TT: Auction Assistant: Procedure Note Donotuseinterpreter, [facility] - [facility] [address] [place] [address] Mammography Report Signed Patient: Snehal Ryan LMR#: [id number] : 3Acct:[id number] Age/Sex: 73 / FADM Date: 10/16/23 Loc: NIKIA Attending Dr: Aarti Thacker MD Ordering Physician: Mercy Thackerults: 1Negative Date of Service: 10/16/23Follow Up: 1 Year From Orig inal Mammogram Procedure(s): MM tomosynthesis screening BI Accession Number(s): [id number] cc: Aarti Thacker EXAMINATION: MM SCREENING DIGITAL [...] MD in OV> 11/05/232056 DD/ 3 TD/TT: Auction Assistant: Aarti Thacker MD IMG BI PROCEDURES Final Result * Hepatitis C Antibody with Reflex to HCV, RNA, Quantitative, Real-Time PCR (07/03/2023 12:00 PM EDT) Hepatitis C Antibody Nonreactive Nonreactive [facility] Comment:Antibodies to HCV no t detected; does not exclude early acuteHCV infection. Blood Venous blood specimen / Unknown 07/03/2023 12:00 PM EDT 07/03/2023 1:16 PM EDT Aarti Thacker MD LAB BLOOD ORDERABLES Final Res ult [facility] [address] [place] [phone] * (ABNORMAL) Hm Colonoscopy (12/22/2020) Colonoscopy Abnormal(A ) Normal Historical Provider HEALTH MAINTENANCE Edited Result - Final from Last 3 Months or Most Recently Relevant to Health Maintenance Additional Health Concerns Active Problems Noted Date Diagnosed Date Help patients manage their type 2 diabetes 02/14 Weekly blood pressure task 02/14/2025 Help patients manage their type 2 diabetes 02/14 Patient has chronic kidney disease 02/14/2025 Help patients manage their type 2 diabetes 02/14 Patient has diabetic neuropathy 02/14/2025 Weekly blood pressure task 02/14/2025 Weekly blood pressure task 02/14/2025 Patient has chronic kidney disease 02/14/2025 Patient has chronic kidney disease 02/14/2025 Patient has diabetic neuropathy 02/14/2025 Patient has diabetic neuropathy 02/14/2025 Weekly blood pressure task 02/22/2025 Weekly blood pressure task 02/22/2025 Weekly blood pressure task 02/22/2025 Patient has chronic kidney disease 02/22/2025 Patient has chronic kidney disease 02/22/2025 Patient has chronic kidney disease 02/22/2025 Patient has diabetic neuropathy 02/22/2025 Patient has diabetic neuropathy 02/22/2025 Patient has diabetic neuropathy 02/22/2025 Weekly blood pressure task 03/04/2025 Weekly blood pressure task 03/04/2025 Weekly blood pressure task 03/04/2025 Patient has chronic kidney disease 03/04/2025 Patient has chronic kidney disease 03/04/2025 Patient has chronic kidney disease 03/04/2025 Patient has diabetic neuropathy 03/04/2025 Patient has diabetic neuropathy 03/04/2025 Patient has diabetic neuropathy 03/04/2025 Weekly blood pressure task 03/14/2025 Weekly blood pressure task 03/14/2025 Weekly blood pressure task 03/14/2025 Patient has chronic kidney disease 03/14/2025 Patient has chronic kidney disease 03/14/2025 Patient has chronic kidney disease 03/14/2025 Patient has diabetic neuropathy 03/14/2025 Patient has diabetic neuropathy 03/14/2025 Patient has diabetic neuropathy 03/14/2025 Insurance [facility] [employer] (O D-SNP) [place] [id number] Care Teams Tanning Consultant Relationship Specialty Start Date End Date Aarti Thacker MD [address] [place] [address] [place] [address] PCP - General Family Medicine 02/04/20
--- OUTSIDE RECORDS SUMMARY | 2025-03-15 14:04 | XMS_ITS | Encounter Summary ---
Author Organization [employer] Address [address] [facility] 7t [place] [address] Care Team Providers Care Negative Restorer Name Role Phone Aarti Thacker MD Primary Care Provider [phone] Encounter Details Date Type Department Care Team (Latest Contact Info) Description 08/03/2018 Abstract [facility] CONVERSIONS Dental, Provider, DDS Social History [...] Description 04/22/2025 1:30 PM EST Office Visit [address] [address] Aarti Thacker MD [address] [place] [phone] 06/03/2025 11:00 AM EDT Telemedicine [facility] [address] [place] [phone] Tyesha Lock, RASHAUN documented as of this encounter Visit Diagnoses Not on filedocumented in this encounter Care Teams Negative Restorer Relationship Specialty Start Date End Date Aarti Thacker MD [address] [place] [address] [phone] PCP - General Family Medicine 02/04/20 documented as of this encounter
--- OUTSIDE RECORDS SUMMARY | 2025-03-15 14:04 | XMS_ITS | Encounter Summary ---
Author Organization [employer] Address [address] [facility] 7t [place] [address] Care Team Providers Care Merchandise Coordinator Name Role Phone Aarti Thacker MD Primary Care Provider [phone] Reason for Visit * Reason Onset Date Comments Med Refill 03/14/2025 Encounter Details Date Type Department Care Team (Late st Contact Info) Description 03/14/2025 Refill [facility] [address] [place], [place] [phone] Aarti Thacker MD [address] [place], [place] [phone] DISH (diffuse idiopathic skeletal hyperostosis) Social History [...] the past 12 months, has t he [employer] gas, oil or water company threatened to [...] encounter Miscellaneous Notes * Telephone Encounter - Katia Hill - 03/14/2025 11:27 AM EST TC from pt requesting medication refill. Medications needing refill : oxyCODONE-acetaminophen (Percocet) 5-325 MG tablet oxyCODONE-acetaminophen (Percocet) 10-325 MG tablet To be sent to: [facility] [place] - [address] [facility] documented in this encounter Plan of Treatment Upcoming Encounters Date Type Department Care Team (Late st Contact Info) Description 04/22/2025 1:30 PM EST Office Visit [facility] [address] [place] [phone] Aarti Thacker MD [address] [place] [address] 06/03/2025 11:00 AM EDT Telemedicine [facility] [address] [place] [phone] Tyesha Lock RN documented as of this encounter Goals Goal Patient Goal Type Associated Problems Recent Progress Patient-Stated? Author Patient will adhere to medication regimen General No Genoveva Handy PharmD Hemoglobin A1c < 7.5 Result Component 6(08/23/2024 4:09 PM EDT) No Genoveva Handy PharmD Help patients manage their type 2 [...] Plan Patient has diabetic neuropathy No Katia iHll Patient has diabetic neuropathy Care Plan Patient has diabetic neuropathy No Katia Hill Patient has diabetic neuropathy Care Plan Patient has diabetic neuropathy No Katia Hill documented as of this encounter Visit Diagnoses Diagnosis DISH (diffuse idiopathic skeletal hyperostosis) Ankylosing vertebral hyperostosis documented in this encounter Additional Health Concerns Active Problems Noted Date [...] neuropathy 03/14/2025 Patient has diabetic neuropathy 03/14/2025 Assessment Noted Time PHQ-9 Depression Total Score: 9 08/26/19 25 9:45 AM EDT documented as of this encounter Care Teams Merchandise Coordinator Relationship Specialty Start Date End Date Aarti Thacker MD [address] [place] [phone] PCP - General Family Medicine 02/04/20 documented as of this encounter
--- OUTSIDE RECORDS SUMMARY | 2025-03-15 14:04 | XMS_ITS | Encounter Summary ---
Author Organization [employer] Address [address] [facility] 7t [place] [address] Care Team Providers Care Civil Drafter Name Role Phone Aarti Thacker MD Primary Care Provider [phone] Reason for Visit * Reason Comments Med Refill Encounter Details Date Type Department Care Team (Late st Contact Info) Description 06/11/2022 Refill [facility] [address] [place] [address] [phone] Aarti Thacker MD [address] [place] [address] [phone] Other chronic pain Social History Tobacco Use [...] Description 04/22/2025 1:30 PM EST Office Visit [facility] [address] [place] [phone] Aarti Thacker MD [address] [place] [address] 06/03/2025 11:00 AM EDT Telemedicine [address] [phone] Tyesha Lock RN documented as of this encounter Visit Diagnoses Diagnosis Other chronic pain documented in this encounter Care Teams Civil Drafter Relationship Specialty Start Date End Date Aarti Thacker MD [address] [place] [phone] PCP - General Family Medicine 02/04/20 documented as of this encounter
--- OUTSIDE RECORDS SUMMARY | 2025-03-15 14:04 | XMS_ITS | Encounter Summary ---
Author Organization [employer] Address [address] [facility] 7t [place] [address] Care Team Providers Care Housekeeping Department Worker Name Role Phone Aarti Thacker MD Primary Care Provider [phone] Encounter Details Date Type Department Care Team ([facility] st Contact Info) Description 01/04/2025 Orders Only [facility] [address] [place] [address] Aarti Thacker MD [address] [place], [place] [phone] Presbyesophagus (Primary Dx) Social History Tobacco Use Types Packs/Day Years [...] Description 04/22/2025 1:30 PM EST Office Visit [facility] [address] [place] [phone] Aarti Thacker MD [address] [place] [address] 06/03/2025 11:00 AM EDT Telemedicine [facility] [address] [place] [phone] Tyesha Lock RN documented as of this encounter Goals Goal Patient Goal Type Associated Problems Recent Progress Patient-Stated? Author Patient will adhere to medication regimen General No Genoveva Jones PharmD Hemoglobin A1c < 7.5 Result Component 6(08/23/2024 4:09 PM EDT) No Genoveva Jones PharmD documented as of this encounter Visit Diagnoses Diagnosis Presbyesophagus- Primary Other specified disorder of the esophagus documented in this encounter Additional Health Concerns Assessment Noted Time PHQ-9 Depression Total Score: 9 08/26/19 25 9:45 AM EDT documented as of this encounter Care Teams Housekeeping Department Worker Relationship Specialty Start Date End Date Aarti Thacker MD [address] [place] [phone] PCP - General Family Medicine 02/04/20 documented as of this encounter
== END 2025-03-15 13:31 | disposition home or self-care (01) ==
LOC: HO.HPS 12:59
PROVIDERS: PCP General Practice; Visit Provider Hospitalist
DX: I27.21 Secondary pulmonary arterial hypertension (principal); J41.0 Simple chronic bronchitis; J84.9 Interstitial pulmonary disease, unspecified; J98.4 Other disorders of lung
CPT/HCPCS: 99214

== ENCOUNTER → 2025-03-15 12:58 | Outpatient (BNVA) | payer OTHER, SELFPAY | PROVIDERS: PCP General Practice; Visit Provider Hospitalist | DX: I27.21 Secondary pulmonary arterial hypertension (principal); J41.0 Simple chronic bronchitis; J84.9 Interstitial pulmonary disease, unspecified; J98.4 Other disorders of lung; Z79.899 Other long term (current) drug therapy | CPT/HCPCS: 99212 ==